=== PATIENT | male | born 1950 | race Caucasian/White ===

== ENCOUNTER → 2023-08-03 | Outpatient (CLI) | payer MEDICARE ==
[2023-08-03 13:47] LABS: INR 1.85 (0.9-1.15); Prothrombin Time 18.7 sec (9.3-11.8)
== END | disposition home or self-care (01) ==
LOC: LAB 12:42
DX: I48.19 Other persistent atrial fibrillation (principal); Z79.01 Long term (current) use of anticoagulants
CPT/HCPCS: 36415; 85610

== ENCOUNTER → 2023-08-21 | Outpatient (CLI) | payer MEDICARE ==
[2023-08-21 10:40] LABS: INR 1.41 (0.9-1.15); Prothrombin Time 14.5 sec (9.3-11.8)
== END | disposition home or self-care (01) ==
LOC: LAB 10:09
DX: I48.19 Other persistent atrial fibrillation (principal); Z79.01 Long term (current) use of anticoagulants
CPT/HCPCS: 36415; 85610

== ENCOUNTER → 2023-10-09 | Outpatient (CLI) | payer MEDICARE ==
[2023-10-09 13:27] LABS: INR 1.8 (0.9-1.15); Prothrombin Time 18.2 sec (9.3-11.8)
== END | disposition home or self-care (01) ==
LOC: LAB 12:52
DX: I48.0 Paroxysmal atrial fibrillation (principal); Z79.01 Long term (current) use of anticoagulants
CPT/HCPCS: 36415; 85610

== ENCOUNTER → 2023-10-22 | Outpatient (CLI) | payer MEDICARE ==
[2023-10-22 11:28] LABS: Basophils # (auto) 0.1 10 ^3/uL (0-0.2); Eosinophils # (auto) 0.2 10 ^3/uL (0-0.8); Lymphocytes # (auto) 2.4 10 ^3/uL (0.4-5.4); Mean Corpuscular Volume 82.5 fL (80.0-100.0); Monocytes # (auto) 0.9 10 ^3/uL (0-1.3); Neutrophils # (auto) 5.1 10 ^3/uL (1.6-8.6)
[2023-10-22 11:30] LABS: Basophils % (auto) 0.7 % (0.0-2.0); Eosinophils % (auto) 1.8 % (0.0-7.0); Hematocrit 34.4 % (41.0-53.0); Lymphocytes % (auto) 28.2 % (10.0-50.0); Mean Corpuscular Hemoglobin 26.5 pg (28.0-32.0); Mean Corpuscular Hgb Conc. 32.1 g/dL (32.0-36.0); Monocytes % (auto) 10.4 % (0.0-12.0); Neutrophils % (auto) 58.9 % (37.0-80.0); Nucleated Red Blood Cells % 0.1 %; Red Blood Cells 4.17 10^6/uL (4.5-5.90); Red Cell Distribution Width 16.7 % (11.8-14.3); White Blood Cell 8.7 10^3/uL (4.4-10.8)
[2023-10-22 11:51] LABS: INR 2.16 (0.9-1.15); Prothrombin Time 21.6 sec (9.3-11.8)
[2023-10-22 11:56] LABS: Alanine Aminotransferase 15 U/L (7-40); Albumin 4.2 g/dL (3.2-4.8); Alkaline Phosphatase 74 U/L (46-116); Anion Gap 5 (5-15); Aspartate Aminotransferase 23 U/L (13-40); BUN/Creatinine Ratio 18.8 (10.0-20.0); Bilirubin, Total 0.2 mg/dL (0.2-1.0); Blood Urea Nitrogen 19 mg/dL (9-23); Calcium 9.2 mg/dL (8.5-10.1); Carbon Dioxide 29 mmol/L (20-30); Chloride 103 mmol/L (98-107); Glucose 115 mg/dL (74-106); Potassium 4.6 mmol/L (3.5-5.1); Sodium 137 mmol/L (136-145); Total Protein 6.4 g/dL (5.7-8.2)
== END | disposition home or self-care (01) ==
LOC: LAB 10:41
DX: E11.42 Type 2 diabetes mellitus with diabetic polyneuropathy (principal); I48.19 Other persistent atrial fibrillation; Z79.01 Long term (current) use of anticoagulants
CPT/HCPCS: 36415; 80053; 85025; 85610; 85730

== ENCOUNTER → 2023-10-30 | Outpatient (CLI) | payer MEDICARE ==
[2023-10-30 11:04] LABS: INR 2.88 (0.9-1.15); Partial Thromboplastin Time 39.6 SEC (24.5-34.5); Prothrombin Time 28.2 sec (9.3-11.8)
[2023-10-30 11:24] LABS: Alanine Aminotransferase 17 U/L (7-40); Albumin 4.2 g/dL (3.2-4.8); Alkaline Phosphatase 79 U/L (46-116); Anion Gap 8 (5-15); Aspartate Aminotransferase 17 U/L (13-40); BUN/Creatinine Ratio 17.7 (10.0-20.0); Blood Urea Nitrogen 17 mg/dL (9-23); Calcium 8.8 mg/dL (8.7-10.4); Carbon Dioxide 24 mmol/L (20-30); Chloride 104 mmol/L (98-107); Glucose 258 mg/dL (74-106); Potassium 4.2 mmol/L (3.5-5.1); Sodium 136 mmol/L (136-145)
[2023-10-30 11:25] LABS: Bilirubin, Total < 0.2 mg/dL (0.2-1.0); Total Protein 6.7 g/dL (5.7-8.2)
== END | disposition home or self-care (01) ==
LOC: LAB 10:28
DX: E11.42 Type 2 diabetes mellitus with diabetic polyneuropathy (principal); I48.19 Other persistent atrial fibrillation; Z79.01 Long term (current) use of anticoagulants
CPT/HCPCS: 36415; 80053; 83036; 85610; 85730

== ENCOUNTER 2024-01-01 15:21 | Inpatient (IN) | payer MEDICARE ==
[~2024-01-01] VITALS: Ht 170.2 cm; Wt 117.7 kg
[2024-01-01 15:42] LABS: Basophils # (auto) 0.1 10 ^3/uL (0-0.2); Basophils % (auto) 0.8 % (0.0-2.0); Eosinophils # (auto) 0.2 10 ^3/uL (0-0.8); Eosinophils % (auto) 2.6 % (0.0-7.0); Hematocrit 34.7 % (41.0-53.0); Hemoglobin 10.4 g/dL (13.5-17.5); Lymphocytes # (auto) 2.1 10 ^3/uL (0.4-5.4); Lymphocytes % (auto) 22.4 % (10.0-50.0); Mean Corpuscular Hemoglobin 22.3 pg (28.0-32.0); Mean Corpuscular Hgb Conc. 29.9 g/dL (32.0-36.0); Mean Corpuscular Volume 74.5 fL (80.0-100.0); Monocytes # (auto) 1.1 10 ^3/uL (0-1.3); Monocytes % (auto) 11.6 % (0.0-12.0); Neutrophils # (auto) 5.8 10 ^3/uL (1.6-8.6); Neutrophils % (auto) 62.6 % (37.0-80.0); Nucleated Red Blood Cells % 0.2 %; Red Blood Cells 4.66 10^6/uL (4.5-5.90); Red Cell Distribution Width 19.8 % (11.8-14.3); White Blood Cell 9.2 10^3/uL (4.4-10.8)
[2024-01-01 15:56] LABS: INR 1.61 (0.9-1.15); Partial Thromboplastin Time 29.5 SEC (24.5-34.5); Prothrombin Time 16.5 sec (9.3-11.8)
[2024-01-01 15:59] LABS: Alanine Aminotransferase 17 U/L (7-40); Albumin 4.2 g/dL (3.2-4.8); Alkaline Phosphatase 94 U/L (46-116); Anion Gap 8 (5-15); Aspartate Aminotransferase 22 U/L (13-40); BUN/Creatinine Ratio 16.3 (10.0-20.0); Blood Urea Nitrogen 16 mg/dL (9-23); Calcium 9.8 mg/dL (8.5-10.1); Carbon Dioxide 27 mmol/L (20-30); Chloride 102 mmol/L (98-107); Glucose 184 mg/dL (74-106); Potassium 4.1 mmol/L (3.5-5.1); Sodium 137 mmol/L (136-145)
[2024-01-01 16:00] VITALS: PULSE 68; RESP 19; O2SAT 95
[2024-01-01 16:00] LABS: Bilirubin, Total 0.3 mg/dL (0.2-1.0); Total Protein 6.4 g/dL (5.7-8.2)
[2024-01-01] MEDS: SODIUM CHLORIDE 0.9% 1,000 ML IV ONE (16:27)
[2024-01-01] MEDS: ASPirin 325 MG TAB PO ONE (18:25)
[2024-01-01] MEDS: ENOXAPARIN SOD 100 MG/1 ML SYRINGE SC ONE (18:25)
[2024-01-01] MEDS ORDERED: HYDR25TA5 PO (18:58)
[2024-01-01] MEDS ORDERED: CYCL-614 PO (18:58)
[2024-01-01] MEDS ORDERED: DILT1TAB2 (18:58)
[2024-01-01] MEDS ORDERED: OXY5T PO (18:58)
[2024-01-01] MEDS ORDERED: TRAM50TA2 PO (18:58)
[2024-01-01] MEDS ORDERED: WARF-115 PO (18:58)
[2024-01-01] MEDS ORDERED: METO1TAB9 PO (18:58)
[2024-01-01] MEDS ORDERED: LISI40TA16 PO (18:58)
[2024-01-01] MEDS ORDERED: METF-372 PO (18:58)
[2024-01-01] MEDS ORDERED: GABA-1250 PO (18:58)
[2024-01-01] MEDS ORDERED: NITROGLYCERIN 0.4 MG SL TAB SL PRN (19:00)
[2024-01-01] MEDS ORDERED: MORPHINE SULFATE INJ 2 MG/ml SYRG IV PRN (19:00)
[2024-01-01 19:13] LABS: Triglycerides 163 mg/dL (< 150)
[2024-01-01 19:14] LABS: LDL Cholesterol 93 mg/dL (< 100)
[2024-01-01 19:15] LABS: Cholesterol 141 mg/dL (< 200); HDL Cholesterol 31 mg/dL (40-59)
[2024-01-01 19:30] VITALS: PULSE 65; RESP 17; O2SAT 96
[2024-01-01] MEDS ORDERED: DEXTROSE (50%) 50ML SYRG IV PRN (19:30)
[2024-01-01] MEDS: SODIUM CHLORIDE 0.9% 1,000 ML IV SCH (21:30)
[2024-01-01] MEDS: MAGNESIUM SULFATE 1GM/100ML 100 ML IV SCH (21:31)
[2024-01-01] MEDS: ACCU-CHEK COMFORT CURVE STRIP VI SCH (21:42)
[2024-01-01] MEDS: CYCLOBENZAPRINE HCL 10 MG TAB PO SCH (21:47)
[2024-01-01] MEDS: GABAPENTIN 300 MG CAP PO SCH (21:47)
[2024-01-01] MEDS: InsuLIN REG 1unit/0.01ml Soln (100units/ml) SC SCH (21:48)
[2024-01-02] VITALS (8 sets, daily range): BP systolic 82–136; BP diastolic 46–74; PULSE 50–82; RESP 17–20; TEMP 97.6–98.2; O2SAT 92–97
[2024-01-02] MEDS: oxyCODONE HCL 5MG TAB PO PRN (00:37)
[2024-01-02] MEDS ORDERED: WARF-66 PO (04:09)
[2024-01-02] MEDS: SODIUM CHLORIDE 0.9% 500 ML IV ONE (04:21)
[2024-01-02 06:37] LABS: Basophils # (auto) 0.1 10 ^3/uL (0-0.2); Eosinophils # (auto) 0.3 10 ^3/uL (0-0.8); Neutrophils # (auto) 4.8 10 ^3/uL (1.6-8.6); Nucleated Red Blood Cells % 0.1 %
[2024-01-02 06:40] LABS: Eosinophils % (auto) 3.1 % (0.0-7.0); Lymphocytes # (auto) 2.2 10 ^3/uL (0.4-5.4); Lymphocytes % (auto) 26.5 % (10.0-50.0); Mean Corpuscular Hemoglobin 22.4 pg (28.0-32.0); Mean Corpuscular Hgb Conc. 29.9 g/dL (32.0-36.0); Mean Corpuscular Volume 74.8 fL (80.0-100.0); Monocytes % (auto) 11.7 % (0.0-12.0); Neutrophils % (auto) 57.7 % (37.0-80.0); Red Blood Cells 4.01 10^6/uL (4.5-5.90); Red Cell Distribution Width 19.3 % (11.8-14.3); White Blood Cell 8.2 10^3/uL (4.4-10.8)
[2024-01-02 07:14] LABS: Alanine Aminotransferase 14 U/L (7-40); Albumin 3.5 g/dL (3.2-4.8); Alkaline Phosphatase 74 U/L (46-116); Anion Gap 4 (5-15); Aspartate Aminotransferase 31 U/L (13-40); BUN/Creatinine Ratio 14.7 (10.0-20.0); Bilirubin, Total 0.2 mg/dL (0.2-1.0); Blood Urea Nitrogen 15 mg/dL (9-23); Calcium 8.8 mg/dL (8.5-10.1); Carbon Dioxide 29 mmol/L (20-30); Chloride 104 mmol/L (98-107); Glucose 125 mg/dL (74-106); Potassium 4.4 mmol/L (3.5-5.1); Sodium 137 mmol/L (136-145); Total Protein 5.6 g/dL (5.7-8.2)
[2024-01-02] MEDS: DOCUSATE SOD 100 MG CAP PO PRN (09:28)
[2024-01-02] MEDS: ENOXAPARIN SOD 40 MG/0.4 ML SYRINGE SC SCH (09:28)
[2024-01-02] MEDS: ASPirin 81 mg TAB PO SCH (10:00)
[2024-01-02 16:06] LABS: INR 2.14 (0.9-1.15); Partial Thromboplastin Time 35.6 SEC (24.5-34.5); Prothrombin Time 21.4 sec (9.3-11.8)
[2024-01-02] MEDS: POLYETHYLENE GLYCOL 17 GM PWDR PO PRN (17:20)
[2024-01-02] MEDS: WARFARIN SODIUM 2.5 MG TAB PO ONE (18:00)
[2024-01-03] VITALS (10 sets, daily range): BP systolic 124–141; BP diastolic 73–95; PULSE 63–93; RESP 18–20; TEMP 97.4–98.2; O2SAT 90–96
[2024-01-03 07:40] LABS: INR 2.2 (0.9-1.15)
[2024-01-03] MEDS: WARFARIN SODIUM 5 MG TAB PO ONE (17:01)
[2024-01-04] VITALS (8 sets, daily range): BP systolic 108–136; BP diastolic 62–73; PULSE 24–96; RESP 17–20; TEMP 97.8–98.7; O2SAT 93–97
[2024-01-04 07:06] LABS: INR 1.91 (0.9-1.15); Prothrombin Time 19.3 sec (9.3-11.8)
[2024-01-04] MEDS ORDERED: WARFARIN SODIUM 5 MG TAB PO ONE (18:00)
[2024-01-05] VITALS (8 sets, daily range): BP systolic 114–136; BP diastolic 58–85; PULSE 76–103; RESP 16–22; TEMP 97.4–98.8; O2SAT 95–99
[2024-01-05 06:27] LABS: INR 1.42 (0.9-1.15); Prothrombin Time 14.7 sec (9.3-11.8)
[2024-01-06] VITALS (8 sets, daily range): BP systolic 103–130; BP diastolic 67–85; PULSE 77–108; RESP 18–20; TEMP 97.8–98.3; O2SAT 90–97
[2024-01-06] MEDS: GABAPENTIN 300 MG CAP PO SCH (05:55)
[2024-01-07] VITALS (48 sets, daily range): BP systolic 53–157; BP diastolic 18–92; PULSE 55–104; RESP 14–24; TEMP 96–98.9; O2SAT 95–100
[2024-01-07] MEDS: PROPOFOL 400 ML IV ONE (07:02)
[2024-01-07] MEDS ORDERED: KETAMINE 50mg/ML 1ml syringe ONE (07:04)
[2024-01-07] MEDS ORDERED: fentaNYL CITRATE 100 MCG/2 ML VL ONE (07:05)
[2024-01-07] MEDS ORDERED: MIDAZOLAM HCL 2MG/2ML 2ml VIAL (1mg/ml) ONE (07:05)
[2024-01-07] MEDS ORDERED: HYDROmorphone HCL 2 MG/ML VL/or syr ONE (07:05)
[2024-01-07] MEDS: levoFLOXacin 750MG 150 ML IV ONE (07:45)
[2024-01-07] MEDS: ceFAZolin 2 GM/D5W50ml 50 ML IV ONE (07:53)
[2024-01-07] MEDS: ONDANSETRON HCL 4 MG/2 ML VIAL IV ONE (11:45)
[2024-01-07] MEDS ORDERED: MIDAZOLAM HCL 2MG/2ML 2ml VIAL (1mg/ml) IV PRN (11:45)
[2024-01-07] MEDS ORDERED: fentaNYL CITRATE 100 MCG/2 ML VL IV PRN (11:45)
[2024-01-07] MEDS ORDERED: HYDROmorphone HCL 2 MG/ML VL/or syr IV PRN (11:45)
[2024-01-07] MEDS: HYDROmorphone HCL 2 MG/ML VL/or syr ONE (11:56)
[2024-01-07] MEDS: MIDAZOLAM DRIP 50 mg/50mL 50 ML IV ONE (11:56)
[2024-01-07] MEDS: MIDAZOLAM DRIP 50 mg/50mL 50 ML IV SCH (11:57)
[2024-01-07] MEDS: ACCU-CHEK COMFORT CURVE STRIP VI ONE (11:58)
[2024-01-07] MEDS: fentaNYL Drip 2500mCg/250mlNS 250 ML IV SCH (12:19)
[2024-01-07 13:12] LABS: Base Excess 3.1 mmol/L (-2.0-2.0)
[2024-01-07] MEDS: NOREPINEPHRINE 8 MG/250ML KIT 250 ML IV SCH (16:10)
[2024-01-07] MEDS: SODIUM CHLORIDE 0.9% 1,000 ML IV ONE (16:10)
[2024-01-07] MEDS: SODIUM CHLORIDE 0.9% 1,000 ML IV SCH (17:41)
[2024-01-07 18:55] LABS: Alanine Aminotransferase 12 U/L (7-40); Albumin 3.6 g/dL (3.2-4.8); Alkaline Phosphatase 79 U/L (46-116); Anion Gap 4 (5-15); Aspartate Aminotransferase 19 U/L (13-40); BUN/Creatinine Ratio 14.8 (10.0-20.0); Blood Urea Nitrogen 12 mg/dL (9-23); Calcium 8.5 mg/dL (8.5-10.1); Carbon Dioxide 28 mmol/L (20-30); Chloride 104 mmol/L (98-107); Glucose 223 mg/dL (74-106); Magnesium 1.7 mg/dL (1.6-2.6); Potassium 5.1 mmol/L (3.5-5.1); Sodium 136 mmol/L (136-145)
[2024-01-07 18:56] LABS: Bilirubin, Total 0.3 mg/dL (0.2-1.0)
[2024-01-07 19:20] LABS: Basophils # (auto) 0 10 ^3/uL (0-0.2); Basophils % (auto) 0.1 % (0.0-2.0); Eosinophils # (auto) 0 10 ^3/uL (0-0.8); Hemoglobin 8.2 g/dL (13.5-17.5); Lymphocytes # (auto) 0.8 10 ^3/uL (0.4-5.4); Monocytes # (auto) 0.2 10 ^3/uL (0-1.3); Monocytes % (auto) 2.5 % (0.0-12.0)
[2024-01-07 19:22] LABS: Hematocrit 27.9 % (41.0-53.0); Lymphocytes % (auto) 8.6 % (10.0-50.0); Mean Corpuscular Hemoglobin 22.4 pg (28.0-32.0); Mean Corpuscular Hgb Conc. 29.4 g/dL (32.0-36.0); Neutrophils # (auto) 7.9 10 ^3/uL (1.6-8.6); Neutrophils % (auto) 88.8 % (37.0-80.0); Red Blood Cells 3.67 10^6/uL (4.5-5.90); Red Cell Distribution Width 19.7 % (11.8-14.3); White Blood Cell 8.9 10^3/uL (4.4-10.8)
[2024-01-08] VITALS (84 sets, daily range): BP systolic 94–164; BP diastolic 38–150; PULSE 54–134; RESP 11–31; TEMP 98.1–98.4; O2SAT 92–100
[2024-01-08 09:15] LABS: Base Excess 2.5 mmol/L (-2.0-2.0)
[2024-01-08] MEDS: SODIUM CHLORIDE 0.9% 1,000 ML IV SCH (09:25)
[2024-01-08] MEDS: PANTOPRAZOLE 40 MG/10 ML VIAL INJ IV SCH (12:09)
[2024-01-08] MEDS ORDERED: MORPHINE SULFATE INJ 2 MG/ml SYRG IV PRN (12:30)
[2024-01-08] MEDS ORDERED: ONDANSETRON HCL 4 MG/2 ML VIAL IV PRN (12:30)
[2024-01-08] MEDS: MORPHINE SULFATE INJ 2 MG/ml SYRG IV PRN (12:48)
[2024-01-09 05:32] VITALS: BP 96/54; PULSE 93; RESP 19; TEMP 98.4; O2SAT 93
[2024-01-09 08:00] VITALS: PULSE 103; PULSE 91; RESP 18; O2SAT 94
[2024-01-09 09:16] VITALS: BP 137/86; PULSE 92; RESP 20; TEMP 98.1; O2SAT 97
[2024-01-09 12:52] VITALS: BP 127/64; PULSE 82; RESP 18; TEMP 97.7; O2SAT 94
[2024-01-09 17:06] VITALS: BP 151/79; PULSE 100; RESP 20; TEMP 98; O2SAT 94
[2024-01-09 20:00] VITALS: PULSE 87; PULSE 88; RESP 18; O2SAT 97
[2024-01-10] MEDS: ACETAMINOPHEN 325 MG TAB PO PRN (04:24)
[2024-01-10 08:00] VITALS: PULSE 104; PULSE 87; RESP 18; O2SAT 97
[2024-01-10 09:00] VITALS: BP 147/77; PULSE 99; RESP 16; TEMP 97.6; O2SAT 93
[2024-01-10 13:00] VITALS: BP 132/74; PULSE 81; RESP 16; TEMP 97.4; O2SAT 98
[2024-01-10 16:17] LABS: INR 1.03 (0.9-1.15); Prothrombin Time 10.9 sec (9.3-11.8)
[2024-01-10 17:00] VITALS: BP 144/80; PULSE 85; RESP 16; TEMP 97.6; O2SAT 95
[2024-01-10 20:00] VITALS: PULSE 108; PULSE 110; RESP 21; O2SAT 94
[2024-01-10] MEDS: HYDROcodone-ACET 7.5/325MG TAB PO ONE (23:37)
[2024-01-11 08:15] VITALS: PULSE 102; PULSE 108; RESP 21; O2SAT 0
[2024-01-11 09:00] VITALS: BP 128/66; PULSE 83; RESP 18; TEMP 98; O2SAT 100
[2024-01-11 10:44] LABS: Basophils # (auto) 0 10 ^3/uL (0-0.2); Eosinophils # (auto) 0.2 10 ^3/uL (0-0.8); Hemoglobin 8.9 g/dL (13.5-17.5); Lymphocytes # (auto) 1.1 10 ^3/uL (0.4-5.4); Mean Corpuscular Volume 75.2 fL (80.0-100.0); Neutrophils # (auto) 5.5 10 ^3/uL (1.6-8.6); Nucleated Red Blood Cells % 0.1 %
[2024-01-11 10:46] LABS: Basophils % (auto) 0.4 % (0.0-2.0); Eosinophils % (auto) 2.8 % (0.0-7.0); Hematocrit 29.7 % (41.0-53.0); Lymphocytes % (auto) 14.4 % (10.0-50.0); Mean Corpuscular Hemoglobin 22.4 pg (28.0-32.0); Mean Corpuscular Hgb Conc. 29.8 g/dL (32.0-36.0); Monocytes # (auto) 0.8 10 ^3/uL (0-1.3); Monocytes % (auto) 10.5 % (0.0-12.0); Neutrophils % (auto) 71.9 % (37.0-80.0); Red Blood Cells 3.95 10^6/uL (4.5-5.90); Red Cell Distribution Width 20.5 % (11.8-14.3); White Blood Cell 7.7 10^3/uL (4.4-10.8)
[2024-01-11] MEDS ORDERED: OXYCODONE W/ ACETAMINOPHEN 5/325MG TABLET PO PRN (11:30)
[2024-01-11] MEDS ORDERED: POLY1POW50 PO (11:39)
[2024-01-11] MEDS ORDERED: CETI10TA2 PO (11:39)
[2024-01-11] MEDS ORDERED: OMEP20TA PO (11:39)
[2024-01-11 13:00] VITALS: BP 145/70; PULSE 85; RESP 17; TEMP 98; O2SAT 100
[2024-01-11] MEDS: HYDROcodone-ACET 7.5/325MG TAB PO PRN (13:48)
[2024-01-11] MEDS: WARFARIN SODIUM 5 MG TAB PO ONE (16:56)
[2024-01-11 17:00] VITALS: BP 123/66; PULSE 74; RESP 17; TEMP 98.1; O2SAT 100
[2024-01-11 20:00] VITALS: PULSE 88; PULSE 89; RESP 16; O2SAT 100
[2024-01-11] MEDS: OXYCODONE W/ ACETAMINOPHEN 5/325MG TABLET PO PRN (20:03)
[2024-01-11 21:00] VITALS: BP 153/72; PULSE 88; RESP 17; TEMP 98.1; O2SAT 100
[2024-01-12 00:15] LABS: COVID19 ANTIGEN SOFIA FIA NEGATIVE (NEGATIVE)
[2024-01-12 01:00] VITALS: BP 123/75; PULSE 77; RESP 17; TEMP 97.4; O2SAT 100
[2024-01-12 04:54] VITALS: BP 130/69; PULSE 75; RESP 14; TEMP 97.5; O2SAT 100
[2024-01-12 08:00] VITALS: PULSE 92; RESP 20; O2SAT 92
[2024-01-12 09:18] VITALS: BP 126/64; PULSE 72; RESP 18; TEMP 99; O2SAT 98
[2024-01-12 10:53] LABS: Basophils # (auto) 0.1 10 ^3/uL (0-0.2); Basophils % (auto) 0.9 % (0.0-2.0); Eosinophils # (auto) 0.3 10 ^3/uL (0-0.8); Lymphocytes # (auto) 1.1 10 ^3/uL (0.4-5.4); Mean Corpuscular Hemoglobin 22.2 pg (28.0-32.0); Monocytes # (auto) 0.7 10 ^3/uL (0-1.3); Red Cell Distribution Width 20.3 % (11.8-14.3)
[2024-01-12 10:56] LABS: Hemoglobin 8.9 g/dL (13.5-17.5); Lymphocytes % (auto) 16.6 % (10.0-50.0); Mean Corpuscular Hgb Conc. 29.6 g/dL (32.0-36.0); Mean Corpuscular Volume 75.2 fL (80.0-100.0); Monocytes % (auto) 9.8 % (0.0-12.0); Neutrophils # (auto) 4.6 10 ^3/uL (1.6-8.6); Neutrophils % (auto) 68.7 % (37.0-80.0); Red Blood Cells 3.99 10^6/uL (4.5-5.90); White Blood Cell 6.7 10^3/uL (4.4-10.8)
[2024-01-12 10:58] LABS: Chloride 102 mmol/L (98-107); Potassium 3.9 mmol/L (3.5-5.1); Sodium 138 mmol/L (136-145)
[2024-01-12 11:00] LABS: Anion Gap 3 (5-15); Carbon Dioxide 33 mmol/L (20-30)
[2024-01-12 11:04] LABS: BUN/Creatinine Ratio 12.9 (10.0-20.0); Blood Urea Nitrogen 8 mg/dL (9-23); Glucose 124 mg/dL (74-106)
[2024-01-12 11:06] LABS: INR 1.01 (0.9-1.15); Prothrombin Time 10.7 sec (9.3-11.8)
[2024-01-12 12:46] VITALS: BP 123/69; PULSE 73; RESP 18; TEMP 98.9; O2SAT 98
[2024-01-12] MEDS: levoFLOXacin 250 MG TAB PO ONE (12:47)
[2024-01-12] MEDS: DexAMETHasone SOD PHOS 10MG/1ML VIAL INJ IV SCH (15:00)
[2024-01-12 17:27] VITALS: BP 129/76; PULSE 79; RESP 18; TEMP 98.1; O2SAT 99
[2024-01-12] MEDS: WARFARIN SODIUM 5 MG TAB PO ONE (17:27)
[2024-01-13] MEDS ORDERED: levoFLOXacin 250 MG TAB PO SCH (10:00)
== END 2024-01-12 19:06 | DRG 471 ==
LOC: ER 15:21 → TELE 18:56 → TELE-EAST 22:10 → ICU WEST 01-07 14:36 → TELE-WESTW 01-08 18:19 → WEST WING 01-12 04:20
PROVIDERS: ADMIT Family Medicine; ATTEND Family Medicine
PROC: 0RB30ZZ Excision of Cervical Vertebral Disc, Open Approach (ICD-10-PCS; 2024-01-07)
PROC: 01N10ZZ Release Cervical Nerve, Open Approach (ICD-10-PCS; 2024-01-07)
PROC: 00NW0ZZ Release Cervical Spinal Cord, Open Approach (ICD-10-PCS; 2024-01-07)
PROC: 4A11X4G Monitoring of Peripheral Nervous Electrical Activity, Intraoperative, External Approach (ICD-10-PCS; 2024-01-07)
PROC: 5A1935Z Respiratory Ventilation, Less than 24 Consecutive Hours (ICD-10-PCS; 2024-01-07)
PROC: 0BH18EZ Insertion of Endotracheal Airway into Trachea, Via Natural or Artificial Opening Endoscopic (ICD-10-PCS; 2024-01-07)
PROC: 0RG20A0 Fusion of 2 or more Cervical Vertebral Joints with Interbody Fusion Device, Anterior Approach, Anterior Column, Open Approach (ICD-10-PCS; principal; 2024-01-07 08:22)
PROC: 0BP1XDZ Removal of Intraluminal Device from Trachea, External Approach (ICD-10-PCS; 2024-01-08)
DX: M48.02 Spinal stenosis, cervical region (principal); J96.01 Acute respiratory failure with hypoxia; R57.1 Hypovolemic shock; I20.0 Unstable angina; M50.01 Cervical disc disorder with myelopathy, high cervical region; E83.42 Hypomagnesemia; M50.11 Cervical disc disorder with radiculopathy, high cervical region; Z20.822 Contact with and (suspected) exposure to COVID-19; I48.91 Unspecified atrial fibrillation; E11.9 Type 2 diabetes mellitus without complications; I10 Essential (primary) hypertension; E66.01 Morbid (severe) obesity due to excess calories; G47.33 Obstructive sleep apnea (adult) (pediatric); G89.4 Chronic pain syndrome; E78.5 Hyperlipidemia, unspecified; J44.9 Chronic obstructive pulmonary disease, unspecified; Z63.4 Disappearance and death of family member; Z98.84 Bariatric surgery status; Z79.01 Long term (current) use of anticoagulants; Z82.49 Family history of ischemic heart disease and other diseases of the circulatory system; Z88.8 Allergy status to other drugs, medicaments and biological substances; Z68.39 Body mass index [BMI] 39.0-39.9, adult
CPT/HCPCS: 36415; 36600; 70490; 71045; 72040; 76000; 80048; 80053; 80061; 82805; 82962; 83605; 83735; 83880; 84443; 84484; 85025; 85379; 85610; 85730; 86850; 86900; 86901; 87070; 87081; 87205; 87426; 92507; 92610; 93005; 93306; 94003; 94640; 96360; 96361; 96372; C9113; G0378; J1815; J2250; J2704

== ENCOUNTER 2025-01-14 23:47 | Inpatient (IN) | payer MEDICARE ==
[~2025-01-14] VITALS: Ht 170.2 cm; Wt 113.0 kg
[~2025-01-14 23:47] MED LIST: CETI10TA2 PO; CYCL-614 PO; DILT1TAB2; GABA-1250 PO; HYDR25TA5 PO; LISI40TA16 PO; METF-372 PO; METO1TAB9 PO; OMEP20TA PO; OXY5T PO; POLY1POW50 PO; TRAM50TA2 PO; WARF-115 PO; WARF-66 PO
[2025-01-15] VITALS (10 sets, daily range): BP systolic 103–117; BP diastolic 47–66; PULSE 63–103; RESP 16–24; TEMP 97.2–98.3; O2SAT 93–98
[2025-01-15] MEDS: DICYCLOMINE HCL (10MG/ML) 2 ML AMPULE IM ONE (00:29)
[2025-01-15] MEDS: ONDANSETRON HCL 4 MG/2 ML VIAL IV ONE (00:29)
[2025-01-15] MEDS: HYDROcodone-ACET 10/325MG TAB PO ONE (00:30)
[2025-01-15] MEDS: SODIUM CHLORIDE 0.9% 1,000 ML IV ONE ×2 (00:34→01:56)
[2025-01-15 00:41] LABS: Basophils # (auto) 0.1 10 ^3/uL (0-0.2)
--- NOTE | 2025-01-15 00:43 | ED.PDOC ---
History of Present Illness HPI Comments 74-year-old male with a history of AFib, anemia, hypertension, ARIANNE, gastric bypass and chronic back pain brought in by EMS from home after a near syncopal episode. Patient states he developed indigestion around 2330 which progressed to severe epigastric pain radiating to the chest, mid and lower abdomen. Patient states the pain is sharp and pressure-like, severe, associated with nausea and constipation, no particular exacerbating or alleviating factors. Patient denies vomiting, shortness a breath, edema, fever or urinary symptoms. Patient's blood pressure was noted to be in the 80s systolic on arrival by EMS. An IV fluid bolus was initiated by EMS. Chief Complaint: General Weakness Time Seen by MD: 23:52 Primary Care Provider: Elva Allergies: Coded Allergies: Statins (Verified Allergy, Severe, 01/01/24) Home Meds Reported Medications Cetirizine Hcl (Kls Aller-Renetta) 10 Mg Tab, 1 TAB PO DAILY, #30 TAB 3 Refills 01/11/24 Omeprazole (Gnp Omeprazole) 20 Mg Tab, 1 TAB PO BID, #90 TAB 1 Refill 01/11/24 Polyethylene Glycol 3350 (Polyethylene Glycol) 17 Gm/Scoop Pow, 17 GM PO DAILY, POW 01/11/24 Warfarin Sodium (Warfarin Sodium) 5 Mg Tab, 15 MG PO MWFSa for 30 Days, MG 01/02/24 Diltiazem Hcl (Cardizem La) 120 Mg Tab, 1 01/01/24 Hctz (Hydrochlorothiazide) 25 Mg Tab, 1 TAB PO DAILY 01/01/24 Lisinopril (Lisinopril) 40 Mg Tab, 1 TAB PO DAILY 01/01/24 Warfarin Sodium (Warfarin Sodium) 10 Mg Tab, 1 TAB PO TUE,BROOKE,SUN 01/01/24 Tramadol Hcl (Tramadol Hcl) 50 Mg Tab, 1 TAB PO BIDPRN PRN 01/01/24 Cyclobenzaprine HCl (Cyclobenzaprine Hydrochlo) 5 Mg Tab, 1 TAB PO BID 01/01/24 Gabapentin (Gabapentin) 300 Mg Cap, 3 CAP PO TID 01/01/24 Metoprolol Succinate (Metoprolol Succinate Er) 100 Mg Tab, 1 TAB PO DAILY 01/01/24 Metformin Hydrochloride (Metformin Hcl) 1,000 Mg Tab, 1 TAB PO BID 01/01/24 Oxycodone Hcl (OXYCODONE HCL) 5 Mg Tb, 1 TAB PO TID PRN 01/01/24 Past Medical History PAST MEDICAL HISTORY: AFIB, HTN Past Medical History (Other): Anemia, sleep apnea Surgical History (Other): Gastric bypass, right knee, cervical and lumbar laminectomies Family History Family History: Reviewed,noncontributory to illness Social History Smoker: Non-Smoker, Unknown Alcohol: Denies ETOH Use, Unknown Drugs: Denies Drug Use Lives In: Home All Other Systems: Reviewed and Negative (Comprehensive systems review obtained and negative except for what is stated in the HPI.) Physical Exam General Appearance: Moderate Distress, Obese HEENT: Other (Pupils and face symmetric. Moist mucous membranes.) Neck: Full Range of Motion, Non-Tender, Normal Inspection, Supple Respiratory: Lungs Clear, No Accessory Muscle Use, No Respiratory Distress, Normal Breath Sounds Cardiovascular: Irregular, No Edema, No JVD Breast Exam: Deferred Gastrointestinal: Diffuse, Soft, Tenderness Genitalia: Deferred Pelvic: Deferred Rectal: Deferred Extremities: Normal inspection, Normal range of motion, Non-tender, No pedal edema Neurologic: Alert (Oriented x4), Normal Affect, Normal Mood, Other (Moves all e xtremities. Light touch sensation grossly intact. No gross focal deficit.) Cerebellar Function: NOT DONE Reflexes: NOT DONE Skin: Dry, Pallor, Warm Lymphatic: NOT DONE Was a procedure done? Was a procedure done?: No EKG EKG : Comments AFib, rate 62, QRS prolonged at 154, normal QTC interval, left axis deviation, old inferior infarct, right bundle-branch block and left anterior fascicular block, nonspecific T change. Differential Dx Considerations may include: Vasovagal reaction, ACS, UT, arrhythmia, CHF, gastritis, gastroenteritis, pancreatitis, bowel obstruction, ischemic bowel, diverticular disease, biliary tract disease, colitis, UTI, anemia, electrolyte imbalance, hypovolemia, orthostasis, renal failure, among others X-Ray, Labs, Meds, VS Vital Signs Date Time Temp Pulse Resp B/P (MAP) Pulse Ox O2 Delivery O2 Flow Rate FiO2 01/15/25 00:17 63 117/47 (70) 01/15/25 00:16 97.2 61 22 102/54 (70) 92 97.2 01/15/25 00:16 64 20 108/60 (76) 92 01/15/25 00:04 98.8 69 22 80/62 (68) 89 98.8 01/14/25 23:49 62 Lab Test 01/15/25 01:28 01/15/25 00:28 Range/Units Troponin I High Sensitivity 4 4 </=54 ng/L White Blood Count 9.7 4.4-10.8 10^3/uL Red Blood Count 4.50 4.5-5.90 10^6/uL Hemoglobin 10.0 L 13.5-17.5 g/dL Hematocrit 33.9 L 41.0-53.0 % Mean Corpuscular Volume 75.4 L 80.0-100.0 fL Mean Corpuscular Hemoglobin 22.3 L 28.0-32.0 pg Mean Corpuscular Hemoglobin Concent 29.6 L 32.0-36.0 g/dL Red Cell Distribution Width 18.0 H 11.8-14.3 % Platelet Count 421 140-450 10^3/uL Mean Platelet Volume 7.0 6.9-10.8 fL Neutrophils (%) (Auto) 69.2 37.0-80.0 % Lymphocytes (%) (Auto) 21.0 10.0-50.0 % Monocytes (%) (Auto) 7.0 0.0-12.0 % Eosinophils (%) (Auto) 1.4 0.0-7.0 % Basophils (%) (Auto) 1.4 0.0-2.0 % Neutrophils # (Auto) 6.7 1.6-8.6 10 ^3/uL Lymphocytes # (Auto) 2.0 0.4-5.4 10 ^3/uL Monocytes # (Auto) 0.7 0-1.3 10 ^3/uL Eosinophils # (Auto) 0.1 0-0.8 10 ^3/uL Basophils # (Auto) 0.1 0-0.2 10 ^3/uL Nucleated Red Blood Cells 0.5 % Sodium Level 138 136-145 mmol/L Potassium Level 4.1 3.5-5.1 mmol/L Chloride Level 103 98-107 mmol/L Carbon Dioxide Level 27 20-31 mmol/L Anion Gap 8 5-15 Blood Urea Nitrogen 18 9-23 mg/dL Creatinine 1.02 0.700-1.30 mg/dL Glomerular Filtration Rate Calc 77 >90 mL/min BUN/Creatinine Ratio 17.6 10.0-20.0 Serum Glucose 210 H 74-106 mg/dL Lactic Acid Level 2.6 *H 0.4-2.0 mmol/L Calcium Level 8.8 8.7-10.4 mg/dL Total Bilirubin < 0.2 L 0.2-1.0 mg/dL Aspartate Amino Transferase (AST) 12 L 13-40 U/L Alanine Aminotransferase (ALT) < 9 7-40 U/L Alkaline Phosphatase 76 46-116 U/L B-Type Natriuretic Peptide 72.67 0-100 pg/mL Total Protein 6.4 5.7-8.2 g/dL Albumin 4.0 3.2-4.8 g/dL Lipase 54 H 12-53 U/L Current Medications Medications (Trade) Dose Ordered Sig/Vincent Route Start Time Stop Time Status Last Admin Sodium Chloride 1,000 ml @ 1,000 mls/hr Q1H ONCE IV 01/15/25 00:15 01/15/25 01:14 DC 01/15/25 00:34 Dicyclomine HCl (Bentyl Injection) 20 mg ONCE ONCE IM 01/15/25 00:15 01/15/25 00:16 DC 01/15/25 00:29 Ondansetron HCl (Zofran) 4 mg ONCE ONCE IV 01/15/25 00:15 01/15/25 00:16 DC 01/15/25 00:29 Acetaminophen/ Hydrocodone Bitart ([place]iberty 10/325MG Tab) 2 tab ONCE ONCE PO 01/15/25 00:15 01/15/25 00:16 DC 01/15/25 00:30 Sodium Chloride 1,000 ml @ 1,000 mls/hr Q1H ONCE IV 01/15/25 01:30 01/15/25 02:29 DC 01/15/25 01:56 Piperacillin Sod/ Tazobactam Sod 100 ml @ 100 mls/hr ONCE ONCE IV 01/15/25 01:30 01/15/25 02:29 DC 01/15/25 01:45 Albuterol (Ventolin Medneb) 5 mg ONCE ONCE NEB 01/15/25 01:30 01/15/25 01:31 DC 01/15/25 01:39 Ipratropium [place] (Atrovent Medneb) 0.5 mg ONCE ONCE NEB 01/15/25 01:30 01/15/25 01:31 DC 01/15/25 01:39 Methylprednisolone Sodium Succinate (Solu Medrol) 125 mg ONCE ONCE IV 01/15/25 01:30 01/15/25 01:31 DC 01/15/25 01:45 PROCEDURE(s): CXRP - CHEST PORTABLE REASON: cp ORDER NUMBER(s): [id number], ACCESSION NUMBER(s): [id number] CHEST RADIOGRAPH Indication: cp Technique: Single frontal view of the chest was obtained Comparison: XY CHEST PORTABLE on DOS: 01/07/24, XY CHEST PORTABLE on DOS: 01/01/24 FINDINGS: Lines and Tubes: None Lungs: Clear Pleura: No effusion. No pneumothorax. Cardiomediastinal contours: Unremarkable Bones: Unremarkable IMPRESSION: Clear lungs. EDURE(s): ABPL - CT AB PEL WO CON-NO ORAL OR IV REASON: abd pain near syncope hypotension ORDER NUMBER(s): [id number], ACCESSION NUMBER(s): [id number] Exam: CT CT AB PEL WO CON-NO ORAL OR IV History: abd pain near syncope hypotension Comparison Study: None Technique: Multidetector spiral CT of the abdomen was performed from lung bases to pubic symphysis. Imaging was performed without IV contrast. Axial, coronal and sagittal multiplanar reformats were obtained from the axial data set by the technologist. Radiation Dose : 1. Abdomen/Pelvis: CTDIvol 25 mGy, DLP 1596 mGy*cm. Findings: Evaluation of solid organs is limited due to lack of intravenous contrast use. Lung Bases: No acute or significant lung base finding. Normal heart size. No pleural or pericardial effusion. Liver: The liver is normal in size. No focal lesions. Gallbladder and Biliary Tree: Gallbladder is surgically absent. Spleen: Unremarkable Pancreas: The pancreas is grossly normal in appearance. Adrenal Glands: Unremarkable Kidneys: Kidneys are grossly normal without calculi or hydronephrosis. Large left renal cystic lesion measuring 10 cm. Bilateral perinephric fat stranding. The large left renal cystic lesion can be further evaluated with ultrasound if clinically indicated. Bladder: Grossly unremarkable for degree of distention. Bowel: Status post gastric bypass with foci of air seen scattered adjacent to the distal stomach. Moderate amount of free air seen along the midline anterior abdomen. Fecal retention throughout the colon. Ascites: Trace perisplenic ascites. Lymphadenopathy: No mesenteric, retroperitoneal or periportal lymphadenopathy. Abdominal Wall and Mesentery: Unremarkable. Vasculature: The visualized abdominal aorta is normal in size and caliber. Evaluation of abdominal and pelvic vessels is limited due to lack of intravenous contrast. Pelvic Organs: Unremarkable Musculoskeletal: No aggressive focal bony lesions, acute fractures or dislocation. IMPRESSION: Status post gastric bypass with foci of free air adjacent to the stomach concerning for perforation at the surgical incision sites from the bypass versus due to ulceration of the stomach. There is moderate amount of free air along the midline anterior abdomen adjacent to the transverse colon. Critical findings Critical Result: Pneumoperitoneum Findings discussed with JOSÉ MIGUEL MENENDEZ at 01/15/2025 01:46 AM, and acknowledged receipt and understanding of the findings. X-Ray, Labs, Meds, VS Comment 74-year-old male with a history of AFib, hypertension, ARIANNE and anemia brought in by EMS complaining of a near syncopal episode, chest and abdominal pain associated with nausea Vitals remarkable for blood pressure 80/62, respiratory rate 22, oxygen saturation 89% on room air Exam remarkable for moderate distress, pallor, irregularly irregular heart rhythm, diffuse abdominal tenderness Rhythm strip independently interpreted by me: AFib, rate sixty-two Chest x-ray negative CT abdomen and pelvis IMPRESSION: Status post gastric bypass with foci of free air adjacent to the stomach concerning for perforation at the surgical incision sites from the bypass versus due to ulceration of the stomach. There is moderate amount of free air along the midline anterior abdomen adjacent to the transverse colon. CBC remarkable for hemoglobin 10, hematocrit 33, CMP remarkable for glucose 210, lipase 54, BNP and 1st troponin negative, UA pending, lactic 2.6 Patient treated with the following in the ED: 3L 0.9 normal saline IV bolus, [place] 10/325 mg 2 tabs p.o., Zofran 4 mg IV, Bentyl 20 mg IM, Zosyn 4.5 g IV, vancomycin 1 g IV On re-evaluation, blood pressure was 102/54 and patient stated pain had improved. Case discussed with Dr. Bird, who requested NG tube and Marquez catheter be inserted and will see the patient. Plan is to admit the patient for IV antibiotics, blood pressure support, respiratory support and surgical evaluation. Time of 1ST Reevaluation: 00:42 Reevaluation 1ST: Improved Patient Education/Counseling: Diagnosis, Treatment, Need For Follow Up Family Education/Counseling: No Family Present Sepsis Sepsis Reasesment Focused Exam Sepsis focused exam: focus exam completed (Blood pressure 117 systolic, capillary refill less than 2 seconds, pain improved, other vitals stable), time: (0155) Departure 1 Departure Time of Disposition: 01:55 Impression: Primary Impression: Near syncope Additional Impressions: Perforated viscus Sepsis Qualified Codes: A41.9 - Sepsis, unspecified organism Disposition: ADMITTED INPATIENT Admit to: [facility] Condition: Guarded Critical Care Note Critical Care Time?: Yes (55 min-critical care time only) Critical care comment: Critical care time including multiple bedside re-evaluations, review of lab and imaging studies, and discussion of the case with the admitting and consulting providers. Patient is high risk for hemodynamic and/or respiratory decom pensation. Stability Stability form required: No Heart Score Heart Score: Heart Score Response (Comments) Value History Moderate Suspicious 1 EKG Repolarization Disturb 1 Age >65 2 Risk Factors >3 or Hx ASHD 2 Troponin Normal limit 0 Total 6 JOSÉ MIGUEL MENENDEZ MD January 15, 2025 00:43
[2025-01-15 01:04] LABS: Alkaline Phosphatase 76 U/L (46-116); Anion Gap 8 (5-15); BUN/Creatinine Ratio 17.6 (10.0-20.0); Blood Urea Nitrogen 18 mg/dL (9-23); Calcium 8.8 mg/dL (8.7-10.4); Carbon Dioxide 27 mmol/L (20-31); Chloride 103 mmol/L (98-107); Potassium 4.1 mmol/L (3.5-5.1); Sodium 138 mmol/L (136-145); Total Protein 6.4 g/dL (5.7-8.2)
[2025-01-15 01:06] LABS: Alanine Aminotransferase < 9 U/L (7-40); Aspartate Aminotransferase 12 U/L (13-40); Bilirubin, Total < 0.2 mg/dL (0.2-1.0); Glucose 210 mg/dL (74-106); Lipase 54 U/L (12-53)
[2025-01-15 01:12] LABS: Neutrophils # (auto) 6.7 10 ^3/uL (1.6-8.6)
[2025-01-15 01:13] LABS: Basophils % (auto) 1.4 % (0.0-2.0); Eosinophils # (auto) 0.1 10 ^3/uL (0-0.8); Eosinophils % (auto) 1.4 % (0.0-7.0); Hematocrit 33.9 % (41.0-53.0); Mean Corpuscular Hemoglobin 22.3 pg (28.0-32.0); Mean Corpuscular Hgb Conc. 29.6 g/dL (32.0-36.0); Mean Corpuscular Volume 75.4 fL (80.0-100.0); Monocytes # (auto) 0.7 10 ^3/uL (0-1.3); Neutrophils % (auto) 69.2 % (37.0-80.0); Nucleated Red Blood Cells % 0.5 %; Platelet Count (auto) 421 10^3/uL (140-450); White Blood Cell 9.7 10^3/uL (4.4-10.8)
[2025-01-15 01:18] LABS: Lactic Acid w/Reflex 2.6 mmol/L (0.4-2.0)
--- NOTE | 2025-01-15 01:19 | DVH ---
CHEST RADIOGRAPH Indication: cp Technique: Single frontal view of the chest was obtained Comparison: XY CHEST PORTABLE on DOS: 01/07/24, XY CHEST PORTABLE on DOS: 01/01/24 FINDINGS: Lines and Tubes: None Lungs: Clear Pleura: No effusion. No pneumothorax. Cardiomediastinal contours: Unremarkable Bones: Unremarkable IMPRESSION: Clear lungs.
[2025-01-15] MEDS: IPRATROPIUM BROM 0.5 MG/2.5ML INH SOL NEB ONE (01:39)
[2025-01-15] MEDS: ALBUTEROL SULF 2.5 MG/0.5ML(0.5%) NEB SOLN NEB ONE (01:39)
[2025-01-15] MEDS ORDERED: DOCUSATE SOD 100 MG CAP PO PRN (01:45)
[2025-01-15] MEDS: methylPREDNISolone SOD SUCC 125 MG/2 ML VL IV ONE (01:45)
[2025-01-15] MEDS ORDERED: NITROGLYCERIN 0.4 MG SL TAB SL PRN (01:45)
[2025-01-15] MEDS ORDERED: DEXTROSE (50%) 50ML SYRG IV PRN (01:45)
[2025-01-15] MEDS ORDERED: hydrALAZINE HCL 20 MG/ML VL IV PRN (01:45)
[2025-01-15] MEDS: PIPERACILLIN-TAZO 4.5GM 100 ML IV ONE (01:45)
--- NOTE | 2025-01-15 01:46 | DVHHP2 ---
History of Present Illness Reason for Visit: Generalized weakness History of Present Illness The patient is a 74-year-old male with past medical history of DM, AFib, hypertension, anemia, and hyperlipidemia who presented to [facility] ED with complaint of near syncopal episode. Patient reports having severe epigastric pain, radiating to the chest, mid, and lower abdomen, sharp in nature, associated shortness of breaths, nausea, getting worse that prompted this visit. Patient was seen and evaluated in the ED, laboratory data shows WBC 9.7, hemoglobin 10.0, hematocrit 33.9, platelets 421, sodium 138, potassium 4.1, BUN 18, creatinine 1.02, glucose 210, BNP 72.67, lipase 54, troponin 4, lactic acid 2.6, blood pressure 80/42 trending up to 117/47, heart rate 63, temperature 97.2 F, O2 saturation 92% on oxygen. Abdomen/pelvis CT revealing status post gastric bypass with 40 of free adjacent to the stomach concerning for perforation at the surgical incision sites from the bypass versus due to ulceration of the stomach; there is moderate amount of free air along the midline anterior abdomen adjacent to the transverse colon; critical findings pneumoperitoneum. Patient was started on on breathing treatment, given IV Solu- Medrol, please see medication orders section in the computer. On my assessment, patient denied chest pain, no headache, no dizziness, currently on oxygen, no diaphoresis, no nausea, no vomiting, no fever, no chills. Patient was admitted for further evaluation and medical management. Past Medical History AFIB, High Lipids, HTN, Anemia, DM Past Surgical History Gastric bypass, Right knee surgery, Cervical and lumbar laminectomies Family History Reviewed, noncontributory to the management of this case. Past Social History The patient lives at home, denies smoking, alcohol or illicit drugs abuse. Review of Systems Constitutional: Yes: Weakness; No: Fever, Chills, Sweats, Malaise, Other Eyes: No: Pain, Vision change, Conjunctivae inflammation, Eyelid inflammation, Other, Redness ENT: No: Ear pain, Ear discharge, Nose pain, Nose discharge, Nose congestion, Mouth pain, Mouth swelling, Throat pain, Throat swelling, Other Respiratory: Shortness of breath, Other (SOB at rest); No: Cough, Dry, SOB with excertion, Wheezing, Hemoptysis, Pleuritic Pain, Sputum, Wheezing Cardiovascular: Other (Near syncopal episode); No: Chest Pain, Palpitations, Orthopnea, Paroxysmal Noc. Dyspnea, Edema, Lt Headedness Gastrointestinal: Nausea; No: Vomiting, Abdominal Pain, Diarrhea, Constipation, Melena, Hematochezia, Other Genitourinary: No Dysuria, No Frequency, No Incontinence, No Hematuria, No Retention, No Other Musculoskeletal: No: other, neck pain, shoulder pain, arm pain, back pain, hand pain, leg pain, foot pain Skin: No: Rash, Lesions, Jaundice, Bruising, Other Neurological: No: Weakness, Numbness, Incoordination, Change in speech, Confusion, Seizures, Other Allergies: Coded Allergies: Statins (Verified Allergy, Severe, 01/01/24) Exam Vital Signs Vital Signs Date Time Temp Pulse Resp B/P (MAP) Pulse Ox O2 Delivery O2 Flow Rate FiO2 01/15/25 01:39 24 98 Nasal Cannula* 5 40 01/15/25 00:17 63 117/47 (70) 01/15/25 00:16 97.2 97.2 General Appearance: Alert, Oriented X3, Cooperative, No acute distress HEENT: Atraumatic, PERRLA, EOMI, Mucous membr. moist/pink Respiratory: Clear to auscultation, Normal air movement Cardiovascular: Regular rate, Normal S1, Normal S2, No murmurs Abdominal: Normal bowel sounds, Soft, No tenderness, No hepatospenomegaly, No masses Extremities: No clubbing, No cyanosis, No edema, Normal pulses, No tenderness/swelling Skin: No rashes, No breakdown, No significant lesion Neuro: Normal speech, Normal tone, Sensation intact, Cranial nerves 3-12 NL, Reflexes 2+, Other (Generalized weakness) Psych/Mental Status: Mental status NL, Mood NL Labs/Xrays Labs Test 01/15/25 01:28 01/15/25 00:28 Range/Units White Blood Count 9.7 4.4-10.8 10^3/uL Red Blood Count 4.50 4.5-5.90 10^6/uL Hemoglobin 10.0 L 13.5-17.5 g/dL Hematocrit 33.9 L 41.0-53.0 % Mean Corpuscular Volume 75.4 L 80.0-100.0 fL Mean Corpuscular Hemoglobin 22.3 L 28.0-32.0 pg Mean Corpuscular Hemoglobin Concent 29.6 L 32.0-36.0 g/dL Red Cell Distribution Width 18.0 H 11.8-14.3 % Platelet Count 421 140-450 10^3/uL Mean Platelet Volume 7.0 6.9-10.8 fL Neutrophils (%) (Auto) 69.2 37.0-80.0 % Lymphocytes (%) (Auto) 21.0 10.0-50.0 % Monocytes (%) (Auto) 7.0 0.0-12.0 % Eosinophils (%) (Auto) 1.4 0.0-7.0 % Basophils (%) (Auto) 1.4 0.0-2.0 % Neutrophils # (Auto) 6.7 1.6-8.6 10 ^3/uL Lymphocytes # (Auto) 2.0 0.4-5.4 10 ^3/uL Monocytes # (Auto) 0.7 0-1.3 10 ^3/uL Eosinophils # (Auto) 0.1 0-0.8 10 ^3/uL Basophils # (Auto) 0.1 0-0.2 10 ^3/uL Nucleated Red Blood Cells 0.5 % Sodium Level 138 136-145 mmol/L Potassium Level 4.1 3.5-5.1 mmol/L Chloride Level 103 98-107 mmol/L Carbon Dioxide Level 27 20-31 mmol/L Anion Gap 8 5-15 Blood Urea Nitrogen 18 9-23 mg/dL Creatinine 1.02 0.700-1.30 mg/dL Glomerular Filtration Rate Calc 77 >90 mL/min BUN/Creatinine Ratio 17.6 10.0-20.0 Serum Glucose 210 H 74-106 mg/dL Lactic Acid Level 2.6 *H 0.4-2.0 mmol/L Calcium Level 8.8 8.7-10.4 mg/dL Total Bilirubin < 0.2 L 0.2-1.0 mg/dL Aspartate Amino Transferase (AST) 12 L 13-40 U/L Alanine Aminotransferase (ALT) < 9 7-40 U/L Alkaline Phosphatase 76 46-116 U/L B-Type Natriuretic Peptide 72.67 0-100 pg/mL Total Protein 6.4 5.7-8.2 g/dL Albumin 4.0 3.2-4.8 g/dL Lipase 54 H 12-53 U/L PATIENT: LYLE LOPES ACCT: [id number] UNIT: [id number] : 1950 LOC: ER ROOM / BED: / AGE / SEX: 74 / M ADM STATUS: REG ER SERVICE 0010 ORDERING PHYSICIAN: JOSÉ MIGUEL MENENDEZ MD PROCEDURE(s): CXRP - CHEST PORTABLE REASON: cp ORDER NUMBER(s): [id number], ACCESSION NUMBER(s): [id number] CHEST RADIOGRAPH Indication: cp Technique: Single frontal view of the chest was obtained Comparison: XY CHEST PORTABLE on DOS: 01/07/24, XY CHEST PORTABLE on DOS: 01/01/24 FINDINGS: Lines and Tubes: None Lungs: Clear Pleura: No effusion. No pneumothorax. Cardiomediastinal contours: Unremarkable Bones: Unremarkable IMPRESSION: Clear lungs. ORDERING PHYSICIAN: JOSÉ MIGUEL MENENDEZ MD PROCEDURE(s): ABPL - CT AB PEL WO CON-NO ORAL OR IV REASON: abd pain near syncope hypotension ORDER NUMBER(s): [id number], ACCESSION NUMBER(s): [id number] Exam: CT CT AB PEL WO CON-NO ORAL OR IV History: abd pain near syncope hypotension Comparison Study: None Technique: Multidetector spiral CT of the abdomen was performed from lung bases to pubic symphysis. Imaging was performed without IV contrast. Axial, coronal and sagittal multiplanar reformats were obtained from the axial data set by the technologist. Radiation Dose: 1. Abdomen/Pelvis: CTDIvol 25 mGy, DLP 1596 mGy*cm. Findings: Evaluation of solid organs is limited due to lack of intravenous contrast use. Lung Bases: No acute or significant lung base finding. Normal heart size. No pleural or pericardial effusion. Liver: The liver is normal in size. No focal lesions. Gallbladder and Biliary Tree: Gallbladder is surgically absent. Spleen: Unremarkable Pancreas: The pancreas is grossly normal in appearance. Adrenal Glands: Unremarkable Kidneys: Kidneys are grossly normal without calculi or hydronephrosis. Large left renal cystic lesion measuring 10 cm. Bilateral perinephric fat stranding. The large left renal cystic lesion can be further evaluated with ultrasound if clinically indicated. Bladder: Grossly unremarkable for degree of distention. Bowel: Status post gastric bypass with foci of air seen scattered adjacent to the distal stomach. Moderate amount of free air seen along the midline anterior abdomen. Fecal retention throughout the colon. Ascites: Trace perisplenic ascites. Lymphadenopathy: No mesenteric, retroperitoneal or periportal lymphadenopathy. Abdominal Wall and Mesentery: Unremarkable. Vasculature: The visualized abdominal aorta is normal in size and caliber. Evaluation of abdominal and pelvic vessels is limited due to lack of intravenous contrast. Pelvic Organs: Unremarkable Musculoskeletal: No aggressive focal bony lesions, acute fractures or dislocation. IMPRESSION: Status post gastric bypass with foci of free air adjacent to the stomach concerning for perforation at the surgical incision sites from the bypass versus due to ulceration of the stomach. There is moderate amount of free air along the midline anterior abdomen adjacent to the transverse colon. Critical findings Critical Result: Pneumoperitoneum Assessment/Plan Assessment/Plan Generalized weakness Near syncope Perforated viscus Sepsis, unspecified organisms Acute respiratory distress Diabetes mellitus with hyperglycemia Plan 1. Admit to telemetry unit 2. Breathing treatment 3. Pain control management 4. IV antibiotic management 5. Management of fluids and electrolytes 6. Consultation for hospitalist 7. Diagnostic test chest x-ray 8. DVT prophylaxis-on Coumadin 9. Repeat labs CBC, CMP in a.m. 10. Home medication reviewed and reconciled 11. Continue with current medical management 12. Treatment plan discussed with patient and RN. Patient verbalized understanding. Plan discussed with: Patient, Other (RN) My Orders Orders - DAMARIS LOGAN DNP Procedure Category Date Status Time Complete Blood Count LAB 01/15/25 Transmitted 04:00 Comprehensive LAB 01/15/25 Transmitted Metabolic Panel 04:00 Warfarin Per Rx PHA 01/15/25 Transmitted Protocol (Coumadin 01:45 Consistent DIET 01/15/25 Transmitted Carb(Ccho)Diabetes Breakfast Albuterol Medneb PHA 01/15/25 Transmitted (Ventolin Medneb) 01:45 Ipratropium Medneb PHA 01/15/25 Transmitted (Atrovent Medneb) 01:45 Hydralazine Injection PHA 01/15/25 Transmitted (Apresoline Inject 01:45 Famotidine Injection PHA 01/15/25 Transmitted (Pepcid Injection) 10:00 Methylprednisolone PHA 01/15/25 Transmitted Sod Succ (Solu Medrol 10:00 Glucose Blood PHA 01/15/25 Transmitted (Accu-Chek Comfort 07:00 Bedtime Insulin Scale PHA 01/15/25 Transmitted 22:00 Moderate Insulin Ss PHA 01/15/25 Transmitted 07:00 Dextrose 50% Syringe PHA 01/15/25 Transmitted 01:45 Admit ADMIT 01/15/25 Transmitted 01:37 Allergies [facility] 01/15/25 Transmitted 01:37 Code Status CODE 01/15/25 Transmitted 01:37 0.9% Ns 1000 Ml PHA 01/15/25 Transmitted 01:45 Oxygen Per Hour RT 01/15/25 Transmitted 01:37 Hydrocodone-Acet PHA 01/15/25 Transmitted 5/325mg Tab ([place] 01:45 Ondansetron Hcl [facility] 01/15/25 Transmitted (Zofran) 01:45 Docusate Sodium [facility] 01/15/25 Transmitted Capsule (Colace 01:45 Fall Risk Precautions [facility] 01/15/[address] 01:37 Complete Blood Count LAB 01/16/25 Verified 04:00 Comprehensive LAB 01/16/25 Verified Metabolic Panel 04:00 Condition: Serious [facility] 01/15/25 Transmitted 01:37 Acetaminophen Tablet [facility] 01/15/25 Transmitted (Tylenol Tablet) 01:45 Maintain Bed Rest [facility] 01/15/25 Transmitted 01:37 Sequential [facility] 01/15/25 Transmitted Compression Device Nitroglycerin [facility] 01/15/25 Transmitted Sublingual (Ntrostat 01:45 Morphine Sulfate PHA 01/15/25 Transmitted Injection 01:45 Stat Ekg For Chest [facility] 01/15/25 Transmitted Pain 01:37 Notify Md Of Changes [facility] 01/15/25 Transmitted From Base 01:37 Oil Pipe Inspector Helper For [facility] 01/15/25 Transmitted 24 Hours 01:37 Emergency Dysrhythmia [facility] 01/15/25 Transmitted Protocol 01:37 Rhythm Strips Once [facility] 01/15/25 Transmitted Every Shift 01:37 Oxygen By Nasal RT 01/15/25 Transmitted Cannula 01:37 Problem List: (1) Generalized weakness (2) Near syncope (3) Perforated viscus (4) Sepsis, unspecified organism (5) Acute respiratory distress (6) Diabetes mellitus with hyperglycemia Date of Service: January 15, 2025 Billing Provider: DAMARIS LOGAN DNP Common Visit Codes: [id number] INP/OBS CARE (HIGH) DAMARIS LOGAN DNP January 15, 2025 01:46
--- NOTE | 2025-01-15 01:49 | DVH ---
Exam: CT CT AB PEL WO CON-NO ORAL OR IV History: abd pain near syncope hypotension Comparison Study: None Technique: Multidetector spiral CT of the abdomen was performed from lung bases to pubic symphysis. I maging was performed without IV contrast. Axial, coronal and sagittal multiplanar reformats were obta ined from the axial data set by the technologist. Radiation Dose : 1. Abdomen/Pelvis: CTDIvol 25 mGy, DLP 1596 mGy*cm. Findings: Evaluation of solid organs is limited due to lack of intravenous contrast use. Lung Bases: No acute or significant lung base finding. Normal heart size. No pleural or pericardial effusion. Liver: The liver is normal in size. No focal lesions. Gallbladder and Biliary Tree: Gallbladder is surgically absent. Spleen: Unremarkable Pancreas: The pancreas is grossly normal in appearance. Adrenal Glands: Unremarkable Kidneys: Kidneys are grossly normal without calculi or hydronephrosis. Large left renal cystic lesion measuring 10 cm. Bilateral perinephric fat stranding. The large left renal cystic lesion can be furt her evaluated with ultrasound if clinically indicated. Bladder: Grossly unremarkable for degree of distention. Bowel: Status post gastric bypass with foci of air seen scattered adjacent to the distal stomach. Mo derate amount of free air seen along the midline anterior abdomen. Fecal retention throughout the col on. Ascites: Trace perisplenic ascites. Lymphadenopathy: No mesenteric, retroperitoneal or periportal lymphadenopathy. Abdominal Wall and Mesentery: Unremarkable. Vasculature: The visualized abdominal aorta is normal in size and caliber. Evaluation of abdominal a nd pelvic vessels is limited due to lack of intravenous contrast. Pelvic Organs: Unremarkable Musculoskeletal: No aggressive focal bony lesions, acute fractures or dislocation. IMPRESSION: Status post gastric bypass with foci of free air adjacent to the stomach concerning for perforation a t the surgical incision sites from the bypass versus due to ulceration of the stomach. There is moder ate amount of free air along the midline anterior abdomen adjacent to the transverse colon. Critical findings Critical Result: Pneumoperitoneum Findings discussed with JOSÉ MIGUEL MENENDEZ at 01/15/2025 01:46 AM, and acknowledged receipt and understanding of the findings.
[2025-01-15 02:01] LABS: Urine Bacteria None Seen /hpf (None Seen)
[2025-01-15 02:27] LABS: Urine Blood Negative /uL (Negative); Urine Clarity Clear (Clear); Urine Color Light-Yellow (Yellow); Urine Protein, UAD Negative (Negative); Urine Specific Gravity 1.018 (1.001-1.035); Urine Squamous Epithelial Cell None Seen /hpf (<5); Urine Urobilinogen Normal (Negative)
[2025-01-15] MEDS: VANCOMYCIN 1GM/200ML PM 200 ML IV ONE (02:54)
[2025-01-15] MEDS: SODIUM CHLORIDE 0.9% 1,000 ML IV SCH ×3 (02:55→15:02)
[2025-01-15] MEDS: HYDROcodone-ACET 5/325MG TAB PO PRN (02:57)
[2025-01-15 03:14] LABS: INR 1.31 (0.9-1.15); Partial Thromboplastin Time 31.9 SEC (24.5-34.5); Prothrombin Time 13.5 sec (9.3-11.8)
--- NOTE | 2025-01-15 03:40 | DVHINCON2 ---
Date of service: January 15, 2025 History of Present Illness 74-year-old male with a history of laparoscopic gastric bypass surgery years ago complaining of severe epigastric abdominal pain radiating to his lower quadrants that began yesterday. Patient also reports nausea but no vomiting. Reports some chills. Past Medical History Morbid obesity. Atrial fibrillation. Hypertension. DM. Past Surgical History Laparoscopic Jd-en-Y gastric bypass surgery. Laparoscopic cholecystectomy. Right knee surgery. Cervical laminectomy. Family History: Hypertension G8 FATHER Family History Noncontributory Social History Quit tobacco 10 years ago. Heavy alcohol use in the past but currently denies any alcohol. Denies any IV drug use. Allergies: Coded Allergies: Statins (Verified Allergy, Severe, 01/01/24) Home Meds Reported Medications Cetirizine Hcl (Kls Aller-Renetta) 10 Mg Tab, 1 TAB PO DAILY, #30 TAB 3 Refills 01/11/24 Omeprazole (Gnp Omeprazole) 20 Mg Tab, 1 TAB PO BID, #90 TAB 1 Refill 01/11/24 Polyethylene Glycol 3350 (Polyethylene Glycol) 17 Gm/Scoop Pow, 17 GM PO DAILY, POW 01/11/24 Warfarin Sodium (Warfarin Sodium) 5 Mg Tab, 15 MG PO MWFSa for 30 Days, MG 01/02/24 Diltiazem Hcl (Cardizem La) 120 Mg Tab, 1 01/01/24 Hctz (Hydrochlorothiazide) 25 Mg Tab, 1 TAB PO DAILY 01/01/24 Lisinopril (Lisinopril) 40 Mg Tab, 1 TAB PO DAILY 01/01/24 Warfarin Sodium (Warfarin Sodium) 10 Mg Tab, 1 TAB PO TUE,BROOKE,Thu01/01/24 Tramadol Hcl (Tramadol Hcl) 50 Mg Tab, 1 TAB PO BIDPRN PRN 01/01/24 Cyclobenzaprine HCl (Cyclobenzaprine Hydrochlo) 5 Mg Tab, 1 TAB PO BID 01/01/24 Gabapentin (Gabapentin) 300 Mg Cap, 3 CAP PO TID 01/01/24 Metoprolol Succinate (Metoprolol Succinate Er) 100 Mg Tab, 1 TAB PO DAILY 01/01/24 Metformin Hydrochloride (Metformin Hcl) 1,000 Mg Tab, 1 TAB PO BID 01/01/24 Oxycodone Hcl (OXYCODONE HCL) 5 Mg Tb, 1 TAB PO TID PRN 01/01/24 Current Medications Current Medications Medications (Trade) Dose Ordered Sig/Vincent Route PRN Reason Start Time Stop Time Status Last Admin Warfarin Sodium (Coumadin Per Rx Protocol) RX PROTOCOL PER PHARMACY PO 01/15/25 01:45 UNV Albuterol (Ventolin Medneb) 2.5 mg Q4HPRN PRN NEB SHORTNESS OF BREATH 01/15/25 01:45 Ipratropium [place] (Atrovent Medneb) 0.5 mg Q4HPRN PRN NEB SHORTNESS OF BREATH 01/15/25 01:45 Hydralazine HCl (Apresoline Injection) 10 mg Q6HP PRN IV SBP>150 01/15/25 01:45 Famotidine (Pepcid Injection) 20 mg Q12HR IV 01/15/25 10:00 Methylprednisolone Sodium Succinate (Solu Medrol) 40 mg BID IV 01/15/25 10:00 Diagnostic Test (Pha) (Accu-Chek Comfort Curve T) 1 strip ACHS 01/15/25 07:00 Insulin Human Regular (InsuLIN R) HS SC 01/15/25 22:00 Insulin Human Regular (InsuLIN R) AC SC 01/15/25 07:00 Dextrose 50 ml UD PRN IV Blood Sugar LESS THAN 60 01/15/25 01:45 Sodium Chloride 1,000 ml @ 60 mls/hr [id number] IV 01/15/25 01:45 01/15/25 03:18 DC 01/15/25 02:55 Acetaminophen/ Hydrocodone Bitart ([place] 5/325MG Tab) 1 tab Q4HP PRN PO MODERATE PAIN (4-6 PAIN SCALE) 01/15/25 01:45 01/15/25 02:57 Ondansetron HCl (Zofran) 4 mg Q4HP PRN IV NAUSEA / VOMITING 01/15/25 01:45 Docusate Sodium (Colace Capsule) 100 mg BIDPRN PRN PO FOR CONSTIPATION 01/15/25 01:45 Acetaminophen (Tylenol Tablet) 650 mg Q6HP PRN PO PAIN SCALE 1-3 OR TEMP>100.4 01/15/25 01:45 Nitroglycerin (Ntrostat Sublingual) 0.4 mg Q5MINP PRN SL FOR CHEST PAIN 01/15/25 01:45 Morphine Sulfate 2 mg Q30M PRN IV FOR CHEST PAIN 01/15/25 01:45 Piperacillin Sod/ Tazobactam Sod 100 ml @ 25 mls/hr Q8HR IV 01/15/25 06:00 Pantoprazole Sodium (Protonix) 40 mg BID IV 01/15/25 10:00 UNV Sodium Chloride 1,000 ml @ 150 mls/hr Q6H40M IV 01/15/25 03:30 01/15/25 03:31 Vital Signs Vital Signs Date Time Temp Pulse Resp B/P (MAP) Pulse Ox O2 Delivery O2 Flow Rate FiO2 01/15/25 03:29 66 16 96 Nasal Cannula* 5 40 01/15/25 03:27 103/43 (63) 01/15/25 01:55 97.2 97.2 Physical Exam GEN: Obese male in no acute distress. Alert. HEENT: Normocephalic atraumatic. Moist mucous membranes. Anicteric sclerae. CV: RRR Respiratory: CTAB ABD: Obese abdomen with diffuse tenderness to palpation with guarding. Nondistended. CT of the abdomen and pelvis: Status post gastric bypass with foci of free air dressing to stomach concerning for perforation. Moderate amount of free air along the midline anterior abdomen adjacent to transverse colon. Labs/Diagnostic Data Labs Test 01/15/25 03:32 01/15/25 02:40 01/15/25 01:59 01/15/25 01:28 Range/Units Lactic Acid Level 2.7 *H 0.4-2.0 mmol/L Urine Color Light-yellow Yellow Urine Clarity Clear Clear Urine pH 6.0 5.0-9.0 Urine Specific [place] 1.018 1.001-1.035 Urine Protein Negative Negative Urine Ketones Negative Negative Urine Blood Negative Negative /uL Urine Nitrite Negative Negative Urine Bilirubin Negative Negative Urine Urobilinogen Normal Negative mg/dL Urine Leukocyte Esterase Negative Negative /uL Urine RBC <1 0 - 3 /hpf Urine Microscopic WBC 0-3 /HPF Urine Squamous Epithelial Cells None seen <5 /hpf Urine Bacteria None seen None Seen /hpf Urine Glucose 4+ H Normal mg/dL Troponin I High Sensitivity 4 </=54 ng/L Test 01/15/25 00:28 Range/Units Eosinophils (%) (Auto) 1.4 0.0-7.0 % Eosinophils # (Auto) 0.1 0-0.8 10 ^3/uL Basophils # (Auto) 0.1 0-0.2 10 ^3/uL Nucleated Red Blood Cells 0.5 % Prothrombin Time 13.5 H 9.3-11.8 sec Prothrombin Time INR 1.31 H 0.9-1.15 Activated Partial Thromboplast Time 31.9 24.5-34.5 SEC B-Type Natriuretic Peptide 72.67 0-100 pg/mL Lipase 54 H 12-53 U/L Assessment 1. Perforated viscus with small to moderate amount of pneumoperitoneum but clinically stable currently. Plan/Recommendation 1. NG tube to low intermittent suction. 2. Fluid resuscitation and broad-spectrum IV antibiotics. 3. We will observe the patient closely with conservative treatment at this time. If his clinical situation worsens, patient will need surgical exploration. Informed consent: The surgery and its risks including but not limited to infection, bleeding requiring possible blood transfusion with the risk of hepatitis or HIV infection, possible perioperative DC or stroke and possible were explained to the patient and his uncle. All questions were answered to the patient's satisfaction. He expressed verbal understanding and agreed to the surgery if necessary. Plan discussed with: Patient JACKLYN OLMEDO MD January 15, 2025 03:40
[2025-01-15 04:00] LABS: Albumin 3.7 g/dL (3.2-4.8); Alkaline Phosphatase 70 U/L (46-116); Anion Gap 12 (5-15); Aspartate Aminotransferase 16 U/L (13-40); BUN/Creatinine Ratio 14.6 (10.0-20.0); Blood Urea Nitrogen 14 mg/dL (9-23); Chloride 107 mmol/L (98-107); Potassium 4.2 mmol/L (3.5-5.1); Sodium 138 mmol/L (136-145); Total Protein 6.2 g/dL (5.7-8.2)
[2025-01-15 04:01] LABS: Alanine Aminotransferase < 9 U/L (7-40); Bilirubin, Total 0.2 mg/dL (0.2-1.0); Calcium 8.5 mg/dL (8.7-10.4); Carbon Dioxide 19 mmol/L (20-31); Glucose 223 mg/dL (74-106)
[2025-01-15] MEDS ORDERED: FLUT1AER3 IN (05:23)
[2025-01-15] MEDS ORDERED: EMPA1TAB PO (05:23)
[2025-01-15] MEDS ORDERED: CHLO12TA PO (05:23)
[2025-01-15] MEDS ORDERED: RIV20T PO (05:23)
[2025-01-15] MEDS: PIPERACILLIN-TAZOB 3.375GM 100 ML IV SCH (06:07)
[2025-01-15] MEDS: ACCU-CHEK COMFORT CURVE STRIP VI SCH (06:14)
[2025-01-15] MEDS: InsuLIN REG 1unit/0.01ml Soln (100units/ml) SC SCH ×2 (06:51→22:00)
[2025-01-15] MEDS: methylPREDNISolone SOD SUCC 40 MG/ML VL IV SCH (09:45)
[2025-01-15] MEDS: PANTOPRAZOLE 40 MG/10 ML VIAL INJ IV SCH (09:45)
[2025-01-15] MEDS: MORPHINE SULFATE INJ 2 MG/ml SYRG IV PRN (09:46)
--- NOTE | 2025-01-15 09:53 | DVH ---
CHEST RADIOGRAPH Indication: ng tube placement Technique: Single frontal view of the chest was obtained COMPARISON: None FINDINGS: The nasogastric tube projects towards the stomach. Low lung volumes. Aortic atherosclerotic disease. The cardiac silhouette is enlarged. The lungs demonstrate bilateral patchy airspace opacities. The pu lmonary vasculature is prominent. Small bilateral pleural effusions. There is no pneumothorax. IMPRESSION: 1. Cardiomegaly with pulmonary vascular congestion and bilateral patchy airspace opacities. 2. Small bilateral pleural effusions
[2025-01-15] MEDS ORDERED: FAMOTIDINE (10MG/ML) 2ML VL IV SCH (10:00)
[2025-01-15 10:09] LABS: Basophils # (auto) 0 10 ^3/uL (0-0.2); Eosinophils # (auto) 0 10 ^3/uL (0-0.8); Hemoglobin 10.7 g/dL (13.5-17.5); Monocytes # (auto) 0.3 10 ^3/uL (0-1.3); Neutrophils # (auto) 6.7 10 ^3/uL (1.6-8.6); White Blood Cell 7.4 10^3/uL (4.4-10.8)
[2025-01-15 10:10] LABS: Lymphocytes # (auto) 0.4 10 ^3/uL (0.4-5.4); Lymphocytes % (auto) 5.3 % (10.0-50.0); Mean Corpuscular Hgb Conc. 28.9 g/dL (32.0-36.0); Mean Corpuscular Volume 76.2 fL (80.0-100.0); Monocytes % (auto) 4.4 % (0.0-12.0); Neutrophils % (auto) 90.3 % (37.0-80.0); Platelet Count (auto) 373 10^3/uL (140-450); Red Blood Cells 4.85 10^6/uL (4.5-5.90); Red Cell Distribution Width 18.2 % (11.8-14.3)
--- NOTE | 2025-01-15 13:51 | DVHPN2 ---
Subjective Update 01/15 Patient continues to have abdominal pain, epigastrium, not passing any bowel movements or gas yet. Diaphoretic code,. Feeling presyncopal. Nausea continues. NG tube inserted today. Suctioned started. Surgery following Reviewed: H&P Changes from previous H/P or p: No Changes General: Per HPI Eyes: No Pain, No Vision change, No Conjunctivae inflammation, No Eyelid inflammation, No Other, No Redness ENT: No Ear pain, No Ear discharge, No Nose pain, No Nose discharge, No Nose congestion, No Mouth pain, No Mouth swelling, No Throat pain, No Throat swelling, No Other Cardiovascular: No Chest Pain, No Palpitations, No Orthopnea, No Paroxysmal Noc. Dyspnea, No Edema, No Lt Headedness; Other (Near syncopal episode) Respiratory: No Cough, No Dry; Shortness of breath; No SOB with excertion, No Wheezing, No Hemoptysis, No Pleuritic Pain, No Sputum; Other (SOB at rest) Gastrointestinal: Nausea; No Vomiting, No Abdominal Pain, No Diarrhea, No Constipation, No Melena, No Hematochezia, No Other Genitourinary: No Dysuria, No Frequency, No Incontinence, No Hematuria, No Retention, No Other Musculoskeletal: No other, No neck pain, No shoulder pain, No arm pain, No back pain, No hand pain, No leg pain, No foot pain Skin: No Rash, No Lesions, No Jaundice, No Bruising, No Other Objective Vitals Vital Signs Date Time Temp Pulse Resp B/P (MAP) Pulse Ox O2 Delivery O2 Flow Rate FiO2 01/15/25 09:46 95 18 108/66 01/15/25 09:00 97.2 98 97.2 01/15/25 07:05 Nasal Cannula 5.0 01/15/25 07:05 40 Intake/Output Intake and Output 01/15/25 07:00 Intake Total 3100 ml Output Total 500 ml Balance 2600 ml Intake Oral 0 ml IV Total 3100 ml Output Urine Total 500 ml Exam GEN: Healthy appearing, well-developed, appears in mild acute discomfort, diaphoresis HEENT: NC/AT; MMM. CV: RRR, no m/r/g. LUNGS: CTAB, no w/r/c. ABD: Tender to palpation generalized throughout abdomen, more localized to epigastrium, high-pitched bowel sounds. NG tube inserted with yellow-green bilious output. EXT: skin Warm, well perfused. no rashes. No clubbing, cyanosis, or edema. NEURO: Ambulating with no limitations. No focal deficits. Medications Current Medications Medications Dose Ordered Sig/Vincent Route Start Time Stop Time Status Last Admin Dose Admin Warfarin Sodium RX PROTOCOL PER PHARMACY PO 01/15/25 01:45 UNV Albuterol 2.5 mg Q4HPRN PRN NEB 01/15/25 01:45 Ipratropium [place] 0.5 mg Q4HPRN PRN NEB 01/15/25 01:45 Hydralazine HCl 10 mg Q6HP PRN IV 01/15/25 01:45 Methylprednisolone Sodium Succinate 40 mg BID IV 01/15/25 10:00 01/15/25 09:45 40 MG Diagnostic Test (Pha) 1 strip ACHS 01/15/25 07:00 01/15/25 11:30 1 STRIP Insulin Human Regular HS SC 01/15/25 22:00 Insulin Human Regular AC SC 01/15/25 07:00 Dextrose 50 ml UD PRN IV 01/15/25 01:45 Acetaminophen/ Hydrocodone Bitart 1 tab Q4HP PRN PO 01/15/25 01:45 Hold 01/15/25 02:57 1 TAB Ondansetron HCl 4 mg Q4HP PRN IV 01/15/25 01:45 Docusate Sodium 100 mg BIDPRN PRN PO 01/15/25 01:45 Acetaminophen 650 mg Q6HP PRN PO 01/15/25 01:45 Nitroglycerin 0.4 mg Q5MINP PRN SL 01/15/25 01:45 Morphine Sulfate 2 mg Q30M PRN IV 01/15/25 01:45 Piperacillin Sod/ Tazobactam Sod 100 ml @ 25 mls/hr Q8HR IV 01/15/25 06:00 01/15/25 06:07 25 MLS/HR Pantoprazole Sodium 40 mg BID IV 01/15/25 10:00 01/15/25 09:45 40 MG Sodium Chloride 1,000 ml @ 150 mls/hr Q6H40M IV 01/15/25 03:30 01/15/25 06:04 150 MLS/HR Morphine Sulfate 2 mg Q4HPRN PRN IV 01/15/25 09:15 5/18/25 09:46 2 MG Morphine Sulfate 4 mg Q4HPRN PRN IV 01/15/25 09:15 Laboratory Results Laboratory Tests 01/15/25 03:32 01/15/25 09:50 Chemistry Test 01/15/25 00:28 01/15/25 03:32 Albumin 4.0 g/dL (3.2-4.8) 3.7 g/dL (3.2-4.8) Calcium Level 8.8 mg/dL (8.7-10.4) 8.5 mg/dL (8.7-10.4) L Total Protein 6.4 g/dL (5.7-8.2) 6.2 g/dL (5.7-8.2) Coagulation Test 01/15/25 00:28 Prothrombin Time 13.5 sec (9.3-11.8) H Prothrombin Time INR 1.31 (0.9-1.15) H Activated Partial Thromboplast Time 31.9 SEC (24.5-34.5) Lipid panel Test 01/15/25 00:28 Lipase 54 U/L (12-53) H Cardiac Markers Test 01/15/25 00:28 B-Type Natriuretic Peptide 72.67 pg/mL (0-100) LFT Test 01/15/25 00:28 01/15/25 03:32 Alanine Aminotransferase (ALT) < 9 U/L (7-40) < 9 U/L (7-40) Alkaline Phosphatase 76 U/L (46-116) 70 U/L (46-116) Aspartate Amino Transferase (AST) 12 U/L (13-40) L 16 U/L (13-40) Total Bilirubin < 0.2 mg/dL (0.2-1.0) L 0.2 mg/dL (0.2-1.0) Urinalysis Test 01/15/25 01:59 Urine Color Light-yellow (Yellow) Urine Clarity Clear (Clear) Urine pH 6.0 (5.0-9.0) Urine Specific Petty 1.018 (1.001-1.035) Urine Protein Negative (Negative) Urine Ketones Negative (Negative) Urine Blood Negative /uL (Negative) Urine Nitrite Negative (Negative) Urine Bilirubin Negative (Negative) Urine Urobilinogen Normal mg/dL (Negative) Urine Leukocyte Esterase Negative /uL (Negative) Urine RBC <1 /hpf (0 - 3) Urine Microscopic WBC /HPF (0-3) Urine Squamous Epithelial Cells None seen /hpf (<5) Urine Bacteria None seen /hpf (None Seen) Urine Glucose 4+ mg/dL (Normal) H Labs and/or images reviewed: Labs reviewed by me, Image(s) reviewed by me Assessment/Plan Assessment/Plan 01/15 patient with history of gastric bypass, presenting with near syncopal episode, severe epigastric pain radiating to chest lower abdomen. Shortness of breath with nausea. CT abdomen showing possible free air around stomach confirmed for perforation and also free air along transverse colon critical finding of pneumoperitoneum. Patient was given breathing treatments and IV Solu-Medrol in the ED. Surgery consulted and doing conservative management and observation. Near syncope likely due to below Acute epigastric abdominal pain, intractable Perforated viscus and pneumoperitoneum, with history of gastric bypass Lactic acidosis, resolved Sepsis due to above Acute respiratory distress Diabetes with hyperglycemia AFib on Coumadin Tachypnea Lipase elevated, mild Antibiotics Zosyn Solu-Medrol for breathing, Solu-Medrol 40 IV b.i.d. Protonix 40 IV b.i.d. IV fluids 100 cc/hour NPO Surgery consult and follow up appreciated Blood cultures pending Sliding scale insulin moderate a.c. HS DVT prophylaxis GI prophylaxis Full code Plan discussed with: Patient Date of Service: January 15, 2025 Billing Provider: POOJA BUSTOS MD Common Visit Codes: [id number] INP/OBS CARE(HIGH) POOJA BUSTOS MD January 15, 2025 13:51
--- NOTE | 2025-01-15 14:43 | DVHPN2 ---
Progress Note - Dictate Date Seen: January 15, 2025 Medical Necessity Reason Pt with a Central, PICC or Fol: No Subjective E: NGT was just placed. c/o abd pain unchanged from yesterday. vital signs Vital Sign Date Time Temp Pulse Resp B/P (MAP) Pulse Ox O2 Delivery O2 Flow Rate FiO2 01/15/25 09:46 95 18 108/66 01/15/25 09:00 97.2 98 97.2 01/15/25 07:05 Nasal Cannula 5.0 01/15/25 07:05 40 Total Intake and Output 01/14/25 01/14/25 01/15/25 15:00 23:00 07:00 Intake Total 3100 ml Output Total 500 ml Balance 2600 ml medications Current Medications Medications Dose Ordered Sig/Vincent Route Start Time Stop Time Status Last Admin Dose Admin Warfarin Sodium RX PROTOCOL PER PHARMACY PO 01/15/25 01:45 UNV Albuterol 2.5 mg Q4HPRN PRN NEB 01/15/25 01:45 Ipratropium [place] 0.5 mg Q4HPRN PRN NEB 01/15/25 01:45 Hydralazine HCl 10 mg Q6HP PRN IV 01/15/25 01:45 Methylprednisolone Sodium Succinate 40 mg BID IV 01/15/25 10:00 01/15/25 09:45 40 MG Diagnostic Test (Pha) 1 strip ACHS 01/15/25 07:00 01/15/25 11:30 1 STRIP Insulin Human Regular HS SC 01/15/25 22:00 Insulin Human Regular AC SC 01/15/25 07:00 Dextrose 50 ml UD PRN IV 01/15/25 01:45 Acetaminophen/ Hydrocodone Bitart 1 tab Q4HP PRN PO 01/15/25 01:45 Hold 01/15/25 02:57 1 TAB Ondansetron HCl 4 mg Q4HP PRN IV 01/15/25 01:45 Docusate Sodium 100 mg BIDPRN PRN PO 01/15/25 01:45 Acetaminophen 650 mg Q6HP PRN PO 01/15/25 01:45 Nitroglycerin 0.4 mg Q5MINP PRN SL 01/15/25 01:45 Morphine Sulfate 2 mg Q30M PRN IV 01/15/25 01:45 Piperacillin Sod/ Tazobactam Sod 100 ml @ 25 mls/hr Q8HR IV 01/15/25 06:00 01/15/25 14:37 25 MLS/HR Pantoprazole Sodium 40 mg BID IV 01/15/25 10:00 01/15/25 09:45 40 MG Morphine Sulfate 2 mg Q4HPRN PRN IV 01/15/25 09:15 01/15/25 09:46 2 MG Morphine Sulfate 4 mg Q4HPRN PRN IV 01/15/25 09:15 Sodium Chloride 1,000 ml @ 100 mls/hr Q10H IV 01/15/25 14:45 UNV objective GEN: NAD ABD: diffuse TTP with guarding. laboratory and microbiology Laboratory Tests 01/15/25 09:50 01/15/25 03:32 Test 01/15/25 03:32 Range/Units Serum Glucose 223 H 74-106 mg/dL Assessment/Plan A: 1. Perforated viscus with small to moderate amount of pneumoperitoneum but clinically stable currently. P: 1. cont conservative tx with NGT decompression and abx. 2. cardiac clearance 3. repeat CT in AM. if it shows worsening pneumoperitoneum, will schedule for ex lap tomorrow. Plan discussed with: Patient JACKLYN OLMEDO MD January 15, 2025 14:43
[2025-01-15] MEDS: ENOXAPARIN SOD 40 MG/0.4 ML SYRINGE SC ONE (17:44)
[2025-01-16] VITALS (11 sets, daily range): BP systolic 115–147; BP diastolic 55–81; PULSE 101–110; RESP 16–19; TEMP 97.4–98.3; O2SAT 92–98
[2025-01-16] MEDS: ONDANSETRON HCL 4 MG/2 ML VIAL IV PRN (02:38)
[2025-01-16] MEDS: MORPHINE SULFATE INJ 2 MG/ml SYRG IV PRN (06:41)
[2025-01-16 07:41] LABS: Basophils # (auto) 0 10 ^3/uL (0-0.2); Basophils % (auto) 0.1 % (0.0-2.0); Eosinophils # (auto) 0 10 ^3/uL (0-0.8); Hematocrit 42.1 % (41.0-53.0); Hemoglobin 11.6 g/dL (13.5-17.5); Lymphocytes # (auto) 0.5 10 ^3/uL (0.4-5.4); Lymphocytes % (auto) 4.9 % (10.0-50.0); Mean Corpuscular Hemoglobin 22.1 pg (28.0-32.0); Mean Corpuscular Hgb Conc. 27.6 g/dL (32.0-36.0); Mean Corpuscular Volume 80.3 fL (80.0-100.0); Monocytes # (auto) 1.1 10 ^3/uL (0-1.3); Neutrophils # (auto) 9.1 10 ^3/uL (1.6-8.6); Nucleated Red Blood Cells % 0.1 %; Platelet Count (auto) 396 10^3/uL (140-450); Red Blood Cells 5.24 10^6/uL (4.5-5.90); Red Cell Distribution Width 18.6 % (11.8-14.3); White Blood Cell 10.7 10^3/uL (4.4-10.8)
--- NOTE | 2025-01-16 09:24 | DVHSR ---
APPROVED REPORT EXAM: Two-dimensional and M-mode echocardiogram with Doppler and color Doppler. Blood Pressure: 103/59 mmHg INDICATION Pre-Op RISK FACTORS Obesity: Height: 5'7", Weight: 263 DIMENSIONS LVDd3.7 (3.8-5.7cm)LA (2D)3.7 (1.9-4.0cm)Aortic Root3.7 (2.0-3.7cm) LVDs2.6 (2.5-4.0cm)LA (MM) (1.9-4.0cm)Aortic Cusp Exc1.3 (1.5-2.0cm) EF (%) 60.0 (55-70%)Rt. Atrium4.3 (1.9-4.0cm)Asc. Aorta cm IVSd1.3 (0.7-1.1cm)RV (D) (1.8-2.4cm) PWd1.3 (0.7-1.1cm) Mitral Valve MitralMitral Stenosis E wave0.98m/sMV Mean GR.mmHg E/A ratio0.02D MVAcm2 Aortic Valve Aortic ValveAortic Stenosis V11.25m/Antolin Mean GR.9mmHg V22.00m/Antolin Peak GR.16mmHg LVOT Diameter2.1 (1.8-2.4cm)Doppler AVA2.16cm2 Pulmonic Valve V21.71m/s Tricuspid Valve TR Velocity3.18m/s [id number] Other Information Technically limited study due to body habitus, patient lying flat. Conclusion lvef 75% mild LVH septal hypertrophy aortic sclerosis , heavy calcium noted RV enlarged, normal function left atrium enlarged mild pulm htn noted
[2025-01-16 09:26] LABS: Alanine Aminotransferase 12 U/L (7-40); Albumin 3.8 g/dL (3.2-4.8); Alkaline Phosphatase 49 U/L (46-116); Anion Gap 10 (5-15); Aspartate Aminotransferase 34 U/L (13-40); BUN/Creatinine Ratio 17.2 (10.0-20.0); Blood Urea Nitrogen 17 mg/dL (9-23); Calcium 9.3 mg/dL (8.7-10.4); Potassium 4.7 mmol/L (3.5-5.1); Sodium 138 mmol/L (136-145); Total Protein 6.4 g/dL (5.7-8.2)
[2025-01-16 09:30] LABS: Bilirubin, Total 0.2 mg/dL (0.2-1.0); Carbon Dioxide 18 mmol/L (20-31); Chloride 110 mmol/L (98-107); Glucose 217 mg/dL (74-106)
--- NOTE | 2025-01-16 10:37 | ECG ---
[facility] Test Date: 2025-01-14 Test Time: 23:49:43 Pat Name: LYLE LOPES Department: ED Room: 0292T B Gender: M [employer] Coordinator: SYDNI : 1950 Requested By: JOSÉ MIGUEL DORAN Order Number: [id number] Reading MD: Slade Augustine Measurements Intervals [place] Rate: 62 P: 0 WI: 0 QRS: -68 QRSD: 154 T: 5 QT: 438 QTc: 445 Interpretive Statements Atrial fibrillation RBBB and LAFB Electronically Signed On 01-23-2025 10:50:45 PDT by Slade Augustine Please click the below link to view image of tracing.
--- NOTE | 2025-01-16 12:11 | DVH ---
CT abdomen and pelvis done without contrast INDICATION: PNEUMOPERITONEUM reassessment Comparison: 01/15/2025 TECHNIQUE: Serial axial images were performed through the abdomen and pelvis and then reformatted in the sagittal and coronal plane. All CT scans at this medical facility are performed using dose modula tion techniques as appropriate to a performed exam including the following: Automated exposure contro l was utilized; adjustment of the MA and/or KvP according to patient size; and use of iterative recon struction technique. FINDINGS: Effusion and consolidation in the left lung base. NG tube is present There is fluid surrounding the spleen The liver is intact. Clips in the gallbladder fossa. 10 cm left renal cyst. No hydronephrosis No masses in the adrenal glands. Pancreas is atrophied No evidence of bowel obstruction. A small amount of free air is present in the non dependent portion of the peritoneal cavity. In the pelvis there is a Marquez catheter in the urinary bladder. There is no free fluid IMPRESSION: 1. Compared to previous exam slight decrease in the amount of free air in the peritoneal cavity. Ther e is no free fluid. 2. There is increasing effusion and consolidation in the left lung base Computed Tomographic Radiation Dosimetry Report: Total CTDI vol = 25.27mGy Total DLP = 1605.12mGy-cm Low dose protocols were performed.
--- NOTE | 2025-01-16 12:29 | DVHPN2 ---
Progress Note - Dictate Date Seen: January 16, 2025 Medical Necessity Reason Pt with a Central, PICC or Fol: No Subjective E: no major events o/n. feels better with slt less pain than yesterday. +BM last night. vital signs Vital Sign Date Time Temp Pulse Resp B/P (MAP) Pulse Ox O2 Delivery O2 Flow Rate FiO2 01/16/25 11:00 106 18 147/80 01/16/25 09:00 98.0 94 98.0 01/16/25 08:00 Nasal Cannula* 5 40 Total Intake and Output 01/15/25 01/15/25 01/16/25 15:00 23:00 07:00 Intake Total 100 ml 100 ml 0 ml Output Total 1500 ml 1300 ml Balance 100 ml -1400 ml -1300 ml medications Current Medications Medications Dose Ordered Sig/Vincent Route Start Time Stop Time Status Last Admin Dose Admin Warfarin Sodium RX PROTOCOL PER PHARMACY PO 01/15/25 01:45 Cancel Albuterol 2.5 mg Q4HPRN PRN NEB 01/15/25 01:45 Ipratropium [place] 0.5 mg Q4HPRN PRN NEB 01/15/25 01:45 Hydralazine HCl 10 mg Q6HP PRN IV 01/15/25 01:45 Methylprednisolone Sodium Succinate 40 mg BID IV 01/15/25 10:00 01/16/25 09:25 40 MG Diagnostic Test (Pha) 1 strip ACHS 01/15/25 07:00 01/16/25 11:00 1 STRIP Insulin Human Regular HS SC 01/15/25 22:00 Insulin Human Regular AC SC 01/15/25 07:00 Dextrose 50 ml UD PRN IV 01/15/25 01:45 Acetaminophen/ Hydrocodone Bitart 1 tab Q4HP PRN PO 01/15/25 01:45 Hold 01/15/25 02:57 1 TAB Ondansetron HCl 4 mg Q4HP PRN IV 01/15/25 01:45 01/16/25 11:07 4 MG Docusate Sodium 100 mg BIDPRN PRN PO 01/15/25 01:45 Acetaminophen 650 mg Q6HP PRN PO 01/15/25 01:45 Nitroglycerin 0.4 mg Q5MINP PRN SL 01/15/25 01:45 Morphine Sulfate 2 mg Q30M PRN IV 01/15/25 01:45 01/16/25 06:41 2 MG Piperacillin Sod/ Tazobactam Sod 100 ml @ 25 mls/hr Q8HR IV 01/15/25 06:00 01/16/25 05:44 25 MLS/HR Pantoprazole Sodium 40 mg BID IV 01/15/25 10:00 01/16/25 09:25 40 MG Morphine Sulfate 2 mg Q4HPRN PRN IV 01/15/25 09:15 01/16/25 11:00 2 MG Morphine Sulfate 4 mg Q4HPRN PRN IV 01/15/25 09:15 Sodium Chloride 1,000 ml @ 100 mls/hr Q10H IV 01/15/25 14:45 01/16/25 09:29 100 MLS/HR objective GEN: NAD ABD: diffuse TTP but slt better. CT ABD/PELVIS: less free air. laboratory and microbiology Laboratory Tests 01/16/25 06:45 Test 01/16/25 06:45 Range/Units Serum Glucose 217 H 74-106 mg/dL Assessment/Plan A: 1. Perforated viscus with small to moderate amount of pneumoperitoneum but clinically improving. P: 1. cont conservative tx with NGT decompression and abx. 2. TPN 3. PT eval Plan discussed with: Patient JACKLYN OLMEDO MD January 16, 2025 12:29
[2025-01-16] MEDS ORDERED: TPN PER PHARMACY 0 ML IV SCH (13:15)
--- NOTE | 2025-01-16 13:50 | DVHPNRES ---
Progress Note Date Seen: January 16, 2025 Resident Creating Document: SID GALLARDO RESIDENT Has the PT tested + for MRSA If YES, has PT been informed?: No Medical Necessity Reason Pt with a Central, PICC or Fol: No Medical Necessity Reason History of Present Illness The patient is a 74-year-old male with past medical history of DM, AFib, hypertension, anemia, and hyperlipidemia who presented to [facility] ED with complaint of near syncopal episode. Patient reports having severe epigastric pain, radiating to the chest, mid, and lower abdomen, sharp in nature, associated shortness of breaths, nausea, getting worse that prompted this visit. Patient was seen and evaluated in the ED, laboratory data shows WBC 9.7, hemoglobin 10.0, hematocrit 33.9, platelets 421, sodium 138, potassium 4.1, BUN 18, creatinine 1.02, glucose 210, BNP 72.67, lipase 54, troponin 4, lactic acid 2.6, blood pressure 80/42 trending up to 117/47, heart rate 63, temperature 97.2 F, O2 saturation 92% on oxygen. Abdomen/pelvis CT revealing status post gastric bypass with 40 of free adjacent to the stomach concerning for perforation at the surgical incision sites from the bypass versus due to ulceration of the stomach; there is moderate amount of free air along the midline anterior abdomen adjacent to the transverse colon; critical findings pneumoperitoneum. Patient was started on on breathing treatment, given IV Solu- Medrol, please see medication orders section in the computer. On my assessment, patient denied chest pain, no headache, no dizziness, currently on oxygen, no diaphoresis, no nausea, no vomiting, no fever, no chills. Patient was admitted for further evaluation and medical management. Past Medical History: AFIB, High Lipids, HTN, Anemia, DM Past Surgical History: Gastric bypass, Right knee surgery, Cervical and lumbar laminectomies Family History: Reviewed, noncontributory to the management of this case. Past Social History:The patient lives at home, denies smoking, alcohol or illicit drugs abuse. 01/16/2025 Patient is seen and examined today. He has NG tube in place draining bile substances from his abdomen. He is currently being managed for pneumoperitoneum. CT abdomen this am showed Compared to previous exam slight decrease in the amount of free air in the peritoneal cavity. There is no free fluid.There is increasing effusion and consolidation in the left lung base. pneumoperitoneum is improving. Surgery is following and recommended conservative management. Patient denied any fever, chills but he is normally on 2L of xygen at home. He has a history of COPD. He actually had a bowel movement this morning. We will continue to monitor patient closely replace electrolytes as needed and continue conservative management as recommended by the surgical team. Subjective Review of Systems Constitutional: Denies fever no chills no feeling of malaise HEENT: Denies headache, ear pain, ear discharges, conjunctivitis, nasal discharge throat pain Cardiovascular: Denies chest pain, palpitation, orthopnea, PND, or pedal edema Respiratory: shortness of breath, cough cough, sputum production, hemoptysis, GI: abdominal pain, No nausea, vomiting, diarrhea, hematemesis, hematochezia, : Denies frequency, urgency, hematuria, Endocrine: Denies unintentional weight gain or weight loss, feeling of hot flashes, Jose: Denies easy bruising, bleeding disorders, epistaxis Musculoskeletal: Denies joint pains, muscle aches Psych: No evidence of depression, aniyah, suicidal ideation Objective vital signs Vital Sign Date Time Temp Pulse Resp B/P (MAP) Pulse Ox O2 Delivery O2 Flow Rate FiO2 01/16/25 13:00 97.4 106 16 146/72 (96) 97 97.4 01/16/25 08:00 Nasal Cannula* 5 40 Total Intake and Output 01/15/25 01/15/25 01/16/25 15:00 23:00 07:00 Intake Total 100 ml 100 ml 0 ml Output Total 1500 ml 1300 ml Balance 100 ml -1400 ml -1300 ml medications Current Medications Medications Dose Ordered Sig/Vincent Route Start Time Stop Time Status Last Admin Dose Admin Warfarin Sodium RX PROTOCOL PER PHARMACY PO 01/15/25 01:45 Cancel Albuterol 2.5 mg Q4HPRN PRN NEB 01/15/25 01:45 Ipratropium [place] 0.5 mg Q4HPRN PRN NEB 01/15/25 01:45 Hydralazine HCl 10 mg Q6HP PRN IV 01/15/25 01:45 Methylprednisolone Sodium Succinate 40 mg BID IV 01/15/25 10:00 01/16/25 09:25 40 MG Diagnostic Test (Pha) 1 strip ACHS 01/15/25 07:00 01/16/25 11:00 1 STRIP Insulin Human Regular HS SC 01/15/25 22:00 Insulin Human Regular AC SC 01/15/25 07:00 Dextrose 50 ml UD PRN IV 01/15/25 01:45 Acetaminophen/ Hydrocodone Bitart 1 tab Q4HP PRN PO 01/15/25 01:45 Hold 01/15/25 02:57 1 TAB Ondansetron HCl 4 mg Q4HP PRN IV 01/15/25 01:45 01/16/25 11:07 4 MG Docusate Sodium 100 mg BIDPRN PRN PO 01/15/25 01:45 Acetaminophen 650 mg Q6HP PRN PO 01/15/25 01:45 Nitroglycerin 0.4 mg Q5MINP PRN SL 01/15/25 01:45 Morphine Sulfate 2 mg Q30M PRN IV 01/15/25 01:45 01/16/25 06:41 2 MG Piperacillin Sod/ Tazobactam Sod 100 ml @ 25 mls/hr Q8HR IV 01/15/25 06:00 01/16/25 05:44 25 MLS/HR Pantoprazole Sodium 40 mg BID IV 01/15/25 10:00 01/16/25 09:25 40 MG Morphine Sulfate 2 mg Q4HPRN PRN IV 01/15/25 09:15 01/16/25 11:00 2 MG Morphine Sulfate 4 mg Q4HPRN PRN IV 01/15/25 09:15 Sodium Chloride 1,000 ml @ 100 mls/hr Q10H IV 01/15/25 14:45 01/16/25 09:29 100 MLS/HR Examination General Appearance: Alert, Oriented X3, Cooperative, mild distresss, distress HEENT: Atraumatic, PERRLA, EOMI, Mucous membrane moist/pink Respiratory: mild rales , Normal air movement Cardiovascular: Regular rate, Normal S1, Normal S2, No murmurs, no chest wall tenderness Abdominal: distention, generalized tenderness, bowel sounds present, no scars noted Extremities: No clubbing, No cyanosis, No edema, Normal pulses, No tenderness/swelling Skin: No rashes, No breakdown, No significant lesion Neuro: in bed. Psych/Mental Status: Mental status NL, Mood NL laboratory and microbiology Laboratory Tests 01/16/25 06:45 Test 01/16/25 06:45 Range/Units Serum Glucose 217 H 74-106 mg/dL Microbiology Date/Time Source Procedure Growth Status 01/15/25 00:28 Blood Blood Culture - Preliminary NO GROWTH AFTER 24 HOURS OF INCUBATION. Resulted Problem List/Assessment/Plan Problem List/Assessment/Plan Assessment and plan Near syncope likely due to below Acute epigastric abdominal pain, intractable Perforated viscus and pneumoperitoneum, with history of gastric bypass, Perforated viscus with small to moderate amount of pneumoperitoneum but clinically improving. Lactic acidosis, resolved Sepsis due to above Acute respiratory distress Diabetes with hyperglycemia AFib on Coumadin Tachypnea Lipase elevated, mild Plan Antibiotics Zosyn Add Azithromycin* Solu-Medrol for breathing, Solu-Medrol 40 IV b.i.d. Protonix 40 IV b.i.d. IV fluids 100 cc/hour NPO Surgery following: conservative management Blood cultures pending Sliding scale insulin moderate a.c. HS DVT prophylaxis GI prophylaxis Full code Care discussed for more than a 18 minute: Full code Case and plan discussed with Dr. Novoa Plan discussed with: Patient My Orders My Orders Orders - SID GALLARDO Procedure Category Date Status Time Ct Ab Pel Wo Con-No CT 01/16/25 Resulted Oral Or Iv 08:25 Date of Service: January 16, 2025 Billing Provider: POOJA BUSTOS MD Common Visit Codes: [id number] INP/OBS CARE(HIGH) SID GALLARDO January 16, 2025 13:50 POOJA BUSTOS MD Jan 30, 2025 09:34
--- NOTE | 2025-01-16 14:52 | DVHINCON2 ---
MYA HELLER [facility] 01/16/25 1452: Date Seen: January 16, 2025 Referring Physician MD Marge Reason for Consultation Cardiac risk stratification History of Present Illness This is a 74-year-old male patient who presents to the emergency room with chief complaint of radiating abdominal pain. On the day of admission, the patient reports having dinner with a friends. He reports that shortly after, he began not feeling very well on decided to take a nap. Upon awakening, he reports severe epigastric pain radiating down his to his genitalia. He also reports feeling as though he was going to "pass out". The patient was brought to the emergency room for further evaluation. Imaging has revealed a pneumoperitoneum. Cardiology has been consulted at this time for cardiac risk stratification. Initial twelve lead electrocardiogram reveals atrial fibrillation with right bundle branch block. Serial troponin levels have been negative. Significant past medical history includes atrial fibrillation (on Xarelto), abdominal aortic aneurysm, hypertension, type 2 diabetes mellitus, and morbid obesity. The patient states that he follows up with [facility] in the outpatient setting. Past Medical History Past medical history reviewed. No other significant than mentioned above. 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 Social History Patient has a 30 pack-year history, quit smoking approximately 15 years ago Denies any illicit drug use Denies any alcohol use Allergies: Coded Allergies: Statins (Verified Allergy, Severe, 01/01/24) Home Meds Reported Medications Rivaroxaban (Xarelto Tablet) 20 Mg Tb, 20 MG PO DAILY, TAB 01/15/25 Lisinopril (Lisinopril) 40 Mg Tab, 40 MG PO DAILY for 30 Days, MG 01/15/25 Chlorpheniramine Maleate (Chlorpheniramine Maleate) 12 Mg Tab, 12 MG PO DAILY PRN for allergy, TAB 01/15/25 Qtbnesztqfg-Vftkyvpqanhu-Wfkux (Trelegy Ellipta 100-62.5-25 Mcg/INH) 1 Aer Aer, 1 AER IN DAILY, AER 01/15/25 Empagliflozin (Jardiance) 10 Mg Tab, 10 MG PO DAILY, TAB 01/15/25 Cetirizine Hcl (Kls Aller-Renetta) 10 Mg Tab, 1 TAB PO DAILY, #30 TAB 3 Refills 01/11/24 Omeprazole (Gnp Omeprazole) 20 Mg Tab, 1 TAB PO BID, #90 TAB 1 Refill 01/11/24 Polyethylene Glycol 3350 (Polyethylene Glycol) 17 Gm/Scoop Pow, 17 GM PO DAILY, POW 01/11/24 Warfarin Sodium (Warfarin Sodium) 5 Mg Tab, 15 MG PO MWFSa for 30 Days, MG 01/02/24 Diltiazem Hcl (Cardizem La) 120 Mg Tab, 1 01/01/24 Hctz (Hydrochlorothiazide) 25 Mg Tab, 12.5 MG PO DAILY 01/01/24 Lisinopril (Lisinopril) 40 Mg Tab, 1 TAB PO DAILY 01/01/24 Warfarin Sodium (Warfarin Sodium) 10 Mg Tab, 1 TAB PO TUE,BROOKE,SUN 01/01/24 Tramadol Hcl (Tramadol Hcl) 50 Mg Tab, 1 TAB PO BIDPRN PRN 01/01/24 Cyclobenzaprine HCl (Cyclobenzaprine Hydrochlo) 5 Mg Tab, 1 TAB PO BID 01/01/24 Gabapentin (Gabapentin) 300 Mg Cap, 3 CAP PO TID 01/01/24 Metoprolol Succinate (Metoprolol Succinate Er) 100 Mg Tab, 50 TAB PO DAILY 01/01/24 Metformin Hydrochloride (Metformin Hcl) 1,000 Mg Tab, 1 TAB PO BID 01/01/24 Oxycodone Hcl (OXYCODONE HCL) 5 Mg Tb, 1 TAB PO TID PRN 01/01/24 Home Meds Home medications reviewed. Current Medications Current Medications Medications (Trade) Dose Ordered Sig/Vincent Route PRN Reason Start Time Stop Time Status Last Admin Insulin Human Regular (InsuLIN R) HS SC 01/15/25 22:00 Sodium Chloride 1,000 ml @ 100 mls/hr Q10H IV 01/15/25 14:45 01/16/25 09:29 Amino Acids 0 ml @ 0 mls/hr PER PHARMACY IV 01/16/25 13:15 Review of Systems Constitutional: No symptom reported Ears, Nose, & Throat: No symptom reported Eyes: No symptom reported Neurological: Near syncopal episode Pulmonary/Respiratory: No symptoms reported Cardiovascular: No symptom reported Gastrointestinal: Abdominal pain Genitourinary: No symptom reported Musculoskeletal: No symptom reported Skin: No symptom reported Psychiatric: No symptom reported Endocrine: No symptom reported Hematologic/Lymphatic: No symptom reported Vital Signs Vital Signs Date Time Temp Pulse Resp B/P (MAP) Pulse Ox O2 Delivery O2 Flow Rate FiO2 01/16/25 13:00 97.4 106 16 146/72 (96) 97 97.4 01/16/25 08:00 Nasal Cannula* 5 40 Physical Exam General Appearance: Cooperative. Morbidly obese Pulmonary/Respiratory: Clear, bilateral breaths sounds. Cardiovascular/Chest: Irregular rate and rhythm. Peripheral Pulses: 2+ Radial (R). 2+ Radial (L). 2+ Pedal (R). 2+ Pedal (L) Abdominal Exam: Large distended abdomen Ankle Exam: Negative ankle edema Lower extremities: Negative lower extremity edema Neuro/Mental Status: A/OX4, coherent. Thoughts/Psych: Normal thought pattern. Appropriate mood and affect. Good judgment and insight. Appearance: No acute distress. Skin Exam: Normal inspection. Pale. Skin warm and dry Labs/Diagnostic Data Labs Test 01/16/25 11:03 01/16/25 06:45 01/15/25 09:50 01/15/25 01:59 Range/Units POC Glucose 189 H 70-106 mg/dl White Blood Count 10.7 # 4.4-10.8 10^3/uL Red Blood Count 5.24 4.5-5.90 10^6/uL Hemoglobin 11.6 L 13.5-17.5 g/dL Hematocrit 42.1 # 41.0-53.0 % Mean Corpuscular Volume 80.3 # 80.0-100.0 fL Mean Corpuscular Hemoglobin 22.1 L 28.0-32.0 pg Mean Corpuscular Hemoglobin Concent 27.6 L 32.0-36.0 g/dL Red Cell Distribution Width 18.6 H 11.8-14.3 % Platelet Count 396 140-450 10^3/uL Mean Platelet Volume 6.8 L 6.9-10.8 fL Neutrophils (%) (Auto) 85.0 H 37.0-80.0 % Lymphocytes (%) (Auto) 4.9 L 10.0-50.0 % Monocytes (%) (Auto) 10.0 0.0-12.0 % Eosinophils (%) (Auto) 0.0 0.0-7.0 % Basophils (%) (Auto) 0.1 0.0-2.0 % Neutrophils # (Auto) 9.1 H 1.6-8.6 10 ^3/uL Lymphocytes # (Auto) 0.5 0.4-5.4 10 ^3/uL Monocytes # (Auto) 1.1 0-1.3 10 ^3/uL Eosinophils # (Auto) 0 0-0.8 10 ^3/uL Basophils # (Auto) 0 0-0.2 10 ^3/uL Nucleated Red Blood Cells 0.1 % Sodium Level 138 136-145 mmol/L Potassium Level 4.7 3.5-5.1 mmol/L Chloride Level 110 H 98-107 mmol/L Carbon Dioxide Level 18 L 20-31 mmol/L Anion Gap 10 5-15 Blood Urea Nitrogen 17 9-23 mg/dL Creatinine 0.99 0.700-1.30 mg/dL Glomerular Filtration Rate Calc 79 >90 mL/min BUN/Creatinine Ratio 17.2 10.0-20.0 Serum Glucose 217 H 74-106 mg/dL Calcium Level 9.3 8.7-10.4 mg/dL Total Bilirubin 0.2 0.2-1.0 mg/dL Aspartate Amino Transferase (AST) 34 13-40 U/L Alanine Aminotransferase (ALT) 12 7-40 U/L Alkaline Phosphatase 49 46-116 U/L Total Protein 6.4 5.7-8.2 g/dL Albumin 3.8 3.2-4.8 g/dL Lactic Acid Level 1.7 0.4-2.0 mmol/L Urine Color Light-yellow Yellow Urine Clarity Clear Clear Urine pH 6.0 5.0-9.0 Urine Specific [place] 1.018 1.001-1.035 Urine Protein Negative Negative Urine Ketones Negative Negative Urine Blood Negative Negative /uL Urine Nitrite Negative Negative Urine Bilirubin Negative Negative Urine Urobilinogen Normal Negative mg/dL Urine Leukocyte Esterase Negative Negative /uL Urine RBC <1 0 - 3 /hpf Urine Microscopic WBC 0-3 /HPF Urine Squamous Epithelial Cells None seen <5 /hpf Urine Bacteria None seen None Seen /hpf Urine Glucose 4+ H Normal mg/dL Test 01/15/25 01:28 01/15/25 00:28 Range/Units Troponin I High Sensitivity 4 </=54 ng/L Prothrombin Time 13.5 H 9.3-11.8 sec Prothrombin Time INR 1.31 H 0.9-1.15 Activated Partial Thromboplast Time 31.9 24.5-34.5 SEC B-Type Natriuretic Peptide 72.67 0-100 pg/mL Lipase 54 H 12-53 U/L Microbiology Date/Time Source Procedure Growth Status 01/15/25 00:28 Blood Blood Culture - Preliminary NO GROWTH AFTER 24 HOURS OF INCUBATION. Resulted Assessment Preprocedural cardiovascular examination Pneumoperitoneum Sepsis Atrial fibrillation (on Xarelto) Hypertension History of abdominal aortic aneurysm Pulmonary hypertension Type 2 diabetes mellitus Morbid obesity Plan/Recommendation We will continue with the following plan/recommendations (Dr. Nava): Patient seen and examined at bedside with . Transthoracic echocardiogram reveals EF 75% with septal hypertrophy and RVSP 48 mmHg. Revised cardiac risk index (Juan criteria): 2 points (10.1%, risk of major cardiac event). Chest x-ray reveals cardiomegaly with pulmonary vascular congestion. Prior to admission, the patient reports a good functional capacity. Per [facility] rdiology standpoint, the patient is at an intermediate to high risk for moderate risk surgery. There is no additional cardiac workup indicated prior to surgery. Consider resuming NOAC therapy postprocedure within 24 hours status post- procedure if low post-procedural bleeding risk. Resume NOAC therapy within 48-72 hours if high post-procedural bleeding risk. Thank you for allowing us to care for this patient. Please call with any questions or concerns. Critical care time spent: 44 minutes This medical document was created using an electronic medical record system with voice recognition software and computerized dictation system. Although this document has been carefully reviewed, there might still be some phonetic and typographical errors. Occasional wrong-word or ``sound-alike substitutions may have occurred due to the inherent limitations of voice recognition software. These areas are purely typographical due to imperfections of the software programs and do not reflect any compromise in the patient's medical care. Please read the chart carefully and recognize, using context, where these substitutions have occurred. Plan discussed with: Patient NYHA Physical activity limitations: NA Date of Service: January 16, 2025 Billing Provider: MYA HELLER Cardiology Common Codes: 97447-PZPBMVP INP/OBS CARE (High) Cardiology Consultation Codes: [id number] CONSULT <45MIN ODALYS NAVA MD 01/17/25 1229: Family History: Hypertension G8 FATHER Allergies: Coded Allergies: Statins (Verified Allergy, Severe, 01/01/24) Home Meds Reported Medications Rivaroxaban (Xarelto Tablet) 20 Mg Tb, 20 MG PO DAILY, TAB 01/15/25 Lisinopril (Lisinopril) 40 Mg Tab, 40 MG PO DAILY for 30 Days, MG 01/15/25 Chlorpheniramine Maleate (Chlorpheniramine Maleate) 12 Mg Tab, 12 MG PO DAILY PRN for allergy, TAB 01/15/25 Baxhrbehdmd-Tbdzikbdhcmd-Unabl (Trelegy Ellipta 100-62.5-25 Mcg/INH) 1 Aer Aer, 1 AER IN DAILY, AER 01/15/25 Empagliflozin (Jardiance) 10 Mg Tab, 10 MG PO DAILY, TAB 01/15/25 Cetirizine Hcl (Kls Aller-Renetta) 10 Mg Tab, 1 TAB PO DAILY, #30 TAB 3 Refills 01/11/24 Omeprazole (Gnp Omeprazole) 20 Mg Tab, 1 TAB PO BID, #90 TAB 1 Refill 01/11/24 Polyethylene Glycol 3350 (Polyethylene Glycol) 17 Gm/Scoop Pow, 17 GM PO DAILY, POW 01/11/24 Warfarin Sodium (Warfarin Sodium) 5 Mg Tab, 15 MG PO MWFSa for 30 Days, MG 01/02/24 Diltiazem Hcl (Cardizem La) 120 Mg Tab, 1 01/01/24 Hctz (Hydrochlorothiazide) 25 Mg Tab, 12.5 MG PO DAILY 01/01/24 Lisinopril (Lisinopril) 40 Mg Tab, 1 TAB PO DAILY 01/01/24 Warfarin Sodium (Warfarin Sodium) 10 Mg Tab, 1 TAB PO TUE,BROOKE,SUN 01/01/24 Tramadol Hcl (Tramadol Hcl) 50 Mg Tab, 1 TAB PO BIDPRN PRN 01/01/24 Cyclobenzaprine HCl (Cyclobenzaprine Hydrochlo) 5 Mg Tab, 1 TAB PO BID 01/01/24 Gabapentin (Gabapentin) 300 Mg Cap, 3 CAP PO TID 01/01/24 Metoprolol Succinate (Metoprolol Succinate Er) 100 Mg Tab, 50 TAB PO DAILY 01/01/24 Metformin Hydrochloride (Metformin Hcl) 1,000 Mg Tab, 1 TAB PO BID 01/01/24 Oxycodone Hcl (OXYCODONE HCL) 5 Mg Tb, 1 TAB PO TID PRN 01/01/24 Plan/Recommendation pt seen with cv team pt may not need surgery no rebound Plan discussed with: Patient MYA HELLER January 16, 2025 14:52 ODALYS NAVA MD January 17, 2025 12:29
[2025-01-16] MEDS: AZITHROMYCIN 500MG/ 250ML 250 ML IV ONE (15:44)
[2025-01-16] MEDS: LIDOCAINE 1% (LOCAL ANESTH.) PF 5ml SDV ID ONE (16:18)
[2025-01-16] MEDS: LACTATED RINGER'S 500 ML IV ONE (18:20)
[2025-01-16] MEDS ORDERED: hydrALAZINE HCL 20 MG/ML VL IV PRN (20:00)
[2025-01-16] MEDS: SODIUM CHLOR 0.9% PF (SALINE LOCK) 10ML VIAL/SYR IV SCH (21:04)
[2025-01-16] MEDS: AMINO ACID INFUSION IN D10W 1,000 ML IV SCH (21:06)
[2025-01-16] MEDS ORDERED: VANCOMYCIN PER PHARMACY 0 MG IV SCH (23:00)
[2025-01-17] VITALS (16 sets, daily range): BP systolic 133–170; BP diastolic 50–93; PULSE 51–106; RESP 17–24; TEMP 96.5–98.4; O2SAT 88–99
[2025-01-17] MEDS: ENOXAPARIN SOD 100 MG/1 ML SYRINGE SC ONE (00:35)
[2025-01-17] MEDS: METOPROLOL TARTRATE 1MG/1ML-5ML VIAL IV ONE ×2 (00:35→05:19)
[2025-01-17] MEDS: VANCOMYCIN 1GM/200ML PM 200 ML IV SCH (00:41)
--- NOTE | 2025-01-17 01:05 | DVH ---
CHEST RADIOGRAPH Indication: NG tube placement Technique: Single frontal view of the chest was obtained COMPARISON: XY CHEST PORTABLE on DOS: 01/15/25 FINDINGS / IMPRESSION: Lines and Tubes: Interval insertion of right-sided PICC with its tip projecting over cavoatrial junct ion. NG tube noted with its tip projecting over the gastric body, similar in appearance compared to the prior chest x-ray from 01/15/25 Lungs: Low lung volumes with crowding of the bronchovascular markings. Bibasilar subsegmental atelect asis greater on the left side. No evidence of pulmonary edema. Cardiomediastinal contours: Unremarkable
[2025-01-17] MEDS: LACTATED RINGER'S 1,000 ML IV SCH (01:30)
[2025-01-17] MEDS: IPRATROPIUM BROM 0.5 MG/2.5ML INH SOL NEB PRN (04:57)
[2025-01-17] MEDS: ALBUTEROL SULF 2.5 MG/0.5ML(0.5%) NEB SOLN NEB PRN (04:57)
[2025-01-17] MEDS: AMIODARONE BOLUS KIT 100 ML IV ONE (05:00)
[2025-01-17] MEDS: AMIODARONE 360mg/200mL PREMIX 200 ML IV ONE (05:02)
[2025-01-17 05:23] LABS: Base Excess -4.1 mmol/L (-2.0-3.0)
--- NOTE | 2025-01-17 07:12 | DVH ---
EXAM: XR Chest, 1 View CLINICAL INDICATION: SOB TECHNIQUE: Frontal view of the chest. COMPARISON: XY CHEST XRAY 1 VIEW on DOS: 01/17/25, XY CHEST PORTABLE on DOS: 01/15/25, XY CHEST EDISON BLE on DOS: 01/15/25, XY CHEST PORTABLE on DOS: 01/07/24, XY CHEST PORTABLE on DOS: 01/01/24 FINDINGS: LUNGS AND PLEURAL SPACES: Mild congestive heart failure. No consolidation. No pneumothorax. HEART: Unremarkable. No cardiomegaly. MEDIASTINUM: Unremarkable. Normal mediastinal contour. BONES/JOINTS: Unremarkable. No acute fracture. TUBES, LINES AND DEVICES: Right peripherally inserted central catheter (PICC) tip in the superior v blanca cava. Enteric tube tip in the stomach. OTHER FINDINGS: . IMPRESSION: Mild congestive heart failure.
[2025-01-17 07:13] LABS: Base Excess -2.1 mmol/L (-2.0-3.0)
[2025-01-17 08:00] LABS: Base Excess -0.7 mmol/L (-2.0-3.0)
[2025-01-17 08:36] LABS: Basophils # (auto) 0 10 ^3/uL (0-0.2); Eosinophils # (auto) 0 10 ^3/uL (0-0.8); Mean Corpuscular Hemoglobin 22.4 pg (28.0-32.0); Monocytes # (auto) 0.9 10 ^3/uL (0-1.3); Neutrophils # (auto) 10.3 10 ^3/uL (1.6-8.6); White Blood Cell 11.7 10^3/uL (4.4-10.8)
[2025-01-17 08:39] LABS: Basophils % (auto) 0.2 % (0.0-2.0); Hemoglobin 9.1 g/dL (13.5-17.5); Lymphocytes # (auto) 0.4 10 ^3/uL (0.4-5.4); Lymphocytes % (auto) 3.6 % (10.0-50.0); Mean Corpuscular Hgb Conc. 30.5 g/dL (32.0-36.0); Mean Corpuscular Volume 73.5 fL (80.0-100.0); Neutrophils % (auto) 88.2 % (37.0-80.0); Nucleated Red Blood Cells % 0.2 %; Platelet Count (auto) 420 10^3/uL (140-450); Red Blood Cells 4.08 10^6/uL (4.5-5.90); Red Cell Distribution Width 17.9 % (11.8-14.3)
[2025-01-17 08:52] LABS: Alanine Aminotransferase 12 U/L (7-40); Alkaline Phosphatase 54 U/L (46-116); Anion Gap 7 (5-15); Aspartate Aminotransferase 15 U/L (13-40); BUN/Creatinine Ratio 29.8 (10.0-20.0); Calcium 9.5 mg/dL (8.7-10.4); Carbon Dioxide 27 mmol/L (20-31); Magnesium 2.5 mg/dL (1.6-2.6); Potassium 4.2 mmol/L (3.5-5.1); Sodium 141 mmol/L (136-145); Total Protein 6.6 g/dL (5.7-8.2)
[2025-01-17 08:53] LABS: Blood Urea Nitrogen 28 mg/dL (9-23); Chloride 107 mmol/L (98-107); Glucose 238 mg/dL (74-106)
[2025-01-17 08:54] LABS: Bilirubin, Total 0.2 mg/dL (0.2-1.0); Phosphorus 2.2 mg/dL (2.4-5.1)
[2025-01-17] MEDS: ENOXAPARIN SOD 100 MG/1 ML SYRINGE SC SCH (09:04)
[2025-01-17] MEDS: AZITHROMYCIN 500MG/ 250ML 250 ML IV SCH (09:57)
[2025-01-17] MEDS: METOPROLOL SUCCINATE XL 50 MG TAB PO SCH (10:00)
--- NOTE | 2025-01-17 10:10 | DVHPN2 ---
Progress Note - Dictate Date Seen: January 17, 2025 Has the PT tested + for MRSA If YES, has PT been informed?: No Medical Necessity Reason Pt with a Central, PICC or Fol: No Subjective E: agitated this AM and was on BIPAP briefly but no back on NC feels better. less pain. vital signs Vital Sign Date Time Temp Pulse Resp B/P (MAP) Pulse Ox O2 Delivery O2 Flow Rate FiO2 01/17/25 09:48 104 24 158/80 01/17/25 07:48 93 Facial BiPAP Mask 30 01/17/25 05:00 96.5 96.5 01/17/25 04:57 8.0 Total Intake and Output 01/16/25 01/16/25 01/17/25 15:00 23:00 07:00 Intake Total 220 ml 650 ml 1286 ml Output Total 150 ml 900 ml 1100 ml Balance 70 ml -250 ml 186 ml medications Current Medications Medications Dose Ordered Sig/Vincent Route Start Time Stop Time Status Last Admin Dose Admin Warfarin Sodium RX PROTOCOL PER PHARMACY PO 01/15/25 01:45 Cancel Albuterol 2.5 mg Q4HPRN PRN NEB 01/15/25 01:45 01/17/25 04:57 2.5 MG Ipratropium [place] 0.5 mg Q4HPRN PRN NEB 01/15/25 01:45 01/17/25 04:57 0.5 MG Methylprednisolone Sodium Succinate 40 mg BID IV 01/15/25 10:00 01/17/25 09:02 40 MG Diagnostic Test (Pha) 1 strip ACHS 01/15/25 07:00 01/17/25 06:09 1 STRIP Insulin Human Regular HS SC 01/15/25 22:00 01/16/25 22:11 3 UNITS Insulin Human Regular AC SC 01/15/25 07:00 01/17/25 06:09 6 UNITS Dextrose 50 ml UD PRN IV 01/15/25 01:45 Acetaminophen/ Hydrocodone Bitart 1 tab Q4HP PRN PO 01/15/25 01:45 Hold 01/15/25 02:57 1 TAB Ondansetron HCl 4 mg Q4HP PRN IV 01/15/25 01:45 01/17/25 09:16 4 MG Docusate Sodium 100 mg BIDPRN PRN PO 01/15/25 01:45 Acetaminophen 650 mg Q6HP PRN PO 01/15/25 01:45 Nitroglycerin 0.4 mg Q5MINP PRN SL 01/15/25 01:45 Morphine Sulfate 2 mg Q30M PRN IV 01/15/25 01:45 01/17/25 01:31 2 MG Piperacillin Sod/ Tazobactam Sod 100 ml @ 25 mls/hr Q8HR IV 01/15/25 06:00 01/17/25 05:58 25 MLS/HR Pantoprazole Sodium 40 mg BID IV 01/15/25 10:00 01/17/25 09:02 40 MG Morphine Sulfate 2 mg Q4HPRN PRN IV 01/15/25 09:15 01/17/25 09:18 2 MG Morphine Sulfate 4 mg Q4HPRN PRN IV 01/15/25 09:15 Amino Acids 0 ml @ 0 mls/hr PER PHARMACY IV 01/16/25 13:15 Azithromycin 250 ml @ 125 mls/hr DAILY IV 01/17/25 10:00 01/17/25 09:57 125 MLS/HR Sodium Chloride 10 ml QSHIFT@10,22 IV 01/16/25 22:00 01/17/25 09:13 10 ML Amino Acids/ Electrolytes/ Dextrose 1,000 ml @ 41 mls/hr DAILY@2200 IV 01/16/25 22:00 01/17/25 21:59 01/16/25 21:06 41 MLS/HR Hydralazine HCl 10 mg Q6HP PRN IV 01/16/25 20:00 Lactated Ringer's 1,000 ml @ 100 mls/hr Q10H IV 01/16/25 20:00 01/17/25 01:30 100 MLS/HR Metoprolol Succinate 50 mg DAILY PO 01/17/25 10:00 Enoxaparin Sodium 120 mg Q12HR SC 01/17/25 10:00 01/17/25 09:04 120 MG Vancomycin HCl 0 ml @ 0 mls/hr UD IV 01/16/25 23:00 UNV Lorazepam 0.5 mg Q6HP PRN IV 01/17/25 07:45 Metoprolol Tartrate 1.25 mg Q6HR IV 01/17/25 09:45 objective GEN: NAD ABD: soft. much less TTP. laboratory and microbiology Laboratory Tests 01/17/25 08:10 Test 01/17/25 08:10 Range/Units Serum Glucose 238 H 74-106 mg/dL Assessment/Plan A: 1. Perforated viscus with small to moderate amount of pneumoperitoneum but clinically improving. P: 1. cont conservative tx with NGT decompression and abx. 2. UGI with gastrografin tomorrow. if no leak, dc ngt and start clear liquid diet tomorrow. Plan discussed with: Patient JACKLYN OLMEDO MD January 17, 2025 10:10
[2025-01-17] MEDS: METOPROLOL TARTRATE 1MG/1ML-5ML VIAL IV SCH (10:16)
[2025-01-17] MEDS: AMIODARONE 360mg/200mL PREMIX 200 ML IV SCH (10:58)
[2025-01-17] MEDS ORDERED: METOPROLOL TARTRATE 1MG/1ML-5ML VIAL IV SCH (12:00)
[2025-01-17] MEDS: FUROSEMIDE 40 MG/4 ML VIAL IV ONE (12:27)
--- NOTE | 2025-01-17 15:27 | DVHPNRES ---
Progress Note Date Seen: January 17, 2025 Resident Creating Document: SID GALLARDO RESIDENT Has the PT tested + for MRSA If YES, has PT been informed?: No Medical Necessity Reason Pt with a Central, PICC or Fol: No Medical Necessity Reason History of Present Illness The patient is a 74-year-old male with past medical history of DM, AFib, hypertension, anemia, and hyperlipidemia who presented to [facility] ED with complaint of near syncopal episode. Patient reports having severe epigastric pain, radiating to the chest, mid, and lower abdomen, sharp in nature, associated shortness of breaths, nausea, getting worse that prompted this visit. Patient was seen and evaluated in the ED, laboratory data shows WBC 9.7, hemoglobin 10.0, hematocrit 33.9, platelets 421, sodium 138, potassium 4.1, BUN 18, creatinine 1.02, glucose 210, BNP 72.67, lipase 54, troponin 4, lactic acid 2.6, blood pressure 80/42 trending up to 117/47, heart rate 63, temperature 97.2 F, O2 saturation 92% on oxygen. Abdomen/pelvis CT revealing status post gastric bypass with 40 of free adjacent to the stomach concerning for perforation at the surgical incision sites from the bypass versus due to ulceration of the stomach; there is moderate amount of free air along the midline anterior abdomen adjacent to the transverse colon; critical findings pneumoperitoneum. Patient was started on on breathing treatment, given IV Solu- Medrol, please see medication orders section in the computer. On my assessment, patient denied chest pain, no headache, no dizziness, currently on oxygen, no diaphoresis, no nausea, no vomiting, no fever, no chills. Patient was admitted for further evaluation and medical management. Past Medical History: AFIB, High Lipids, HTN, Anemia, DM Past Surgical History: Gastric bypass, Right knee surgery, Cervical and lumbar laminectomies Family History: Reviewed, noncontributory to the management of this case. Past Social History:The patient lives at home, denies smoking, alcohol or illicit drugs abuse. 01/16/2025 Patient is seen and examined today. He has NG tube in place draining bile substances from his abdomen. He is currently being managed for pneumoperitoneum. CT abdomen this am showed Compared to previous exam slight decrease in the amount of free air in the peritoneal cavity. There is no free fluid.There is increasing effusion and consolidation in the left lung base. pneumoperitoneum is improving. Surgery is following and recommended conservative management. Patient denied any fever, chills but he is normally on 2L of xygen at home. He has a history of COPD. He actually had a bowel movement this morning. We will continue to monitor patient closely replace electrolytes as needed and continue conservative management as recommended by the surgical team. 01/17 Seen and examined today at the bedside. He was on BiPAP at the time of my visit. Of note patient was restless overnight he was agitated restless pulled out his NG tube that had to be replaced. ABG at the time done showed patient was in respiratory acidosis he was then started on BiPAP and and he was also noted to have a he has already had AFib RVR so patient was started on amiodarone. This morning, patient was started on metoprolol IV. He is doing a lot better right now currently on BiPAP. A repeat ABG showed improved PH. Patient was seen by the surgeon as well. Surgeon recommended continued conservative management. Subjective Review of Systems Constitutional: Distress today. on BIPAP HEENT: nodding to questions Cardiovascular: tachycardia Respiratory:shortness of breath, GI: abdominal pain, NG tube in place : Marquez in place Endocrine: unable to asses Jose:unable assess Musculoskeletal: joint pains, wheelchair bound Psych: unable to assess Objective vital signs Vital Sign Date Time Temp Pulse Resp B/P (MAP) Pulse Ox O2 Delivery O2 Flow Rate FiO2 01/17/25 14:51 102 20 150/84 01/17/25 12:49 98 Facial BiPAP Mask 30 01/17/25 12:36 3 01/17/25 09:00 97.7 97.7 Total Intake and Output 01/16/25 01/16/25 01/17/25 15:00 23:00 07:00 Intake Total 220 ml 650 ml 1286 ml Output Total 150 ml 900 ml 1100 ml Balance 70 ml -250 ml 186 ml medications Current Medications Medications Dose Ordered Sig/Vincent Route Start Time Stop Time Status Last Admin Dose Admin Warfarin Sodium RX PROTOCOL PER PHARMACY PO 01/15/25 01:45 Cancel Albuterol 2.5 mg Q4HPRN PRN NEB 01/15/25 01:45 01/17/25 12:35 2.5 MG Ipratropium [place] 0.5 mg Q4HPRN PRN NEB 01/15/25 01:45 01/17/25 12:35 0.5 MG Methylprednisolone Sodium Succinate 40 mg BID IV 01/15/25 10:00 01/17/25 09:02 40 MG Acetaminophen/ Hydrocodone Bitart 1 tab Q4HP PRN PO 01/15/25 01:45 Hold 01/15/25 02:57 1 TAB Ondansetron HCl 4 mg Q4HP PRN IV 01/15/25 01:45 01/17/25 14:20 4 MG Docusate Sodium 100 mg BIDPRN PRN PO 01/15/25 01:45 Acetaminophen 650 mg Q6HP PRN PO 01/15/25 01:45 Nitroglycerin 0.4 mg Q5MINP PRN SL 01/15/25 01:45 Morphine Sulfate 2 mg Q30M PRN IV 01/15/25 01:45 01/17/25 01:31 2 MG Piperacillin Sod/ Tazobactam Sod 100 ml @ 25 mls/hr Q8HR IV 01/15/25 06:00 01/17/25 14:21 25 MLS/HR Pantoprazole Sodium 40 mg BID IV 01/15/25 10:00 01/17/25 09:02 40 MG Morphine Sulfate 2 mg Q4HPRN PRN IV 01/15/25 09:15 01/17/25 14:21 2 MG Morphine Sulfate 4 mg Q4HPRN PRN IV 01/15/25 09:15 Amino Acids 0 ml @ 0 mls/hr PER PHARMACY IV 01/16/25 13:15 Azithromycin 250 ml @ 125 mls/hr DAILY IV 01/17/25 10:00 01/17/25 09:57 125 MLS/HR Sodium Chloride 10 ml QSHIFT@10,22 IV 01/16/25 22:00 01/17/25 09:13 10 ML Amino Acids/ Electrolytes/ Dextrose 1,000 ml @ 41 mls/hr DAILY@2200 IV 01/16/25 22:00 01/17/25 21:59 01/16/25 21:06 41 MLS/HR Hydralazine HCl 10 mg Q6HP PRN IV 01/16/25 20:00 Metoprolol Succinate 50 mg DAILY PO 01/17/25 10:00 Enoxaparin Sodium 120 mg Q12HR SC 01/17/25 10:00 01/17/25 09:04 120 MG Vancomycin HCl 0 ml @ 0 mls/hr UD IV 01/16/25 23:00 Lorazepam 0.5 mg Q6HP PRN IV 01/17/25 07:45 Metoprolol Tartrate 1.25 mg Q6HR IV 01/17/25 09:45 Hold 01/17/25 10:16 1.25 MG Diagnostic Test (Pha) 1 strip Q6HR 01/17/25 18:00 Insulin Human Regular FOLLOW SLIDING SCALE Q6HR SC 01/17/25 18:00 Dextrose 50 ml UD IV 01/17/25 18:00 Fat Emulsion Intravenous 50 ml/ Potassium Phosphate 40 meq/ Calcium Gluconate 2.3 meq/Magnesium Sulfate 4 meq/ Multivitamins 10 ml/Chromium/ Copper/Manganese/ Zinc 1 ml/Insulin Human Regular 10 units/Amino Acids/ Dextrose/Purified Water 1,076.1371 ml @ 45 mls/hr [id number] IV 01/17/25 22:00 01/18/25 21:59 Vancomycin HCl 300 ml @ 200 mls/hr Q16H IV 01/17/25 18:00 Examination General Appearance: Alert, Oriented X3, Cooperative, Mild respiratory distress HEENT: Atraumatic, PERRLA, EOMI, Mucous membrane moist/pink Respiratory: On BIPAP Cardiovascular: tachycardia Abdominal: distention, tenderness, low bowel sounds present, no scars noted Extremities:no edema Skin: No rashes, No breakdown, No significant lesion Neuro: unable to assess Psych/Mental Status: stable laboratory and microbiology Laboratory Tests 01/17/25 08:10 Test 01/17/25 08:10 Range/Units Serum Glucose 238 H 74-106 mg/dL Microbiology Date/Time Source Procedure Growth Status 01/15/25 00:28 Blood Blood Culture - Preliminary NO GROWTH AFTER 48 HOURS OF INCUBATION. Resulted Problem List/Assessment/Plan Problem List/Assessment/Plan Assessment and plan Near syncope likely due to below Acute epigastric abdominal pain, intractable Perforated viscus and pneumoperitoneum, with history of gastric bypass, Perforated viscus with small to moderate amount of pneumoperitoneum but clinically improving. Lactic acidosis, resolved Sepsis due to above Acute respiratory distress Diabetes with hyperglycemia AFib on Coumadin Tachypnea Lipase elevated, mild Leukocytosis AFib RVR OBESITY GRADE 3, BMI 40.2 Plan Continue Antibiotics Zosyn Continue Azithromycin* Solu-Medrol for breathing, Solu-Medrol 40 IV b.i.d. Protonix 40 IV b.i.d. IV fluids 100 cc/hour D/C NPO Surgery following: conservative management Blood cultures pending Sliding scale insulin moderate a.c. HS DVT prophylaxis GI prophylaxis Full code Care discussed for more than a 18 minute: Full code Case and plan discussed with Dr. Novoa Plan discussed with: Patient My Orders My Orders Orders - SID GALLARDO Procedure Category Date Status Time Electrocardigram EKG 01/16/25 Logged 17:34 Hydralazine Injection PHA 01/16/25 In Process (Apresoline Inject 20:00 Metoprolol Xl PHA 01/17/25 In Process Succinate (Toprol Xl) 10:00 Enoxaparin Sodium PHA 01/17/25 In Process (Lovenox) 10:00 Vancomycin Per PHA 01/16/25 In Process Pharmacy 23:00 Lorazepam 2mg/Ml Inj PHA 01/17/25 In Process (Ativan Inj) 07:45 Communication Order ORDERS 01/17/25 Transmitted 09:26 Metoprolol Inj PHA 01/17/25 In Process (Lopressor) 09:45 Vancomycin 1.5gm/300ml PHA 01/17/25 In Process 18:00 Vancomycin,Trough LAB 01/19/25 Verified 01:00 Vancomycin Per [facility] 01/19/25 In Process Pharmacy Protoc 02:00 Dietary Evaluation Review Comments: 1. Advance TPN to meet at least 75% estimated needs 2. Contineu current POC Expected Outcomes/Goals: To meet >75% estimated needs Fu 2-3 days Date of Service: January 17, 2025 Billing Provider: POOJA BUSTOS MD Common Visit Codes: [id number] INP/OBS CARE(HIGH) SID GALLARDO RESIDENT January 17, 2025 15:27 POOJA BUSTOS MD Jan 30, 2025 09:45
[2025-01-17] MEDS: POTASSIUM PHOSPHATE 22 MEQ in SODIUM CHL 0.9% 100 ML IV ONE (17:24)
[2025-01-17] MEDS: VANCOMYCIN 1.5GM/300ML 300 ML IV SCH (17:56)
[2025-01-17] MEDS ORDERED: DEXTROSE (50%) 50ML SYRG IV SCH (18:00)
[2025-01-17] MEDS: ACCU-CHEK COMFORT CURVE STRIP VI SCH (18:15)
[2025-01-17] MEDS: InsuLIN REG 1unit/0.01ml Soln (100units/ml) SC SCH (18:27)
[2025-01-17] MEDS: TPN PER PHARMACY IV NR (21:51)
[2025-01-18] VITALS (13 sets, daily range): BP systolic 115–156; BP diastolic 57–91; PULSE 100–107; RESP 17–24; TEMP 97.5–98; O2SAT 78–99
[2025-01-18 06:30] LABS: Anion Gap 9 (5-15)
[2025-01-18 06:56] LABS: Bilirubin, Total 0.2 mg/dL (0.2-1.0); Phosphorus 6.6 mg/dL (2.4-5.1)
[2025-01-18 07:04] LABS: Alanine Aminotransferase 11 U/L (7-40); Albumin 3.8 g/dL (3.2-4.8); Alkaline Phosphatase 55 U/L (46-116); Aspartate Aminotransferase 15 U/L (13-40); BUN/Creatinine Ratio 24.6 (10.0-20.0); Calcium 8.8 mg/dL (8.7-10.4); Carbon Dioxide 25 mmol/L (20-31); Chloride 97 mmol/L (98-107); Glucose 932 mg/dL (74-106); Magnesium 2.4 mg/dL (1.6-2.6); Potassium 5.5 mmol/L (3.5-5.1); Sodium 131 mmol/L (136-145); Total Protein 6.4 g/dL (5.7-8.2)
[2025-01-18 07:05] LABS: Blood Urea Nitrogen 29 mg/dL (9-23)
[2025-01-18 07:42] LABS: Triglycerides 293 mg/dL (< 150)
[2025-01-18] MEDS: SODIUM ZIRCONIUM CYCL 10 GM PAK PO ONE (08:00)
[2025-01-18 08:18] LABS: Basophils # (auto) 0 10 ^3/uL (0-0.2); Eosinophils # (auto) 0 10 ^3/uL (0-0.8); Hemoglobin 8.9 g/dL (13.5-17.5); Lymphocytes # (auto) 0.4 10 ^3/uL (0.4-5.4); Monocytes # (auto) 0.6 10 ^3/uL (0-1.3)
[2025-01-18 08:20] LABS: Basophils % (auto) 0.1 % (0.0-2.0); Hematocrit 32.6 % (41.0-53.0); Lymphocytes % (auto) 3.3 % (10.0-50.0); Mean Corpuscular Hemoglobin 22.2 pg (28.0-32.0); Mean Corpuscular Hgb Conc. 27.3 g/dL (32.0-36.0); Mean Corpuscular Volume 81.5 fL (80.0-100.0); Monocytes % (auto) 4.7 % (0.0-12.0); Neutrophils # (auto) 10.9 10 ^3/uL (1.6-8.6); Neutrophils % (auto) 91.9 % (37.0-80.0); Nucleated Red Blood Cells % 0.2 %; Platelet Count (auto) 366 10^3/uL (140-450); Red Blood Cells 3.99 10^6/uL (4.5-5.90); Red Cell Distribution Width 19.2 % (11.8-14.3); White Blood Cell 11.8 10^3/uL (4.4-10.8)
--- NOTE | 2025-01-18 09:52 | DVH ---
XY UGI WITH GASTROGRAFIN, HISTORY: perforated viscus prob PUD COMPARISON: None PROCEDURE: A intake man radiograph was obtained prior to the procedure. Gastrografin administered orally, and radiographs were obtained under intermittent fluoroscopic observation. Total fluoroscopic time w as 0.7 minutes. FINDINGS: The esophagus was normal in caliber with no stricture, filling defect or wall irregularity demonstrat ed. Normal esophageal peristalsis was observed. There was prompt passage of contrast through a normal appearing gastroesophageal junction. The stomac h was contracted. Contrast extravasation is seen. IMPRESSION: Contrast extravasation is probable adjacent to the stomach. Patient sent to CT for further imaging.
--- NOTE | 2025-01-18 10:09 | DVH ---
CT CT AB PEL WITH ORAL CON ONLY INDICATION: S/P UGI, PUD EXAM DATE: 01/18/2025 09:27 AM COMPARISON: CT CT AB PEL WO CON-NO ORAL OR IV on DOS: 01/16/25, CT CT AB PEL WO CON-NO ORAL OR IV on D OS: 01/15/25 RADIATION DOSE: CTDIvol: 26.21 mGy, DLP: 1520.22 mGy*cm PROCEDURE: Helical CT images were obtained of the abdomen and pelvis without IV contrast Sagittal and coronal reconstructions are provided. ORAL CONTRAST: yes ADDITIONAL IMAGES / REFORMATS: None All CT scans at this medical facility are performed using dose modulation techniques as appropriate to a per formed exam including the following: Automated exposure control was utilized; adjustment of the MA an d/or KV according to patient size; and use of iterative reconstruction technique. FINDINGS: LUNG BASE: Bibasilar atelectasis and small left pleural effusion. LIVER: Normal. GALLBLADDER AND BILIARY TREE: Deja clips. No intra- or extrahepatic biliary ductal dilation. PANCREAS: Normal. SPLEEN: Normal. BOWEL: Oral contrast material visualized in the small bowel with extravasation of oral contrast mater ial to the peritoneum near the gastric fundus and contrast pooling adjacent to the spleen. Normal ap pendix. ADRENALS: Normal. KIDNEYS AND URETER: 10.0 cm left kidney cyst. BLADDER: Marquez in bladder. REPRODUCTIVE ORGANS: Normal. LYMPH NODES:No lymphadenopathy. PERITONEUM: No ascites or free air. No other fluid collection. VESSELS: Scattered atherosclerotic calcifications are noted. RETROPERITONEUM: Normal. ABDOMINAL WALL: Normal. BONES: Scattered osseous degenerative changes are noted. IMPRESSION: Oral contrast material visualized in the small bowel with extravasation of oral contrast material to the peritoneum near the gastric fundus and contrast pooling adjacent to the spleen. This can be seen with perforation of the stomach.
--- NOTE | 2025-01-18 11:45 | DVH ---
Exam: US US GUIDED VASCULAR ACCESS Clinical History: PICC LINE INSERTION Comparison: None Findings: Targeted sonographic evaluation of the upper arm vein was obtained utilizing grayscale and color Dopp ler imaging. IMPRESSION: Sonographic assistance for picc placement. Please refer to procedural report for detailed findings.
[2025-01-18] MEDS ORDERED: methylPREDNISolone SOD SUCC 40 MG/ML VL IV SCH (12:00)
[2025-01-18 12:38] LABS: Alanine Aminotransferase 17 U/L (7-40); Albumin 4.2 g/dL (3.2-4.8); Alkaline Phosphatase 56 U/L (46-116); Anion Gap 8 (5-15); Aspartate Aminotransferase 19 U/L (13-40); BUN/Creatinine Ratio 30.4 (10.0-20.0); Bilirubin, Total 0.2 mg/dL (0.2-1.0); Blood Urea Nitrogen 28 mg/dL (9-23); Calcium 9.8 mg/dL (8.7-10.4); Carbon Dioxide 27 mmol/L (20-31); Chloride 106 mmol/L (98-107); Glucose 235 mg/dL (74-106); Potassium 3.7 mmol/L (3.5-5.1); Sodium 141 mmol/L (136-145); Total Protein 6.9 g/dL (5.7-8.2)
[2025-01-18 13:05] LABS: Magnesium 2.1 mg/dL (1.6-2.6)
[2025-01-18 13:07] LABS: Phosphorus 1.6 mg/dL (2.4-5.1)
--- NOTE | 2025-01-18 15:22 | DVHPNRES ---
Progress Note Date Seen: January 18, 2025 Resident Creating Document: SID GALLARDO RESIDENT Has the PT tested + for MRSA If YES, has PT been informed?: No Medical Necessity Reason Pt with a Central, PICC or Fol: No Medical Necessity Reason History of Present Illness The patient is a 74-year-old male with past medical history of DM, AFib, hypertension, anemia, and hyperlipidemia who presented to [facility] ED with complaint of near syncopal episode. Patient reports having severe epigastric pain, radiating to the chest, mid, and lower abdomen, sharp in nature, associated shortness of breaths, nausea, getting worse that prompted this visit. Patient was seen and evaluated in the ED, laboratory data shows WBC 9.7, hemoglobin 10.0, hematocrit 33.9, platelets 421, sodium 138, potassium 4.1, BUN 18, creatinine 1.02, glucose 210, BNP 72.67, lipase 54, troponin 4, lactic acid 2.6, blood pressure 80/42 trending up to 117/47, heart rate 63, temperature 97.2 F, O2 saturation 92% on oxygen. Abdomen/pelvis CT revealing status post gastric bypass with 40 of free adjacent to the stomach concerning for perforation at the surgical incision sites from the bypass versus due to ulceration of the stomach; there is moderate amount of free air along the midline anterior abdomen adjacent to the transverse colon; critical findings pneumoperitoneum. Patient was started on on breathing treatment, given IV Solu- Medrol, please see medication orders section in the computer. On my assessment, patient denied chest pain, no headache, no dizziness, currently on oxygen, no diaphoresis, no nausea, no vomiting, no fever, no chills. Patient was admitted for further evaluation and medical management. Past Medical History: AFIB, High Lipids, HTN, Anemia, DM Past Surgical History: Gastric bypass, Right knee surgery, Cervical and lumbar laminectomies Family History: Reviewed, noncontributory to the management of this case. Past Social History:The patient lives at home, denies smoking, alcohol or illicit drugs abuse. 01/16/2025 Patient is seen and examined today. He has NG tube in place draining bile substances from his abdomen. He is currently being managed for pneumoperitoneum. CT abdomen this am showed Compared to previous exam slight decrease in the amount of free air in the peritoneal cavity. There is no free fluid.There is increasing effusion and consolidation in the left lung base. pneumoperitoneum is improving. Surgery is following and recommended conservative management. Patient denied any fever, chills but he is normally on 2L of xygen at home. He has a history of COPD. He actually had a bowel movement this morning. We will continue to monitor patient closely replace electrolytes as needed and continue conservative management as recommended by the surgical team. 01/17 Seen and examined today at the bedside. He was on BiPAP at the time of my visit. Of note patient was restless overnight he was agitated restless pulled out his NG tube that had to be replaced. ABG at the time done showed patient was in respiratory acidosis he was then started on BiPAP and and he was also noted to have a he has already had AFib RVR so patient was started on amiodarone. This morning, patient was started on metoprolol IV. He is doing a lot better right now currently on BiPAP. A repeat ABG showed improved PH. Patient was seen by the surgeon as well. Surgeon recommended continued conservative management. 01/18 Patient was seen and examined today. He is much better so on the nasal cannula. Patient sent that the abdominal pain is better and had bowel movement twice today. He is on on TPN. GI series today shows Contrast extravasation is probable adjacent to the stomach. Patient sent to CT for further imaging. CT abdomen showed Oral contrast material visualized in the small bowel with extravasation of oral contrast material to the peritoneum near the gastric fundus and contrast pooling adjacent to the spleen. This can be seen with perforation of the stomach. I called surgery and gave him an update regarding the new finding on CT abdomen and Gastrografin and the let us know the plan. Pending the response. Subjective Review of Systems Constitutional: Denies fever no chills no feeling of malaise HEENT: Denies headache, ear pain, ear discharges, conjunctivitis, nasal discharge throat pain Cardiovascular: Denies chest pain, palpitation, orthopnea, PND, or pedal edema Respiratory: shortness of breath on NC; No cough, sputum production, hemoptysis, GI: improving abdominal pain, nausea, vomiting, diarrhea, hematemesis, hematochezia, : Denies frequency, urgency, hematuria, Endocrine: has DM, Feeling of hot flashes, Jose: Denies easy bruising, bleeding disorders, epistaxis Musculoskeletal: Noted Joint pains, muscle aches Psych: No evidence of depression, aniyah, suicidal ideation Objective vital signs Vital Sign Date Time Temp Pulse Resp B/P (MAP) Pulse Ox O2 Delivery O2 Flow Rate FiO2 01/18/25 13:01 97.7 104 19 144/72 (96) 94 97.7 01/18/25 10:12 Room Air* 0 21 Total Intake and Output 01/17/25 01/17/25 01/18/25 15:00 23:00 07:00 Intake Total 316.4 ml 41.6 ml 832.2 ml Output Total 2800 ml 2100 ml Balance 316.4 ml -2758.4 ml -1267.8 ml medications Current Medications Medications Dose Ordered Sig/Vincent Route Start Time Stop Time Status Last Admin Dose Admin Warfarin Sodium RX PROTOCOL PER PHARMACY PO 01/15/25 01:45 Cancel Albuterol 2.5 mg Q4HPRN PRN NEB 01/15/25 01:45 01/18/25 10:12 2.5 MG Ipratropium [place] 0.5 mg Q4HPRN PRN NEB 01/15/25 01:45 01/18/25 10:12 0.5 MG Acetaminophen/ Hydrocodone Bitart 1 tab Q4HP PRN PO 01/15/25 01:45 Hold 01/15/25 02:57 1 TAB Ondansetron HCl 4 mg Q4HP PRN IV 01/15/25 01:45 01/18/25 10:48 4 MG Docusate Sodium 100 mg BIDPRN PRN PO 01/15/25 01:45 Acetaminophen 650 mg Q6HP PRN PO 01/15/25 01:45 Nitroglycerin 0.4 mg Q5MINP PRN SL 01/15/25 01:45 Morphine Sulfate 2 mg Q30M PRN IV 01/15/25 01:45 01/18/25 10:49 2 MG Piperacillin Sod/ Tazobactam Sod 100 ml @ 25 mls/hr Q8HR IV 01/15/25 06:00 01/18/25 04:59 25 MLS/HR Pantoprazole Sodium 40 mg BID IV 01/15/25 10:00 01/18/25 11:20 40 MG Morphine Sulfate 2 mg Q4HPRN PRN IV 01/15/25 09:15 01/18/25 03:30 2 MG Morphine Sulfate 4 mg Q4HPRN PRN IV 01/15/25 09:15 Amino Acids 0 ml @ 0 mls/hr PER PHARMACY IV 01/16/25 13:15 Azithromycin 250 ml @ 125 mls/hr DAILY IV 01/17/25 10:00 01/18/25 10:00 125 MLS/HR Sodium Chloride 10 ml QSHIFT@10,22 IV 01/16/25 22:00 01/17/25 21:23 10 ML Hydralazine HCl 10 mg Q6HP PRN IV 01/16/25 20:00 Metoprolol Succinate 50 mg DAILY PO 01/17/25 10:00 Enoxaparin Sodium 120 mg Q12HR SC 01/17/25 10:00 01/18/25 11:21 100 MG Vancomycin HCl 0 ml @ 0 mls/hr UD IV 01/16/25 23:00 Lorazepam 0.5 mg Q6HP PRN IV 01/17/25 07:45 Metoprolol Tartrate 1.25 mg Q6HR IV 01/17/25 09:45 Hold 01/17/25 10:16 1.25 MG Diagnostic Test (Pha) 1 strip Q6HR 01/17/25 18:00 01/18/25 14:18 1 STRIP Insulin Human Regular FOLLOW SLIDING SCALE Q6HR SC 01/17/25 18:00 01/18/25 14:27 8 UNITS Dextrose 50 ml UD IV 01/17/25 18:00 Fat Emulsion Intravenous 50 ml/ Potassium Phosphate 40 meq/ Calcium Gluconate 2.3 meq/Magnesium Sulfate 4 meq/ Multivitamins 10 ml/Chromium/ Copper/Manganese/ Zinc 1 ml/Insulin Human Regular 10 units/Amino Acids/ Dextrose/Purified Water 1,076.1371 ml @ 45 mls/hr [id number] IV 01/17/25 22:00 01/18/25 21:59 01/17/25 21:51 45 MLS/HR Vancomycin HCl 300 ml @ 200 mls/hr Q16H IV 01/17/25 18:00 01/18/25 11:18 200 MLS/HR Methylprednisolone Sodium Succinate 40 mg DAILY IV 01/19/25 10:00 Fat Emulsion Intravenous 50 ml/ Potassium Phosphate 44 meq/ Magnesium Sulfate 10 meq/ Multivitamins 10 ml/Chromium/ Copper/Manganese/ Zinc 1 ml/Insulin Human Regular 20 units/Amino Acids/ Dextrose 1,073.7 ml @ 45 mls/hr [id number] IV 01/18/25 22:00 01/19/25 21:59 Examination General Appearance: Alert, Oriented X3, Cooperative, No acute distress HEENT: Atraumatic, PERRLA, EOMI, Mucous membrane moist/pink Respiratory: Clear to auscultation, Normal air movement Cardiovascular: Regular rate, Normal S1, Normal S2, No murmurs, no chest wall tenderness Abdominal: Large abdomen distention, Mild tenderness, bowel sounds present, no scars noted Extremities: No clubbing, No cyanosis, No edema, Normal pulses, No tenderness/swelling Skin: No rashes, No breakdown, No significant lesion Neuro: Normal gait, Normal speech, Strength at 5/5 X4 ext, Normal tone, Sensation intact, Cranial nerves 3-12 NL, Reflexes 2+ Psych/Mental Status: Mental status NL, Mood NL laboratory and microbiology Laboratory Tests 01/18/25 12:00 01/18/25 05:10 Test 01/18/25 12:00 Range/Units Serum Glucose 235 #H 74-106 mg/dL Microbiology Date/Time Source Procedure Growth Status 01/15/25 00:28 Blood Blood Culture - Preliminary NO GROWTH AFTER 72 HOURS OF INCUBATION. Resulted Problem List/Assessment/Plan Problem List/Assessment/Plan Assessment and plan Near syncope likely due to below Acute epigastric abdominal pain, intractable Perforated viscus and pneumoperitoneum, with history of gastric bypass, Perforated viscus with small to moderate amount of pneumoperitoneum but clinically improving. Lactic acidosis, resolved Sepsis due to above Acute respiratory distress Diabetes with hyperglycemia AFib on Coumadin Tachypnea Lipase elevated, mild Leukocytosis AFib RVR OBESITY GRADE 3, BMI 40.2 Leukocytosis Hypophosphatemia Plan Continue Antibiotics Zosyn Continue Azithromycin* Solu-Medrol for breathing, Solu-Medrol 40 IV daily Protonix 40 IV b.i.d. IV fluids 100 cc/hour D/C NPO Surgery following: conservative management Blood cultures pending Sliding scale insulin moderate a.c. HS DVT prophylaxis GI prophylaxis Full code LASIX 40 mg once today Repeat BMP for tomorrow BiPAP at night NG tube replaced gently Pending surgical plan Gi series: Contrast extravasation is probable adjacent to the stomach. Patient sent to CT for further imaging. CT abdomen: Oral contrast material visualized in the small bowel with extravasation of oral contrast material to the peritoneum near the gastric fundus and contrast pooling adjacent to the spleen. This can be seen with perforation of the stomach. Care discussed for more than a 18 minute: Full code Case and plan discussed with Dr. Novoa Plan discussed with: Patient My Orders My Orders Orders - SID GALLARDO RESIDENT Procedure Category Date Status Time Vancomycin 1.5gm/300ml PHA 01/17/25 In Process 18:00 Vancomycin,Trough LAB 01/19/25 Verified 01:00 Vancomycin Per [facility] 01/19/25 In Process Pharmacy Protoc 02:00 Methylprednisolone PHA 01/19/25 In Process Sod Succ (Solu Medrol 10:00 Dietary Evaluation Review Comments: 1. Advance TPN to meet at least 75% estimated needs 2. Contineu current POC Expected Outcomes/Goals: To meet >75% estimated needs Fu 2-3 days Date of Service: January 18, 2025 Billing Provider: POOJA BUSTOS MD Common Visit Codes: [id number] INP/OBS CARE(HIGH) SID GALLARDO RESIDENT January 18, 2025 15:22 POOJA BUSTOS MD Jan 30, 2025 09:48
[2025-01-18] MEDS: FUROSEMIDE 40 MG/4 ML VIAL IV ONE (19:06)
[2025-01-18] MEDS: POTASSIUM PHOSPHATE 44 MEQ in D5W 5% 250 ML IV ONE (20:29)
[2025-01-18] MEDS: TPN PER PHARMACY IV NR (22:04)
[2025-01-19] VITALS (13 sets, daily range): BP systolic 103–166; BP diastolic 58–99; PULSE 88–108; RESP 17–22; TEMP 97.5–98.6; O2SAT 93–100
--- NOTE | 2025-01-19 01:46 | DVH ---
EXAM: XY CHEST XRAY 1 VIEW CLINICAL HISTORY: NG tube placement TECHNIQUE: Single AP view of the chest WID: COMPARISON: XY CHEST XRAY 1 VIEW on DOS: 01/17/25 FINDINGS: Lines and tubes: A gastric tube is in place with the tip projecting over the gastric fundus. There is a right PICC with the tip projecting over the low SVC. There are interbody spacers in the lower cerv ical spine. Chest: Mild cardiomegaly. Mild prominence of the central pulmonary vasculature. Small left pleural effusion. No pneumothorax. The osseous structures are grossly intact. There is free air beneath the hemidiaphragms. IMPRESSION: 1. Free air beneath the hemidiaphragms concordant with known pneumoperitoneum. 2. Small left pleural effusion 3. Mild cardiomegaly and mild prominence of the central pulmonary vasculature.
[2025-01-19] MEDS: SODIUM PHOSPHATES 20 MEQ in SODIUM CHL 0.9% 100 ML IV ONE (03:25)
[2025-01-19 06:28] LABS: Alanine Aminotransferase 16 U/L (7-40); Albumin 4.1 g/dL (3.2-4.8); Alkaline Phosphatase 59 U/L (46-116); Anion Gap 9 (5-15); Aspartate Aminotransferase 14 U/L (13-40); BUN/Creatinine Ratio 31.2 (10.0-20.0); Carbon Dioxide 30 mmol/L (20-31); Chloride 103 mmol/L (98-107); Magnesium 2.1 mg/dL (1.6-2.6); Phosphorus 2.8 mg/dL (2.4-5.1); Potassium 3.7 mmol/L (3.5-5.1); Sodium 142 mmol/L (136-145); Total Protein 6.8 g/dL (5.7-8.2)
[2025-01-19 06:34] LABS: Bilirubin, Total 0.2 mg/dL (0.2-1.0); Blood Urea Nitrogen 29 mg/dL (9-23); Glucose 233 mg/dL (74-106)
[2025-01-19 06:47] LABS: Basophils # (auto) 0 10 ^3/uL (0-0.2); Eosinophils # (auto) 0 10 ^3/uL (0-0.8); Hemoglobin 9.9 g/dL (13.5-17.5)
[2025-01-19 06:52] LABS: Basophils % (auto) 0.3 % (0.0-2.0); Lymphocytes # (auto) 0.6 10 ^3/uL (0.4-5.4); Lymphocytes % (auto) 4.5 % (10.0-50.0); Mean Corpuscular Hgb Conc. 30.2 g/dL (32.0-36.0); Mean Corpuscular Volume 72.9 fL (80.0-100.0); Monocytes # (auto) 1.3 10 ^3/uL (0-1.3); Monocytes % (auto) 10.1 % (0.0-12.0); Neutrophils # (auto) 11.1 10 ^3/uL (1.6-8.6); Neutrophils % (auto) 85.1 % (37.0-80.0); Nucleated Red Blood Cells % 0.1 %; Platelet Count (auto) 405 10^3/uL (140-450); Red Blood Cells 4.52 10^6/uL (4.5-5.90); Red Cell Distribution Width 18.3 % (11.8-14.3)
--- NOTE | 2025-01-19 07:57 | ECG ---
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
--- NOTE | 2025-01-19 07:57 | ECG ---
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
--- NOTE | 2025-01-19 07:58 | ECG ---
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
--- NOTE | 2025-01-19 08:15 | DVHPN2 ---
Progress Note Date Seen: January 19, 2025 Has the PT tested + for MRSA If YES, has PT been informed?: No Medical Necessity Reason Pt with a Central, PICC or Fol: No Objective vital signs Vital Sign Date Time Temp Pulse Resp B/P (MAP) Pulse Ox O2 Delivery O2 Flow Rate FiO2 01/19/25 06:30 101 17 123/68 01/19/25 05:00 98.5 96 98.5 01/18/25 22:44 Nasal Cannula* 3 32 Total Intake and Output 01/18/25 01/18/25 01/19/25 15:00 23:00 07:00 Intake Total 600 ml 100 ml 1839.2 ml Output Total 2601 ml 4150 ml Balance 600 ml -2501 ml -2310.8 ml medications Current Medications Medications Dose Ordered Sig/Vincent Route Start Time Stop Time Status Last Admin Dose Admin Warfarin Sodium RX PROTOCOL PER PHARMACY PO 01/15/25 01:45 Cancel Albuterol 2.5 mg Q4HPRN PRN NEB 01/15/25 01:45 01/18/25 10:12 2.5 MG Ipratropium [place] 0.5 mg Q4HPRN PRN NEB 01/15/25 01:45 01/18/25 10:12 0.5 MG Acetaminophen/ Hydrocodone Bitart 1 tab Q4HP PRN PO 01/15/25 01:45 Hold 01/15/25 02:57 1 TAB Ondansetron HCl 4 mg Q4HP PRN IV 01/15/25 01:45 01/19/25 05:50 4 MG Docusate Sodium 100 mg BIDPRN PRN PO 01/15/25 01:45 Acetaminophen 650 mg Q6HP PRN PO 01/15/25 01:45 Nitroglycerin 0.4 mg Q5MINP PRN SL 01/15/25 01:45 Morphine Sulfate 2 mg Q30M PRN IV 01/15/25 01:45 01/18/25 10:49 2 MG Piperacillin Sod/ Tazobactam Sod 100 ml @ 25 mls/hr Q8HR IV 01/15/25 06:00 01/19/25 05:50 25 MLS/HR Pantoprazole Sodium 40 mg BID IV 01/15/25 10:00 01/18/25 21:57 40 MG Morphine Sulfate 2 mg Q4HPRN PRN IV 01/15/25 09:15 01/19/25 05:49 2 MG Morphine Sulfate 4 mg Q4HPRN PRN IV 01/15/25 09:15 Amino Acids 0 ml @ 0 mls/hr PER PHARMACY IV 01/16/25 13:15 Azithromycin 250 ml @ 125 mls/hr DAILY IV 01/17/25 10:00 01/18/25 10:00 125 MLS/HR Sodium Chloride 10 ml QSHIFT@10,22 IV 01/16/25 22:00 01/18/25 21:57 10 ML Hydralazine HCl 10 mg Q6HP PRN IV 01/16/25 20:00 Metoprolol Succinate 50 mg DAILY PO 01/17/25 10:00 Enoxaparin Sodium 120 mg Q12HR SC 01/17/25 10:00 01/18/25 21:57 120 MG Vancomycin HCl 0 ml @ 0 mls/hr UD IV 01/16/25 23:00 Lorazepam 0.5 mg Q6HP PRN IV 01/17/25 07:45 Metoprolol Tartrate 1.25 mg Q6HR IV 01/17/25 09:45 Hold 01/17/25 10:16 1.25 MG Diagnostic Test (Pha) 1 strip Q6HR 01/17/25 18:00 01/19/25 06:03 1 STRIP Insulin Human Regular FOLLOW SLIDING SCALE Q6HR SC 01/17/25 18:00 01/19/25 06:14 8 UNITS Dextrose 50 ml UD IV 01/17/25 18:00 Vancomycin HCl 300 ml @ 200 mls/hr Q16H IV 01/17/25 18:00 01/19/25 03:25 200 MLS/HR Methylprednisolone Sodium Succinate 40 mg DAILY IV 01/19/25 10:00 Fat Emulsion Intravenous 50 ml/ Potassium Phosphate 44 meq/ Magnesium Sulfate 10 meq/ Multivitamins 10 ml/Chromium/ Copper/Manganese/ Zinc 1 ml/Insulin Human Regular 20 units/Amino Acids/ Dextrose 1,073.7 ml @ 45 mls/hr [id number] IV 01/18/25 22:00 01/19/25 21:59 01/18/25 22:04 45 MLS/HR laboratory and microbiology Laboratory Tests 01/19/25 05:41 Test 01/19/25 05:41 Range/Units Serum Glucose 233 H 74-106 mg/dL Problem List/Assessment/Plan Problem List/Assessment/Plan 01/19/25 ASSUMING CARE FROM : PATIENT IS A MORBIDLY OBESE MALE WHO HAD A BARIATRIC OPERATION ( GASTRIC BYPASS?) 10 YEARS AGO WHICH LED TO A 100 LB LOSS. 4 DAYS AGO WAS ADMITTED WITH ABDOMINAL PAIN AND WAS FOUND TO HAVE PNEUMOPERITONEUM, THUS FAR HAS BEEN TREATED CONSERVATIVELY, A GASTROGRAFIN UGI X RAY SHOWS PERSISTENT LEAK FORM UPPER GI TRACT (PROBABLY GASTROENTERIC ANASTOMOSIS. HE REMAINS SYMPTOM FREE (PAIN STOPPED ABOUT 24 HOURS AGO), HE IS AFEBRILE, ABDOMEN IS OBESE, NON DISTENDED, NONTENDER, CONTINUE NON OPERATIVE TREATMENT, WITH NGT TO CONTINUOUS SUCTION, STRICT NPO, IV FLUIDS AND NUTRITION. OBSERVE FOR EVIDENCE OF SEPSIS . REPEAT CHEST/ABDOMEN CT SCAN WITH CONTRAST IN 72 HOURS. . Plan discussed with: Patient Dietary Evaluation Review Comments: 1. Advance TPN to meet at least 75% estimated needs 2. Contineu current POC Expected Outcomes/Goals: To meet >75% estimated needs Fu 2-3 days JACK MAURICE MD January 19, 2025 08:15
[2025-01-19] MEDS: methylPREDNISolone SOD SUCC 40 MG/ML VL IV SCH (09:16)
[2025-01-19] MEDS ORDERED: METOPROLOL TARTRATE 1MG/1ML-5ML VIAL IV PRN (13:00)
--- NOTE | 2025-01-19 13:09 | DVHPN2 ---
Subjective Update 01/19- patient here for bowel perf related to gastric bypass.. Surgery is following Dr. Klein. CXR yesterday 01/18 showing air in the diaphragms. And 01/17 Gastrografin swallow showing extravasation from stomach into peritoneal cavity again consistent with bowel perforation. Surgery plan to continue NG tube with intermittent suction, continue NPO, no pushes of meds fluids into NG tube. We will convert all meds to IV. Continuing IV broad-spectrum antibiotics. And surgery wants to repeat CT abdomen with oral contrast? On Monday 01/22. We will continue TPN until then. Via PICC line. Keep patient on tele with close monitoring. Heart rate goal less than 130 with continuous IV amnio and prn IV metoprolol 2.5 q.6h for heart rate more than 130. On,. Blood pressure control with IV hydralazine 10 q.6h for SBP more than 160. Patient had respiratory failure few days ago which is resolving with Solu-Medrol and Lasix and BiPAP. He now has his home CPAP which he was using it nightly. We will stop Solu-Medrol to encourage healing in gastric mucosa. Continuing Protonix IV b.i.d.. Lasix p.r.n. per MD discretion for shortness of Breath/volume overload. Patient was poor candidate for surgery, multiple critical medical issues, poor prognosis, appreciate surgery following. Reviewed: H&P Changes from previous H/P or p: No Changes General: Per HPI Objective Vitals Vital Signs Date Time Temp Pulse Resp B/P (MAP) Pulse Ox O2 Delivery O2 Flow Rate FiO2 01/19/25 10:26 106 18 159/94 01/19/25 09:08 100 01/19/25 09:02 Nasal Cannula 2.0 01/19/25 09:02 28 01/19/25 08:53 97.5 97.5 Intake/Output Intake and Output 01/19/25 07:00 Intake Total 2539.2 ml Output Total 6751 ml Balance -4211.8 ml Intake Oral 600 ml IV Total 1939.2 ml Output Urine Total 6000 ml Stool Total 1 ml Gastric Drainage Total 750 ml # Bowel Movements 1 Exam GEN: Healthy appearing, well-developed, appears in mild acute discomfort, diaphoresis HEENT: NC/AT; MMM. CV: RRR, no m/r/g. LUNGS: CTAB, no w/r/c. ABD: Tender to palpation generalized throughout abdomen, more localized to epigastrium, high-pitched bowel sounds. NG tube inserted with yellow-green bilious output. EXT: skin Warm, well perfused. no rashes. No clubbing, cyanosis, or edema. NEURO: Ambulating with no limitations. No focal deficits. Medications Current Medications Medications Dose Ordered Sig/Vincent Route Start Time Stop Time Status Last Admin Dose Admin Warfarin Sodium RX PROTOCOL PER PHARMACY PO 01/15/25 01:45 Cancel Albuterol 2.5 mg Q4HPRN PRN NEB 01/15/25 01:45 01/19/25 09:02 2.5 MG Ipratropium Smyer 0.5 mg Q4HPRN PRN NEB 01/15/25 01:45 01/19/25 09:02 0.5 MG Acetaminophen/ Hydrocodone Bitart 1 tab Q4HP PRN PO 01/15/25 01:45 Hold 01/15/25 02:57 1 TAB Ondansetron HCl 4 mg Q4HP PRN IV 01/15/25 01:45 01/19/25 10:23 4 MG Docusate Sodium 100 mg BIDPRN PRN PO 01/15/25 01:45 Acetaminophen 650 mg Q6HP PRN PO 01/15/25 01:45 Nitroglycerin 0.4 mg Q5MINP PRN SL 01/15/25 01:45 Morphine Sulfate 2 mg Q30M PRN IV 01/15/25 01:45 01/19/25 10:26 2 MG Piperacillin Sod/ Tazobactam Sod 100 ml @ 25 mls/hr Q8HR IV 01/15/25 06:00 01/19/25 05:50 25 MLS/HR Pantoprazole Sodium 40 mg BID IV 01/15/25 10:00 01/19/25 09:16 40 MG Morphine Sulfate 2 mg Q4HPRN PRN IV 01/15/25 09:15 01/19/25 05:49 2 MG Morphine Sulfate 4 mg Q4HPRN PRN IV 01/15/25 09:15 Amino Acids 0 ml @ 0 mls/hr PER PHARMACY IV 01/16/25 13:15 Azithromycin 250 ml @ 125 mls/hr DAILY IV 01/17/25 10:00 01/19/25 09:15 125 MLS/HR Sodium Chloride 10 ml QSHIFT@10,22 IV 01/16/25 22:00 01/19/25 09:18 10 ML Hydralazine HCl 10 mg Q6HP PRN IV 01/16/25 20:00 Metoprolol Succinate 50 mg DAILY PO 01/17/25 10:00 Enoxaparin Sodium 120 mg Q12HR SC 01/17/25 10:00 01/19/25 09:17 120 MG Vancomycin HCl 0 ml @ 0 mls/hr UD IV 01/16/25 23:00 Lorazepam 0.5 mg Q6HP PRN IV 01/17/25 07:45 Diagnostic Test (Pha) 1 strip Q6HR 01/17/25 18:00 01/19/25 11:29 1 STRIP Insulin Human Regular FOLLOW SLIDING SCALE Q6HR SC 01/17/25 18:00 01/19/25 11:27 8 UNITS Dextrose 50 ml UD IV 01/17/25 18:00 Vancomycin HCl 300 ml @ 200 mls/hr Q16H IV 01/17/25 18:00 01/19/25 03:25 200 MLS/HR Methylprednisolone Sodium Succinate 40 mg DAILY IV 01/19/25 10:00 01/19/25 09:16 40 MG Fat Emulsion Intravenous 50 ml/ Potassium Phosphate 44 meq/ Magnesium Sulfate 10 meq/ Multivitamins 10 ml/Chromium/ Copper/Manganese/ Zinc 1 ml/Insulin Human Regular 20 units/Amino Acids/ Dextrose 1,073.7 ml @ 45 mls/hr [id number] IV 01/18/25 22:00 01/19/25 21:59 01/18/25 22:04 45 MLS/HR Fat Emulsion Intravenous 50 ml/ Potassium Chloride 10 meq/ Potassium Phosphate 44 meq/ Calcium Gluconate 2.3 meq/Magnesium Sulfate 10 meq/ Multivitamins 10 ml/Chromium/ Copper/Manganese/ Zinc 1 ml/Insulin Human Regular 24 units/Amino Acids/ Dextrose 1,183.6862 ml @ 49 mls/hr [id number] IV 01/19/25 22:00 01/20/25 21:59 Laboratory Results Laboratory Tests 01/19/25 05:41 Chemistry Test 01/19/25 05:41 Albumin 4.1 g/dL (3.2-4.8) Calcium Level 9.0 mg/dL (8.7-10.4) Magnesium Level 2.1 mg/dL (1.6-2.6) Phosphorus Level 2.8 mg/dL (2.4-5.1) Total Protein 6.8 g/dL (5.7-8.2) LFT Test 01/19/25 05:41 Alanine Aminotransferase (ALT) 16 U/L (7-40) Alkaline Phosphatase 59 U/L (46-116) Aspartate Amino Transferase (AST) 14 U/L (13-40) Total Bilirubin 0.2 mg/dL (0.2-1.0) Urinalysis Test 01/15/25 01:59 Urine Color Light-yellow (Yellow) Urine Clarity Clear (Clear) Urine pH 6.0 (5.0-9.0) Urine Specific [place] 1.018 (1.001-1.035) Urine Protein Negative (Negative) Urine Ketones Negative (Negative) Urine Blood Negative /uL (Negative) Urine Nitrite Negative (Negative) Urine Bilirubin Negative (Negative) Urine Urobilinogen Normal mg/dL (Negative) Urine Leukocyte Esterase Negative /uL (Negative) Urine RBC <1 /hpf (0 - 3) Urine Microscopic WBC /HPF (0-3) Urine Squamous Epithelial Cells None seen /hpf (<5) Urine Bacteria None seen /hpf (None Seen) Urine Glucose 4+ mg/dL (Normal) H Microbiology Microbiology Date/Time Source Procedure Growth Status 01/15/25 00:28 Blood Blood Culture - Preliminary NO GROWTH AFTER 72 HOURS OF INCUBATION. Resulted Labs and/or images reviewed: Labs reviewed by me, Image(s) reviewed by me Assessment/Plan Assessment/Plan 01/19- patient here for bowel perf related to gastric bypass.. Surgery is following Dr. Klein. CXR yesterday 01/18 showing air in the diaphragms. And 01/17 Gastrografin swallow showing extravasation from stomach into peritoneal cavity again consistent with bowel perforation. Surgery plan to continue NG tube with intermittent suction, continue NPO, no pushes of meds fluids into NG tube. We will convert all meds to IV. Continuing IV broad-spectrum antibiotics. And surgery wants to repeat CT abdomen with oral contrast? On Monday 01/22. We will continue TPN until then. Via PICC line. Keep patient on tele with close monitoring. Heart rate goal less than 130 with continuous IV amnio and prn IV metoprolol 2.5 q.6h for heart rate more than 130. On,. Blood pressure control with IV hydralazine 10 q.6h for SBP more than 160. Patient had respiratory failure few days ago which is resolving with Solu-Medrol and Lasix and BiPAP. He now has his home CPAP which he was using it nightly. We will stop Solu-Medrol to encourage healing in gastric mucosa. Continuing Protonix IV b.i.d.. Lasix p.r.n. per MD discretion for shortness of Breath/volume overload. Patient was poor candidate for surgery, multiple critical medical issues, poor prognosis, appreciate surgery following. DIAGNOSIS Near syncope likely due to below Acute epigastric abdominal pain, intractable Perforated viscus and pneumoperitoneum, with history of gastric bypass Lactic acidosis, resolved Sepsis due to above Acute respiratory distress Diabetes with hyperglycemia AFib on Coumadin Tachypnea Lipase elevated, mild PLAN Antibiotics vanc/zosyn/azithro TPN via picc line STOP Solu-Medrol for breathing, Solu-Medrol 40 IV b.i.d. Protonix 40 IV b.i.d. STOP IV fluids 100 cc/hour NPO Surgery consult and follow up appreciated Sliding scale insulin moderate a.c. HS DVT prophylaxis GI prophylaxis Full code Plan discussed with: Patient My Orders Orders - POOJA BUSTOS MD Procedure Category Date Status Time Amino Acid PHA 01/18/25 In Process Infusion... W/Fat 22:00 Tpn Per Pharmacy [facility] 01/18/25 In Process 22:00 Amino Acid PHA 01/19/25 In Process Infusion... W/Fat 22:00 Comprehensive LAB 01/20/25 Verified Metabolic Panel 04:00 Magnesium LAB 01/20/25 Verified 04:00 Phosphorus LAB 01/20/25 Verified 04:00 Tpn Per Pharmacy [facility] 01/19/25 In Process 22:00 Metoprolol Inj PHA 01/19/25 Verified (Lopressor) 13:00 Date of Service: January 19, 2025 Billing Provider: POOJA BUSTOS MD Common Visit Codes: [id number] INP/OBS CARE(HIGH) POOJA BUSTOS MD January 19, 2025 13:09
[2025-01-19] MEDS: MORPHINE SULFATE 4 MG/ML SYR/VIAL IV PRN (15:37)
[2025-01-19] MEDS ORDERED: VANCOMYCIN 1.5GM/300ML 300 ML IV SCH (16:00)
[2025-01-19] MEDS: VANCOMYCIN 1.5GM/300ML 300 ML IV SCH (17:46)
[2025-01-19] MEDS: TPN PER PHARMACY IV NR (22:30)
[2025-01-20] VITALS (13 sets, daily range): BP systolic 120–148; BP diastolic 47–91; PULSE 80–111; RESP 16–22; TEMP 97.7–98.7; O2SAT 92–99
[2025-01-20 07:14] LABS: Alanine Aminotransferase 15 U/L (7-40); Albumin 3.8 g/dL (3.2-4.8); Alkaline Phosphatase 70 U/L (46-116); Anion Gap 8 (5-15); BUN/Creatinine Ratio 33.8 (10.0-20.0); Calcium 8.9 mg/dL (8.7-10.4); Carbon Dioxide 30 mmol/L (20-31); Chloride 103 mmol/L (98-107); Magnesium 2.1 mg/dL (1.6-2.6); Phosphorus 2.7 mg/dL (2.4-5.1); Potassium 3.8 mmol/L (3.5-5.1); Sodium 141 mmol/L (136-145); Total Protein 6.3 g/dL (5.7-8.2)
[2025-01-20 07:21] LABS: Aspartate Aminotransferase 13 U/L (13-40); Bilirubin, Total 0.2 mg/dL (0.2-1.0); Blood Urea Nitrogen 23 mg/dL (9-23); Glucose 248 mg/dL (74-106)
[2025-01-20 07:37] LABS: Mean Corpuscular Volume 72.8 fL (80.0-100.0)
[2025-01-20 07:40] LABS: Hematocrit 34.6 % (41.0-53.0); Hemoglobin 10.4 g/dL (13.5-17.5); Mean Corpuscular Hemoglobin 21.8 pg (28.0-32.0); Platelet Count (auto) 450 10^3/uL (140-450); Red Blood Cells 4.75 10^6/uL (4.5-5.90); Red Cell Distribution Width 17.5 % (11.8-14.3); White Blood Cell 16.2 10^3/uL (4.4-10.8)
[2025-01-20 08:15] LABS: Basophils % (manual) 0 (0.0-2.0); Blast Cells 0; Eosinophils % (manual) 0 (0-7); Metamyelocytes % 0; Myelocytes % 0; Promyelocytes % 0; Reactive Lymphocytes 0
--- NOTE | 2025-01-20 10:57 | DVHPN2 ---
Progress Note Date Seen: January 20, 2025 Has the PT tested + for MRSA If YES, has PT been informed?: No Medical Necessity Reason Pt with a Central, PICC or Fol: No Objective vital signs Vital Sign Date Time Temp Pulse Resp B/P (MAP) Pulse Ox O2 Delivery O2 Flow Rate FiO2 01/20/25 10:21 18 18 120/77 01/20/25 09:01 97.9 95 97.9 01/20/25 07:54 Nasal Cannula* 2 28 Total Intake and Output 01/19/25 01/19/25 01/20/25 15:00 23:00 07:00 Intake Total 300 ml 1100 ml 468.6 ml Output Total 1870 ml 1750 ml Balance 300 ml -770 ml -1281.4 ml medications Current Medications Medications Dose Ordered Sig/Vincent Route Start Time Stop Time Status Last Admin Dose Admin Warfarin Sodium RX PROTOCOL PER PHARMACY PO 01/15/25 01:45 Cancel Albuterol 2.5 mg Q4HPRN PRN NEB 01/15/25 01:45 01/20/25 06:08 2.5 MG Ipratropium [place] 0.5 mg Q4HPRN PRN NEB 01/15/25 01:45 01/20/25 06:08 0.5 MG Acetaminophen/ Hydrocodone Bitart 1 tab Q4HP PRN PO 01/15/25 01:45 Hold 01/15/25 02:57 1 TAB Ondansetron HCl 4 mg Q4HP PRN IV 01/15/25 01:45 01/20/25 10:12 4 MG Docusate Sodium 100 mg BIDPRN PRN PO 01/15/25 01:45 Acetaminophen 650 mg Q6HP PRN PO 01/15/25 01:45 Nitroglycerin 0.4 mg Q5MINP PRN SL 01/15/25 01:45 Morphine Sulfate 2 mg Q30M PRN IV 01/15/25 01:45 01/18/25 10:49 2 MG Piperacillin Sod/ Tazobactam Sod 100 ml @ 25 mls/hr Q8HR IV 01/15/25 06:00 01/20/25 05:39 25 MLS/HR Pantoprazole Sodium 40 mg BID IV 01/15/25 10:00 01/20/25 09:24 40 MG Morphine Sulfate 2 mg Q4HPRN PRN IV 01/15/25 09:15 01/19/25 10:00 2 MG Morphine Sulfate 4 mg Q4HPRN PRN IV 01/15/25 09:15 01/20/25 10:21 4 MG Amino Acids 0 ml @ 0 mls/hr PER PHARMACY IV 01/16/25 13:15 Azithromycin 250 ml @ 125 mls/hr DAILY IV 01/17/25 10:00 01/20/25 10:12 125 MLS/HR Sodium Chloride 10 ml QSHIFT@10,22 IV 01/16/25 22:00 01/20/25 09:24 10 ML Hydralazine HCl 10 mg Q6HP PRN IV 01/16/25 20:00 Enoxaparin Sodium 120 mg Q12HR SC 01/17/25 10:00 01/20/25 09:24 120 MG Vancomycin HCl 0 ml @ 0 mls/hr UD IV 01/16/25 23:00 Lorazepam 0.5 mg Q6HP PRN IV 01/17/25 07:45 Diagnostic Test (Pha) 1 strip Q6HR 01/17/25 18:00 01/20/25 05:50 1 STRIP Insulin Human Regular FOLLOW SLIDING SCALE Q6HR SC 01/17/25 18:00 01/20/25 05:50 8 UNITS Dextrose 50 ml UD IV 01/17/25 18:00 Fat Emulsion Intravenous 50 ml/ Potassium Chloride 10 meq/ Potassium Phosphate 44 meq/ Calcium Gluconate 2.3 meq/Magnesium Sulfate 10 meq/ Multivitamins 10 ml/Chromium/ Copper/Manganese/ Zinc 1 ml/Insulin Human Regular 24 units/Amino Acids/ Dextrose 1,183.6862 ml @ 49 mls/hr [id number] IV 01/19/25 22:00 01/20/25 21:59 01/19/25 22:30 49 MLS/HR Metoprolol Tartrate 2.5 mg Q6HPRN PRN IV 01/19/25 13:00 Vancomycin HCl 300 ml @ 200 mls/hr Q14H IV 01/19/25 18:00 01/20/25 09:23 200 MLS/HR laboratory and microbiology Laboratory Tests 01/20/25 06:09 Test 01/20/25 06:09 Range/Units Serum Glucose 248 H 74-106 mg/dL Problem List/Assessment/Plan Problem List/Assessment/Plan 01/19/25 ASSUMING CARE FROM : PATIENT IS A MORBIDLY OBESE MALE WHO HAD A BARIATRIC OPERATION ( GASTRIC BYPASS?) 10 YEARS AGO WHICH LED TO A 100 LB LOSS. 4 DAYS AGO WAS ADMITTED WITH ABDOMINAL PAIN AND WAS FOUND TO HAVE PNEUMOPERITONEUM, THUS FAR HAS BEEN TREATED CONSERVATIVELY, A GASTROGRAFIN UGI X RAY SHOWS PERSISTENT LEAK FORM UPPER GI TRACT (PROBABLY GASTROENTERIC ANASTOMOSIS. HE REMAINS SYMPTOM FREE (PAIN STOPPED ABOUT 24 HOURS AGO), HE IS AFEBRILE, ABDOMEN IS OBESE, NON DISTENDED, NONTENDER, CONTINUE NON OPERATIVE TREATMENT, WITH NGT TO CONTINUOUS SUCTION, STRICT NPO, IV FLUIDS AND NUTRITION. OBSERVE FOR EVIDENCE OF SEPSIS . REPEAT CHEST/ABDOMEN CT SCAN WITH CONTRAST IN 72 HOURS. . 01/20/25 patient had a panic attack abdomen continues to be non tender, and non distended, patient "feels like is going to have a bowel movement" and thionks he is passing flatus. continue as is, Plan discussed with: Patient Dietary Evaluation Review Comments: 1. Advance TPN to meet at least 75% estimated needs 2. Contineu current POC Expected Outcomes/Goals: To meet >75% estimated needs Fu 2-3 days JACK MAURICE MD January 20, 2025 10:57
[2025-01-20 11:50] LABS: Band Neutrophils % (manual) 5; Hypochromia Moderate; Lymphocytes % (manual) 6 (10.0-50.0); Monocytes % (manual) 10 (0-12); Platelet Estimate Adequate
--- NOTE | 2025-01-20 14:25 | DVHPN2 ---
Subjective Update 01/20 01/19- patient here for bowel perf related to gastric bypass.. Surgery is following Dr. Klein. CXR yesterday 01/18 showing air in the diaphragms. And 01/17 Gastrografin swallow showing extravasation from stomach into peritoneal cavity again consistent with bowel perforation. Surgery plan to continue NG tube with intermittent suction, continue NPO, no pushes of meds fluids into NG tube. We will convert all meds to IV. Continuing IV broad-spectrum antibiotics. And surgery wants to repeat CT abdomen with oral contrast? On Monday 01/22. We will continue TPN until then. Via PICC line. Keep patient on tele with close monitoring. Heart rate goal less than 130 with continuous IV amnio and prn IV metoprolol 2.5 q.6h for heart rate more than 130. On,. Blood pressure control with IV hydralazine 10 q.6h for SBP more than 160. Patient had respiratory failure few days ago which is resolving with Solu-Medrol and Lasix and BiPAP. He now has his home CPAP which he was using it nightly. We will stop Solu-Medrol to encourage healing in gastric mucosa. Continuing Protonix IV b.i.d.. Lasix p.r.n. per MD discretion for shortness of Breath/volume overload. Patient was poor candidate for surgery, multiple critical medical issues, poor prognosis, appreciate surgery following. 01/20 patient has epigastrium sounds high-pitched tinkling. But no tender to palpation. Nondistended. Soft. He does not complain of abdominal pain. He does not feel no shortness a breath. Vital signs stable. White count continues to increase. We are holding off steroids. Holding off Lasix. Net I&O is negative for past few days. Continuing TPN via PICC line. Plan for CT abdomen and pelvis with? Oral contrast? Per surgery on Monday 01/22. Patient has remained on tele as last few imaging tests have shown extravasation/perforation. Continue IV antibiotics broad-spectrum. Reviewed: H&P Changes from previous H/P or p: No Changes General: Per HPI Objective Vitals Vital Signs Date Time Temp Pulse Resp B/P (MAP) Pulse Ox O2 Delivery O2 Flow Rate FiO2 01/20/25 13:00 97.7 104 18 127/88 (101) 94 97.7 01/20/25 11:41 Nasal Cannula* 3 32 Intake/Output Intake and Output 01/20/25 07:00 Intake Total 1868.6 ml Output Total 3620 ml Balance -1751.4 ml Intake Oral 1000 ml IV Total 868.6 ml Output Urine Total 3450 ml Gastric Drainage Total 170 ml Exam GEN: Healthy appearing, well-developed, appears in mild acute discomfort, diaphoresis HEENT: NC/AT; MMM. CV: RRR, no m/r/g. LUNGS: CTAB, no w/r/c. ABD: Tender to palpation generalized throughout abdomen, more localized to epigastrium, high-pitched bowel sounds. NG tube inserted with yellow-green bilious output. EXT: skin Warm, well perfused. no rashes. No clubbing, cyanosis, or edema. NEURO: Ambulating with no limitations. No focal deficits. Medications Current Medications Medications Dose Ordered Sig/Vincent Route Start Time Stop Time Status Last Admin Dose Admin Warfarin Sodium RX PROTOCOL PER PHARMACY PO 01/15/25 01:45 Cancel Albuterol 2.5 mg Q4HPRN PRN NEB 01/15/25 01:45 01/20/25 11:40 2.5 MG Ipratropium [place] 0.5 mg Q4HPRN PRN NEB 01/15/25 01:45 01/20/25 11:40 0.5 MG Acetaminophen/ Hydrocodone Bitart 1 tab Q4HP PRN PO 01/15/25 01:45 Hold 01/15/25 02:57 1 TAB Ondansetron HCl 4 mg Q4HP PRN IV 01/15/25 01:45 01/20/25 10:12 4 MG Docusate Sodium 100 mg BIDPRN PRN PO 01/15/25 01:45 Acetaminophen 650 mg Q6HP PRN PO 01/15/25 01:45 Nitroglycerin 0.4 mg Q5MINP PRN SL 01/15/25 01:45 Morphine Sulfate 2 mg Q30M PRN IV 01/15/25 01:45 01/18/25 10:49 2 MG Piperacillin Sod/ Tazobactam Sod 100 ml @ 25 mls/hr Q8HR IV 01/15/25 06:00 01/20/25 05:39 25 MLS/HR Pantoprazole Sodium 40 mg BID IV 01/15/25 10:00 01/20/25 09:24 40 MG Morphine Sulfate 2 mg Q4HPRN PRN IV 01/15/25 09:15 01/19/25 10:00 2 MG Morphine Sulfate 4 mg Q4HPRN PRN IV 01/15/25 09:15 01/20/25 10:21 4 MG Amino Acids 0 ml @ 0 mls/hr PER PHARMACY IV 01/16/25 13:15 Azithromycin 250 ml @ 125 mls/hr DAILY IV 01/17/25 10:00 01/20/25 10:12 125 MLS/HR Sodium Chloride 10 ml QSHIFT@10,22 IV 01/16/25 22:00 01/20/25 09:24 10 ML Hydralazine HCl 10 mg Q6HP PRN IV 01/16/25 20:00 Vancomycin HCl 0 ml @ 0 mls/hr UD IV 01/16/25 23:00 Lorazepam 0.5 mg Q6HP PRN IV 01/17/25 07:45 Diagnostic Test (Pha) 1 strip Q6HR 01/17/25 18:00 01/20/25 12:00 1 STRIP Insulin Human Regular FOLLOW SLIDING SCALE Q6HR SC 01/17/25 18:00 01/20/25 12:46 12 UNITS Dextrose 50 ml UD IV 01/17/25 18:00 Fat Emulsion Intravenous 50 ml/ Potassium Chloride 10 meq/ Potassium Phosphate 44 meq/ Calcium Gluconate 2.3 meq/Magnesium Sulfate 10 meq/ Multivitamins 10 ml/Chromium/ Copper/Manganese/ Zinc 1 ml/Insulin Human Regular 24 units/Amino Acids/ Dextrose 1,183.6862 ml @ 49 mls/hr [id number] IV 01/19/25 22:00 01/20/25 21:59 01/19/25 22:30 49 MLS/HR Metoprolol Tartrate 2.5 mg Q6HPRN PRN IV 01/19/25 13:00 Vancomycin HCl 300 ml @ 200 mls/hr Q14H IV 01/19/25 18:00 01/20/25 09:23 200 MLS/HR Fat Emulsion Intravenous 50 ml/ Potassium Chloride 10 meq/ Potassium Phosphate 50 meq/ Calcium Gluconate 2.3 meq/Magnesium Sulfate 10 meq/ Multivitamins 10 ml/Chromium/ Copper/Manganese/ Zinc 1 ml/Insulin Human Regular 24 units/Amino Acids/ Dextrose 1,285.0498 ml @ 53 mls/hr [id number] IV 01/20/25 22:00 01/21/25 21:59 Enoxaparin Sodium 110 mg Q12HR SC 01/20/25 22:00 Laboratory Results Laboratory Tests 01/20/25 06:09 Chemistry Test 01/20/25 06:09 Albumin 3.8 g/dL (3.2-4.8) Calcium Level 8.9 mg/dL (8.7-10.4) Magnesium Level 2.1 mg/dL (1.6-2.6) Phosphorus Level 2.7 mg/dL (2.4-5.1) Total Protein 6.3 g/dL (5.7-8.2) LFT Test 01/20/25 06:09 Alanine Aminotransferase (ALT) 15 U/L (7-40) Alkaline Phosphatase 70 U/L (46-116) Aspartate Amino Transferase (AST) 13 U/L (13-40) Total Bilirubin 0.2 mg/dL (0.2-1.0) Urinalysis Test 01/15/25 01:59 Urine Color Light-yellow (Yellow) Urine Clarity Clear (Clear) Urine pH 6.0 (5.0-9.0) Urine Specific [place] 1.018 (1.001-1.035) Urine Protein Negative (Negative) Urine Ketones Negative (Negative) Urine Blood Negative /uL (Negative) Urine Nitrite Negative (Negative) Urine Bilirubin Negative (Negative) Urine Urobilinogen Normal mg/dL (Negative) Urine Leukocyte Esterase Negative /uL (Negative) Urine RBC <1 /hpf (0 - 3) Urine Microscopic WBC /HPF (0-3) Urine Squamous Epithelial Cells None seen /hpf (<5) Urine Bacteria None seen /hpf (None Seen) Urine Glucose 4+ mg/dL (Normal) H Microbiology Microbiology Date/Time Source Procedure Growth Status 01/15/25 00:28 Blood Blood Culture - Final NO GROWTH AFTER 5 DAYS OF INCUBATION. Complete Labs and/or images reviewed: Labs reviewed by me, Image(s) reviewed by me Assessment/Plan Assessment/Plan 01/20 patient has epigastrium sounds high-pitched tinkling. But no tender to palpation. Nondistended. Soft. He does not complain of abdominal pain. He does not feel no shortness a breath. Vital signs stable. White count continues to increase. We are holding off steroids. Holding off Lasix. Net I&O is negative for past few days. Continuing TPN via PICC line. Plan for CT abdomen and pelvis with? Oral contrast? Per surgery on Monday 01/22. Patient has remained on tele as last few imaging tests have shown extravasation/perforation. Continue IV antibiotics broad-spectrum. I am concerned about vanc Zosyn combination FX on renal function we will deescalate to doxy/zosyn DIAGNOSIS Near syncope likely due to below Acute epigastric abdominal pain, intractable Perforated viscus and pneumoperitoneum, with history of gastric bypass Lactic acidosis, resolved Sepsis due to above Acute respiratory distress Diabetes with hyperglycemia AFib on Coumadin Tachypnea Lipase elevated, mild PLAN Antibiotics doxycycline/Zosyn (prior vanc/zosyn/azithro) TPN via picc line STOP Solu-Medrol for breathing, Solu-Medrol 40 IV b.i.d. Protonix 40 IV b.i.d. STOP IV fluids 100 cc/hour NPO Surgery consult and follow up appreciated Sliding scale insulin moderate a.c. HS DVT prophylaxis GI prophylaxis Full code Plan discussed with: Patient My Orders Orders - POOJA BUSTOS MD Procedure Category Date Status Time Amino Acid PHA 01/20/25 In Process Infusion... W/Fat 22:00 Comprehensive LAB 01/21/25 Verified Metabolic Panel 04:00 Magnesium LAB 01/21/25 Verified 04:00 Phosphorus LAB 01/21/25 Verified 04:00 Tpn Per Pharmacy [facility] 01/20/25 In Process 22:00 Date of Service: January 20, 2025 Billing Provider: POOJA BUSTOS MD Common Visit Codes: [id number] INP/OBS CARE(HIGH) POOJA BUSTOS MD January 20, 2025 14:25
[2025-01-20] MEDS: DOXYCYCLINE 100MG/100ML 100 ML IV SCH (15:39)
[2025-01-20] MEDS: MORPHINE SULFATE 4 MG/ML SYR/VIAL IV PRN (21:11)
[2025-01-20] MEDS: ENOXAPARIN SOD 120 MG/0.8 ML SYRINGE SC SCH (21:30)
[2025-01-20] MEDS: TPN PER PHARMACY IV NR (21:41)
[2025-01-21] VITALS (9 sets, daily range): BP systolic 116–145; BP diastolic 75–84; PULSE 79–95; RESP 14–19; TEMP 97.5–98.5; O2SAT 92–97
[2025-01-21 08:05] LABS: Basophils # (auto) 0 10 ^3/uL (0-0.2); Eosinophils # (auto) 0.2 10 ^3/uL (0-0.8); Hemoglobin 10.6 g/dL (13.5-17.5); Lymphocytes % (auto) 4.6 % (10.0-50.0); Mean Corpuscular Hemoglobin 21.7 pg (28.0-32.0); Mean Corpuscular Hgb Conc. 29.5 g/dL (32.0-36.0); Red Blood Cells 4.89 10^6/uL (4.5-5.90)
[2025-01-21 08:06] LABS: Basophils % (auto) 0.1 % (0.0-2.0); Eosinophils % (auto) 0.9 % (0.0-7.0); Mean Corpuscular Volume 73.5 fL (80.0-100.0); Monocytes # (auto) 1.5 10 ^3/uL (0-1.3); Monocytes % (auto) 7.4 % (0.0-12.0); Neutrophils # (auto) 18.1 10 ^3/uL (1.6-8.6); Nucleated Red Blood Cells % 0.8 %; Platelet Count (auto) 430 10^3/uL (140-450); Red Cell Distribution Width 17.9 % (11.8-14.3); White Blood Cell 20.8 10^3/uL (4.4-10.8)
[2025-01-21 08:20] LABS: Alanine Aminotransferase 14 U/L (7-40); Albumin 3.5 g/dL (3.2-4.8); Alkaline Phosphatase 79 U/L (46-116); Anion Gap 7 (5-15); BUN/Creatinine Ratio 34.2 (10.0-20.0); Calcium 9.4 mg/dL (8.7-10.4); Carbon Dioxide 30 mmol/L (20-31); Chloride 100 mmol/L (98-107); Phosphorus 3.2 mg/dL (2.4-5.1); Potassium 3.8 mmol/L (3.5-5.1); Sodium 137 mmol/L (136-145); Total Protein 5.8 g/dL (5.7-8.2)
[2025-01-21 08:29] LABS: Aspartate Aminotransferase 11 U/L (13-40); Bilirubin, Total 0.2 mg/dL (0.2-1.0); Blood Urea Nitrogen 27 mg/dL (9-23); Glucose 328 mg/dL (74-106)
--- NOTE | 2025-01-21 11:21 | DVHPN2 ---
Subjective Date Seen: January 21, 2025 Post op day Post op day: 0 Objective Vitals Vital Sign Date Time Temp Pulse Resp B/P (MAP) Pulse Ox O2 Delivery O2 Flow Rate FiO2 01/21/25 09:02 91 18 140/81 01/21/25 08:30 98.2 97 98.2 01/21/25 08:00 Nasal Cannula* 2 28 Total Intake and Output 01/20/25 01/20/25 01/21/25 15:00 23:00 07:00 Intake Total 850 ml 100 ml 200 ml Output Total 950 ml 1025 ml Balance 850 ml -850 ml -825 ml Medications Current Medications Medications Dose Ordered Sig/Vincent Route Start Time Stop Time Status Last Admin Dose Admin Warfarin Sodium RX PROTOCOL PER PHARMACY PO 01/15/25 01:45 Cancel Albuterol 2.5 mg Q4HPRN PRN NEB 01/15/25 01:45 01/20/25 11:40 2.5 MG Ipratropium [place] 0.5 mg Q4HPRN PRN NEB 01/15/25 01:45 01/20/25 11:40 0.5 MG Acetaminophen/ Hydrocodone Bitart 1 tab Q4HP PRN PO 01/15/25 01:45 Hold 01/15/25 02:57 1 TAB Ondansetron HCl 4 mg Q4HP PRN IV 01/15/25 01:45 01/21/25 09:01 4 MG Docusate Sodium 100 mg BIDPRN PRN PO 01/15/25 01:45 Acetaminophen 650 mg Q6HP PRN PO 01/15/25 01:45 Nitroglycerin 0.4 mg Q5MINP PRN SL 01/15/25 01:45 Morphine Sulfate 2 mg Q30M PRN IV 01/15/25 01:45 01/18/25 10:49 2 MG Piperacillin Sod/ Tazobactam Sod 100 ml @ 25 mls/hr Q8HR IV 01/15/25 06:00 01/21/25 05:26 25 MLS/HR Pantoprazole Sodium 40 mg BID IV 01/15/25 10:00 01/21/25 09:01 40 MG Morphine Sulfate 2 mg Q4HPRN PRN IV 01/15/25 09:15 01/19/25 10:00 2 MG Amino Acids 0 ml @ 0 mls/hr PER PHARMACY IV 01/16/25 13:15 Sodium Chloride 10 ml QSHIFT@10,22 IV 01/16/25 22:00 01/20/25 21:29 10 ML Hydralazine HCl 10 mg Q6HP PRN IV 01/16/25 20:00 Lorazepam 0.5 mg Q6HP PRN IV 01/17/25 07:45 Diagnostic Test (Pha) 1 strip Q6HR 01/17/25 18:00 01/21/25 05:46 1 STRIP Insulin Human Regular FOLLOW SLIDING SCALE Q6HR SC 01/17/25 18:00 01/21/25 05:45 12 UNITS Dextrose 50 ml UD IV 01/17/25 18:00 Metoprolol Tartrate 2.5 mg Q6HPRN PRN IV 01/19/25 13:00 Fat Emulsion Intravenous 50 ml/ Potassium Chloride 10 meq/ Potassium Phosphate 50 meq/ Calcium Gluconate 2.3 meq/Magnesium Sulfate 10 meq/ Multivitamins 10 ml/Chromium/ Copper/Manganese/ Zinc 1 ml/Insulin Human Regular 24 units/Amino Acids/ Dextrose 1,285.0498 ml @ 53 mls/hr [id number] IV 01/20/25 22:00 01/21/25 21:59 01/20/25 21:41 53 MLS/HR Enoxaparin Sodium 110 mg Q12HR SC 01/20/25 22:00 01/20/25 21:30 110 MG Doxycycline Hyclate 100 ml @ 50 mls/hr Q12H IV 01/20/25 14:30 01/21/25 02:35 50 MLS/HR Morphine Sulfate 4 mg Q3HPRN PRN IV 01/20/25 18:30 01/21/25 09:02 4 MG Labs and Microbiology Laboratory Tests 01/21/25 07:25 Test 01/21/25 07:25 Range/Units Serum Glucose 328 H 74-106 mg/dL Ass/Plan Labs and/or images reviewed: Labs reviewed by me, Image(s) reviewed by me Problem List 01/19/25 ASSUMING CARE FROM : PATIENT IS A MORBIDLY OBESE MALE WHO HAD A BARIATRIC OPERATION ( GASTRIC BYPASS?) 10 YEARS AGO WHICH LED TO A 100 LB LOSS. 4 DAYS AGO WAS ADMITTED WITH ABDOMINAL PAIN AND WAS FOUND TO HAVE PNEUMOPERITONEUM, THUS FAR HAS BEEN TREATED CONSERVATIVELY, A GASTROGRAFIN UGI X RAY SHOWS PERSISTENT LEAK FORM UPPER GI TRACT (PROBABLY GASTROENTERIC ANASTOMOSIS. HE REMAINS SYMPTOM FREE (PAIN STOPPED ABOUT 24 HOURS AGO), HE IS AFEBRILE, ABDOMEN IS OBESE, NON DISTENDED, NONTENDER, CONTINUE NON OPERATIVE TREATMENT, WITH NGT TO CONTINUOUS SUCTION, STRICT NPO, IV FLUIDS AND NUTRITION. OBSERVE FOR EVIDENCE OF SEPSIS . REPEAT CHEST/ABDOMEN CT SCAN WITH CONTRAST IN 72 HOURS. . 01/20/25 patient had a panic attack abdomen continues to be non tender, and non distended, patient "feels like is going to have a bowel movement" and thionks he is passing flatus. continue as is, Assessment/Plan complaint of SOB abdomen soft, slightly distended, minimally tender elevated WBC,afebrile Plan: NPO Chest Xray care rep consult repeat CT with contrast on Thursday Prognosis: Good Plan discussed with patient, Dr. Paris Visit Coding Surgery Date of Service if different f: January 21, 2025 Billing Provider: JACK PARIS MD Surgery Visit Codes: [id number] INP/OBS CARE(HIGH) YO JAMES CAMP COORDINATOR January 21, 2025 11:21
--- NOTE | 2025-01-21 11:41 | DVH ---
XY CHEST PORTABLE, HISTORY: interval change pneumoperitoneum COMPARISON: XY CHEST XRAY 1 VIEW on DOS: 01/19/25, XY CHEST XRAY 1 VIEW on DOS: 01/17/25, XY CHEST XRAY 1 VIEW on DOS: 01/17/25 XY CHEST XRAY 1 VIEW on DOS: 01/19/25, XY CHEST XRAY 1 VIEW on DOS: 01/17/25, XY CHEST XRAY 1 VIEW on D OS: 01/17/25 TECHNICAL DATA: 1 view of the chest was obtained. FINDINGS: Lines and tubes: There is a right arm PICC line with tip in the right atrium. Cardiomediastinal silhouette: Enlarged. Pulmonary vasculature: normal Lung expansion: normal Lung airspace: normal Lung interstitium: normal Pleura: normal Pneumothorax: no Bones: Unremarkable Other: no IMPRESSION: No acute intrathoracic abnormality. Pneumoperitoneum is seen.
--- NOTE | 2025-01-21 14:21 | DVHPN2 ---
Subjective The patient is seen and examined at bedside. Complain of nausea or vomiting. Complain of pain despite getting morphine 4 mg every 3 hours and also [place] in between. Patient also received Zofran around the clock. Reviewed: Care Plan, H&P, Labs, Medications, Previous Orders, Radiology Changes from previous H/P or p: No Changes General: Per HPI Objective Vitals Vital Signs Date Time Temp Pulse Resp B/P (MAP) Pulse Ox O2 Delivery O2 Flow Rate FiO2 01/21/25 12:22 91 18 140/91 01/21/25 08:30 98.2 97 98.2 01/21/25 08:00 Nasal Cannula* 2 28 Intake/Output Intake and Output 01/21/25 07:00 Intake Total 1150 ml Output Total 1975 ml Balance -825 ml Intake Oral 0 ml IV Total 1150 ml Output Urine Total 1975 ml General Appearance: Alert, Oriented X3, No acute distress HEENT: Atraumatic, PERRLA, EOMI, Mucous membr. moist/pink Neck: Supple Lungs: Clear to auscultation, Normal air movement Cardiovascular: Regular rate, Normal S1, Normal S2, No murmurs, Gallops, Rubs Abdomen: Normal bowel sounds, Soft, No tenderness Neuro: Cranial nerves 3-12 NL Psych/Mental Status: Mental status NL Medications Current Medications Medications Dose Ordered Sig/Vincent Route Start Time Stop Time Status Last Admin Dose Admin Warfarin Sodium RX PROTOCOL PER PHARMACY PO 01/15/25 01:45 Cancel Albuterol 2.5 mg Q4HPRN PRN NEB 01/15/25 01:45 01/20/25 11:40 2.5 MG Ipratropium [place] 0.5 mg Q4HPRN PRN NEB 01/15/25 01:45 01/20/25 11:40 0.5 MG Acetaminophen/ Hydrocodone Bitart 1 tab Q4HP PRN PO 01/15/25 01:45 Hold 01/15/25 02:57 1 TAB Ondansetron HCl 4 mg Q4HP PRN IV 01/15/25 01:45 01/21/25 13:26 4 MG Docusate Sodium 100 mg BIDPRN PRN PO 01/15/25 01:45 Acetaminophen 650 mg Q6HP PRN PO 01/15/25 01:45 Nitroglycerin 0.4 mg Q5MINP PRN SL 01/15/25 01:45 Morphine Sulfate 2 mg Q30M PRN IV 01/15/25 01:45 01/18/25 10:49 2 MG Piperacillin Sod/ Tazobactam Sod 100 ml @ 25 mls/hr Q8HR IV 01/15/25 06:00 01/21/25 05:26 25 MLS/HR Pantoprazole Sodium 40 mg BID IV 01/15/25 10:00 01/21/25 09:01 40 MG Morphine Sulfate 2 mg Q4HPRN PRN IV 01/15/25 09:15 01/19/25 10:00 2 MG Amino Acids 0 ml @ 0 mls/hr PER PHARMACY IV 01/16/25 13:15 Sodium Chloride 10 ml QSHIFT@10,22 IV 01/16/25 22:00 01/21/25 10:00 10 ML Hydralazine HCl 10 mg Q6HP PRN IV 01/16/25 20:00 Lorazepam 0.5 mg Q6HP PRN IV 01/17/25 07:45 Diagnostic Test (Pha) 1 strip Q6HR 01/17/25 18:00 01/21/25 12:19 1 STRIP Insulin Human Regular FOLLOW SLIDING SCALE Q6HR SC 01/17/25 18:00 01/21/25 12:00 12 UNITS Dextrose 50 ml UD IV 01/17/25 18:00 Metoprolol Tartrate 2.5 mg Q6HPRN PRN IV 01/19/25 13:00 Fat Emulsion Intravenous 50 ml/ Potassium Chloride 10 meq/ Potassium Phosphate 50 meq/ Calcium Gluconate 2.3 meq/Magnesium Sulfate 10 meq/ Multivitamins 10 ml/Chromium/ Copper/Manganese/ Zinc 1 ml/Insulin Human Regular 24 units/Amino Acids/ Dextrose 1,285.0498 ml @ 53 mls/hr [id number] IV 01/20/25 22:00 01/21/25 21:59 01/20/25 21:41 53 MLS/HR Enoxaparin Sodium 110 mg Q12HR SC 01/20/25 22:00 01/21/25 10:00 110 MG Doxycycline Hyclate 100 ml @ 50 mls/hr Q12H IV 01/20/25 14:30 01/21/25 02:35 50 MLS/HR Morphine Sulfate 4 mg Q3HPRN PRN IV 01/20/25 18:30 01/21/25 12:22 4 MG Fat Emulsion Intravenous 50 ml/ Sodium Chloride 20 meq/Sodium Phosphate 20 meq/ Potassium Chloride 40 meq/ Magnesium Sulfate 12 meq/ Multivitamins 10 ml/Chromium/ Copper/Manganese/ Zinc 1 ml/Insulin Human Regular 32 units/Amino Acids/ Dextrose 1,394.32 ml @ 58 mls/hr Q24H3M IV 01/21/25 22:00 01/22/25 21:59 Laboratory Results Laboratory Tests 01/21/25 07:25 Chemistry Test 01/21/25 07: Albumin 3.5 g/dL (3.2-4.8) Calcium Level 9.4 mg/dL (8.7-10.4) Magnesium Level 2.0 mg/dL (1.6-2.6) Phosphorus Level 3.2 mg/dL (2.4-5.1) Total Protein 5.8 g/dL (5.7-8.2) LFT Test 01/21/25 07:25 Alanine Aminotransferase (ALT) 14 U/L (7-40) Alkaline Phosphatase 79 U/L (46-116) Aspartate Amino Transferase (AST) 11 U/L (13-40) L Total Bilirubin 0.2 mg/dL (0.2-1.0) Urinalysis Test 01/15/25 01:59 Urine Color Light-yellow (Yellow) Urine Clarity Clear (Clear) Urine pH 6.0 (5.0-9.0) Urine Specific [place] 1.018 (1.001-1.035) Urine Protein Negative (Negative) Urine Ketones Negative (Negative) Urine Blood Negative /uL (Negative) Urine Nitrite Negative (Negative) Urine Bilirubin Negative (Negative) Urine Urobilinogen Normal mg/dL (Negative) Urine Leukocyte Esterase Negative /uL (Negative) Urine RBC <1 /hpf (0 - 3) Urine Microscopic WBC /HPF (0-3) Urine Squamous Epithelial Cells None seen /hpf (<5) Urine Bacteria None seen /hpf (None Seen) Urine Glucose 4+ mg/dL (Normal) H Microbiology Microbiology Date/Time Source Procedure Growth Status 01/15/25 00:28 Blood Blood Culture - Final NO GROWTH AFTER 5 DAYS OF INCUBATION. Complete Labs and/or images reviewed: Labs reviewed by me Assessment/Plan Assessment/Plan Near syncope likely due to below Acute epigastric abdominal pain, intractable Perforated viscus and pneumoperitoneum, with history of gastric bypass Lactic acidosis, resolved Sepsis due to above Acute respiratory distress Diabetes with hyperglycemia AFib on Coumadin Tachypnea Lipase elevated, mild PLAN Continuing Antibiotics doxycycline/Zosyn (prior vanc/zosyn/azithro) Continuing TPN via picc line STOP Solu-Medrol for breathing, Solu-Medrol 40 IV b.i.d. Protonix 40 IV b.i.d. Continuing to keep NPO Surgery consult and follow up appreciated Sliding scale insulin moderate a.c. HS Discussed with RN. The patient is not in severe pain we will not change the pain frequency and increase dose of morphine. We keep the same dose morphine 4 mg IV q.3 hours prn Regarding to his nausea I am going to add Phenergan 25 mg IM every 6 hours in between Zofran to see if this help him with the nausea. This medical document was created using an electronic medical record system with [employer] direct computerized dictation system. Although this document has been carefully reviewed, there may still be some phonetic and typographical errors. These areas are purely typographical due to imperfections of the software programs, and do not reflect any compromise in the patient's medical care. Plan discussed with: Patient Date of Service: January 21, 2025 Billing Provider: LAWANDA SEARS MD Common Visit Codes: [id number] INP/OBS CARE(HIGH) LAWANDA SEARS MD January 21, 2025 14:21
--- NOTE | 2025-01-21 16:24 | DVHINCON2 ---
Date of service: January 20, 2025 Referring Physician Alex Ace NP Reason for Consultation COPD management History of Present Illness History Source: Patient Exam Limitations: No limitations HPI Patient is a 74-year old gentleman with a history of morbid obesity, ARIANNE/COPD on cpap at home, hyperlipidemia and hypertension who presented with abdominal pain and near syncope. Was seen in the emergency room where imaging raised concern for small bowel obstruction. NG tube was placed for decompression and the patient was admitted for further workup. Pulmonology was consulted to assist in COPD management. Home Meds Reported Medications Rivaroxaban (Xarelto Tablet) 20 Mg Tb, 20 MG PO DAILY, TAB 01/15/25 Lisinopril (Lisinopril) 40 Mg Tab, 40 MG PO DAILY for 30 Days, MG 01/15/25 Chlorpheniramine Maleate (Chlorpheniramine Maleate) 12 Mg Tab, 12 MG PO DAILY PRN for allergy, TAB 01/15/25 Mmwiybevsxg-Vueujadpggzp-Zhxrr (Trelegy Ellipta 100-62.5-25 Mcg/INH) 1 Aer Aer, 1 AER IN DAILY, AER 01/15/25 Empagliflozin (Jardiance) 10 Mg Tab, 10 MG PO DAILY, TAB 01/15/25 Cetirizine Hcl (Kls Aller-Renetta) 10 Mg Tab, 1 TAB PO DAILY, #30 TAB 3 Refills 01/11/24 Omeprazole (Gnp Omeprazole) 20 Mg Tab, 1 TAB PO BID, #90 TAB 1 Refill 01/11/24 Polyethylene Glycol 3350 (Polyethylene Glycol) 17 Gm/Scoop Pow, 17 GM PO DAILY, POW 01/11/24 Warfarin Sodium (Warfarin Sodium) 5 Mg Tab, 15 MG PO MWFSa for 30 Days, MG 01/02/24 Diltiazem Hcl (Cardizem La) 120 Mg Tab, 1 01/01/24 Hctz (Hydrochlorothiazide) 25 Mg Tab, 12.5 MG PO DAILY 01/01/24 Lisinopril (Lisinopril) 40 Mg Tab, 1 TAB PO DAILY 01/01/24 Warfarin Sodium (Warfarin Sodium) 10 Mg Tab, 1 TAB PO TUE,BROOKE,SUN 01/01/24 Tramadol Hcl (Tramadol Hcl) 50 Mg Tab, 1 TAB PO BIDPRN PRN 01/01/24 Cyclobenzaprine HCl (Cyclobenzaprine Hydrochlo) 5 Mg Tab, 1 TAB PO BID 01/01/24 Gabapentin (Gabapentin) 300 Mg Cap, 3 CAP PO TID 01/01/24 Metoprolol Succinate (Metoprolol Succinate Er) 100 Mg Tab, 50 TAB PO DAILY 01/01/24 Metformin Hydrochloride (Metformin Hcl) 1,000 Mg Tab, 1 TAB PO BID 01/01/24 Oxycodone Hcl (OXYCODONE HCL) 5 Mg Tb, 1 TAB PO TID PRN 01/01/24 Past Medical History Cardiac: HTN, Hyperlipidemia Pulmonary: COPD Central Nervous System: No pertinent Hx GI: No pertinent Hx Hemotology/Oncology: No pertinent Hx Hepatobiliary: No pertinent Hx Psychiatric: No pertinent Hx Musculoskeletal: No pertinent Hx Rheumotologic: No pertinent Hx Infectious Disease: No peritnent Hx ENT: No pertinent Hx Renal/: No pertinent Hx Endocrine: No pertinent Hx Dermatology: No pertinent Hx Past Surgical History: No pertinent Hx Family History: Hypertension Patient Family History: Hypertension G8 FATHER Smoker: No Hx (Negative) Alocohol: None Drugs: None Lives with: With family Domestic Violence: Neg Review of Systems Constitutional: No symptom reported Ears, Nose, & Throat: No symptom reported Eyes: No symptom reported Pulmonary/Respiratory: No symptom reported Cardiovascular: No symptom reported Gastrointestinal: Abdominal Pain Genitourinary: No symptom reported Musculoskeletal: No symptom reported Skin: No symptom reported Psychiatric: No symptom reported Endocrine: No symptom reported Hemotologic/Lymphatic: No symptom reported H&P Exam Vital Signs Vital Signs Date Time Temp Pulse Resp B/P (MAP) Pulse Ox O2 Delivery O2 Flow Rate FiO2 01/21/25 16:14 94 Nasal Cannula* 2 28 01/21/25 12:30 97.9 87 18 134/81 (98) 97.9 General Appeara: Well developed, Well nourished, Normal Appearance Head Exam: Normal inspection Neck Exam: Normal inspection, Non-tender, Normal alignment Eye Exam: bilateral eye Normal inspection, bilateral eye PERRL, bilateral eye EOMI Ear Exam: bilateral ear Auricle normal, bilateral ear Canal normal, bilateral ear TM normal Nasal Exam: Normal inspection Mouth: Normal Inspection Pulmonary/Respiratory: Decreased breath sounds Cardiovascular/Chest: Normal inspection, Regular rate, Normal Rhythm Peripheral Pulses: 4+ Radial (R), 4+ Radial (L), 4+ Brachial (R), 4+ Brachial (L) Abdominal Exam: Normal bowel sounds Labs/Xrays Labs Test 01/21/25 07:25 01/21/25 05:40 01/20/25 06:09 01/19/25 00:46 Range/Units White Blood Count 20.8 #H 4.4-10.8 10^3/uL Red Blood Count 4.89 4.5-5.90 10^6/uL Hemoglobin 10.6 L 13.5-17.5 g/dL Hematocrit 36.0 L 41.0-53.0 % Mean Corpuscular Volume 73.5 L 80.0-100.0 fL Mean Corpuscular Hemoglobin 21.7 L 28.0-32.0 pg Mean Corpuscular Hemoglobin Concent 29.5 L 32.0-36.0 g/dL Red Cell Distribution Width 17.9 H 11.8-14.3 % Platelet Count 430 140-450 10^3/uL Mean Platelet Volume 7.1 6.9-10.8 fL Neutrophils (%) (Auto) 87.0 H 37.0-80.0 % Lymphocytes (%) (Auto) 4.6 L 10.0-50.0 % Monocytes (%) (Auto) 7.4 0.0-12.0 % Eosinophils (%) (Auto) 0.9 0.0-7.0 % Basophils (%) (Auto) 0.1 0.0-2.0 % Neutrophils # (Auto) 18.1 H 1.6-8.6 10 ^3/uL Lymphocytes # (Auto) 1.0 0.4-5.4 10 ^3/uL Monocytes # (Auto) 1.5 H 0-1.3 10 ^3/uL Eosinophils # (Auto) 0.2 0-0.8 10 ^3/uL Basophils # (Auto) 0 0-0.2 10 ^3/uL Nucleated Red Blood Cells 0.8 % Sodium Level 137 136-145 mmol/L Potassium Level 3.8 3.5-5.1 mmol/L Chloride Level 100 98-107 mmol/L Carbon Dioxide Level 30 20-31 mmol/L Anion Gap 7 5-15 Blood Urea Nitrogen 27 H 9-23 mg/dL Creatinine 0.79 0.700-1.30 mg/dL Glomerular Filtration Rate Calc 93 >90 mL/min BUN/Creatinine Ratio 34.2 H 10.0-20.0 Serum Glucose 328 H 74-106 mg/dL Calcium Level 9.4 8.7-10.4 mg/dL Phosphorus Level 3.2 2.4-5.1 mg/dL Magnesium Level 2.0 1.6-2.6 mg/dL Total Bilirubin 0.2 0.2-1.0 mg/dL Aspartate Amino Transferase (AST) 11 L 13-40 U/L Alanine Aminotransferase (ALT) 14 7-40 U/L Alkaline Phosphatase 79 46-116 U/L Total Protein 5.8 5.7-8.2 g/dL Albumin 3.5 3.2-4.8 g/dL POC Glucose 298 H 70-106 mg/dl Differential Total Cells Counted 100.0 100 Neutrophils % (Manual) 79 37.0-80.0 Band Neutrophils % (Manual) 5 Lymphocytes % (Manual) 6 L 10.0-50.0 Monocytes % (Manual) 10 0-12 Eosinophils % (Manual) 0 0-7 Basophils % (Manual) 0 0.0-2.0 Metamyelocytes % (manual) 0 Myelocytes % (Manual) 0 Promyelocytes % (Manual) 0 Blast Cells % (Manual) 0 Reactive Lymphocytes 0 Platelet Estimate Adequate Hypochromasia (manual) Moderate Microcytosis Moderate Vancomycin Level Trough 13.0 H 5-10 ug/mL Test 01/18/25 12:00 01/17/25 08:10 01/17/25 07:51 01/17/25 06:10 Range/Units Triglycerides Level 206 H < 150 mg/dL Lactic Acid Level 1.1 0.4-2.0 mmol/L Blood Gas Specimen Type Arterial Blood Gas Sample Site Left radial Blood Gas Patient Temperature 37.0 Arterial Blood Date Drawn [id number] Arterial Blood pH 7.360 7.350-7.450 Arterial Blood Partial Pressure CO2 45.1 35.0-48.0 mmHg Arterial Blood Partial Pressure O2 83.7 83.0-108.0 mmHg Arterial Blood HCO3 24.9 21.0-28.0 mmol/L Arterial Blood Oxygen Saturation 94.9 94.0-98.0 % Arterial Blood Base Excess -0.7 -2.0-3.0 mmol/L Arterial Blood Oxyhemoglobin 94.1 94.0-98.0 % Arterial Blood Carboxyhemoglobin 0.3 L 0.5-1.5 % Arterial Blood Methemoglobin 0.5 0.0-1.5 % Agustin Test Yes Blood Gas Total Hemoglobin 10.60 L 13.5-17.5 g/dL Blood Gas Set Respiration Rate 16.0 Blood Gas Modality Mask - bipap FiO2 % 30.0 Blood Gas EPAP 5 Blood Gas IPAP 12 Blood Gas Liter Flow 2.00 Test 01/17/25 05:02 01/16/25 20:45 01/15/25 01:59 01/15/25 01:28 Range/Units Blood Gas Spontaneous Rate 22 Blood Gas Critical Value Read Back Yes Blood Gas Notified Whom Dr. mirian martinez Blood Gas Notified Time [id number] Blood Gas Notified By Anders gutierrez electronic scale tester Hemoglobin A1c 7.2 H <5.7 % A1C Urine Color Light-yellow Yellow Urine Clarity Clear Clear Urine pH 6.0 5.0-9.0 Urine Specific [place] 1.018 1.001-1.035 Urine Protein Negative Negative Urine Ketones Negative Negative Urine Blood Negative Negative /uL Urine Nitrite Negative Negative Urine Bilirubin Negative Negative Urine Urobilinogen Normal Negative mg/dL Urine Leukocyte Esterase Negative Negative /uL Urine RBC <1 0 - 3 /hpf Urine Microscopic WBC 0-3 /HPF Urine Squamous Epithelial Cells None seen <5 /hpf Urine Bacteria None seen None Seen /hpf Urine Glucose 4+ H Normal mg/dL Troponin I High Sensitivity 4 </=54 ng/L Test 01/15/25 00:28 Range/Units Prothrombin Time 13.5 H 9.3-11.8 sec Prothrombin Time INR 1.31 H 0.9-1.15 Activated Partial Thromboplast Time 31.9 24.5-34.5 SEC B-Type Natriuretic Peptide 72.67 0-100 pg/mL Lipase 54 H 12-53 U/L Microbiology Date/Time Source Procedure Growth Status 01/15/25 00:28 Blood Blood Culture - Final NO GROWTH AFTER 5 DAYS OF INCUBATION. Complete Assessment/Plan Plan Impression Acute hypoxemic respiratory failure Morbid obesity COPD- stable SBO Patient seen and examined Events Low oxygen requirements On 2 liters nasal cannula Vital signs stable Labs and imaging reviewed Management Supplemental oxygen Titrate to maintain sats 90% or above Incentive spirometry Antibiotics Bronchodilators Monitor renal function Monitor electrolytes Supplement as needed Pain control Avoid oversedation F/u general surgery DVT prophylaxis Patient is at low to intermediate risk for postoperative pulmonary complications Okay to proceed to surgery if benefits outweigh risks Plan discussed with: Patient MIK COLLAZO MD January 21, 2025 16:24
--- NOTE | 2025-01-21 16:25 | DVHPN2 ---
Progress Note - Dictate Date Seen: January 21, 2025 Medical Necessity Reason Pt with a Central, PICC or Fol: No vital signs Vital Sign Date Time Temp Pulse Resp B/P (MAP) Pulse Ox O2 Delivery O2 Flow Rate FiO2 01/21/25 16:14 94 Nasal Cannula* 2 28 01/21/25 12:30 97.9 87 18 134/81 (98) 97.9 Total Intake and Output 01/20/25 01/20/25 01/21/25 15:00 23:00 07:00 Intake Total 850 ml 100 ml 200 ml Output Total 950 ml 1025 ml Balance 850 ml -850 ml -825 ml medications Current Medications Medications Dose Ordered Sig/Vincent Route Start Time Stop Time Status Last Admin Dose Admin Warfarin Sodium RX PROTOCOL PER PHARMACY PO 01/15/25 01:45 Cancel Albuterol 2.5 mg Q4HPRN PRN NEB 01/15/25 01:45 01/20/25 11:40 2.5 MG Ipratropium Normal 0.5 mg Q4HPRN PRN NEB 01/15/25 01:45 01/20/25 11:40 0.5 MG Acetaminophen/ Hydrocodone Bitart 1 tab Q4HP PRN PO 01/15/25 01:45 Hold 01/15/25 02:57 1 TAB Ondansetron HCl 4 mg Q4HP PRN IV 01/15/25 01:45 01/21/25 13:26 4 MG Docusate Sodium 100 mg BIDPRN PRN PO 01/15/25 01:45 Acetaminophen 650 mg Q6HP PRN PO 01/15/25 01:45 Nitroglycerin 0.4 mg Q5MINP PRN SL 01/15/25 01:45 Morphine Sulfate 2 mg Q30M PRN IV 01/15/25 01:45 01/18/25 10:49 2 MG Piperacillin Sod/ Tazobactam Sod 100 ml @ 25 mls/hr Q8HR IV 01/15/25 06:00 01/21/25 14:00 25 MLS/HR Pantoprazole Sodium 40 mg BID IV 01/15/25 10:00 01/21/25 09:01 40 MG Morphine Sulfate 2 mg Q4HPRN PRN IV 01/15/25 09:15 01/19/25 10:00 2 MG Amino Acids 0 ml @ 0 mls/hr PER PHARMACY IV 01/16/25 13:15 Sodium Chloride 10 ml QSHIFT@10,22 IV 01/16/25 22:00 01/21/25 10:00 10 ML Hydralazine HCl 10 mg Q6HP PRN IV 01/16/25 20:00 Lorazepam 0.5 mg Q6HP PRN IV 01/17/25 07:45 Diagnostic Test (Pha) 1 strip Q6HR 01/17/25 18:00 01/21/25 12:19 1 STRIP Insulin Human Regular FOLLOW SLIDING SCALE Q6HR SC 01/17/25 18:00 01/21/25 12:00 12 UNITS Dextrose 50 ml UD IV 01/17/25 18:00 Metoprolol Tartrate 2.5 mg Q6HPRN PRN IV 01/19/25 13:00 Fat Emulsion Intravenous 50 ml/ Potassium Chloride 10 meq/ Potassium Phosphate 50 meq/ Calcium Gluconate 2.3 meq/Magnesium Sulfate 10 meq/ Multivitamins 10 ml/Chromium/ Copper/Manganese/ Zinc 1 ml/Insulin Human Regular 24 units/Amino Acids/ Dextrose 1,285.0498 ml @ 53 mls/hr [id number] IV 01/20/25 22:00 01/21/25 21:59 01/20/25 21:41 53 MLS/HR Enoxaparin Sodium 110 mg Q12HR SC 01/20/25 22:00 01/21/25 10:00 110 MG Doxycycline Hyclate 100 ml @ 50 mls/hr Q12H IV 01/20/25 14:30 01/21/25 14:30 50 MLS/HR Morphine Sulfate 4 mg Q3HPRN PRN IV 01/20/25 18:30 01/21/25 12:22 4 MG Fat Emulsion Intravenous 50 ml/ Sodium Chloride 20 meq/Sodium Phosphate 20 meq/ Potassium Chloride 40 meq/ Magnesium Sulfate 12 meq/ Multivitamins 10 ml/Chromium/ Copper/Manganese/ Zinc 1 ml/Insulin Human Regular 32 units/Amino Acids/ Dextrose 1,394.32 ml @ 58 mls/hr Q24H3M IV 01/21/25 22:00 01/22/25 21:59 laboratory and microbiology Laboratory Tests 01/21/25 07:25 Test 01/21/25 07:25 Range/Units Serum Glucose 328 H 74-106 mg/dL Assessment/Plan Impression Acute hypoxemic respiratory failure Morbid obesity COPD- stable SBO Patient seen and examined Events Low oxygen requirements On 2 liters nasal cannula No acute events Labs and imaging reviewed Management Supplemental oxygen Titrate to maintain sats 90% or above Incentive spirometry Continue antibiotics F/u cultures Bronchodilators Monitor renal function Monitor electrolytes Supplement as needed Pain control Avoid oversedation F/u general surgery DVT prophylaxis Patient is at low to intermediate risk for postoperative pulmonary complications Okay to proceed to surgery if benefits outweigh risks Dietary Evaluation Review Comments: 1. Advance TPN to meet at least 75% estimated needs 2. Contineu current POC Expected Outcomes/Goals: To meet >75% estimated needs Fu 2-3 days Plan discussed with: Patient MIK COLLAZO MD January 21, 2025 16:25
[2025-01-21] MEDS: TPN PER PHARMACY IV NR (22:26)
[2025-01-22] VITALS (10 sets, daily range): BP systolic 109–149; BP diastolic 58–73; PULSE 68–86; RESP 18–20; TEMP 97.2–98.9; O2SAT 90–98
[2025-01-22] MEDS: LORazepam 2MG/ML-1ML VIAL IV PRN (04:30)
--- NOTE | 2025-01-22 06:43 | DVH ---
INDICATION: Check placement of NG tube TECHNIQUE: Frontal view of the chest. COMPARISON: XY CHEST PORTABLE on DOS: 01/21/25, XY CHEST XRAY 1 VIEW on DOS: 01/19/25, XY CHEST XRAY 1 VIEW on DOS: 01/17/25, XY CHEST XRAY 1 VIEW on DOS: 01/17/25, XY CHEST PORTABLE on DOS: 01/15/25, XY [place] [facility] PORTABLE on DOS: 01/21/25 FINDINGS: Lines and tubes: There is a right arm PICC line with tip in the right atrium. NG tube in stomach. Cardiomediastinal silhouette: Enlarged. Pulmonary vasculature: normal Lung expansion: normal Lung airspace: normal Lung interstitium: normal Pleura : normal Pneumothorax: no Bones: Unremarkable IMPRESSION: Nasogastric tip in Stomach. Otherwise no interval change.
[2025-01-22 08:25] LABS: Alanine Aminotransferase 13 U/L (7-40); Albumin 3.5 g/dL (3.2-4.8); Alkaline Phosphatase 81 U/L (46-116); Anion Gap 7 (5-15); BUN/Creatinine Ratio 31.2 (10.0-20.0); Calcium 9.4 mg/dL (8.7-10.4); Phosphorus 2.9 mg/dL (2.4-5.1); Potassium 3.7 mmol/L (3.5-5.1); Sodium 136 mmol/L (136-145); Total Protein 5.9 g/dL (5.7-8.2)
[2025-01-22 08:26] LABS: Aspartate Aminotransferase 9 U/L (13-40); Blood Urea Nitrogen 24 mg/dL (9-23); Carbon Dioxide 31 mmol/L (20-31); Chloride 98 mmol/L (98-107); Glucose 313 mg/dL (74-106)
[2025-01-22 08:27] LABS: Bilirubin, Total 0.2 mg/dL (0.2-1.0)
[2025-01-22 08:55] LABS: Magnesium 2.1 mg/dL (1.6-2.6)
--- NOTE | 2025-01-22 09:58 | CONS ---
Pharmacy Clinical Information: Patient is on TPN with 32 units regular insulin, plus aggressive sliding scale receiving 12-16 units each time. Recommend adding Lantus to assist with blood sugar control. BLAYNE WANG PHARMACIST January 22, 2025 09:58
--- NOTE | 2025-01-22 10:21 | DVHPN2 ---
Progress Note - Dictate Date Seen: January 22, 2025 Medical Necessity Reason Pt with a Central, PICC or Fol: No vital signs Vital Sign Date Time Temp Pulse Resp B/P (MAP) Pulse Ox O2 Delivery O2 Flow Rate FiO2 01/22/25 09:03 80 19 109/58 01/22/25 08:54 97.2 95 97.2 01/22/25 00:50 2.0 28 01/21/25 20:00 Nasal Cannula* Total Intake and Output 01/21/25 01/21/25 01/22/25 15:00 23:00 07:00 Intake Total 100 ml Output Total 1000 ml 250 ml Balance -1000 ml -150 ml medications Current Medications Medications Dose Ordered Sig/Vincent Route Start Time Stop Time Status Last Admin Dose Admin Warfarin Sodium RX PROTOCOL PER PHARMACY PO 01/15/25 01:45 Cancel Albuterol 2.5 mg Q4HPRN PRN NEB 01/15/25 01:45 01/20/25 11:40 2.5 MG Ipratropium [place] 0.5 mg Q4HPRN PRN NEB 01/15/25 01:45 01/20/25 11:40 0.5 MG Acetaminophen/ Hydrocodone Bitart 1 tab Q4HP PRN PO 01/15/25 01:45 Hold 01/15/25 02:57 1 TAB Ondansetron HCl 4 mg Q4HP PRN IV 01/15/25 01:45 01/22/25 09:03 4 MG Docusate Sodium 100 mg BIDPRN PRN PO 01/15/25 01:45 Acetaminophen 650 mg Q6HP PRN PO 01/15/25 01:45 Nitroglycerin 0.4 mg Q5MINP PRN SL 01/15/25 01:45 Morphine Sulfate 2 mg Q30M PRN IV 01/15/25 01:45 01/21/25 21:41 2 MG Piperacillin Sod/ Tazobactam Sod 100 ml @ 25 mls/hr Q8HR IV 01/15/25 06:00 01/22/25 05:14 25 MLS/HR Pantoprazole Sodium 40 mg BID IV 01/15/25 10:00 01/22/25 10:00 40 MG Morphine Sulfate 2 mg Q4HPRN PRN IV 01/15/25 09:15 01/22/25 09:03 2 MG Amino Acids 0 ml @ 0 mls/hr PER PHARMACY IV 01/16/25 13:15 Sodium Chloride 10 ml QSHIFT@10,22 IV 01/16/25 22:00 01/22/25 10:02 10 ML Hydralazine HCl 10 mg Q6HP PRN IV 01/16/25 20:00 Lorazepam 0.5 mg Q6HP PRN IV 01/17/25 07:45 01/22/25 04:30 0.5 MG Diagnostic Test (Pha) 1 strip Q6HR 01/17/25 18:00 01/22/25 05:53 1 STRIP Insulin Human Regular FOLLOW SLIDING SCALE Q6HR SC 01/17/25 18:00 01/22/25 05:57 16 UNITS Dextrose 50 ml UD IV 01/17/25 18:00 Metoprolol Tartrate 2.5 mg Q6HPRN PRN IV 01/19/25 13:00 Enoxaparin Sodium 110 mg Q12HR SC 01/20/25 22:00 01/22/25 10:01 110 MG Doxycycline Hyclate 100 ml @ 50 mls/hr Q12H IV 01/20/25 14:30 01/22/25 02:03 50 MLS/HR Morphine Sulfate 4 mg Q3HPRN PRN IV 01/20/25 18:30 01/22/25 01:58 4 MG Fat Emulsion Intravenous 50 ml/ Sodium Chloride 20 meq/Sodium Phosphate 20 meq/ Potassium Chloride 40 meq/ Magnesium Sulfate 12 meq/ Multivitamins 10 ml/Chromium/ Copper/Manganese/ Zinc 1 ml/Insulin Human Regular 32 units/Amino Acids/ Dextrose 1,394.32 ml @ 58 mls/hr Q24H3M IV 01/21/25 22:00 01/22/25 21:59 01/21/25 22:26 58 MLS/HR laboratory and microbiology Laboratory Tests 01/22/25 07:12 01/21/25 07:25 Test 01/22/25 07:12 Range/Units Serum Glucose 313 H 74-106 mg/dL Assessment/Plan Impression Acute hypoxemic respiratory failure Morbid obesity COPD- stable SBO Patient seen and examined Events Low oxygen requirements On 2 liters nasal cannula No distress Labs and imaging reviewed Management Supplemental oxygen Titrate to maintain sats 90% or above Incentive spirometry Continue antibiotics F/u cultures Bronchodilators Monitor renal function Monitor electrolytes Supplement as needed Pain control Avoid oversedation F/u general surgery DVT prophylaxis Patient is at low to intermediate risk for postoperative pulmonary complications Okay to proceed to surgery if benefits outweigh risks Dietary Evaluation Review Comments: 1. Advance TPN to meet at least 75% estimated needs 2. Contineu current POC Expected Outcomes/Goals: To meet >75% estimated needs Fu 2-3 days Plan discussed with: Patient MIK COLLAZO MD January 22, 2025 10:21
--- NOTE | 2025-01-22 13:34 | DVHPN2 ---
Subjective The patient is seen and examined at bedside. Complain of nausea or vomiting. Complain of pain despite getting morphine 4 mg every 3 hours and also [place] in between. Patient also received Zofran around the clock. Reviewed: Care Plan, H&P, Labs, Medications, Previous Orders, Radiology Changes from previous H/P or p: No Changes General: Per HPI Objective Vitals Vital Signs Date Time Temp Pulse Resp B/P (MAP) Pulse Ox O2 Delivery O2 Flow Rate FiO2 01/22/25 13:24 97.3 73 19 149/73 (98) 97 97.3 01/22/25 08:15 Nasal Cannula* 2 28 Intake/Output Intake and Output 01/22/25 07:00 Intake Total 100 ml Output Total 1250 ml Balance -1150 ml IV Total 100 ml Output Urine Total 1250 ml # Bowel Movements 1 General Appearance: Alert, Oriented X3, No acute distress HEENT: Atraumatic, PERRLA, EOMI, Mucous membr. moist/pink Neck: Supple Lungs: Clear to auscultation, Normal air movement Cardiovascular: Regular rate, Normal S1, Normal S2, No murmurs, Gallops, Rubs Abdomen: Normal bowel sounds, Soft, No tenderness Neuro: Cranial nerves 3-12 NL Psych/Mental Status: Mental status NL Medications Current Medications Medications Dose Ordered Sig/Vincent Route Start Time Stop Time Status Last Admin Dose Admin Warfarin Sodium RX PROTOCOL PER PHARMACY PO 01/15/25 01:45 Cancel Albuterol 2.5 mg Q4HPRN PRN NEB 01/15/25 01:45 01/20/25 11:40 2.5 MG Ipratropium [place] 0.5 mg Q4HPRN PRN NEB 01/15/25 01:45 01/20/25 11:40 0.5 MG Acetaminophen/ Hydrocodone Bitart 1 tab Q4HP PRN PO 01/15/25 01:45 Hold 01/15/25 02:57 1 TAB Ondansetron HCl 4 mg Q4HP PRN IV 01/15/25 01:45 01/22/25 09:03 4 MG Docusate Sodium 100 mg BIDPRN PRN PO 01/15/25 01:45 Acetaminophen 650 mg Q6HP PRN PO 01/15/25 01:45 Nitroglycerin 0.4 mg Q5MINP PRN SL 01/15/25 01:45 Morphine Sulfate 2 mg Q30M PRN IV 01/15/25 01:45 01/21/25 21:41 2 MG Piperacillin Sod/ Tazobactam Sod 100 ml @ 25 mls/hr Q8HR IV 01/15/25 06:00 01/22/25 05:14 25 MLS/HR Pantoprazole Sodium 40 mg BID IV 01/15/25 10:00 01/22/25 10:00 40 MG Morphine Sulfate 2 mg Q4HPRN PRN IV 01/15/25 09:15 01/22/25 09:03 2 MG Amino Acids 0 ml @ 0 mls/hr PER PHARMACY IV 01/16/25 13:15 Sodium Chloride 10 ml QSHIFT@10,22 IV 01/16/25 22:00 01/22/25 10:02 10 ML Hydralazine HCl 10 mg Q6HP PRN IV 01/16/25 20:00 Lorazepam 0.5 mg Q6HP PRN IV 01/17/25 07:45 01/22/25 04:30 0.5 MG Diagnostic Test (Pha) 1 strip Q6HR 01/17/25 18:00 01/22/25 12:11 1 STRIP Insulin Human Regular FOLLOW SLIDING SCALE Q6HR SC 01/17/25 18:00 01/22/25 12:12 12 UNITS Dextrose 50 ml UD IV 01/17/25 18:00 Metoprolol Tartrate 2.5 mg Q6HPRN PRN IV 01/19/25 13:00 Enoxaparin Sodium 110 mg Q12HR SC 01/20/25 22:00 01/22/25 10:01 110 MG Doxycycline Hyclate 100 ml @ 50 mls/hr Q12H IV 01/20/25 14:30 01/22/25 12:11 50 MLS/HR Morphine Sulfate 4 mg Q3HPRN PRN IV 01/20/25 18:30 01/22/25 01:58 4 MG Fat Emulsion Intravenous 50 ml/ Sodium Chloride 20 meq/Sodium Phosphate 20 meq/ Potassium Chloride 40 meq/ Magnesium Sulfate 12 meq/ Multivitamins 10 ml/Chromium/ Copper/Manganese/ Zinc 1 ml/Insulin Human Regular 32 units/Amino Acids/ Dextrose 1,394.32 ml @ 58 mls/hr Q24H3M IV 01/21/25 22:00 01/22/25 21:59 01/21/25 22:26 58 MLS/HR Fat Emulsion Intravenous 50 ml/ Sodium Chloride 40 meq/Sodium Phosphate 20 meq/ Potassium Chloride 40 meq/ Potassium Phosphate 22 meq/ Magnesium Sulfate 12 meq/ Multivitamins 10 ml/Chromium/ Copper/Manganese/ Zinc 1 ml/Insulin Human Regular 36 units/Amino Acids/ Dextrose 1,404.36 ml @ 58 mls/hr [id number] IV 01/22/25 22:00 01/23/25 21:59 Laboratory Results Laboratory Tests 01/21/25 07:25 01/22/25 07:12 Chemistry Test 01/22/25 07:12 Albumin 3.5 g/dL (3.2-4.8) Calcium Level 9.4 mg/dL (8.7-10.4) Magnesium Level 2.1 mg/dL (1.6-2.6) Phosphorus Level 2.9 mg/dL (2.4-5.1) Total Protein 5.9 g/dL (5.7-8.2) LFT Test 01/22/25 07:12 Alanine Aminotransferase (ALT) 13 U/L (7-40) Alkaline Phosphatase 81 U/L (46-116) Aspartate Amino Transferase (AST) 9 U/L (13-40) L Total Bilirubin 0.2 mg/dL (0.2-1.0) Urinalysis Test 01/15/25 01:59 Urine Color Light-yellow (Yellow) Urine Clarity Clear (Clear) Urine pH 6.0 (5.0-9.0) Urine Specific [place] 1.018 (1.001-1.035) Urine Protein Negative (Negative) Urine Ketones Negative (Negative) Urine Blood Negative /uL (Negative) Urine Nitrite Negative (Negative) Urine Bilirubin Negative (Negative) Urine Urobilinogen Normal mg/dL (Negative) Urine Leukocyte Esterase Negative /uL (Negative) Urine RBC <1 /hpf (0 - 3) Urine Microscopic WBC /HPF (0-3) Urine Squamous Epithelial Cells None seen /hpf (<5) Urine Bacteria None seen /hpf (None Seen) Urine Glucose 4+ mg/dL (Normal) H Microbiology Microbiology Date/Time Source Procedure Growth Status 01/15/25 00:28 Blood Blood Culture - Final NO GROWTH AFTER 5 DAYS OF INCUBATION. Complete Assessment/Plan Assessment/Plan Near syncope likely due to below Acute epigastric abdominal pain, intractable Perforated viscus and pneumoperitoneum, with history of gastric bypass Lactic acidosis, resolved Sepsis due to above Acute respiratory distress Diabetes with hyperglycemia AFib on Coumadin Tachypnea Lipase elevated, mild PLAN Continuing Antibiotics doxycycline/Zosyn (prior vanc/zosyn/azithro) Continuing TPN via picc line STOP Solu-Medrol for breathing, Solu-Medrol 40 IV b.i.d. Protonix 40 IV b.i.d. Continuing to keep NPO Surgery consult and follow up appreciated Sliding scale insulin moderate a.c. HS Discussed with RN. The patient is not in severe pain we will not change the pain frequency and increase dose of morphine. We keep the same dose morphine 4 mg IV q.3 hours prn Regarding to his nausea I am going to add Phenergan 25 mg IM every 6 hours in between Zofran to see if this help him with the nausea. This medical document was created using an electronic medical record system with [employer] direct computerized dictation system. Although this document has been carefully reviewed, there may still be some phonetic and typographical errors. These areas are purely typographical due to imperfections of the software programs, and do not reflect any compromise in the patient's medical care. Plan discussed with: Patient Date of Service: January 22, 2025 Billing Provider: LAWANDA SEARS MD Common Visit Codes: [id number] INP/OBS CARE(HIGH) LAWANDA SEARS MD January 22, 2025 13:34
[2025-01-22] MEDS: TPN PER PHARMACY IV NR (22:25)
[2025-01-23] VITALS (13 sets, daily range): BP systolic 108–178; BP diastolic 59–68; PULSE 71–75; RESP 18–20; TEMP 97.3–98.4; O2SAT 90–98
[2025-01-23 07:03] LABS: Alkaline Phosphatase 73 U/L (46-116); Anion Gap 6 (5-15); BUN/Creatinine Ratio 32.3 (10.0-20.0); Blood Urea Nitrogen 21 mg/dL (9-23); Calcium 8.9 mg/dL (8.7-10.4); Sodium 137 mmol/L (136-145)
[2025-01-23 07:05] LABS: Alanine Aminotransferase < 9 U/L (7-40); Aspartate Aminotransferase 9 U/L (13-40); Bilirubin, Total < 0.2 mg/dL (0.2-1.0); Carbon Dioxide 34 mmol/L (20-31); Chloride 97 mmol/L (98-107); Glucose 296 mg/dL (74-106); Phosphorus 2.3 mg/dL (2.4-5.1); Potassium 3.4 mmol/L (3.5-5.1); Total Protein 5.3 g/dL (5.7-8.2)
--- NOTE | 2025-01-23 14:24 | DVHPN2 ---
Subjective The patient is seen and examined at bedside. No complaint today Reviewed: Care Plan, H&P, Labs, Medications, Previous Orders, Radiology Changes from previous H/P or p: No Changes General: Per HPI Objective Vitals Vital Signs Date Time Temp Pulse Resp B/P (MAP) Pulse Ox O2 Delivery O2 Flow Rate FiO2 01/23/25 13:39 97.4 71 20 131/62 (85) 94 97.4 01/23/25 10:06 Nasal Cannula* 2 28 Intake/Output Intake and Output 01/23/25 07:00 Intake Total 2427.91 ml Output Total 1591 ml Balance 836.91 ml Intake Oral 0 ml IV Total 2427.91 ml Output Urine Total 1590 ml Stool Total 1 ml # Bowel Movements 1 General Appearance: Alert, Oriented X3, No acute distress HEENT: Atraumatic, PERRLA, EOMI, Mucous membr. moist/pink Neck: Supple Lungs: Clear to auscultation, Normal air movement Cardiovascular: Regular rate, Normal S1, Normal S2, No murmurs, Gallops, Rubs Abdomen: Normal bowel sounds, Soft, No tenderness Neuro: Cranial nerves 3-12 NL Psych/Mental Status: Mental status NL Medications Current Medications Medications Dose Ordered Sig/Vincent Route Start Time Stop Time Status Last Admin Dose Admin Warfarin Sodium RX PROTOCOL PER PHARMACY PO 01/15/25 01:45 Cancel Albuterol 2.5 mg Q4HPRN PRN NEB 01/15/25 01:45 01/20/25 11:40 2.5 MG Ipratropium [place] 0.5 mg Q4HPRN PRN NEB 01/15/25 01:45 01/20/25 11:40 0.5 MG Acetaminophen/ Hydrocodone Bitart 1 tab Q4HP PRN PO 01/15/25 01:45 Hold 01/15/25 02:57 1 TAB Ondansetron HCl 4 mg Q4HP PRN IV 01/15/25 01:45 01/23/25 12:29 4 MG Docusate Sodium 100 mg BIDPRN PRN PO 01/15/25 01:45 Acetaminophen 650 mg Q6HP PRN PO 01/15/25 01:45 Nitroglycerin 0.4 mg Q5MINP PRN SL 01/15/25 01:45 Morphine Sulfate 2 mg Q30M PRN IV 01/15/25 01:45 01/21/25 21:41 2 MG Piperacillin Sod/ Tazobactam Sod 100 ml @ 25 mls/hr Q8HR IV 01/15/25 06:00 01/23/25 14:17 25 MLS/HR Pantoprazole Sodium 40 mg BID IV 01/15/25 10:00 01/23/25 09:37 40 MG Morphine Sulfate 2 mg Q4HPRN PRN IV 01/15/25 09:15 01/22/25 09:03 2 MG Amino Acids 0 ml @ 0 mls/hr PER PHARMACY IV 01/16/25 13:15 Sodium Chloride 10 ml QSHIFT@10,22 IV 01/16/25 22:00 01/23/25 09:37 10 ML Hydralazine HCl 10 mg Q6HP PRN IV 01/16/25 20:00 Lorazepam 0.5 mg Q6HP PRN IV 01/17/25 07:45 01/23/25 05:58 0.5 MG Diagnostic Test (Pha) 1 strip Q6HR 01/17/25 18:00 01/23/25 12:10 1 STRIP Insulin Human Regular FOLLOW SLIDING SCALE Q6HR SC 01/17/25 18:00 01/23/25 12:28 12 UNITS Dextrose 50 ml UD IV 01/17/25 18:00 Metoprolol Tartrate 2.5 mg Q6HPRN PRN IV 01/19/25 13:00 Enoxaparin Sodium 110 mg Q12HR SC 01/20/25 22:00 01/23/25 09:37 110 MG Doxycycline Hyclate 100 ml @ 50 mls/hr Q12H IV 01/20/25 14:30 01/23/25 12:10 50 MLS/HR Morphine Sulfate 4 mg Q3HPRN PRN IV 01/20/25 18:30 01/23/25 12:29 4 MG Fat Emulsion Intravenous 50 ml/ Sodium Chloride 40 meq/Sodium Phosphate 20 meq/ Potassium Chloride 40 meq/ Potassium Phosphate 22 meq/ Magnesium Sulfate 12 meq/ Multivitamins 10 ml/Chromium/ Copper/Manganese/ Zinc 1 ml/Insulin Human Regular 36 units/Amino Acids/ Dextrose 1,404.36 ml @ 58 mls/hr [id number] IV 01/22/25 22:00 01/23/25 21:59 01/22/25 22:25 58 MLS/HR Fat Emulsion Intravenous 50 ml/ Sodium Chloride 40 meq/Sodium Phosphate 21 meq/ Potassium Chloride 60 meq/ Potassium Phosphate 21 meq/ Magnesium Sulfate 12 meq/ Multivitamins 10 ml/Chromium/ Copper/Manganese/ Zinc 1 ml/Insulin Human Regular 42 units/Amino Acids/ Dextrose 1,414.4427 ml @ 58 mls/hr [id number] IV 01/23/25 22:00 01/24/25 21:59 Laboratory Results Laboratory Tests 01/21/25 07:25 01/23/25 06:17 Chemistry Test 01/23/25 06:17 Albumin 3.0 g/dL (3.2-4.8) L Calcium Level 8.9 mg/dL (8.7-10.4) Magnesium Level 2.0 mg/dL (1.6-2.6) Phosphorus Level 2.3 mg/dL (2.4-5.1) L Total Protein 5.3 g/dL (5.7-8.2) L LFT Test 01/23/25 06:17 Alanine Aminotransferase (ALT) < 9 U/L (7-40) Alkaline Phosphatase 73 U/L (46-116) Aspartate Amino Transferase (AST) 9 U/L (13-40) L Total Bilirubin < 0.2 mg/dL (0.2-1.0) L Urinalysis Test 01/15/25 01:59 Urine Color Light-yellow (Yellow) Urine Clarity Clear (Clear) Urine pH 6.0 (5.0-9.0) Urine Specific [place] 1.018 (1.001-1.035) Urine Protein Negative (Negative) Urine Ketones Negative (Negative) Urine Blood Negative /uL (Negative) Urine Nitrite Negative (Negative) Urine Bilirubin Negative (Negative) Urine Urobilinogen Normal mg/dL (Negative) Urine Leukocyte Esterase Negative /uL (Negative) Urine RBC <1 /hpf (0 - 3) Urine Microscopic WBC /HPF (0-3) Urine Squamous Epithelial Cells None seen /hpf (<5) Urine Bacteria None seen /hpf (None Seen) Urine Glucose 4+ mg/dL (Normal) H Microbiology Microbiology Date/Time Source Procedure Growth Status 01/15/25 00:28 Blood Blood Culture - Final NO GROWTH AFTER 5 DAYS OF INCUBATION. Complete Labs and/or images reviewed: Labs reviewed by me Assessment/Plan Assessment/Plan Near syncope likely due to below Acute epigastric abdominal pain, intractable Perforated viscus and pneumoperitoneum, with history of gastric bypass Lactic acidosis, resolved Sepsis due to above Acute respiratory distress Diabetes with hyperglycemia AFib on Coumadin Tachypnea Lipase elevated, mild PLAN Continuing Antibiotics doxycycline/Zosyn (prior vanc/zosyn/azithro) Continuing TPN via picc line STOP Solu-Medrol for breathing, Solu-Medrol 40 IV b.i.d. Protonix 40 IV b.i.d. Continuing to keep NPO Surgery consult and follow up appreciated Sliding scale insulin moderate a.c. HS Discussed with RN. The patient is not in severe pain we will not change the pain frequency and increase dose of morphine. We keep the same dose morphine 4 mg IV q.3 hours prn Regarding to his nausea I am going to add Phenergan 25 mg IM every 6 hours in between Zofran to see if this help him with the nausea. This medical document was created using an electronic medical record system with [employer] direct computerized dictation system. Although this document has been carefully reviewed, there may still be some phonetic and typographical errors. These areas are purely typographical due to imperfections of the software programs, and do not reflect any compromise in the patient's medical care. Plan discussed with: Patient Date of Service: January 23, 2025 Billing Provider: LAWANDA SEARS MD Common Visit Codes: [id number] INP/OBS CARE(HIGH) LAWANDA SEARS MD January 23, 2025 14:23
--- NOTE | 2025-01-23 16:30 | DVHPN2 ---
Progress Note - Dictate Date Seen: January 23, 2025 Medical Necessity Reason Pt with a Central, PICC or Fol: No vital signs Vital Sign Date Time Temp Pulse Resp B/P (MAP) Pulse Ox O2 Delivery O2 Flow Rate FiO2 01/23/25 16:17 71 20 131/62 01/23/25 13:39 97.4 94 97.4 01/23/25 10:06 Nasal Cannula* 2 28 Total Intake and Output 01/22/25 01/22/25 01/23/25 15:00 23:00 07:00 Intake Total 1604.36 ml 823.55 ml Output Total 900 ml 691 ml Balance 704.36 ml 132.55 ml medications Current Medications Medications Dose Ordered Sig/Vincent Route Start Time Stop Time Status Last Admin Dose Admin Warfarin Sodium RX PROTOCOL PER PHARMACY PO 01/15/25 01:45 Cancel Albuterol 2.5 mg Q4HPRN PRN NEB 01/15/25 01:45 01/20/25 11:40 2.5 MG Ipratropium [place] 0.5 mg Q4HPRN PRN NEB 01/15/25 01:45 01/20/25 11:40 0.5 MG Acetaminophen/ Hydrocodone Bitart 1 tab Q4HP PRN PO 01/15/25 01:45 Hold 01/15/25 02:57 1 TAB Ondansetron HCl 4 mg Q4HP PRN IV 01/15/25 01:45 01/23/25 12:29 4 MG Docusate Sodium 100 mg BIDPRN PRN PO 01/15/25 01:45 Acetaminophen 650 mg Q6HP PRN PO 01/15/25 01:45 Nitroglycerin 0.4 mg Q5MINP PRN SL 01/15/25 01:45 Morphine Sulfate 2 mg Q30M PRN IV 01/15/25 01:45 01/21/25 21:41 2 MG Piperacillin Sod/ Tazobactam Sod 100 ml @ 25 mls/hr Q8HR IV 01/15/25 06:00 01/23/25 14:17 25 MLS/HR Pantoprazole Sodium 40 mg BID IV 01/15/25 10:00 01/23/25 09:37 40 MG Morphine Sulfate 2 mg Q4HPRN PRN IV 01/15/25 09:15 01/22/25 09:03 2 MG Amino Acids 0 ml @ 0 mls/hr PER PHARMACY IV 01/16/25 13:15 Sodium Chloride 10 ml QSHIFT@10,22 IV 01/16/25 22:00 01/23/25 09:37 10 ML Hydralazine HCl 10 mg Q6HP PRN IV 01/16/25 20:00 Lorazepam 0.5 mg Q6HP PRN IV 01/17/25 07:45 01/23/25 05:58 0.5 MG Diagnostic Test (Pha) 1 strip Q6HR 01/17/25 18:00 01/23/25 12:10 1 STRIP Insulin Human Regular FOLLOW SLIDING SCALE Q6HR SC 01/17/25 18:00 01/23/25 12:28 12 UNITS Dextrose 50 ml UD IV 01/17/25 18:00 Metoprolol Tartrate 2.5 mg Q6HPRN PRN IV 01/19/25 13:00 Enoxaparin Sodium 110 mg Q12HR SC 01/20/25 22:00 01/23/25 09:37 110 MG Doxycycline Hyclate 100 ml @ 50 mls/hr Q12H IV 01/20/25 14:30 01/23/25 12:10 50 MLS/HR Morphine Sulfate 4 mg Q3HPRN PRN IV 01/20/25 18:30 01/23/25 16:17 4 MG Fat Emulsion Intravenous 50 ml/ Sodium Chloride 40 meq/Sodium Phosphate 20 meq/ Potassium Chloride 40 meq/ Potassium Phosphate 22 meq/ Magnesium Sulfate 12 meq/ Multivitamins 10 ml/Chromium/ Copper/Manganese/ Zinc 1 ml/Insulin Human Regular 36 units/Amino Acids/ Dextrose 1,404.36 ml @ 58 mls/hr [id number] IV 01/22/25 22:00 01/23/25 21:59 01/22/25 22:25 58 MLS/HR Fat Emulsion Intravenous 50 ml/ Sodium Chloride 40 meq/Sodium Phosphate 21 meq/ Potassium Chloride 60 meq/ Potassium Phosphate 21 meq/ Magnesium Sulfate 12 meq/ Multivitamins 10 ml/Chromium/ Copper/Manganese/ Zinc 1 ml/Insulin Human Regular 42 units/Amino Acids/ Dextrose 1,414.4427 ml @ 58 mls/hr [id number] IV 01/23/25 22:00 01/24/25 21:59 laboratory and microbiology Laboratory Tests 01/23/25 06:17 5/24/25 07:25 Test 01/23/25 06:17 Range/Units Serum Glucose 296 H 74-106 mg/dL Assessment/Plan Impression Acute hypoxemic respiratory failure Morbid obesity COPD- stable SBO Patient seen and examined Events Low oxygen requirements On 2 liters nasal cannula No acute events Labs and imaging reviewed Management Supplemental oxygen Titrate to maintain sats 90% or above Incentive spirometry Continue antibiotics F/u cultures Bronchodilators Monitor renal function Monitor electrolytes Supplement as needed Pain control Avoid oversedation F/u general surgery DVT prophylaxis Dietary Evaluation Review Comments: 1. Advance TPN to meet at least 75% estimated needs 2. Contineu current POC Expected Outcomes/Goals: To meet >75% estimated needs Fu 2-3 days Plan discussed with: Patient MIK COLLAZO MD January 23, 2025 16:30
--- NOTE | 2025-01-23 17:24 | DVH ---
Exam: CT CT AB PEL WO CON-NO ORAL OR IV History: s/p UGI, PUD Comparison Study: CT CT AB PEL WITH ORAL CON ONLY on DOS: 01/18/25, CT CT AB PEL WO CON-NO ORAL OR IV on DOS: 01/16/25, CT CT AB PEL WO CON-NO ORAL OR IV on DOS: 01/15/25 TECHNIQUE: Multidetector CT of the abdomen was performed from lung bases to pubic symphysis. Imaging was performed without IV contrast. Axial, coronal and sagittal multiplanar reformats were obtained fr om the axial data set by the technologist. Radiation Dose Information: CT Dose: CTDI volume is 26.44 mGy. Dose-length product is 1599.47 mGy*cm FINDINGS: Evaluation of solid organs is limited due to lack of intravenous contrast use. Findings: Lung Bases: No acute or significant lung base finding. Atelectasis seen in the left lung base Normal heart size. There is coronary calcification suggesting coronary artery disease. Moderate left-sided pleural effusion. No pericardial effusion. There is a nasogastric tube with the tip in the stomach. Liver: The liver is normal in size. No focal lesions. Gallbladder and Biliary Tree: Unremarkable Spleen: Self appears to be normal. In the lateral aspect seen there is a fluid collection with air cochran ggestive of an abscess measuring 17.4 x 10.0 cm. Pancreas: The pancreas is grossly normal in appearance. Adrenal Glands: Unremarkable Kidneys: Left kidney in the midpole large exophytic mass with cystic and solid component measuring 7. 5 x 7.8 cm. Bladder: Grossly unremarkable for degree of distention. Bowel: The stomach is grossly normal in appearance. Oral contrast in the small and large bowels. Smal l bowels appear to be mildly dilated suggesting of adynamic ileus.. The appendix is not visualized; however, no secondary findings of acute appendicitis identified. Ascites: Absent Lymphadenopathy: No mesenteric, retroperitoneal or periportal lymphadenopathy. Abdominal Wall and Mesentery: Unremarkable. Vasculature: The visualized abdominal aorta is normal in size and caliber. Diffuse atherosclerotic ch phuong of the abdominal aorta iliac vessels with calcified plaque. Evaluation of abdominal and pelvic v essels is limited due to lack of intravenous contrast. Pelvic Organs: Unremarkable the urinary bladder as a Marquez catheter in place. Musculoskeletal: No aggressive focal bony lesions, acute fractures or dislocation. Multilevel osteoar thritic changes with marginal spurs and disc disease with vacuum phenomena. Most pronounced at L5-S1. Soft tissues: Unremarkable IMPRESSION: 1. Posterior aspect of the spleen there is a fluid collection with air pockets measuring approximatel y 17 x 10 cm. 2. Left kidney has an exophytic renal mass with cystic and solid measuring 7.5 x 7.8 cm 3. Adynamic ileus 4. Moderate left-sided pleural effusion 5. Coronary calcification coronary artery disease Radiation optimization: All CT scans at this facility use at least one of these dose optimization monica hniques: automated exposure control mA and/or kV adjustment per patient size (includes targeted exam s where dose is matched to clinical indication) or iterative reconstruction.
[2025-01-23] MEDS: TPN PER PHARMACY IV NR (22:09)
[2025-01-24] VITALS (10 sets, daily range): BP systolic 121–148; BP diastolic 62–77; PULSE 67–80; RESP 17–19; TEMP 97.3–98.1; O2SAT 90–98
[2025-01-24 07:31] LABS: Alanine Aminotransferase 11 U/L (7-40); Alkaline Phosphatase 81 U/L (46-116); Anion Gap 5 (5-15); Aspartate Aminotransferase 15 U/L (13-40); BUN/Creatinine Ratio 30.8 (10.0-20.0); Blood Urea Nitrogen 20 mg/dL (9-23); Magnesium 2.2 mg/dL (1.6-2.6); Potassium 4.4 mmol/L (3.5-5.1)
[2025-01-24 07:32] LABS: Bilirubin, Total < 0.2 mg/dL (0.2-1.0); Calcium 8.3 mg/dL (8.7-10.4); Carbon Dioxide 33 mmol/L (20-31); Chloride 97 mmol/L (98-107); Phosphorus 3.8 mg/dL (2.4-5.1); Sodium 135 mmol/L (136-145); Total Protein 5.6 g/dL (5.7-8.2)
[2025-01-24 07:35] LABS: Glucose 431 mg/dL (74-106)
[2025-01-24] MEDS: EZ-GAS II GRANULES (RADIOLOGY USE) PO ONE (08:44)
[2025-01-24] MEDS: GASTROGRAFIN 120 ML SOL ONE (08:44)
[2025-01-24 10:42] LABS: Hemoglobin 9.6 g/dL (13.5-17.5)
[2025-01-24 10:47] LABS: Hematocrit 32.6 % (41.0-53.0); Mean Corpuscular Hemoglobin 21.8 pg (28.0-32.0); Mean Corpuscular Hgb Conc. 29.4 g/dL (32.0-36.0); Platelet Count (auto) 437 10^3/uL (140-450); Red Blood Cells 4.41 10^6/uL (4.5-5.90); Red Cell Distribution Width 18.3 % (11.8-14.3); White Blood Cell 21.8 10^3/uL (4.4-10.8)
[2025-01-24 11:04] LABS: Basophils % (manual) 0 (0.0-2.0); Blast Cells 0; Eosinophils % (manual) 0 (0-7); Metamyelocytes % 0; Myelocytes % 0; Promyelocytes % 0; Reactive Lymphocytes 0
[2025-01-24 11:14] LABS: INR 0.97 (0.9-1.15); Partial Thromboplastin Time 26.7 SEC (24.5-34.5); Prothrombin Time 10.3 sec (9.3-11.8)
--- NOTE | 2025-01-24 12:05 | DVHPN2 ---
Subjective The patient is seen and examined at bedside. No complaint today Reviewed: Care Plan, H&P, Labs, Medications, Previous Orders, Radiology Changes from previous H/P or p: No Changes General: Per HPI Objective Vitals Vital Signs Date Time Temp Pulse Resp B/P (MAP) Pulse Ox O2 Delivery O2 Flow Rate FiO2 01/24/25 08:42 98.1 70 19 123/75 (91) 90 98.1 01/24/25 07:22 Nasal Cannula* 2 28 Intake/Output Intake and Output 01/24/25 07:00 Intake Total 555.63 ml Output Total 2200 ml Balance -1644.37 ml Intake Oral 0 ml IV Total 555.63 ml Output Urine Total 2200 ml # Bowel Movements 2 General Appearance: Alert, Oriented X3, No acute distress HEENT: Atraumatic, PERRLA, EOMI, Mucous membr. moist/pink Neck: Supple Lungs: Clear to auscultation, Normal air movement Cardiovascular: Regular rate, Normal S1, Normal S2, No murmurs, Gallops, Rubs Abdomen: Normal bowel sounds, Soft, No tenderness Neuro: Cranial nerves 3-12 NL Psych/Mental Status: Mental status NL Medications Current Medications Medications Dose Ordered Sig/Vincent Route Start Time Stop Time Status Last Admin Dose Admin Warfarin Sodium RX PROTOCOL PER PHARMACY PO 01/15/25 01:45 Cancel Albuterol 2.5 mg Q4HPRN PRN NEB 01/15/25 01:45 01/23/25 21:50 2.5 MG Ipratropium [place] 0.5 mg Q4HPRN PRN NEB 01/15/25 01:45 01/23/25 21:50 0.5 MG Acetaminophen/ Hydrocodone Bitart 1 tab Q4HP PRN PO 01/15/25 01:45 Hold 01/15/25 02:57 1 TAB Ondansetron HCl 4 mg Q4HP PRN IV 01/15/25 01:45 01/24/25 09:49 4 MG Docusate Sodium 100 mg BIDPRN PRN PO 01/15/25 01:45 Acetaminophen 650 mg Q6HP PRN PO 01/15/25 01:45 Nitroglycerin 0.4 mg Q5MINP PRN SL 01/15/25 01:45 Piperacillin Sod/ Tazobactam Sod 100 ml @ 25 mls/hr Q8HR IV 01/15/25 06:00 01/24/25 05:02 25 MLS/HR Pantoprazole Sodium 40 mg BID IV 01/15/25 10:00 01/24/25 09:43 40 MG Morphine Sulfate 2 mg Q4HPRN PRN IV 01/15/25 09:15 01/24/25 08:07 2 MG Amino Acids 0 ml @ 0 mls/hr PER PHARMACY IV 01/16/25 13:15 Sodium Chloride 10 ml QSHIFT@10,22 IV 01/16/25 22:00 01/24/25 09:43 10 ML Hydralazine HCl 10 mg Q6HP PRN IV 01/16/25 20:00 Lorazepam 0.5 mg Q6HP PRN IV 01/17/25 07:45 01/23/25 05:58 0.5 MG Diagnostic Test (Pha) 1 strip Q6HR 01/17/25 18:00 01/24/25 05:10 1 STRIP Insulin Human Regular FOLLOW SLIDING SCALE Q6HR SC 01/17/25 18:00 01/24/25 05:17 12 UNITS Dextrose 50 ml UD IV 01/17/25 18:00 Metoprolol Tartrate 2.5 mg Q6HPRN PRN IV 01/19/25 13:00 Enoxaparin Sodium 110 mg Q12HR SC 01/20/25 22:00 01/23/25 21:36 110 MG Doxycycline Hyclate 100 ml @ 50 mls/hr Q12H IV 01/20/25 14:30 01/24/25 02:37 50 MLS/HR Morphine Sulfate 4 mg Q3HPRN PRN IV 01/20/25 18:30 01/24/25 05:03 4 MG Fat Emulsion Intravenous 50 ml/ Sodium Chloride 40 meq/Sodium Phosphate 21 meq/ Potassium Chloride 60 meq/ Potassium Phosphate 21 meq/ Magnesium Sulfate 12 meq/ Multivitamins 10 ml/Chromium/ Copper/Manganese/ Zinc 1 ml/Insulin Human Regular 42 units/Amino Acids/ Dextrose 1,414.4427 ml @ 58 mls/hr [id number] IV 01/23/25 22:00 01/24/25 21:59 01/23/25 22:09 58 MLS/HR Fat Emulsion Intravenous 100 ml/Sodium Chloride 60 meq/ Sodium Phosphate 10 meq/Potassium Chloride 20 meq/ Magnesium Sulfate 12 meq/ Multivitamins 10 ml/Chromium/ Copper/Manganese/ Zinc 1 ml/Insulin Human Regular 45 units/Amino Acids/ Dextrose 1,441.95 ml @ 60 mls/hr Q24H2M IV 01/24/25 22:00 01/25/25 21:59 Laboratory Results Laboratory Tests 01/24/25 06:45 01/24/25 09:50 Chemistry Test 01/24/25 06:45 Albumin 3.0 g/dL (3.2-4.8) L Calcium Level 8.3 mg/dL (8.7-10.4) L Magnesium Level 2.2 mg/dL (1.6-2.6) Phosphorus Level 3.8 mg/dL (2.4-5.1) Total Protein 5.6 g/dL (5.7-8.2) L Coagulation Test 01/24/25 09:50 Prothrombin Time 10.3 sec (9.3-11.8) Prothrombin Time INR 0.97 (0.9-1.15) Activated Partial Thromboplast Time 26.7 SEC (24.5-34.5) LFT Test 01/24/25 06:45 Alanine Aminotransferase (ALT) 11 U/L (7-40) Alkaline Phosphatase 81 U/L (46-116) Aspartate Amino Transferase (AST) 15 U/L (13-40) Total Bilirubin < 0.2 mg/dL (0.2-1.0) L Urinalysis Test 01/15/25 01:59 Urine Color Light-yellow (Yellow) Urine Clarity Clear (Clear) Urine pH 6.0 (5.0-9.0) Urine Specific [place] 1.018 (1.001-1.035) Urine Protein Negative (Negative) Urine Ketones Negative (Negative) Urine Blood Negative /uL (Negative) Urine Nitrite Negative (Negative) Urine Bilirubin Negative (Negative) Urine Urobilinogen Normal mg/dL (Negative) Urine Leukocyte Esterase Negative /uL (Negative) Urine RBC <1 /hpf (0 - 3) Urine Microscopic WBC /HPF (0-3) Urine Squamous Epithelial Cells None seen /hpf (<5) Urine Bacteria None seen /hpf (None Seen) Urine Glucose 4+ mg/dL (Normal) H Microbiology Microbiology Date/Time Source Procedure Growth Status 01/15/25 00:28 Blood Blood Culture - Final NO GROWTH AFTER 5 DAYS OF INCUBATION. Complete Labs and/or images reviewed: Labs reviewed by me Assessment/Plan Assessment/Plan Near syncope likely due to below Acute epigastric abdominal pain, intractable Perforated viscus and pneumoperitoneum, with history of gastric bypass Lactic acidosis, resolved Sepsis due to above Acute respiratory distress Diabetes with hyperglycemia AFib on Coumadin Tachypnea Lipase elevated, mild PLAN Continuing Antibiotics doxycycline/Zosyn (prior vanc/zosyn/azithro) Continuing TPN via picc line STOP Solu-Medrol for breathing, Solu-Medrol 40 IV b.i.d. Protonix 40 IV b.i.d. Continuing to keep NPO Surgery consult and follow up appreciated Sliding scale insulin moderate a.c. HS Discussed with RN. The patient is not in severe pain we will not change the pain frequency and increase dose of morphine. We keep the same dose morphine 4 mg IV q.3 hours prn Regarding to his nausea I am going to add Phenergan 25 mg IM every 6 hours in between Zofran to see if this help him with the nausea. This medical document was created using an electronic medical record system with [employer] direct computerized dictation system. Although this document has been carefully reviewed, there may still be some phonetic and typographical errors. These areas are purely typographical due to imperfections of the software programs, and do not reflect any compromise in the patient's medical care. Plan discussed with: Patient Date of Service: January 24, 2025 Billing Provider: LAWANDA SEARS MD Common Visit Codes: [id number] INP/OBS CARE(HIGH) LAWANDA SEARS MD January 24, 2025 12:05
[2025-01-24 12:24] LABS: Band Neutrophils % (manual) 5; Hypochromia Moderate; Lymphocytes % (manual) 4 (10.0-50.0); Monocytes % (manual) 7 (0-12); Platelet Estimate Adequate
--- NOTE | 2025-01-24 20:15 | DVHPN2 ---
Progress Note - Dictate Date Seen: January 24, 2025 Medical Necessity Reason Pt with a Central, PICC or Fol: No vital signs Vital Sign Date Time Temp Pulse Resp B/P (MAP) Pulse Ox O2 Delivery O2 Flow Rate FiO2 01/24/25 18:29 93 Nasal Cannula* 2 28 01/24/25 17:00 97.3 70 17 148/77 (100) 97.3 Total Intake and Output 01/23/25 01/23/25 01/24/25 15:00 23:00 07:00 Intake Total 255.63 ml 100 ml 200 ml Output Total 1200 ml 1000 ml Balance 255.63 ml -1100 ml -800 ml medications Current Medications Medications Dose Ordered Sig/Vincent Route Start Time Stop Time Status Last Admin Dose Admin Warfarin Sodium RX PROTOCOL PER PHARMACY PO 01/15/25 01:45 Cancel Albuterol 2.5 mg Q4HPRN PRN NEB 01/15/25 01:45 01/23/25 21:50 2.5 MG Ipratropium [place] 0.5 mg Q4HPRN PRN NEB 01/15/25 01:45 01/23/25 21:50 0.5 MG Acetaminophen/ Hydrocodone Bitart 1 tab Q4HP PRN PO 01/15/25 01:45 Hold 01/15/25 02:57 1 TAB Ondansetron HCl 4 mg Q4HP PRN IV 01/15/25 01:45 01/24/25 16:13 4 MG Docusate Sodium 100 mg BIDPRN PRN PO 01/15/25 01:45 Acetaminophen 650 mg Q6HP PRN PO 01/15/25 01:45 Nitroglycerin 0.4 mg Q5MINP PRN SL 01/15/25 01:45 Piperacillin Sod/ Tazobactam Sod 100 ml @ 25 mls/hr Q8HR IV 01/15/25 06:00 01/24/25 12:54 25 MLS/HR Pantoprazole Sodium 40 mg BID IV 01/15/25 10:00 01/24/25 09:43 40 MG Amino Acids 0 ml @ 0 mls/hr PER PHARMACY IV 01/16/25 13:15 Sodium Chloride 10 ml QSHIFT@10,22 IV 01/16/25 22:00 01/24/25 09:43 10 ML Hydralazine HCl 10 mg Q6HP PRN IV 01/16/25 20:00 Lorazepam 0.5 mg Q6HP PRN IV 01/17/25 07:45 01/23/25 05:58 0.5 MG Diagnostic Test (Pha) 1 strip Q6HR 01/17/25 18:00 01/24/25 18:00 1 STRIP Insulin Human Regular FOLLOW SLIDING SCALE Q6HR SC 01/17/25 18:00 01/24/25 17:39 12 UNITS Dextrose 50 ml UD IV 01/17/25 18:00 Metoprolol Tartrate 2.5 mg Q6HPRN PRN IV 01/19/25 13:00 Enoxaparin Sodium 110 mg Q12HR SC 01/20/25 22:00 01/23/25 21:36 110 MG Doxycycline Hyclate 100 ml @ 50 mls/hr Q12H IV 01/20/25 14:30 01/24/25 16:13 50 MLS/HR Morphine Sulfate 4 mg Q3HPRN PRN IV 01/20/25 18:30 01/24/25 16:13 4 MG Fat Emulsion Intravenous 50 ml/ Sodium Chloride 40 meq/Sodium Phosphate 21 meq/ Potassium Chloride 60 meq/ Potassium Phosphate 21 meq/ Magnesium Sulfate 12 meq/ Multivitamins 10 ml/Chromium/ Copper/Manganese/ Zinc 1 ml/Insulin Human Regular 42 units/Amino Acids/ Dextrose 1,414.4427 ml @ 58 mls/hr [id number] IV 01/23/25 22:00 01/24/25 21:59 01/23/25 22:09 58 MLS/HR Fat Emulsion Intravenous 100 ml/Sodium Chloride 60 meq/ Sodium Phosphate 10 meq/Potassium Chloride 20 meq/ Magnesium Sulfate 12 meq/ Multivitamins 10 ml/Chromium/ Copper/Manganese/ Zinc 1 ml/Insulin Human Regular 45 units/Amino Acids/ Dextrose 1,441.95 ml @ 60 mls/hr Q24H2M IV 01/24/25 22:00 01/25/25 21:59 laboratory and microbiology Laboratory Tests 01/24/25 09:50 01/24/25 06:45 Test 01/24/25 06:45 Range/Units Serum Glucose 431 #*H 74-106 mg/dL Assessment/Plan Impression Acute hypoxemic respiratory failure Morbid obesity COPD- stable SBO Patient seen and examined Events Low oxygen requirements On 2 liters nasal cannula No distress Labs and imaging reviewed Management Supplemental oxygen Titrate to maintain sats 90% or above Incentive spirometry Continue antibiotics F/u cultures Bronchodilators Monitor renal function Monitor electrolytes Supplement as needed Pain control Avoid oversedation F/u general surgery DVT prophylaxis Dietary Evaluation Review Comments: 1. Advance TPN to meet at least 75% estimated needs 2. Contineu current POC Expected Outcomes/Goals: To meet >75% estimated needs Fu 2-3 days Plan discussed with: Patient MIK COLLAZO MD January 24, 2025 20:15
[2025-01-24] MEDS: TPN PER PHARMACY IV NR (22:05)
[2025-01-25] VITALS (10 sets, daily range): BP systolic 113–140; BP diastolic 35–72; PULSE 65–72; RESP 17–18; TEMP 97.5–98.5; O2SAT 90–98
--- NOTE | 2025-01-25 04:15 | DVH ---
Examination: RUDVT CLINICAL INDICATION: RT ARM SWELLING COMPARISON: None. TECHNIQUE: Using real-time ultrasonic imaging and color Doppler the deep venous system of the right upper extremity was studied from the neck to the hand. FINDINGS: Partial thrombus is seen in the right brachial vein along the PICC line. Normal augmentation, compression and blood flow characteristics were observed in the right internal j ugular, subclavian, axillary, basilic, cephalic, radial and ulnar veins. No evidence of deep venous thrombosis could be seen. Diffuse subcutaneous edema in the forearm. IMPRESSION: Partial thrombus is seen in the right brachial vein along the PICC line. Left jugular, subclavian, axillary basilic, cephalic, radial and ulnar veins are patent with normal compressibility and waveform. Electronically Signed 01/25/2025 04:14 Stephanie Jon
[2025-01-25] MEDS: MIDAZOLAM HCL 2MG/2ML 2ml VIAL (1mg/ml) IV ONE (07:45)
[2025-01-25] MEDS: fentaNYL CITRATE 100 MCG/2 ML VL IV ONE (07:45)
[2025-01-25] MEDS: LIDOCAINE 2%HCL (LOCAL ANESTH.) INJ 10ml MDV ONE (08:13)
--- NOTE | 2025-01-25 10:18 | DVH ---
CT ABDOMEN WITHOUT CONTRAST, HISTORY: SPLENIC ABSCESS DRAINAGE COMPARISON: None PROCEDURE: Informed consent was obtained. The patient was placed supine on the CT scanner. IV sedatio n was administered. The fluid collection was localized under CT scan and the overlying skin prepped w ith chlorhexidine which was allowed to dry and draped in the usual sterile fashion and infiltrated wi th Xylocaine. Time out was performed. With US/CT guidance, a 19-gauge centesis needle catheter was ad vanced via trans-peritoneal approach into the fluid collection. Following aspiration of a small amoun t of fluid, a 0.035 wire was advanced into the fluid collection. Placement was confirmed with CT scan . After serial dilatation, a 8 [place] multipurpose pigtail drain was placed into the collection. Appr oximately 230 cc of purulent fluid was aspirated, with specimen sent for appropriate laboratory/cytol ogy/laboratory and cytology evaluation. The drain was sutured at the skin surface and connected to cochran ction drainage. No immediate complication was noted. Post procedure CT imaging through the drain site was obtained. DLP = 2228 mGy-cm. SEDATION: Dr. Jeanna Hein was personally responsible for the administration of moderate sedation during the procedure performed, including the use of an independent trained observer who had no other duties during the procedure. The drugs utilized were IV fentanyl and versed (see nursing log for details). The total time of supervision by the attending physician was approximately 45 minutes. FINDINGS: Limited CT scan of through the abdomen demonstrates a medium sized fluid collection in the perisplenic space. Collection appears complex. Post procedure scan shows pigtail drain within the col lection , which is decreased in size. No immediate complication was identified. IMPRESSION: US/CT guided placement of 8 sinhal[place] pigtail drain into a perisplenic abscess with 230 mL purulent flui d aspirated. PLAN: Routine tube care.
--- NOTE | 2025-01-25 11:33 | DVHPN2 ---
Subjective The patient is seen and examined at bedside. No complaint today Reviewed: Care Plan, H&P, Labs, Medications, Previous Orders, Radiology Changes from previous H/P or p: No Changes General: Per HPI Objective Vitals Vital Signs Date Time Temp Pulse Resp B/P (MAP) Pulse Ox O2 Delivery O2 Flow Rate FiO2 01/25/25 10:04 68 18 121/57 01/25/25 09:00 97.8 90 97.8 01/25/25 06:40 Nasal Cannula* 3 32 Intake/Output Intake and Output 01/25/25 07:00 Intake Total 550 ml Output Total 1400 ml Balance -850 ml Intake Oral 450 ml IV Total 100 ml Output Urine Total 1300 ml Gastric Drainage Total 100 ml # Bowel Movements 2 General Appearance: Alert, Oriented X3, No acute distress HEENT: Atraumatic, PERRLA, EOMI, Mucous membr. moist/pink Neck: Supple Lungs: Clear to auscultation, Normal air movement Cardiovascular: Regular rate, Normal S1, Normal S2, No murmurs, Gallops, Rubs Abdomen: Normal bowel sounds, Soft, No tenderness Neuro: Cranial nerves 3-12 NL Psych/Mental Status: Mental status NL Medications Current Medications Medications Dose Ordered Sig/Vincent Route Start Time Stop Time Status Last Admin Dose Admin Warfarin Sodium RX PROTOCOL PER PHARMACY PO 01/15/25 01:45 Cancel Albuterol 2.5 mg Q4HPRN PRN NEB 01/15/25 01:45 01/25/25 06:40 2.5 MG Ipratropium [place] 0.5 mg Q4HPRN PRN NEB 01/15/25 01:45 01/23/25 21:50 0.5 MG Acetaminophen/ Hydrocodone Bitart 1 tab Q4HP PRN PO 01/15/25 01:45 Hold 01/15/25 02:57 1 TAB Ondansetron HCl 4 mg Q4HP PRN IV 01/15/25 01:45 01/25/25 10:03 4 MG Docusate Sodium 100 mg BIDPRN PRN PO 01/15/25 01:45 Acetaminophen 650 mg Q6HP PRN PO 01/15/25 01:45 Nitroglycerin 0.4 mg Q5MINP PRN SL 01/15/25 01:45 Piperacillin Sod/ Tazobactam Sod 100 ml @ 25 mls/hr Q8HR IV 01/15/25 06:00 01/25/25 05:39 25 MLS/HR Pantoprazole Sodium 40 mg BID IV 01/15/25 10:00 01/25/25 10:03 40 MG Amino Acids 0 ml @ 0 mls/hr PER PHARMACY IV 01/16/25 13:15 Sodium Chloride 10 ml QSHIFT@10,22 IV 01/16/25 22:00 01/24/25 22:09 10 ML Hydralazine HCl 10 mg Q6HP PRN IV 01/16/25 20:00 Lorazepam 0.5 mg Q6HP PRN IV 01/17/25 07:45 01/23/25 05:58 0.5 MG Diagnostic Test (Pha) 1 strip Q6HR 01/17/25 18:00 01/25/25 05:39 1 STRIP Insulin Human Regular FOLLOW SLIDING SCALE Q6HR SC 01/17/25 18:00 01/25/25 05:40 8 UNITS Dextrose 50 ml UD IV 01/17/25 18:00 Metoprolol Tartrate 2.5 mg Q6HPRN PRN IV 01/19/25 13:00 Enoxaparin Sodium 110 mg Q12HR SC 01/20/25 22:00 01/23/25 21:36 110 MG Doxycycline Hyclate 100 ml @ 50 mls/hr Q12H IV 01/20/25 14:30 01/25/25 02:44 50 MLS/HR Morphine Sulfate 4 mg Q3HPRN PRN IV 01/20/25 18:30 01/25/25 10:04 4 MG Fat Emulsion Intravenous 100 ml/Sodium Chloride 60 meq/ Sodium Phosphate 10 meq/Potassium Chloride 20 meq/ Magnesium Sulfate 12 meq/ Multivitamins 10 ml/Chromium/ Copper/Manganese/ Zinc 1 ml/Insulin Human Regular 45 units/Amino Acids/ Dextrose 1,441.95 ml @ 60 mls/hr Q24H2M IV 01/24/25 22:00 01/25/25 21:59 01/24/25 22:05 60 MLS/HR Laboratory Results Laboratory Tests 01/24/25 06:45 01/24/25 09:50 Urinalysis Test 01/15/25 01:59 Urine Color Light-yellow (Yellow) Urine Clarity Clear (Clear) Urine pH 6.0 (5.0-9.0) Urine Specific [place] 1.018 (1.001-1.035) Urine Protein Negative (Negative) Urine Ketones Negative (Negative) Urine Blood Negative /uL (Negative) Urine Nitrite Negative (Negative) Urine Bilirubin Negative (Negative) Urine Urobilinogen Normal mg/dL (Negative) Urine Leukocyte Esterase Negative /uL (Negative) Urine RBC <1 /hpf (0 - 3) Urine Microscopic WBC /HPF (0-3) Urine Squamous Epithelial Cells None seen /hpf (<5) Urine Bacteria None seen /hpf (None Seen) Urine Glucose 4+ mg/dL (Normal) H Microbiology Microbiology Date/Time Source Procedure Growth Status 01/15/25 00:28 Blood Blood Culture - Final NO GROWTH AFTER 5 DAYS OF INCUBATION. Complete Labs and/or images reviewed: Labs reviewed by me Assessment/Plan Assessment/Plan Near syncope likely due to below Acute epigastric abdominal pain, intractable Perforated viscus and pneumoperitoneum, with history of gastric bypass Lactic acidosis, resolved Sepsis due to above Acute respiratory distress Diabetes with hyperglycemia AFib on Coumadin Tachypnea Lipase elevated, mild PLAN Continuing Antibiotics doxycycline/Zosyn (prior vanc/zosyn/azithro) Continuing TPN via picc line STOP Solu-Medrol for breathing, Solu-Medrol 40 IV b.i.d. Protonix 40 IV b.i.d. Continuing to keep NPO Surgery consult and follow up appreciated Sliding scale insulin moderate a.c. HS Discussed with RN. The patient is not in severe pain we will not change the pain frequency and increase dose of morphine. We keep the same dose morphine 4 mg IV q.3 hours prn sp surgery. Will hold lovenox for tonight This medical document was created using an electronic medical record system with [employer] system. Although this document has been carefully reviewed, there may still be some phonetic and typographical errors. These areas are purely typographical due to imperfections of the software programs, and do not reflect any compromise in the patient's medical care. Regarding to his nausea I am going to add Phenergan 25 mg IM every 6 hours in between Zofran to see if this help him with the nausea. This medical document was created using an electronic medical record system with [employer] system. Although this document has been carefully reviewed, there may still be some phonetic and typographical errors. These areas are purely typographical due to imperfections of the software programs, and do not reflect any compromise in the patient's medical care. Plan discussed with: Patient My Orders Orders - LAWANDA SEARS MD Procedure Category Date Status Time Ct Guidance For CT 01/25/25 Resulted Needle Placeme Abdomen Without CT 01/25/25 Resulted Contrast 08:12 Us Guidance For US 01/25/25 Resulted Needle Placeme 08:29 Date of Service: January 25, 2025 Billing Provider: LAWANDA SEARS MD Common Visit Codes: [id number] INP/OBS CARE(HIGH) LAWANDA SEARS MD January 25, 2025 11:33
[2025-01-25 12:17] LABS: Alanine Aminotransferase 13 U/L (7-40); Alkaline Phosphatase 79 U/L (46-116); Anion Gap 3 (5-15); Aspartate Aminotransferase 14 U/L (13-40); BUN/Creatinine Ratio 30.4 (10.0-20.0); Blood Urea Nitrogen 21 mg/dL (9-23); Chloride 100 mmol/L (98-107); GFR African American 144 mL/min; GFR Non-African American 119 mL/min; Magnesium 1.9 mg/dL (1.6-2.6); Potassium 3.8 mmol/L (3.5-5.1); Sodium 138 mmol/L (136-145); Triglycerides 87 mg/dL (< 150)
[2025-01-25 12:18] LABS: Albumin 2.9 g/dL (3.2-4.8); Bilirubin, Total < 0.2 mg/dL (0.2-1.0); Calcium 8.6 mg/dL (8.7-10.4); Carbon Dioxide 35 mmol/L (20-31); Glucose 257 mg/dL (74-106); Phosphorus 2.4 mg/dL (2.4-5.1); Total Protein 5.5 g/dL (5.7-8.2)
[2025-01-25] MEDS: DOXYCYCLINE 100MG/100ML 100 ML IV SCH (12:49)
--- NOTE | 2025-01-25 14:26 | DVHPN2 ---
Progress Note Date Seen: January 25, 2025 Medical Necessity Reason Pt with a Central, PICC or Fol: No Objective vital signs Vital Sign Date Time Temp Pulse Resp B/P (MAP) Pulse Ox O2 Delivery O2 Flow Rate FiO2 01/25/25 14:13 66 18 126/66 01/25/25 12:53 97.7 95 97.7 01/25/25 06:40 Nasal Cannula* 3 32 Total Intake and Output 01/24/25 01/24/25 01/25/25 15:00 23:00 07:00 Intake Total 450 ml 100 ml Output Total 800 ml 600 ml Balance -350 ml -500 ml medications Current Medications Medications Dose Ordered Sig/Vincent Route Start Time Stop Time Status Last Admin Dose Admin Warfarin Sodium RX PROTOCOL PER PHARMACY PO 01/15/25 01:45 Cancel Albuterol 2.5 mg Q4HPRN PRN NEB 01/15/25 01:45 01/25/25 06:40 2.5 MG Ipratropium [place] 0.5 mg Q4HPRN PRN NEB 01/15/25 01:45 01/23/25 21:50 0.5 MG Acetaminophen/ Hydrocodone Bitart 1 tab Q4HP PRN PO 01/15/25 01:45 Hold 01/15/25 02:57 1 TAB Ondansetron HCl 4 mg Q4HP PRN IV 01/15/25 01:45 01/25/25 14:09 4 MG Docusate Sodium 100 mg BIDPRN PRN PO 01/15/25 01:45 Acetaminophen 650 mg Q6HP PRN PO 01/15/25 01:45 Nitroglycerin 0.4 mg Q5MINP PRN SL 01/15/25 01:45 Pantoprazole Sodium 40 mg BID IV 01/15/25 10:00 01/25/25 10:03 40 MG Amino Acids 0 ml @ 0 mls/hr PER PHARMACY IV 01/16/25 13:15 Sodium Chloride 10 ml QSHIFT@10,22 IV 01/16/25 22:00 01/25/25 11:33 10 ML Hydralazine HCl 10 mg Q6HP PRN IV 01/16/25 20:00 Lorazepam 0.5 mg Q6HP PRN IV 01/17/25 07:45 01/23/25 05:58 0.5 MG Diagnostic Test (Pha) 1 strip Q6HR 01/17/25 18:00 01/25/25 12:49 1 STRIP Insulin Human Regular FOLLOW SLIDING SCALE Q6HR SC 01/17/25 18:00 01/25/25 13:29 8 UNITS Dextrose 50 ml UD IV 01/17/25 18:00 Metoprolol Tartrate 2.5 mg Q6HPRN PRN IV 01/19/25 13:00 Enoxaparin Sodium 110 mg Q12HR SC 01/20/25 22:00 01/23/25 21:36 110 MG Morphine Sulfate 4 mg Q3HPRN PRN IV 01/20/25 18:30 01/25/25 14:13 4 MG Fat Emulsion Intravenous 100 ml/Sodium Chloride 60 meq/ Sodium Phosphate 10 meq/Potassium Chloride 20 meq/ Magnesium Sulfate 12 meq/ Multivitamins 10 ml/Chromium/ Copper/Manganese/ Zinc 1 ml/Insulin Human Regular 45 units/Amino Acids/ Dextrose 1,441.95 ml @ 60 mls/hr Q24H2M IV 01/24/25 22:00 01/25/25 21:59 01/24/25 22:05 60 MLS/HR Doxycycline Hyclate 100 ml @ 50 mls/hr Q12H IV 01/25/25 13:00 01/25/25 12:49 50 MLS/HR Piperacillin Sod/ Tazobactam Sod 100 ml @ 25 mls/hr Q8H IV 01/25/25 15:00 Fat Emulsion Intravenous 100 ml/Sodium Chloride 50 meq/ Sodium Phosphate 10 meq/Potassium Chloride 20 meq/ Potassium Phosphate 22 meq/ Magnesium Sulfate 16 meq/ Multivitamins 10 ml/Chromium/ Copper/Manganese/ Zinc 1 ml/Insulin Human Regular 47 units/Amino Acids/ Dextrose 1,495.47 ml @ 62 mls/hr Q24H8M IV 01/25/25 22:00 01/26/25 21:59 laboratory and microbiology Laboratory Tests 01/25/25 11:40 01/24/25 09:50 Test 01/25/25 11:40 Range/Units Serum Glucose 257 #H 74-106 mg/dL Problem List/Assessment/Plan Problem List/Assessment/Plan 01/19/25 ASSUMING CARE FROM : PATIENT IS A MORBIDLY OBESE MALE WHO HAD A BARIATRIC OPERATION ( GASTRIC BYPASS?) 10 YEARS AGO WHICH LED TO A 100 LB LOSS. 4 DAYS AGO WAS ADMITTED WITH ABDOMINAL PAIN AND WAS FOUND TO HAVE PNEUMOPERITONEUM, THUS FAR HAS BEEN TREATED CONSERVATIVELY, A GASTROGRAFIN UGI X RAY SHOWS PERSISTENT LEAK FORM UPPER GI TRACT (PROBABLY GASTROENTERIC ANASTOMOSIS. HE REMAINS SYMPTOM FREE (PAIN STOPPED ABOUT 24 HOURS AGO), HE IS AFEBRILE, ABDOMEN IS OBESE, NON DISTENDED, NONTENDER, CONTINUE NON OPERATIVE TREATMENT, WITH NGT TO CONTINUOUS SUCTION, STRICT NPO, IV FLUIDS AND NUTRITION. OBSERVE FOR EVIDENCE OF SEPSIS . REPEAT CHEST/ABDOMEN CT SCAN WITH CONTRAST IN 72 HOURS. . 01/20/25 patient had a panic attack abdomen continues to be non tender, and non distended, patient "feels like is going to have a bowel movement" and thionks he is passing flatus. continue as is, 01/25/25 patient had 230 cc of pus drained by IR yesterday, feels better, abdomen is soft and nontender, patient having BM's. will wait another 48 hours and repeat Gastrografin UGI to see if leak sealed. Plan discussed with: Patient, Other Dietary Evaluation Review Comments: 1. Advance TPN to meet at least 75% estimated needs 2. Contineu current POC Expected Outcomes/Goals: To meet >75% estimated needs Fu 2-3 days JACK MAURICE MD January 25, 2025 14:26
[2025-01-25] MEDS: POTASSIUM PHOSPHATE 22 MEQ in SODIUM CHL 0.9% 100 ML IV ONE (14:30)
[2025-01-25] MEDS: PIPERACILLIN-TAZOB 3.375GM 100 ML IV SCH (16:47)
--- NOTE | 2025-01-25 18:13 | DVHPN2 ---
Progress Note - Dictate Date Seen: January 25, 2025 Medical Necessity Reason Pt with a Central, PICC or Fol: No vital signs Vital Sign Date Time Temp Pulse Resp B/P (MAP) Pulse Ox O2 Delivery O2 Flow Rate FiO2 01/25/25 17:55 98.4 67 18 121/52 (75) 96 98.4 01/25/25 07:30 Nasal Cannula* 3 32 Total Intake and Output 01/24/25 01/24/25 01/25/25 15:00 23:00 07:00 Intake Total 450 ml 100 ml Output Total 800 ml 600 ml Balance -350 ml -500 ml medications Current Medications Medications Dose Ordered Sig/Vincent Route Start Time Stop Time Status Last Admin Dose Admin Warfarin Sodium RX PROTOCOL PER PHARMACY PO 01/15/25 01:45 Cancel Albuterol 2.5 mg Q4HPRN PRN NEB 01/15/25 01:45 01/25/25 06:40 2.5 MG Ipratropium [place] 0.5 mg Q4HPRN PRN NEB 01/15/25 01:45 01/23/25 21:50 0.5 MG Acetaminophen/ Hydrocodone Bitart 1 tab Q4HP PRN PO 01/15/25 01:45 Hold 01/15/25 02:57 1 TAB Ondansetron HCl 4 mg Q4HP PRN IV 01/15/25 01:45 01/25/25 14:09 4 MG Docusate Sodium 100 mg BIDPRN PRN PO 01/15/25 01:45 Acetaminophen 650 mg Q6HP PRN PO 01/15/25 01:45 Nitroglycerin 0.4 mg Q5MINP PRN SL 01/15/25 01:45 Pantoprazole Sodium 40 mg BID IV 01/15/25 10:00 01/25/25 10:03 40 MG Amino Acids 0 ml @ 0 mls/hr PER PHARMACY IV 01/16/25 13:15 Sodium Chloride 10 ml QSHIFT@10,22 IV 01/16/25 22:00 01/25/25 11:33 10 ML Hydralazine HCl 10 mg Q6HP PRN IV 01/16/25 20:00 Lorazepam 0.5 mg Q6HP PRN IV 01/17/25 07:45 01/23/25 05:58 0.5 MG Diagnostic Test (Pha) 1 strip Q6HR 01/17/25 18:00 01/25/25 18:04 1 STRIP Insulin Human Regular FOLLOW SLIDING SCALE Q6HR SC 01/17/25 18:00 01/25/25 18:11 12 UNITS Dextrose 50 ml UD IV 01/17/25 18:00 Metoprolol Tartrate 2.5 mg Q6HPRN PRN IV 01/19/25 13:00 Enoxaparin Sodium 110 mg Q12HR SC 01/20/25 22:00 01/23/25 21:36 110 MG Morphine Sulfate 4 mg Q3HPRN PRN IV 01/20/25 18:30 01/25/25 14:13 4 MG Fat Emulsion Intravenous 100 ml/Sodium Chloride 60 meq/ Sodium Phosphate 10 meq/Potassium Chloride 20 meq/ Magnesium Sulfate 12 meq/ Multivitamins 10 ml/Chromium/ Copper/Manganese/ Zinc 1 ml/Insulin Human Regular 45 units/Amino Acids/ Dextrose 1,441.95 ml @ 60 mls/hr Q24H2M IV 01/24/25 22:00 01/25/25 21:59 01/24/25 22:05 60 MLS/HR Doxycycline Hyclate 100 ml @ 50 mls/hr Q12H IV 01/25/25 13:00 01/25/25 12:49 50 MLS/HR Piperacillin Sod/ Tazobactam Sod 100 ml @ 25 mls/hr Q8H IV 01/25/25 15:00 01/25/25 16:47 25 MLS/HR Fat Emulsion Intravenous 100 ml/Sodium Chloride 50 meq/ Sodium Phosphate 10 meq/Potassium Chloride 20 meq/ Potassium Phosphate 22 meq/ Magnesium Sulfate 16 meq/ Multivitamins 10 ml/Chromium/ Copper/Manganese/ Zinc 1 ml/Insulin Human Regular 47 units/Amino Acids/ Dextrose 1,495.47 ml @ 62 mls/hr Q24H8M IV 01/25/25 22:00 01/26/25 21:59 laboratory and microbiology Laboratory Tests 01/25/25 11:40 01/24/25 09:50 Test 01/25/25 11:40 Range/Units Serum Glucose 257 #H 74-106 mg/dL Assessment/Plan Impression Acute hypoxemic respiratory failure Morbid obesity COPD- stable SBO Patient seen and examined Events Low oxygen requirements On 2 liters nasal cannula NG tube in place S/p intraabdominal abscess drainage with Dr. [place] Remains NPO post op Labs and imaging reviewed Management Supplemental oxygen Titrate to maintain sats 90% or above Incentive spirometry Continue antibiotics F/u cultures Bronchodilators Monitor renal function Monitor electrolytes Supplement as needed Pain control Avoid oversedation F/u general surgery DVT prophylaxis Dietary Evaluation Review Comments: 1. Advance TPN to meet at least 75% estimated needs 2. Contineu current POC Expected Outcomes/Goals: To meet >75% estimated needs Fu 2-3 days Plan discussed with: Patient MIK COLLAZO MD January 25, 2025 18:13
[2025-01-25] MEDS: TPN PER PHARMACY IV NR (21:43)
[2025-01-26] VITALS (15 sets, daily range): BP systolic 111–129; BP diastolic 45–61; PULSE 62–77; RESP 17–22; TEMP 97.5–98.4; O2SAT 92–99
[2025-01-26 08:01] LABS: Alanine Aminotransferase 13 U/L (7-40); Alkaline Phosphatase 79 U/L (46-116); Anion Gap 5 (5-15); BUN/Creatinine Ratio 27.9 (10.0-20.0); Blood Urea Nitrogen 19 mg/dL (9-23); Calcium 8.8 mg/dL (8.7-10.4); Chloride 100 mmol/L (98-107); Magnesium 2.1 mg/dL (1.6-2.6); Phosphorus 2.4 mg/dL (2.4-5.1); Sodium 138 mmol/L (136-145); Total Protein 5.7 g/dL (5.7-8.2)
[2025-01-26 08:03] LABS: Albumin 2.9 g/dL (3.2-4.8); Aspartate Aminotransferase 11 U/L (13-40); Bilirubin, Total < 0.2 mg/dL (0.2-1.0); Carbon Dioxide 33 mmol/L (20-31); Glucose 271 mg/dL (74-106); Potassium 3.1 mmol/L (3.5-5.1)
--- NOTE | 2025-01-26 10:56 | DVHPN2 ---
Progress Note Date Seen: January 26, 2025 Medical Necessity Reason Pt with a Central, PICC or Fol: No Objective vital signs Vital Sign Date Time Temp Pulse Resp B/P (MAP) Pulse Ox O2 Delivery O2 Flow Rate FiO2 01/26/25 09:48 72 18 117/46 01/26/25 09:30 97.9 92 97.9 01/26/25 08:30 Nasal Cannula* 4 36 Total Intake and Output 01/25/25 01/25/25 01/26/25 15:00 23:00 07:00 Intake Total 200 ml 200 ml Output Total 450 ml 550 ml Balance -250 ml -350 ml medications Current Medications Medications Dose Ordered Sig/Vincent Route Start Time Stop Time Status Last Admin Dose Admin Warfarin Sodium RX PROTOCOL PER PHARMACY PO 01/15/25 01:45 Cancel Albuterol 2.5 mg Q4HPRN PRN NEB 01/15/25 01:45 01/26/25 04:26 2.5 MG Ipratropium [place] 0.5 mg Q4HPRN PRN NEB 01/15/25 01:45 01/23/25 21:50 0.5 MG Acetaminophen/ Hydrocodone Bitart 1 tab Q4HP PRN PO 01/15/25 01:45 Hold 01/15/25 02:57 1 TAB Ondansetron HCl 4 mg Q4HP PRN IV 01/15/25 01:45 01/26/25 09:46 4 MG Docusate Sodium 100 mg BIDPRN PRN PO 01/15/25 01:45 Acetaminophen 650 mg Q6HP PRN PO 01/15/25 01:45 Nitroglycerin 0.4 mg Q5MINP PRN SL 01/15/25 01:45 Pantoprazole Sodium 40 mg BID IV 01/15/25 10:00 01/26/25 09:44 40 MG Amino Acids 0 ml @ 0 mls/hr PER PHARMACY IV 01/16/25 13:15 Sodium Chloride 10 ml QSHIFT@10,22 IV 01/16/25 22:00 01/26/25 09:45 10 ML Hydralazine HCl 10 mg Q6HP PRN IV 01/16/25 20:00 Lorazepam 0.5 mg Q6HP PRN IV 01/17/25 07:45 01/23/25 05:58 0.5 MG Diagnostic Test (Pha) 1 strip Q6HR 01/17/25 18:00 01/26/25 05:45 1 STRIP Insulin Human Regular FOLLOW SLIDING SCALE Q6HR SC 01/17/25 18:00 01/26/25 05:47 12 UNITS Dextrose 50 ml UD IV 01/17/25 18:00 Metoprolol Tartrate 2.5 mg Q6HPRN PRN IV 01/19/25 13:00 Enoxaparin Sodium 110 mg Q12HR SC 01/20/25 22:00 01/26/25 09:45 110 MG Morphine Sulfate 4 mg Q3HPRN PRN IV 01/20/25 18:30 01/26/25 09:48 4 MG Doxycycline Hyclate 100 ml @ 50 mls/hr Q12H IV 01/25/25 13:00 01/26/25 02:10 50 MLS/HR Piperacillin Sod/ Tazobactam Sod 100 ml @ 25 mls/hr Q8H IV 01/25/25 15:00 01/26/25 06:37 25 MLS/HR Fat Emulsion Intravenous 100 ml/Sodium Chloride 50 meq/ Sodium Phosphate 10 meq/Potassium Chloride 20 meq/ Potassium Phosphate 22 meq/ Magnesium Sulfate 16 meq/ Multivitamins 10 ml/Chromium/ Copper/Manganese/ Zinc 1 ml/Insulin Human Regular 47 units/Amino Acids/ Dextrose 1,495.47 ml @ 62 mls/hr Q24H8M IV 01/25/25 22:00 01/26/25 21:59 01/25/25 21:43 62 MLS/HR laboratory and microbiology Laboratory Tests 01/26/25 06:51 01/24/25 09:50 Test 01/26/25 06:51 Range/Units Serum Glucose 271 H 74-106 mg/dL Problem List/Assessment/Plan Problem List/Assessment/Plan 01/19/25 ASSUMING CARE FROM : PATIENT IS A MORBIDLY OBESE MALE WHO HAD A BARIATRIC OPERATION ( GASTRIC BYPASS?) 10 YEARS AGO WHICH LED TO A 100 LB LOSS. 4 DAYS AGO WAS ADMITTED WITH ABDOMINAL PAIN AND WAS FOUND TO HAVE PNEUMOPERITONEUM, THUS FAR HAS BEEN TREATED CONSERVATIVELY, A GASTROGRAFIN UGI X RAY SHOWS PERSISTENT LEAK FORM UPPER GI TRACT (PROBABLY GASTROENTERIC ANASTOMOSIS. HE REMAINS SYMPTOM FREE (PAIN STOPPED ABOUT 24 HOURS AGO), HE IS AFEBRILE, ABDOMEN IS OBESE, NON DISTENDED, NONTENDER, CONTINUE NON OPERATIVE TREATMENT, WITH NGT TO CONTINUOUS SUCTION, STRICT NPO, IV FLUIDS AND NUTRITION. OBSERVE FOR EVIDENCE OF SEPSIS . REPEAT CHEST/ABDOMEN CT SCAN WITH CONTRAST IN 72 HOURS. . 01/20/25 patient had a panic attack abdomen continues to be non tender, and non distended, patient "feels like is going to have a bowel movement" and thionks he is passing flatus. continue as is, 01/25/25 patient had 230 cc of pus drained by IR yesterday, feels better, abdomen is soft and nontender, patient having BM's. will wait another 48 hours and repeat Gastrografin UGI to see if leak sealed. 01/26/25 FEELS BETTER BUT HAS NOT BEEN AMBULATING. ABDOMEN NON TENDER. Plan discussed with: Patient Dietary Evaluation Review Comments: 1. Advance TPN to meet at least 75% estimated needs 2. Contineu current POC Expected Outcomes/Goals: To meet >75% estimated needs Fu 2-3 days JACK MAURICE MD January 26, 2025 10:56
--- NOTE | 2025-01-26 12:11 | DVHPN2 ---
Subjective The patient is seen and examined at bedside. No complaint today Reviewed: Care Plan, H&P, Labs, Medications, Previous Orders, Radiology Changes from previous H/P or p: No Changes General: Per HPI Objective Vitals Vital Signs Date Time Temp Pulse Resp B/P (MAP) Pulse Ox O2 Delivery O2 Flow Rate FiO2 01/26/25 11:27 73 19 99 01/26/25 11:21 Nasal Cannula 4.0 01/26/25 11:21 36 01/26/25 09:48 117/46 01/26/25 09:30 97.9 97.9 Intake/Output Intake and Output 01/26/25 07:00 Intake Total 400 ml Output Total 1000 ml Balance -600 ml Intake Oral 0 ml IV Total 400 ml Output Urine Total 1000 ml # Bowel Movements 2 General Appearance: Alert, Oriented X3, No acute distress HEENT: Atraumatic, PERRLA, EOMI, Mucous membr. moist/pink Neck: Supple Lungs: Clear to auscultation, Normal air movement Cardiovascular: Regular rate, Normal S1, Normal S2, No murmurs, Gallops, Rubs Abdomen: Normal bowel sounds, Soft, No tenderness Neuro: Cranial nerves 3-12 NL Psych/Mental Status: Mental status NL Medications Current Medications Medications Dose Ordered Sig/Vincent Route Start Time Stop Time Status Last Admin Dose Admin Warfarin Sodium RX PROTOCOL PER PHARMACY PO 01/15/25 01:45 Cancel Albuterol 2.5 mg Q4HPRN PRN NEB 01/15/25 01:45 01/26/25 11:21 2.5 MG Ipratropium [place] 0.5 mg Q4HPRN PRN NEB 01/15/25 01:45 01/26/25 11:20 0.5 MG Acetaminophen/ Hydrocodone Bitart 1 tab Q4HP PRN PO 01/15/25 01:45 Hold 01/15/25 02:57 1 TAB Ondansetron HCl 4 mg Q4HP PRN IV 01/15/25 01:45 01/26/25 09:46 4 MG Docusate Sodium 100 mg BIDPRN PRN PO 01/15/25 01:45 Acetaminophen 650 mg Q6HP PRN PO 01/15/25 01:45 Nitroglycerin 0.4 mg Q5MINP PRN SL 01/15/25 01:45 Pantoprazole Sodium 40 mg BID IV 01/15/25 10:00 01/26/25 09:44 40 MG Amino Acids 0 ml @ 0 mls/hr PER PHARMACY IV 01/16/25 13:15 Sodium Chloride 10 ml QSHIFT@10,22 IV 01/16/25 22:00 01/26/25 09:45 10 ML Hydralazine HCl 10 mg Q6HP PRN IV 01/16/25 20:00 Lorazepam 0.5 mg Q6HP PRN IV 01/17/25 07:45 01/23/25 05:58 0.5 MG Diagnostic Test (Pha) 1 strip Q6HR 01/17/25 18:00 01/26/25 05:45 1 STRIP Insulin Human Regular FOLLOW SLIDING SCALE Q6HR SC 01/17/25 18:00 01/26/25 05:47 12 UNITS Dextrose 50 ml UD IV 01/17/25 18:00 Metoprolol Tartrate 2.5 mg Q6HPRN PRN IV 01/19/25 13:00 Enoxaparin Sodium 110 mg Q12HR SC 01/20/25 22:00 01/26/25 09:45 110 MG Morphine Sulfate 4 mg Q3HPRN PRN IV 01/20/25 18:30 01/26/25 09:48 4 MG Doxycycline Hyclate 100 ml @ 50 mls/hr Q12H IV 01/25/25 13:00 01/26/25 02:10 50 MLS/HR Piperacillin Sod/ Tazobactam Sod 100 ml @ 25 mls/hr Q8H IV 01/25/25 15:00 01/26/25 06:37 25 MLS/HR Fat Emulsion Intravenous 100 ml/Sodium Chloride 50 meq/ Sodium Phosphate 10 meq/Potassium Chloride 20 meq/ Potassium Phosphate 22 meq/ Magnesium Sulfate 16 meq/ Multivitamins 10 ml/Chromium/ Copper/Manganese/ Zinc 1 ml/Insulin Human Regular 47 units/Amino Acids/ Dextrose 1,495.47 ml @ 62 mls/hr Q24H8M IV 01/25/25 22:00 01/26/25 21:59 01/25/25 21:43 62 MLS/HR Fat Emulsion Intravenous 100 ml/Sodium Chloride 50 meq/ Sodium Phosphate 10 meq/Potassium Chloride 20 meq/ Potassium Phosphate 33 meq/ Magnesium Sulfate 18 meq/ Multivitamins 10 ml/Chromium/ Copper/Manganese/ Zinc 1 ml/Insulin Human Regular 47 units/Amino Acids/ Dextrose 1,448.47 ml @ 60 mls/hr Q24H9M IV 01/26/25 22:00 01/27/25 21:59 Laboratory Results Laboratory Tests 01/24/25 09:50 01/26/25 06:51 Chemistry Test 01/26/25 06:51 Albumin 2.9 g/dL (3.2-4.8) L Calcium Level 8.8 mg/dL (8.7-10.4) Magnesium Level 2.1 mg/dL (1.6-2.6) Phosphorus Level 2.4 mg/dL (2.4-5.1) Total Protein 5.7 g/dL (5.7-8.2) LFT Test 01/26/25 06:51 Alanine Aminotransferase (ALT) 13 U/L (7-40) Alkaline Phosphatase 79 U/L (46-116) Aspartate Amino Transferase (AST) 11 U/L (13-40) L Total Bilirubin < 0.2 mg/dL (0.2-1.0) L Urinalysis Test 01/15/25 01:59 Urine Color Light-yellow (Yellow) Urine Clarity Clear (Clear) Urine pH 6.0 (5.0-9.0) Urine Specific [place] 1.018 (1.001-1.035) Urine Protein Negative (Negative) Urine Ketones Negative (Negative) Urine Blood Negative /uL (Negative) Urine Nitrite Negative (Negative) Urine Bilirubin Negative (Negative) Urine Urobilinogen Normal mg/dL (Negative) Urine Leukocyte Esterase Negative /uL (Negative) Urine RBC <1 /hpf (0 - 3) Urine Microscopic WBC /HPF (0-3) Urine Squamous Epithelial Cells None seen /hpf (<5) Urine Bacteria None seen /hpf (None Seen) Urine Glucose 4+ mg/dL (Normal) H Microbiology Microbiology Date/Time Source Procedure Growth Status 01/25/25 09:35 Aspirate Gram Stain Pending Resulted 01/25/25 09:35 Aspirate Body Fluid Culture - Preliminary Resulted 01/15/25 00:28 Blood Blood Culture - Final NO GROWTH AFTER 5 DAYS OF INCUBATION. Complete Labs and/or images reviewed: Labs reviewed by me Assessment/Plan Assessment/Plan Near syncope likely due to below Acute epigastric abdominal pain, intractable Perforated viscus and pneumoperitoneum, with history of gastric bypass Lactic acidosis, resolved Sepsis due to above Acute respiratory distress Diabetes with hyperglycemia AFib on Coumadin Tachypnea Lipase elevated, mild PLAN Continuing Antibiotics doxycycline/Zosyn (prior vanc/zosyn/azithro) Continuing TPN via picc line STOP Solu-Medrol for breathing, Solu-Medrol 40 IV b.i.d. Protonix 40 IV b.i.d. Continuing to keep NPO Surgery consult and follow up appreciated Sliding scale insulin moderate a.c. HS Discussed with RN. The patient is not in severe pain we will not change the pain frequency and increase dose of morphine. We keep the same dose morphine 4 mg IV q.3 hours prn Per surgeon, will have Gastrografin next couple days. Continue TPN DW patient in length regarding to plan of care. This medical document was created using an electronic medical record system with [employer] dictation system. Although this document has been carefully reviewed, there may still be some phonetic and typographical errors. These areas are purely typographical due to imperfections of the software programs, and do not reflect any compromise in the patient's medical care. Regarding to his nausea I am going to add Phenergan 25 mg IM every 6 hours in between Zofran to see if this help him with the nausea. This medical document was created using an electronic medical record system with [employer] dictation system. Although this document has been carefully reviewed, there may still be some phonetic and typographical errors. These areas are purely typographical due to imperfections of the software programs, and do not reflect any compromise in the patient's medical care. Plan discussed with: Patient, Son Date of Service: January 26, 2025 Billing Provider: LAWANDA SEARS MD Common Visit Codes: [id number] INP/OBS CARE(HIGH) LAWANDA SEARS MD January 26, 2025 12:11
--- NOTE | 2025-01-26 12:48 | DVHPN2 ---
Progress Note - Dictate Date Seen: January 26, 2025 Medical Necessity Reason Pt with a Central, PICC or Fol: No vital signs Vital Sign Date Time Temp Pulse Resp B/P (MAP) Pulse Ox O2 Delivery O2 Flow Rate FiO2 01/26/25 11:27 73 19 99 01/26/25 11:21 Nasal Cannula 4.0 01/26/25 11:21 36 01/26/25 10:18 112/53 01/26/25 09:30 97.9 97.9 Total Intake and Output 01/25/25 01/25/25 01/26/25 15:00 23:00 07:00 Intake Total 200 ml 200 ml Output Total 450 ml 550 ml Balance -250 ml -350 ml medications Current Medications Medications Dose Ordered Sig/Vincent Route Start Time Stop Time Status Last Admin Dose Admin Warfarin Sodium RX PROTOCOL PER PHARMACY PO 01/15/25 01:45 Cancel Albuterol 2.5 mg Q4HPRN PRN NEB 01/15/25 01:45 01/26/25 11:21 2.5 MG Ipratropium [place] 0.5 mg Q4HPRN PRN NEB 01/15/25 01:45 01/26/25 11:20 0.5 MG Acetaminophen/ Hydrocodone Bitart 1 tab Q4HP PRN PO 01/15/25 01:45 Hold 01/15/25 02:57 1 TAB Ondansetron HCl 4 mg Q4HP PRN IV 01/15/25 01:45 01/26/25 09:46 4 MG Docusate Sodium 100 mg BIDPRN PRN PO 01/15/25 01:45 Acetaminophen 650 mg Q6HP PRN PO 01/15/25 01:45 Nitroglycerin 0.4 mg Q5MINP PRN SL 01/15/25 01:45 Pantoprazole Sodium 40 mg BID IV 01/15/25 10:00 01/26/25 09:44 40 MG Amino Acids 0 ml @ 0 mls/hr PER PHARMACY IV 01/16/25 13:15 Sodium Chloride 10 ml QSHIFT@10,22 IV 01/16/25 22:00 01/26/25 09:45 10 ML Hydralazine HCl 10 mg Q6HP PRN IV 01/16/25 20:00 Lorazepam 0.5 mg Q6HP PRN IV 01/17/25 07:45 01/23/25 05:58 0.5 MG Diagnostic Test (Pha) 1 strip Q6HR 01/17/25 18:00 01/26/25 12:00 1 STRIP Insulin Human Regular FOLLOW SLIDING SCALE Q6HR SC 01/17/25 18:00 01/26/25 12:00 8 UNITS Dextrose 50 ml UD IV 01/17/25 18:00 Metoprolol Tartrate 2.5 mg Q6HPRN PRN IV 01/19/25 13:00 Enoxaparin Sodium 110 mg Q12HR SC 01/20/25 22:00 01/26/25 09:45 110 MG Morphine Sulfate 4 mg Q3HPRN PRN IV 01/20/25 18:30 01/26/25 09:48 4 MG Doxycycline Hyclate 100 ml @ 50 mls/hr Q12H IV 01/25/25 13:00 01/26/25 02:10 50 MLS/HR Piperacillin Sod/ Tazobactam Sod 100 ml @ 25 mls/hr Q8H IV 01/25/25 15:00 01/26/25 06:37 25 MLS/HR Fat Emulsion Intravenous 100 ml/Sodium Chloride 50 meq/ Sodium Phosphate 10 meq/Potassium Chloride 20 meq/ Potassium Phosphate 22 meq/ Magnesium Sulfate 16 meq/ Multivitamins 10 ml/Chromium/ Copper/Manganese/ Zinc 1 ml/Insulin Human Regular 47 units/Amino Acids/ Dextrose 1,495.47 ml @ 62 mls/hr Q24H8M IV 01/25/25 22:00 01/26/25 21:59 01/25/25 21:43 62 MLS/HR Fat Emulsion Intravenous 100 ml/Sodium Chloride 50 meq/ Sodium Phosphate 10 meq/Potassium Chloride 20 meq/ Potassium Phosphate 33 meq/ Magnesium Sulfate 18 meq/ Multivitamins 10 ml/Chromium/ Copper/Manganese/ Zinc 1 ml/Insulin Human Regular 47 units/Amino Acids/ Dextrose 1,448.47 ml @ 60 mls/hr Q24H9M IV 01/26/25 22:00 01/27/25 21:59 laboratory and microbiology Laboratory Tests 01/26/25 06:51 01/24/25 09:50 Test 01/26/25 06:51 Range/Units Serum Glucose 271 H 74-106 mg/dL Assessment/Plan Impression Acute hypoxemic respiratory failure Morbid obesity COPD- stable SBO Patient seen and examined Events Low oxygen requirements On 2 liters nasal cannula NG tube in place S/p intraabdominal abscess drainage with Dr. [place] Remains NPO post op Labs and imaging reviewed Management Supplemental oxygen Titrate to maintain sats 90% or above Incentive spirometry Continue antibiotics F/u cultures Bronchodilators Monitor renal function Monitor electrolytes Supplement as needed Pain control Avoid oversedation F/u general surgery DVT prophylaxis Dietary Evaluation Review Comments: 1. Advance TPN to meet at least 75% estimated needs 2. Contineu current POC Expected Outcomes/Goals: To meet >75% estimated needs Fu 2-3 days Plan discussed with: Other (rn) MIK COLLAZO MD January 26, 2025 12:48
--- NOTE | 2025-01-26 16:11 | MEDREC ---
[facility] Intervention Section I [facility] Intervention: Review courses of therapy (Patient was recent discharged within 30 days at [facility]. Patient WBC remained elevated while being on Zosyn (01/15- current) + Doxycycline (01/20-current). The preliminary Body Fluid Culture showed YEAST. Please consider adding an antifungal if clinically appropriate) JOHN CHU January 26, 2025 16:11
[2025-01-26] MEDS ORDERED: POTASSIUM CHL 20MEQ/100ML 100 ML IV SCH (17:30)
[2025-01-26] MEDS: POTASSIUM PHOSPHATE 22 MEQ in SODIUM CHL 0.9% 100 ML IV ONE (19:45)
[2025-01-26] MEDS ORDERED: POTASSIUM PHOSPHATE 22 MEQ in SODIUM CHL 0.9% 100 ML IV ONE (21:30)
[2025-01-26] MEDS: POTASSIUM CHL 20MEQ/100ML 100 ML IV ONE (21:43)
[2025-01-26] MEDS: TPN PER PHARMACY IV NR (22:00)
[2025-01-27] VITALS (15 sets, daily range): BP systolic 101–119; BP diastolic 40–70; PULSE 59–67; RESP 17–20; TEMP 97.2–97.9; O2SAT 95–100
[2025-01-27 11:05] LABS: Alanine Aminotransferase 16 U/L (7-40); Alkaline Phosphatase 70 U/L (46-116); Anion Gap 1 (5-15); Aspartate Aminotransferase 14 U/L (13-40); Blood Urea Nitrogen 20 mg/dL (9-23); Chloride 101 mmol/L (98-107); Magnesium 2.2 mg/dL (1.6-2.6); Sodium 136 mmol/L (136-145); Total Protein 5.9 g/dL (5.7-8.2)
[2025-01-27 11:06] LABS: Albumin 2.9 g/dL (3.2-4.8); Calcium 8.7 mg/dL (8.7-10.4); Carbon Dioxide 34 mmol/L (20-31); Glucose 235 mg/dL (74-106); Phosphorus 3.5 mg/dL (2.4-5.1); Potassium 3.5 mmol/L (3.5-5.1)
[2025-01-27 11:07] LABS: Bilirubin, Total < 0.2 mg/dL (0.2-1.0)
--- NOTE | 2025-01-27 12:13 | DVHPN2 ---
Subjective The patient is seen and examined at bedside. No complaint today Reviewed: Care Plan, H&P, Labs, Medications, Previous Orders, Radiology Changes from previous H/P or p: No Changes General: Per HPI Objective Vitals Vital Signs Date Time Temp Pulse Resp B/P (MAP) Pulse Ox O2 Delivery O2 Flow Rate FiO2 01/27/25 09:30 97.2 61 18 110/56 (74) 97 97.2 01/27/25 08:00 Nasal Cannula* 4 36 Intake/Output Intake and Output 01/27/25 07:00 Intake Total 300 ml Output Total 2250 ml Balance -1950 ml Intake Oral 0 ml IV Total 300 ml Output Urine Total 1550 ml Gastric Drainage Total 700 ml # Bowel Movements 2 General Appearance: Alert, Oriented X3, No acute distress HEENT: Atraumatic, PERRLA, EOMI, Mucous membr. moist/pink Neck: Supple Lungs: Clear to auscultation, Normal air movement Cardiovascular: Regular rate, Normal S1, Normal S2, No murmurs, Gallops, Rubs Abdomen: Normal bowel sounds, Soft, No tenderness Neuro: Cranial nerves 3-12 NL Psych/Mental Status: Mental status NL Medications Current Medications Medications Dose Ordered Sig/Vincent Route Start Time Stop Time Status Last Admin Dose Admin Warfarin Sodium RX PROTOCOL PER PHARMACY PO 01/15/25 01:45 Cancel Albuterol 2.5 mg Q4HPRN PRN NEB 01/15/25 01:45 01/27/25 02:55 2.5 MG Ipratropium [place] 0.5 mg Q4HPRN PRN NEB 01/15/25 01:45 01/27/25 02:55 0.5 MG Acetaminophen/ Hydrocodone Bitart 1 tab Q4HP PRN PO 01/15/25 01:45 Hold 01/15/25 02:57 1 TAB Ondansetron HCl 4 mg Q4HP PRN IV 01/15/25 01:45 01/27/25 09:51 4 MG Docusate Sodium 100 mg BIDPRN PRN PO 01/15/25 01:45 Acetaminophen 650 mg Q6HP PRN PO 01/15/25 01:45 Nitroglycerin 0.4 mg Q5MINP PRN SL 01/15/25 01:45 Pantoprazole Sodium 40 mg BID IV 01/15/25 10:00 01/27/25 09:50 40 MG Amino Acids 0 ml @ 0 mls/hr PER PHARMACY IV 01/16/25 13:15 Sodium Chloride 10 ml QSHIFT@10,22 IV 01/16/25 22:00 01/27/25 10:00 10 ML Hydralazine HCl 10 mg Q6HP PRN IV 01/16/25 20:00 Lorazepam 0.5 mg Q6HP PRN IV 01/17/25 07:45 01/23/25 05:58 0.5 MG Diagnostic Test (Pha) 1 strip Q6HR 01/17/25 18:00 01/27/25 11:52 1 STRIP Insulin Human Regular FOLLOW SLIDING SCALE Q6HR SC 01/17/25 18:00 01/27/25 05:39 8 UNITS Dextrose 50 ml UD IV 01/17/25 18:00 Metoprolol Tartrate 2.5 mg Q6HPRN PRN IV 01/19/25 13:00 Enoxaparin Sodium 110 mg Q12HR SC 01/20/25 22:00 01/27/25 09:51 110 MG Morphine Sulfate 4 mg Q3HPRN PRN IV 01/20/25 18:30 01/27/25 08:00 4 MG Doxycycline Hyclate 100 ml @ 50 mls/hr Q12H IV 01/25/25 13:00 01/27/25 01:12 50 MLS/HR Piperacillin Sod/ Tazobactam Sod 100 ml @ 25 mls/hr Q8H IV 01/25/25 15:00 01/27/25 09:52 25 MLS/HR Fat Emulsion Intravenous 100 ml/Sodium Chloride 50 meq/ Sodium Phosphate 10 meq/Potassium Chloride 20 meq/ Potassium Phosphate 33 meq/ Magnesium Sulfate 18 meq/ Multivitamins 10 ml/Chromium/ Copper/Manganese/ Zinc 1 ml/Insulin Human Regular 47 units/Amino Acids/ Dextrose 1,448.47 ml @ 60 mls/hr Q24H9M IV 01/26/25 22:00 01/27/25 21:59 01/26/25 22:00 60 MLS/HR Potassium Chloride 100 ml @ 50 mls/hr Q2H IV 01/26/25 17:30 01/26/25 21:29 UNV Laboratory Results Laboratory Tests 01/24/25 09:50 01/27/25 10:30 Chemistry Test 01/27/25 10:30 Albumin 2.9 g/dL (3.2-4.8) L Calcium Level 8.7 mg/dL (8.7-10.4) Magnesium Level 2.2 mg/dL (1.6-2.6) Phosphorus Level 3.5 mg/dL (2.4-5.1) Total Protein 5.9 g/dL (5.7-8.2) LFT Test 01/27/25 10:30 Alanine Aminotransferase (ALT) 16 U/L (7-40) Alkaline Phosphatase 70 U/L (46-116) Aspartate Amino Transferase (AST) 14 U/L (13-40) Total Bilirubin < 0.2 mg/dL (0.2-1.0) L Urinalysis Test 01/15/25 01:59 Urine Color Light-yellow (Yellow) Urine Clarity Clear (Clear) Urine pH 6.0 (5.0-9.0) Urine Specific [place] 1.018 (1.001-1.035) Urine Protein Negative (Negative) Urine Ketones Negative (Negative) Urine Blood Negative /uL (Negative) Urine Nitrite Negative (Negative) Urine Bilirubin Negative (Negative) Urine Urobilinogen Normal mg/dL (Negative) Urine Leukocyte Esterase Negative /uL (Negative) Urine RBC <1 /hpf (0 - 3) Urine Microscopic WBC /HPF (0-3) Urine Squamous Epithelial Cells None seen /hpf (<5) Urine Bacteria None seen /hpf (None Seen) Urine Glucose 4+ mg/dL (Normal) H Microbiology Microbiology Date/Time Source Procedure Growth Status 01/25/25 09:35 Aspirate Gram Stain - Final Resulted 01/25/25 09:35 Aspirate Body Fluid Culture - Preliminary Resulted 01/15/25 00:28 Blood Blood Culture - Final NO GROWTH AFTER 5 DAYS OF INCUBATION. Complete Assessment/Plan Assessment/Plan Near syncope likely due to below Acute epigastric abdominal pain, intractable Perforated viscus and pneumoperitoneum, with history of gastric bypass Lactic acidosis, resolved Sepsis due to above Acute respiratory distress Diabetes with hyperglycemia AFib on Coumadin Tachypnea Lipase elevated, mild PLAN Continuing Antibiotics doxycycline/Zosyn (prior vanc/zosyn/azithro) Continuing TPN via picc line STOP Solu-Medrol for breathing, Solu-Medrol 40 IV b.i.d. Protonix 40 IV b.i.d. Continuing to keep NPO Surgery consult and follow up appreciated Sliding scale insulin moderate a.c. HS Discussed with RN. The patient is not in severe pain we will not change the pain frequency and increase dose of morphine. We keep the same dose morphine 4 mg IV q.3 hours prn Per surgeon, will have Gastrografin next couple days. Continue TPN DW patient in length regarding to plan of care. This medical document was created using an electronic medical record system with [employer] dictation system. Although this document has been carefully reviewed, there may still be some phonetic and typographical errors. These areas are purely typographical due to imperfections of the software programs, and do not reflect any compromise in the patient's medical care. Regarding to his nausea I am going to add Phenergan 25 mg IM every 6 hours in between Zofran to see if this help him with the nausea. This medical document was created using an electronic medical record system with [employer] dictation system. Although this document has been carefully reviewed, there may still be some phonetic and typographical errors. These areas are purely typographical due to imperfections of the software programs, and do not reflect any compromise in the patient's medical care. Plan discussed with: Patient, Son Date of Service: January 27, 2025 Billing Provider: LAWANDA SEARS MD Common Visit Codes: [id number] INP/OBS CARE(HIGH) LAWANDA SEARS MD January 27, 2025 12:13
--- NOTE | 2025-01-27 12:45 | DVHPN2 ---
Progress Note - Dictate Date Seen: January 27, 2025 Medical Necessity Reason Pt with a Central, PICC or Fol: No Subjective E: no major events o/n. no complaints. vital signs Vital Sign Date Time Temp Pulse Resp B/P (MAP) Pulse Ox O2 Delivery O2 Flow Rate FiO2 01/27/25 12:31 63 16 114/44 01/27/25 09:30 97.2 97 97.2 01/27/25 08:00 Nasal Cannula* 4 36 Total Intake and Output 01/26/25 01/26/25 01/27/25 15:00 23:00 07:00 Intake Total 100 ml 200 ml Output Total 1600 ml 650 ml Balance -1500 ml -450 ml medications Current Medications Medications Dose Ordered Sig/Vincent Route Start Time Stop Time Status Last Admin Dose Admin Warfarin Sodium RX PROTOCOL PER PHARMACY PO 01/15/25 01:45 Cancel Albuterol 2.5 mg Q4HPRN PRN NEB 01/15/25 01:45 01/27/25 02:55 2.5 MG Ipratropium [place] 0.5 mg Q4HPRN PRN NEB 01/15/25 01:45 01/27/25 02:55 0.5 MG Acetaminophen/ Hydrocodone Bitart 1 tab Q4HP PRN PO 01/15/25 01:45 Hold 01/15/25 02:57 1 TAB Ondansetron HCl 4 mg Q4HP PRN IV 01/15/25 01:45 01/27/25 09:51 4 MG Docusate Sodium 100 mg BIDPRN PRN PO 01/15/25 01:45 Acetaminophen 650 mg Q6HP PRN PO 01/15/25 01:45 Nitroglycerin 0.4 mg Q5MINP PRN SL 01/15/25 01:45 Pantoprazole Sodium 40 mg BID IV 01/15/25 10:00 01/27/25 09:50 40 MG Amino Acids 0 ml @ 0 mls/hr PER PHARMACY IV 01/16/25 13:15 Sodium Chloride 10 ml QSHIFT@10,22 IV 01/16/25 22:00 01/27/25 10:00 10 ML Hydralazine HCl 10 mg Q6HP PRN IV 01/16/25 20:00 Lorazepam 0.5 mg Q6HP PRN IV 01/17/25 07:45 01/23/25 05:58 0.5 MG Diagnostic Test (Pha) 1 strip Q6HR 01/17/25 18:00 01/27/25 11:52 1 STRIP Insulin Human Regular FOLLOW SLIDING SCALE Q6HR SC 01/17/25 18:00 01/27/25 12:17 8 UNITS Dextrose 50 ml UD IV 01/17/25 18:00 Metoprolol Tartrate 2.5 mg Q6HPRN PRN IV 01/19/25 13:00 Enoxaparin Sodium 110 mg Q12HR SC 01/20/25 22:00 01/27/25 09:51 110 MG Doxycycline Hyclate 100 ml @ 50 mls/hr Q12H IV 01/25/25 13:00 01/27/25 12:36 50 MLS/HR Piperacillin Sod/ Tazobactam Sod 100 ml @ 25 mls/hr Q8H IV 01/25/25 15:00 01/27/25 09:52 25 MLS/HR Fat Emulsion Intravenous 100 ml/Sodium Chloride 50 meq/ Sodium Phosphate 10 meq/Potassium Chloride 20 meq/ Potassium Phosphate 33 meq/ Magnesium Sulfate 18 meq/ Multivitamins 10 ml/Chromium/ Copper/Manganese/ Zinc 1 ml/Insulin Human Regular 47 units/Amino Acids/ Dextrose 1,448.47 ml @ 60 mls/hr Q24H9M IV 01/26/25 22:00 01/27/25 21:59 01/26/25 22:00 60 MLS/HR Potassium Chloride 100 ml @ 50 mls/hr Q2H IV 01/26/25 17:30 01/26/25 21:29 UNV Fat Emulsion Intravenous 125 ml/Sodium Chloride 60 meq/ Sodium Phosphate 10 meq/Potassium Chloride 30 meq/ Magnesium Sulfate 14 meq/ Multivitamins 10 ml/Chromium/ Copper/Manganese/ Zinc 1 ml/Insulin Human Regular 47 units/Amino Acids/ Dextrose 1,472.47 ml @ 61 mls/hr Q24H9M IV 01/27/25 22:00 01/28/25 21:59 Morphine Sulfate 3 mg Q4HPRN PRN IV 01/27/25 16:30 UNV objective GEN: NAD ABD: soft. NT. laboratory and microbiology Laboratory Tests 01/27/25 10:30 01/24/25 09:50 Test 01/27/25 10:30 Range/Units Serum Glucose 235 H 74-106 mg/dL Assessment/Plan A: 1. Perforated viscus with small to moderate amount of pneumoperitoneum but clinically improving. 2. LUQ abscess s/p percutaneous drainage. P: 1. cont curr tx 2. repeat imaging study this weekend for leak. if no leak, dc ngt and start clear liquid diet 3. wean off pain meds. Dietary Evaluation Review Comments: 1. Advance TPN to meet at least 75% estimated needs 2. Contineu current POC Expected Outcomes/Goals: To meet >75% estimated needs Fu 2-3 days Plan discussed with: Patient JACKLYN OLMEDO MD January 27, 2025 12:45
[2025-01-27] MEDS: AMIODARONE 360mg/200mL PREMIX 200 ML IV SCH (14:20)
--- NOTE | 2025-01-27 15:17 | DVHPN2 ---
Progress Note - Dictate Date Seen: January 27, 2025 Medical Necessity Reason Pt with a Central, PICC or Fol: No vital signs Vital Sign Date Time Temp Pulse Resp B/P (MAP) Pulse Ox O2 Delivery O2 Flow Rate FiO2 01/27/25 13:22 62 18 100 01/27/25 13:00 97.3 107/51 (69) 97.3 01/27/25 08:00 Nasal Cannula* 4 36 Total Intake and Output 01/26/25 01/26/25 01/27/25 13:00 21:00 05:00 Intake Total 0 ml 300 ml Output Total 900 ml 1350 ml Balance -900 ml -1050 ml medications Current Medications Medications Dose Ordered Sig/Vincent Route Start Time Stop Time Status Last Admin Dose Admin Warfarin Sodium RX PROTOCOL PER PHARMACY PO 01/15/25 01:45 Cancel Albuterol 2.5 mg Q4HPRN PRN NEB 01/15/25 01:45 01/27/25 13:18 2.5 MG Ipratropium [place] 0.5 mg Q4HPRN PRN NEB 01/15/25 01:45 01/27/25 13:18 0.5 MG Acetaminophen/ Hydrocodone Bitart 1 tab Q4HP PRN PO 01/15/25 01:45 Hold 01/15/25 02:57 1 TAB Ondansetron HCl 4 mg Q4HP PRN IV 01/15/25 01:45 01/27/25 09:51 4 MG Docusate Sodium 100 mg BIDPRN PRN PO 01/15/25 01:45 Acetaminophen 650 mg Q6HP PRN PO 01/15/25 01:45 Nitroglycerin 0.4 mg Q5MINP PRN SL 01/15/25 01:45 Pantoprazole Sodium 40 mg BID IV 01/15/25 10:00 01/27/25 09:50 40 MG Amino Acids 0 ml @ 0 mls/hr PER PHARMACY IV 01/16/25 13:15 Sodium Chloride 10 ml QSHIFT@10,22 IV 01/16/25 22:00 01/27/25 10:00 10 ML Hydralazine HCl 10 mg Q6HP PRN IV 01/16/25 20:00 Lorazepam 0.5 mg Q6HP PRN IV 01/17/25 07:45 01/23/25 05:58 0.5 MG Diagnostic Test (Pha) 1 strip Q6HR 01/17/25 18:00 01/27/25 11:52 1 STRIP Insulin Human Regular FOLLOW SLIDING SCALE Q6HR SC 01/17/25 18:00 01/27/25 12:17 8 UNITS Dextrose 50 ml UD IV 01/17/25 18:00 Metoprolol Tartrate 2.5 mg Q6HPRN PRN IV 01/19/25 13:00 Enoxaparin Sodium 110 mg Q12HR SC 01/20/25 22:00 01/27/25 09:51 110 MG Doxycycline Hyclate 100 ml @ 50 mls/hr Q12H IV 01/25/25 13:00 01/27/25 12:36 50 MLS/HR Piperacillin Sod/ Tazobactam Sod 100 ml @ 25 mls/hr Q8H IV 01/25/25 15:00 01/27/25 09:52 25 MLS/HR Fat Emulsion Intravenous 100 ml/Sodium Chloride 50 meq/ Sodium Phosphate 10 meq/Potassium Chloride 20 meq/ Potassium Phosphate 33 meq/ Magnesium Sulfate 18 meq/ Multivitamins 10 ml/Chromium/ Copper/Manganese/ Zinc 1 ml/Insulin Human Regular 47 units/Amino Acids/ Dextrose 1,448.47 ml @ 60 mls/hr Q24H9M IV 01/26/25 22:00 01/27/25 21:59 01/26/25 22:00 60 MLS/HR Potassium Chloride 100 ml @ 50 mls/hr Q2H IV 01/26/25 17:30 01/26/25 21:29 UNV Fat Emulsion Intravenous 125 ml/Sodium Chloride 60 meq/ Sodium Phosphate 10 meq/Potassium Chloride 30 meq/ Magnesium Sulfate 14 meq/ Multivitamins 10 ml/Chromium/ Copper/Manganese/ Zinc 1 ml/Insulin Human Regular 47 units/Amino Acids/ Dextrose 1,472.47 ml @ 61 mls/hr Q24H9M IV 01/27/25 22:00 01/28/25 21:59 Morphine Sulfate 3 mg Q4HPRN PRN IV 01/27/25 16:30 laboratory and microbiology Laboratory Tests 01/27/25 10:30 01/24/25 09:50 Test 01/27/25 10:30 Range/Units Serum Glucose 235 H 74-106 mg/dL Assessment/Plan Impression Acute hypoxemic respiratory failure Morbid obesity COPD- stable SBO Patient seen and examined Events Low oxygen requirements On 2 liters nasal cannula No acute events S/p intraabdominal abscess drainage with Dr. [place] Remains NPO post op Labs and imaging reviewed Management Supplemental oxygen Titrate to maintain sats 90% or above Incentive spirometry Continue antibiotics F/u cultures Bronchodilators Monitor renal function Monitor electrolytes Supplement as needed Pain control Avoid oversedation F/u general surgery DVT prophylaxis Dietary Evaluation Review Comments: 1. Advance TPN to meet at least 75% estimated needs 2. Contineu current POC Expected Outcomes/Goals: To meet >75% estimated needs Fu 2-3 days Plan discussed with: Patient MIK COLLAZO MD January 27, 2025 15:17
[2025-01-27] MEDS: MORPHINE SULFATE 4 MG/ML SYR/VIAL IV PRN (17:51)
[2025-01-27] MEDS: TPN PER PHARMACY IV NR (22:08)
[2025-01-28] VITALS (15 sets, daily range): BP systolic 97–129; BP diastolic 42–52; PULSE 61–74; RESP 18–20; TEMP 97.6–98.2; O2SAT 93–100
[2025-01-28 07:01] LABS: Alanine Aminotransferase 20 U/L (7-40); Alkaline Phosphatase 79 U/L (46-116); Anion Gap 4 (5-15); Blood Urea Nitrogen 18 mg/dL (9-23); Chloride 100 mmol/L (98-107); Magnesium 2.3 mg/dL (1.6-2.6); Sodium 138 mmol/L (136-145)
[2025-01-28 07:02] LABS: Aspartate Aminotransferase 19 U/L (13-40)
[2025-01-28 07:03] LABS: Phosphorus 2.4 mg/dL (2.4-5.1)
[2025-01-28 07:04] LABS: Albumin 2.9 g/dL (3.2-4.8); Bilirubin, Total < 0.2 mg/dL (0.2-1.0); Calcium 8.7 mg/dL (8.7-10.4); Carbon Dioxide 34 mmol/L (20-31); Glucose 225 mg/dL (74-106); Potassium 3.3 mmol/L (3.5-5.1)
[2025-01-28] MEDS: POTASSIUM CHL 20MEQ/100ML 100 ML IV ONE (10:46)
--- NOTE | 2025-01-28 11:01 | DVHPN2 ---
Progress Note - Dictate Date Seen: January 28, 2025 Medical Necessity Reason Pt with a Central, PICC or Fol: No vital signs Vital Sign Date Time Temp Pulse Resp B/P (MAP) Pulse Ox O2 Delivery O2 Flow Rate FiO2 01/28/25 08:58 67 20 113/49 01/28/25 08:33 98.2 96 98.2 01/28/25 07:41 Nasal Cannula* 4 36 Total Intake and Output 01/27/25 01/27/25 01/28/25 14:59 22:59 06:59 Intake Total 100 ml 200 ml 200 ml Output Total 1100 ml 750 ml Balance 100 ml -900 ml -550 ml medications Current Medications Medications Dose Ordered Sig/Vincent Route Start Time Stop Time Status Last Admin Dose Admin Warfarin Sodium RX PROTOCOL PER PHARMACY PO 01/15/25 01:45 Cancel Albuterol 2.5 mg Q4HPRN PRN NEB 01/15/25 01:45 01/27/25 21:35 2.5 MG Ipratropium [place] 0.5 mg Q4HPRN PRN NEB 01/15/25 01:45 01/27/25 21:35 0.5 MG Acetaminophen/ Hydrocodone Bitart 1 tab Q4HP PRN PO 01/15/25 01:45 Hold 01/15/25 02:57 1 TAB Ondansetron HCl 4 mg Q4HP PRN IV 01/15/25 01:45 01/28/25 08:57 4 MG Docusate Sodium 100 mg BIDPRN PRN PO 01/15/25 01:45 Acetaminophen 650 mg Q6HP PRN PO 01/15/25 01:45 Nitroglycerin 0.4 mg Q5MINP PRN SL 01/15/25 01:45 Pantoprazole Sodium 40 mg BID IV 01/15/25 10:00 01/28/25 09:45 40 MG Amino Acids 0 ml @ 0 mls/hr PER PHARMACY IV 01/16/25 13:15 Sodium Chloride 10 ml QSHIFT@10,22 IV 01/16/25 22:00 01/28/25 10:10 10 ML Hydralazine HCl 10 mg Q6HP PRN IV 01/16/25 20:00 Lorazepam 0.5 mg Q6HP PRN IV 01/17/25 07:45 01/23/25 05:58 0.5 MG Diagnostic Test (Pha) 1 strip Q6HR 01/17/25 18:00 01/28/25 06:00 1 STRIP Insulin Human Regular FOLLOW SLIDING SCALE Q6HR SC 01/17/25 18:00 01/28/25 06:41 8 UNITS Dextrose 50 ml UD IV 01/17/25 18:00 Metoprolol Tartrate 2.5 mg Q6HPRN PRN IV 01/19/25 13:00 Enoxaparin Sodium 110 mg Q12HR SC 01/20/25 22:00 01/28/25 09:46 110 MG Doxycycline Hyclate 100 ml @ 50 mls/hr Q12H IV 01/25/25 13:00 01/28/25 02:28 50 MLS/HR Piperacillin Sod/ Tazobactam Sod 100 ml @ 25 mls/hr Q8H IV 01/25/25 15:00 01/28/25 06:32 25 MLS/HR Potassium Chloride 100 ml @ 50 mls/hr Q2H IV 01/26/25 17:30 01/26/25 21:29 UNV Fat Emulsion Intravenous 125 ml/Sodium Chloride 60 meq/ Sodium Phosphate 10 meq/Potassium Chloride 30 meq/ Magnesium Sulfate 14 meq/ Multivitamins 10 ml/Chromium/ Copper/Manganese/ Zinc 1 ml/Insulin Human Regular 47 units/Amino Acids/ Dextrose 1,472.47 ml @ 61 mls/hr Q24H9M IV 01/27/25 22:00 01/28/25 21:59 01/27/25 22:08 61 MLS/HR Morphine Sulfate 3 mg Q4HPRN PRN IV 01/27/25 16:30 01/28/25 08:58 3 MG Fat Emulsion Intravenous 150 ml/Sodium Chloride 60 meq/ Sodium Phosphate 20 meq/Potassium Chloride 20 meq/ Potassium Phosphate 22 meq/ Magnesium Sulfate 8 meq/ Multivitamins 10 ml/Chromium/ Copper/Manganese/ Zinc 1 ml/Insulin Human Regular 50 units/Amino Acids/ Dextrose 1,498.5 ml @ 62 mls/hr [id number] IV 01/28/25 22:00 01/29/25 21:59 laboratory and microbiology Laboratory Tests 01/28/25 04:57 01/24/25 09:50 Test 01/28/25 04:57 Range/Units Serum Glucose 225 H 74-106 mg/dL Assessment/Plan Impression Acute hypoxemic respiratory failure Morbid obesity COPD- stable SBO Patient seen and examined Events Low oxygen requirements On 2 liters nasal cannula No acute events S/p intraabdominal abscess drainage with Dr. [place] Remains NPO post op Labs and imaging reviewed Management Supplemental oxygen Titrate to maintain sats 90% or above Incentive spirometry Continue antibiotics F/u cultures Bronchodilators Monitor renal function Monitor electrolytes Supplement as needed Pain control Avoid oversedation F/u general surgery DVT prophylaxis Dietary Evaluation Review Comments: 1. Advance TPN to meet at least 75% estimated needs 2. Contineu current POC Expected Outcomes/Goals: To meet >75% estimated needs Fu 2-3 days Plan discussed with: Patient MIK COLLAZO MD January 28, 2025 11:01
--- NOTE | 2025-01-28 11:21 | DVHPN2 ---
Progress Note - Dictate Date Seen: January 28, 2025 Medical Necessity Reason Pt with a Central, PICC or Fol: No Subjective E: no major events o/n. no complaints. vital signs Vital Sign Date Time Temp Pulse Resp B/P (MAP) Pulse Ox O2 Delivery O2 Flow Rate FiO2 01/28/25 08:58 67 20 113/49 01/28/25 08:33 98.2 96 98.2 01/28/25 07:41 Nasal Cannula* 4 36 Total Intake and Output 01/27/25 01/27/25 01/28/25 15:00 23:00 07:00 Intake Total 100 ml 200 ml 200 ml Output Total 1100 ml 750 ml Balance 100 ml -900 ml -550 ml medications Current Medications Medications Dose Ordered Sig/Vincent Route Start Time Stop Time Status Last Admin Dose Admin Warfarin Sodium RX PROTOCOL PER PHARMACY PO 01/15/25 01:45 Cancel Albuterol 2.5 mg Q4HPRN PRN NEB 01/15/25 01:45 01/27/25 21:35 2.5 MG Ipratropium [place] 0.5 mg Q4HPRN PRN NEB 01/15/25 01:45 01/27/25 21:35 0.5 MG Acetaminophen/ Hydrocodone Bitart 1 tab Q4HP PRN PO 01/15/25 01:45 Hold 01/15/25 02:57 1 TAB Ondansetron HCl 4 mg Q4HP PRN IV 01/15/25 01:45 01/28/25 08:57 4 MG Docusate Sodium 100 mg BIDPRN PRN PO 01/15/25 01:45 Acetaminophen 650 mg Q6HP PRN PO 01/15/25 01:45 Nitroglycerin 0.4 mg Q5MINP PRN SL 01/15/25 01:45 Pantoprazole Sodium 40 mg BID IV 01/15/25 10:00 01/28/25 09:45 40 MG Amino Acids 0 ml @ 0 mls/hr PER PHARMACY IV 01/16/25 13:15 Sodium Chloride 10 ml QSHIFT@10,22 IV 01/16/25 22:00 01/28/25 10:10 10 ML Hydralazine HCl 10 mg Q6HP PRN IV 01/16/25 20:00 Lorazepam 0.5 mg Q6HP PRN IV 01/17/25 07:45 01/23/25 05:58 0.5 MG Diagnostic Test (Pha) 1 strip Q6HR 01/17/25 18:00 01/28/25 06:00 1 STRIP Insulin Human Regular FOLLOW SLIDING SCALE Q6HR SC 01/17/25 18:00 01/28/25 06:41 8 UNITS Dextrose 50 ml UD IV 01/17/25 18:00 Metoprolol Tartrate 2.5 mg Q6HPRN PRN IV 01/19/25 13:00 Enoxaparin Sodium 110 mg Q12HR SC 01/20/25 22:00 01/28/25 09:46 110 MG Doxycycline Hyclate 100 ml @ 50 mls/hr Q12H IV 01/25/25 13:00 01/28/25 02:28 50 MLS/HR Piperacillin Sod/ Tazobactam Sod 100 ml @ 25 mls/hr Q8H IV 01/25/25 15:00 01/28/25 06:32 25 MLS/HR Potassium Chloride 100 ml @ 50 mls/hr Q2H IV 01/26/25 17:30 01/26/25 21:29 UNV Fat Emulsion Intravenous 125 ml/Sodium Chloride 60 meq/ Sodium Phosphate 10 meq/Potassium Chloride 30 meq/ Magnesium Sulfate 14 meq/ Multivitamins 10 ml/Chromium/ Copper/Manganese/ Zinc 1 ml/Insulin Human Regular 47 units/Amino Acids/ Dextrose 1,472.47 ml @ 61 mls/hr Q24H9M IV 01/27/25 22:00 01/28/25 21:59 01/27/25 22:08 61 MLS/HR Morphine Sulfate 3 mg Q4HPRN PRN IV 01/27/25 16:30 01/28/25 08:58 3 MG Fat Emulsion Intravenous 150 ml/Sodium Chloride 60 meq/ Sodium Phosphate 20 meq/Potassium Chloride 20 meq/ Potassium Phosphate 22 meq/ Magnesium Sulfate 8 meq/ Multivitamins 10 ml/Chromium/ Copper/Manganese/ Zinc 1 ml/Insulin Human Regular 50 units/Amino Acids/ Dextrose 1,498.5 ml @ 62 mls/hr [id number] IV 01/28/25 22:00 01/29/25 21:59 objective GEN: NAD ABD: soft. NT. laboratory and microbiology Laboratory Tests 01/28/25 04:57 01/24/25 09:50 Test 01/28/25 04:57 Range/Units Serum Glucose 225 H 74-106 mg/dL Assessment/Plan A: 1. Perforated viscus with small to moderate amount of pneumoperitoneum but clinically improving. 2. LUQ abscess s/p percutaneous drainage. P: 1. cont curr tx 2. repeat imaging study this weekend for leak. if no leak, dc ngt and start clear liquid diet 3. wean off pain meds. Dietary Evaluation Review Comments: 1. Advance TPN to meet at least 75% estimated needs 2. Contineu current POC Expected Outcomes/Goals: To meet >75% estimated needs Fu 2-3 days Plan discussed with: Patient JACKLYN OLMEDO MD January 28, 2025 11:21
[2025-01-28 12:36] LABS: Basophils # (auto) 0 10 ^3/uL (0-0.2); Basophils % (auto) 0.2 % (0.0-2.0); Eosinophils # (auto) 0.2 10 ^3/uL (0-0.8)
--- NOTE | 2025-01-28 12:36 | DVHPN2 ---
Reviewed: Care Plan, H&P, Labs, Medications, Previous Orders, Radiology Changes from previous H/P or p: No Changes General: Per HPI Objective Vitals Vital Signs Date Time Temp Pulse Resp B/P (MAP) Pulse Ox O2 Delivery O2 Flow Rate FiO2 01/28/25 11:51 63 18 98 01/28/25 11:44 Nasal Cannula* 4 36 01/28/25 08:58 113/49 01/28/25 08:33 98.2 98.2 Intake/Output Intake and Output 01/28/25 07:00 Intake Total 500 ml Output Total 1850 ml Balance -1350 ml Intake Oral 0 ml IV Total 500 ml Output Urine Total 1450 ml Gastric Drainage Total 400 ml # Bowel Movements 2 General Appearance: Alert, Oriented X3, No acute distress HEENT: Atraumatic, PERRLA, EOMI, Mucous membr. moist/pink Neck: Supple Lungs: Clear to auscultation, Normal air movement Cardiovascular: Regular rate, Normal S1, Normal S2, No murmurs, Gallops, Rubs Abdomen: Normal bowel sounds, Soft, No tenderness Neuro: Cranial nerves 3-12 NL Psych/Mental Status: Mental status NL Medications Current Medications Medications Dose Ordered Sig/Vincent Route Start Time Stop Time Status Last Admin Dose Admin Warfarin Sodium RX PROTOCOL PER PHARMACY PO 01/15/25 01:45 Cancel Albuterol 2.5 mg Q4HPRN PRN NEB 01/15/25 01:45 01/28/25 11:44 2.5 MG Ipratropium [place] 0.5 mg Q4HPRN PRN NEB 01/15/25 01:45 01/28/25 11:44 0.5 MG Acetaminophen/ Hydrocodone Bitart 1 tab Q4HP PRN PO 01/15/25 01:45 Hold 01/15/25 02:57 1 TAB Ondansetron HCl 4 mg Q4HP PRN IV 01/15/25 01:45 01/28/25 08:57 4 MG Docusate Sodium 100 mg BIDPRN PRN PO 01/15/25 01:45 Acetaminophen 650 mg Q6HP PRN PO 01/15/25 01:45 Nitroglycerin 0.4 mg Q5MINP PRN SL 01/15/25 01:45 Pantoprazole Sodium 40 mg BID IV 01/15/25 10:00 01/28/25 09:45 40 MG Amino Acids 0 ml @ 0 mls/hr PER PHARMACY IV 01/16/25 13:15 Sodium Chloride 10 ml QSHIFT@10,22 IV 01/16/25 22:00 01/28/25 10:10 10 ML Hydralazine HCl 10 mg Q6HP PRN IV 01/16/25 20:00 Lorazepam 0.5 mg Q6HP PRN IV 01/17/25 07:45 01/23/25 05:58 0.5 MG Diagnostic Test (Pha) 1 strip Q6HR 01/17/25 18:00 01/28/25 11:41 1 STRIP Insulin Human Regular FOLLOW SLIDING SCALE Q6HR SC 01/17/25 18:00 01/28/25 11:38 2 UNITS Dextrose 50 ml UD IV 01/17/25 18:00 Metoprolol Tartrate 2.5 mg Q6HPRN PRN IV 01/19/25 13:00 Enoxaparin Sodium 110 mg Q12HR SC 01/20/25 22:00 01/28/25 09:46 110 MG Doxycycline Hyclate 100 ml @ 50 mls/hr Q12H IV 01/25/25 13:00 01/28/25 02:28 50 MLS/HR Piperacillin Sod/ Tazobactam Sod 100 ml @ 25 mls/hr Q8H IV 01/25/25 15:00 01/28/25 06:32 25 MLS/HR Potassium Chloride 100 ml @ 50 mls/hr Q2H IV 01/26/25 17:30 01/26/25 21:29 UNV Fat Emulsion Intravenous 125 ml/Sodium Chloride 60 meq/ Sodium Phosphate 10 meq/Potassium Chloride 30 meq/ Magnesium Sulfate 14 meq/ Multivitamins 10 ml/Chromium/ Copper/Manganese/ Zinc 1 ml/Insulin Human Regular 47 units/Amino Acids/ Dextrose 1,472.47 ml @ 61 mls/hr Q24H9M IV 01/27/25 22:00 01/28/25 21:59 01/27/25 22:08 61 MLS/HR Morphine Sulfate 3 mg Q4HPRN PRN IV 01/27/25 16:30 01/28/25 08:58 3 MG Fat Emulsion Intravenous 150 ml/Sodium Chloride 60 meq/ Sodium Phosphate 20 meq/Potassium Chloride 20 meq/ Potassium Phosphate 22 meq/ Magnesium Sulfate 8 meq/ Multivitamins 10 ml/Chromium/ Copper/Manganese/ Zinc 1 ml/Insulin Human Regular 50 units/Amino Acids/ Dextrose 1,498.5 ml @ 62 mls/hr [id number] IV 01/28/25 22:00 01/29/25 21:59 Laboratory Results Laboratory Tests 01/24/25 09:50 01/28/25 04:57 Chemistry Test 01/28/25 04:57 Albumin 2.9 g/dL (3.2-4.8) L Calcium Level 8.7 mg/dL (8.7-10.4) Magnesium Level 2.3 mg/dL (1.6-2.6) Phosphorus Level 2.4 mg/dL (2.4-5.1) Total Protein 6.0 g/dL (5.7-8.2) LFT Test 01/28/25 04:57 Alanine Aminotransferase (ALT) 20 U/L (7-40) Alkaline Phosphatase 79 U/L (46-116) Aspartate Amino Transferase (AST) 19 U/L (13-40) Total Bilirubin < 0.2 mg/dL (0.2-1.0) L Urinalysis Test 01/15/25 01:59 Urine Color Light-yellow (Yellow) Urine Clarity Clear (Clear) Urine pH 6.0 (5.0-9.0) Urine Specific [place] 1.018 (1.001-1.035) Urine Protein Negative (Negative) Urine Ketones Negative (Negative) Urine Blood Negative /uL (Negative) Urine Nitrite Negative (Negative) Urine Bilirubin Negative (Negative) Urine Urobilinogen Normal mg/dL (Negative) Urine Leukocyte Esterase Negative /uL (Negative) Urine RBC <1 /hpf (0 - 3) Urine Microscopic WBC /HPF (0-3) Urine Squamous Epithelial Cells None seen /hpf (<5) Urine Bacteria None seen /hpf (None Seen) Urine Glucose 4+ mg/dL (Normal) H Microbiology Microbiology Date/Time Source Procedure Growth Status 01/25/25 09:35 Aspirate Gram Stain - Final Resulted 01/25/25 09:35 Body Fluid Culture - Preliminary Escherichia coli Resulted 01/15/25 00:28 Blood Blood Culture - Final NO GROWTH AFTER 5 DAYS OF INCUBATION. Complete Labs and/or images reviewed: Labs reviewed by me, Image(s) reviewed by me Assessment/Plan Assessment/Plan Near syncope likely due to below Acute epigastric abdominal pain, intractable, continue Zosyn and doxycycline Perforated viscus and pneumoperitoneum, with history of gastric bypass, conservative management consult by Dr. Bird appreciated Left upper quadrant abscess status post drainage Lactic acidosis, resolved Sepsis due to above Acute respiratory distress Diabetes with hyperglycemia AFib on Coumadin Tachypnea Lipase elevated, mild Nutrition TPN Time Spent 70 minutes Patient is full code Advanced care planning time 20 minutes Plan discussed with: Patient Date of Service: January 28, 2025 Billing Provider: PROMISE CASTANO MD Common Visit Codes: [id number] CARE 30-74 MIN PROMISE CASTANO MD January 28, 2025 12:36
[2025-01-28 12:38] LABS: Eosinophils % (auto) 1.5 % (0.0-7.0); Hematocrit 29.5 % (41.0-53.0); Hemoglobin 8.9 g/dL (13.5-17.5); Lymphocytes # (auto) 0.8 10 ^3/uL (0.4-5.4); Lymphocytes % (auto) 7.7 % (10.0-50.0); Mean Corpuscular Hemoglobin 22.4 pg (28.0-32.0); Mean Corpuscular Hgb Conc. 30.3 g/dL (32.0-36.0); Mean Corpuscular Volume 74.1 fL (80.0-100.0); Monocytes # (auto) 1.5 10 ^3/uL (0-1.3); Monocytes % (auto) 13.8 % (0.0-12.0); Neutrophils # (auto) 8.3 10 ^3/uL (1.6-8.6); Neutrophils % (auto) 76.8 % (37.0-80.0); Nucleated Red Blood Cells % 0.4 %; Platelet Count (auto) 487 10^3/uL (140-450); Red Blood Cells 3.97 10^6/uL (4.5-5.90); Red Cell Distribution Width 18.9 % (11.8-14.3); White Blood Cell 10.9 10^3/uL (4.4-10.8)
[2025-01-28] MEDS: POTASSIUM PHOSPHATE 22 MEQ in SODIUM CHL 0.9% 100 ML IV ONE ×2 (12:42→12:46)
[2025-01-28] MEDS: TPN PER PHARMACY IV NR (21:55)
[2025-01-29] VITALS (15 sets, daily range): BP systolic 111–150; BP diastolic 50–95; PULSE 57–86; RESP 17–22; TEMP 97.3–98.5; O2SAT 91–100
[2025-01-29 07:21] LABS: Basophils # (auto) 0 10 ^3/uL (0-0.2); Mean Corpuscular Hgb Conc. 30.2 g/dL (32.0-36.0); Monocytes # (auto) 1.1 10 ^3/uL (0-1.3); Nucleated Red Blood Cells % 0.2 %
[2025-01-29 07:23] LABS: Basophils % (auto) 0.5 % (0.0-2.0); Eosinophils # (auto) 0.2 10 ^3/uL (0-0.8); Eosinophils % (auto) 1.9 % (0.0-7.0); Hemoglobin 8.1 g/dL (13.5-17.5); Lymphocytes # (auto) 0.8 10 ^3/uL (0.4-5.4); Lymphocytes % (auto) 9.1 % (10.0-50.0); Mean Corpuscular Hemoglobin 22.4 pg (28.0-32.0); Monocytes % (auto) 13.4 % (0.0-12.0); Neutrophils # (auto) 6.2 10 ^3/uL (1.6-8.6); Neutrophils % (auto) 75.1 % (37.0-80.0); Platelet Count (auto) 483 10^3/uL (140-450); Red Blood Cells 3.64 10^6/uL (4.5-5.90); Red Cell Distribution Width 18.3 % (11.8-14.3); White Blood Cell 8.3 10^3/uL (4.4-10.8)
[2025-01-29 07:34] LABS: Alanine Aminotransferase 18 U/L (7-40); Alkaline Phosphatase 70 U/L (46-116); Anion Gap 2 (5-15); Aspartate Aminotransferase 14 U/L (13-40); BUN/Creatinine Ratio 27.9 (10.0-20.0); Blood Urea Nitrogen 19 mg/dL (9-23); Calcium 8.7 mg/dL (8.7-10.4); Chloride 100 mmol/L (98-107); Magnesium 2.2 mg/dL (1.6-2.6); Phosphorus 2.6 mg/dL (2.4-5.1); Sodium 138 mmol/L (136-145); Triglycerides 81 mg/dL (< 150)
[2025-01-29 07:39] LABS: Albumin 2.9 g/dL (3.2-4.8); Bilirubin, Total < 0.2 mg/dL (0.2-1.0); Carbon Dioxide 36 mmol/L (20-31); Glucose 209 mg/dL (74-106); Potassium 3.2 mmol/L (3.5-5.1)
--- NOTE | 2025-01-29 11:22 | DVHPN2 ---
Reviewed: Care Plan, H&P, Labs, Medications, Previous Orders, Radiology Changes from previous H/P or p: No Changes General: Per HPI Objective Vitals Vital Signs Date Time Temp Pulse Resp B/P (MAP) Pulse Ox O2 Delivery O2 Flow Rate FiO2 01/29/25 08:35 98.5 62 20 116/57 (76) 95 98.5 01/29/25 08:04 Nasal Cannula* 4 36 Intake/Output Intake and Output 01/29/25 07:00 Intake Total 500 ml Output Total 1725 ml Balance -1225 ml Intake Oral 0 ml IV Total 500 ml Output Urine Total 1675 ml Gastric Drainage Total 50 ml General Appearance: Alert, Oriented X3, No acute distress HEENT: Atraumatic, PERRLA, EOMI, Mucous membr. moist/pink Neck: Supple Lungs: Clear to auscultation, Normal air movement Cardiovascular: Regular rate, Normal S1, Normal S2, No murmurs, Gallops, Rubs Abdomen: Normal bowel sounds, Soft, No tenderness Neuro: Cranial nerves 3-12 NL Psych/Mental Status: Mental status NL Medications Current Medications Medications Dose Ordered Sig/Vincent Route Start Time Stop Time Status Last Admin Dose Admin Warfarin Sodium RX PROTOCOL PER PHARMACY PO 01/15/25 01:45 Cancel Albuterol 2.5 mg Q4HPRN PRN NEB 01/15/25 01:45 01/28/25 20:01 2.5 MG Ipratropium [place] 0.5 mg Q4HPRN PRN NEB 01/15/25 01:45 01/28/25 20:01 0.5 MG Acetaminophen/ Hydrocodone Bitart 1 tab Q4HP PRN PO 01/15/25 01:45 Hold 01/15/25 02:57 1 TAB Ondansetron HCl 4 mg Q4HP PRN IV 01/15/25 01:45 01/29/25 09:39 4 MG Docusate Sodium 100 mg BIDPRN PRN PO 01/15/25 01:45 Acetaminophen 650 mg Q6HP PRN PO 01/15/25 01:45 Nitroglycerin 0.4 mg Q5MINP PRN SL 01/15/25 01:45 Pantoprazole Sodium 40 mg BID IV 01/15/25 10:00 01/29/25 08:37 40 MG Amino Acids 0 ml @ 0 mls/hr PER PHARMACY IV 01/16/25 13:15 Sodium Chloride 10 ml QSHIFT@10,22 IV 01/16/25 22:00 01/29/25 08:38 10 ML Hydralazine HCl 10 mg Q6HP PRN IV 01/16/25 20:00 Lorazepam 0.5 mg Q6HP PRN IV 01/17/25 07:45 01/23/25 05:58 0.5 MG Diagnostic Test (Pha) 1 strip Q6HR 01/17/25 18:00 01/29/25 05:14 1 STRIP Insulin Human Regular FOLLOW SLIDING SCALE Q6HR SC 01/17/25 18:00 01/29/25 05:25 8 UNITS Dextrose 50 ml UD IV 01/17/25 18:00 Metoprolol Tartrate 2.5 mg Q6HPRN PRN IV 01/19/25 13:00 Enoxaparin Sodium 110 mg Q12HR SC 01/20/25 22:00 01/29/25 08:38 110 MG Doxycycline Hyclate 100 ml @ 50 mls/hr Q12H IV 01/25/25 13:00 01/29/25 01:53 50 MLS/HR Piperacillin Sod/ Tazobactam Sod 100 ml @ 25 mls/hr Q8H IV 01/25/25 15:00 01/29/25 05:14 25 MLS/HR Potassium Chloride 100 ml @ 50 mls/hr Q2H IV 01/26/25 17:30 01/26/25 21:29 UNV Morphine Sulfate 3 mg Q4HPRN PRN IV 01/27/25 16:30 01/29/25 07:40 3 MG Fat Emulsion Intravenous 150 ml/Sodium Chloride 60 meq/ Sodium Phosphate 20 meq/Potassium Chloride 20 meq/ Potassium Phosphate 22 meq/ Magnesium Sulfate 8 meq/ Multivitamins 10 ml/Chromium/ Copper/Manganese/ Zinc 1 ml/Insulin Human Regular 50 units/Amino Acids/ Dextrose 1,498.5 ml @ 62 mls/hr [id number] IV 01/28/25 22:00 01/29/25 21:59 01/28/25 21:55 62 MLS/HR Laboratory Results Laboratory Tests 01/29/25 06:57 Chemistry Test 01/29/25 06:57 Albumin 2.9 g/dL (3.2-4.8) L Calcium Level 8.7 mg/dL (8.7-10.4) Magnesium Level 2.2 mg/dL (1.6-2.6) Phosphorus Level 2.6 mg/dL (2.4-5.1) Total Protein 6.0 g/dL (5.7-8.2) Lipid panel Test 01/29/25 06:57 Triglycerides Level 81 mg/dL (< 150) LFT Test 01/29/25 06:57 Alanine Aminotransferase (ALT) 18 U/L (7-40) Alkaline Phosphatase 70 U/L (46-116) Aspartate Amino Transferase (AST) 14 U/L (13-40) Total Bilirubin < 0.2 mg/dL (0.2-1.0) L Urinalysis Test 01/15/25 01:59 Urine Color Light-yellow (Yellow) Urine Clarity Clear (Clear) Urine pH 6.0 (5.0-9.0) Urine Specific [place] [address] 1.018 (1.001-1.035) Urine Protein Negative (Negative) Urine Ketones Negative (Negative) Urine Blood Negative /uL (Negative) Urine Nitrite Negative (Negative) Urine Bilirubin Negative (Negative) Urine Urobilinogen Normal mg/dL (Negative) Urine Leukocyte Esterase Negative /uL (Negative) Urine RBC <1 /hpf (0 - 3) Urine Microscopic WBC /HPF (0-3) Urine Squamous Epithelial Cells None seen /hpf (<5) Urine Bacteria None seen /hpf (None Seen) Urine Glucose 4+ mg/dL (Normal) H Microbiology Microbiology Date/Time Source Procedure Growth Status 01/25/25 09:35 Aspirate Gram Stain - Final Resulted 01/25/25 09:35 Body Fluid Culture - Preliminary Escherichia coli Resulted 01/15/25 00:28 Blood Blood Culture - Final NO GROWTH AFTER 5 DAYS OF INCUBATION. Complete Labs and/or images reviewed: Labs reviewed by me, Image(s) reviewed by me Assessment/Plan Assessment/Plan Near syncope likely due to below Acute epigastric abdominal pain, intractable, continue Zosyn and doxycycline Perforated viscus and pneumoperitoneum, with history of gastric bypass, conservative management consult by Dr. Bird appreciated Left upper quadrant abscess status post drainage Lactic acidosis, resolved Sepsis due to above Acute respiratory distress Diabetes with hyperglycemia AFib on Coumadin Tachypnea Lipase elevated, mild Nutrition TPN Time Spent 65 minutes Patient is full code Plan discussed with: Patient My Orders Orders - PROMISE CASTANO MD Procedure Category Date Status Time Complete Blood Count LAB 01/30/25 Verified 05:00 Complete Blood Count LAB 01/31/25 Verified 05:00 Complete Blood Count LAB 02/01/25 Verified 05:00 Complete Blood Count LAB 02/02/25 Verified 05:00 Complete Blood Count LAB 02/03/25 Verified 05:00 Basic Metabolic Panel LAB 01/30/25 Verified 05:00 Basic Metabolic Panel LAB 01/31/25 Verified 05:00 Basic Metabolic Panel LAB 02/01/25 Verified 05:00 Basic Metabolic Panel LAB 02/02/25 Verified 05:00 Basic Metabolic Panel LAB 02/03/25 Verified 05:00 Date of Service: Jan 29, 2025 Billing Provider: PROMISE CASTANO MD Common Visit Codes: [id number] INP/OBS CARE(HIGH) PROMISE CASTANO MD Jan 29, 2025 11:21
[2025-01-29] MEDS: POTASSIUM CHL 20MEQ/100ML 100 ML IV ONE (14:10)
--- NOTE | 2025-01-29 14:46 | DVHPN2 ---
Progress Note - Dictate Date Seen: Jan 29, 2025 Medical Necessity Reason Pt with a Central, PICC or Fol: No vital signs Vital Sign Date Time Temp Pulse Resp B/P (MAP) Pulse Ox O2 Delivery O2 Flow Rate FiO2 01/29/25 13:01 64 20 111/50 01/29/25 12:58 97.3 91 97.3 01/29/25 11:39 Nasal Cannula* 6 44 Total Intake and Output 01/28/25 01/28/25 01/29/25 15:00 23:00 07:00 Intake Total 400 ml 100 ml 0 ml Output Total 950 ml 775 ml Balance 400 ml -850 ml -775 ml medications Current Medications Medications Dose Ordered Sig/Vincent Route Start Time Stop Time Status Last Admin Dose Admin Warfarin Sodium RX PROTOCOL PER PHARMACY PO 01/15/25 01:45 Cancel Albuterol 2.5 mg Q4HPRN PRN NEB 01/15/25 01:45 01/29/25 11:39 2.5 MG Ipratropium [place] 0.5 mg Q4HPRN PRN NEB 01/15/25 01:45 01/29/25 11:39 0.5 MG Acetaminophen/ Hydrocodone Bitart 1 tab Q4HP PRN PO 01/15/25 01:45 Hold 01/15/25 02:57 1 TAB Ondansetron HCl 4 mg Q4HP PRN IV 01/15/25 01:45 01/29/25 14:10 4 MG Docusate Sodium 100 mg BIDPRN PRN PO 01/15/25 01:45 Acetaminophen 650 mg Q6HP PRN PO 01/15/25 01:45 Nitroglycerin 0.4 mg Q5MINP PRN SL 01/15/25 01:45 Pantoprazole Sodium 40 mg BID IV 01/15/25 10:00 01/29/25 08:37 40 MG Amino Acids 0 ml @ 0 mls/hr PER PHARMACY IV 01/16/25 13:15 Sodium Chloride 10 ml QSHIFT@10,22 IV 01/16/25 22:00 01/29/25 08:38 10 ML Hydralazine HCl 10 mg Q6HP PRN IV 01/16/25 20:00 Lorazepam 0.5 mg Q6HP PRN IV 01/17/25 07:45 01/23/25 05:58 0.5 MG Diagnostic Test (Pha) 1 strip Q6HR 01/17/25 18:00 01/29/25 11:46 1 STRIP Insulin Human Regular FOLLOW SLIDING SCALE Q6HR SC 01/17/25 18:00 01/29/25 11:49 4 UNITS Dextrose 50 ml UD IV 01/17/25 18:00 Metoprolol Tartrate 2.5 mg Q6HPRN PRN IV 01/19/25 13:00 Enoxaparin Sodium 110 mg Q12HR SC 01/20/25 22:00 01/29/25 08:38 110 MG Doxycycline Hyclate 100 ml @ 50 mls/hr Q12H IV 01/25/25 13:00 01/29/25 12:37 50 MLS/HR Piperacillin Sod/ Tazobactam Sod 100 ml @ 25 mls/hr Q8H IV 01/25/25 15:00 01/29/25 05:14 25 MLS/HR Potassium Chloride 100 ml @ 50 mls/hr Q2H IV 01/26/25 17:30 01/26/25 21:29 UNV Morphine Sulfate 3 mg Q4HPRN PRN IV 01/27/25 16:30 01/29/25 12:31 3 MG Fat Emulsion Intravenous 150 ml/Sodium Chloride 60 meq/ Sodium Phosphate 20 meq/Potassium Chloride 20 meq/ Potassium Phosphate 22 meq/ Magnesium Sulfate 8 meq/ Multivitamins 10 ml/Chromium/ Copper/Manganese/ Zinc 1 ml/Insulin Human Regular 50 units/Amino Acids/ Dextrose 1,498.5 ml @ 62 mls/hr [id number] IV 01/28/25 22:00 01/29/25 21:59 01/28/25 21:55 62 MLS/HR Fat Emulsion Intravenous 200 ml/Sodium Chloride 60 meq/ Sodium Phosphate 20 meq/Potassium Chloride 20 meq/ Potassium Phosphate 33 meq/ Magnesium Sulfate 8 meq/ Multivitamins 10 ml/Chromium/ Copper/Manganese/ Zinc 1 ml/Insulin Human Regular 50 units/Amino Acids/ Dextrose 1,551 ml @ 65 mls/hr [id number] IV 01/29/25 22:00 01/30/25 21:59 laboratory and microbiology Laboratory Tests 01/29/25 06:57 Test 01/29/25 06:57 Range/Units Serum Glucose 209 H 74-106 mg/dL Assessment/Plan Impression Acute hypoxemic respiratory failure Morbid obesity COPD- stable SBO Patient seen and examined Events Low oxygen requirements On 2 liters nasal cannula No acute events S/p intraabdominal abscess drainage with Dr. [place] Remains NPO post op Labs and imaging reviewed Management Supplemental oxygen Titrate to maintain sats 90% or above Incentive spirometry Continue antibiotics F/u cultures Bronchodilators Monitor renal function Monitor electrolytes Supplement as needed Pain control Avoid oversedation F/u general surgery DVT prophylaxis Dietary Evaluation Review Comments: 1. Advance TPN to meet at least 75% estimated needs 2. Contineu current POC Expected Outcomes/Goals: To meet >75% estimated needs Fu 2-3 days Plan discussed with: Other (rn) MIK COLLAZO MD Jan 29, 2025 14:46
--- NOTE | 2025-01-29 14:54 | DVHPN2 ---
Progress Note - Dictate Date Seen: Jan 29, 2025 Medical Necessity Reason Pt with a Central, PICC or Fol: No Subjective E: no major events o/n. no complaints. vital signs Vital Sign Date Time Temp Pulse Resp B/P (MAP) Pulse Ox O2 Delivery O2 Flow Rate FiO2 01/29/25 13:01 64 20 111/50 01/29/25 12:58 97.3 91 97.3 01/29/25 11:39 Nasal Cannula* 6 44 Total Intake and Output 01/28/25 01/28/25 01/29/25 15:00 23:00 07:00 Intake Total 400 ml 100 ml 0 ml Output Total 950 ml 775 ml Balance 400 ml -850 ml -775 ml medications Current Medications Medications Dose Ordered Sig/Vincent Route Start Time Stop Time Status Last Admin Dose Admin Warfarin Sodium RX PROTOCOL PER PHARMACY PO 01/15/25 01:45 Cancel Albuterol 2.5 mg Q4HPRN PRN NEB 01/15/25 01:45 01/29/25 11:39 2.5 MG Ipratropium [place] 0.5 mg Q4HPRN PRN NEB 01/15/25 01:45 01/29/25 11:39 0.5 MG Acetaminophen/ Hydrocodone Bitart 1 tab Q4HP PRN PO 01/15/25 01:45 Hold 01/15/25 02:57 1 TAB Ondansetron HCl 4 mg Q4HP PRN IV 01/15/25 01:45 01/29/25 14:10 4 MG Docusate Sodium 100 mg BIDPRN PRN PO 01/15/25 01:45 Acetaminophen 650 mg Q6HP PRN PO 01/15/25 01:45 Nitroglycerin 0.4 mg Q5MINP PRN SL 01/15/25 01:45 Pantoprazole Sodium 40 mg BID IV 01/15/25 10:00 01/29/25 08:37 40 MG Amino Acids 0 ml @ 0 mls/hr PER PHARMACY IV 01/16/25 13:15 Sodium Chloride 10 ml QSHIFT@10,22 IV 01/16/25 22:00 01/29/25 08:38 10 ML Hydralazine HCl 10 mg Q6HP PRN IV 01/16/25 20:00 Lorazepam 0.5 mg Q6HP PRN IV 01/17/25 07:45 01/23/25 05:58 0.5 MG Diagnostic Test (Pha) 1 strip Q6HR 01/17/25 18:00 01/29/25 11:46 1 STRIP Insulin Human Regular FOLLOW SLIDING SCALE Q6HR SC 01/17/25 18:00 01/29/25 11:49 4 UNITS Dextrose 50 ml UD IV 01/17/25 18:00 Metoprolol Tartrate 2.5 mg Q6HPRN PRN IV 01/19/25 13:00 Enoxaparin Sodium 110 mg Q12HR SC 01/20/25 22:00 01/29/25 08:38 110 MG Doxycycline Hyclate 100 ml @ 50 mls/hr Q12H IV 01/25/25 13:00 01/29/25 12:37 50 MLS/HR Piperacillin Sod/ Tazobactam Sod 100 ml @ 25 mls/hr Q8H IV 01/25/25 15:00 01/29/25 05:14 25 MLS/HR Potassium Chloride 100 ml @ 50 mls/hr Q2H IV 01/26/25 17:30 01/26/25 21:29 UNV Morphine Sulfate 3 mg Q4HPRN PRN IV 01/27/25 16:30 01/29/25 12:31 3 MG Fat Emulsion Intravenous 150 ml/Sodium Chloride 60 meq/ Sodium Phosphate 20 meq/Potassium Chloride 20 meq/ Potassium Phosphate 22 meq/ Magnesium Sulfate 8 meq/ Multivitamins 10 ml/Chromium/ Copper/Manganese/ Zinc 1 ml/Insulin Human Regular 50 units/Amino Acids/ Dextrose 1,498.5 ml @ 62 mls/hr [id number] IV 01/28/25 22:00 01/29/25 21:59 01/28/25 21:55 62 MLS/HR Fat Emulsion Intravenous 200 ml/Sodium Chloride 60 meq/ Sodium Phosphate 20 meq/Potassium Chloride 20 meq/ Potassium Phosphate 33 meq/ Magnesium Sulfate 8 meq/ Multivitamins 10 ml/Chromium/ Copper/Manganese/ Zinc 1 ml/Insulin Human Regular 50 units/Amino Acids/ Dextrose 1,551 ml @ 65 mls/hr [id number] IV 01/29/25 22:00 01/30/25 21:59 objective GEN: NAD ABD: soft. NT. laboratory and microbiology Laboratory Tests 01/29/25 06:57 Test 01/29/25 06:57 Range/Units Serum Glucose 209 H 74-106 mg/dL Assessment/Plan A: 1. Perforated viscus with small to moderate amount of pneumoperitoneum but clinically improving. 2. LUQ abscess s/p percutaneous drainage. P: 1. unable to do SBFT today d/t no radiologist being present inhouse. scheduled for tomorrow. if no leak, dc ngt and start clear liquid diet. Dietary Evaluation Review Comments: 1. Advance TPN to meet at least 75% estimated needs 2. Contineu current POC Expected Outcomes/Goals: To meet >75% estimated needs Fu 2-3 days Plan discussed with: Patient JACKLYN OLMEDO MD Jan 29, 2025 14:53
[2025-01-29] MEDS: POTASSIUM PHOSPHATE 22 MEQ in SODIUM CHL 0.9% 100 ML IV ONE (17:46)
[2025-01-30] VITALS (12 sets, daily range): BP systolic 108–139; BP diastolic 55–68; PULSE 60–80; RESP 18–20; TEMP 96.9–98; O2SAT 86–100
[2025-01-30 05:02] LABS: Chloride 98 mmol/L (98-107); Sodium 136 mmol/L (136-145)
[2025-01-30 05:03] LABS: Anion Gap 3 (5-15)
[2025-01-30 05:08] LABS: BUN/Creatinine Ratio 26.2 (10.0-20.0); Blood Urea Nitrogen 16 mg/dL (9-23)
[2025-01-30 05:12] LABS: Calcium 8.1 mg/dL (8.7-10.4); Carbon Dioxide 35 mmol/L (20-31); Glucose 216 mg/dL (74-106); Potassium 3.2 mmol/L (3.5-5.1)
[2025-01-30 06:23] LABS: Hemoglobin 8.6 g/dL (13.5-17.5); Lymphocytes # (auto) 0.8 10 ^3/uL (0.4-5.4)
[2025-01-30 06:26] LABS: Basophils # (auto) 0 10 ^3/uL (0-0.2); Basophils % (auto) 0.6 % (0.0-2.0); Eosinophils # (auto) 0.2 10 ^3/uL (0-0.8); Eosinophils % (auto) 1.9 % (0.0-7.0); Hematocrit 28.7 % (41.0-53.0); Lymphocytes % (auto) 9.2 % (10.0-50.0); Mean Corpuscular Hemoglobin 21.9 pg (28.0-32.0); Monocytes # (auto) 1.1 10 ^3/uL (0-1.3); Monocytes % (auto) 12.3 % (0.0-12.0); Neutrophils # (auto) 6.8 10 ^3/uL (1.6-8.6); Nucleated Red Blood Cells % 0.2 %; Platelet Count (auto) 535 10^3/uL (140-450); Red Blood Cells 3.93 10^6/uL (4.5-5.90); Red Cell Distribution Width 18.3 % (11.8-14.3); White Blood Cell 8.9 10^3/uL (4.4-10.8)
--- NOTE | 2025-01-30 09:19 | DVHPN2 ---
Progress Note - Dictate Date Seen: Jan 30, 2025 Medical Necessity Reason Pt with a Central, PICC or Fol: No Subjective E: no major events o/n. no complaints. vital signs Vital Sign Date Time Temp Pulse Resp B/P (MAP) Pulse Ox O2 Delivery O2 Flow Rate FiO2 01/30/25 08:34 98.0 65 20 129/60 (83) 90 98.0 01/30/25 08:00 Nasal Cannula* 4 36 Total Intake and Output 01/29/25 01/29/25 01/30/25 15:00 23:00 07:00 Intake Total 200 ml 100 ml 500 ml Output Total 1100 ml Balance 200 ml -1000 ml 500 ml medications Current Medications Medications Dose Ordered Sig/Vincent Route Start Time Stop Time Status Last Admin Dose Admin Warfarin Sodium RX PROTOCOL PER PHARMACY PO 01/15/25 01:45 Cancel Albuterol 2.5 mg Q4HPRN PRN NEB 01/15/25 01:45 01/29/25 23:28 2.5 MG Ipratropium [place] 0.5 mg Q4HPRN PRN NEB 01/15/25 01:45 01/29/25 23:28 0.5 MG Acetaminophen/ Hydrocodone Bitart 1 tab Q4HP PRN PO 01/15/25 01:45 Hold 01/15/25 02:57 1 TAB Ondansetron HCl 4 mg Q4HP PRN IV 01/15/25 01:45 01/30/25 06:19 4 MG Docusate Sodium 100 mg BIDPRN PRN PO 01/15/25 01:45 Acetaminophen 650 mg Q6HP PRN PO 01/15/25 01:45 Nitroglycerin 0.4 mg Q5MINP PRN SL 01/15/25 01:45 Pantoprazole Sodium 40 mg BID IV 01/15/25 10:00 01/29/25 20:44 40 MG Amino Acids 0 ml @ 0 mls/hr PER PHARMACY IV 01/16/25 13:15 Sodium Chloride 10 ml QSHIFT@10,22 IV 01/16/25 22:00 01/29/25 20:44 10 ML Hydralazine HCl 10 mg Q6HP PRN IV 01/16/25 20:00 Lorazepam 0.5 mg Q6HP PRN IV 01/17/25 07:45 01/23/25 05:58 0.5 MG Diagnostic Test (Pha) 1 strip Q6HR 01/17/25 18:00 01/30/25 06:08 1 STRIP Insulin Human Regular FOLLOW SLIDING SCALE Q6HR SC 01/17/25 18:00 01/30/25 06:26 8 UNITS Dextrose 50 ml UD IV 01/17/25 18:00 Metoprolol Tartrate 2.5 mg Q6HPRN PRN IV 01/19/25 13:00 Enoxaparin Sodium 110 mg Q12HR SC 01/20/25 22:00 01/29/25 20:44 110 MG Doxycycline Hyclate 100 ml @ 50 mls/hr Q12H IV 01/25/25 13:00 01/30/25 00:26 50 MLS/HR Piperacillin Sod/ Tazobactam Sod 100 ml @ 25 mls/hr Q8H IV 01/25/25 15:00 01/30/25 06:08 25 MLS/HR Potassium Chloride 100 ml @ 50 mls/hr Q2H IV 01/26/25 17:30 01/26/25 21:29 UNV Morphine Sulfate 3 mg Q4HPRN PRN IV 01/27/25 16:30 01/30/25 06:20 3 MG Fat Emulsion Intravenous 200 ml/Sodium Chloride 60 meq/ Sodium Phosphate 20 meq/Potassium Chloride 20 meq/ Potassium Phosphate 33 meq/ Magnesium Sulfate 8 meq/ Multivitamins 10 ml/Chromium/ Copper/Manganese/ Zinc 1 ml/Insulin Human Regular 50 units/Amino Acids/ Dextrose 1,551 ml @ 65 mls/hr [id number] IV 01/29/25 22:00 01/30/25 21:59 01/29/25 20:56 65 MLS/HR objective GEN: NAD ABD: soft. NT. laboratory and microbiology Laboratory Tests 01/30/25 05:55 01/30/25 04:34 Test 01/30/25 04:34 Range/Units Serum Glucose 216 H 74-106 mg/dL Assessment/Plan A: 1. Perforated viscus with small to moderate amount of pneumoperitoneum but clinically stable 2. LUQ abscess s/p percutaneous drainage. P: 1. UGI with gastrografin today. if no leak, dc ngt and start clear liquid diet. Dietary Evaluation Review Comments: 1. Advance TPN to meet at least 75% estimated needs 2. Contineu current POC Expected Outcomes/Goals: To meet >75% estimated needs Fu 2-3 days Plan discussed with: Patient JACKLYN OLMEDO MD Jan 30, 2025 09:19
[2025-01-30 11:44] LABS: Magnesium 2.1 mg/dL (1.6-2.6)
[2025-01-30 11:45] LABS: Phosphorus 2.8 mg/dL (2.4-5.1)
--- NOTE | 2025-01-30 12:20 | DVHPN2 ---
Reviewed: Care Plan, H&P, Labs, Medications, Previous Orders, Radiology Changes from previous H/P or p: No Changes General: Per HPI Objective Vitals Vital Signs Date Time Temp Pulse Resp B/P (MAP) Pulse Ox O2 Delivery O2 Flow Rate FiO2 01/30/25 10:48 65 18 122/59 01/30/25 08:34 98.0 90 98.0 01/30/25 08:00 Nasal Cannula* 4 36 Intake/Output Intake and Output 01/30/25 07:00 Intake Total 800 ml Output Total 1100 ml Balance -300 ml Intake Oral 500 ml IV Total 300 ml Output Urine Total 1100 ml General Appearance: Alert, Oriented X3, No acute distress HEENT: Atraumatic, PERRLA, EOMI, Mucous membr. moist/pink Neck: Supple Lungs: Clear to auscultation, Normal air movement Cardiovascular: Regular rate, Normal S1, Normal S2, No murmurs, Gallops, Rubs Abdomen: Normal bowel sounds, Soft, No tenderness Neuro: Cranial nerves 3-12 NL Psych/Mental Status: Mental status NL Medications Current Medications Medications Dose Ordered Sig/Vincent Route Start Time Stop Time Status Last Admin Dose Admin Warfarin Sodium RX PROTOCOL PER PHARMACY PO 01/15/25 01:45 Cancel Albuterol 2.5 mg Q4HPRN PRN NEB 01/15/25 01:45 01/29/25 23:28 2.5 MG Ipratropium [place] 0.5 mg Q4HPRN PRN NEB 01/15/25 01:45 01/29/25 23:28 0.5 MG Acetaminophen/ Hydrocodone Bitart 1 tab Q4HP PRN PO 01/15/25 01:45 Hold 01/15/25 02:57 1 TAB Ondansetron HCl 4 mg Q4HP PRN IV 01/15/25 01:45 01/30/25 10:47 4 MG Docusate Sodium 100 mg BIDPRN PRN PO 01/15/25 01:45 Acetaminophen 650 mg Q6HP PRN PO 01/15/25 01:45 Nitroglycerin 0.4 mg Q5MINP PRN SL 01/15/25 01:45 Pantoprazole Sodium 40 mg BID IV 01/15/25 10:00 01/30/25 09:23 40 MG Amino Acids 0 ml @ 0 mls/hr PER PHARMACY IV 01/16/25 13:15 Sodium Chloride 10 ml QSHIFT@10,22 IV 01/16/25 22:00 01/30/25 09:23 10 ML Hydralazine HCl 10 mg Q6HP PRN IV 01/16/25 20:00 Lorazepam 0.5 mg Q6HP PRN IV 01/17/25 07:45 01/23/25 05:58 0.5 MG Diagnostic Test (Pha) 1 strip Q6HR 01/17/25 18:00 01/30/25 11:58 1 STRIP Insulin Human Regular FOLLOW SLIDING SCALE Q6HR SC 01/17/25 18:00 01/30/25 12:02 8 UNITS Dextrose 50 ml UD IV 01/17/25 18:00 Metoprolol Tartrate 2.5 mg Q6HPRN PRN IV 01/19/25 13:00 Enoxaparin Sodium 110 mg Q12HR SC 01/20/25 22:00 01/30/25 09:24 110 MG Doxycycline Hyclate 100 ml @ 50 mls/hr Q12H IV 01/25/25 13:00 01/30/25 11:58 50 MLS/HR Piperacillin Sod/ Tazobactam Sod 100 ml @ 25 mls/hr Q8H IV 01/25/25 15:00 01/30/25 06:08 25 MLS/HR Potassium Chloride 100 ml @ 50 mls/hr Q2H IV 01/26/25 17:30 01/26/25 21:29 UNV Morphine Sulfate 3 mg Q4HPRN PRN IV 01/27/25 16:30 01/30/25 10:48 3 MG Fat Emulsion Intravenous 200 ml/Sodium Chloride 60 meq/ Sodium Phosphate 20 meq/Potassium Chloride 20 meq/ Potassium Phosphate 33 meq/ Magnesium Sulfate 8 meq/ Multivitamins 10 ml/Chromium/ Copper/Manganese/ Zinc 1 ml/Insulin Human Regular 50 units/Amino Acids/ Dextrose 1,551 ml @ 65 mls/hr [id number] IV 01/29/25 22:00 01/30/25 21:59 01/29/25 20:56 65 MLS/HR Potassium Chloride 100 ml @ 50 mls/hr Q2H IV 01/30/25 12:00 01/30/25 15:59 Fat Emulsion Intravenous 200 ml/Sodium Chloride 80 meq/ Sodium Phosphate 20 meq/Potassium Chloride 60 meq/ Potassium Phosphate 22 meq/ Calcium Gluconate 2.3 meq/Magnesium Sulfate 10 meq/ Multivitamins 10 ml/Chromium/ Copper/Manganese/ Zinc 1 ml/Insulin Human Regular 50 units/Amino Acids/ Dextrose 1,528.9462 ml @ 64 mls/hr [id number] IV 01/30/25 22:00 01/31/25 21:59 Laboratory Results Laboratory Tests 01/30/25 04:34 01/30/25 05:55 Chemistry Test 01/30/25 04:34 Albumin 3.0 g/dL (3.2-4.8) L Calcium Level 8.1 mg/dL (8.7-10.4) L Magnesium Level 2.1 mg/dL (1.6-2.6) Phosphorus Level 2.8 mg/dL (2.4-5.1) Urinalysis Test 01/15/25 01:59 Urine Color Light-yellow (Yellow) Urine Clarity Clear (Clear) Urine pH 6.0 (5.0-9.0) Urine Specific [place] 1.018 (1.001-1.035) Urine Protein Negative (Negative) Urine Ketones Negative (Negative) Urine Blood Negative /uL (Negative) Urine Nitrite Negative (Negative) Urine Bilirubin Negative (Negative) Urine Urobilinogen Normal mg/dL (Negative) Urine Leukocyte Esterase Negative /uL (Negative) Urine RBC <1 /hpf (0 - 3) Urine Microscopic WBC /HPF (0-3) Urine Squamous Epithelial Cells None seen /hpf (<5) Urine Bacteria None seen /hpf (None Seen) Urine Glucose 4+ mg/dL (Normal) H Microbiology Microbiology Date/Time Source Procedure Growth Status 01/25/25 09:35 Aspirate Gram Stain - Final Complete 01/25/25 09:35 Body Fluid Culture - Final Escherichia coli Presumptive Zenaida albicans Complete 01/15/25 00:28 Blood Blood Culture - Final NO GROWTH AFTER 5 DAYS OF INCUBATION. Complete Labs and/or images reviewed: Labs reviewed by me, Image(s) reviewed by me Assessment/Plan Assessment/Plan Near syncope likely due to below Acute epigastric abdominal pain, intractable, continue Zosyn and doxycycline Perforated viscus and pneumoperitoneum, with history of gastric bypass, conservative management consult by Dr. Bird appreciated Left upper quadrant abscess status post drainage Lactic acidosis, resolved Sepsis due to above Acute respiratory distress Diabetes with hyperglycemia AFib on Coumadin Tachypnea Lipase elevated, mild Acute Hypokalemia: Replace potassium Nutrition TPN Time Spent 55 minutes Patient is full code Plan discussed with: Patient Date of Service: Jan 30, 2025 Billing Provider: PROMISE CASTANO MD Common Visit Codes: [id number] INP/OBS CARE(HIGH) PROMISE CASTANO MD Jan 30, 2025 12:20
--- NOTE | 2025-01-30 12:26 | DVHPN2 ---
Progress Note Date Seen: Jan 30, 2025 Medical Necessity Reason Pt with a Central, PICC or Fol: No Objective vital signs Vital Sign Date Time Temp Pulse Resp B/P (MAP) Pulse Ox O2 Delivery O2 Flow Rate FiO2 01/30/25 10:48 65 18 122/59 01/30/25 08:34 98.0 90 98.0 01/30/25 08:00 Nasal Cannula* 4 36 Total Intake and Output 01/29/25 01/29/25 01/30/25 15:00 23:00 07:00 Intake Total 200 ml 100 ml 500 ml Output Total 1100 ml Balance 200 ml -1000 ml 500 ml medications Current Medications Medications Dose Ordered Sig/Vincent Route Start Time Stop Time Status Last Admin Dose Admin Warfarin Sodium RX PROTOCOL PER PHARMACY PO 01/15/25 01:45 Cancel Albuterol 2.5 mg Q4HPRN PRN NEB 01/15/25 01:45 01/29/25 23:28 2.5 MG Ipratropium [place] 0.5 mg Q4HPRN PRN NEB 01/15/25 01:45 01/29/25 23:28 0.5 MG Acetaminophen/ Hydrocodone Bitart 1 tab Q4HP PRN PO 01/15/25 01:45 Hold 01/15/25 02:57 1 TAB Ondansetron HCl 4 mg Q4HP PRN IV 01/15/25 01:45 01/30/25 10:47 4 MG Docusate Sodium 100 mg BIDPRN PRN PO 01/15/25 01:45 Acetaminophen 650 mg Q6HP PRN PO 01/15/25 01:45 Nitroglycerin 0.4 mg Q5MINP PRN SL 01/15/25 01:45 Pantoprazole Sodium 40 mg BID IV 01/15/25 10:00 01/30/25 09:23 40 MG Amino Acids 0 ml @ 0 mls/hr PER PHARMACY IV 01/16/25 13:15 Sodium Chloride 10 ml QSHIFT@10,22 IV 01/16/25 22:00 01/30/25 09:23 10 ML Hydralazine HCl 10 mg Q6HP PRN IV 01/16/25 20:00 Lorazepam 0.5 mg Q6HP PRN IV 01/17/25 07:45 01/23/25 05:58 0.5 MG Diagnostic Test (Pha) 1 strip Q6HR 01/17/25 18:00 01/30/25 11:58 1 STRIP Insulin Human Regular FOLLOW SLIDING SCALE Q6HR SC 01/17/25 18:00 01/30/25 12:02 8 UNITS Dextrose 50 ml UD IV 01/17/25 18:00 Metoprolol Tartrate 2.5 mg Q6HPRN PRN IV 01/19/25 13:00 Enoxaparin Sodium 110 mg Q12HR SC 01/20/25 22:00 01/30/25 09:24 110 MG Doxycycline Hyclate 100 ml @ 50 mls/hr Q12H IV 01/25/25 13:00 01/30/25 11:58 50 MLS/HR Piperacillin Sod/ Tazobactam Sod 100 ml @ 25 mls/hr Q8H IV 01/25/25 15:00 01/30/25 06:08 25 MLS/HR Potassium Chloride 100 ml @ 50 mls/hr Q2H IV 01/26/25 17:30 01/26/25 21:29 UNV Morphine Sulfate 3 mg Q4HPRN PRN IV 01/27/25 16:30 01/30/25 10:48 3 MG Fat Emulsion Intravenous 200 ml/Sodium Chloride 60 meq/ Sodium Phosphate 20 meq/Potassium Chloride 20 meq/ Potassium Phosphate 33 meq/ Magnesium Sulfate 8 meq/ Multivitamins 10 ml/Chromium/ Copper/Manganese/ Zinc 1 ml/Insulin Human Regular 50 units/Amino Acids/ Dextrose 1,551 ml @ 65 mls/hr [id number] IV 01/29/25 22:00 01/30/25 21:59 01/29/25 20:56 65 MLS/HR Potassium Chloride 100 ml @ 50 mls/hr Q2H IV 01/30/25 12:00 01/30/25 15:59 Fat Emulsion Intravenous 200 ml/Sodium Chloride 80 meq/ Sodium Phosphate 20 meq/Potassium Chloride 60 meq/ Potassium Phosphate 22 meq/ Calcium Gluconate 2.3 meq/Magnesium Sulfate 10 meq/ Multivitamins 10 ml/Chromium/ Copper/Manganese/ Zinc 1 ml/Insulin Human Regular 50 units/Amino Acids/ Dextrose 1,528.9462 ml @ 64 mls/hr [id number] IV 01/30/25 22:00 01/31/25 21:59 laboratory and microbiology Laboratory Tests 01/30/25 05:55 6/2/25 04:34 Test 01/30/25 04:34 Range/Units Serum Glucose 216 H 74-106 mg/dL Problem List/Assessment/Plan Problem List/Assessment/Plan 01/19/25 ASSUMING CARE FROM : PATIENT IS A MORBIDLY OBESE MALE WHO HAD A BARIATRIC OPERATION ( GASTRIC BYPASS?) 10 YEARS AGO WHICH LED TO A 100 LB LOSS. 4 DAYS AGO WAS ADMITTED WITH ABDOMINAL PAIN AND WAS FOUND TO HAVE PNEUMOPERITONEUM, THUS FAR HAS BEEN TREATED CONSERVATIVELY, A GASTROGRAFIN UGI X RAY SHOWS PERSISTENT LEAK FORM UPPER GI TRACT (PROBABLY GASTROENTERIC ANASTOMOSIS. HE REMAINS SYMPTOM FREE (PAIN STOPPED ABOUT 24 HOURS AGO), HE IS AFEBRILE, ABDOMEN IS OBESE, NON DISTENDED, NONTENDER, CONTINUE NON OPERATIVE TREATMENT, WITH NGT TO CONTINUOUS SUCTION, STRICT NPO, IV FLUIDS AND NUTRITION. OBSERVE FOR EVIDENCE OF SEPSIS . REPEAT CHEST/ABDOMEN CT SCAN WITH CONTRAST IN 72 HOURS. . 01/20/25 patient had a panic attack abdomen continues to be non tender, and non distended, patient "feels like is going to have a bowel movement" and thionks he is passing flatus. continue as is, 01/25/25 patient had 230 cc of pus drained by IR yesterday, feels better, abdomen is soft and nontender, patient having BM's. will wait another 48 hours and repeat Gastrografin UGI to see if leak sealed. 01/26/25 FEELS BETTER BUT HAS NOT BEEN AMBULATING. ABDOMEN NON TENDER. 01/30/25 clinically unchanged, awaiting UGI xray Plan discussed with: Patient Dietary Evaluation Review Comments: 1. Advance TPN to meet at least 75% estimated needs 2. Contineu current POC Expected Outcomes/Goals: To meet >75% estimated needs Fu 2-3 days JACK MAURICE MD Jan 30, 2025 12:26
[2025-01-30] MEDS: POTASSIUM CHL 20MEQ/100ML 100 ML IV SCH (14:00)
[2025-01-30] MEDS: TPN PER PHARMACY IV NR (22:25)
[2025-01-31] VITALS (13 sets, daily range): BP systolic 124–140; BP diastolic 53–73; PULSE 54–80; RESP 18–20; TEMP 96.7–97.9; O2SAT 63–100
[2025-01-31 06:27] LABS: Alanine Aminotransferase 15 U/L (7-40); Alkaline Phosphatase 70 U/L (46-116); Anion Gap 6 (5-15); Aspartate Aminotransferase 16 U/L (13-40); BUN/Creatinine Ratio 23.1 (10.0-20.0); Blood Urea Nitrogen 15 mg/dL (9-23); Magnesium 2.2 mg/dL (1.6-2.6); Phosphorus 2.6 mg/dL (2.4-5.1); Potassium 3.5 mmol/L (3.5-5.1); Sodium 137 mmol/L (136-145); Total Protein 6.4 g/dL (5.7-8.2)
[2025-01-31 06:28] LABS: Eosinophils # (auto) 0.2 10 ^3/uL (0-0.8); Hematocrit 29.2 % (41.0-53.0); Hemoglobin 8.7 g/dL (13.5-17.5); Lymphocytes # (auto) 0.8 10 ^3/uL (0.4-5.4); Lymphocytes % (auto) 10.1 % (10.0-50.0); Mean Corpuscular Hemoglobin 21.9 pg (28.0-32.0); Mean Corpuscular Hgb Conc. 29.9 g/dL (32.0-36.0); Monocytes # (auto) 0.8 10 ^3/uL (0-1.3); Red Cell Distribution Width 18.4 % (11.8-14.3); White Blood Cell 8.1 10^3/uL (4.4-10.8)
[2025-01-31 06:34] LABS: Basophils # (auto) 0.1 10 ^3/uL (0-0.2); Basophils % (auto) 0.8 % (0.0-2.0); Bilirubin, Total < 0.2 mg/dL (0.2-1.0); Calcium 8.6 mg/dL (8.7-10.4); Carbon Dioxide 33 mmol/L (20-31); Chloride 98 mmol/L (98-107); Eosinophils % (auto) 1.9 % (0.0-7.0); Glucose 194 mg/dL (74-106); Mean Corpuscular Volume 73.4 fL (80.0-100.0); Monocytes % (auto) 9.4 % (0.0-12.0); Neutrophils # (auto) 6.3 10 ^3/uL (1.6-8.6); Neutrophils % (auto) 77.8 % (37.0-80.0); Nucleated Red Blood Cells % 0.4 %; Platelet Count (auto) 487 10^3/uL (140-450); Red Blood Cells 3.98 10^6/uL (4.5-5.90)
--- NOTE | 2025-01-31 09:53 | DVHPN2 ---
Progress Note Date Seen: Jan 31, 2025 Medical Necessity Reason Pt with a Central, PICC or Fol: No Objective vital signs Vital Sign Date Time Temp Pulse Resp B/P (MAP) Pulse Ox O2 Delivery O2 Flow Rate FiO2 01/31/25 09:38 61 16 118/54 01/31/25 09:00 97.0 97 97.0 01/31/25 00:20 3.0 32 01/30/25 22:12 Nasal Cannula* Total Intake and Output 01/30/25 01/30/25 01/31/25 15:00 23:00 07:00 Intake Total 200 ml 100 ml 700 ml Output Total 900 ml 1200 ml Balance 200 ml -800 ml -500 ml medications Current Medications Medications Dose Ordered Sig/Vincent Route Start Time Stop Time Status Last Admin Dose Admin Warfarin Sodium RX PROTOCOL PER PHARMACY PO 01/15/25 01:45 Cancel Albuterol 2.5 mg Q4HPRN PRN NEB 01/15/25 01:45 01/30/25 22:12 2.5 MG Ipratropium [place] 0.5 mg Q4HPRN PRN NEB 01/15/25 01:45 01/30/25 22:12 0.5 MG Acetaminophen/ Hydrocodone Bitart 1 tab Q4HP PRN PO 01/15/25 01:45 Hold 01/15/25 02:57 1 TAB Ondansetron HCl 4 mg Q4HP PRN IV 01/15/25 01:45 01/31/25 09:37 4 MG Docusate Sodium 100 mg BIDPRN PRN PO 01/15/25 01:45 Acetaminophen 650 mg Q6HP PRN PO 01/15/25 01:45 Nitroglycerin 0.4 mg Q5MINP PRN SL 01/15/25 01:45 Pantoprazole Sodium 40 mg BID IV 01/15/25 10:00 01/31/25 09:37 40 MG Amino Acids 0 ml @ 0 mls/hr PER PHARMACY IV 01/16/25 13:15 Sodium Chloride 10 ml QSHIFT@10,22 IV 01/16/25 22:00 01/31/25 09:37 10 ML Hydralazine HCl 10 mg Q6HP PRN IV 01/16/25 20:00 Lorazepam 0.5 mg Q6HP PRN IV 01/17/25 07:45 01/23/25 05:58 0.5 MG Diagnostic Test (Pha) 1 strip Q6HR 01/17/25 18:00 01/31/25 05:34 1 STRIP Insulin Human Regular FOLLOW SLIDING SCALE Q6HR SC 01/17/25 18:00 01/31/25 05:37 4 UNITS Dextrose 50 ml UD IV 01/17/25 18:00 Metoprolol Tartrate 2.5 mg Q6HPRN PRN IV 01/19/25 13:00 Enoxaparin Sodium 110 mg Q12HR SC 01/20/25 22:00 01/31/25 09:38 110 MG Doxycycline Hyclate 100 ml @ 50 mls/hr Q12H IV 01/25/25 13:00 01/31/25 02:25 50 MLS/HR Piperacillin Sod/ Tazobactam Sod 100 ml @ 25 mls/hr Q8H IV 01/25/25 15:00 01/31/25 06:38 25 MLS/HR Potassium Chloride 100 ml @ 50 mls/hr Q2H IV 01/26/25 17:30 01/26/25 21:29 UNV Morphine Sulfate 3 mg Q4HPRN PRN IV 01/27/25 16:30 01/31/25 09:38 3 MG Fat Emulsion Intravenous 200 ml/Sodium Chloride 80 meq/ Sodium Phosphate 20 meq/Potassium Chloride 60 meq/ Potassium Phosphate 22 meq/ Calcium Gluconate 2.3 meq/Magnesium Sulfate 10 meq/ Multivitamins 10 ml/Chromium/ Copper/Manganese/ Zinc 1 ml/Insulin Human Regular 50 units/Amino Acids/ Dextrose 1,528.9462 ml @ 64 mls/hr [id number] IV 01/30/25 22:00 01/31/25 21:59 01/30/25 22:25 64 MLS/HR laboratory and microbiology Laboratory Tests 01/31/25 05:23 Test 01/31/25 05:23 Range/Units Serum Glucose 194 H 74-106 mg/dL Problem List/Assessment/Plan Problem List/Assessment/Plan 01/19/25 ASSUMING CARE FROM : PATIENT IS A MORBIDLY OBESE MALE WHO HAD A BARIATRIC OPERATION ( GASTRIC BYPASS?) 10 YEARS AGO WHICH LED TO A 100 LB LOSS. 4 DAYS AGO WAS ADMITTED WITH ABDOMINAL PAIN AND WAS FOUND TO HAVE PNEUMOPERITONEUM, THUS FAR HAS BEEN TREATED CONSERVATIVELY, A GASTROGRAFIN UGI X RAY SHOWS PERSISTENT LEAK FORM UPPER GI TRACT (PROBABLY GASTROENTERIC ANASTOMOSIS. HE REMAINS SYMPTOM FREE (PAIN STOPPED ABOUT 24 HOURS AGO), HE IS AFEBRILE, ABDOMEN IS OBESE, NON DISTENDED, NONTENDER, CONTINUE NON OPERATIVE TREATMENT, WITH NGT TO CONTINUOUS SUCTION, STRICT NPO, IV FLUIDS AND NUTRITION. OBSERVE FOR EVIDENCE OF SEPSIS . REPEAT CHEST/ABDOMEN CT SCAN WITH CONTRAST IN 72 HOURS. . 01/20/25 patient had a panic attack abdomen continues to be non tender, and non distended, patient "feels like is going to have a bowel movement" and thionks he is passing flatus. continue as is, 01/25/25 patient had 230 cc of pus drained by IR yesterday, feels better, abdomen is soft and nontender, patient having BM's. will wait another 48 hours and repeat Gastrografin UGI to see if leak sealed. 01/26/25 FEELS BETTER BUT HAS NOT BEEN AMBULATING. ABDOMEN NON TENDER. 01/30/25 clinically unchanged, awaiting UGI xray 01/31/25 somehow ugi x ray has been rescheduled twice, patient is understandably frustrated, abdomen is non tender, drainage non purulent, will wait for result, have ordered UGI with gastrografin to be done STAT today Plan discussed with: Patient, Other Dietary Evaluation Review Comments: 1. Advance TPN to meet at least 75% estimated needs 2. Contineu current POC Expected Outcomes/Goals: To meet >75% estimated needs Fu 2-3 days JACK MAURICE MD Jan 31, 2025 09:53
[2025-01-31] MEDS: GASTROGRAFIN 120 ML SOL ONE (09:56)
--- NOTE | 2025-01-31 12:02 | DVHPN2 ---
Reviewed: Care Plan, H&P, Labs, Medications, Previous Orders, Radiology Changes from previous H/P or p: No Changes General: Per HPI Objective Vitals Vital Signs Date Time Temp Pulse Resp B/P (MAP) Pulse Ox O2 Delivery O2 Flow Rate FiO2 01/31/25 10:08 68 18 128/56 01/31/25 09:00 97.0 97 97.0 01/31/25 06:13 Nasal Cannula* 3 32 Intake/Output Intake and Output 01/31/25 07:00 Intake Total 1000 ml Output Total 2100 ml Balance -1100 ml Intake Oral 300 ml IV Total 700 ml Output Urine Total 2100 ml # Bowel Movements 1 General Appearance: Alert, Oriented X3, No acute distress HEENT: Atraumatic, PERRLA, EOMI, Mucous membr. moist/pink Neck: Supple Lungs: Clear to auscultation, Normal air movement Cardiovascular: Regular rate, Normal S1, Normal S2, No murmurs, Gallops, Rubs Abdomen: Normal bowel sounds, Soft, No tenderness Neuro: Cranial nerves 3-12 NL Psych/Mental Status: Mental status NL Medications Current Medications Medications Dose Ordered Sig/Vincent Route Start Time Stop Time Status Last Admin Dose Admin Warfarin Sodium RX PROTOCOL PER PHARMACY PO 01/15/25 01:45 Cancel Albuterol 2.5 mg Q4HPRN PRN NEB 01/15/25 01:45 01/30/25 22:12 2.5 MG Ipratropium [place] 0.5 mg Q4HPRN PRN NEB 01/15/25 01:45 01/30/25 22:12 0.5 MG Acetaminophen/ Hydrocodone Bitart 1 tab Q4HP PRN PO 01/15/25 01:45 Hold 01/15/25 02:57 1 TAB Ondansetron HCl 4 mg Q4HP PRN IV 01/15/25 01:45 01/31/25 09:37 4 MG Docusate Sodium 100 mg BIDPRN PRN PO 01/15/25 01:45 Acetaminophen 650 mg Q6HP PRN PO 01/15/25 01:45 Nitroglycerin 0.4 mg Q5MINP PRN SL 01/15/25 01:45 Pantoprazole Sodium 40 mg BID IV 01/15/25 10:00 01/31/25 09:37 40 MG Amino Acids 0 ml @ 0 mls/hr PER PHARMACY IV 01/16/25 13:15 Sodium Chloride 10 ml QSHIFT@10,22 IV 01/16/25 22:00 01/31/25 09:37 10 ML Hydralazine HCl 10 mg Q6HP PRN IV 01/16/25 20:00 Lorazepam 0.5 mg Q6HP PRN IV 01/17/25 07:45 01/23/25 05:58 0.5 MG Diagnostic Test (Pha) 1 strip Q6HR 01/17/25 18:00 01/31/25 05:34 1 STRIP Insulin Human Regular FOLLOW SLIDING SCALE Q6HR SC 01/17/25 18:00 01/31/25 05:37 4 UNITS Dextrose 50 ml UD IV 01/17/25 18:00 Metoprolol Tartrate 2.5 mg Q6HPRN PRN IV 01/19/25 13:00 Enoxaparin Sodium 110 mg Q12HR SC 01/20/25 22:00 01/31/25 09:38 110 MG Doxycycline Hyclate 100 ml @ 50 mls/hr Q12H IV 01/25/25 13:00 01/31/25 02:25 50 MLS/HR Piperacillin Sod/ Tazobactam Sod 100 ml @ 25 mls/hr Q8H IV 01/25/25 15:00 01/31/25 06:38 25 MLS/HR Potassium Chloride 100 ml @ 50 mls/hr Q2H IV 01/26/25 17:30 01/26/25 21:29 UNV Morphine Sulfate 3 mg Q4HPRN PRN IV 01/27/25 16:30 01/31/25 09:38 3 MG Fat Emulsion Intravenous 200 ml/Sodium Chloride 80 meq/ Sodium Phosphate 20 meq/Potassium Chloride 60 meq/ Potassium Phosphate 22 meq/ Calcium Gluconate 2.3 meq/Magnesium Sulfate 10 meq/ Multivitamins 10 ml/Chromium/ Copper/Manganese/ Zinc 1 ml/Insulin Human Regular 50 units/Amino Acids/ Dextrose 1,528.9462 ml @ 64 mls/hr [id number] IV 01/30/25 22:00 01/31/25 21:59 01/30/25 22:25 64 MLS/HR Fat Emulsion Intravenous 200 ml/Sodium Chloride 90 meq/ Sodium Phosphate 20 meq/Potassium Chloride 70 meq/ Potassium Phosphate 33 meq/ Magnesium Sulfate 10 meq/ Multivitamins 10 ml/Chromium/ Copper/Manganese/ Zinc 1 ml/Insulin Human Regular 47 units/Amino Acids/ Dextrose 1,533.97 ml @ 63 mls/hr [id number] IV 01/31/25 22:00 02/01/25 21:59 Laboratory Results Laboratory Tests 01/31/25 05:23 Chemistry Test 01/31/25 05:23 Albumin 3.0 g/dL (3.2-4.8) L Calcium Level 8.6 mg/dL (8.7-10.4) L Magnesium Level 2.2 mg/dL (1.6-2.6) Phosphorus Level 2.6 mg/dL (2.4-5.1) Total Protein 6.4 g/dL (5.7-8.2) LFT Test 01/31/25 05:23 Alanine Aminotransferase (ALT) 15 U/L (7-40) Alkaline Phosphatase 70 U/L (46-116) Aspartate Amino Transferase (AST) 16 U/L (13-40) Total Bilirubin < 0.2 mg/dL (0.2-1.0) L Urinalysis Test 01/15/25 01:59 Urine Color Light-yellow (Yellow) Urine Clarity Clear (Clear) Urine pH 6.0 (5.0-9.0) Urine Specific [place] 1.018 (1.001-1.035) Urine Protein Negative (Negative) Urine Ketones Negative (Negative) Urine Blood Negative /uL (Negative) Urine Nitrite Negative (Negative) Urine Bilirubin Negative (Negative) Urine Urobilinogen Normal mg/dL (Negative) Urine Leukocyte Esterase Negative /uL (Negative) Urine RBC <1 /hpf (0 - 3) Urine Microscopic WBC /HPF (0-3) Urine Squamous Epithelial Cells None seen /hpf (<5) Urine Bacteria None seen /hpf (None Seen) Urine Glucose 4+ mg/dL (Normal) H Microbiology Microbiology Date/Time Source Procedure Growth Status 01/25/25 09:35 Aspirate Gram Stain - Final Complete 01/25/25 09:35 Body Fluid Culture - Final Escherichia coli Presumptive Zenaida albicans Complete 01/15/25 00:28 Blood Blood Culture - Final NO GROWTH AFTER 5 DAYS OF INCUBATION. Complete Labs and/or images reviewed: Labs reviewed by me, Image(s) reviewed by me Assessment/Plan Assessment/Plan Near syncope Intractable abdominal pain, continue Zosyn and doxycycline Perforated viscus and pneumoperitoneum, with history of gastric bypass, conservative management consult by Dr. Bird appreciated Left upper quadrant abscess status post drainage Lactic acidosis, resolved Sepsis due to above Acute respiratory distress Diabetes with hyperglycemia AFib on Coumadin Tachypnea Lipase elevated, mild Acute Hypokalemia: Replace potassium Nutrition TPN Time Spent 55 minutes Patient is full code Upper GI series pending Plan discussed with: Patient Date of Service: Jan 31, 2025 Billing Provider: PROMISE CASTANO MD Common Visit Codes: [id number] INP/OBS CARE(HIGH) PROMSIE CASTANO MD Jan 31, 2025 12:02
--- NOTE | 2025-01-31 12:13 | DVH ---
CLINICAL HISTORY: f/o leak gastroenterostomy COMPARISON: XY UGI WITH GASTROGRAFIN on DOS: 01/18/25 Technique: Enteric contrast was injected and multiple radiographic images obtained. PROCEDURE/FINDINGS: There is opacification of stomach and small bowel. IMPRESSION: Opacification of stomach and small bowel without findings of enteric contrast extravasation to sugges t the presence of leak.
[2025-01-31] MEDS: FLUCONAZOLE 200MG/100ML 100 ML IV SCH (13:00)
--- NOTE | 2025-01-31 14:00 | DVHPN2 ---
Progress Note Date Seen: Jan 31, 2025 Medical Necessity Reason Pt with a Central, PICC or Fol: No Objective vital signs Vital Sign Date Time Temp Pulse Resp B/P (MAP) Pulse Ox O2 Delivery O2 Flow Rate FiO2 01/31/25 12:56 97.6 68 19 128/56 (80) 97 97.6 01/31/25 06:13 Nasal Cannula* 3 32 Total Intake and Output 01/30/25 01/30/25 01/31/25 15:00 23:00 07:00 Intake Total 200 ml 100 ml 700 ml Output Total 900 ml 1200 ml Balance 200 ml -800 ml -500 ml medications Current Medications Medications Dose Ordered Sig/Vincent Route Start Time Stop Time Status Last Admin Dose Admin Warfarin Sodium RX PROTOCOL PER PHARMACY PO 01/15/25 01:45 Cancel Albuterol 2.5 mg Q4HPRN PRN NEB 01/15/25 01:45 01/30/25 22:12 2.5 MG Ipratropium [place] 0.5 mg Q4HPRN PRN NEB 01/15/25 01:45 01/30/25 22:12 0.5 MG Acetaminophen/ Hydrocodone Bitart 1 tab Q4HP PRN PO 01/15/25 01:45 Hold 01/15/25 02:57 1 TAB Ondansetron HCl 4 mg Q4HP PRN IV 01/15/25 01:45 01/31/25 09:37 4 MG Docusate Sodium 100 mg BIDPRN PRN PO 01/15/25 01:45 Acetaminophen 650 mg Q6HP PRN PO 01/15/25 01:45 Nitroglycerin 0.4 mg Q5MINP PRN SL 01/15/25 01:45 Pantoprazole Sodium 40 mg BID IV 01/15/25 10:00 01/31/25 09:37 40 MG Amino Acids 0 ml @ 0 mls/hr PER PHARMACY IV 01/16/25 13:15 Sodium Chloride 10 ml QSHIFT@10,22 IV 01/16/25 22:00 01/31/25 09:37 10 ML Hydralazine HCl 10 mg Q6HP PRN IV 01/16/25 20:00 Lorazepam 0.5 mg Q6HP PRN IV 01/17/25 07:45 01/23/25 05:58 0.5 MG Diagnostic Test (Pha) 1 strip Q6HR 01/17/25 18:00 01/31/25 12:00 1 STRIP Insulin Human Regular FOLLOW SLIDING SCALE Q6HR SC 01/17/25 18:00 01/31/25 12:00 8 UNITS Dextrose 50 ml UD IV 01/17/25 18:00 Metoprolol Tartrate 2.5 mg Q6HPRN PRN IV 01/19/25 13:00 Enoxaparin Sodium 110 mg Q12HR SC 01/20/25 22:00 01/31/25 09:38 110 MG Doxycycline Hyclate 100 ml @ 50 mls/hr Q12H IV 01/25/25 13:00 01/31/25 02:25 50 MLS/HR Piperacillin Sod/ Tazobactam Sod 100 ml @ 25 mls/hr Q8H IV 01/25/25 15:00 01/31/25 06:38 25 MLS/HR Potassium Chloride 100 ml @ 50 mls/hr Q2H IV 01/26/25 17:30 01/26/25 21:29 UNV Morphine Sulfate 3 mg Q4HPRN PRN IV 01/27/25 16:30 01/31/25 09:38 3 MG Fat Emulsion Intravenous 200 ml/Sodium Chloride 80 meq/ Sodium Phosphate 20 meq/Potassium Chloride 60 meq/ Potassium Phosphate 22 meq/ Calcium Gluconate 2.3 meq/Magnesium Sulfate 10 meq/ Multivitamins 10 ml/Chromium/ Copper/Manganese/ Zinc 1 ml/Insulin Human Regular 50 units/Amino Acids/ Dextrose 1,528.9462 ml @ 64 mls/hr [id number] IV 01/30/25 22:00 01/31/25 21:59 01/30/25 22:25 64 MLS/HR Fat Emulsion Intravenous 200 ml/Sodium Chloride 90 meq/ Sodium Phosphate 20 meq/Potassium Chloride 70 meq/ Potassium Phosphate 33 meq/ Magnesium Sulfate 10 meq/ Multivitamins 10 ml/Chromium/ Copper/Manganese/ Zinc 1 ml/Insulin Human Regular 47 units/Amino Acids/ Dextrose 1,533.97 ml @ 63 mls/hr [id number] IV 01/31/25 22:00 02/01/25 21:59 Fluconazole 100 ml @ 100 mls/hr Q1HR IV 01/31/25 13:00 01/31/25 14:59 UNV Fluconazole 100 ml @ 100 mls/hr 10,11 IV 02/01/25 10:00 UNV laboratory and microbiology Laboratory Tests 01/31/25 05:23 Test 01/31/25 05:23 Range/Units Serum Glucose 194 H 74-106 mg/dL Problem List/Assessment/Plan Problem List/Assessment/Plan 01/19/25 ASSUMING CARE FROM : PATIENT IS A MORBIDLY OBESE MALE WHO HAD A BARIATRIC OPERATION ( GASTRIC BYPASS?) 10 YEARS AGO WHICH LED TO A 100 LB LOSS. 4 DAYS AGO WAS ADMITTED WITH ABDOMINAL PAIN AND WAS FOUND TO HAVE PNEUMOPERITONEUM, THUS FAR HAS BEEN TREATED CONSERVATIVELY, A GASTROGRAFIN UGI X RAY SHOWS PERSISTENT LEAK FORM UPPER GI TRACT (PROBABLY GASTROENTERIC ANASTOMOSIS. HE REMAINS SYMPTOM FREE (PAIN STOPPED ABOUT 24 HOURS AGO), HE IS AFEBRILE, ABDOMEN IS OBESE, NON DISTENDED, NONTENDER, CONTINUE NON OPERATIVE TREATMENT, WITH NGT TO CONTINUOUS SUCTION, STRICT NPO, IV FLUIDS AND NUTRITION. OBSERVE FOR EVIDENCE OF SEPSIS . REPEAT CHEST/ABDOMEN CT SCAN WITH CONTRAST IN 72 HOURS. . 01/20/25 patient had a panic attack abdomen continues to be non tender, and non distended, patient "feels like is going to have a bowel movement" and thionks he is passing flatus. continue as is, 01/25/25 patient had 230 cc of pus drained by IR yesterday, feels better, abdomen is soft and nontender, patient having BM's. will wait another 48 hours and repeat Gastrografin UGI to see if leak sealed. 01/26/25 FEELS BETTER BUT HAS NOT BEEN AMBULATING. ABDOMEN NON TENDER. 01/30/25 clinically unchanged, awaiting UGI xray 01/31/25 somehow ugi x ray has been rescheduled twice, patient is understandably frustrated, abdomen is non tender, drainage non purulent, will wait for result, have ordered UGI with gastrografin to be done STAT today 01/31/25 PM :UGI shows no evidence of extravasation, will DC NGT and allow po clear liquids Plan discussed with: Patient Dietary Evaluation Review Comments: 1. Advance TPN to meet at least 75% estimated needs 2. Contineu current POC Expected Outcomes/Goals: To meet >75% estimated needs Fu 2-3 days JACK MAURICE MD Jan 31, 2025 14:00
[2025-01-31] MEDS: TPN PER PHARMACY IV NR (22:30)
[2025-02-01] VITALS (14 sets, daily range): BP systolic 110–154; BP diastolic 55–66; PULSE 57–68; RESP 17–22; TEMP 97.4–98; O2SAT 94–100
[2025-02-01 06:41] LABS: Alanine Aminotransferase 17 U/L (7-40); Alkaline Phosphatase 64 U/L (46-116); Anion Gap 6 (5-15); BUN/Creatinine Ratio 29.5 (10.0-20.0); Blood Urea Nitrogen 18 mg/dL (9-23); Sodium 138 mmol/L (136-145); Total Protein 6.5 g/dL (5.7-8.2)
[2025-02-01 06:42] LABS: Aspartate Aminotransferase 14 U/L (13-40)
[2025-02-01 06:43] LABS: Albumin 3.1 g/dL (3.2-4.8); Bilirubin, Total < 0.2 mg/dL (0.2-1.0); Calcium 8.5 mg/dL (8.7-10.4); Carbon Dioxide 35 mmol/L (20-31); Chloride 97 mmol/L (98-107); Glucose 240 mg/dL (74-106); Potassium 3.5 mmol/L (3.5-5.1)
[2025-02-01 07:09] LABS: Basophils # (auto) 0.1 10 ^3/uL (0-0.2); Basophils % (auto) 0.9 % (0.0-2.0); Eosinophils # (auto) 0.2 10 ^3/uL (0-0.8); Eosinophils % (auto) 2.4 % (0.0-7.0); Hematocrit 28.6 % (41.0-53.0); Hemoglobin 8.6 g/dL (13.5-17.5); Lymphocytes # (auto) 0.8 10 ^3/uL (0.4-5.4); Lymphocytes % (auto) 9.5 % (10.0-50.0); Mean Corpuscular Hemoglobin 21.8 pg (28.0-32.0); Mean Corpuscular Volume 72.7 fL (80.0-100.0); Monocytes # (auto) 0.8 10 ^3/uL (0-1.3); Monocytes % (auto) 9.4 % (0.0-12.0); Neutrophils # (auto) 6.2 10 ^3/uL (1.6-8.6); Neutrophils % (auto) 77.8 % (37.0-80.0); Nucleated Red Blood Cells % 0.2 %; Platelet Count (auto) 417 10^3/uL (140-450); Red Blood Cells 3.94 10^6/uL (4.5-5.90); Red Cell Distribution Width 18.2 % (11.8-14.3)
[2025-02-01] MEDS: FLUCONAZOLE 200MG/100ML 100 ML IV SCH (10:37)
--- NOTE | 2025-02-01 11:20 | DVHPN2 ---
Reviewed: Care Plan, H&P, Labs, Medications, Previous Orders, Radiology Changes from previous H/P or p: No Changes General: Per HPI Objective Vitals Vital Signs Date Time Temp Pulse Resp B/P (MAP) Pulse Ox O2 Delivery O2 Flow Rate FiO2 02/01/25 09:51 57 19 136/55 02/01/25 09:00 98.0 95 98.0 01/31/25 20:59 Nasal Cannula* 4 36 Intake/Output Intake and Output 02/01/25 07:00 Intake Total 800 ml Output Total 2075 ml Balance -1275 ml Intake Oral 300 ml IV Total 500 ml Output Urine Total 2075 ml # Bowel Movements 3 General Appearance: Alert, Oriented X3, No acute distress HEENT: Atraumatic, PERRLA, EOMI, Mucous membr. moist/pink Neck: Supple Lungs: Clear to auscultation, Normal air movement Cardiovascular: Regular rate, Normal S1, Normal S2, No murmurs, Gallops, Rubs Abdomen: Normal bowel sounds, Soft, No tenderness Neuro: Cranial nerves 3-12 NL Psych/Mental Status: Mental status NL Medications Current Medications Medications Dose Ordered Sig/Vincent Route Start Time Stop Time Status Last Admin Dose Admin Warfarin Sodium RX PROTOCOL PER PHARMACY PO 01/15/25 01:45 Cancel Albuterol 2.5 mg Q4HPRN PRN NEB 01/15/25 01:45 01/31/25 20:59 2.5 MG Ipratropium [place] 0.5 mg Q4HPRN PRN NEB 01/15/25 01:45 01/30/25 22:12 0.5 MG Acetaminophen/ Hydrocodone Bitart 1 tab Q4HP PRN PO 01/15/25 01:45 Hold 01/15/25 02:57 1 TAB Ondansetron HCl 4 mg Q4HP PRN IV 01/15/25 01:45 02/01/25 09:49 4 MG Docusate Sodium 100 mg BIDPRN PRN PO 01/15/25 01:45 Acetaminophen 650 mg Q6HP PRN PO 01/15/25 01:45 Nitroglycerin 0.4 mg Q5MINP PRN SL 01/15/25 01:45 Pantoprazole Sodium 40 mg BID IV 01/15/25 10:00 02/01/25 09:48 40 MG Amino Acids 0 ml @ 0 mls/hr PER PHARMACY IV 01/16/25 13:15 Sodium Chloride 10 ml QSHIFT@10,22 IV 01/16/25 22:00 02/01/25 10:03 10 ML Hydralazine HCl 10 mg Q6HP PRN IV 01/16/25 20:00 Lorazepam 0.5 mg Q6HP PRN IV 01/17/25 07:45 01/23/25 05:58 0.5 MG Diagnostic Test (Pha) 1 strip Q6HR 01/17/25 18:00 02/01/25 05:36 1 STRIP Insulin Human Regular FOLLOW SLIDING SCALE Q6HR SC 01/17/25 18:00 02/01/25 05:36 8 UNITS Dextrose 50 ml UD IV 01/17/25 18:00 Metoprolol Tartrate 2.5 mg Q6HPRN PRN IV 01/19/25 13:00 Doxycycline Hyclate 100 ml @ 50 mls/hr Q12H IV 01/25/25 13:00 02/01/25 00:48 50 MLS/HR Piperacillin Sod/ Tazobactam Sod 100 ml @ 25 mls/hr Q8H IV 01/25/25 15:00 02/01/25 06:32 25 MLS/HR Potassium Chloride 100 ml @ 50 mls/hr Q2H IV 01/26/25 17:30 01/26/25 21:29 UNV Morphine Sulfate 3 mg Q4HPRN PRN IV 01/27/25 16:30 02/01/25 09:51 3 MG Fat Emulsion Intravenous 200 ml/Sodium Chloride 90 meq/ Sodium Phosphate 20 meq/Potassium Chloride 70 meq/ Potassium Phosphate 33 meq/ Magnesium Sulfate 10 meq/ Multivitamins 10 ml/Chromium/ Copper/Manganese/ Zinc 1 ml/Insulin Human Regular 47 units/Amino Acids/ Dextrose 1,533.97 ml @ 63 mls/hr [id number] IV 01/31/25 22:00 02/01/25 21:59 01/31/25 22:30 63 MLS/HR Fluconazole 100 ml @ 100 mls/hr 10,11 IV 02/01/25 10:00 02/01/25 10:37 100 MLS/HR Fat Emulsion Intravenous 200 ml/Sodium Chloride 60 meq/ Sodium Phosphate 45 meq/Potassium Chloride 100 meq/ Magnesium Sulfate 14 meq/ Multivitamins 10 ml/Chromium/ Copper/Manganese/ Zinc 1 ml/Insulin Human Regular 47 units/Amino Acids/ Dextrose 1,491.22 ml @ 62 mls/hr Q24H4M IV 02/01/25 22:00 02/02/25 21:59 Laboratory Results Laboratory Tests 02/01/25 05:50 Chemistry Test 02/01/25 05:50 Albumin 3.1 g/dL (3.2-4.8) L Calcium Level 8.5 mg/dL (8.7-10.4) L Magnesium Level 2.0 mg/dL (1.6-2.6) Phosphorus Level 3.0 mg/dL (2.4-5.1) Total Protein 6.5 g/dL (5.7-8.2) LFT Test 02/01/25 05:50 Alanine Aminotransferase (ALT) 17 U/L (7-40) Alkaline Phosphatase 64 U/L (46-116) Aspartate Amino Transferase (AST) 14 U/L (13-40) Total Bilirubin < 0.2 mg/dL (0.2-1.0) L Urinalysis Test 01/15/25 01:59 Urine Color Light-yellow (Yellow) Urine Clarity Clear (Clear) Urine pH 6.0 (5.0-9.0) Urine Specific [place] 1.018 (1.001-1.035) Urine Protein Negative (Negative) Urine Ketones Negative (Negative) Urine Blood Negative /uL (Negative) Urine Nitrite Negative (Negative) Urine Bilirubin Negative (Negative) Urine Urobilinogen Normal mg/dL (Negative) Urine Leukocyte Esterase Negative /uL (Negative) Urine RBC <1 /hpf (0 - 3) Urine Microscopic WBC /HPF (0-3) Urine Squamous Epithelial Cells None seen /hpf (<5) Urine Bacteria None seen /hpf (None Seen) Urine Glucose 4+ mg/dL (Normal) H Microbiology Microbiology Date/Time Source Procedure Growth Status 01/25/25 09:35 Aspirate Gram Stain - Final Complete 01/25/25 09:35 Body Fluid Culture - Final Escherichia coli Presumptive Zenaida albicans Complete 01/15/25 00:28 Blood Blood Culture - Final NO GROWTH AFTER 5 DAYS OF INCUBATION. Complete Assessment/Plan Assessment/Plan Near syncope Intractable abdominal pain, continue Zosyn and doxycycline Perforated viscus and pneumoperitoneum, with history of gastric bypass, conservative management consult by Dr. Bird appreciated Left upper quadrant abscess status post drainage Lactic acidosis, resolved Sepsis due to above Acute respiratory distress Diabetes with hyperglycemia AFib on Coumadin Tachypnea Lipase elevated, mild Acute Hypokalemia: Replace potassium Nutrition TPN Time Spent 55 minutes Patient is full code NG tube removed Physical therapy ordered Plan discussed with: Patient My Orders Orders - PROMISE CASTANO MD Procedure Category Date Status Time Fluconazole PHA 02/01/25 In Process 200mg/100ml (Diflucan 10:00 Date of Service: Feb 01, 2025 Billing Provider: PROMISE CASTANO MD Common Visit Codes: [id number] INP/OBS CARE(HIGH) PROMISE CASTANO MD Feb 01, 2025 11:20
[2025-02-01] MEDS: POTASSIUM EFFERVESENT TAB 25 MEQ PO ONE (14:25)
--- NOTE | 2025-02-01 16:44 | DVH ---
CHEST RADIOGRAPH Indication: s.o.b. Technique: Single frontal view of the chest was obtained COMPARISON: None FINDINGS: Right PICC line tip projects over the SVC. The cardiac silhouette is enlarged. The lungs demonstrate bilateral patchy airspace opacities. The pu lmonary vasculature is prominent. Moderate left and small right pleural effusions. There is no pneumo thorax. IMPRESSION: 1. As above
[2025-02-01] MEDS: TPN PER PHARMACY IV NR (21:28)
[2025-02-02] VITALS (13 sets, daily range): BP systolic 125–156; BP diastolic 42–74; PULSE 54–74; RESP 16–23; TEMP 97.7–98.1; O2SAT 95–99
[2025-02-02 06:07] LABS: Potassium 4.5 mmol/L (3.5-5.1)
[2025-02-02 06:14] LABS: BUN/Creatinine Ratio 33.3 (10.0-20.0); Magnesium 1.9 mg/dL (1.6-2.6)
[2025-02-02 06:16] LABS: Phosphorus 2.8 mg/dL (2.4-5.1)
[2025-02-02 06:18] LABS: Albumin 2.8 g/dL (3.2-4.8)
[2025-02-02 06:36] LABS: Basophils # (auto) 0.1 10 ^3/uL (0-0.2); Basophils % (auto) 0.7 % (0.0-2.0); Eosinophils # (auto) 0.2 10 ^3/uL (0-0.8); Eosinophils % (auto) 2.2 % (0.0-7.0); Lymphocytes % (auto) 10.9 % (10.0-50.0); Mean Corpuscular Hemoglobin 21.9 pg (28.0-32.0); Mean Corpuscular Hgb Conc. 29.8 g/dL (32.0-36.0); Mean Corpuscular Volume 73.5 fL (80.0-100.0); Monocytes # (auto) 0.8 10 ^3/uL (0-1.3); Monocytes % (auto) 8.7 % (0.0-12.0); Neutrophils # (auto) 6.8 10 ^3/uL (1.6-8.6); Neutrophils % (auto) 77.5 % (37.0-80.0); Nucleated Red Blood Cells % 0.2 %; Platelet Count (auto) 425 10^3/uL (140-450); Red Blood Cells 3.67 10^6/uL (4.5-5.90); Red Cell Distribution Width 18.6 % (11.8-14.3); White Blood Cell 8.8 10^3/uL (4.4-10.8)
[2025-02-02 07:13] LABS: Hypochromia Moderate
[2025-02-02 07:14] LABS: Platelet Estimate Adequate
--- NOTE | 2025-02-02 11:05 | DVHPN2 ---
Reviewed: Care Plan, H&P, Labs, Medications, Previous Orders, Radiology Changes from previous H/P or p: No Changes General: Per HPI Objective Vitals Vital Signs Date Time Temp Pulse Resp B/P (MAP) Pulse Ox O2 Delivery O2 Flow Rate FiO2 02/02/25 09:56 62 18 137/61 02/02/25 09:13 98.0 98 98.0 02/02/25 08:07 Nasal Cannula* 4 36 Intake/Output Intake and Output 02/02/25 07:00 Intake Total 1560 ml Output Total 1975 ml Balance -415 ml Intake Oral 860 ml IV Total 700 ml Output Urine Total 1975 ml # Bowel Movements 1 General Appearance: Alert, Oriented X3, No acute distress HEENT: Atraumatic, PERRLA, EOMI, Mucous membr. moist/pink Neck: Supple Lungs: Clear to auscultation, Normal air movement Cardiovascular: Regular rate, Normal S1, Normal S2, No murmurs, Gallops, Rubs Abdomen: Normal bowel sounds, Soft, No tenderness Neuro: Cranial nerves 3-12 NL Psych/Mental Status: Mental status NL Medications Current Medications Medications Dose Ordered Sig/Vincent Route Start Time Stop Time Status Last Admin Dose Admin Warfarin Sodium RX PROTOCOL PER PHARMACY PO 01/15/25 01:45 Cancel Albuterol 2.5 mg Q4HPRN PRN NEB 01/15/25 01:45 02/01/25 23:14 2.5 MG Ipratropium [place] 0.5 mg Q4HPRN PRN NEB 01/15/25 01:45 02/01/25 22:20 0.5 MG Acetaminophen/ Hydrocodone Bitart 1 tab Q4HP PRN PO 01/15/25 01:45 Hold 01/15/25 02:57 1 TAB Ondansetron HCl 4 mg Q4HP PRN IV 01/15/25 01:45 02/02/25 09:54 4 MG Docusate Sodium 100 mg BIDPRN PRN PO 01/15/25 01:45 Acetaminophen 650 mg Q6HP PRN PO 01/15/25 01:45 Nitroglycerin 0.4 mg Q5MINP PRN SL 01/15/25 01:45 Pantoprazole Sodium 40 mg BID IV 01/15/25 10:00 02/02/25 09:54 40 MG Amino Acids 0 ml @ 0 mls/hr PER PHARMACY IV 01/16/25 13:15 Sodium Chloride 10 ml QSHIFT@10,22 IV 01/16/25 22:00 02/01/25 21:28 10 ML Hydralazine HCl 10 mg Q6HP PRN IV 01/16/25 20:00 Lorazepam 0.5 mg Q6HP PRN IV 01/17/25 07:45 01/23/25 05:58 0.5 MG Diagnostic Test (Pha) 1 strip Q6HR 01/17/25 18:00 02/02/25 06:09 1 STRIP Insulin Human Regular FOLLOW SLIDING SCALE Q6HR SC 01/17/25 18:00 02/02/25 06:10 4 UNITS Dextrose 50 ml UD IV 01/17/25 18:00 Metoprolol Tartrate 2.5 mg Q6HPRN PRN IV 01/19/25 13:00 Doxycycline Hyclate 100 ml @ 50 mls/hr Q12H IV 01/25/25 13:00 02/02/25 05:16 50 MLS/HR Piperacillin Sod/ Tazobactam Sod 100 ml @ 25 mls/hr Q8H IV 01/25/25 15:00 02/02/25 09:19 25 MLS/HR Potassium Chloride 100 ml @ 50 mls/hr Q2H IV 01/26/25 17:30 01/26/25 21:29 UNV Morphine Sulfate 3 mg Q4HPRN PRN IV 01/27/25 16:30 02/02/25 09:56 3 MG Fluconazole 100 ml @ 100 mls/hr 10,11 IV 02/01/25 10:00 02/02/25 09:53 100 MLS/HR Fat Emulsion Intravenous 200 ml/Sodium Chloride 60 meq/ Sodium Phosphate 45 meq/Potassium Chloride 100 meq/ Magnesium Sulfate 14 meq/ Multivitamins 10 ml/Chromium/ Copper/Manganese/ Zinc 1 ml/Insulin Human Regular 47 units/Amino Acids/ Dextrose 1,491.22 ml @ 62 mls/hr Q24H4M IV 02/01/25 22:00 02/02/25 21:59 02/01/25 21:28 62 MLS/HR Laboratory Results Laboratory Tests 02/02/25 05:07 Chemistry Test 02/02/25 05:07 Albumin 2.8 g/dL (3.2-4.8) L Calcium Level 8.0 mg/dL (8.7-10.4) L Magnesium Level 1.9 mg/dL (1.6-2.6) Phosphorus Level 2.8 mg/dL (2.4-5.1) Urinalysis Test 01/15/25 01:59 Urine Color Light-yellow (Yellow) Urine Clarity Clear (Clear) Urine pH 6.0 (5.0-9.0) Urine Specific [place] 1.018 (1.001-1.035) Urine Protein Negative (Negative) Urine Ketones Negative (Negative) Urine Blood Negative /uL (Negative) Urine Nitrite Negative (Negative) Urine Bilirubin Negative (Negative) Urine Urobilinogen Normal mg/dL (Negative) Urine Leukocyte Esterase Negative /uL (Negative) Urine RBC <1 /hpf (0 - 3) Urine Microscopic WBC /HPF (0-3) Urine Squamous Epithelial Cells None seen /hpf (<5) Urine Bacteria None seen /hpf (None Seen) Urine Glucose 4+ mg/dL (Normal) H Microbiology Microbiology Date/Time Source Procedure Growth Status 01/25/25 09:35 Aspirate Gram Stain - Final Complete 01/25/25 09:35 Body Fluid Culture - Final Escherichia coli Presumptive Zenaida albicans Complete 01/15/25 00:28 Blood Blood Culture - Final NO GROWTH AFTER 5 DAYS OF INCUBATION. Complete Labs and/or images reviewed: Labs reviewed by me, Image(s) reviewed by me Assessment/Plan Assessment/Plan Near syncope Intractable abdominal pain, continue Zosyn and doxycycline Perforated viscus and pneumoperitoneum, with history of gastric bypass, conservative management consult by Dr. Bird appreciated Left upper quadrant abscess status post drainage Lactic acidosis, resolved Zenaida in the abdominal abscess aspirate: Continue fluconazole Sepsis due to above Acute respiratory distress Diabetes with hyperglycemia AFib on Coumadin Tachypnea Lipase elevated, mild Acute Hypokalemia: Replace potassium Nutrition TPN Time Spent 55 minutes Patient is full code NG tube removed Physical therapy ordered Plan discussed with: Patient Date of Service: Feb 02, 2025 Billing Provider: PROMISE CASTANO MD Common Visit Codes: [id number] CARE 30-74 MIN PROMISE CASTANO MD Feb 02, 2025 11:05
--- NOTE | 2025-02-02 17:00 | DVHPN2 ---
Progress Note Date Seen: Feb 02, 2025 Medical Necessity Reason Pt with a Central, PICC or Fol: No Objective vital signs Vital Sign Date Time Temp Pulse Resp B/P (MAP) Pulse Ox O2 Delivery O2 Flow Rate FiO2 02/02/25 15:17 97.8 60 22 125/47 (73) 97 97.8 02/02/25 08:07 Nasal Cannula* 4 36 Total Intake and Output 02/01/25 02/01/25 02/02/25 15:00 23:00 07:00 Intake Total 300 ml 600 ml 660 ml Output Total 1000 ml 975 ml Balance 300 ml -400 ml -315 ml medications Current Medications Medications Dose Ordered Sig/Vincent Route Start Time Stop Time Status Last Admin Dose Admin Warfarin Sodium RX PROTOCOL PER PHARMACY PO 01/15/25 01:45 Cancel Albuterol 2.5 mg Q4HPRN PRN NEB 01/15/25 01:45 02/01/25 23:14 2.5 MG Ipratropium [place] 0.5 mg Q4HPRN PRN NEB 01/15/25 01:45 02/01/25 22:20 0.5 MG Acetaminophen/ Hydrocodone Bitart 1 tab Q4HP PRN PO 01/15/25 01:45 Hold 01/15/25 02:57 1 TAB Ondansetron HCl 4 mg Q4HP PRN IV 01/15/25 01:45 02/02/25 13:54 4 MG Docusate Sodium 100 mg BIDPRN PRN PO 01/15/25 01:45 Acetaminophen 650 mg Q6HP PRN PO 01/15/25 01:45 Nitroglycerin 0.4 mg Q5MINP PRN SL 01/15/25 01:45 Pantoprazole Sodium 40 mg BID IV 01/15/25 10:00 02/02/25 09:54 40 MG Amino Acids 0 ml @ 0 mls/hr PER PHARMACY IV 01/16/25 13:15 Sodium Chloride 10 ml QSHIFT@,22 IV 01/16/25 22:00 02/02/25 10:00 10 ML Hydralazine HCl 10 mg Q6HP PRN IV 01/16/25 20:00 Lorazepam 0.5 mg Q6HP PRN IV 01/17/25 07:45 01/23/25 05:58 0.5 MG Diagnostic Test (Pha) 1 strip Q6HR 01/17/25 18:00 02/02/25 12:00 1 STRIP Insulin Human Regular FOLLOW SLIDING SCALE Q6HR SC 01/17/25 18:00 02/02/25 12:27 4 UNITS Dextrose 50 ml UD IV 01/17/25 18:00 Metoprolol Tartrate 2.5 mg Q6HPRN PRN IV 01/19/25 13:00 Doxycycline Hyclate 100 ml @ 50 mls/hr Q12H IV 01/25/25 13:00 02/02/25 13:55 50 MLS/HR Piperacillin Sod/ Tazobactam Sod 100 ml @ 25 mls/hr Q8H IV 01/25/25 15:00 02/02/25 09:19 25 MLS/HR Potassium Chloride 100 ml @ 50 mls/hr Q2H IV 01/26/25 17:30 01/26/25 21:29 UNV Morphine Sulfate 3 mg Q4HPRN PRN IV 01/27/25 16:30 02/02/25 13:54 3 MG Fluconazole 100 ml @ 100 mls/hr 10,11 IV 02/01/25 10:00 02/02/25 11:00 100 MLS/HR Fat Emulsion Intravenous 200 ml/Sodium Chloride 60 meq/ Sodium Phosphate 45 meq/Potassium Chloride 100 meq/ Magnesium Sulfate 14 meq/ Multivitamins 10 ml/Chromium/ Copper/Manganese/ Zinc 1 ml/Insulin Human Regular 47 units/Amino Acids/ Dextrose 1,491.22 ml @ 62 mls/hr Q24H4M IV 02/01/25 22:00 02/02/25 21:59 02/01/25 21:28 62 MLS/HR Fat Emulsion Intravenous 200 ml/Sodium Chloride 50 meq/ Sodium Phosphate 50 meq/Calcium Gluconate 4.65 meq/Magnesium Sulfate 16 meq/ Multivitamins 10 ml/Chromium/ Copper/Manganese/ Zinc 1 ml/Insulin Human Regular 47 units/Amino Acids/ Dextrose 1,450.47 ml @ 60 mls/hr [id number] IV 02/02/25 22:00 02/03/25 21:59 laboratory and microbiology Laboratory Tests 02/02/25 05:07 Test 02/02/25 05:07 Range/Units Serum Glucose 171 H 74-106 mg/dL Problem List/Assessment/Plan Problem List/Assessment/Plan 01/19/25 ASSUMING CARE FROM : PATIENT IS A MORBIDLY OBESE MALE WHO HAD A BARIATRIC OPERATION ( GASTRIC BYPASS?) 10 YEARS AGO WHICH LED TO A 100 LB LOSS. 4 DAYS AGO WAS ADMITTED WITH ABDOMINAL PAIN AND WAS FOUND TO HAVE PNEUMOPERITONEUM, THUS FAR HAS BEEN TREATED CONSERVATIVELY, A GASTROGRAFIN UGI X RAY SHOWS PERSISTENT LEAK FORM UPPER GI TRACT (PROBABLY GASTROENTERIC ANASTOMOSIS. HE REMAINS SYMPTOM FREE (PAIN STOPPED ABOUT 24 HOURS AGO), HE IS AFEBRILE, ABDOMEN IS OBESE, NON DISTENDED, NONTENDER, CONTINUE NON OPERATIVE TREATMENT, WITH NGT TO CONTINUOUS SUCTION, STRICT NPO, IV FLUIDS AND NUTRITION. OBSERVE FOR EVIDENCE OF SEPSIS . REPEAT CHEST/ABDOMEN CT SCAN WITH CONTRAST IN 72 HOURS. . 01/20/25 patient had a panic attack abdomen continues to be non tender, and non distended, patient "feels like is going to have a bowel movement" and thionks he is passing flatus. continue as is, 01/25/25 patient had 230 cc of pus drained by IR yesterday, feels better, abdomen is soft and nontender, patient having BM's. will wait another 48 hours and repeat Gastrografin UGI to see if leak sealed. 01/26/25 FEELS BETTER BUT HAS NOT BEEN AMBULATING. ABDOMEN NON TENDER. 01/30/25 clinically unchanged, awaiting UGI xray 01/31/25 somehow ugi x ray has been rescheduled twice, patient is understandably frustrated, abdomen is non tender, drainage non purulent, will wait for result, have ordered UGI with gastrografin to be done STAT today 01/31/25 PM :UGI shows no evidence of extravasation, will DC NGT and allow po clear liquids 02/02/25,IMPROVING, NO PROBLEMS SWALLOWING, ABDOMEN NONTENDER. i WILL SIGN OFF, PLEASE RECALL IF NEEDED Plan discussed with: Patient Dietary Evaluation Review Comments: 1. Advance TPN to meet at least 75% estimated needs 2. Contineu current POC Expected Outcomes/Goals: To meet >75% estimated needs Fu 2-3 days JACK MAURICE MD Feb 02, 2025 17:00
[2025-02-02] MEDS: TPN PER PHARMACY IV NR (21:46)
[2025-02-03] VITALS (21 sets, daily range): BP systolic 116–151; BP diastolic 62–73; PULSE 55–76; RESP 17–20; TEMP 96.4–98.2; O2SAT 94–100
[2025-02-03] MEDS: ALBUTEROL SULF 2.5 MG/0.5ML(0.5%) NEB SOLN NEB SCH (05:02)
[2025-02-03] MEDS: IPRATROPIUM BROM 0.5 MG/2.5ML INH SOL NEB SCH (05:02)
[2025-02-03 06:55] LABS: Basophils # (auto) 0 10 ^3/uL (0-0.2); Basophils % (auto) 0.6 % (0.0-2.0); Eosinophils # (auto) 0.2 10 ^3/uL (0-0.8); Eosinophils % (auto) 2.3 % (0.0-7.0); Hematocrit 25.7 % (41.0-53.0); Hemoglobin 7.7 g/dL (13.5-17.5); Lymphocytes # (auto) 0.7 10 ^3/uL (0.4-5.4); Lymphocytes % (auto) 9.7 % (10.0-50.0); Mean Corpuscular Hgb Conc. 29.9 g/dL (32.0-36.0); Mean Corpuscular Volume 73.4 fL (80.0-100.0); Monocytes # (auto) 0.7 10 ^3/uL (0-1.3); Monocytes % (auto) 9.5 % (0.0-12.0); Neutrophils # (auto) 5.9 10 ^3/uL (1.6-8.6); Neutrophils % (auto) 77.9 % (37.0-80.0); Nucleated Red Blood Cells % 0.2 %; Platelet Count (auto) 443 10^3/uL (140-450); Red Blood Cells 3.49 10^6/uL (4.5-5.90); Red Cell Distribution Width 18.5 % (11.8-14.3); White Blood Cell 7.5 10^3/uL (4.4-10.8)
[2025-02-03 07:15] LABS: Alanine Aminotransferase 16 U/L (7-40); Alkaline Phosphatase 65 U/L (46-116); Blood Urea Nitrogen 17 mg/dL (9-23); Calcium 9.2 mg/dL (8.7-10.4); Chloride 98 mmol/L (98-107); Phosphorus 3.1 mg/dL (2.4-5.1); Potassium 4.4 mmol/L (3.5-5.1); Sodium 140 mmol/L (136-145); Total Protein 6.4 g/dL (5.7-8.2)
[2025-02-03 07:23] LABS: Anion Gap 1.99999 (5-15); Aspartate Aminotransferase 13 U/L (13-40); Bilirubin, Total < 0.2 mg/dL (0.2-1.0); Glucose 173 mg/dL (74-106)
[2025-02-03 07:28] LABS: Carbon Dioxide > 40 mmol/L (20-31)
--- NOTE | 2025-02-03 12:10 | DVHPN2 ---
Reviewed: Care Plan, H&P, Labs, Medications, Previous Orders, Radiology Changes from previous H/P or p: No Changes General: Per HPI Objective Vitals Vital Signs Date Time Temp Pulse Resp B/P (MAP) Pulse Ox O2 Delivery O2 Flow Rate FiO2 02/03/25 10:07 58 20 99 02/03/25 09:00 98.0 124/73 (90) 98.0 02/03/25 08:06 Nasal Cannula* 4 36 Intake/Output Intake and Output 02/03/25 07:00 Intake Total 949.92 ml Output Total 1900 ml Balance -950.08 ml Intake Oral 250 ml IV Total 699.92 ml Output Urine Total 1900 ml General Appearance: Alert, Oriented X3, No acute distress HEENT: Atraumatic, PERRLA, EOMI, Mucous membr. moist/pink Neck: Supple Lungs: Clear to auscultation, Normal air movement Cardiovascular: Regular rate, Normal S1, Normal S2, No murmurs, Gallops, Rubs Abdomen: Normal bowel sounds, Soft, No tenderness Neuro: Cranial nerves 3-12 NL Psych/Mental Status: Mental status NL Medications Current Medications Medications Dose Ordered Sig/Vincent Route Start Time Stop Time Status Last Admin Dose Admin Warfarin Sodium RX PROTOCOL PER PHARMACY PO 01/15/25 01:45 Cancel Acetaminophen/ Hydrocodone Bitart 1 tab Q4HP PRN PO 01/15/25 01:45 Hold 01/15/25 02:57 1 TAB Ondansetron HCl 4 mg Q4HP PRN IV 01/15/25 01:45 02/03/25 07:53 4 MG Docusate Sodium 100 mg BIDPRN PRN PO 01/15/25 01:45 Acetaminophen 650 mg Q6HP PRN PO 01/15/25 01:45 Nitroglycerin 0.4 mg Q5MINP PRN SL 01/15/25 01:45 Pantoprazole Sodium 40 mg BID IV 01/15/25 10:00 02/03/25 09:56 40 MG Amino Acids 0 ml @ 0 mls/hr PER PHARMACY IV 01/16/25 13:15 Sodium Chloride 10 ml QSHIFT@10,22 IV 01/16/25 22:00 02/02/25 21:59 10 ML Hydralazine HCl 10 mg Q6HP PRN IV 01/16/25 20:00 Lorazepam 0.5 mg Q6HP PRN IV 01/17/25 07:45 01/23/25 05:58 0.5 MG Diagnostic Test (Pha) 1 strip Q6HR 01/17/25 18:00 02/03/25 05:43 1 STRIP Insulin Human Regular FOLLOW SLIDING SCALE Q6HR SC 01/17/25 18:00 02/03/25 05:57 4 UNITS Dextrose 50 ml UD IV 01/17/25 18:00 Metoprolol Tartrate 2.5 mg Q6HPRN PRN IV 01/19/25 13:00 Doxycycline Hyclate 100 ml @ 50 mls/hr Q12H IV 01/25/25 13:00 02/03/25 00:09 50 MLS/HR Piperacillin Sod/ Tazobactam Sod 100 ml @ 25 mls/hr Q8H IV 01/25/25 15:00 02/03/25 05:43 25 MLS/HR Potassium Chloride 100 ml @ 50 mls/hr Q2H IV 01/26/25 17:30 01/26/25 21:29 UNV Morphine Sulfate 3 mg Q4HPRN PRN IV 01/27/25 16:30 02/03/25 07:54 3 MG Fluconazole 100 ml @ 100 mls/hr 10,11 IV 02/01/25 10:00 02/03/25 09:56 100 MLS/HR Fat Emulsion Intravenous 200 ml/Sodium Chloride 50 meq/ Sodium Phosphate 50 meq/Calcium Gluconate 4.65 meq/Magnesium Sulfate 16 meq/ Multivitamins 10 ml/Chromium/ Copper/Manganese/ Zinc 1 ml/Insulin Human Regular 47 units/Amino Acids/ Dextrose 1,450.47 ml @ 60 mls/hr [id number] IV 02/02/25 22:00 02/03/25 21:59 02/02/25 21:46 60 MLS/HR Albuterol 2.5 mg Q4HR NEB 02/03/25 06:00 02/03/25 10:06 2.5 MG Ipratropium [place] 0.5 mg Q4HR NEB 02/03/25 06:00 02/03/25 10:06 0.5 MG Fat Emulsion Intravenous 200 ml/Sodium Chloride 60 meq/ Sodium Phosphate 20 meq/Magnesium Sulfate 14 meq/ Chromium/Copper/ Manganese/Zinc 1 ml/Insulin Human Regular 47 units/ Multivitamins 10 ml/Amino Acids/ Dextrose 1,434.97 ml @ 59 mls/hr [id number] IV 02/03/25 22:00 02/04/25 21:59 Laboratory Results Laboratory Tests 02/03/25 06:00 Chemistry Test 02/03/25 06:00 Albumin 3.0 g/dL (3.2-4.8) L Calcium Level 9.2 mg/dL (8.7-10.4) Magnesium Level 2.0 mg/dL (1.6-2.6) Phosphorus Level 3.1 mg/dL (2.4-5.1) Total Protein 6.4 g/dL (5.7-8.2) LFT Test 02/03/25 06:00 Alanine Aminotransferase (ALT) 16 U/L (7-40) Alkaline Phosphatase 65 U/L (46-116) Aspartate Amino Transferase (AST) 13 U/L (13-40) Total Bilirubin < 0.2 mg/dL (0.2-1.0) L Urinalysis Test 01/15/25 01:59 Urine Color Light-yellow (Yellow) Urine Clarity Clear (Clear) Urine pH 6.0 (5.0-9.0) Urine Specific [place] 1.018 (1.001-1.035) Urine Protein Negative (Negative) Urine Ketones Negative (Negative) Urine Blood Negative /uL (Negative) Urine Nitrite Negative (Negative) Urine Bilirubin Negative (Negative) Urine Urobilinogen Normal mg/dL (Negative) Urine Leukocyte Esterase Negative /uL (Negative) Urine RBC <1 /hpf (0 - 3) Urine Microscopic WBC /HPF (0-3) Urine Squamous Epithelial Cells None seen /hpf (<5) Urine Bacteria None seen /hpf (None Seen) Urine Glucose 4+ mg/dL (Normal) H Microbiology Microbiology Date/Time Source Procedure Growth Status 01/25/25 09:35 Aspirate Gram Stain - Final Complete 01/25/25 09:35 Body Fluid Culture - Final Escherichia coli Presumptive Zenaida albicans Complete 01/15/25 00:28 Blood Blood Culture - Final NO GROWTH AFTER 5 DAYS OF INCUBATION. Complete Labs and/or images reviewed: Labs reviewed by me, Image(s) reviewed by me Assessment/Plan Assessment/Plan Near syncope Intractable abdominal pain, continue Zosyn and doxycycline Perforated viscus and pneumoperitoneum, with history of gastric bypass, conservative management consult by Dr. Bird appreciated Left upper quadrant abscess status post drainage Lactic acidosis, resolved Zenaida in the abdominal abscess aspirate: Continue fluconazole Sepsis due to above Acute respiratory distress Diabetes with hyperglycemia AFib on Coumadin Tachypnea Lipase elevated, mild Acute Hypokalemia: Replace potassium Nutrition TPN Time Spent 55 minutes Patient is full code NG tube removed Patient on soft diet Physical therapy ordered Plan discussed with: Patient My Orders Orders - PROMISE CASTANO MD Procedure Category Date Status Time Pt Request For Service PT 02/03/25 Verified 12:07 Date of Service: Feb 03, 2025 Billing Provider: PROMISE CASTANO MD Common Visit Codes: [id number] INP/OBS CARE(HIGH) PROMISE CASTANO MD Feb 03, 2025 12:10
[2025-02-03] MEDS: TPN PER PHARMACY IV NR (22:07)
[2025-02-04] VITALS (19 sets, daily range): BP systolic 136–186; BP diastolic 48–79; PULSE 58–77; RESP 18–22; TEMP 96.6–97.6; O2SAT 90–100
[2025-02-04 08:43] LABS: Alanine Aminotransferase 15 U/L (7-40); Albumin 3.1 g/dL (3.2-4.8); Alkaline Phosphatase 66 U/L (46-116); Anion Gap 4 (5-15); Aspartate Aminotransferase 15 U/L (13-40); Blood Urea Nitrogen 13 mg/dL (9-23); Calcium 8.9 mg/dL (8.7-10.4); Carbon Dioxide 38 mmol/L (20-31); Chloride 96 mmol/L (98-107); Glucose 141 mg/dL (74-106); Magnesium 2.1 mg/dL (1.6-2.6); Potassium 3.8 mmol/L (3.5-5.1); Sodium 138 mmol/L (136-145); Total Protein 6.7 g/dL (5.7-8.2)
[2025-02-04 08:44] LABS: Bilirubin, Total 0.2 mg/dL (0.2-1.0); Phosphorus 2.7 mg/dL (2.4-5.1)
[2025-02-04] MEDS ORDERED: IPRATROPIUM BROM 0.5 MG/2.5ML INH SOL NEB PRN (12:00)
[2025-02-04] MEDS ORDERED: ALBUTEROL SULF 2.5 MG/0.5ML(0.5%) NEB SOLN NEB PRN (12:00)
[2025-02-04] MEDS: MEGESTROL ACETATE 20 MG TAB PO SCH (14:00)
[2025-02-04 20:54] LABS: Basophils # (auto) 0 10 ^3/uL (0-0.2); Lymphocytes # (auto) 0.6 10 ^3/uL (0.4-5.4); Mean Corpuscular Hemoglobin 22.5 pg (28.0-32.0); Monocytes # (auto) 0.5 10 ^3/uL (0-1.3); Red Cell Distribution Width 18.9 % (11.8-14.3)
[2025-02-04 20:55] LABS: Basophils % (auto) 0.6 % (0.0-2.0); Eosinophils # (auto) 0.2 10 ^3/uL (0-0.8); Eosinophils % (auto) 2.8 % (0.0-7.0); Hematocrit 30.6 % (41.0-53.0); Hemoglobin 9.3 g/dL (13.5-17.5); Lymphocytes % (auto) 7.6 % (10.0-50.0); Mean Corpuscular Hgb Conc. 30.3 g/dL (32.0-36.0); Mean Corpuscular Volume 74.1 fL (80.0-100.0); Monocytes % (auto) 6.3 % (0.0-12.0); Neutrophils % (auto) 82.7 % (37.0-80.0); Nucleated Red Blood Cells % 0.4 %; Platelet Count (auto) 418 10^3/uL (140-450); Red Blood Cells 4.13 10^6/uL (4.5-5.90); White Blood Cell 8.4 10^3/uL (4.4-10.8)
[2025-02-04] MEDS: TPN PER PHARMACY IV NR (22:19)
[2025-02-05] VITALS (23 sets, daily range): BP systolic 126–156; BP diastolic 51–74; PULSE 57–83; RESP 16–20; TEMP 97.1–98.5; O2SAT 90–100
[2025-02-05] MEDS: FUROSEMIDE 40 MG/4 ML VIAL IV ONE (00:58)
[2025-02-05 05:36] LABS: Alanine Aminotransferase 15 U/L (7-40); Alkaline Phosphatase 71 U/L (46-116); BUN/Creatinine Ratio 29.5 (10.0-20.0); Blood Urea Nitrogen 18 mg/dL (9-23); Calcium 9.1 mg/dL (8.7-10.4); Magnesium 1.8 mg/dL (1.6-2.6); Potassium 3.8 mmol/L (3.5-5.1); Sodium 140 mmol/L (136-145); Total Protein 6.6 g/dL (5.7-8.2); Triglycerides 92 mg/dL (< 150)
[2025-02-05 05:42] LABS: Albumin 3.1 g/dL (3.2-4.8); Anion Gap 6.99999 (5-15); Aspartate Aminotransferase 12 U/L (13-40); Bilirubin, Total 0.2 mg/dL (0.2-1.0); Chloride 93 mmol/L (98-107); Glucose 165 mg/dL (74-106)
[2025-02-05 05:44] LABS: Carbon Dioxide > 40 mmol/L (20-31)
--- NOTE | 2025-02-05 11:46 | DVHPN2 ---
Reviewed: Care Plan, H&P, Labs, Medications, Previous Orders, Radiology Changes from previous H/P or p: No Changes General: Per HPI Objective Vitals Vital Signs Date Time Temp Pulse Resp B/P (MAP) Pulse Ox O2 Delivery O2 Flow Rate FiO2 02/05/25 09:29 67 16 96 02/05/25 09:21 118/78 02/05/25 09:03 97.2 97.2 02/05/25 08:00 Nasal Cannula* 4 36 Intake/Output Intake and Output 02/05/25 07:00 Intake Total 2684.26 ml Output Total 4200 ml Balance -1515.74 ml Intake Oral 1474 ml IV Total 1210.26 ml Output Urine Total 4200 ml # Bowel Movements 1 General Appearance: Alert, Oriented X3, No acute distress HEENT: Atraumatic, PERRLA, EOMI, Mucous membr. moist/pink Neck: Supple Lungs: Clear to auscultation, Normal air movement Cardiovascular: Regular rate, Normal S1, Normal S2, No murmurs, Gallops, Rubs Abdomen: Normal bowel sounds, Soft, No tenderness Neuro: Cranial nerves 3-12 NL Psych/Mental Status: Mental status NL Medications Current Medications Medications Dose Ordered Sig/Vincent Route Start Time Stop Time Status Last Admin Dose Admin Warfarin Sodium RX PROTOCOL PER PHARMACY PO 01/15/25 01:45 Cancel Acetaminophen/ Hydrocodone Bitart 1 tab Q4HP PRN PO 01/15/25 01:45 Hold 01/15/25 02:57 1 TAB Ondansetron HCl 4 mg Q4HP PRN IV 01/15/25 01:45 02/05/25 09:21 4 MG Docusate Sodium 100 mg BIDPRN PRN PO 01/15/25 01:45 Acetaminophen 650 mg Q6HP PRN PO 01/15/25 01:45 Nitroglycerin 0.4 mg Q5MINP PRN SL 01/15/25 01:45 Pantoprazole Sodium 40 mg BID IV 01/15/25 10:00 02/05/25 09:20 40 MG Amino Acids 0 ml @ 0 mls/hr PER PHARMACY IV 01/16/25 13:15 Sodium Chloride 10 ml QSHIFT@10,22 IV 01/16/25 22:00 02/05/25 09:21 10 ML Hydralazine HCl 10 mg Q6HP PRN IV 01/16/25 20:00 Lorazepam 0.5 mg Q6HP PRN IV 01/17/25 07:45 02/04/25 22:23 0.5 MG Diagnostic Test (Pha) 1 strip Q6HR 01/17/25 18:00 02/05/25 06:14 1 STRIP Insulin Human Regular FOLLOW SLIDING SCALE Q6HR SC 01/17/25 18:00 02/05/25 06:14 4 UNITS Dextrose 50 ml UD IV 01/17/25 18:00 Metoprolol Tartrate 2.5 mg Q6HPRN PRN IV 01/19/25 13:00 Doxycycline Hyclate 100 ml @ 50 mls/hr Q12H IV 01/25/25 13:00 02/05/25 02:17 50 MLS/HR Piperacillin Sod/ Tazobactam Sod 100 ml @ 25 mls/hr Q8H IV 01/25/25 15:00 02/05/25 06:13 25 MLS/HR Potassium Chloride 100 ml @ 50 mls/hr Q2H IV 01/26/25 17:30 01/26/25 21:29 UNV Morphine Sulfate 3 mg Q4HPRN PRN IV 01/27/25 16:30 02/05/25 09:21 3 MG Fluconazole 100 ml @ 100 mls/hr 10,11 IV 02/01/25 10:00 02/05/25 09:20 100 MLS/HR Albuterol 2.5 mg Q4HR NEB 02/03/25 06:00 02/05/25 09:24 2.5 MG Ipratropium [place] 0.5 mg Q4HR NEB 02/03/25 06:00 02/05/25 09:24 0.5 MG Fat Emulsion Intravenous 200 ml/Sodium Chloride 80 meq/ Sodium Phosphate 20 meq/Potassium Chloride 40 meq/ Potassium Phosphate 22 meq/ Magnesium Sulfate 12 meq/ Multivitamins 10 ml/Chromium/ Copper/Manganese/ Zinc 1 ml/Insulin Human Regular 47 units/Amino Acids/ Dextrose 1,464.47 ml @ 61 mls/hr Q24H1M IV 02/04/25 22:00 02/05/25 21:59 02/04/25 22:19 61 MLS/HR Megestrol Acetate 20 mg TID PO 02/04/25 14:00 Hold 02/04/25 14:00 20 MG Albuterol 2.5 mg Q2HPRN PRN NEB 02/04/25 12:00 Ipratropium [place] 0.5 mg Q2HPRN PRN NEB 02/04/25 12:00 Fat Emulsion Intravenous 200 ml/Sodium Chloride 80 meq/ Sodium Phosphate 20 meq/Potassium Chloride 60 meq/ Magnesium Sulfate 16 meq/ Multivitamins 10 ml/Chromium/ Copper/Manganese/ Zinc 1 ml/Insulin Human Regular 49 units/Amino Acids/ Dextrose 1,620.49 ml @ 67 mls/hr [id number] IV 02/05/25 22:00 02/06/25 21:59 Laboratory Results Laboratory Tests 02/04/25 08:10 02/05/25 04:40 Chemistry Test 02/05/25 04:40 Albumin 3.1 g/dL (3.2-4.8) L Calcium Level 9.1 mg/dL (8.7-10.4) Magnesium Level 1.8 mg/dL (1.6-2.6) Phosphorus Level 3.0 mg/dL (2.4-5.1) Total Protein 6.6 g/dL (5.7-8.2) Lipid panel Test 02/05/25 04:40 Triglycerides Level 92 mg/dL (< 150) LFT Test 02/05/25 04:40 Alanine Aminotransferase (ALT) 15 U/L (7-40) Alkaline Phosphatase 71 U/L (46-116) Aspartate Amino Transferase (AST) 12 U/L (13-40) L Total Bilirubin 0.2 mg/dL (0.2-1.0) Urinalysis Test 01/15/25 01:59 Urine Color Light-yellow (Yellow) Urine Clarity Clear (Clear) Urine pH 6.0 (5.0-9.0) Urine Specific [place] 1.018 (1.001-1.035) Urine Protein Negative (Negative) Urine Ketones Negative (Negative) Urine Blood Negative /uL (Negative) Urine Nitrite Negative (Negative) Urine Bilirubin Negative (Negative) Urine Urobilinogen Normal mg/dL (Negative) Urine Leukocyte Esterase Negative /uL (Negative) Urine RBC <1 /hpf (0 - 3) Urine Microscopic WBC /HPF (0-3) Urine Squamous Epithelial Cells None seen /hpf (<5) Urine Bacteria None seen /hpf (None Seen) Urine Glucose 4+ mg/dL (Normal) H Microbiology Microbiology Date/Time Source Procedure Growth Status 01/25/25 09:35 Aspirate Gram Stain - Final Complete 01/25/25 09:35 Body Fluid Culture - Final Escherichia coli Presumptive Zenaida albicans Complete 01/15/25 00:28 Blood Blood Culture - Final NO GROWTH AFTER 5 DAYS OF INCUBATION. Complete Labs and/or images reviewed: Labs reviewed by me, Image(s) reviewed by me Assessment/Plan Assessment/Plan Acute hypoxic respiratory failure: Oxygen by nasal cannula, chest x-ray, consult for Dr. Morrissey Intractable abdominal pain, continue Zosyn and doxycycline Perforated viscus and pneumoperitoneum, with history of gastric bypass, conservative management consult by Dr. Bird appreciated Left upper quadrant abscess status post drainage Lactic acidosis, resolved Zenaida in the abdominal abscess aspirate: Continue fluconazole Sepsis due to above Acute respiratory distress Diabetes with hyperglycemia AFib on Coumadin Tachypnea Acute hypokalemia: Replace potassium Lipase elevated, mild Nutrition TPN Time Spent 55 minutes Patient is full code NG tube removed Patient on soft diet Physical therapy ordered Plan discussed with: Patient My Orders Orders - PROMISE CASTANO MD Procedure Category Date Status Time Megestrol Tablet PHA 02/04/25 In Process (Megace Tablet) 14:00 Albuterol Medneb PHA 02/04/25 In Process (Ventolin Medneb) 12:00 Ipratropium Medneb PHA 02/04/25 In Process (Atrovent Medneb) 12:00 Date of Service: Feb 05, 2025 Billing Provider: PROMISE CASTANO MD Common Visit Codes: [id number] CARE 30-74 MIN PROMISE CASTANO MD Feb 05, 2025 11:46
[2025-02-05] MEDS: MEGESTROL ACET 400MG/10ML ORAL SUSP PO SCH (12:00)
[2025-02-05] MEDS ORDERED: IPRATROPIUM BROM 0.5 MG/2.5ML INH SOL NEB SCH (14:00)
--- NOTE | 2025-02-05 14:19 | DVH ---
US CHEST ULTRASOUND, HISTORY: eval if pleural effusion b/l COMPARISON(S): None TECHNICAL DATA: Transverse and longitudinal images are obtained of the chest. FINDING: IMPRESSION(S): Trace bilateral pleural effusion.
--- NOTE | 2025-02-05 16:21 | DVH ---
EXAM: XY CHEST XRAY 1 VIEW TECHNIQUE: Single frontal chest radiograph CLINICAL HISTORY: Shortness of breath COMPARISON: XY CHEST PORTABLE on DOS: 02/01/25, XY CHEST PORTABLE on DOS: 01/22/25, XY CHEST PORTABLE on DOS: 01/21/25 Findings/Impression: Frontal chest radiograph demonstrates no acute osseous or superficial soft tissue abnormalities. Right upper extremity PICC terminates in the superior cavoatrial junction. The trachea is midline. Cardiomegaly with pulmonary edema, worse from prior. Small left pleural effusion and/or atelectasis. A superimposed infectious process is not excluded. No pneumothorax.
--- NOTE | 2025-02-05 17:07 | DVHPN2 ---
Consult Progress Note Subjective Other Systems: The patient is in normal sinus rhythm with first-degree AV block on cardiac monitor technician Objective vital signs Vital Sign Date Time Temp Pulse Resp B/P (MAP) Pulse Ox O2 Delivery O2 Flow Rate FiO2 02/05/25 16:38 97.3 74 19 128/56 (80) 94 97.3 02/05/25 08:00 Nasal Cannula* 4 36 Total Intake and Output 02/04/25 02/04/25 02/05/25 15:00 23:00 07:00 Intake Total 620 ml 698.30 ml 1365.96 ml Output Total 900 ml 3300 ml Balance 620 ml -201.70 ml -1934.04 ml medications Current Medications Medications Dose Ordered Sig/Vincent Route Start Time Stop Time Status Last Admin Dose Admin Warfarin Sodium RX PROTOCOL PER PHARMACY PO 01/15/25 01:45 Cancel Acetaminophen/ Hydrocodone Bitart 1 tab Q4HP PRN PO 01/15/25 01:45 Hold 02/05/25 13:54 1 TAB Ondansetron HCl 4 mg Q4HP PRN IV 01/15/25 01:45 02/05/25 09:21 4 MG Docusate Sodium 100 mg BIDPRN PRN PO 01/15/25 01:45 Acetaminophen 650 mg Q6HP PRN PO 01/15/25 01:45 Nitroglycerin 0.4 mg Q5MINP PRN SL 01/15/25 01:45 Pantoprazole Sodium 40 mg BID IV 01/15/25 10:00 02/05/25 09:20 40 MG Amino Acids 0 ml @ 0 mls/hr PER PHARMACY IV 01/16/25 13:15 Sodium Chloride 10 ml QSHIFT@10,22 IV 01/16/25 22:00 02/05/25 09:21 10 ML Hydralazine HCl 10 mg Q6HP PRN IV 01/16/25 20:00 Lorazepam 0.5 mg Q6HP PRN IV 01/17/25 07:45 02/05/25 15:38 0.5 MG Diagnostic Test (Pha) 1 strip Q6HR 01/17/25 18:00 02/05/25 12:16 1 STRIP Insulin Human Regular FOLLOW SLIDING SCALE Q6HR SC 01/17/25 18:00 02/05/25 12:20 4 UNITS Dextrose 50 ml UD IV 01/17/25 18:00 Metoprolol Tartrate 2.5 mg Q6HPRN PRN IV 01/19/25 13:00 Piperacillin Sod/ Tazobactam Sod 100 ml @ 25 mls/hr Q8H IV 01/25/25 15:00 02/05/25 15:21 25 MLS/HR Potassium Chloride 100 ml @ 50 mls/hr Q2H IV 01/26/25 17:30 01/26/25 21:29 UNV Fluconazole 100 ml @ 100 mls/hr 10,11 IV 02/01/25 10:00 02/05/25 11:00 100 MLS/HR Albuterol 2.5 mg Q4HR NEB 02/03/25 06:00 02/05/25 14:06 2.5 MG Ipratropium [place] 0.5 mg Q4HR NEB 02/03/25 06:00 02/05/25 14:06 0.5 MG Fat Emulsion Intravenous 200 ml/Sodium Chloride 80 meq/ Sodium Phosphate 20 meq/Potassium Chloride 40 meq/ Potassium Phosphate 22 meq/ Magnesium Sulfate 12 meq/ Multivitamins 10 ml/Chromium/ Copper/Manganese/ Zinc 1 ml/Insulin Human Regular 47 units/Amino Acids/ Dextrose 1,464.47 ml @ 61 mls/hr Q24H1M IV 02/04/25 22:00 02/05/25 21:59 02/04/25 22:19 61 MLS/HR Albuterol 2.5 mg Q2HPRN PRN NEB 02/04/25 12:00 Ipratropium [place] 0.5 mg Q2HPRN PRN NEB 02/04/25 12:00 Fat Emulsion Intravenous 200 ml/Sodium Chloride 80 meq/ Sodium Phosphate 20 meq/Potassium Chloride 60 meq/ Magnesium Sulfate 16 meq/ Multivitamins 10 ml/Chromium/ Copper/Manganese/ Zinc 1 ml/Insulin Human Regular 49 units/Amino Acids/ Dextrose 1,620.49 ml @ 67 mls/hr [id number] IV 02/05/25 22:00 02/06/25 21:59 Acetaminophen/ Hydrocodone Bitart 1 tab Q4HPRN PRN PO 02/05/25 11:45 Ipratropium [place] 0.5 mg Q4HR NEB 02/05/25 14:00 Megestrol Acetate 400 mg DAILY PO 02/05/25 12:00 02/05/25 12:00 400 MG Enoxaparin Sodium 65 mg Q12HR SC 02/05/25 22:00 Examination: GENERAL:Abnormal (Generalized weakness), LUNGS:Abnormal (Diminished throughout), CVS:Normal, NEURO:Normal laboratory and microbiology Laboratory Tests 02/05/25 04:40 02/04/25 08:10 Test 02/05/25 04:40 Range/Units Serum Glucose 165 H 74-106 mg/dL Problem List/Assessment/Plan Problem List/Assessment/Plan Acute decompensated HFpEF, NYHA class III Paroxysmal Atrial fibrillation, Stage 3a (on Xarelto) Hypertension Pneumoperitoneum Sepsis History of abdominal aortic aneurysm Pulmonary hypertension Type 2 diabetes mellitus Morbid obesity Plan/Recommendation We will continue with the following plan/recommendations (Dr. Arechiga): Patient seen and examined at bedside with . This patient was previously seen by the cardiology team for preprocedural cardiovascular examination. At this time, cardiology has been reconsulted on this patient to evaluate for CHF given patient is having shortness of breath. Transthoracic echocardiogram reveals EF 75% with septal hypertrophy and RVSP 48 mmHg. [place] heart failure diagnostic criteria: Positive. Initiate guideline directed medical therapy for CHF as tolerated. Strict intake and output, daily weights, maintain fluid restriction. Diuresis as tolerated. Continue with diuretics as tolerated. [id number] VASc score: 5 points. Therapeutic Lovenox while inpatient, transition back to NOAC (Xarelto) prior to discharge. Metoprolol for rate control as needed. Elevated D-dimer, consider CTA to rule out pulmonary embolism. Thank you for allowing us to care for this patient. Please call with any questions or concerns. This medical document was created using an electronic medical record system with voice recognition software and computerized dictation system. Although this document has been carefully reviewed, there might still be some phonetic and typographical errors. Occasional wrong-word or ``sound-alike substitutions may have occurred due to the inherent limitations of voice recognition software. These areas are purely typographical due to imperfections of the software programs and do not reflect any compromise in the patient's medical care. Please read the chart carefully and recognize, using context, where these substitutions have occurred. Plan discussed with: Patient Dietary Evaluation Review Comments: 1. Advance TPN to meet at least 75% estimated needs 2. Contineu current POC Expected Outcomes/Goals: To meet >75% estimated needs Fu 2-3 days Date of Service: Feb 05, 2025 Billing Provider: MYA HELLER Common Visit Codes: [id number] INP/OBS CARE(HIGH) MYA HELLER Feb 05, 2025 17:07
[2025-02-05] MEDS: FUROSEMIDE 20 MG/2 ML VIAL IV SCH (18:15)
[2025-02-05] MEDS: HYDROcodone-ACET 5/325MG TAB PO PRN (20:16)
--- NOTE | 2025-02-05 20:21 | DVH ---
BILATERAL LOWER EXTREMITY VENOUS DOPPLER ULTRASOUND CLINICAL HISTORY: elevated D-dimer TECHNIQUE: Grayscale ultrasound with compression, color Doppler flow imaging with pulsed duplex sonog teresa of the bilateral lower extremity deep venous system from the common femoral veins through the p opliteal veins is performed. COMPARISON: None FINDINGS: Right common femoral vein: Negative. Right greater saphenous vein: Negative. Right deep femoral vein: Negative. Right femoral vein: Negative. Right popliteal vein: Negative. Left common femoral vein: Negative. Left greater saphenous vein: Negative. Left deep femoral vein: Negative. Left femoral vein: Negative. Left popliteal vein: Negative. Other: Visualized bilateral popliteal trifurcation and posterior tibial veins demonstrate color flow. IMPRESSION: No sonographic evidence of deep venous thrombosis in either lower extremity at this time.
--- NOTE | 2025-02-05 20:27 | DVHINCON2 ---
Date of service: Feb 05, 2025 Referring Physician Basil Long MD [facility] Reason for Consultation Acute hypoxic/chronic hypercarbic respiratory failure, pulmonary edema, and pl eural effusion History of Present Illness A 74-year-old man with past medical history that includes atrial fibrillation (on Xarelto), abdominal aortic aneurysm, hypertension, DM type 2, and morbid obesity who presented to ED on 01/15/25 with chief complaint of abdominal pain and near syncopal episode. Patient reported severe epigastric pain radiating to the chest, mid and lower abdomen, sharp in nature, with associated shortness of breath and nausea, getting worse that prompted this visit. Patient was seen and evaluated in the ED. Initial labs showed WBC 9.7, hemoglobin 10.0, hematocrit 33.9, platelets 421. Sodium was 138, potassium 4.1, BUN 18, creatinine 1.02, glucose 210, BNP 72.67, lipase 54, troponin 4, and lactic acid 2.6. Vitals: Blood pressure 80/42 trending up to 117/47, heart rate 63, temperature 97.2 F, O2 saturation 92% on oxygen. Abdomen/pelvis CT revealed findings of pneumoperitoneum. Patient was admitted for further care. Pulmonary consultation is requested for evaluation and management of acute hypoxic/chronic hypercarbic respiratory failure, pulmonary edema, and pleural effusion. Review of Systems: 14-point review of systems negative unless otherwise noted above. Past Medical History: Atrial fibrillation (on Xarelto), abdominal aortic aneurysm, hypertension, hyperlipidemia, type 2 diabetes mellitus, anemia, and morbid obesity. 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 Medications: Reviewed. Allergies: No known drug allergies. Family History: Positive for hypertension. No family history of premature CAD. No family history of lung disorders. Social History: Former smoker. Pt with 30 pack-year history, quit smoking approximately 15 years ago Denies any alcohol use Denies any illicit drug use Family History: Hypertension G8 FATHER Allergies: Coded Allergies: Statins (Verified Allergy, Severe, 01/01/24) Home Meds Reported Medications Rivaroxaban (Xarelto Tablet) 20 Mg Tb, 20 MG PO DAILY, TAB 01/15/25 Lisinopril (Lisinopril) 40 Mg Tab, 40 MG PO DAILY for 30 Days, MG 01/15/25 Chlorpheniramine Maleate (Chlorpheniramine Maleate) 12 Mg Tab, 12 MG PO DAILY PRN for allergy, TAB 01/15/25 Bdrybmxwiys-Pcroghihkeal-Nxtiu (Trelegy Ellipta 100-62.5-25 Mcg/INH) 1 Aer Aer, 1 AER IN DAILY, AER 01/15/25 Empagliflozin (Jardiance) 10 Mg Tab, 10 MG PO DAILY, TAB 01/15/25 Cetirizine Hcl (Kls Aller-Renetta) 10 Mg Tab, 1 TAB PO DAILY, #30 TAB 3 Refills 01/11/24 Omeprazole (Gnp Omeprazole) 20 Mg Tab, 1 TAB PO BID, #90 TAB 1 Refill 01/11/24 Polyethylene Glycol 3350 (Polyethylene Glycol) 17 Gm/Scoop Pow, 17 GM PO DAILY, POW 01/11/24 Warfarin Sodium (Warfarin Sodium) 5 Mg Tab, 15 MG PO MWFSa for 30 Days, MG 01/02/24 Diltiazem Hcl (Cardizem La) 120 Mg Tab, 1 01/01/24 Hctz (Hydrochlorothiazide) 25 Mg Tab, 12.5 MG PO DAILY 01/01/24 Lisinopril (Lisinopril) 40 Mg Tab, 1 TAB PO DAILY 01/01/24 Warfarin Sodium (Warfarin Sodium) 10 Mg Tab, 1 TAB PO TUE,BROOKE,SUN 01/01/24 Tramadol Hcl (Tramadol Hcl) 50 Mg Tab, 1 TAB PO BIDPRN PRN 01/01/24 Cyclobenzaprine HCl (Cyclobenzaprine Hydrochlo) 5 Mg Tab, 1 TAB PO BID 01/01/24 Gabapentin (Gabapentin) 300 Mg Cap, 3 CAP PO TID 01/01/24 Metoprolol Succinate (Metoprolol Succinate Er) 100 Mg Tab, 50 TAB PO DAILY 01/01/24 Metformin Hydrochloride (Metformin Hcl) 1,000 Mg Tab, 1 TAB PO BID 01/01/24 Oxycodone Hcl (OXYCODONE HCL) 5 Mg Tb, 1 TAB PO TID PRN 01/01/24 Current Medications Current Medications Medications (Trade) Dose Ordered Sig/Vincent Route PRN Reason Start Time Stop Time Status Last Admin Fat Emulsion Intravenous 200 ml/Sodium Chloride 80 meq/ Sodium Phosphate 20 meq/Potassium Chloride 40 meq/ Potassium Phosphate 22 meq/ Magnesium Sulfate 12 meq/ Multivitamins 10 ml/Chromium/ Copper/Manganese/ Zinc 1 ml/Insulin Human Regular 47 units/Amino Acids/ Dextrose 1,464.47 ml @ 61 mls/hr Q24H1M IV 02/04/25 22:00 02/05/25 21:59 02/04/25 22:19 Fat Emulsion Intravenous 200 ml/Sodium Chloride 80 meq/ Sodium Phosphate 20 meq/Potassium Chloride 60 meq/ Magnesium Sulfate 16 meq/ Multivitamins 10 ml/Chromium/ Copper/Manganese/ Zinc 1 ml/Insulin Human Regular 49 units/Amino Acids/ Dextrose 1,620.49 ml @ 67 mls/hr [id number] IV 02/05/25 22:00 02/06/25 21:59 Acetaminophen/ Hydrocodone Bitart ([place] 5/325MG Tab) 1 tab Q4HPRN PRN PO SEVERE PAIN (7-10 PAIN SCALE) 02/05/25 11:45 02/05/25 20:16 Ipratropium [place] (Atrovent Medneb) 0.5 mg Q4HR NEB 02/05/25 14:00 Megestrol Acetate (Megace Oral Suspension) 400 mg DAILY PO 02/05/25 12:00 02/05/25 12:00 Enoxaparin Sodium (Lovenox) 65 mg Q12HR SC 02/05/25 22:00 Furosemide (Lasix Injection) 20 mg BIDD IV 02/05/25 18:00 02/05/25 18:15 Empaglifozin (Jardiance) 10 mg DAILY PO 02/06/25 10:00 Vital Signs Vital Signs Date Time Temp Pulse Resp B/P (MAP) Pulse Ox O2 Delivery O2 Flow Rate FiO2 02/05/25 19:48 18 Nasal Cannula* 4 36 02/05/25 19:07 78 100 02/05/25 18:15 128/65 02/05/25 16:38 97.3 97.3 Physical Exam Gen.: Patient lying in bed in no apparent distress. On supplemental oxygen. Head: Normocephalic, atraumatic. Eyes: EOMI/PERRLA. Ears: Normal hearing. Normal anatomy. Neck/trachea: Trachea midline, supple. Nose: Normal external anatomy. Mouth: Moist mucous membranes. Chest: Decreased air entry bilaterally. No wheezing or rhonchi. Cardiovascular: Positive S1, positive S2. Regular rate and rhythm. Abdomen: Positive bowel sounds in all 4 quadrants. Soft, non-tender, non- distended. : Deferred. Rectal: Deferred. Skin: Warm, dry. Intact. Extremities: 2+ radial pulses bilaterally. No lower extremity edema. Neuro: Awake, alert, oriented x3. No gross motor or sensory deficits. Cranial nerves II through XII intact. Gait not assessed. Labs/Diagnostic Data Labs Test 02/05/25 13:22 02/05/25 12:18 02/05/25 04:40 02/04/25 08:10 Range/Units D-Dimer, Quantitative 3.52 H 0.0-0.49 mg/L FEU POC Glucose 191 H 70-106 mg/dl Sodium Level 140 136-145 mmol/L Potassium Level 3.8 3.5-5.1 mmol/L Chloride Level 93 L 98-107 mmol/L Carbon Dioxide Level > 40 *H 20-31 mmol/L Anion Gap 6.52700 5-15 Blood Urea Nitrogen 18 9-23 mg/dL Creatinine 0.61 L 0.700-1.30 mg/dL Glomerular Filtration Rate Calc 100 >90 mL/min BUN/Creatinine Ratio 29.5 H 10.0-20.0 Serum Glucose 165 H 74-106 mg/dL Calcium Level 9.1 8.7-10.4 mg/dL Phosphorus Level 3.0 2.4-5.1 mg/dL Magnesium Level 1.8 1.6-2.6 mg/dL Total Bilirubin 0.2 0.2-1.0 mg/dL Aspartate Amino Transferase (AST) 12 L 13-40 U/L Alanine Aminotransferase (ALT) 15 7-40 U/L Alkaline Phosphatase 71 46-116 U/L Total Protein 6.6 5.7-8.2 g/dL Albumin 3.1 L 3.2-4.8 g/dL Triglycerides Level 92 < 150 mg/dL White Blood Count 8.4 4.4-10.8 10^3/uL Red Blood Count 4.13 L 4.5-5.90 10^6/uL Hemoglobin 9.3 #L 13.5-17.5 g/dL Hematocrit 30.6 #L 41.0-53.0 % Mean Corpuscular Volume 74.1 L 80.0-100.0 fL Mean Corpuscular Hemoglobin 22.5 L 28.0-32.0 pg Mean Corpuscular Hemoglobin Concent 30.3 L 32.0-36.0 g/dL Red Cell Distribution Width 18.9 H 11.8-14.3 % Platelet Count 418 140-450 10^3/uL Mean Platelet Volume 7.0 6.9-10.8 fL Neutrophils (%) (Auto) 82.7 H 37.0-80.0 % Lymphocytes (%) (Auto) 7.6 L 10.0-50.0 % Monocytes (%) (Auto) 6.3 0.0-12.0 % Eosinophils (%) (Auto) 2.8 0.0-7.0 % Basophils (%) (Auto) 0.6 0.0-2.0 % Neutrophils # (Auto) 7.0 1.6-8.6 10 ^3/uL Lymphocytes # (Auto) 0.6 0.4-5.4 10 ^3/uL Monocytes # (Auto) 0.5 0-1.3 10 ^3/uL Eosinophils # (Auto) 0.2 0-0.8 10 ^3/uL Basophils # (Auto) 0 0-0.2 10 ^3/uL Nucleated Red Blood Cells 0.4 % Test 02/03/25 12:29 02/02/25 05:07 01/25/25 09:35 01/24/25 09:50 Range/Units Blood Gas Specimen Type Arterial Blood Gas Sample Site Right radial Blood Gas Patient Temperature 37.0 Arterial Blood Date Drawn [id number] Arterial Blood pH 7.342 L 7.350-7.450 Arterial Blood Partial Pressure CO2 64.2 *H 35.0-48.0 mmHg Arterial Blood Partial Pressure O2 < 36.5 *L 83.0-108.0 mmHg Arterial Blood HCO3 34.0 H 21.0-28.0 mmol/L Arterial Blood Oxygen Saturation 64.6 *L 94.0-98.0 % Arterial Blood Base Excess 7.0 H -2.0-3.0 mmol/L Arterial Blood Oxyhemoglobin 63.8 L 94.0-98.0 % Arterial Blood Carboxyhemoglobin 1.1 0.5-1.5 % Arterial Blood Methemoglobin 0.2 0.0-1.5 % Agustin Test Yes Blood Gas Total Hemoglobin 8.80 L 13.5-17.5 g/dL Blood Gas Modality Room air FiO2 % 21.0 Blood Gas Critical Value Read Back Yes Blood Gas Notified Whom H cordelia francis Blood Gas Notified Time [id number] Blood Gas Notified By Payroll And Benefits Coordinator galen gomez Platelet Estimate Adequate Hypochromasia (manual) Moderate Microcytosis Moderate Estimated GFR () 191 mL/min Estimated GFR (Non- 158 mL/min Body Fluid Glucose . mg/dL Body Fluid Creatinine . mg/dL Differential Total Cells Counted 100.0 100 Neutrophils % (Manual) 84 H 37.0-80.0 Band Neutrophils % (Manual) 5 Lymphocytes % (Manual) 4 L 10.0-50.0 Monocytes % (Manual) 7 0-12 Eosinophils % (Manual) 0 0-7 Basophils % (Manual) 0 0.0-2.0 Metamyelocytes % (manual) 0 Myelocytes % (Manual) 0 Promyelocytes % (Manual) 0 Blast Cells % (Manual) 0 Reactive Lymphocytes 0 Prothrombin Time 10.3 9.3-11.8 sec Prothrombin Time INR 0.97 0.9-1.15 Activated Partial Thromboplast Time 26.7 24.5-34.5 SEC Test 01/19/25 00:46 01/17/25 08:10 01/17/25 07:51 01/17/25 06:10 Range/Units Vancomycin Level Trough 13.0 H 5-10 ug/mL Lactic Acid Level 1.1 0.4-2.0 mmol/L Blood Gas Set Respiration Rate 16.0 Blood Gas EPAP 5 Blood Gas IPAP 12 Blood Gas Liter Flow 2.00 Test 01/17/25 05:02 01/16/25 20:45 01/15/25 01:59 01/15/25 01:28 Range/Units Blood Gas Spontaneous Rate 22 Hemoglobin A1c 7.2 H <5.7 % A1C Urine Color Light-yellow Yellow Urine Clarity Clear Clear Urine pH 6.0 5.0-9.0 Urine Specific [place] 1.018 1.001-1.035 Urine Protein Negative Negative Urine Ketones Negative Negative Urine Blood Negative Negative /uL Urine Nitrite Negative Negative Urine Bilirubin Negative Negative Urine Urobilinogen Normal Negative mg/dL Urine Leukocyte Esterase Negative Negative /uL Urine RBC <1 0 - 3 /hpf Urine Microscopic WBC 0-3 /HPF Urine Squamous Epithelial Cells None seen <5 /hpf Urine Bacteria None seen None Seen /hpf Urine Glucose 4+ H Normal mg/dL Troponin I High Sensitivity 4 </=54 ng/L Test 01/15/25 00:28 Range/Units B-Type Natriuretic Peptide 72.67 0-100 pg/mL Lipase 54 H 12-53 U/L Microbiology Date/Time Source Procedure Growth Status 01/25/25 09:35 Aspirate Gram Stain - Final Complete 01/25/25 09:35 Body Fluid Culture - Final Escherichia coli Presumptive Zenaida albicans Complete 01/15/25 00:28 Blood Blood Culture - Final NO GROWTH AFTER 5 DAYS OF INCUBATION. Complete Assessment Impression: Acute hypoxic respiratory failure Chronic hypercarbic respiratory failure Dependence on supplemental oxygen Pulmonary edema Pleural effusion Atelectasis Morbid obesity, BMI 43.3 Obstructive sleep apnea Plan: Supplemental oxygen 2 LPM NC Titrate to keep O2 sats between 88-94%. Taper O2 as tolerated. ABG reviewed, compensated. CXR reviewed, notable for bilateral opacities, pulmonary edema, moderate left pleural effusion and small right pleural effusion. Obtain limited chest ultrasound to evaluate if pleural effusions amenable for thoracentesis Continue bronchodilators. Continue antibiotics/antifungals Incentive spirometry Monitor hemoglobin Protonix BID Lasix IVP given x1. Monitor renal function. Monitor electrolytes. Supplement as necessary. Monitor ins and outs. TPN for nutritional support Diet and lifestyle modifications for weight reduction Morbid obesity - complicates all care DVT prophylaxis. Prognosis: Poor given patient's multiple co-morbidities. Rest of plan per hospitalist and other consultants. Thank you Dr. Long, for allowing me to participate in this patient's care. Further recommendations will depend on the patient's clinical course. Please do not hesitate to contact me if you have any questions or concerns. This medical document was created using an electronic medical record system with [employer] dictation system. Although these documentations are being carefully reviewed, there may still be some phonetic and typographical changes. The errors are purely typographical, due to imperfection on the software program, and do not reflect any compromise in the patient's medical care. Plan discussed with: Patient, Other (NEERU Russ/Dr. Long) ANDRAE MEYER MD Feb 05, 2025 20:27
[2025-02-05] MEDS: ENOXAPARIN SOD 80 MG/0.8ML SYRINGE SC SCH (21:13)
[2025-02-05] MEDS: TPN PER PHARMACY IV NR (21:21)
--- NOTE | 2025-02-05 23:16 | DVHPN2 ---
Consult Progress Note Subjective Other Systems: Patient was seen and evaluated in follow up. 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 Patient recieving TPN at 67 ml/hr. D-DIMER 3.52, CO2 > 40. Chest US shows trace bilateral pleural effusion. Telemetry reviewed. Objective vital signs Vital Sign Date Time Temp Pulse Resp B/P (MAP) Pulse Ox O2 Delivery O2 Flow Rate FiO2 02/05/25 16:38 97.3 74 19 128/56 (80) 94 97.3 02/05/25 08:00 Nasal Cannula* 4 36 Total Intake and Output 02/04/25 02/04/25 02/05/25 15:00 23:00 07:00 Intake Total 620 ml 698.30 ml 1365.96 ml Output Total 900 ml 3300 ml Balance 620 ml -201.70 ml -1934.04 ml medications Current Medications Medications Dose Ordered Sig/Vincent Route Start Time Stop Time Status Last Admin Dose Admin Warfarin Sodium RX PROTOCOL PER PHARMACY PO 01/15/25 01:45 Cancel Acetaminophen/ Hydrocodone Bitart 1 tab Q4HP PRN PO 01/15/25 01:45 Hold 02/05/25 13:54 1 TAB Ondansetron HCl 4 mg Q4HP PRN IV 01/15/25 01:45 02/05/25 09:21 4 MG Docusate Sodium 100 mg BIDPRN PRN PO 01/15/25 01:45 Acetaminophen 650 mg Q6HP PRN PO 01/15/25 01:45 Nitroglycerin 0.4 mg Q5MINP PRN SL 01/15/25 01:45 Pantoprazole Sodium 40 mg BID IV 01/15/25 10:00 02/05/25 09:20 40 MG Amino Acids 0 ml @ 0 mls/hr PER PHARMACY IV 01/16/25 13:15 Sodium Chloride 10 ml QSHIFT@10,22 IV 01/16/25 22:00 02/05/25 09:21 10 ML Hydralazine HCl 10 mg Q6HP PRN IV 01/16/25 20:00 Lorazepam 0.5 mg Q6HP PRN IV 01/17/25 07:45 02/05/25 15:38 0.5 MG Diagnostic Test (Pha) 1 strip Q6HR 01/17/25 18:00 02/05/25 12:16 1 STRIP Insulin Human Regular FOLLOW SLIDING SCALE Q6HR SC 01/17/25 18:00 02/05/25 12:20 4 UNITS Dextrose 50 ml UD IV 01/17/25 18:00 Metoprolol Tartrate 2.5 mg Q6HPRN PRN IV 01/19/25 13:00 Piperacillin Sod/ Tazobactam Sod 100 ml @ 25 mls/hr Q8H IV 01/25/25 15:00 02/05/25 15:21 25 MLS/HR Potassium Chloride 100 ml @ 50 mls/hr Q2H IV 01/26/25 17:30 01/26/25 21:29 UNV Fluconazole 100 ml @ 100 mls/hr 10,11 IV 02/01/25 10:00 02/05/25 11:00 100 MLS/HR Albuterol 2.5 mg Q4HR NEB 02/03/25 06:00 02/05/25 14:06 2.5 MG Ipratropium [place] 0.5 mg Q4HR NEB 02/03/25 06:00 02/05/25 14:06 0.5 MG Fat Emulsion Intravenous 200 ml/Sodium Chloride 80 meq/ Sodium Phosphate 20 meq/Potassium Chloride 40 meq/ Potassium Phosphate 22 meq/ Magnesium Sulfate 12 meq/ Multivitamins 10 ml/Chromium/ Copper/Manganese/ Zinc 1 ml/Insulin Human Regular 47 units/Amino Acids/ Dextrose 1,464.47 ml @ 61 mls/hr Q24H1M IV 02/04/25 22:00 02/05/25 21:59 02/04/25 22:19 61 MLS/HR Albuterol 2.5 mg Q2HPRN PRN NEB 02/04/25 12:00 Ipratropium [place] 0.5 mg Q2HPRN PRN NEB 02/04/25 12:00 Fat Emulsion Intravenous 200 ml/Sodium Chloride 80 meq/ Sodium Phosphate 20 meq/Potassium Chloride 60 meq/ Magnesium Sulfate 16 meq/ Multivitamins 10 ml/Chromium/ Copper/Manganese/ Zinc 1 ml/Insulin Human Regular 49 units/Amino Acids/ Dextrose 1,620.49 ml @ 67 mls/hr [id number] IV 02/05/25 22:00 02/06/25 21:59 Acetaminophen/ Hydrocodone Bitart 1 tab Q4HPRN PRN PO 02/05/25 11:45 Ipratropium [place] 0.5 mg Q4HR NEB 02/05/25 14:00 Megestrol Acetate 400 mg DAILY PO 02/05/25 12:00 02/05/25 12:00 400 MG Enoxaparin Sodium 65 mg Q12HR SC 02/05/25 22:00 Furosemide 20 mg BIDD IV 02/05/25 18:00 Empaglifozin 10 mg DAILY PO 02/06/25 10:00 UNV Examination: GENERAL:Abnormal, HEENT:Normal, LUNGS:Abnormal (Diminished throughout), CVS:Normal, ABDOMEN:Normal, NEURO:Normal laboratory and microbiology Laboratory Tests 02/05/25 04:40 02/04/25 08:10 Test 02/05/25 04:40 Range/Units Serum Glucose 165 H 74-106 mg/dL Problem List/Assessment/Plan Problem List/Assessment/Plan Problem List/Assessment/Plan Acute decompensated HFpEF, NYHA class III. Paroxysmal Atrial fibrillation, Stage 3a (on Xarelto). Hypertension. Pneumoperitoneum. Sepsis. History of abdominal aortic aneurysm. Pulmonary hypertension. Type 2 diabetes mellitus. Morbid obesity. Plan/Recommendation Patient has been seen by Oriana De Los Santos NP on my behalf, her and I discussed the plan with the patient. This patient was previously seen by the cardiology team for preprocedural cardiovascular examination. At this time, cardiology has been reconsulted on this patient to evaluate for CHF given patient is having shortness of breath. Transthoracic echocardiogram reveals EF 75% with septal hypertrophy and RVSP 48 mmHg. [place] heart failure diagnostic criteria: Positive. Initiate guideline directed medical therapy for CHF as tolerated. Strict intake and output, daily weights, maintain fluid restriction. Diuresis as tolerated. Continue with diuretics as tolerated. [id number] VASc score: 5 points. Therapeutic Lovenox while inpatient, transition back to NOAC (Xarelto) prior to discharge. Metoprolol for rate control as needed. Elevated D-dimer, consider CTA to rule out pulmonary embolism. Additional plan as per the hospital course. Plan discussed with: Patient Dietary Evaluation Review Comments: 1. Advance TPN to meet at least 75% estimated needs 2. Contineu current POC Expected Outcomes/Goals: To meet >75% estimated needs Fu 2-3 days Date of Service: Feb 05, 2025 Billing Provider: KRISTIN JOSEPH MD Cardiology Common Codes: [id number] INP/OBS CARE (High) KRISTIN JOSEPH MD Feb 05, 2025 17:12
[2025-02-06] VITALS (21 sets, daily range): BP systolic 109–146; BP diastolic 48–80; PULSE 61–88; RESP 16–22; TEMP 97.6–98.1; O2SAT 90–100
[2025-02-06 08:13] LABS: Alanine Aminotransferase 14 U/L (7-40); Alkaline Phosphatase 66 U/L (46-116); Aspartate Aminotransferase 13 U/L (13-40); BUN/Creatinine Ratio 31.1 (10.0-20.0); Blood Urea Nitrogen 19 mg/dL (9-23); Calcium 9.3 mg/dL (8.7-10.4); Potassium 3.8 mmol/L (3.5-5.1); Sodium 138 mmol/L (136-145); Total Protein 6.7 g/dL (5.7-8.2)
[2025-02-06 08:14] LABS: Phosphorus 2.8 mg/dL (2.4-5.1)
[2025-02-06 08:16] LABS: Albumin 3.1 g/dL (3.2-4.8); Anion Gap 7.99999 (5-15); Bilirubin, Total < 0.2 mg/dL (0.2-1.0); Chloride 90 mmol/L (98-107); Glucose 175 mg/dL (74-106)
[2025-02-06 08:21] LABS: Carbon Dioxide > 40 mmol/L (20-31)
--- NOTE | 2025-02-06 09:32 | ECG ---
[facility] Test Date: 2025-02-05 Test Time: 13:39:12 Pat Name: LYLE LOPES Department: Room: 0276T A Gender: M [employer]: NEERU : 1950 Requested By: SID GALLARDO Order Number: [id number] Reading MD: Slade Augustine Measurements Intervals [place] Rate: 70 P: 75 MO: 275 QRS: -67 QRSD: 158 T: 28 QT: 459 QTc: 496 Interpretive Statements Sinus rhythm Prolonged MO interval RBBB and LAFB Baseline wander in lead(s) II,III,aVF Electronically Signed On 02-08-2025 20:18:36 PDT by Slade Augustine Please click the below link to view image of tracing.
[2025-02-06] MEDS: EMPAGLIFLOZIN 10 MG TAB PO SCH (09:33)
--- NOTE | 2025-02-06 12:00 | DVHPN2 ---
Reviewed: Care Plan, H&P, Labs, Medications, Previous Orders, Radiology Changes from previous H/P or p: No Changes General: Per HPI Objective Vitals Vital Signs Date Time Temp Pulse Resp B/P (MAP) Pulse Ox O2 Delivery O2 Flow Rate FiO2 02/06/25 10:44 88 20 100 02/06/25 09:15 97.7 141/59 (86) 97.7 02/06/25 08:11 Nasal Cannula* 4 36 Intake/Output Intake and Output 02/06/25 07:00 Intake Total 3000 ml Output Total 2950 ml Balance 50 ml Intake Oral 2400 ml IV Total 600 ml Output Urine Total 2950 ml General Appearance: Alert, Oriented X3, No acute distress HEENT: Atraumatic, PERRLA, EOMI, Mucous membr. moist/pink Neck: Supple Lungs: Clear to auscultation, Normal air movement Cardiovascular: Regular rate, Normal S1, Normal S2, No murmurs, Gallops, Rubs Abdomen: Normal bowel sounds, Soft, No tenderness Neuro: Cranial nerves 3-12 NL Psych/Mental Status: Mental status NL Medications Current Medications Medications Dose Ordered Sig/Vincent Route Start Time Stop Time Status Last Admin Dose Admin Warfarin Sodium RX PROTOCOL PER PHARMACY PO 01/15/25 01:45 Cancel Acetaminophen/ Hydrocodone Bitart 1 tab Q4HP PRN PO 01/15/25 01:45 Hold 02/05/25 13:54 1 TAB Ondansetron HCl 4 mg Q4HP PRN IV 01/15/25 01:45 02/06/25 09:32 4 MG Docusate Sodium 100 mg BIDPRN PRN PO 01/15/25 01:45 Acetaminophen 650 mg Q6HP PRN PO 01/15/25 01:45 Nitroglycerin 0.4 mg Q5MINP PRN SL 01/15/25 01:45 Pantoprazole Sodium 40 mg BID IV 01/15/25 10:00 02/06/25 09:32 40 MG Amino Acids 0 ml @ 0 mls/hr PER PHARMACY IV 01/16/25 13:15 Sodium Chloride 10 ml QSHIFT@10,22 IV 01/16/25 22:00 02/06/25 10:00 10 ML Hydralazine HCl 10 mg Q6HP PRN IV 01/16/25 20:00 Lorazepam 0.5 mg Q6HP PRN IV 01/17/25 07:45 02/06/25 11:27 0.5 MG Diagnostic Test (Pha) 1 strip Q6HR 01/17/25 18:00 02/06/25 11:27 1 STRIP Insulin Human Regular FOLLOW SLIDING SCALE Q6HR SC 01/17/25 18:00 02/06/25 11:31 8 UNITS Dextrose 50 ml UD IV 01/17/25 18:00 Metoprolol Tartrate 2.5 mg Q6HPRN PRN IV 01/19/25 13:00 Potassium Chloride 100 ml @ 50 mls/hr Q2H IV 01/26/25 17:30 01/26/25 21:29 UNV Fluconazole 100 ml @ 100 mls/hr 10,11 IV 02/01/25 10:00 02/06/25 11:26 100 MLS/HR Albuterol 2.5 mg Q4HR NEB 02/03/25 06:00 02/06/25 10:34 2.5 MG Ipratropium [place] 0.5 mg Q4HR NEB 02/03/25 06:00 02/06/25 10:34 0.5 MG Albuterol 2.5 mg Q2HPRN PRN NEB 02/04/25 12:00 Ipratropium [place] 0.5 mg Q2HPRN PRN NEB 02/04/25 12:00 Fat Emulsion Intravenous 200 ml/Sodium Chloride 80 meq/ Sodium Phosphate 20 meq/Potassium Chloride 60 meq/ Magnesium Sulfate 16 meq/ Multivitamins 10 ml/Chromium/ Copper/Manganese/ Zinc 1 ml/Insulin Human Regular 49 units/Amino Acids/ Dextrose 1,620.49 ml @ 67 mls/hr [id number] IV 02/05/25 22:00 02/06/25 21:59 02/05/25 21:21 67 MLS/HR Acetaminophen/ Hydrocodone Bitart 1 tab Q4HPRN PRN PO 02/05/25 11:45 02/06/25 09:33 1 TAB Ipratropium [place] 0.5 mg Q4HR NEB 02/05/25 14:00 Megestrol Acetate 400 mg DAILY PO 02/05/25 12:00 02/06/25 09:33 400 MG Enoxaparin Sodium 65 mg Q12HR SC 02/05/25 22:00 02/06/25 09:33 65 MG Furosemide 20 mg BIDD IV 02/05/25 18:00 02/06/25 05:53 20 MG Empaglifozin 10 mg DAILY PO 02/06/25 10:00 02/06/25 09:33 10 MG Fat Emulsion Intravenous 200 ml/Sodium Chloride 80 meq/ Sodium Phosphate 40 meq/Potassium Chloride 80 meq/ Magnesium Sulfate 14 meq/ Multivitamins 10 ml/Chromium/ Copper/Manganese/ Zinc 1 ml/Insulin Human Regular 47 units/Amino Acids/ Dextrose 1,584.97 ml @ 66 mls/hr Q24H1M IV 02/06/25 22:00 02/07/25 21:59 Laboratory Results Laboratory Tests 02/04/25 08:10 02/06/25 07:09 Chemistry Test 02/06/25 07:09 Albumin 3.1 g/dL (3.2-4.8) L Calcium Level 9.3 mg/dL (8.7-10.4) Magnesium Level 2.0 mg/dL (1.6-2.6) Phosphorus Level 2.8 mg/dL (2.4-5.1) Total Protein 6.7 g/dL (5.7-8.2) Coagulation Test 02/05/25 13:22 D-Dimer, Quantitative 3.52 mg/L FEU (0.0-0.49) H LFT Test 02/06/25 07:09 Alanine Aminotransferase (ALT) 14 U/L (7-40) Alkaline Phosphatase 66 U/L (46-116) Aspartate Amino Transferase (AST) 13 U/L (13-40) Total Bilirubin < 0.2 mg/dL (0.2-1.0) L Urinalysis Test 01/15/25 01:59 Urine Color Light-yellow (Yellow) Urine Clarity Clear (Clear) Urine pH 6.0 (5.0-9.0) Urine Specific [place] 1.018 (1.001-1.035) Urine Protein Negative (Negative) Urine Ketones Negative (Negative) Urine Blood Negative /uL (Negative) Urine Nitrite Negative (Negative) Urine Bilirubin Negative (Negative) Urine Urobilinogen Normal mg/dL (Negative) Urine Leukocyte Esterase Negative /uL (Negative) Urine RBC <1 /hpf (0 - 3) Urine Microscopic WBC /HPF (0-3) Urine Squamous Epithelial Cells None seen /hpf (<5) Urine Bacteria None seen /hpf (None Seen) Urine Glucose 4+ mg/dL (Normal) H Microbiology Microbiology Date/Time Source Procedure Growth Status 01/25/25 09:35 Aspirate Gram Stain - Final Complete 01/25/25 09:35 Body Fluid Culture - Final Escherichia coli Presumptive Zenaida albicans Complete 01/15/25 00:28 Blood Blood Culture - Final NO GROWTH AFTER 5 DAYS OF INCUBATION. Complete Assessment/Plan Assessment/Plan Acute hypoxic respiratory failure: Oxygen by nasal cannula, chest x-ray, consult for Dr. Morrissey Intractable abdominal pain, continue Zosyn and doxycycline Perforated viscus and pneumoperitoneum, with history of gastric bypass, conservative management consult by Dr. Bird appreciated Left upper quadrant abscess status post drainage Lactic acidosis, resolved Zenaida in the abdominal abscess aspirate: Continue fluconazole Sepsis due to above Acute respiratory distress Diabetes with hyperglycemia AFib on Coumadin Tachypnea Acute hypokalemia: Replace potassium Lipase elevated, mild Nutrition TPN Time Spent 55 minutes Patient is full code NG tube removed Patient on soft diet Physical therapy ordered Plan discussed with: Patient My Orders Orders - PROMISE CASTANO MD Procedure Category Date Status Time Megestrol Oral PHA 02/05/25 In Process Suspension (Megace 12:00 C-Diff: Collect Next BRINA 02/05/25 In Process Specimen 22:02 Date of Service: Feb 06, 2025 Billing Provider: PROMISE CASTANO MD Common Visit Codes: [id number] INP/OBS CARE(HIGH) PROMISE CASTANO MD Feb 06, 2025 12:00
[2025-02-06] MEDS: TPN PER PHARMACY IV NR (21:51)
--- NOTE | 2025-02-06 21:52 | DVHPN2 ---
Progress Note - Dictate Date Seen: Feb 06, 2025 Medical Necessity Reason Pt with a Central, PICC or Fol: No Subjective [facility] [place] Patient seen and examined at bedside. Remains on supplemental oxygen Overnight events reviewed. vital signs Vital Sign Date Time Temp Pulse Resp B/P (MAP) Pulse Ox O2 Delivery O2 Flow Rate FiO2 02/06/25 19:02 75 20 100 02/06/25 18:56 Nasal Cannula* 4 36 02/06/25 17:00 146/80 02/06/25 16:37 97.7 97.7 Total Intake and Output 02/05/25 02/05/25 02/06/25 15:00 23:00 07:00 Intake Total 300 ml 1500 ml 1200 ml Output Total 650 ml 2300 ml Balance 300 ml 850 ml -1100 ml medications Current Medications Medications Dose Ordered Sig/Vincent Route Start Time Stop Time Status Last Admin Dose Admin Warfarin Sodium RX PROTOCOL PER PHARMACY PO 01/15/25 01:45 Cancel Acetaminophen/ Hydrocodone Bitart 1 tab Q4HP PRN PO 01/15/25 01:45 Hold 02/05/25 13:54 1 TAB Ondansetron HCl 4 mg Q4HP PRN IV 01/15/25 01:45 02/06/25 18:24 4 MG Docusate Sodium 100 mg BIDPRN PRN PO 01/15/25 01:45 Acetaminophen 650 mg Q6HP PRN PO 01/15/25 01:45 Nitroglycerin 0.4 mg Q5MINP PRN SL 01/15/25 01:45 Pantoprazole Sodium 40 mg BID IV 01/15/25 10:00 02/06/25 09:32 40 MG Amino Acids 0 ml @ 0 mls/hr PER PHARMACY IV 01/16/25 13:15 Sodium Chloride 10 ml QSHIFT@10,22 IV 01/16/25 22:00 02/06/25 10:00 10 ML Hydralazine HCl 10 mg Q6HP PRN IV 01/16/25 20:00 Lorazepam 0.5 mg Q6HP PRN IV 01/17/25 07:45 02/06/25 17:32 0.5 MG Diagnostic Test (Pha) 1 strip Q6HR 01/17/25 18:00 02/06/25 17:02 1 STRIP Insulin Human Regular FOLLOW SLIDING SCALE Q6HR SC 01/17/25 18:00 02/06/25 17:02 4 UNITS Dextrose 50 ml UD IV 01/17/25 18:00 Metoprolol Tartrate 2.5 mg Q6HPRN PRN IV 01/19/25 13:00 Potassium Chloride 100 ml @ 50 mls/hr Q2H IV 01/26/25 17:30 01/26/25 21:29 UNV Fluconazole 100 ml @ 100 mls/hr 10,11 IV 02/01/25 10:00 02/06/25 11:26 100 MLS/HR Albuterol 2.5 mg Q4HR NEB 02/03/25 06:00 02/06/25 18:56 2.5 MG Ipratropium [place] 0.5 mg Q4HR NEB 02/03/25 06:00 02/06/25 18:56 0.5 MG Albuterol 2.5 mg Q2HPRN PRN NEB 02/04/25 12:00 Ipratropium [place] 0.5 mg Q2HPRN PRN NEB 02/04/25 12:00 Fat Emulsion Intravenous 200 ml/Sodium Chloride 80 meq/ Sodium Phosphate 20 meq/Potassium Chloride 60 meq/ Magnesium Sulfate 16 meq/ Multivitamins 10 ml/Chromium/ Copper/Manganese/ Zinc 1 ml/Insulin Human Regular 49 units/Amino Acids/ Dextrose 1,620.49 ml @ 67 mls/hr [id number] IV 02/05/25 22:00 02/06/25 21:59 02/05/25 21:21 67 MLS/HR Acetaminophen/ Hydrocodone Bitart 1 tab Q4HPRN PRN PO 02/05/25 11:45 02/06/25 18:25 1 TAB Ipratropium [place] 0.5 mg Q4HR NEB 02/05/25 14:00 Cancel Megestrol Acetate 400 mg DAILY PO 02/05/25 12:00 02/06/25 09:33 400 MG Enoxaparin Sodium 65 mg Q12HR SC 02/05/25 22:00 02/06/25 09:33 65 MG Furosemide 20 mg BIDD IV 02/05/25 18:00 02/06/25 17:00 20 MG Empaglifozin 10 mg DAILY PO 02/06/25 10:00 02/06/25 09:33 10 MG Fat Emulsion Intravenous 200 ml/Sodium Chloride 80 meq/ Sodium Phosphate 40 meq/Potassium Chloride 80 meq/ Magnesium Sulfate 14 meq/ Multivitamins 10 ml/Chromium/ Copper/Manganese/ Zinc 1 ml/Insulin Human Regular 47 units/Amino Acids/ Dextrose 1,584.97 ml @ 66 mls/hr Q24H1M IV 02/06/25 22:00 02/07/25 21:59 objective Gen.: Patient lying in bed in no apparent distress. On supplemental oxygen. Head: Normocephalic, atraumatic. Eyes: EOMI/PERRLA. Ears: Normal hearing. Normal anatomy. Neck/trachea: Trachea midline, supple. Nose: Normal external anatomy. Mouth: Moist mucous membranes. Chest: Decreased air entry bilaterally. No wheezing or rhonchi. Cardiovascular: Positive S1, positive S2. Regular rate and rhythm. Abdomen: Positive bowel sounds in all 4 quadrants. Soft, non-tender, non- distended. : Deferred. Rectal: Deferred. Skin: Warm, dry. Intact. Extremities: 2+ radial pulses bilaterally. No lower extremity edema. Neuro: Awake, alert, oriented x3. No gross motor or sensory deficits. Cranial nerves II through XII intact. Gait not assessed. laboratory and microbiology Laboratory Tests 02/06/25 07:09 02/04/25 08:10 Test 02/06/25 07:09 Range/Units Serum Glucose 175 H 74-106 mg/dL Assessment/Plan Impression: Acute hypoxic respiratory failure Chronic hypercarbic respiratory failure Dependence on supplemental oxygen Pulmonary edema Pleural effusion Atelectasis Morbid obesity, BMI 43.3 Obstructive sleep apnea Events: Remains on supplemental oxygen, 4 LPM NC Taper O2 as tolerated CXR on 02/05 revealed bilateral opacities, pulmonary edema, moderate left pleural effusion and small right pleural effusion. Chest ultrasound demonstrated trace bilateral pleural effusions not amenable for thoracentesis. Continue bronchodilators Continue antibiotics/antifungal On Amiodarone drip Diurese with Lasix BID Monitor renal function. Monitor electrolytes. Supplement as necessary. Monitor ins and outs. TPN for nutritional support Therapeutic Lovenox Labs and imaging reviewed. Rest of plan as noted below. Plan: Supplemental oxygen Titrate to keep O2 sats between 88-94%. Continue bronchodilators. Continue antibiotics/antifungals Incentive spirometry Monitor hemoglobin Protonix BID Monitor renal function. Monitor electrolytes. Supplement as necessary. Monitor ins and outs. TPN for nutritional support Diet and lifestyle modifications for weight reduction Morbid obesity - complicates all care DVT prophylaxis. Prognosis: Guarded given patient's multiple co-morbidities. Rest of plan per hospitalist and other consultants. Thank you Dr. Long, for allowing me to participate in this patient's care. Further recommendations will depend on the patient's clinical course. Please do not hesitate to contact me if you have any questions or concerns. This medical document was created using an electronic medical record system with [employer] dictation system. Although these documentations are being carefully reviewed, there may still be some phonetic and typographical changes. The errors are purely typographical, due to imperfection on the software program, and do not reflect any compromise in the patient's medical care. Dietary Evaluation Review Comments: 1. Advance TPN to meet at least 75% estimated needs 2. Contineu current POC Expected Outcomes/Goals: To meet >75% estimated needs Fu 2-3 days Plan discussed with: Patient, Other (NEERU Lobo) ANDRAE MEYER MD Feb 06, 2025 21:52
[2025-02-07] VITALS (20 sets, daily range): BP systolic 127–150; BP diastolic 57–90; PULSE 62–95; RESP 16–20; TEMP 97.5–98.3; O2SAT 90–100
[2025-02-07 09:53] LABS: Alanine Aminotransferase 14 U/L (7-40); Alkaline Phosphatase 67 U/L (46-116); Aspartate Aminotransferase 14 U/L (13-40); BUN/Creatinine Ratio 33.3 (10.0-20.0); Blood Urea Nitrogen 21 mg/dL (9-23); Calcium 9.2 mg/dL (8.7-10.4); Magnesium 2.1 mg/dL (1.6-2.6); Sodium 138 mmol/L (136-145); Total Protein 6.8 g/dL (5.7-8.2)
[2025-02-07 09:54] LABS: Phosphorus 3.9 mg/dL (2.4-5.1)
[2025-02-07 10:11] LABS: Chloride 90 mmol/L (98-107)
[2025-02-07 10:12] LABS: Albumin 3.2 g/dL (3.2-4.8); Anion Gap 7.99999 (5-15); Bilirubin, Total < 0.2 mg/dL (0.2-1.0); Carbon Dioxide > 40 mmol/L (20-31); Glucose 174 mg/dL (74-106)
--- NOTE | 2025-02-07 10:32 | DVHPN2 ---
Reviewed: Care Plan, H&P, Labs, Medications, Previous Orders, Radiology Changes from previous H/P or p: No Changes General: Per HPI Objective Vitals Vital Signs Date Time Temp Pulse Resp B/P (MAP) Pulse Ox O2 Delivery O2 Flow Rate FiO2 02/07/25 10:20 79 18 92 02/07/25 09:30 97.6 149/66 (93) 97.6 02/07/25 07:37 Nasal Cannula* 4 36 Intake/Output Intake and Output 02/07/25 07:00 Intake Total 2630 ml Output Total 7960 ml Balance -5330 ml Intake Oral 2030 ml IV Total 600 ml Output Urine Total 7960 ml # Bowel Movements 1 General Appearance: Alert, Oriented X3, No acute distress HEENT: Atraumatic, PERRLA, EOMI, Mucous membr. moist/pink Neck: Supple Lungs: Clear to auscultation, Normal air movement Cardiovascular: Regular rate, Normal S1, Normal S2, No murmurs, Gallops, Rubs Abdomen: Normal bowel sounds, Soft, No tenderness Neuro: Cranial nerves 3-12 NL Psych/Mental Status: Mental status NL Medications Current Medications Medications Dose Ordered Sig/Vincent Route Start Time Stop Time Status Last Admin Dose Admin Warfarin Sodium RX PROTOCOL PER PHARMACY PO 01/15/25 01:45 Cancel Acetaminophen/ Hydrocodone Bitart 1 tab Q4HP PRN PO 01/15/25 01:45 Hold 02/05/25 13:54 1 TAB Ondansetron HCl 4 mg Q4HP PRN IV 01/15/25 01:45 02/07/25 06:37 4 MG Docusate Sodium 100 mg BIDPRN PRN PO 01/15/25 01:45 Acetaminophen 650 mg Q6HP PRN PO 01/15/25 01:45 Nitroglycerin 0.4 mg Q5MINP PRN SL 01/15/25 01:45 Pantoprazole Sodium 40 mg BID IV 01/15/25 10:00 02/07/25 09:04 40 MG Amino Acids 0 ml @ 0 mls/hr PER PHARMACY IV 01/16/25 13:15 Sodium Chloride 10 ml QSHIFT@10,22 IV 01/16/25 22:00 02/07/25 09:05 10 ML Hydralazine HCl 10 mg Q6HP PRN IV 01/16/25 20:00 Lorazepam 0.5 mg Q6HP PRN IV 01/17/25 07:45 02/07/25 04:41 0.5 MG Diagnostic Test (Pha) 1 strip Q6HR 01/17/25 18:00 02/07/25 05:57 1 STRIP Insulin Human Regular FOLLOW SLIDING SCALE Q6HR SC 01/17/25 18:00 02/07/25 06:47 2 UNITS Dextrose 50 ml UD IV 01/17/25 18:00 Metoprolol Tartrate 2.5 mg Q6HPRN PRN IV 01/19/25 13:00 Potassium Chloride 100 ml @ 50 mls/hr Q2H IV 01/26/25 17:30 01/26/25 21:29 UNV Fluconazole 100 ml @ 100 mls/hr 10,11 IV 02/01/25 10:00 02/07/25 09:04 100 MLS/HR Albuterol 2.5 mg Q4HR NEB 02/03/25 06:00 02/07/25 10:19 2.5 MG Ipratropium [place] 0.5 mg Q4HR NEB 02/03/25 06:00 02/07/25 10:19 0.5 MG Albuterol 2.5 mg Q2HPRN PRN NEB 02/04/25 12:00 Ipratropium [place] 0.5 mg Q2HPRN PRN NEB 02/04/25 12:00 Acetaminophen/ Hydrocodone Bitart 1 tab Q4HPRN PRN PO 02/05/25 11:45 02/07/25 06:37 1 TAB Ipratropium [place] 0.5 mg Q4HR NEB 02/05/25 14:00 Cancel Megestrol Acetate 400 mg DAILY PO 02/05/25 12:00 02/07/25 09:04 400 MG Enoxaparin Sodium 65 mg Q12HR SC 02/05/25 22:00 02/07/25 09:04 65 MG Furosemide 20 mg BIDD IV 02/05/25 18:00 02/07/25 05:57 20 MG Empaglifozin 10 mg DAILY PO 02/06/25 10:00 02/07/25 09:05 10 MG Fat Emulsion Intravenous 200 ml/Sodium Chloride 80 meq/ Sodium Phosphate 40 meq/Potassium Chloride 80 meq/ Magnesium Sulfate 14 meq/ Multivitamins 10 ml/Chromium/ Copper/Manganese/ Zinc 1 ml/Insulin Human Regular 47 units/Amino Acids/ Dextrose 1,584.97 ml @ 66 mls/hr Q24H1M IV 02/06/25 22:00 02/07/25 21:59 02/06/25 21:51 66 MLS/HR Laboratory Results Laboratory Tests 02/04/25 08:10 02/07/25 09:05 Chemistry Test 02/07/25 09:05 Albumin 3.2 g/dL (3.2-4.8) Calcium Level 9.2 mg/dL (8.7-10.4) Magnesium Level 2.1 mg/dL (1.6-2.6) Phosphorus Level 3.9 mg/dL (2.4-5.1) Total Protein 6.8 g/dL (5.7-8.2) LFT Test 02/07/25 09:05 Alanine Aminotransferase (ALT) 14 U/L (7-40) Alkaline Phosphatase 67 U/L (46-116) Aspartate Amino Transferase (AST) 14 U/L (13-40) Total Bilirubin < 0.2 mg/dL (0.2-1.0) L Urinalysis Test 01/15/25 01:59 Urine Color Light-yellow (Yellow) Urine Clarity Clear (Clear) Urine pH 6.0 (5.0-9.0) Urine Specific [place] 1.018 (1.001-1.035) Urine Protein Negative (Negative) Urine Ketones Negative (Negative) Urine Blood Negative /uL (Negative) Urine Nitrite Negative (Negative) Urine Bilirubin Negative (Negative) Urine Urobilinogen Normal mg/dL (Negative) Urine Leukocyte Esterase Negative /uL (Negative) Urine RBC <1 /hpf (0 - 3) Urine Microscopic WBC /HPF (0-3) Urine Squamous Epithelial Cells None seen /hpf (<5) Urine Bacteria None seen /hpf (None Seen) Urine Glucose 4+ mg/dL (Normal) H Microbiology Microbiology Date/Time Source Procedure Growth Status 01/25/25 09:35 Aspirate Gram Stain - Final Complete 01/25/25 09:35 Body Fluid Culture - Final Escherichia coli Presumptive Zenaida albicans Complete 01/15/25 00:28 Blood Blood Culture - Final NO GROWTH AFTER 5 DAYS OF INCUBATION. Complete Labs and/or images reviewed: Labs reviewed by me, Image(s) reviewed by me Assessment/Plan Assessment/Plan Acute hypoxic respiratory failure: Oxygen by nasal cannula, chest x-ray, consult for Chronic hypercarbic respiratory failure Dependence on home oxygen Intractable abdominal pain, continue Zosyn and doxycycline Perforated viscus and pneumoperitoneum, with history of gastric bypass, conservative management consult by Dr. Bird appreciated Left upper quadrant abscess status post drainage Lactic acidosis, resolved Zenaida in the abdominal abscess aspirate: Continue fluconazole Sepsis due to above Acute respiratory distress Diabetes with hyperglycemia AFib on Coumadin Morbid obesity Obstructive sleep apnea: CPAP Acute hypokalemia: Replace potassium Lipase elevated, mild Nutrition TPN Plan discussed with: Patient My Orders Orders - PROMISE CASTANO MD Procedure Category Date Status Time Pt Request For Service PT 02/06/25 Logged 12:01 Date of Service: Feb 07, 2025 Billing Provider: PROMISE CASATNO MD Common Visit Codes: [id number] INP/OBS CARE(HIGH) PROMISE CASTANO MD Feb 07, 2025 10:32
--- NOTE | 2025-02-07 14:46 | DVHPN2 ---
Progress Note - Dictate Date Seen: Feb 07, 2025 Medical Necessity Reason Pt with a Central, PICC or Fol: No vital signs Vital Sign Date Time Temp Pulse Resp B/P (MAP) Pulse Ox O2 Delivery O2 Flow Rate FiO2 02/07/25 14:12 68 18 94 02/07/25 09:30 97.6 149/66 (93) 97.6 02/07/25 07:37 Nasal Cannula* 4 36 Total Intake and Output 02/06/25 02/06/25 02/07/25 15:00 23:00 07:00 Intake Total 100 ml 1710 ml 820 ml Output Total 4410 ml 3550 ml Balance 100 ml -2700 ml -2730 ml medications Current Medications Medications Dose Ordered Sig/Vincent Route Start Time Stop Time Status Last Admin Dose Admin Warfarin Sodium RX PROTOCOL PER PHARMACY PO 01/15/25 01:45 Cancel Acetaminophen/ Hydrocodone Bitart 1 tab Q4HP PRN PO 01/15/25 01:45 Hold 02/05/25 13:54 1 TAB Ondansetron HCl 4 mg Q4HP PRN IV 01/15/25 01:45 02/07/25 10:45 4 MG Docusate Sodium 100 mg BIDPRN PRN PO 01/15/25 01:45 Acetaminophen 650 mg Q6HP PRN PO 01/15/25 01:45 Nitroglycerin 0.4 mg Q5MINP PRN SL 01/15/25 01:45 Pantoprazole Sodium 40 mg BID IV 01/15/25 10:00 02/07/25 09:04 40 MG Amino Acids 0 ml @ 0 mls/hr PER PHARMACY IV 01/16/25 13:15 Sodium Chloride 10 ml QSHIFT@10,22 IV 01/16/25 22:00 02/07/25 09:05 10 ML Hydralazine HCl 10 mg Q6HP PRN IV 01/16/25 20:00 Lorazepam 0.5 mg Q6HP PRN IV 01/17/25 07:45 02/07/25 13:52 0.5 MG Diagnostic Test (Pha) 1 strip Q6HR 01/17/25 18:00 02/07/25 11:35 1 STRIP Insulin Human Regular FOLLOW SLIDING SCALE Q6HR SC 01/17/25 18:00 02/07/25 11:36 2 UNITS Dextrose 50 ml UD IV 01/17/25 18:00 Metoprolol Tartrate 2.5 mg Q6HPRN PRN IV 01/19/25 13:00 Potassium Chloride 100 ml @ 50 mls/hr Q2H IV 01/26/25 17:30 01/26/25 21:29 UNV Fluconazole 100 ml @ 100 mls/hr 10,11 IV 02/01/25 10:00 02/07/25 10:45 100 MLS/HR Albuterol 2.5 mg Q4HR NEB 02/03/25 06:00 02/07/25 14:12 2.5 MG Ipratropium [place] 0.5 mg Q4HR NEB 02/03/25 06:00 02/07/25 14:11 0.5 MG Albuterol 2.5 mg Q2HPRN PRN NEB 02/04/25 12:00 Ipratropium [place] 0.5 mg Q2HPRN PRN NEB 02/04/25 12:00 Acetaminophen/ Hydrocodone Bitart 1 tab Q4HPRN PRN PO 02/05/25 11:45 02/07/25 10:45 1 TAB Ipratropium [place] 0.5 mg Q4HR NEB 02/05/25 14:00 Cancel Megestrol Acetate 400 mg DAILY PO 02/05/25 12:00 02/07/25 09:04 400 MG Enoxaparin Sodium 65 mg Q12HR SC 02/05/25 22:00 02/07/25 09:04 65 MG Furosemide 20 mg BIDD IV 02/05/25 18:00 02/07/25 05:57 20 MG Empaglifozin 10 mg DAILY PO 02/06/25 10:00 02/07/25 09:05 10 MG Fat Emulsion Intravenous 200 ml/Sodium Chloride 80 meq/ Sodium Phosphate 40 meq/Potassium Chloride 80 meq/ Magnesium Sulfate 14 meq/ Multivitamins 10 ml/Chromium/ Copper/Manganese/ Zinc 1 ml/Insulin Human Regular 47 units/Amino Acids/ Dextrose 1,584.97 ml @ 66 mls/hr Q24H1M IV 02/06/25 22:00 02/07/25 21:59 02/06/25 21:51 66 MLS/HR Fat Emulsion Intravenous 200 ml/Sodium Chloride 120 meq/ Potassium Chloride 80 meq/ Magnesium Sulfate 14 meq/ Multivitamins 10 ml/Chromium/ Copper/Manganese/ Zinc 1 ml/Insulin Human Regular 47 units/Amino Acids/ Dextrose 1,584.97 ml @ 65 mls/hr [id number] IV 02/07/25 22:00 02/08/25 21:59 laboratory and microbiology Laboratory Tests 02/07/25 09:05 02/04/25 08:10 Test 02/07/25 09:05 Range/Units Serum Glucose 174 H 74-106 mg/dL Assessment/Plan Impression Acute hypoxemic respiratory failure Morbid obesity COPD- stable Pneumonia SBO Patient seen and examined Events Low oxygen requirements On 4 liters nasal cannula No distress Labs and imaging reviewed Chest x-ray shows trace pleural effusions Not amenable to thoracentesis Management Supplemental oxygen Titrate to maintain sats 90% or above Incentive spirometry Continue antibiotics F/u cultures Bronchodilators Monitor renal function Monitor electrolytes Supplement as needed Pain control Avoid oversedation F/u general surgery DVT prophylaxis Dietary Evaluation Review Comments: 1. Advance TPN to meet at least 75% estimated needs 2. [place]ine[place] current POC Expected Outcomes/Goals: To meet >75% estimated needs Fu 2-3 days Plan discussed with: Patient MIK COLLAZO MD Feb 07, 2025 14:46
--- NOTE | 2025-02-07 22:16 | DVHPN2 ---
Progress Note - Dictate Date Seen: Feb 06, 2025 Medical Necessity Reason Pt with a Central, PICC or Fol: No Subjective Patient was seen and evaluated in follow up. Patient is on 4 LPM NC. Transthoracic echocardiogram reveals EF 75% with septal hypertrophy and RVSP 48 mmHg. CL 90, CO2 >40, T bili <0.2. Telemetry reviewed. vital signs Vital Sign Date Time Temp Pulse Resp B/P (MAP) Pulse Ox O2 Delivery O2 Flow Rate FiO2 02/07/25 21:26 69 18 100 02/07/25 21:20 Nasal Cannula* 4 36 02/07/25 17:17 127/57 02/07/25 17:15 98.0 98.0 Total Intake and Output 02/06/25 02/06/25 02/07/25 15:00 23:00 07:00 Intake Total 100 ml 1710 ml 820 ml Output Total 4410 ml 3550 ml Balance 100 ml -2700 ml -2730 ml medications Current Medications Medications Dose Ordered Sig/Vincent Route Start Time Stop Time Status Last Admin Dose Admin Warfarin Sodium RX PROTOCOL PER PHARMACY PO 01/15/25 01:45 Cancel Acetaminophen/ Hydrocodone Bitart 1 tab Q4HP PRN PO 01/15/25 01:45 Hold 02/05/25 13:54 1 TAB Ondansetron HCl 4 mg Q4HP PRN IV 01/15/25 01:45 02/07/25 17:17 4 MG Docusate Sodium 100 mg BIDPRN PRN PO 01/15/25 01:45 Acetaminophen 650 mg Q6HP PRN PO 01/15/25 01:45 Nitroglycerin 0.4 mg Q5MINP PRN SL 01/15/25 01:45 Pantoprazole Sodium 40 mg BID IV 01/15/25 10:00 02/07/25 09:04 40 MG Amino Acids 0 ml @ 0 mls/hr PER PHARMACY IV 01/16/25 13:15 Sodium Chloride 10 ml QSHIFT@ IV 01/16/25 22:00 02/07/25 09:05 10 ML Hydralazine HCl 10 mg Q6HP PRN IV 01/16/25 20:00 Lorazepam 0.5 mg Q6HP PRN IV 01/17/25 07:45 02/07/25 20:25 0.5 MG Diagnostic Test (Pha) 1 strip Q6HR 01/17/25 18:00 02/07/25 17:23 1 STRIP Insulin Human Regular FOLLOW SLIDING SCALE Q6HR SC 01/17/25 18:00 02/07/25 17:24 4 UNITS Dextrose 50 ml UD IV 01/17/25 18:00 Metoprolol Tartrate 2.5 mg Q6HPRN PRN IV 01/19/25 13:00 Potassium Chloride 100 ml @ 50 mls/hr Q2H IV 01/26/25 17:30 01/26/25 21:29 UNV Fluconazole 100 ml @ 100 mls/hr 10,11 IV 02/01/25 10:00 02/07/25 10:45 100 MLS/HR Albuterol 2.5 mg Q4HR NEB 02/03/25 06:00 02/07/25 21:19 2.5 MG Ipratropium [place] 0.5 mg Q4HR NEB 02/03/25 06:00 02/07/25 21:20 0.5 MG Albuterol 2.5 mg Q2HPRN PRN NEB 02/04/25 12:00 Ipratropium [place] 0.5 mg Q2HPRN PRN NEB 02/04/25 12:00 Acetaminophen/ Hydrocodone Bitart 1 tab Q4HPRN PRN PO 02/05/25 11:45 02/07/25 17:18 1 TAB Ipratropium [place] 0.5 mg Q4HR NEB 02/05/25 14:00 Cancel Megestrol Acetate 400 mg DAILY PO 02/05/25 12:00 02/07/25 09:04 400 MG Enoxaparin Sodium 65 mg Q12HR SC 02/05/25 22:00 02/07/25 09:04 65 MG Furosemide 20 mg BIDD IV 02/05/25 18:00 02/07/25 17:17 20 MG Empaglifozin 10 mg DAILY PO 02/06/25 10:00 02/07/25 09:05 10 MG Fat Emulsion Intravenous 200 ml/Sodium Chloride 120 meq/ Potassium Chloride 80 meq/ Magnesium Sulfate 14 meq/ Multivitamins 10 ml/Chromium/ Copper/Manganese/ Zinc 1 ml/Insulin Human Regular 47 units/Amino Acids/ Dextrose 1,584.97 ml @ 65 mls/hr [id number] IV 02/07/25 22:00 02/08/25 21:59 objective GENERAL: Alert and oriented x 3. No acute distress. EYES: PERRL, EOMI. Anicteric. HENT: Moist mucous membranes. LUNGS: Diminished breath sounds. CARDIOVASCULAR: Regular rate and rhythm. ABDOMEN: Soft, non-tender and non-distended. EXTREMITIES: No edema. NEUROLOGIC: No focal neurological deficits. SKIN: Warm, dry. laboratory and microbiology Laboratory Tests 02/07/25 09:05 02/04/25 08:10 Test 02/07/25 09:05 Range/Units Serum Glucose 174 H 74-106 mg/dL Problem List Acute decompensated HFpEF, NYHA class III. Paroxysmal Atrial fibrillation, Stage 3a (on Xarelto). Hypertension. Pneumoperitoneum. Sepsis. History of abdominal aortic aneurysm. Pulmonary hypertension. Type 2 diabetes mellitus. Morbid obesity. Assessment/Plan Continued all current supportive medical care. [place] for pain management. DVT and GI prophylactics. Diuretics with Lasix. IV Hydralazine for SBP >170. Metoprolol. Nitro SL. Additional plan as per the hospital course. Dietary Evaluation Review Comments: 1. Advance TPN to meet at least 75% estimated needs 2. Contineu current POC Expected Outcomes/Goals: To meet >75% estimated needs Fu 2-3 days Plan discussed with: Patient KRISTIN JOSEPH MD Feb 07, 2025 22:16
--- NOTE | 2025-02-07 22:17 | DVHPN2 ---
Progress Note - Dictate Date Seen: Feb 07, 2025 Medical Necessity Reason Pt with a Central, PICC or Fol: No Subjective Patient was seen and evaluated in follow up. Patient is on 4 LPM NC. Patient is complaining of SOB. CO2 >40. Patient receiving TPN for nutritional support. Telemetry reviewed. vital signs Vital Sign Date Time Temp Pulse Resp B/P (MAP) Pulse Ox O2 Delivery O2 Flow Rate FiO2 02/07/25 21:26 69 18 100 02/07/25 21:20 Nasal Cannula* 4 36 02/07/25 17:17 127/57 02/07/25 17:15 98.0 98.0 Total Intake and Output 02/06/25 02/06/25 02/07/25 15:00 23:00 07:00 Intake Total 100 ml 1710 ml 820 ml Output Total 4410 ml 3550 ml Balance 100 ml -2700 ml -2730 ml medications Current Medications Medications Dose Ordered Sig/Vincent Route Start Time Stop Time Status Last Admin Dose Admin Warfarin Sodium RX PROTOCOL PER PHARMACY PO 01/15/25 01:45 Cancel Acetaminophen/ Hydrocodone Bitart 1 tab Q4HP PRN PO 01/15/25 01:45 Hold 02/05/25 13:54 1 TAB Ondansetron HCl 4 mg Q4HP PRN IV 01/15/25 01:45 02/07/25 17:17 4 MG Docusate Sodium 100 mg BIDPRN PRN PO 01/15/25 01:45 Acetaminophen 650 mg Q6HP PRN PO 01/15/25 01:45 Nitroglycerin 0.4 mg Q5MINP PRN SL 01/15/25 01:45 Pantoprazole Sodium 40 mg BID IV 01/15/25 10:00 02/07/25 09:04 40 MG Amino Acids 0 ml @ 0 mls/hr PER PHARMACY IV 01/16/25 13:15 Sodium Chloride 10 ml QSHIFT@ IV 01/16/25 22:00 02/07/25 09:05 10 ML Hydralazine HCl 10 mg Q6HP PRN IV 01/16/25 20:00 Lorazepam 0.5 mg Q6HP PRN IV 01/17/25 07:45 02/07/25 20:25 0.5 MG Diagnostic Test (Pha) 1 strip Q6HR 01/17/25 18:00 02/07/25 17:23 1 STRIP Insulin Human Regular FOLLOW SLIDING SCALE Q6HR SC 01/17/25 18:00 02/07/25 17:24 4 UNITS Dextrose 50 ml UD IV 01/17/25 18:00 Metoprolol Tartrate 2.5 mg Q6HPRN PRN IV 01/19/25 13:00 Potassium Chloride 100 ml @ 50 mls/hr Q2H IV 01/26/25 17:30 01/26/25 21:29 UNV Fluconazole 100 ml @ 100 mls/hr 10,11 IV 02/01/25 10:00 02/07/25 10:45 100 MLS/HR Albuterol 2.5 mg Q4HR NEB 02/03/25 06:00 02/07/25 21:19 2.5 MG Ipratropium [place] 0.5 mg Q4HR NEB 02/03/25 06:00 02/07/25 21:20 0.5 MG Albuterol 2.5 mg Q2HPRN PRN NEB 02/04/25 12:00 Ipratropium [place] 0.5 mg Q2HPRN PRN NEB 02/04/25 12:00 Acetaminophen/ Hydrocodone Bitart 1 tab Q4HPRN PRN PO 02/05/25 11:45 02/07/25 17:18 1 TAB Ipratropium [place] 0.5 mg Q4HR NEB 02/05/25 14:00 Cancel Megestrol Acetate 400 mg DAILY PO 02/05/25 12:00 02/07/25 09:04 400 MG Enoxaparin Sodium 65 mg Q12HR SC 02/05/25 22:00 02/07/25 09:04 65 MG Furosemide 20 mg BIDD IV 02/05/25 18:00 02/07/25 17:17 20 MG Empaglifozin 10 mg DAILY PO 02/06/25 10:00 02/07/25 09:05 10 MG Fat Emulsion Intravenous 200 ml/Sodium Chloride 120 meq/ Potassium Chloride 80 meq/ Magnesium Sulfate 14 meq/ Multivitamins 10 ml/Chromium/ Copper/Manganese/ Zinc 1 ml/Insulin Human Regular 47 units/Amino Acids/ Dextrose 1,584.97 ml @ 65 mls/hr [id number] IV 02/07/25 22:00 02/08/25 21:59 objective GENERAL: Alert and oriented x 3. No acute distress. EYES: PERRL, EOMI. Anicteric. HENT: Moist mucous membranes. LUNGS: Diminished breath sounds. CARDIOVASCULAR: Regular rate and rhythm. ABDOMEN: Soft, non-tender and non-distended. EXTREMITIES: No edema. NEUROLOGIC: No focal neurological deficits. SKIN: Warm, dry. laboratory and microbiology Laboratory Tests 02/07/25 09:05 02/04/25 08:10 Test 02/07/25 09:05 Range/Units Serum Glucose 174 H 74-106 mg/dL Problem List Acute decompensated HFpEF, NYHA class III. Paroxysmal Atrial fibrillation, Stage 3a (on Xarelto). Hypertension. Pneumoperitoneum. Sepsis. History of abdominal aortic aneurysm. Pulmonary hypertension. Type 2 diabetes mellitus. Morbid obesity. Assessment/Plan Continued all current supportive medical care. [place] for pain management. DVT and GI prophylactics. Diuretics with Lasix. IV Hydralazine for SBP >170. Metoprolol. Nitro SL. Additional plan as per the hospital course. Dietary Evaluation Review Comments: 1. Advance TPN to meet at least 75% estimated needs 2. Contineu current POC Expected Outcomes/Goals: To meet >75% estimated needs Fu 2-3 days Plan discussed with: Patient KRISTIN JOSEPH MD Feb 07, 2025 22:17
[2025-02-07] MEDS: TPN PER PHARMACY IV NR (22:23)
[2025-02-08] VITALS (19 sets, daily range): BP systolic 113–123; BP diastolic 45–61; PULSE 61–76; RESP 16–20; TEMP 97.8–98.5; O2SAT 88–99
[2025-02-08 06:34] LABS: Alanine Aminotransferase 17 U/L (7-40); Albumin 3.3 g/dL (3.2-4.8); Alkaline Phosphatase 70 U/L (46-116); Anion Gap 3.99999 (5-15); Aspartate Aminotransferase 18 U/L (13-40); BUN/Creatinine Ratio 26.2 (10.0-20.0); Blood Urea Nitrogen 17 mg/dL (9-23); Calcium 9.4 mg/dL (8.7-10.4); Chloride 92 mmol/L (98-107); Glucose 133 mg/dL (74-106); Magnesium 2.1 mg/dL (1.6-2.6); Potassium 4.4 mmol/L (3.5-5.1); Sodium 136 mmol/L (136-145)
[2025-02-08 06:35] LABS: Carbon Dioxide > 40 mmol/L (20-31); Phosphorus 3.3 mg/dL (2.4-5.1)
[2025-02-08 06:36] LABS: Bilirubin, Total < 0.2 mg/dL (0.2-1.0)
--- NOTE | 2025-02-08 10:38 | DVHPN2 ---
Reviewed: Care Plan, H&P, Labs, Medications, Previous Orders, Radiology Changes from previous H/P or p: No Changes General: Per HPI Objective Vitals Vital Signs Date Time Temp Pulse Resp B/P (MAP) Pulse Ox O2 Delivery O2 Flow Rate FiO2 02/08/25 08:48 98.0 66 18 123/56 (78) 97 98.0 02/08/25 08:00 Nasal Cannula* 4 36 Intake/Output Intake and Output 02/08/25 07:00 Intake Total 1740 ml Output Total 6140 ml Balance -4400 ml Intake Oral 1500 ml IV Total 240 ml Output Urine Total 6100 ml Drainage Total 40 ml # Bowel Movements 1 General Appearance: Alert, Oriented X3, No acute distress HEENT: Atraumatic, PERRLA, EOMI, Mucous membr. moist/pink Neck: Supple Lungs: Clear to auscultation, Normal air movement Cardiovascular: Regular rate, Normal S1, Normal S2, No murmurs, Gallops, Rubs Abdomen: Normal bowel sounds, Soft, No tenderness Neuro: Cranial nerves 3-12 NL Psych/Mental Status: Mental status NL Medications Current Medications Medications Dose Ordered Sig/Vincent Route Start Time Stop Time Status Last Admin Dose Admin Warfarin Sodium RX PROTOCOL PER PHARMACY PO 01/15/25 01:45 Cancel Acetaminophen/ Hydrocodone Bitart 1 tab Q4HP PRN PO 01/15/25 01:45 Hold 02/05/25 13:54 1 TAB Ondansetron HCl 4 mg Q4HP PRN IV 01/15/25 01:45 02/08/25 09:03 4 MG Docusate Sodium 100 mg BIDPRN PRN PO 01/15/25 01:45 Acetaminophen 650 mg Q6HP PRN PO 01/15/25 01:45 Nitroglycerin 0.4 mg Q5MINP PRN SL 01/15/25 01:45 Pantoprazole Sodium 40 mg BID IV 01/15/25 10:00 02/08/25 09:02 40 MG Amino Acids 0 ml @ 0 mls/hr PER PHARMACY IV 01/16/25 13:15 Sodium Chloride 10 ml QSHIFT@10,22 IV 01/16/25 22:00 02/08/25 09:03 10 ML Hydralazine HCl 10 mg Q6HP PRN IV 01/16/25 20:00 Lorazepam 0.5 mg Q6HP PRN IV 01/17/25 07:45 02/08/25 06:05 0.5 MG Diagnostic Test (Pha) 1 strip Q6HR 01/17/25 18:00 02/08/25 05:52 1 STRIP Insulin Human Regular FOLLOW SLIDING SCALE Q6HR SC 01/17/25 18:00 02/08/25 05:53 2 UNITS Dextrose 50 ml UD IV 01/17/25 18:00 Metoprolol Tartrate 2.5 mg Q6HPRN PRN IV 01/19/25 13:00 Potassium Chloride 100 ml @ 50 mls/hr Q2H IV 01/26/25 17:30 01/26/25 21:29 UNV Fluconazole 100 ml @ 100 mls/hr IV 02/01/25 10:00 02/08/25 09:03 100 MLS/HR Albuterol 2.5 mg Q4HR NEB 02/03/25 06:00 02/08/25 07:07 2.5 MG Ipratropium [place] 0.5 mg Q4HR NEB 02/03/25 06:00 02/08/25 07:07 0.5 MG Albuterol 2.5 mg Q2HPRN PRN NEB 02/04/25 12:00 Ipratropium [place] 0.5 mg Q2HPRN PRN NEB 02/04/25 12:00 Acetaminophen/ Hydrocodone Bitart 1 tab Q4HPRN PRN PO 02/05/25 11:45 02/08/25 09:03 1 TAB Ipratropium [place] 0.5 mg Q4HR NEB 02/05/25 14:00 Cancel Megestrol Acetate 400 mg DAILY PO 02/05/25 12:00 02/08/25 09:03 400 MG Enoxaparin Sodium 65 mg Q12HR SC 02/05/25 22:00 02/08/25 09:04 65 MG Furosemide 20 mg BIDD IV 02/05/25 18:00 02/08/25 05:52 20 MG Empaglifozin 10 mg DAILY PO 02/06/25 10:00 02/08/25 09:03 10 MG Fat Emulsion Intravenous 200 ml/Sodium Chloride 120 meq/ Potassium Chloride 80 meq/ Magnesium Sulfate 14 meq/ Multivitamins 10 ml/Chromium/ Copper/Manganese/ Zinc 1 ml/Insulin Human Regular 47 units/Amino Acids/ Dextrose 1,584.97 ml @ 65 mls/hr [id number] IV 02/07/25 22:00 02/08/25 21:59 02/07/25 22:23 65 MLS/HR Laboratory Results Laboratory Tests 02/04/25 08:10 02/08/25 05:17 Chemistry Test 02/08/25 05:17 Albumin 3.3 g/dL (3.2-4.8) Calcium Level 9.4 mg/dL (8.7-10.4) Magnesium Level 2.1 mg/dL (1.6-2.6) Phosphorus Level 3.3 mg/dL (2.4-5.1) Total Protein 7.0 g/dL (5.7-8.2) LFT Test 02/08/25 05:17 Alanine Aminotransferase (ALT) 17 U/L (7-40) Alkaline Phosphatase 70 U/L (46-116) Aspartate Amino Transferase (AST) 18 U/L (13-40) Total Bilirubin < 0.2 mg/dL (0.2-1.0) L Urinalysis Test 01/15/25 01:59 Urine Color Light-yellow (Yellow) Urine Clarity Clear (Clear) Urine pH 6.0 (5.0-9.0) Urine Specific [place] 1.018 (1.001-1.035) Urine Protein Negative (Negative) Urine Ketones Negative (Negative) Urine Blood Negative /uL (Negative) Urine Nitrite Negative (Negative) Urine Bilirubin Negative (Negative) Urine Urobilinogen Normal mg/dL (Negative) Urine Leukocyte Esterase Negative /uL (Negative) Urine RBC <1 /hpf (0 - 3) Urine Microscopic WBC /HPF (0-3) Urine Squamous Epithelial Cells None seen /hpf (<5) Urine Bacteria None seen /hpf (None Seen) Urine Glucose 4+ mg/dL (Normal) H Microbiology Microbiology Date/Time Source Procedure Growth Status 01/25/25 09:35 Aspirate Gram Stain - Final Complete 01/25/25 09:35 Body Fluid Culture - Final Escherichia coli Presumptive Zena[place] albicans Complete 01/15/25 00:28 Blood Blood Culture - Final NO GROWTH AFTER 5 DAYS OF INCUBATION. Complete Labs and/or images reviewed: Labs reviewed by me, Image(s) reviewed by me Assessment/Plan Assessment/Plan Acute hypoxic respiratory failure: Oxygen by nasal cannula, chest x-ray, consult for Chronic hypercarbic respiratory failure Dependence on home oxygen Intractable abdominal pain, continue Zosyn and doxycycline Perforated viscus and pneumoperitoneum, with history of gastric bypass, conservative management consult by Dr. Bird appreciated Left upper quadrant abscess status post drainage Lactic acidosis, resolved [place] in the abdominal abscess aspirate: Continue fluconazole Sepsis due to above Acute respiratory distress Diabetes with hyperglycemia AFib on Coumadin Morbid obesity Obstructive sleep apnea: CPAP Acute hypokalemia: Replace potassium Lipase elevated, mild Nutrition TPN Plan discussed with: Patient My Orders Orders - PROMISE CASTANO MD Procedure Category Date Status Time Regular Diet DIET 02/07/25 Transmitted Lunch Date of Service: Feb 08, 2025 Billing Provider: PROMISE CASTANO MD Common Visit Codes: 44475-[id number] CARE 30-74 MIN PROMISE CASTANO MD Feb 08, 2025 10:38
[2025-02-08] MEDS: HYDROcodone-ACET 10/325MG TAB PO PRN (12:12)
--- NOTE | 2025-02-08 14:55 | DVHPN2 ---
Progress Note - Dictate Date Seen: Feb 08, 2025 Medical Necessity Reason Pt with a Central, PICC or Fol: No Subjective Patient was seen and evaluated in follow up. Patient is on 4 LPM NC. Patient remains short of breath. CO2 >40. Patient receiving TPN at 53 ml/hr for nutritional support. Telemetry reviewed. vital signs Vital Sign Date Time Temp Pulse Resp B/P (MAP) Pulse Ox O2 Delivery O2 Flow Rate FiO2 02/08/25 10:43 69 16 99 02/08/25 08:48 98.0 123/56 (78) 98.0 02/08/25 08:00 Nasal Cannula* 4 36 Total Intake and Output 02/07/25 02/07/25 02/08/25 15:00 23:00 07:00 Intake Total 200 ml 840 ml 700 ml Output Total 40 ml 2500 ml 3600 ml Balance 160 ml -1660 ml -2900 ml medications Current Medications Medications Dose Ordered Sig/Vincent Route Start Time Stop Time Status Last Admin Dose Admin Warfarin Sodium RX PROTOCOL PER PHARMACY PO 01/15/25 01:45 Cancel Ondansetron HCl 4 mg Q4HP PRN IV 01/15/25 01:45 02/08/25 09:03 4 MG Docusate Sodium 100 mg BIDPRN PRN PO 01/15/25 01:45 Acetaminophen 650 mg Q6HP PRN PO 01/15/25 01:45 Nitroglycerin 0.4 mg Q5MINP PRN SL 01/15/25 01:45 Pantoprazole Sodium 40 mg BID IV 01/15/25 10:00 02/08/25 09:02 40 MG Amino Acids 0 ml @ 0 mls/hr PER PHARMACY IV 01/16/25 13:15 Sodium Chloride 10 ml QSHIFT@10,22 IV 01/16/25 22:00 02/08/25 09:03 10 ML Hydralazine HCl 10 mg Q6HP PRN IV 01/16/25 20:00 Lorazepam 0.5 mg Q6HP PRN IV 01/17/25 07:45 02/08/25 12:14 0.5 MG Diagnostic Test (Pha) 1 strip Q6HR 01/17/25 18:00 02/08/25 12:14 1 STRIP Insulin Human Regular FOLLOW SLIDING SCALE Q6HR SC 01/17/25 18:00 02/08/25 12:19 4 UNITS Dextrose 50 ml UD IV 01/17/25 18:00 Metoprolol Tartrate 2.5 mg Q6HPRN PRN IV 01/19/25 13:00 Potassium Chloride 100 ml @ 50 mls/hr Q2H IV 01/26/25 17:30 01/26/25 21:29 UNV Fluconazole 100 ml @ 100 mls/hr 10,11 IV 02/01/25 10:00 02/08/25 12:14 100 MLS/HR Albuterol 2.5 mg Q4HR NEB 02/03/25 06:00 02/08/25 10:33 2.5 MG Ipratropium [place] 0.5 mg Q4HR NEB 02/03/25 06:00 02/08/25 10:33 0.5 MG Albuterol 2.5 mg Q2HPRN PRN NEB 02/04/25 12:00 Ipratropium [place] 0.5 mg Q2HPRN PRN NEB 02/04/25 12:00 Ipratropium [place] 0.5 mg Q4HR NEB 02/05/25 14:00 Cancel Megestrol Acetate 400 mg DAILY PO 02/05/25 12:00 02/08/25 09:03 400 MG Enoxaparin Sodium 65 mg Q12HR SC 02/05/25 22:00 02/08/25 09:04 65 MG Furosemide 20 mg BIDD IV 02/05/25 18:00 02/08/25 05:52 20 MG Empaglifozin 10 mg DAILY PO 02/06/25 10:00 02/08/25 09:03 10 MG Fat Emulsion Intravenous 200 ml/Sodium Chloride 120 meq/ Potassium Chloride 80 meq/ Magnesium Sulfate 14 meq/ Multivitamins 10 ml/Chromium/ Copper/Manganese/ Zinc 1 ml/Insulin Human Regular 47 units/Amino Acids/ Dextrose 1,584.97 ml @ 65 mls/hr [id number] IV 02/07/25 22:00 02/08/25 21:59 02/07/25 22:23 65 MLS/HR Acetaminophen/ Hydrocodone Bitart 1 tab Q4HP PRN PO 02/08/25 11:00 02/08/25 12:12 1 TAB Fat Emulsion Intravenous 100 ml/Sodium Chloride 120 meq/ Sodium Phosphate 20 meq/Potassium Chloride 40 meq/ Magnesium Sulfate 12 meq/ Multivitamins 10 ml/Chromium/ Copper/Manganese/ Zinc 1 ml/Insulin Human Regular 30 units/Amino Acids/ Dextrose 1,269.3 ml @ 53 mls/hr [id number] IV 02/08/25 22:00 02/09/25 21:59 objective GENERAL: Alert and oriented x 3. No acute distress. EYES: PERRL, EOMI. Anicteric. HENT: Moist mucous membranes. LUNGS: Diminished breath sounds. CARDIOVASCULAR: Regular rate and rhythm. ABDOMEN: Soft, non-tender and non-distended. EXTREMITIES: No edema. NEUROLOGIC: No focal neurological deficits. SKIN: Warm, dry. laboratory and microbiology Laboratory Tests 02/08/25 05:17 02/04/25 08:10 Test 02/08/25 05:17 Range/Units Serum Glucose 133 H 74-106 mg/dL Problem List Acute decompensated HFpEF, NYHA class III. Paroxysmal Atrial fibrillation, Stage 3a (on Xarelto). Hypertension. Pneumoperitoneum. Sepsis. History of abdominal aortic aneurysm. Pulmonary hypertension. Type 2 diabetes mellitus. Morbid obesity. Assessment/Plan Continued all current supportive medical care. [place] for pain management. DVT and GI prophylactics. Diuretics with Lasix. IV Hydralazine for SBP >170. Metoprolol. Nitro SL. Additional plan as per the hospital course. Dietary Evaluation Review Comments: 1. Advance TPN to meet at least 75% estimated needs 2. [place] current POC Expected Outcomes/Goals: To meet >75% estimated needs Fu 2-3 days Plan discussed with: Patient KRISTIN JOSEPH MD Feb 08, 2025 13:37
--- NOTE | 2025-02-08 16:45 | DVHPN2 ---
Progress Note Date Seen: Feb 08, 2025 Resident Creating Document: ARLEN RECIO RESIDENT Medical Necessity Reason Pt with a Central, PICC or Fol: No Subjective Review of Systems Patient is 74 years old male with past medical history of hypertension, diabetes mellitus, hyperlipidemia, atrial fibrillation, anemia presents to the ED with a complaint of near-syncope. Patient also had epigastric pain radiating to the chest and lower abdominal region. Pain was associated with the shortness of breaths and nausea which was getting worse and prompted the ER visit. CT scan of the abdomen and pelvis revealed- Status post gastric bypass with foci of free air adjacent to the stomach concerning for perforation at the surgical incision sites from the bypass versus due to ulceration of the stomach. There is moderate amount of free air along the midline anterior abdomen adjacent to the transverse colon. Critical Result: Pneumoperitoneum Patient was seen today for clinical evaluation. Labs with chart reviewed. Patient reports feeling better today. No acute distress noted. Patient was treated conservatively for pneumoperitoneum. On 01/25/2025-US/CT guided placement of 8 [place] pigtail drain into a perisplenic abscess with 230 mL purulent fluid aspirated. Objective vital signs Vital Sign Date Time Temp Pulse Resp B/P (MAP) Pulse Ox O2 Delivery O2 Flow Rate FiO2 02/08/25 14:10 76 16 99 02/08/25 13:00 98.4 113/46 (68) 98.4 02/08/25 08:00 Nasal Cannula* 4 36 Total Intake and Output 02/07/25 02/07/25 02/08/25 14:59 22:59 06:59 Intake Total 200 ml 840 ml 700 ml Output Total 40 ml 2500 ml 3600 ml Balance 160 ml -1660 ml -2900 ml medications Current Medications Medications Dose Ordered Sig/Vincent Route Start Time Stop Time Status Last Admin Dose Admin Warfarin Sodium RX PROTOCOL PER PHARMACY PO 01/15/25 01:45 Cancel Ondansetron HCl 4 mg Q4HP PRN IV 01/15/25 01:45 02/08/25 09:03 4 MG Docusate Sodium 100 mg BIDPRN PRN PO 01/15/25 01:45 Acetaminophen 650 mg Q6HP PRN PO 01/15/25 01:45 Nitroglycerin 0.4 mg Q5MINP PRN SL 01/15/25 01:45 Pantoprazole Sodium 40 mg BID IV 01/15/25 10:00 02/08/25 09:02 40 MG Amino Acids 0 ml @ 0 mls/hr PER PHARMACY IV 01/16/25 13:15 Sodium Chloride 10 ml QSHIFT@10,22 IV 01/16/25 22:00 02/08/25 09:03 10 ML Hydralazine HCl 10 mg Q6HP PRN IV 01/16/25 20:00 Lorazepam 0.5 mg Q6HP PRN IV 01/17/25 07:45 02/08/25 12:14 0.5 MG Diagnostic Test (Pha) 1 strip Q6HR 01/17/25 18:00 02/08/25 12:14 1 STRIP Insulin Human Regular FOLLOW SLIDING SCALE Q6HR SC 01/17/25 18:00 02/08/25 12:19 4 UNITS Dextrose 50 ml UD IV 01/17/25 18:00 Metoprolol Tartrate 2.5 mg Q6HPRN PRN IV 01/19/25 13:00 Potassium Chloride 100 ml @ 50 mls/hr Q2H IV 01/26/25 17:30 01/26/25 21:29 UNV Fluconazole 100 ml @ 100 mls/hr 10,11 IV 02/01/25 10:00 02/08/25 12:14 100 MLS/HR Albuterol 2.5 mg Q4HR NEB 02/03/25 06:00 02/08/25 14:00 2.5 MG Ipratropium [place] 0.5 mg Q4HR NEB 02/03/25 06:00 02/08/25 14:00 0.5 MG Albuterol 2.5 mg Q2HPRN PRN NEB 02/04/25 12:00 Ipratropium [place] 0.5 mg Q2HPRN PRN NEB 02/04/25 12:00 Ipratropium [place] 0.5 mg Q4HR NEB 02/05/25 14:00 Cancel Megestrol Acetate 400 mg DAILY PO 02/05/25 12:00 02/08/25 09:03 400 MG Enoxaparin Sodium 65 mg Q12HR SC 02/05/25 22:00 02/08/25 09:04 65 MG Furosemide 20 mg BIDD IV 02/05/25 18:00 02/08/25 05:52 20 MG Empaglifozin 10 mg DAILY PO 02/06/25 10:00 02/08/25 09:03 10 MG Fat Emulsion Intravenous 200 ml/Sodium Chloride 120 meq/ Potassium Chloride 80 meq/ Magnesium Sulfate 14 meq/ Multivitamins 10 ml/Chromium/ Copper/Manganese/ Zinc 1 ml/Insulin Human Regular 47 units/Amino Acids/ Dextrose 1,584.97 ml @ 65 mls/hr [id number] IV 02/07/25 22:00 02/08/25 21:59 02/07/25 22:23 65 MLS/HR Acetaminophen/ Hydrocodone Bitart 1 tab Q4HP PRN PO 02/08/25 11:00 02/08/25 12:12 1 TAB Fat Emulsion Intravenous 100 ml/Sodium Chloride 120 meq/ Sodium Phosphate 20 meq/Potassium Chloride 40 meq/ Magnesium Sulfate 12 meq/ Multivitamins 10 ml/Chromium/ Copper/Manganese/ Zinc 1 ml/Insulin Human Regular 30 units/Amino Acids/ Dextrose 1,269.3 ml @ 53 mls/hr [id number] IV 02/08/25 22:00 02/09/25 21:59 laboratory and microbiology Laboratory Tests 02/08/25 05:17 02/04/25 08:10 Test 02/08/25 05:17 Range/Units Serum Glucose 133 H 74-106 mg/dL Microbiology Date/Time Source Procedure Growth Status 01/25/25 09:35 Aspirate Gram Stain - Final Complete 01/25/25 09:35 Body Fluid Culture - Final Escherichia coli Presumptive Zenaida albicans Complete 01/15/25 00:28 Blood Blood Culture - Final NO GROWTH AFTER 5 DAYS OF INCUBATION. Complete Problem List/Assessment/Plan Problem List/Assessment/Plan Assessment/Plan Impression Acute hypoxemic respiratory failure likely due to pneumonia COPD- stable Sepsis likely due to pneumonia Pneumonia Gram-positive versus Gram negative Perforated viscus and pneumoperitoneum, with history of gastric bypass, conservative management by surgical team Left upper quadrant abscess status post drainage Lactic acidosis, resolved Morbid obesity Patient seen and examined Events Low oxygen requirements On 4 liters nasal cannula No distress Labs and imaging reviewed Chest x-ray shows trace pleural effusions Not amenable to thoracentesis Management Supplemental oxygen Titrate to maintain sats 90% or above Incentive spirometry Continue antibiotics F/u cultures Bronchodilators Monitor renal function Monitor electrolytes Supplement as needed Pain control Avoid oversedation F/u general surgery DVT prophylaxis Plan discussed with Dr. Malagon , nursing staff, Total time spent on patient evaluation, chart review, assessment and plan, discussion discussion >35 minutes Plan discussed with: Patient, Other (RN) Dietary Evaluation Review Comments: 1. Advance TPN to meet at least 75% estimated needs 2. Contineu current POC Expected Outcomes/Goals: To meet >75% estimated needs Fu 2-3 days Date of Service: Feb 08, 2025 Billing Provider: MIK COLLAZO MD Common Visit Codes: NOT BILLABLE ARLEN RECIO RESIDENT Feb 08, 2025 16:44 IMK COLLAZO MD Feb 21, 2025 13:39
[2025-02-08] MEDS: TPN PER PHARMACY IV NR (21:39)
[2025-02-09] VITALS (19 sets, daily range): BP systolic 120–130; BP diastolic 52–66; PULSE 59–84; RESP 16–22; TEMP 97.6–98.5; O2SAT 90–100
[2025-02-09 11:07] LABS: Potassium 4.5 mmol/L (3.5-5.1)
[2025-02-09 11:08] LABS: Calcium 8.8 mg/dL (8.7-10.4)
[2025-02-09 11:13] LABS: BUN/Creatinine Ratio 32.8 (10.0-20.0)
[2025-02-09 11:14] LABS: Albumin 3.4 g/dL (3.2-4.8); Magnesium 2.2 mg/dL (1.6-2.6)
[2025-02-09 11:15] LABS: Phosphorus 3.8 mg/dL (2.4-5.1)
--- NOTE | 2025-02-09 11:40 | DVHPN2 ---
Reviewed: Care Plan, H&P, Labs, Medications, Previous Orders, Radiology Changes from previous H/P or p: No Changes General: Per HPI Objective Vitals Vital Signs Date Time Temp Pulse Resp B/P (MAP) Pulse Ox O2 Delivery O2 Flow Rate FiO2 02/09/25 09:44 62 16 100 02/09/25 09:37 Nasal Cannula 4.0 02/09/25 09:37 36 02/09/25 09:00 98.1 130/61 (84) 98.1 Intake/Output Intake and Output 02/09/25 07:00 Intake Total 1060 ml Output Total 6600 ml Balance -5540 ml Intake Oral 600 ml IV Total 460 ml Output Urine Total 6600 ml General Appearance: Alert, Oriented X3, No acute distress HEENT: Atraumatic, PERRLA, EOMI, Mucous membr. moist/pink Neck: Supple Lungs: Clear to auscultation, Normal air movement Cardiovascular: Regular rate, Normal S1, Normal S2, No murmurs, Gallops, Rubs Abdomen: Normal bowel sounds, Soft, No tenderness Neuro: Cranial nerves 3-12 NL Psych/Mental Status: Mental status NL Medications Current Medications Medications Dose Ordered Sig/Vincent Route Start Time Stop Time Status Last Admin Dose Admin Warfarin Sodium RX PROTOCOL PER PHARMACY PO 01/15/25 01:45 Cancel Ondansetron HCl 4 mg Q4HP PRN IV 01/15/25 01:45 02/09/25 09:12 4 MG Docusate Sodium 100 mg BIDPRN PRN PO 01/15/25 01:45 Acetaminophen 650 mg Q6HP PRN PO 01/15/25 01:45 Nitroglycerin 0.4 mg Q5MINP PRN SL 01/15/25 01:45 Pantoprazole Sodium 40 mg BID IV 01/15/25 10:00 02/09/25 09:13 40 MG Amino Acids 0 ml @ 0 mls/hr PER PHARMACY IV 01/16/25 13:15 Sodium Chloride 10 ml QSHIFT@10,22 IV 01/16/25 22:00 02/09/25 09:13 10 ML Hydralazine HCl 10 mg Q6HP PRN IV 01/16/25 20:00 Lorazepam 0.5 mg Q6HP PRN IV 01/17/25 07:45 02/08/25 20:28 0.5 MG Diagnostic Test (Pha) 1 strip Q6HR 01/17/25 18:00 02/09/25 05:40 1 STRIP Insulin Human Regular FOLLOW SLIDING SCALE Q6HR SC 01/17/25 18:00 02/09/25 05:40 4 UNITS Dextrose 50 ml UD IV 01/17/25 18:00 Metoprolol Tartrate 2.5 mg Q6HPRN PRN IV 01/19/25 13:00 Potassium Chloride 100 ml @ 50 mls/hr Q2H IV 01/26/25 17:30 01/26/25 21:29 UNV Fluconazole 100 ml @ 100 mls/hr 10,11 IV 02/01/25 10:00 02/09/25 09:13 100 MLS/HR Albuterol 2.5 mg Q4HR NEB 02/03/25 06:00 02/09/25 09:37 2.5 MG Ipratropium [place] 0.5 mg Q4HR NEB 02/03/25 06:00 02/09/25 09:37 0.5 MG Albuterol 2.5 mg Q2HPRN PRN NEB 02/04/25 12:00 Ipratropium [place] 0.5 mg Q2HPRN PRN NEB 02/04/25 12:00 Ipratropium [place] 0.5 mg Q4HR NEB 02/05/25 14:00 Cancel Megestrol Acetate 400 mg DAILY PO 02/05/25 12:00 02/09/25 09:12 400 MG Enoxaparin Sodium 65 mg Q12HR SC 02/05/25 22:00 02/09/25 09:13 65 MG Furosemide 20 mg BIDD IV 02/05/25 18:00 02/09/25 05:41 20 MG Empaglifozin 10 mg DAILY PO 02/06/25 10:00 02/09/25 09:11 10 MG Acetaminophen/ Hydrocodone Bitart 1 tab Q4HP PRN PO 02/08/25 11:00 02/09/25 09:12 1 TAB Fat Emulsion Intravenous 100 ml/Sodium Chloride 120 meq/ Sodium Phosphate 20 meq/Potassium Chloride 40 meq/ Magnesium Sulfate 12 meq/ Multivitamins 10 ml/Chromium/ Copper/Manganese/ Zinc 1 ml/Insulin Human Regular 30 units/Amino Acids/ Dextrose 1,269.3 ml @ 53 mls/hr [id number] IV 02/08/25 22:00 02/09/25 21:59 02/09/25 01:50 53 MLS/HR Laboratory Results Laboratory Tests 02/04/25 08:10 02/09/25 08:18 Chemistry Test 02/09/25 08:18 Albumin 3.4 g/dL (3.2-4.8) Calcium Level 8.8 mg/dL (8.7-10.4) Magnesium Level 2.2 mg/dL (1.6-2.6) Phosphorus Level 3.8 mg/dL (2.4-5.1) Urinalysis Test 01/15/25 01:59 Urine Color Light-yellow (Yellow) Urine Clarity Clear (Clear) Urine pH 6.0 (5.0-9.0) Urine Specific [place] 1.018 (1.001-1.035) Urine Protein Negative (Negative) Urine Ketones Negative (Negative) Urine Blood Negative /uL (Negative) Urine Nitrite Negative (Negative) Urine Bilirubin Negative (Negative) Urine Urobilinogen Normal mg/dL (Negative) Urine Leukocyte Esterase Negative /uL (Negative) Urine RBC <1 /hpf (0 - 3) Urine Microscopic WBC /HPF (0-3) Urine Squamous Epithelial Cells None seen /hpf (<5) Urine Bacteria None seen /hpf (None Seen) Urine Glucose 4+ mg/dL (Normal) H Microbiology Microbiology Date/Time Source Procedure Growth Status 01/25/25 09:35 Aspirate Gram Stain - Final Complete 01/25/25 09:35 Body Fluid Culture - Final Escherichia coli Presumptive Zenaida albicans Complete 01/15/25 00:28 Blood Blood Culture - Final NO GROWTH AFTER 5 DAYS OF INCUBATION. Complete Labs and/or images reviewed: Labs reviewed by me, Image(s) reviewed by me Assessment/Plan Assessment/Plan Acute hypoxic respiratory failure: Oxygen by nasal cannula, chest x-ray, consult for Chronic hypercarbic respiratory failure Dependence on home oxygen Intractable abdominal pain, continue Zosyn and doxycycline Perforated viscus and pneumoperitoneum, with history of gastric bypass, conservative management consult by Dr. Bird appreciated Left upper quadrant abscess status post drainage Lactic acidosis, resolved Zenaida in the abdominal abscess aspirate: Continue fluconazole Sepsis due to above Acute respiratory distress Diabetes with hyperglycemia AFib on Coumadin Morbid obesity Obstructive sleep apnea: CPAP Acute hypokalemia: Replace potassium Lipase elevated, mild Nutrition TPN Continue current management Plan discussed with: Patient My Orders Orders - PROMISE CASTANO MD Procedure Category Date Status Time Mrsa Screen OSCAR 02/09/25 Uncollected 07:01 Date of Service: Feb 09, 2025 Billing Provider: PROMISE CASTANO MD Common Visit Codes: [id number] INP/OBS CARE(HIGH) PROMISE CASTANO MD Feb 09, 2025 11:40
--- NOTE | 2025-02-09 17:29 | DVHPN2 ---
Progress Note Date Seen: Feb 09, 2025 Resident Creating Document: ARLEN RECIO RESIDENT Medical Necessity Reason Pt with a Central, PICC or Fol: No Subjective Review of Systems Patient is 74 years old male with past medical history of hypertension, diabetes mellitus, hyperlipidemia, atrial fibrillation, anemia presents to the ED with a complaint of near-syncope. Patient also had epigastric pain radiating to the chest and lower abdominal region. Pain was associated with the shortness of breaths and nausea which was getting worse and prompted the ER visit. CT scan of the abdomen and pelvis revealed- Status post gastric bypass with foci of free air adjacent to the stomach concerning for perforation at the surgical incision sites from the bypass versus due to ulceration of the stomach. There is moderate amount of free air along the midline anterior abdomen adjacent to the transverse colon. Critical Result: Pneumoperitoneum Patient was seen today for clinical evaluation. Lab and chart reviewed. Patient on [place] O2 4 L/min. Denied any respiratory distress. Reports feeling much better today. As per patient he uses BiPAP at home and also at home oxygen. Objective vital signs Vital Sign Date Time Temp Pulse Resp B/P (MAP) Pulse Ox O2 Delivery O2 Flow Rate FiO2 02/09/25 17:11 121/52 02/09/25 14:34 63 18 99 02/09/25 14:27 Nasal Cannula 4.0 02/09/25 14:27 36 02/09/25 13:00 97.8 97.8 Total Intake and Output 02/08/25 02/08/25 02/09/25 15:00 23:00 07:00 Intake Total 400 ml 60 ml 600 ml Output Total 3800 ml 2800 ml Balance 400 ml -3740 ml -2200 ml medications Current Medications Medications Dose Ordered Sig/Vincent Route Start Time Stop Time Status Last Admin Dose Admin Warfarin Sodium RX PROTOCOL PER PHARMACY PO 01/15/25 01:45 Cancel Ondansetron HCl 4 mg Q4HP PRN IV 01/15/25 01:45 02/09/25 13:40 4 MG Docusate Sodium 100 mg BIDPRN PRN PO 01/15/25 01:45 Acetaminophen 650 mg Q6HP PRN PO 01/15/25 01:45 Nitroglycerin 0.4 mg Q5MINP PRN SL 01/15/25 01:45 Pantoprazole Sodium 40 mg BID IV 01/15/25 10:00 02/09/25 09:13 40 MG Amino Acids 0 ml @ 0 mls/hr PER PHARMACY IV 01/16/25 13:15 Sodium Chloride 10 ml QSHIFT@10,22 IV 01/16/25 22:00 02/09/25 09:13 10 ML Hydralazine HCl 10 mg Q6HP PRN IV 01/16/25 20:00 Lorazepam 0.5 mg Q6HP PRN IV 01/17/25 07:45 02/08/25 20:28 0.5 MG Diagnostic Test (Pha) 1 strip Q6HR 01/17/25 18:00 02/09/25 05:40 1 STRIP Insulin Human Regular FOLLOW SLIDING SCALE Q6HR SC 01/17/25 18:00 02/09/25 11:52 2 UNITS Dextrose 50 ml UD IV 01/17/25 18:00 Metoprolol Tartrate 2.5 mg Q6HPRN PRN IV 01/19/25 13:00 Potassium Chloride 100 ml @ 50 mls/hr Q2H IV 01/26/25 17:30 01/26/25 21:29 UNV Fluconazole 100 ml @ 100 mls/hr 10,11 IV 02/01/25 10:00 02/09/25 09:13 100 MLS/HR Albuterol 2.5 mg Q4HR NEB 02/03/25 06:00 02/09/25 14:27 2.5 MG Ipratropium [place] 0.5 mg Q4HR NEB 02/03/25 06:00 02/09/25 14:27 0.5 MG Albuterol 2.5 mg Q2HPRN PRN NEB 02/04/25 12:00 Ipratropium [place] 0.5 mg Q2HPRN PRN NEB 02/04/25 12:00 Ipratropium [place] 0.5 mg Q4HR NEB 02/05/25 14:00 Cancel Megestrol Acetate 400 mg DAILY PO 02/05/25 12:00 02/09/25 09:12 400 MG Enoxaparin Sodium 65 mg Q12HR SC 02/05/25 22:00 02/09/25 09:13 65 MG Furosemide 20 mg BIDD IV 02/05/25 18:00 02/09/25 17:11 20 MG Empaglifozin 10 mg DAILY PO 02/06/25 10:00 02/09/25 09:11 10 MG Acetaminophen/ Hydrocodone Bitart 1 tab Q4HP PRN PO 02/08/25 11:00 02/09/25 13:45 1 TAB Fat Emulsion Intravenous 100 ml/Sodium Chloride 120 meq/ Sodium Phosphate 20 meq/Potassium Chloride 40 meq/ Magnesium Sulfate 12 meq/ Multivitamins 10 ml/Chromium/ Copper/Manganese/ Zinc 1 ml/Insulin Human Regular 30 units/Amino Acids/ Dextrose 1,269.3 ml @ 53 mls/hr [id number] IV 02/08/25 22:00 02/09/25 21:59 02/09/25 01:50 53 MLS/HR Fat Emulsion Intravenous 100 ml/Sodium Chloride 140 meq/ Sodium Phosphate 10 meq/Potassium Chloride 20 meq/ Magnesium Sulfate 12 meq/ Multivitamins 10 ml/Chromium/ Copper/Manganese/ Zinc 1 ml/Insulin Human Regular 20 units/Amino Acids/ Dextrose 1,111.7 ml @ 46 mls/hr [id number] IV 02/09/25 22:00 02/10/25 21:59 Amiodarone HCl 200 mg Q12HR PO 02/09/25 22:00 laboratory and microbiology Laboratory Tests 02/09/25 08:18 02/04/25 08:10 Test 02/09/25 08:18 Range/Units Serum Glucose 172 H 74-106 mg/dL Microbiology Date/Time Source Procedure Growth Status 01/25/25 09:35 Aspirate Gram Stain - Final Complete 01/25/25 09:35 Body Fluid Culture - Final Escherichia coli Presumptive Zenaida albicans Complete 01/15/25 00:28 Blood Blood Culture - Final NO GROWTH AFTER 5 DAYS OF INCUBATION. Complete Problem List/Assessment/Plan Problem List/Assessment/Plan Assessment/Plan Impression Acute hypoxemic respiratory failure likely due to pneumonia COPD- stable Sepsis likely due to pneumonia Pneumonia Gram-positive versus Gram negative Perforated viscus and pneumoperitoneum, with history of gastric bypass, conservative management by surgical team Left upper quadrant abscess status post drainage Lactic acidosis, resolved Morbid obesity Patient seen and examined Events patient Reports feeling better today On 4 liters nasal cannula No distress Labs and imaging reviewed Management Supplemental oxygen Titrate to maintain sats 90% or above Incentive spirometry Continue antibiotics F/u cultures Bronchodilators Monitor renal function Monitor electrolytes Supplement as needed Pain control F/u general surgery DVT prophylaxis Plan discussed with Dr. Malagon , nursing staff, Total time spent on patient evaluation, chart review, assessment and plan, discussion discussion >35 minutes Plan discussed with: Patient, Other (RN) Dietary Evaluation Review Comments: 1. Advance TPN to meet at least 75% estimated needs 2. Contineu current POC Expected Outcomes/Goals: To meet >75% estimated needs Fu 2-3 days Date of Service: Feb 09, 2025 Billing Provider: MIK COLLAZO MD Common Visit Codes: NOT BILLABLE ARLEN RECIO RESIDENT Feb 09, 2025 17:29 MIK COLLAZO MD Feb 11, 2025 14:45
[2025-02-09] MEDS: AMIODARONE HCL 200 MG TAB PO SCH (21:51)
[2025-02-09] MEDS: TPN PER PHARMACY IV NR (22:15)
--- NOTE | 2025-02-09 23:45 | DVHPN2 ---
Progress Note - Dictate Date Seen: Feb 09, 2025 Medical Necessity Reason Pt with a Central, PICC or Fol: No Subjective Patient was seen and evaluated in follow up. PPatietn is on 4 LPM NC. Patient reports SOB is slowly improving. Patient is noncompliant with fluid restrictions. Also refusing to be turned. Telemetry reviewed. vital signs Vital Sign Date Time Temp Pulse Resp B/P (MAP) Pulse Ox O2 Delivery O2 Flow Rate FiO2 02/09/25 09:44 62 16 100 02/09/25 09:37 Nasal Cannula 4.0 02/09/25 09:37 36 02/09/25 09:00 98.1 130/61 (84) 98.1 Total Intake and Output 02/08/25 02/08/25 02/09/25 15:00 23:00 07:00 Intake Total 400 ml 60 ml 600 ml Output Total 3800 ml 2800 ml Balance 400 ml -3740 ml -2200 ml medications Current Medications Medications Dose Ordered Sig/Vincent Route Start Time Stop Time Status Last Admin Dose Admin Warfarin Sodium RX PROTOCOL PER PHARMACY PO 01/15/25 01:45 Cancel Ondansetron HCl 4 mg Q4HP PRN IV 01/15/25 01:45 02/09/25 09:12 4 MG Docusate Sodium 100 mg BIDPRN PRN PO 01/15/25 01:45 Acetaminophen 650 mg Q6HP PRN PO 01/15/25 01:45 Nitroglycerin 0.4 mg Q5MINP PRN SL 01/15/25 01:45 Pantoprazole Sodium 40 mg BID IV 01/15/25 10:00 02/09/25 09:13 40 MG Amino Acids 0 ml @ 0 mls/hr PER PHARMACY IV 01/16/25 13:15 Sodium Chloride 10 ml QSHIFT@10,22 IV 01/16/25 22:00 02/09/25 09:13 10 ML Hydralazine HCl 10 mg Q6HP PRN IV 01/16/25 20:00 Lorazepam 0.5 mg Q6HP PRN IV 01/17/25 07:45 02/08/25 20:28 0.5 MG Diagnostic Test (Pha) 1 strip Q6HR 01/17/25 18:00 02/09/25 05:40 1 STRIP Insulin Human Regular FOLLOW SLIDING SCALE Q6HR SC 01/17/25 18:00 02/09/25 05:40 4 UNITS Dextrose 50 ml UD IV 01/17/25 18:00 Metoprolol Tartrate 2.5 mg Q6HPRN PRN IV 01/19/25 13:00 Potassium Chloride 100 ml @ 50 mls/hr Q2H IV 01/26/25 17:30 01/26/25 21:29 UNV Fluconazole 100 ml @ 100 mls/hr 10,11 IV 02/01/25 10:00 02/09/25 09:13 100 MLS/HR Albuterol 2.5 mg Q4HR NEB 02/03/25 06:00 02/09/25 09:37 2.5 MG Ipratropium [place] 0.5 mg Q4HR NEB 02/03/25 06:00 02/09/25 09:37 0.5 MG Albuterol 2.5 mg Q2HPRN PRN NEB 02/04/25 12:00 Ipratropium [place] 0.5 mg Q2HPRN PRN NEB 02/04/25 12:00 Ipratropium [place] 0.5 mg Q4HR [facility] 02/05/25 14:00 Cancel Megestrol Acetate 400 mg DAILY PO 02/05/25 12:00 02/09/25 09:12 400 MG Enoxaparin Sodium 65 mg Q12HR SC 02/05/25 22:00 02/09/25 09:13 65 MG Furosemide 20 mg BIDD IV 02/05/25 18:00 02/09/25 05:41 20 MG Empaglifozin 10 mg DAILY PO 02/06/25 10:00 02/09/25 09:11 10 MG Acetaminophen/ Hydrocodone Bitart 1 tab Q4HP PRN PO 02/08/25 11:00 02/09/25 09:12 1 TAB Fat Emulsion Intravenous 100 ml/Sodium Chloride 120 meq/ Sodium Phosphate 20 meq/Potassium Chloride 40 meq/ Magnesium Sulfate 12 meq/ Multivitamins 10 ml/Chromium/ Copper/Manganese/ Zinc 1 ml/Insulin Human Regular 30 units/Amino Acids/ Dextrose 1,269.3 ml @ 53 mls/hr [id number] IV 02/08/25 22:00 02/09/25 21:59 02/09/25 01:50 53 MLS/HR objective GENERAL: Alert and oriented x 3. No acute distress. EYES: PERRL, EOMI. Anicteric. HENT: Moist mucous membranes. LUNGS: Diminished breath sounds. CARDIOVASCULAR: Regular rate and rhythm. ABDOMEN: Soft, non-tender and non-distended. EXTREMITIES: No edema. NEUROLOGIC: No focal neurological deficits. SKIN: Warm, dry. laboratory and microbiology Laboratory Tests 02/09/25 08:18 02/04/25 08:10 Test 02/09/25 08:18 Range/Units Serum Glucose 172 H 74-106 mg/dL Problem List Acute decompensated HFpEF, NYHA class III. Paroxysmal Atrial fibrillation, Stage 3a (on Xarelto). Hypertension. Pneumoperitoneum. Sepsis. History of abdominal aortic aneurysm. Pulmonary hypertension. Type 2 diabetes mellitus. Morbid obesity. Assessment/Plan Continued all current supportive medical care. [place] for pain management. DVT and GI prophylactics. Diuretics with Lasix. IV Hydralazine for SBP >170. Metoprolol. Nitro SL. Additional plan as per the hospital course. Dietary Evaluation Review Comments: 1. Advance TPN to meet at least 75% estimated needs 2. Contineu current POC Expected Outcomes/Goals: To meet >75% estimated needs Fu 2-3 days Plan discussed with: Patient KRISTIN JOSEPH MD Feb 09, 2025 11:38
[2025-02-10] VITALS (20 sets, daily range): BP systolic 94–124; BP diastolic 36–56; PULSE 67–78; RESP 16–19; TEMP 97.4–98.1; O2SAT 88–100
[2025-02-10] MEDS: ACETAMINOPHEN 325 MG TAB PO PRN (01:41)
--- NOTE | 2025-02-10 10:26 | DVHPN2 ---
Progress Note Date Seen: Feb 10, 2025 Resident Creating Document: ARLEN RECIO RESIDENT Medical Necessity Reason Pt with a Central, PICC or Fol: No Subjective Review of Systems Patient is 74 years old male with past medical history of hypertension, diabetes mellitus, hyperlipidemia, atrial fibrillation, anemia presents to the ED with a complaint of near-syncope. Patient also had epigastric pain radiating to the chest and lower abdominal region. Pain was associated with the shortness of breaths and nausea which was getting worse and prompted the ER visit. CT scan of the abdomen and pelvis revealed- Status post gastric bypass with foci of free air adjacent to the stomach concerning for perforation at the surgical incision sites from the bypass versus due to ulceration of the stomach. There is moderate amount of free air along the midline anterior abdomen adjacent to the transverse colon. Critical Result: Pneumoperitoneum Patient was seen today for clinical evaluation. Lab and chart reviewed. Patient on [place] O2 4 L/min. Denied any respiratory distress. Objective vital signs Vital Sign Date Time Temp Pulse Resp B/P (MAP) Pulse Ox O2 Delivery O2 Flow Rate FiO2 02/10/25 09:14 98.0 71 16 112/50 (70) 93 98.0 02/10/25 06:07 Nasal Cannula 4.0 02/10/25 06:07 36 Total Intake and Output 02/09/25 02/09/25 02/10/25 15:00 23:00 07:00 Intake Total 200 ml 1373.62 ml 450 ml Output Total 1650 ml 2600 ml Balance 200 ml -276.38 ml -2150 ml medications Current Medications Medications Dose Ordered Sig/Vincent Route Start Time Stop Time Status Last Admin Dose Admin Warfarin Sodium RX PROTOCOL PER PHARMACY PO 01/15/25 01:45 Cancel Ondansetron HCl 4 mg Q4HP PRN IV 01/15/25 01:45 02/10/25 09:13 4 MG Docusate Sodium 100 mg BIDPRN PRN PO 01/15/25 01:45 Acetaminophen 650 mg Q6HP PRN PO 01/15/25 01:45 02/10/25 01:41 650 MG Nitroglycerin 0.4 mg Q5MINP PRN SL 01/15/25 01:45 Pantoprazole Sodium 40 mg BID IV 01/15/25 10:00 02/09/25 22:15 40 MG Amino Acids 0 ml @ 0 mls/hr PER PHARMACY IV 01/16/25 13:15 Sodium Chloride 10 ml QSHIFT@10,22 IV 01/16/25 22:00 02/10/25 09:15 10 ML Hydralazine HCl 10 mg Q6HP PRN IV 01/16/25 20:00 Lorazepam 0.5 mg Q6HP PRN IV 01/17/25 07:45 02/10/25 04:16 0.5 MG Diagnostic Test (Pha) 1 strip Q6HR 01/17/25 18:00 02/10/25 06:15 1 STRIP Insulin Human Regular FOLLOW SLIDING SCALE Q6HR SC 01/17/25 18:00 02/10/25 06:14 4 UNITS Dextrose 50 ml UD IV 01/17/25 18:00 Metoprolol Tartrate 2.5 mg Q6HPRN PRN IV 01/19/25 13:00 Potassium Chloride 100 ml @ 50 mls/hr Q2H IV 01/26/25 17:30 01/26/25 21:29 UNV Fluconazole 100 ml @ 100 mls/hr 10,11 IV 02/01/25 10:00 02/10/25 09:14 100 MLS/HR Albuterol 2.5 mg Q4HR NEB 02/03/25 06:00 02/10/25 06:07 2.5 MG Ipratropium [place] 0.5 mg Q4HR NEB 02/03/25 06:00 02/10/25 06:07 0.5 MG Albuterol 2.5 mg Q2HPRN PRN NEB 02/04/25 12:00 Ipratropium [place] 0.5 mg Q2HPRN PRN NEB 02/04/25 12:00 Ipratropium [place] 0.5 mg Q4HR NEB 02/05/25 14:00 Cancel Megestrol Acetate 400 mg DAILY PO 02/05/25 12:00 02/10/25 09:14 400 MG Enoxaparin Sodium 65 mg Q12HR SC 02/05/25 22:00 02/09/25 22:16 65 MG Furosemide 20 mg BIDD IV 02/05/25 18:00 02/10/25 06:22 20 MG Empaglifozin 10 mg DAILY PO 02/06/25 10:00 02/10/25 09:13 10 MG Acetaminophen/ Hydrocodone Bitart 1 tab Q4HP PRN PO 02/08/25 11:00 02/10/25 09:12 1 TAB Fat Emulsion Intravenous 100 ml/Sodium Chloride 140 meq/ Sodium Phosphate 10 meq/Potassium Chloride 20 meq/ Magnesium Sulfate 12 meq/ Multivitamins 10 ml/Chromium/ Copper/Manganese/ Zinc 1 ml/Insulin Human Regular 20 units/Amino Acids/ Dextrose 1,111.7 ml @ 46 mls/hr [id number] IV 02/09/25 22:00 02/10/25 21:59 02/09/25 22:15 46 MLS/HR Amiodarone HCl 200 mg Q12HR PO 02/09/25 22:00 02/09/25 22:15 200 MG laboratory and microbiology Test 02/10/25 09:57 Range/Units Serum Glucose Pending Microbiology Date/Time Source Procedure Growth Status 01/25/25 09:35 Aspirate Gram Stain - Final Complete 01/25/25 09:35 Body Fluid Culture - Final Escherichia coli Presumptive Zenaida albicans Complete 01/15/25 00:28 Blood Blood Culture - Final NO GROWTH AFTER 5 DAYS OF INCUBATION. Complete Problem List/Assessment/Plan Problem List/Assessment/Plan Assessment/Plan Impression Acute hypoxemic respiratory failure likely due to pneumonia/HFpEF COPD- stable Sepsis likely due to pneumonia Pneumonia Gram-positive versus Gram negative Perforated viscus and pneumoperitoneum, with history of gastric bypass, conservative management by surgical team Left upper quadrant abscess, status post drainage Lactic acidosis, resolved Morbid obesity Patient seen and examined Events On [place] O2 4 L per minute No distress Labs and imaging reviewed Patient is seen by Cardiology Management Supplemental oxygen Titrate to maintain sats 90% or above Incentive spirometry Continue antibiotics F/u cultures Bronchodilators Monitor renal function Monitor electrolytes Supplement as needed Pain control F/u general surgery DVT prophylaxis Plan discussed with Dr. Malagon , nursing staff, Total time spent on patient evaluation, chart review, assessment and plan, discussion discussion >35 minutes Plan discussed with: Patient, Other (RN) Dietary Evaluation Review Comments: 1. Advance TPN to meet at least 75% estimated needs 2. Contineu current POC Expected Outcomes/Goals: To meet >75% estimated needs Fu 2-3 days Date of Service: Feb 10, 2025 Billing Provider: MIK COLLAZO MD Common Visit Codes: NOT BILLABLE ARLEN RECIO RESIDENT Feb 10, 2025 10:25 MIK COLLAZO MD Feb 11, 2025 14:47
[2025-02-10 10:41] LABS: Basophils # (auto) 0.1 10 ^3/uL (0-0.2); Eosinophils # (auto) 0.4 10 ^3/uL (0-0.8); Lymphocytes # (auto) 0.9 10 ^3/uL (0.4-5.4); Monocytes # (auto) 0.8 10 ^3/uL (0-1.3); Nucleated Red Blood Cells % 0.3 %
[2025-02-10 10:43] LABS: Basophils % (auto) 0.8 % (0.0-2.0); Eosinophils % (auto) 6.2 % (0.0-7.0); Hemoglobin 8.7 g/dL (13.5-17.5); Lymphocytes % (auto) 14.3 % (10.0-50.0); Mean Corpuscular Hemoglobin 22.4 pg (28.0-32.0); Mean Corpuscular Hgb Conc. 30.1 g/dL (32.0-36.0); Mean Corpuscular Volume 74.6 fL (80.0-100.0); Monocytes % (auto) 12.4 % (0.0-12.0); Neutrophils # (auto) 4.2 10 ^3/uL (1.6-8.6); Neutrophils % (auto) 66.3 % (37.0-80.0); Platelet Count (auto) 328 10^3/uL (140-450); Red Blood Cells 3.88 10^6/uL (4.5-5.90); White Blood Cell 6.3 10^3/uL (4.4-10.8)
[2025-02-10 10:59] LABS: Alanine Aminotransferase 34 U/L (7-40); Albumin 3.6 g/dL (3.2-4.8); Alkaline Phosphatase 67 U/L (46-116); Anion Gap 5 (5-15); Aspartate Aminotransferase 29 U/L (<34); Blood Urea Nitrogen 19 mg/dL (9-23); Calcium 9.8 mg/dL (8.7-10.4); Magnesium 2.2 mg/dL (1.6-2.6); Potassium 4.2 mmol/L (3.5-5.1); Sodium 137 mmol/L (136-145); Total Protein 7.5 g/dL (5.7-8.2)
[2025-02-10 11:00] LABS: Phosphorus 3.6 mg/dL (2.4-5.1)
[2025-02-10 11:02] LABS: Bilirubin, Total < 0.2 mg/dL (0.2-1.0); Carbon Dioxide 39 mmol/L (20-31); Chloride 93 mmol/L (98-107); Glucose 152 mg/dL (74-106)
--- NOTE | 2025-02-10 11:15 | DVHPN2 ---
Reviewed: Care Plan, H&P, Labs, Medications, Previous Orders, Radiology Changes from previous H/P or p: No Changes General: Per HPI Objective Vitals Vital Signs Date Time Temp Pulse Resp B/P (MAP) Pulse Ox O2 Delivery O2 Flow Rate FiO2 02/10/25 11:01 70 18 93 02/10/25 10:55 Nasal Cannula* 4 36 02/10/25 09:14 98.0 112/50 (70) 98.0 Intake/Output Intake and Output 02/10/25 07:00 Intake Total 2023.62 ml Output Total 4250 ml Balance -2226.38 ml Intake Oral 1230 ml IV Total 793.62 ml Output Urine Total 4250 ml # Voids 1 General Appearance: Alert, Oriented X3, No acute distress HEENT: Atraumatic, PERRLA, EOMI, Mucous membr. moist/pink Neck: Supple Lungs: Clear to auscultation, Normal air movement Cardiovascular: Regular rate, Normal S1, Normal S2, No murmurs, Gallops, Rubs Abdomen: Normal bowel sounds, Soft, No tenderness Neuro: Cranial nerves 3-12 NL Psych/Mental Status: Mental status NL Medications Current Medications Medications Dose Ordered Sig/Vincent Route Start Time Stop Time Status Last Admin Dose Admin Warfarin Sodium RX PROTOCOL PER PHARMACY PO 01/15/25 01:45 Cancel Ondansetron HCl 4 mg Q4HP PRN IV 01/15/25 01:45 02/10/25 09:13 4 MG Docusate Sodium 100 mg BIDPRN PRN PO 01/15/25 01:45 Acetaminophen 650 mg Q6HP PRN PO 01/15/25 01:45 02/10/25 01:41 650 MG Nitroglycerin 0.4 mg Q5MINP PRN SL 01/15/25 01:45 Pantoprazole Sodium 40 mg BID IV 01/15/25 10:00 02/09/25 22:15 40 MG Amino Acids 0 ml @ 0 mls/hr PER PHARMACY IV 01/16/25 13:15 Sodium Chloride 10 ml QSHIFT@10,22 IV 01/16/25 22:00 02/10/25 09:15 10 ML Hydralazine HCl 10 mg Q6HP PRN IV 01/16/25 20:00 Lorazepam 0.5 mg Q6HP PRN IV 01/17/25 07:45 02/10/25 04:16 0.5 MG Diagnostic Test (Pha) 1 strip Q6HR 01/17/25 18:00 02/10/25 06:15 1 STRIP Insulin Human Regular FOLLOW SLIDING SCALE Q6HR SC 01/17/25 18:00 02/10/25 06:14 4 UNITS Dextrose 50 ml UD IV 01/17/25 18:00 Metoprolol Tartrate 2.5 mg Q6HPRN PRN IV 01/19/25 13:00 Potassium Chloride 100 ml @ 50 mls/hr Q2H IV 01/26/25 17:30 01/26/25 21:29 UNV Fluconazole 100 ml @ 100 mls/hr 10,11 IV 02/01/25 10:00 02/10/25 09:14 100 MLS/HR Albuterol 2.5 mg Q4HR NEB 02/03/25 06:00 02/10/25 10:50 2.5 MG Ipratropium [place] 0.5 mg Q4HR NEB 02/03/25 06:00 02/10/25 10:50 0.5 MG Albuterol 2.5 mg Q2HPRN PRN NEB 02/04/25 12:00 Ipratropium [place] 0.5 mg Q2HPRN PRN NEB 02/04/25 12:00 Ipratropium [place] 0.5 mg Q4HR NEB 02/05/25 14:00 Cancel Megestrol Acetate 400 mg DAILY PO 02/05/25 12:00 02/10/25 09:14 400 MG Enoxaparin Sodium 65 mg Q12HR SC 02/05/25 22:00 02/09/25 22:16 65 MG Furosemide 20 mg BIDD IV 02/05/25 18:00 02/10/25 06:22 20 MG Empaglifozin 10 mg DAILY PO 02/06/25 10:00 02/10/25 09:13 10 MG Acetaminophen/ Hydrocodone Bitart 1 tab Q4HP PRN PO 02/08/25 11:00 02/10/25 09:12 1 TAB Fat Emulsion Intravenous 100 ml/Sodium Chloride 140 meq/ Sodium Phosphate 10 meq/Potassium Chloride 20 meq/ Magnesium Sulfate 12 meq/ Multivitamins 10 ml/Chromium/ Copper/Manganese/ Zinc 1 ml/Insulin Human Regular 20 units/Amino Acids/ Dextrose 1,111.7 ml @ 46 mls/hr [id number] IV 02/09/25 22:00 02/10/25 21:59 02/09/25 22:15 46 MLS/HR Amiodarone HCl 200 mg Q12HR PO 02/09/25 22:00 02/09/25 22:15 200 MG Laboratory Results Laboratory Tests 02/10/25 09:57 Chemistry Test 02/10/25 09:57 Albumin 3.6 g/dL (3.2-4.8) Calcium Level 9.8 mg/dL (8.7-10.4) Magnesium Level 2.2 mg/dL (1.6-2.6) Phosphorus Level 3.6 mg/dL (2.4-5.1) Total Protein 7.5 g/dL (5.7-8.2) LFT Test 02/10/25 09:57 Alanine Aminotransferase (ALT) 34 U/L (7-40) Alkaline Phosphatase 67 U/L (46-116) Aspartate Amino Transferase (AST) 29 U/L (<34) Total Bilirubin < 0.2 mg/dL (0.2-1.0) L Urinalysis Test 01/15/25 01:59 Urine Color Light-yellow (Yellow) Urine Clarity Clear (Clear) Urine pH 6.0 (5.0-9.0) Urine Specific [place] 1.018 (1.001-1.035) Urine Protein Negative (Negative) Urine Ketones Negative (Negative) Urine Blood Negative /uL (Negative) Urine Nitrite Negative (Negative) Urine Bilirubin Negative (Negative) Urine Urobilinogen Normal mg/dL (Negative) Urine Leukocyte Esterase Negative /uL (Negative) Urine RBC <1 /hpf (0 - 3) Urine Microscopic WBC /HPF (0-3) Urine Squamous Epithelial Cells None seen /hpf (<5) Urine Bacteria None seen /hpf (None Seen) Urine Glucose 4+ mg/dL (Normal) H Microbiology Microbiology Date/Time Source Procedure Growth Status 01/25/25 09:35 Aspirate Gram Stain - Final Complete 01/25/25 09:35 Body Fluid Culture - Final Escherichia coli Presumptive Zenaida albicans Complete 01/15/25 00:28 Blood Blood Culture - Final NO GROWTH AFTER 5 DAYS OF INCUBATION. Complete Labs and/or images reviewed: Labs reviewed by me, Image(s) reviewed by me Assessment/Plan Assessment/Plan Acute hypoxic respiratory failure: Oxygen by nasal cannula, chest x-ray, consult for Chronic hypercarbic respiratory failure Dependence on home oxygen Intractable abdominal pain, treated with the Zosyn and doxycycline Perforated viscus and pneumoperitoneum, with history of gastric bypass, conservative management consult by Dr. Bird appreciated Left upper quadrant abscess status post drainage Lactic acidosis, resolved Zenaida in the abdominal abscess aspirate: Fluconazole converted to p.o. Sepsis due to above Acute respiratory distress Diabetes with hyperglycemia AFib on Coumadin Morbid obesity Obstructive sleep apnea: CPAP Acute hypokalemia: Replace potassium Lipase elevated, mild Nutrition TPN discontinued, patient is tolerating regular diet Continue current management Plan discussed with: Patient My Orders Orders - PROMISE CASTANO MD Procedure Category Date Status Time Fluconazole Tablet PHA 02/11/25 Verified (Diflucan Tablet) 10:00 Date of Service: Feb 10, 2025 Billing Provider: PROMISE CASTANO MD Common Visit Codes: [id number] INP/OBS CARE(HIGH) PROMISE CASTANO MD Feb 10, 2025 11:15
--- NOTE | 2025-02-10 13:25 | DVHPN2 ---
Progress Note - Dictate Date Seen: Feb 10, 2025 Medical Necessity Reason Pt with a Central, PICC or Fol: No Subjective Patient was seen and evaluated in follow up. Patient's pigtail drain is draining 150 ml brown purulent drainage. Patient's SOB is gradually improving, he is on 4 LPM NC. HGB 8.7, HCT 29, CL 93, CO2 39. Telemetry reviewed. vital signs Vital Sign Date Time Temp Pulse Resp B/P (MAP) Pulse Ox O2 Delivery O2 Flow Rate FiO2 02/10/25 11:01 70 18 93 02/10/25 10:55 Nasal Cannula* 4 36 02/10/25 09:14 98.0 112/50 (70) 98.0 Total Intake and Output 02/09/25 02/09/25 02/10/25 14:59 22:59 06:59 Intake Total 200 ml 1373.62 ml 450 ml Output Total 1650 ml 2600 ml Balance 200 ml -276.38 ml -2150 ml medications Current Medications Medications Dose Ordered Sig/Vincent Route Start Time Stop Time Status Last Admin Dose Admin Warfarin Sodium RX PROTOCOL PER PHARMACY PO 01/15/25 01:45 Cancel Ondansetron HCl 4 mg Q4HP PRN IV 01/15/25 01:45 02/10/25 09:13 4 MG Docusate Sodium 100 mg BIDPRN PRN PO 01/15/25 01:45 Acetaminophen 650 mg Q6HP PRN PO 01/15/25 01:45 02/10/25 01:41 650 MG Nitroglycerin 0.4 mg Q5MINP PRN SL 01/15/25 01:45 Pantoprazole Sodium 40 mg BID IV 01/15/25 10:00 02/09/25 22:15 40 MG Amino Acids 0 ml @ 0 mls/hr PER PHARMACY IV 01/16/25 13:15 02/10/25 21:59 Sodium Chloride 10 ml QSHIFT@10,22 IV 01/16/25 22:00 02/10/25 09:15 10 ML Hydralazine HCl 10 mg Q6HP PRN IV 01/16/25 20:00 Lorazepam 0.5 mg Q6HP PRN IV 01/17/25 07:45 02/10/25 04:16 0.5 MG Diagnostic Test (Pha) 1 strip Q6HR 01/17/25 18:00 02/10/25 06:15 1 STRIP Insulin Human Regular FOLLOW SLIDING SCALE Q6HR SC 01/17/25 18:00 02/10/25 06:14 4 UNITS Dextrose 50 ml UD IV 01/17/25 18:00 Metoprolol Tartrate 2.5 mg Q6HPRN PRN IV 01/19/25 13:00 Potassium Chloride 100 ml @ 50 mls/hr Q2H IV 01/26/25 17:30 01/26/25 21:29 UNV Albuterol 2.5 mg Q4HR NEB 02/03/25 06:00 02/10/25 10:50 2.5 MG Ipratropium [place] 0.5 mg Q4HR NEB 02/03/25 06:00 02/10/25 10:50 0.5 MG Albuterol 2.5 mg Q2HPRN PRN NEB 02/04/25 12:00 Ipratropium [place] 0.5 mg Q2HPRN PRN NEB 02/04/25 12:00 Ipratropium [place] 0.5 mg Q4HR NEB 02/05/25 14:00 Cancel Megestrol Acetate 400 mg DAILY PO 02/05/25 12:00 02/10/25 09:14 400 MG Enoxaparin Sodium 65 mg Q12HR SC 02/05/25 22:00 02/09/25 22:16 65 MG Furosemide 20 mg BIDD IV 02/05/25 18:00 02/10/25 06:22 20 MG Empaglifozin 10 mg DAILY PO 02/06/25 10:00 02/10/25 09:13 10 MG Acetaminophen/ Hydrocodone Bitart 1 tab Q4HP PRN PO 02/08/25 11:00 02/10/25 09:12 1 TAB Fat Emulsion Intravenous 100 ml/Sodium Chloride 140 meq/ Sodium Phosphate 10 meq/Potassium Chloride 20 meq/ Magnesium Sulfate 12 meq/ Multivitamins 10 ml/Chromium/ Copper/Manganese/ Zinc 1 ml/Insulin Human Regular 20 units/Amino Acids/ Dextrose 1,111.7 ml @ 46 mls/hr [id number] IV 02/09/25 22:00 02/10/25 21:59 02/09/25 22:15 46 MLS/HR Amiodarone HCl 200 mg Q12HR PO 02/09/25 22:00 02/09/25 22:15 200 MG Fluconazole 400 mg DAILY PO 02/11/25 10:00 objective GENERAL: Alert and oriented x 3. No acute distress. EYES: PERRL, EOMI. Anicteric. HENT: Moist mucous membranes. LUNGS: Diminished breath sounds. CARDIOVASCULAR: Regular rate and rhythm. ABDOMEN: Soft, non-tender and non-distended. EXTREMITIES: No edema. NEUROLOGIC: No focal neurological deficits. SKIN: Warm, dry. laboratory and microbiology Laboratory Tests 02/10/25 09:57 Test 02/10/25 09:57 Range/Units Serum Glucose 152 H 74-106 mg/dL Problem List Acute decompensated HFpEF, NYHA class III. Paroxysmal Atrial fibrillation, Stage 3a (on Xarelto). Hypertension. Pneumoperitoneum. Sepsis. History of abdominal aortic aneurysm. Pulmonary hypertension. Type 2 diabetes mellitus. Morbid obesity. Assessment/Plan Continued all current supportive medical care. [place] for pain management. DVT and GI prophylactics. Diuretics with Lasix. IV Hydralazine for SBP >170. Metoprolol. Nitro SL. Additional plan as per the hospital course. Dietary Evaluation Review Comments: 1. Advance TPN to meet at least 75% estimated needs 2. Contineu current POC Expected Outcomes/Goals: To meet >75% estimated needs Fu 2-3 days Plan discussed with: Patient KRISTIN JOSEPH MD Feb 10, 2025 12:21
[2025-02-11] VITALS (20 sets, daily range): BP systolic 104–142; BP diastolic 55–69; PULSE 69–95; RESP 14–20; TEMP 97.4–98; O2SAT 90–100
[2025-02-11] MEDS: FLUCONAZOLE 100 MG TAB PO SCH (09:19)
--- NOTE | 2025-02-11 11:17 | DVHPN2 ---
Reviewed: Care Plan, H&P, Labs, Medications, Previous Orders, Radiology Changes from previous H/P or p: No Changes General: Per HPI Objective Vitals Vital Signs Date Time Temp Pulse Resp B/P (MAP) Pulse Ox O2 Delivery O2 Flow Rate FiO2 02/11/25 10:20 74 18 96 02/11/25 10:12 Nasal Cannula* 3 32 02/11/25 08:38 97.8 116/55 (75) 97.8 Intake/Output Intake and Output 02/11/25 07:00 Intake Total 1400 ml Output Total 5000 ml Balance -3600 ml Intake Oral 1400 ml Output Urine Total 4750 ml Other 250 ml # Voids 1 # Bowel Movements 1 General Appearance: Alert, Oriented X3, No acute distress HEENT: Atraumatic, PERRLA, EOMI, Mucous membr. moist/pink Neck: Supple Lungs: Clear to auscultation, Normal air movement Cardiovascular: Regular rate, Normal S1, Normal S2, No murmurs, Gallops, Rubs Abdomen: Normal bowel sounds, Soft, No tenderness Neuro: Cranial nerves 3-12 NL Psych/Mental Status: Mental status NL Medications Current Medications Medications Dose Ordered Sig/Vincent Route Start Time Stop Time Status Last Admin Dose Admin Warfarin Sodium RX PROTOCOL PER PHARMACY PO 01/15/25 01:45 Cancel Ondansetron HCl 4 mg Q4HP PRN IV 01/15/25 01:45 02/11/25 06:46 4 MG Docusate Sodium 100 mg BIDPRN PRN PO 01/15/25 01:45 Acetaminophen 650 mg Q6HP PRN PO 01/15/25 01:45 02/10/25 01:41 650 MG Nitroglycerin 0.4 mg Q5MINP PRN SL 01/15/25 01:45 Pantoprazole Sodium 40 mg BID IV 01/15/25 10:00 02/11/25 09:16 40 MG Sodium Chloride 10 ml QSHIFT@10,22 IV 01/16/25 22:00 02/11/25 09:21 10 ML Hydralazine HCl 10 mg Q6HP PRN IV 01/16/25 20:00 Lorazepam 0.5 mg Q6HP PRN IV 01/17/25 07:45 02/11/25 04:13 0.5 MG Diagnostic Test (Pha) 1 strip Q6HR 01/17/25 18:00 02/11/25 05:04 1 STRIP Insulin Human Regular FOLLOW SLIDING SCALE Q6HR SC 01/17/25 18:00 02/11/25 05:05 4 UNITS Dextrose 50 ml UD IV 01/17/25 18:00 Metoprolol Tartrate 2.5 mg Q6HPRN PRN IV 01/19/25 13:00 Potassium Chloride 100 ml @ 50 mls/hr Q2H IV 01/26/25 17:30 01/26/25 21:29 UNV Albuterol 2.5 mg Q4HR NEB 02/03/25 06:00 02/11/25 10:09 2.5 MG Ipratropium [place] 0.5 mg Q4HR NEB 02/03/25 06:00 02/11/25 10:09 0.5 MG Albuterol 2.5 mg Q2HPRN PRN NEB 02/04/25 12:00 Ipratropium [place] 0.5 mg Q2HPRN PRN NEB 02/04/25 12:00 Ipratropium [place] 0.5 mg Q4HR NEB 02/05/25 14:00 Cancel Megestrol Acetate 400 mg DAILY PO 02/05/25 12:00 02/11/25 09:18 400 MG Enoxaparin Sodium 65 mg Q12HR SC 02/05/25 22:00 02/11/25 09:20 65 MG Furosemide 20 mg BIDD IV 02/05/25 18:00 02/11/25 05:15 20 MG Empaglifozin 10 mg DAILY PO 02/06/25 10:00 02/11/25 09:19 10 MG Acetaminophen/ Hydrocodone Bitart 1 tab Q4HP PRN PO 02/08/25 11:00 02/11/25 06:46 1 TAB Amiodarone HCl 200 mg Q12HR PO 02/09/25 22:00 02/11/25 09:19 200 MG Fluconazole 400 mg DAILY PO 02/11/25 10:00 02/11/25 09:19 400 MG Laboratory Results Laboratory Tests 02/10/25 09:57 Urinalysis Test 01/15/25 01:59 Urine Color Light-yellow (Yellow) Urine Clarity Clear (Clear) Urine pH 6.0 (5.0-9.0) Urine Specific [place] 1.018 (1.001-1.035) Urine Protein Negative (Negative) Urine Ketones Negative (Negative) Urine Blood Negative /uL (Negative) Urine Nitrite Negative (Negative) Urine Bilirubin Negative (Negative) Urine Urobilinogen Normal mg/dL (Negative) Urine Leukocyte Esterase Negative /uL (Negative) Urine RBC <1 /hpf (0 - 3) Urine Microscopic WBC /HPF (0-3) Urine Squamous Epithelial Cells None seen /hpf (<5) Urine Bacteria None seen /hpf (None Seen) Urine Glucose 4+ mg/dL (Normal) H Microbiology Microbiology Date/Time Source Procedure Growth Status 02/09/25 11:50 Nose MRSA Screen - Final Complete 01/25/25 09:35 Aspirate Gram Stain - Final Complete 01/25/25 09:35 Body Fluid Culture - Final Escherichia coli Presumptive Zenaida albicans Complete 01/15/25 00:28 Blood Blood Culture - Final NO GROWTH AFTER 5 DAYS OF INCUBATION. Complete Labs and/or images reviewed: Labs reviewed by me, Image(s) reviewed by me Assessment/Plan Assessment/Plan Acute hypoxic respiratory failure: Oxygen by nasal cannula, chest x-ray, consult for Chronic hypercarbic respiratory failure Dependence on home oxygen Intractable abdominal pain, treated with the Zosyn and doxycycline Perforated viscus and pneumoperitoneum, with history of gastric bypass, conservative management consult by Dr. Bird appreciated Left upper quadrant abscess status post drainage Lactic acidosis, resolved Zenaida in the abdominal abscess aspirate: Fluconazole converted to p.o. Sepsis due to above Acute respiratory distress Diabetes with hyperglycemia AFib on Coumadin Morbid obesity Obstructive sleep apnea: CPAP Acute hypokalemia: Replace potassium Lipase elevated, mild TPN Discontinued Plan discussed with: Patient My Orders Orders - PROMISE CASTANO MD Procedure Category Date Status Time * Wound Consult CONS 02/10/25 Transmitted Date of Service: Feb 11, 2025 Billing Provider: PROMISE CASTANO MD Common Visit Codes: [id number] INP/OBS CARE(HIGH) PROMISE CASTANO MD Feb 11, 2025 11:17
--- NOTE | 2025-02-11 13:48 | DVHPN2 ---
Progress Note - Dictate Date Seen: Feb 11, 2025 Medical Necessity Reason Pt with a Central, PICC or Fol: No vital signs Vital Sign Date Time Temp Pulse Resp B/P (MAP) Pulse Ox O2 Delivery O2 Flow Rate FiO2 02/11/25 13:44 76 20 94 02/11/25 12:32 97.8 142/68 (92) 97.8 02/11/25 10:12 Nasal Cannula* 3 32 Total Intake and Output 02/10/25 02/10/25 02/11/25 15:00 23:00 07:00 Intake Total 200 ml 1200 ml Output Total 2050 ml 500 ml 2450 ml Balance -2050 ml -300 ml -1250 ml medications Current Medications Medications Dose Ordered Sig/Vincent Route Start Time Stop Time Status Last Admin Dose Admin Warfarin Sodium RX PROTOCOL PER PHARMACY PO 01/15/25 01:45 Cancel Ondansetron HCl 4 mg Q4HP PRN IV 01/15/25 01:45 02/11/25 11:21 4 MG Docusate Sodium 100 mg BIDPRN PRN PO 01/15/25 01:45 Acetaminophen 650 mg Q6HP PRN PO 01/15/25 01:45 02/10/25 01:41 650 MG Nitroglycerin 0.4 mg Q5MINP PRN SL 01/15/25 01:45 Pantoprazole Sodium 40 mg BID IV 01/15/25 10:00 02/11/25 09:16 40 MG Sodium Chloride 10 ml QSHIFT@10,22 IV 01/16/25 22:00 02/11/25 09:21 10 ML Hydralazine HCl 10 mg Q6HP PRN IV 01/16/25 20:00 Lorazepam 0.5 mg Q6HP PRN IV 01/17/25 07:45 02/11/25 04:13 0.5 MG Diagnostic Test (Pha) 1 strip Q6HR 01/17/25 18:00 02/11/25 12:05 1 STRIP Insulin Human Regular FOLLOW SLIDING SCALE Q6HR SC 01/17/25 18:00 02/11/25 12:09 2 UNITS Dextrose 50 ml UD IV 01/17/25 18:00 Metoprolol Tartrate 2.5 mg Q6HPRN PRN IV 01/19/25 13:00 Potassium Chloride 100 ml @ 50 mls/hr Q2H IV 01/26/25 17:30 01/26/25 21:29 UNV Albuterol 2.5 mg Q4HR NEB 02/03/25 06:00 02/11/25 13:44 2.5 MG Ipratropium [place] 0.5 mg Q4HR NEB 02/03/25 06:00 02/11/25 13:44 0.5 MG Albuterol 2.5 mg Q2HPRN PRN NEB 02/04/25 12:00 Ipratropium [place] 0.5 mg Q2HPRN PRN NEB 02/04/25 12:00 Ipratropium [place] 0.5 mg Q4HR NEB 02/05/25 14:00 Cancel Megestrol Acetate 400 mg DAILY PO 02/05/25 12:00 02/11/25 09:18 400 MG Enoxaparin Sodium 65 mg Q12HR SC 02/05/25 22:00 02/11/25 09:20 65 MG Furosemide 20 mg BIDD IV 02/05/25 18:00 02/11/25 05:15 20 MG Empaglifozin 10 mg DAILY PO 02/06/25 10:00 02/11/25 09:19 10 MG Acetaminophen/ Hydrocodone Bitart 1 tab Q4HP PRN PO 02/08/25 11:00 02/11/25 11:22 1 TAB Amiodarone HCl 200 mg Q12HR PO 02/09/25 22:00 02/11/25 09:19 200 MG Fluconazole 400 mg DAILY PO 02/11/25 10:00 02/11/25 09:19 400 MG laboratory and microbiology Laboratory Tests 02/10/25 09:57 Test 02/10/25 09:57 Range/Units Serum Glucose 152 H 74-106 mg/dL Assessment/Plan Impression Acute hypoxemic respiratory failure Morbid obesity COPD- stable Pneumonia SBO Patient seen and examined Events Low oxygen requirements On 3 liters nasal cannula No acute events Labs and imaging reviewed Management Supplemental oxygen Titrate to maintain sats 90% or above Incentive spirometry Continue antibiotics F/u cultures Bronchodilators Monitor renal function Monitor electrolytes Supplement as needed Pain control Avoid oversedation F/u general surgery DVT prophylaxis Dietary Evaluation Review Comments: 1. Advance TPN to meet at least 75% estimated needs 2. Contineu current POC Expected Outcomes/Goals: To meet >75% estimated needs Fu 2-3 days Plan discussed with: Patient IMK COLLAZO MD Feb 11, 2025 13:48
--- NOTE | 2025-02-11 18:39 | DVHPN2 ---
Progress Note - Dictate Date Seen: Feb 11, 2025 Medical Necessity Reason Pt with a Central, PICC or Fol: No Subjective Patient was seen and evaluated in follow up. No overnight events. Patient is on 3 LPM NC. BS in the 160's. Telemetry reviewed. vital signs Vital Sign Date Time Temp Pulse Resp B/P (MAP) Pulse Ox O2 Delivery O2 Flow Rate FiO2 02/11/25 10:20 74 18 96 02/11/25 10:12 Nasal Cannula* 3 32 02/11/25 08:38 97.8 116/55 (75) 97.8 Total Intake and Output 02/10/25 02/10/25 02/11/25 15:00 23:00 07:00 Intake Total 200 ml 1200 ml Output Total 2050 ml 500 ml 2450 ml Balance -2050 ml -300 ml -1250 ml medications Current Medications Medications Dose Ordered Sig/Vincent Route Start Time Stop Time Status Last Admin Dose Admin Warfarin Sodium RX PROTOCOL PER PHARMACY PO 01/15/25 01:45 Cancel Ondansetron HCl 4 mg Q4HP PRN IV 01/15/25 01:45 02/11/25 11:21 4 MG Docusate Sodium 100 mg BIDPRN PRN PO 01/15/25 01:45 Acetaminophen 650 mg Q6HP PRN PO 01/15/25 01:45 02/10/25 01:41 650 MG Nitroglycerin 0.4 mg Q5MINP PRN SL 01/15/25 01:45 Pantoprazole Sodium 40 mg BID IV 01/15/25 10:00 02/11/25 09:16 40 MG Sodium Chloride 10 ml QSHIFT@10,22 IV 01/16/25 22:00 02/11/25 09:21 10 ML Hydralazine HCl 10 mg Q6HP PRN IV 01/16/25 20:00 Lorazepam 0.5 mg Q6HP PRN IV 01/17/25 07:45 02/11/25 04:13 0.5 MG Diagnostic Test (Pha) 1 strip Q6HR 01/17/25 18:00 02/11/25 05:04 1 STRIP Insulin Human Regular FOLLOW SLIDING SCALE Q6HR SC 01/17/25 18:00 02/11/25 05:05 4 UNITS Dextrose 50 ml UD IV 01/17/25 18:00 Metoprolol Tartrate 2.5 mg Q6HPRN PRN IV 01/19/25 13:00 Potassium Chloride 100 ml @ 50 mls/hr Q2H IV 01/26/25 17:30 01/26/25 21:29 UNV Albuterol 2.5 mg Q4HR NEB 02/03/25 06:00 02/11/25 10:09 2.5 MG Ipratropium [place] 0.5 mg Q4HR NEB 02/03/25 06:00 02/11/25 10:09 0.5 MG Albuterol 2.5 mg Q2HPRN PRN NEB 02/04/25 12:00 Ipratropium [place] 0.5 mg Q2HPRN PRN NEB 02/04/25 12:00 Ipratropium [place] 0.5 mg Q4HR NEB 02/05/25 14:00 Cancel Megestrol Acetate 400 mg DAILY PO 02/05/25 12:00 02/11/25 09:18 400 MG Enoxaparin Sodium 65 mg Q12HR SC 02/05/25 22:00 02/11/25 09:20 65 MG Furosemide 20 mg BIDD IV 02/05/25 18:00 02/11/25 05:15 20 MG Empaglifozin 10 mg DAILY PO 02/06/25 10:00 02/11/25 09:19 10 MG Acetaminophen/ Hydrocodone Bitart 1 tab Q4HP PRN PO 02/08/25 11:00 02/11/25 11:22 1 TAB Amiodarone HCl 200 mg Q12HR PO 02/09/25 22:00 02/11/25 09:19 200 MG Fluconazole 400 mg DAILY PO 02/11/25 10:00 02/11/25 09:19 400 MG objective GENERAL: Alert and oriented x 3. No acute distress. EYES: PERRL, EOMI. Anicteric. HENT: Moist mucous membranes. LUNGS: Diminished breath sounds. CARDIOVASCULAR: Regular rate and rhythm. ABDOMEN: Soft, non-tender and non-distended. EXTREMITIES: No edema. NEUROLOGIC: No focal neurological deficits. SKIN: Warm, dry. laboratory and microbiology Laboratory Tests 02/10/25 09:57 Test 02/10/25 09:57 Range/Units Serum Glucose 152 H 74-106 mg/dL Problem List Acute decompensated HFpEF, NYHA class III. Paroxysmal Atrial fibrillation, Stage 3a (on Xarelto). Hypertension. Pneumoperitoneum. Sepsis. History of abdominal aortic aneurysm. Pulmonary hypertension. Type 2 diabetes mellitus. Morbid obesity. Assessment/Plan Continued all current supportive medical care. [place] for pain management. DVT and GI prophylactics. Diuretics with Lasix. IV Hydralazine for SBP >170. Metoprolol. Nitro SL. Additional plan as per the hospital course. Dietary Evaluation Review Comments: 1. Advance TPN to meet at least 75% estimated needs 2. Contineu current POC Expected Outcomes/Goals: To meet >75% estimated needs Fu 2-3 days Plan discussed with: Patient KRISTIN JOSEPH MD Feb 11, 2025 11:30
[2025-02-12] VITALS (23 sets, daily range): BP systolic 124–144; BP diastolic 63–78; PULSE 67–91; RESP 16–19; TEMP 97.7–98.7; O2SAT 90–100
--- NOTE | 2025-02-12 10:53 | DVHPN2 ---
Reviewed: Care Plan, H&P, Labs, Medications, Previous Orders, Radiology Changes from previous H/P or p: No Changes General: Per HPI Objective Vitals Vital Signs Date Time Temp Pulse Resp B/P (MAP) Pulse Ox O2 Delivery O2 Flow Rate FiO2 02/12/25 10:30 94 Nasal Cannula* 4 36 02/12/25 10:30 82 16 02/12/25 08:51 97.7 129/75 (93) 97.7 Intake/Output Intake and Output 02/12/25 07:00 Intake Total 820 ml Output Total 4390 ml Balance -3570 ml Intake Oral 820 ml Output Urine Total 4200 ml Drainage Total 190 ml # Bowel Movements 2 General Appearance: Alert, Oriented X3, No acute distress HEENT: Atraumatic, PERRLA, EOMI, Mucous membr. moist/pink Neck: Supple Lungs: Clear to auscultation, Normal air movement Cardiovascular: Regular rate, Normal S1, Normal S2, No murmurs, Gallops, Rubs Abdomen: Normal bowel sounds, Soft, No tenderness Neuro: Cranial nerves 3-12 NL Psych/Mental Status: Mental status NL Medications Current Medications Medications Dose Ordered Sig/Vincent Route Start Time Stop Time Status Last Admin Dose Admin Warfarin Sodium RX PROTOCOL PER PHARMACY PO 01/15/25 01:45 Cancel Ondansetron HCl 4 mg Q4HP PRN IV 01/15/25 01:45 02/12/25 05:08 4 MG Docusate Sodium 100 mg BIDPRN PRN PO 01/15/25 01:45 Acetaminophen 650 mg Q6HP PRN PO 01/15/25 01:45 02/10/25 01:41 650 MG Nitroglycerin 0.4 mg Q5MINP PRN SL 01/15/25 01:45 Pantoprazole Sodium 40 mg BID IV 01/15/25 10:00 02/12/25 09:19 40 MG Sodium Chloride 10 ml QSHIFT@10,22 IV 01/16/25 22:00 02/11/25 23:05 10 ML Hydralazine HCl 10 mg Q6HP PRN IV 01/16/25 20:00 Lorazepam 0.5 mg Q6HP PRN IV 01/17/25 07:45 02/12/25 03:15 0.5 MG Diagnostic Test (Pha) 1 strip Q6HR 01/17/25 18:00 02/12/25 06:00 1 STRIP Insulin Human Regular FOLLOW SLIDING SCALE Q6HR SC 01/17/25 18:00 02/12/25 00:24 2 UNITS Dextrose 50 ml UD IV 01/17/25 18:00 Metoprolol Tartrate 2.5 mg Q6HPRN PRN IV 01/19/25 13:00 Potassium Chloride 100 ml @ 50 mls/hr Q2H IV 01/26/25 17:30 01/26/25 21:29 UNV Albuterol 2.5 mg Q4HR NEB 02/03/25 06:00 02/12/25 10:30 2.5 MG Ipratropium [place] 0.5 mg Q4HR NEB 02/03/25 06:00 02/12/25 10:30 0.5 MG Albuterol 2.5 mg Q2HPRN PRN NEB 02/04/25 12:00 Ipratropium [place] 0.5 mg Q2HPRN PRN NEB 02/04/25 12:00 Ipratropium [place] 0.5 mg Q4HR NEB 02/05/25 14:00 Cancel Megestrol Acetate 400 mg DAILY PO 02/05/25 12:00 02/12/25 09:21 400 MG Enoxaparin Sodium 65 mg Q12HR SC 02/05/25 22:00 02/12/25 09:20 65 MG Furosemide 20 mg BIDD IV 02/05/25 18:00 02/12/25 05:54 20 MG Empaglifozin 10 mg DAILY PO 02/06/25 10:00 02/12/25 09:21 10 MG Acetaminophen/ Hydrocodone Bitart 1 tab Q4HP PRN PO 02/08/25 11:00 02/12/25 05:08 1 TAB Amiodarone HCl 200 mg Q12HR PO 02/09/25 22:00 02/12/25 09:20 200 MG Fluconazole 400 mg DAILY PO 02/11/25 10:00 02/12/25 09:20 400 MG Laboratory Results Laboratory Tests 02/10/25 09:57 Urinalysis Test 01/15/25 01:59 Urine Color Light-yellow (Yellow) Urine Clarity Clear (Clear) Urine pH 6.0 (5.0-9.0) Urine Specific [place] 1.018 (1.001-1.035) Urine Protein Negative (Negative) Urine Ketones Negative (Negative) Urine Blood Negative /uL (Negative) Urine Nitrite Negative (Negative) Urine Bilirubin Negative (Negative) Urine Urobilinogen Normal mg/dL (Negative) Urine Leukocyte Esterase Negative /uL (Negative) Urine RBC <1 /hpf (0 - 3) Urine Microscopic WBC /HPF (0-3) Urine Squamous Epithelial Cells None seen /hpf (<5) Urine Bacteria None seen /hpf (None Seen) Urine Glucose 4+ mg/dL (Normal) H Microbiology Microbiology Date/Time Source Procedure Growth Status 02/09/25 11:50 Nose MRSA Screen - Final Complete 01/25/25 09:35 Aspirate Gram Stain - Final Complete 01/25/25 09:35 Body Fluid Culture - Final Escherichia coli Presumptive Zenaida albicans Complete 01/15/25 00:28 Blood Blood Culture - Final NO GROWTH AFTER 5 DAYS OF INCUBATION. Complete Labs and/or images reviewed: Labs reviewed by me, Image(s) reviewed by me Assessment/Plan Assessment/Plan Acute hypoxic respiratory failure: Oxygen by nasal cannula, chest x-ray, consult for Chronic hypercarbic respiratory failure Dependence on home oxygen Intractable abdominal pain resolved Perforated viscus and pneumoperitoneum, with history of gastric bypass, conservative management consult by Dr. Bird appreciated Left upper quadrant abscess status post drainage discontinued antibiotics Lactic acidosis, resolved Zenaida in the abdominal abscess aspirate: Fluconazole converted to p.o. Sepsis due to above Acute respiratory distress Diabetes with hyperglycemia AFib on Coumadin Morbid obesity Obstructive sleep apnea: CPAP Acute hypokalemia: Replace potassium Lipase elevated, mild Nutrition: Glucerna Plan discussed with: Patient My Orders Orders - PROMISE CASTANO MD Procedure Category Date Status Time Cleanse Wound With BRINA 02/11/25 In Process Mild Soap A 10:38 Date of Service: Feb 12, 2025 Billing Provider: PROMISE CASTANO MD Common Visit Codes: [id number] INP/OBS CARE(HIGH) PROMISE CASTANO MD Feb 12, 2025 10:53
[2025-02-12] MEDS: Glucerna Carbsteady SHAKE Stawberry 8oz PO SCH (13:16)
--- NOTE | 2025-02-12 16:51 | DVHPN2 ---
Progress Note - Dictate Date Seen: Feb 12, 2025 Medical Necessity Reason Pt with a Central, PICC or Fol: No vital signs Vital Sign Date Time Temp Pulse Resp B/P (MAP) Pulse Ox O2 Delivery O2 Flow Rate FiO2 02/12/25 14:47 80 16 95 02/12/25 14:39 Nasal Cannula* 4 36 02/12/25 13:05 144/78 02/12/25 12:47 98.1 98.1 Total Intake and Output 02/11/25 02/11/25 02/12/25 15:00 23:00 07:00 Intake Total 720 ml 100 ml Output Total 2200 ml 2190 ml Balance -1480 ml -2090 ml medications Current Medications Medications Dose Ordered Sig/Vincent Route Start Time Stop Time Status Last Admin Dose Admin Warfarin Sodium RX PROTOCOL PER PHARMACY PO 01/15/25 01:45 Cancel Ondansetron HCl 4 mg Q4HP PRN IV 01/15/25 01:45 02/12/25 16:08 4 MG Docusate Sodium 100 mg BIDPRN PRN PO 01/15/25 01:45 Acetaminophen 650 mg Q6HP PRN PO 01/15/25 01:45 02/10/25 01:41 650 MG Nitroglycerin 0.4 mg Q5MINP PRN SL 01/15/25 01:45 Pantoprazole Sodium 40 mg BID IV 01/15/25 10:00 02/12/25 09:19 40 MG Sodium Chloride 10 ml QSHIFT@10,22 IV 01/16/25 22:00 02/12/25 11:34 10 ML Hydralazine HCl 10 mg Q6HP PRN IV 01/16/25 20:00 Lorazepam 0.5 mg Q6HP PRN IV 01/17/25 07:45 02/12/25 14:31 0.5 MG Diagnostic Test (Pha) 1 strip Q6HR 01/17/25 18:00 02/12/25 11:54 1 STRIP Insulin Human Regular FOLLOW SLIDING SCALE Q6HR SC 01/17/25 18:00 02/12/25 11:53 2 UNITS Dextrose 50 ml UD IV 01/17/25 18:00 Metoprolol Tartrate 2.5 mg Q6HPRN PRN IV 01/19/25 13:00 Potassium Chloride 100 ml @ 50 mls/hr Q2H IV 01/26/25 17:30 01/26/25 21:29 UNV Albuterol 2.5 mg Q4HR NEB 02/03/25 06:00 02/12/25 14:39 2.5 MG Ipratropium [place] 0.5 mg Q4HR NEB 02/03/25 06:00 02/12/25 14:39 0.5 MG Albuterol 2.5 mg Q2HPRN PRN NEB 02/04/25 12:00 Ipratropium [place] 0.5 mg Q2HPRN PRN NEB 02/04/25 12:00 Ipratropium [place] 0.5 mg Q4HR NEB 02/05/25 14:00 Cancel Megestrol Acetate 400 mg DAILY PO 02/05/25 12:00 02/12/25 09:21 400 MG Enoxaparin Sodium 65 mg Q12HR SC 02/05/25 22:00 02/12/25 09:20 65 MG Furosemide 20 mg BIDD IV 02/05/25 18:00 02/12/25 05:54 20 MG Empaglifozin 10 mg DAILY PO 02/06/25 10:00 02/12/25 09:21 10 MG Acetaminophen/ Hydrocodone Bitart 1 tab Q4HP PRN PO 02/08/25 11:00 02/12/25 16:07 1 TAB Amiodarone HCl 200 mg Q12HR PO 02/09/25 22:00 02/12/25 09:20 200 MG Fluconazole 400 mg DAILY PO 02/11/25 10:00 02/12/25 09:20 400 MG Enteral Nutritional Formula 240 ml TIDWM PO 02/12/25 12:00 02/12/25 13:16 240 ML laboratory and microbiology Laboratory Tests 02/10/25 09:57 Test 02/10/25 09:57 Range/Units Serum Glucose 152 H 74-106 mg/dL Assessment/Plan Impression Acute hypoxemic respiratory failure Morbid obesity COPD- stable Pneumonia SBO Patient seen and examined Events Low oxygen requirements On 3 liters nasal cannula No distress Labs and imaging reviewed Management Supplemental oxygen Titrate to maintain sats 90% or above Incentive spirometry Prn bipap to use during sleep Continue antibiotics F/u cultures Bronchodilators Monitor renal function Monitor electrolytes Supplement as needed Pain control Avoid oversedation F/u general surgery DVT prophylaxis Dietary Evaluation Review Comments: 1. Advance TPN to meet at least 75% estimated needs 2. Contineu current POC Expected Outcomes/Goals: To meet >75% estimated needs Fu 2-3 days Plan discussed with: Patient MIK COLLAZO MD Feb 12, 2025 16:51
--- NOTE | 2025-02-12 17:33 | DVHPN2 ---
Progress Note - Dictate Date Seen: Feb 12, 2025 Medical Necessity Reason Pt with a Central, PICC or Fol: No Subjective Patient was seen and evaluated in follow up. Patient complains of generalized body aches. BS in the 150's. CT abd/pel is pending. Telemetry reviewed. vital signs Vital Sign Date Time Temp Pulse Resp B/P (MAP) Pulse Ox O2 Delivery O2 Flow Rate FiO2 02/12/25 12:47 98.1 88 16 144/78 (100) 98 98.1 02/12/25 10:30 Nasal Cannula* 4 36 Total Intake and Output 02/11/25 02/11/25 02/12/25 15:00 23:00 07:00 Intake Total 720 ml 100 ml Output Total 2200 ml 2190 ml Balance -1480 ml -2090 ml medications Current Medications Medications Dose Ordered Sig/Vincent Route Start Time Stop Time Status Last Admin Dose Admin Warfarin Sodium RX PROTOCOL PER PHARMACY PO 01/15/25 01:45 Cancel Ondansetron HCl 4 mg Q4HP PRN IV 01/15/25 01:45 02/12/25 12:01 4 MG Docusate Sodium 100 mg BIDPRN PRN PO 01/15/25 01:45 Acetaminophen 650 mg Q6HP PRN PO 01/15/25 01:45 02/10/25 01:41 650 MG Nitroglycerin 0.4 mg Q5MINP PRN SL 01/15/25 01:45 Pantoprazole Sodium 40 mg BID IV 01/15/25 10:00 02/12/25 09:19 40 MG Sodium Chloride 10 ml QSHIFT@10,22 IV 01/16/25 22:00 02/12/25 11:34 10 ML Hydralazine HCl 10 mg Q6HP PRN IV 01/16/25 20:00 Lorazepam 0.5 mg Q6HP PRN IV 01/17/25 07:45 02/12/25 03:15 0.5 MG Diagnostic Test (Pha) 1 strip Q6HR 01/17/25 18:00 02/12/25 11:54 1 STRIP Insulin Human Regular FOLLOW SLIDING SCALE Q6HR SC 01/17/25 18:00 02/12/25 11:53 2 UNITS Dextrose 50 ml UD IV 01/17/25 18:00 Metoprolol Tartrate 2.5 mg Q6HPRN PRN IV 01/19/25 13:00 Potassium Chloride 100 ml @ 50 mls/hr Q2H IV 01/26/25 17:30 01/26/25 21:29 UNV Albuterol 2.5 mg Q4HR NEB 02/03/25 06:00 02/12/25 10:30 2.5 MG Ipratropium [place] 0.5 mg Q4HR NEB 02/03/25 06:00 02/12/25 10:30 0.5 MG Albuterol 2.5 mg Q2HPRN PRN NEB 02/04/25 12:00 Ipratropium [place] 0.5 mg Q2HPRN PRN NEB 02/04/25 12:00 Ipratropium [place] 0.5 mg Q4HR NEB 02/05/25 14:00 Cancel Megestrol Acetate 400 mg DAILY PO 02/05/25 12:00 02/12/25 09:21 400 MG Enoxaparin Sodium 65 mg Q12HR SC 02/05/25 22:00 02/12/25 09:20 65 MG Furosemide 20 mg BIDD IV 02/05/25 18:00 02/12/25 05:54 20 MG Empaglifozin 10 mg DAILY PO 02/06/25 10:00 02/12/25 09:21 10 MG Acetaminophen/ Hydrocodone Bitart 1 tab Q4HP PRN PO 02/08/25 11:00 02/12/25 12:00 1 TAB Amiodarone HCl 200 mg Q12HR PO 02/09/25 22:00 02/12/25 09:20 200 MG Fluconazole 400 mg DAILY PO 02/11/25 10:00 02/12/25 09:20 400 MG Enteral Nutritional Formula 240 ml TIDWM PO 02/12/25 12:00 02/12/25 13:16 240 ML objective GENERAL: Alert and oriented x 3. No acute distress. EYES: PERRL, EOMI. Anicteric. HENT: Moist mucous membranes. LUNGS: Diminished breath sounds. CARDIOVASCULAR: Regular rate and rhythm. ABDOMEN: Soft, non-tender and non-distended. EXTREMITIES: No edema. NEUROLOGIC: No focal neurological deficits. SKIN: Warm, dry. laboratory and microbiology Laboratory Tests 02/10/25 09:57 Test 02/10/25 09:57 Range/Units Serum Glucose 152 H 74-106 mg/dL Problem List Acute decompensated HFpEF, NYHA class III. Paroxysmal Atrial fibrillation, Stage 3a (on Xarelto). Hypertension. Pneumoperitoneum. Sepsis. History of abdominal aortic aneurysm. Pulmonary hypertension. Type 2 diabetes mellitus. Morbid obesity. Assessment/Plan Continued all current supportive medical care. [place] for pain management. DVT and GI prophylactics. Diuretics with Lasix. IV Hydralazine for SBP >170. Metoprolol. Nitro SL. Additional plan as per the hospital course. Dietary Evaluation Review Comments: 1. Advance TPN to meet at least 75% estimated needs 2. Contineu current POC Expected Outcomes/Goals: To meet >75% estimated needs Fu 2-3 days Plan discussed with: Patient KRISTIN JOSEPH MD Feb 12, 2025 13:49
[2025-02-13] VITALS (18 sets, daily range): BP systolic 106–146; BP diastolic 60–74; PULSE 69–88; RESP 15–22; TEMP 97.2–98.8; O2SAT 93–100
--- NOTE | 2025-02-13 12:14 | DVHPN2 ---
Reviewed: Care Plan, H&P, Labs, Medications, Previous Orders, Radiology Changes from previous H/P or p: No Changes General: Per HPI Objective Vitals Vital Signs Date Time Temp Pulse Resp B/P (MAP) Pulse Ox O2 Delivery O2 Flow Rate FiO2 02/13/25 08:30 98.5 79 20 106/64 (78) 93 98.5 02/13/25 08:00 Nasal Cannula* 4 36 Intake/Output Intake and Output 02/13/25 07:00 Intake Total 2260 ml Output Total 4010 ml Balance -1750 ml Intake Oral 2260 ml Output Urine Total 4000 ml Drainage Total 10 ml # Bowel Movements 4 General Appearance: Alert, Oriented X3, No acute distress HEENT: Atraumatic, PERRLA, EOMI, Mucous membr. moist/pink Neck: Supple Lungs: Clear to auscultation, Normal air movement Cardiovascular: Regular rate, Normal S1, Normal S2, No murmurs, Gallops, Rubs Abdomen: Normal bowel sounds, Soft, No tenderness Neuro: Cranial nerves 3-12 NL Psych/Mental Status: Mental status NL Medications Current Medications Medications Dose Ordered Sig/Vincent Route Start Time Stop Time Status Last Admin Dose Admin Warfarin Sodium RX PROTOCOL PER PHARMACY PO 01/15/25 01:45 Cancel Ondansetron HCl 4 mg Q4HP PRN IV 01/15/25 01:45 02/13/25 10:29 4 MG Docusate Sodium 100 mg BIDPRN PRN PO 01/15/25 01:45 Acetaminophen 650 mg Q6HP PRN PO 01/15/25 01:45 02/10/25 01:41 650 MG Nitroglycerin 0.4 mg Q5MINP PRN SL 01/15/25 01:45 Pantoprazole Sodium 40 mg BID IV 01/15/25 10:00 02/13/25 09:31 40 MG Sodium Chloride 10 ml QSHIFT@10,22 IV 01/16/25 22:00 02/12/25 22:36 10 ML Hydralazine HCl 10 mg Q6HP PRN IV 01/16/25 20:00 Lorazepam 0.5 mg Q6HP PRN IV 01/17/25 07:45 02/13/25 02:41 0.5 MG Diagnostic Test (Pha) 1 strip Q6HR 01/17/25 18:00 02/13/25 06:17 1 STRIP Insulin Human Regular FOLLOW SLIDING SCALE Q6HR SC 01/17/25 18:00 02/13/25 11:10 2 UNITS Dextrose 50 ml UD IV 01/17/25 18:00 Metoprolol Tartrate 2.5 mg Q6HPRN PRN IV 01/19/25 13:00 Potassium Chloride 100 ml @ 50 mls/hr Q2H IV 01/26/25 17:30 01/26/25 21:29 UNV Albuterol 2.5 mg Q4HR NEB 02/03/25 06:00 02/13/25 06:29 2.5 MG Ipratropium [place] 0.5 mg Q4HR NEB 02/03/25 06:00 02/13/25 06:29 0.5 MG Albuterol 2.5 mg Q2HPRN PRN NEB 02/04/25 12:00 Ipratropium [place] 0.5 mg Q2HPRN PRN NEB 02/04/25 12:00 Ipratropium [place] 0.5 mg Q4HR NEB 02/05/25 14:00 Cancel Megestrol Acetate 400 mg DAILY PO 02/05/25 12:00 02/13/25 09:31 400 MG Enoxaparin Sodium 65 mg Q12HR SC 02/05/25 22:00 02/13/25 09:33 65 MG Furosemide 20 mg BIDD IV 02/05/25 18:00 02/13/25 05:35 20 MG Empaglifozin 10 mg DAILY PO 02/06/25 10:00 02/13/25 09:34 10 MG Acetaminophen/ Hydrocodone Bitart 1 tab Q4HP PRN PO 02/08/25 11:00 02/13/25 10:38 1 TAB Amiodarone HCl 200 mg Q12HR PO 02/09/25 22:00 02/13/25 09:34 200 MG Fluconazole 400 mg DAILY PO 02/11/25 10:00 02/13/25 09:31 400 MG Enteral Nutritional Formula 240 ml TIDWM PO 02/12/25 12:00 02/12/25 18:00 240 ML Laboratory Results Laboratory Tests 02/10/25 09:57 Urinalysis Test 01/15/25 01:59 Urine Color Light-yellow (Yellow) Urine Clarity Clear (Clear) Urine pH 6.0 (5.0-9.0) Urine Specific [place] 1.018 (1.001-1.035) Urine Protein Negative (Negative) Urine Ketones Negative (Negative) Urine Blood Negative /uL (Negative) Urine Nitrite Negative (Negative) Urine Bilirubin Negative (Negative) Urine Urobilinogen Normal mg/dL (Negative) Urine Leukocyte Esterase Negative /uL (Negative) Urine RBC <1 /hpf (0 - 3) Urine Microscopic WBC /HPF (0-3) Urine Squamous Epithelial Cells None seen /hpf (<5) Urine Bacteria None seen /hpf (None Seen) Urine Glucose 4+ mg/dL (Normal) H Microbiology Microbiology Date/Time Source Procedure Growth Status 02/09/25 11:50 Nose MRSA Screen - Final Complete 01/25/25 09:35 Aspirate Gram Stain - Final Complete 01/25/25 09:35 Body Fluid Culture - Final Escherichia coli Presumptive Zenaida albicans Complete 01/15/25 00:28 Blood Blood Culture - Final NO GROWTH AFTER 5 DAYS OF INCUBATION. Complete Assessment/Plan Assessment/Plan Acute hypoxic respiratory failure: Oxygen by nasal cannula, chest x-ray, consult for Chronic hypercarbic respiratory failure Dependence on home oxygen Intractable abdominal pain resolved Perforated viscus and pneumoperitoneum, with history of gastric bypass, conservative management consult by Dr. Bird appreciated Left upper quadrant abscess status post drainage discontinued antibiotics Lactic acidosis, resolved Zenaida in the abdominal abscess aspirate: Fluconazole converted to p.o. Sepsis due to above Acute respiratory distress Diabetes with hyperglycemia AFib on Coumadin Morbid obesity Obstructive sleep apnea: CPAP Acute hypokalemia: Replace potassium Lipase elevated, mild Nutrition: Glucerna Continue Physical therapy Plan discussed with: Patient Date of Service: Feb 13, 2025 Billing Provider: PROMISE CASTANO MD Common Visit Codes: [id number] CARE 30-74 MIN PROMISE CASTANO MD Feb 13, 2025 12:14
--- NOTE | 2025-02-13 12:25 | DVH ---
Indication: f/u perisplenic abscess Technique: CT axial images of the abdomen and pelvis are obtained without contrast. Coronal and sagit leidy reformats were obtained. Radiation Dose Information: CTDI volume is 25.48 mGy. Dose-length product is 1528.77 mGy*cm Comparison: 01/18/2025, 01/16/2025, FINDINGS: There is limited interpretation of the abdomen and pelvis without administration of intravenous contr ast. Lung bases demonstrate small left, tiny right pleural effusions. Bibasilar atelectasis. Left lower l obe consolidation. Adrenal glands unremarkable. Perisplenic/subcapsular collection extending to the subdiaphragmatic reg ion measuring 13.2 x 1.4 cm previously 16.7 x 3.6 cm on 01/16/2025. There is a pigtail catheter that is withdrawn into the left lateral abdominal soft tissues. Pancreas unremarkable in shape. Liver unremarkable in shape. Cholecystectomy. Kidneys demonstrate no hydronephrosis / nephrolithiasis. Bilateral renal cysts measuring up to 9.4 c m in the left kidney. Postsurgical changes stomach/gastric bypass. Moderate distention of the gastric remnant. Small-bowel loops are normal in caliber. Moderate to large volume stool within the colon. Abdominal aortic atherosclerotic disease. Bladder decompressed by Mar[place] catheter. Presacral edema. Soft tissue edema /anasarca. Sclerotic changes of the bilateral femoral heads. Moderate to advanced thoracolumbar degenerative dis c disease and facet hypertrophic changes. IMPRESSION: Splenic/ perisplenic collection extending into the subdiaphragmatic space measuring 13.2 x 1.4 cm, pr eviously 16.7 x 3.6 cm. Pigtail catheter was withdrawn into the left abdominal soft tissues and no lo nger plate positioned within this collection. Small left and tiny right pleural effusions. Left lower lobe airspace consolidation. Soft tissue edema / anasarca. Gastrojejunostomy. Moderate distention of the gastric remnant. Moderate to large volume stool in the colon. 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 Other findings as described.
[2025-02-13] MEDS: IPRATROPIUM BROM 0.5 MG/2.5ML INH SOL ONE ×2 (13:57→18:07)
[2025-02-13] MEDS: ALBUTEROL SULF 2.5 MG/0.5ML(0.5%) NEB SOLN ONE ×2 (13:57→18:07)
--- NOTE | 2025-02-13 16:27 | DVHPN2 ---
Progress Note - Dictate Date Seen: Feb 13, 2025 Medical Necessity Reason Pt with a Central, PICC or Fol: No Subjective E: no major events o/n. no complaints. vital signs Vital Sign Date Time Temp Pulse Resp B/P (MAP) Pulse Ox O2 Delivery O2 Flow Rate FiO2 02/13/25 14:10 77 16 98 02/13/25 14:02 Nasal Cannula* 4 36 02/13/25 12:18 97.2 122/68 (86) 97.2 Total Intake and Output 02/12/25 02/12/25 02/13/25 15:00 23:00 07:00 Intake Total 1360 ml 900 ml Output Total 2800 ml 1210 ml Balance -1440 ml -310 ml medications Current Medications Medications Dose Ordered Sig/Vincent Route Start Time Stop Time Status Last Admin Dose Admin Warfarin Sodium RX PROTOCOL PER PHARMACY PO 01/15/25 01:45 Cancel Ondansetron HCl 4 mg Q4HP PRN IV 01/15/25 01:45 02/13/25 10:29 4 MG Docusate Sodium 100 mg BIDPRN PRN PO 01/15/25 01:45 Acetaminophen 650 mg Q6HP PRN PO 01/15/25 01:45 02/10/25 01:41 650 MG Nitroglycerin 0.4 mg Q5MINP PRN SL 01/15/25 01:45 Pantoprazole Sodium 40 mg BID IV 01/15/25 10:00 02/13/25 09:31 40 MG Sodium Chloride 10 ml QSHIFT@10,22 IV 01/16/25 22:00 02/12/25 22:36 10 ML Hydralazine HCl 10 mg Q6HP PRN IV 01/16/25 20:00 Lorazepam 0.5 mg Q6HP PRN IV 01/17/25 07:45 02/13/25 13:12 0.5 MG Diagnostic Test (Pha) 1 strip Q6HR 01/17/25 18:00 02/13/25 06:17 1 STRIP Insulin Human Regular FOLLOW SLIDING SCALE Q6HR SC 01/17/25 18:00 02/13/25 11:10 2 UNITS Dextrose 50 ml UD IV 01/17/25 18:00 Metoprolol Tartrate 2.5 mg Q6HPRN PRN IV 01/19/25 13:00 Potassium Chloride 100 ml @ 50 mls/hr Q2H IV 01/26/25 17:30 01/26/25 21:29 UNV Albuterol 2.5 mg Q4HR NEB 02/03/25 06:00 02/13/25 14:02 2.5 MG Ipratropium [place] 0.5 mg Q4HR NEB 02/03/25 06:00 02/13/25 14:02 0.5 MG Albuterol 2.5 mg Q2HPRN PRN NEB 02/04/25 12:00 Ipratropium [place] 0.5 mg Q2HPRN PRN NEB 02/04/25 12:00 Ipratropium [place] 0.5 mg Q4HR NEB 02/05/25 14:00 Cancel Megestrol Acetate 400 mg DAILY PO 02/05/25 12:00 02/13/25 09:31 400 MG Enoxaparin Sodium 65 mg Q12HR SC 02/05/25 22:00 02/13/25 09:33 65 MG Furosemide 20 mg BIDD IV 02/05/25 18:00 02/13/25 05:35 20 MG Empaglifozin 10 mg DAILY PO 02/06/25 10:00 02/13/25 09:34 10 MG Acetaminophen/ Hydrocodone Bitart 1 tab Q4HP PRN PO 02/08/25 11:00 02/13/25 10:38 1 TAB Amiodarone HCl 200 mg Q12HR PO 02/09/25 22:00 02/13/25 09:34 200 MG Fluconazole 400 mg DAILY PO 02/11/25 10:00 02/13/25 09:31 400 MG Enteral Nutritional Formula 240 ml TIDWM PO 02/12/25 12:00 02/12/25 18:00 240 ML objective GEN: NAD ABD: soft. NT. CT: dislodged LUQ pigtail catheter. smaller fluid collection laboratory and microbiology Laboratory Tests 02/10/25 09:57 Test 02/10/25 09:57 Range/Units Serum Glucose 152 H 74-106 mg/dL Assessment/Plan A: 1. Perforated viscus sealed with conservative tx 2. LUQ abscess s/p percutaneous drainage but drain disloged. P: 1. removed drain 2. if he develops WBC again, consider IR drainage again. Dietary Evaluation Review Comments: 1. Advance TPN to meet at least 75% estimated needs 2. Contineu current POC Expected Outcomes/Goals: To meet >75% estimated needs Fu 2-3 days Plan discussed with: Patient JACKLYN OLMEDO MD Feb 13, 2025 16:27
--- NOTE | 2025-02-13 18:43 | DVHPN2 ---
Progress Note - Dictate Date Seen: Feb 13, 2025 Medical Necessity Reason Pt with a Central, PICC or Fol: No vital signs Vital Sign Date Time Temp Pulse Resp B/P (MAP) Pulse Ox O2 Delivery O2 Flow Rate FiO2 02/13/25 18:40 86 22 100 02/13/25 18:31 Nasal Cannula* 4 36 02/13/25 17:50 129/66 02/13/25 17:16 97.7 97.7 Total Intake and Output 02/12/25 02/12/25 02/13/25 14:59 22:59 06:59 Intake Total 1360 ml 900 ml Output Total 2800 ml 1210 ml Balance -1440 ml -310 ml medications Current Medications Medications Dose Ordered Sig/Vincent Route Start Time Stop Time Status Last Admin Dose Admin Warfarin Sodium RX PROTOCOL PER PHARMACY PO 01/15/25 01:45 Cancel Ondansetron HCl 4 mg Q4HP PRN IV 01/15/25 01:45 02/13/25 10:29 4 MG Docusate Sodium 100 mg BIDPRN PRN PO 01/15/25 01:45 Acetaminophen 650 mg Q6HP PRN PO 01/15/25 01:45 02/10/25 01:41 650 MG Nitroglycerin 0.4 mg Q5MINP PRN SL 01/15/25 01:45 Pantoprazole Sodium 40 mg BID IV 01/15/25 10:00 02/13/25 09:31 40 MG Sodium Chloride 10 ml QSHIFT@10,22 IV 01/16/25 22:00 02/12/25 22:36 10 ML Hydralazine HCl 10 mg Q6HP PRN IV 01/16/25 20:00 Lorazepam 0.5 mg Q6HP PRN IV 01/17/25 07:45 02/13/25 13:12 0.5 MG Diagnostic Test (Pha) 1 strip Q6HR 01/17/25 18:00 02/13/25 06:17 1 STRIP Insulin Human Regular FOLLOW SLIDING SCALE Q6HR SC 01/17/25 18:00 02/13/25 17:52 2 UNITS Dextrose 50 ml UD IV 01/17/25 18:00 Metoprolol Tartrate 2.5 mg Q6HPRN PRN IV 01/19/25 13:00 Potassium Chloride 100 ml @ 50 mls/hr Q2H IV 01/26/25 17:30 01/26/25 21:29 UNV Albuterol 2.5 mg Q4HR NEB 02/03/25 06:00 02/13/25 18:35 2.5 MG Ipratropium [place] 0.5 mg Q4HR NEB 02/03/25 06:00 02/13/25 18:35 0.5 MG Albuterol 2.5 mg Q2HPRN PRN NEB 02/04/25 12:00 Ipratropium [place] 0.5 mg Q2HPRN PRN NEB 02/04/25 12:00 Ipratropium [place] 0.5 mg Q4HR NEB 02/05/25 14:00 Cancel Megestrol Acetate 400 mg DAILY PO 02/05/25 12:00 02/13/25 09:31 400 MG Enoxaparin Sodium 65 mg Q12HR SC 02/05/25 22:00 02/13/25 09:33 65 MG Furosemide 20 mg BIDD IV 02/05/25 18:00 02/13/25 17:50 20 MG Empaglifozin 10 mg DAILY PO 02/06/25 10:00 02/13/25 09:34 10 MG Acetaminophen/ Hydrocodone Bitart 1 tab Q4HP PRN PO 02/08/25 11:00 02/13/25 10:38 1 TAB Amiodarone HCl 200 mg Q12HR PO 02/09/25 22:00 02/13/25 09:34 200 MG Fluconazole 400 mg DAILY PO 02/11/25 10:00 02/13/25 09:31 400 MG Enteral Nutritional Formula 240 ml TIDWM PO 02/12/25 12:00 02/12/25 18:00 240 ML laboratory and microbiology Laboratory Tests 02/10/25 09:57 Test 02/10/25 09:57 Range/Units Serum Glucose 152 H 74-106 mg/dL Assessment/Plan Impression Acute hypoxemic respiratory failure Morbid obesity COPD- stable Pneumonia SBO Patient seen and examined Events Low oxygen requirements On 3 liters nasal cannula No acute events Labs and imaging reviewed Management Supplemental oxygen Titrate to maintain sats 90% or above Incentive spirometry Prn bipap to use during sleep Continue antibiotics F/u cultures Bronchodilators Monitor renal function Monitor electrolytes Supplement as needed Pain control Avoid oversedation F/u general surgery Awaiting placement DVT prophylaxis Dietary Evaluation Review Comments: 1. Advance TPN to meet at least 75% estimated needs 2. Contineu current POC Expected Outcomes/Goals: To meet >75% estimated needs Fu 2-3 days Plan discussed with: Patient MIK COLLAZO MD Feb 13, 2025 18:43
--- NOTE | 2025-02-13 23:22 | DVHPN2 ---
Progress Note - Dictate Date Seen: Feb 13, 2025 Medical Necessity Reason Pt with a Central, PICC or Fol: No Subjective Patient was seen and evaluated in follow up. No overnight events. Patient is on 4 LPM NC. BS in the 150s. CT abd/pel shows splenic/ perisplenic collection extending into the subdiaphragmatic space measuring 13.2 x 1.4 cm, previously 16.7 x 3.6 cm. Pigtail catheter was withdrawn into the left abdominal soft tissues and no longer plate positioned within this collection. Small left and tiny right pleural effusions. Left lower lobe airspace consolidation. Soft tissue edema / anasarca. Gastrojejunostomy. Moderate distention of the gastric remnant. Moderate to large volume stool in the colon. 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 Telemetry reviewed. vital signs Vital Sign Date Time Temp Pulse Resp B/P (MAP) Pulse Ox O2 Delivery O2 Flow Rate FiO2 02/13/25 23:06 82 18 100 02/13/25 23:00 Nasal Cannula* 4 36 02/13/25 17:50 129/66 02/13/25 17:16 97.7 97.7 Total Intake and Output 02/12/25 02/12/25 02/13/25 15:00 23:00 07:00 Intake Total 1360 ml 900 ml Output Total 2800 ml 1210 ml Balance -1440 ml -310 ml medications Current Medications Medications Dose Ordered Sig/Vincent Route Start Time Stop Time Status Last Admin Dose Admin Warfarin Sodium RX PROTOCOL PER PHARMACY PO 01/15/25 01:45 Cancel Ondansetron HCl 4 mg Q4HP PRN IV 01/15/25 01:45 02/13/25 20:52 4 MG Docusate Sodium 100 mg BIDPRN PRN PO 01/15/25 01:45 Acetaminophen 650 mg Q6HP PRN PO 01/15/25 01:45 02/10/25 01:41 650 MG Nitroglycerin 0.4 mg Q5MINP PRN SL 01/15/25 01:45 Pantoprazole Sodium 40 mg BID IV 01/15/25 10:00 02/13/25 22:16 40 MG Sodium Chloride 10 ml QSHIFT@10,22 IV 01/16/25 22:00 02/13/25 22:16 10 ML Hydralazine HCl 10 mg Q6HP PRN IV 01/16/25 20:00 Lorazepam 0.5 mg Q6HP PRN IV 01/17/25 07:45 02/13/25 22:15 0.5 MG Diagnostic Test (Pha) 1 strip Q6HR 01/17/25 18:00 02/13/25 06:17 1 STRIP Insulin Human Regular FOLLOW SLIDING SCALE Q6HR SC 01/17/25 18:00 02/13/25 17:52 2 UNITS Dextrose 50 ml UD IV 01/17/25 18:00 Metoprolol Tartrate 2.5 mg Q6HPRN PRN IV 01/19/25 13:00 Potassium Chloride 100 ml @ 50 mls/hr Q2H IV 01/26/25 17:30 01/26/25 21:29 UNV Albuterol 2.5 mg Q4HR NEB 02/03/25 06:00 02/13/25 23:02 2.5 MG Ipratropium [place] 0.5 mg Q4HR NEB 02/03/25 06:00 02/13/25 23:03 0.5 MG Albuterol 2.5 mg Q2HPRN PRN NEB 02/04/25 12:00 Ipratropium [place] 0.5 mg Q2HPRN PRN NEB 02/04/25 12:00 Ipratropium [place] 0.5 mg Q4HR NEB 02/05/25 14:00 Cancel Megestrol Acetate 400 mg DAILY PO 02/05/25 12:00 02/13/25 09:31 400 MG Enoxaparin Sodium 65 mg Q12HR SC 02/05/25 22:00 02/13/25 22:15 65 MG Furosemide 20 mg BIDD IV 02/05/25 18:00 02/13/25 17:50 20 MG Empaglifozin 10 mg DAILY PO 02/06/25 10:00 02/13/25 09:34 10 MG Acetaminophen/ Hydrocodone Bitart 1 tab Q4HP PRN PO 02/08/25 11:00 02/13/25 20:51 1 TAB Amiodarone HCl 200 mg Q12HR PO 02/09/25 22:00 02/13/25 22:16 200 MG Fluconazole 400 mg DAILY PO 02/11/25 10:00 02/13/25 09:31 400 MG Enteral Nutritional Formula 240 ml TIDWM PO 02/12/25 12:00 02/12/25 18:00 240 ML objective GENERAL: Alert and oriented x 3. No acute distress. EYES: PERRL, EOMI. Anicteric. HENT: Moist mucous membranes. LUNGS: Diminished breath sounds. CARDIOVASCULAR: Regular rate and rhythm. ABDOMEN: Soft, non-tender and non-distended. EXTREMITIES: No edema. NEUROLOGIC: No focal neurological deficits. SKIN: Warm, dry. laboratory and microbiology Laboratory Tests 02/10/25 09:57 Test 02/10/25 09:57 Range/Units Serum Glucose 152 H 74-106 mg/dL Problem List Acute decompensated HFpEF, NYHA class III. Paroxysmal Atrial fibrillation, Stage 3a (on Xarelto). Hypertension. Pneumoperitoneum. Sepsis. History of abdominal aortic aneurysm. Pulmonary hypertension. Type 2 diabetes mellitus. Morbid obesity. Assessment/Plan Continued all current supportive medical care. [place] for pain management. DVT and GI prophylactics. Diuretics with Lasix. IV Hydralazine for SBP >170. Metoprolol. Nitro SL. Additional plan as per the hospital course. Dietary Evaluation Review Comments: 1. Advance TPN to meet at least 75% estimated needs 2. Contineu current POC Expected Outcomes/Goals: To meet >75% estimated needs Fu 2-3 days Plan discussed with: Patient KRISTIN JOSEPH MD Feb 13, 2025 23:22
[2025-02-14] VITALS (20 sets, daily range): BP systolic 108–132; BP diastolic 52–83; PULSE 67–85; RESP 17–21; TEMP 96.7–99; O2SAT 90–100
[2025-02-14 06:23] LABS: Eosinophils # (auto) 0.3 10 ^3/uL (0-0.8); Platelet Count (auto) 318 10^3/uL (140-450)
[2025-02-14 06:25] LABS: Basophils # (auto) 0.1 10 ^3/uL (0-0.2); Basophils % (auto) 0.7 % (0.0-2.0); Eosinophils % (auto) 3.4 % (0.0-7.0); Hematocrit 26.7 % (41.0-53.0); Hemoglobin 8.1 g/dL (13.5-17.5); Lymphocytes % (auto) 12.8 % (10.0-50.0); Mean Corpuscular Hemoglobin 22.5 pg (28.0-32.0); Mean Corpuscular Hgb Conc. 30.4 g/dL (32.0-36.0); Neutrophils # (auto) 5.1 10 ^3/uL (1.6-8.6); Neutrophils % (auto) 69.1 % (37.0-80.0); Nucleated Red Blood Cells % 0.2 %; Red Blood Cells 3.61 10^6/uL (4.5-5.90); Red Cell Distribution Width 20.4 % (11.8-14.3); White Blood Cell 7.5 10^3/uL (4.4-10.8)
[2025-02-14 06:36] LABS: Alanine Aminotransferase 19 U/L (7-40); Alkaline Phosphatase 72 U/L (46-116); Anion Gap 5 (5-15); BUN/Creatinine Ratio 18.9 (10.0-20.0); Blood Urea Nitrogen 14 mg/dL (9-23); Calcium 8.8 mg/dL (8.7-10.4); Potassium 3.8 mmol/L (3.5-5.1); Sodium 138 mmol/L (136-145); Total Protein 7.1 g/dL (5.7-8.2)
[2025-02-14 06:37] LABS: Albumin 3.5 g/dL (3.2-4.8); Aspartate Aminotransferase 15 U/L (<34)
[2025-02-14 06:38] LABS: Bilirubin, Total < 0.2 mg/dL (0.2-1.0); Carbon Dioxide 38 mmol/L (20-31); Chloride 95 mmol/L (98-107); Glucose 119 mg/dL (74-106)
--- NOTE | 2025-02-14 10:19 | DVHPN2 ---
Reviewed: Care Plan, H&P, Labs, Medications, Previous Orders, Radiology General: Per HPI Objective Vitals Vital Signs Date Time Temp Pulse Resp B/P (MAP) Pulse Ox O2 Delivery O2 Flow Rate FiO2 02/14/25 09:53 82 18 100 02/14/25 09:46 Nasal Cannula 4.0 02/14/25 09:46 36 02/14/25 08:14 98.1 109/55 (73) 98.1 Intake/Output Intake and Output 02/14/25 07:00 Intake Total 1180 ml Output Total 3275 ml Balance -2095 ml Intake Oral 1180 ml Output Urine Total 3275 ml # Bowel Movements 2 General Appearance: Alert, Oriented X3, No acute distress HEENT: Atraumatic, PERRLA, EOMI, Mucous membr. moist/pink Neck: Supple Lungs: Clear to auscultation, Normal air movement Cardiovascular: Regular rate, Normal S1, Normal S2, No murmurs, Gallops, Rubs Abdomen: Normal bowel sounds, Soft, No tenderness Neuro: Cranial nerves 3-12 NL Psych/Mental Status: Mental status NL Medications Current Medications Medications Dose Ordered Sig/Vincent Route Start Time Stop Time Status Last Admin Dose Admin Warfarin Sodium RX PROTOCOL PER PHARMACY PO 01/15/25 01:45 Cancel Pantoprazole Sodium 40 mg BID IV 01/15/25 10:00 02/14/25 08:33 40 MG Sodium Chloride 10 ml QSHIFT@10,22 IV 01/16/25 22:00 02/14/25 08:33 10 ML Hydralazine HCl 10 mg Q6HP PRN IV 01/16/25 20:00 Lorazepam 0.5 mg Q6HP PRN IV 01/17/25 07:45 02/14/25 05:50 0.5 MG Diagnostic Test (Pha) 1 strip Q6HR 01/17/25 18:00 02/14/25 05:24 1 STRIP Insulin Human Regular FOLLOW SLIDING SCALE Q6HR SC 01/17/25 18:00 02/14/25 00:01 2 UNITS Dextrose 50 ml UD IV 01/17/25 18:00 Metoprolol Tartrate 2.5 mg Q6HPRN PRN IV 01/19/25 13:00 Potassium Chloride 100 ml @ 50 mls/hr Q2H IV 01/26/25 17:30 01/26/25 21:29 UNV Albuterol 2.5 mg Q4HR NEB 02/03/25 06:00 02/14/25 09:46 2.5 MG Ipratropium [place] 0.5 mg Q4HR NEB 02/03/25 06:00 02/14/25 09:46 0.5 MG Albuterol 2.5 mg Q2HPRN PRN NEB 02/04/25 12:00 Ipratropium [place] 0.5 mg Q2HPRN PRN NEB 02/04/25 12:00 Ipratropium [place] 0.5 mg Q4HR NEB 02/05/25 14:00 Cancel Megestrol Acetate 400 mg DAILY PO 02/05/25 12:00 02/14/25 08:34 400 MG Enoxaparin Sodium 65 mg Q12HR SC 02/05/25 22:00 02/14/25 08:34 65 MG Furosemide 20 mg BIDD IV 02/05/25 18:00 02/14/25 05:24 20 MG Empaglifozin 10 mg DAILY PO 02/06/25 10:00 02/14/25 08:35 10 MG Acetaminophen/ Hydrocodone Bitart 1 tab Q4HP PRN PO 02/08/25 11:00 02/14/25 09:39 1 TAB Amiodarone HCl 200 mg Q12HR PO 02/09/25 22:00 02/14/25 08:34 200 MG Fluconazole 400 mg DAILY PO 02/11/25 10:00 02/14/25 08:34 400 MG Enteral Nutritional Formula 240 ml TIDWM PO 02/12/25 12:00 02/14/25 08:00 240 ML Laboratory Results Laboratory Tests 02/14/25 05:40 Chemistry Test 02/14/25 05:40 Albumin 3.5 g/dL (3.2-4.8) Calcium Level 8.8 mg/dL (8.7-10.4) Total Protein 7.1 g/dL (5.7-8.2) LFT Test 02/14/25 05:40 Alanine Aminotransferase (ALT) 19 U/L (7-40) Alkaline Phosphatase 72 U/L (46-116) Aspartate Amino Transferase (AST) 15 U/L (<34) Total Bilirubin < 0.2 mg/dL (0.2-1.0) L Urinalysis Test 01/15/25 01:59 Urine Color Light-yellow (Yellow) Urine Clarity Clear (Clear) Urine pH 6.0 (5.0-9.0) Urine Specific [place] 1.018 (1.001-1.035) Urine Protein Negative (Negative) Urine Ketones Negative (Negative) Urine Blood Negative /uL (Negative) Urine Nitrite Negative (Negative) Urine Bilirubin Negative (Negative) Urine Urobilinogen Normal mg/dL (Negative) Urine Leukocyte Esterase Negative /uL (Negative) Urine RBC <1 /hpf (0 - 3) Urine Microscopic WBC /HPF (0-3) Urine Squamous Epithelial Cells None seen /hpf (<5) Urine Bacteria None seen /hpf (None Seen) Urine Glucose 4+ mg/dL (Normal) H Microbiology Microbiology Date/Time Source Procedure Growth Status 02/09/25 11:50 Nose MRSA Screen - Final Complete 01/25/25 09:35 Aspirate Gram Stain - Final Complete 01/25/25 09:35 Body Fluid Culture - Final Escherichia coli Presumptive Zenaida albicans Complete 01/15/25 00:28 Blood Blood Culture - Final NO GROWTH AFTER 5 DAYS OF INCUBATION. Complete Labs and/or images reviewed: Labs reviewed by me, Image(s) reviewed by me Assessment/Plan Assessment/Plan Acute hypoxic respiratory failure: Oxygen by nasal cannula, chest x-ray, consult for Chronic hypercarbic respiratory failure Dependence on home oxygen Intractable abdominal pain resolved Perforated viscus and pneumoperitoneum, with history of gastric bypass, conservative management consult by Dr. Bird appreciated Left upper quadrant abscess status post drainage discontinued antibiotics Lactic acidosis, resolved Zenaida in the abdominal abscess aspirate: Fluconazole converted to p.o. Sepsis due to above Acute respiratory distress Diabetes with hyperglycemia AFib on Coumadin Morbid obesity Obstructive sleep apnea: CPAP Acute hypokalemia: Replace potassium Lipase elevated, mild Nutrition: Glucerna Continue Physical therapy Plan discussed with: Patient My Orders Orders - PROMISE CASTANO MD Procedure Category Date Status Time Consistent DIET 02/13/25 Transmitted Carb(Ccho)Diabetes Lunch PROMISE CASTANO MD Feb 14, 2025 10:19
--- NOTE | 2025-02-14 14:07 | DVHPN2 ---
Progress Note - Dictate Date Seen: Feb 14, 2025 Medical Necessity Reason Pt with a Central, PICC or Fol: No vital signs Vital Sign Date Time Temp Pulse Resp B/P (MAP) Pulse Ox O2 Delivery O2 Flow Rate FiO2 02/14/25 13:15 84 21 100 02/14/25 13:07 Nasal Cannula 4.0 02/14/25 13:07 36 02/14/25 12:25 96.7 132/70 (90) 96.7 Total Intake and Output 02/13/25 02/13/25 02/14/25 15:00 23:00 07:00 Intake Total 700 ml 480 ml Output Total 1300 ml 1975 ml Balance -600 ml -1495 ml medications Current Medications Medications Dose Ordered Sig/Vincent Route Start Time Stop Time Status Last Admin Dose Admin Warfarin Sodium RX PROTOCOL PER PHARMACY PO 01/15/25 01:45 Cancel Sodium Chloride 10 ml QSHIFT@10,22 IV 01/16/25 22:00 02/14/25 08:33 10 ML Hydralazine HCl 10 mg Q6HP PRN IV 01/16/25 20:00 Lorazepam 0.5 mg Q6HP PRN IV 01/17/25 07:45 02/14/25 05:50 0.5 MG Diagnostic Test (Pha) 1 strip Q6HR 01/17/25 18:00 02/14/25 11:51 1 STRIP Insulin Human Regular FOLLOW SLIDING SCALE Q6HR SC 01/17/25 18:00 02/14/25 00:01 2 UNITS Dextrose 50 ml UD IV 01/17/25 18:00 Metoprolol Tartrate 2.5 mg Q6HPRN PRN IV 01/19/25 13:00 Potassium Chloride 100 ml @ 50 mls/hr Q2H IV 01/26/25 17:30 01/26/25 21:29 UNV Albuterol 2.5 mg Q4HR NEB 02/03/25 06:00 02/14/25 13:07 2.5 MG Ipratropium [place] 0.5 mg Q4HR NEB 02/03/25 06:00 02/14/25 13:07 0.5 MG Albuterol 2.5 mg Q2HPRN PRN NEB 02/04/25 12:00 Ipratropium [place] 0.5 mg Q2HPRN PRN NEB 02/04/25 12:00 Ipratropium [place] 0.5 mg Q4HR NEB 02/05/25 14:00 Cancel Megestrol Acetate 400 mg DAILY PO 02/05/25 12:00 02/14/25 08:34 400 MG Enoxaparin Sodium 65 mg Q12HR SC 02/05/25 22:00 02/14/25 08:34 65 MG Furosemide 20 mg BIDD IV 02/05/25 18:00 02/14/25 05:24 20 MG Empaglifozin 10 mg DAILY PO 02/06/25 10:00 02/14/25 08:35 10 MG Acetaminophen/ Hydrocodone Bitart 1 tab Q4HP PRN PO 02/08/25 11:00 02/14/25 09:39 1 TAB Amiodarone HCl 200 mg Q12HR PO 02/09/25 22:00 02/14/25 08:34 200 MG Fluconazole 400 mg DAILY PO 02/11/25 10:00 02/14/25 08:34 400 MG Enteral Nutritional Formula 240 ml TIDWM PO 02/12/25 12:00 02/14/25 11:35 240 ML laboratory and microbiology Laboratory Tests 02/14/25 05:40 Test 02/14/25 05:40 Range/Units Serum Glucose 119 H 74-106 mg/dL Assessment/Plan Impression Acute hypoxemic respiratory failure Morbid obesity COPD- stable Pneumonia SBO Patient seen and examined Events Low oxygen requirements On 3 liters nasal cannula No distress Labs and imaging reviewed Management Supplemental oxygen Titrate to maintain sats 90% or above Incentive spirometry Prn bipap to use during sleep Continue antibiotics F/u cultures Bronchodilators Monitor renal function Monitor electrolytes Supplement as needed Pain control Avoid oversedation F/u general surgery Awaiting placement DVT prophylaxis Dietary Evaluation Review Comments: 1. Advance TPN to meet at least 75% estimated needs 2. Contineu current POC Expected Outcomes/Goals: To meet >75% estimated needs Fu 2-3 days Plan discussed with: Patient MIK COLLAZO MD Feb 14, 2025 14:07
[2025-02-14] MEDS: ONDANSETRON HCL 4 MG/2 ML VIAL IV PRN (23:01)
--- NOTE | 2025-02-14 23:57 | DVHPN2 ---
Progress Note - Dictate Date Seen: Feb 14, 2025 Medical Necessity Reason Pt with a Central, PICC or Fol: No Subjective Patient was seen and evaluated in follow up. Patient is complaining of SOB. He is on 3 LPM NC. Patient is receiving PRN med neb treatments. HGB 8.1, HCT 26.7, CO2 38. Telemetry reviewed. vital signs Vital Sign Date Time Temp Pulse Resp B/P (MAP) Pulse Ox O2 Delivery O2 Flow Rate FiO2 02/14/25 22:22 70 18 99 02/14/25 21:10 99.0 127/83 (98) 99.0 02/14/25 19:34 Nasal Cannula* 4 36 Total Intake and Output 02/13/25 02/13/25 02/14/25 15:00 23:00 07:00 Intake Total 700 ml 480 ml Output Total 1300 ml 1975 ml Balance -600 ml -1495 ml medications Current Medications Medications Dose Ordered Sig/Vincent Route Start Time Stop Time Status Last Admin Dose Admin Warfarin Sodium RX PROTOCOL PER PHARMACY PO 01/15/25 01:45 Cancel Sodium Chloride 10 ml QSHIFT@10,22 IV 01/16/25 22:00 02/14/25 21:08 10 ML Hydralazine HCl 10 mg Q6HP PRN IV 01/16/25 20:00 Lorazepam 0.5 mg Q6HP PRN IV 01/17/25 07:45 02/14/25 05:50 0.5 MG Diagnostic Test (Pha) 1 strip Q6HR 01/17/25 18:00 02/14/25 22:54 1 STRIP Insulin Human Regular FOLLOW SLIDING SCALE Q6HR SC 01/17/25 18:00 02/14/25 00:01 2 UNITS Dextrose 50 ml UD IV 01/17/25 18:00 Metoprolol Tartrate 2.5 mg Q6HPRN PRN IV 01/19/25 13:00 Potassium Chloride 100 ml @ 50 mls/hr Q2H IV 01/26/25 17:30 01/26/25 21:29 UNV Albuterol 2.5 mg Q4HR NEB 02/03/25 06:00 02/14/25 22:12 2.5 MG Ipratropium [place] 0.5 mg Q4HR NEB 02/03/25 06:00 02/14/25 22:12 0.5 MG Albuterol 2.5 mg Q2HPRN PRN NEB 02/04/25 12:00 Ipratropium [place] 0.5 mg Q2HPRN PRN NEB 02/04/25 12:00 Ipratropium [place] 0.5 mg Q4HR NEB 02/05/25 14:00 Cancel Megestrol Acetate 400 mg DAILY PO 02/05/25 12:00 02/14/25 08:34 400 MG Enoxaparin Sodium 65 mg Q12HR SC 02/05/25 22:00 02/14/25 21:08 65 MG Furosemide 20 mg BIDD IV 02/05/25 18:00 02/14/25 16:45 20 MG Empaglifozin 10 mg DAILY PO 02/06/25 10:00 02/14/25 08:35 10 MG Acetaminophen/ Hydrocodone Bitart 1 tab Q4HP PRN PO 02/08/25 11:00 02/14/25 21:43 1 TAB Amiodarone HCl 200 mg Q12HR PO 02/09/25 22:00 02/14/25 21:08 200 MG Fluconazole 400 mg DAILY PO 02/11/25 10:00 02/14/25 08:34 400 MG Enteral Nutritional Formula 240 ml TIDWM PO 02/12/25 12:00 02/14/25 18:22 240 ML Ondansetron HCl 4 mg Q4HPRN PRN IV 02/14/25 22:45 02/14/25 23:01 4 MG objective GENERAL: Alert and oriented x 3. No acute distress. EYES: PERRL, EOMI. Anicteric. HENT: Moist mucous membranes. LUNGS: Diminished breath sounds. CARDIOVASCULAR: Regular rate and rhythm. ABDOMEN: Soft, non-tender and non-distended. EXTREMITIES: No edema. NEUROLOGIC: No focal neurological deficits. SKIN: Warm, dry. laboratory and microbiology Laboratory Tests 02/14/25 05:40 Test 02/14/25 05:40 Range/Units Serum Glucose 119 H 74-106 mg/dL Problem List Acute decompensated HFpEF, NYHA class III. Paroxysmal Atrial fibrillation, Stage 3a (on Xarelto). Hypertension. Pneumoperitoneum. Sepsis. History of abdominal aortic aneurysm. Pulmonary hypertension. Type 2 diabetes mellitus. Morbid obesity. Assessment/Plan Continued all current supportive medical care. [place] for pain management. DVT and GI prophylactics. Diuretics with Lasix. IV Hydralazine for SBP >170. Metoprolol. Nitro SL. Additional plan as per the hospital course. Dietary Evaluation Review Comments: 1. Advance TPN to meet at least 75% estimated needs 2. Contineu current POC Expected Outcomes/Goals: To meet >75% estimated needs Fu 2-3 days Plan discussed with: Patient KRISTIN JOSEPH MD Feb 14, 2025 23:57
[2025-02-15] VITALS (22 sets, daily range): BP systolic 104–143; BP diastolic 66–77; PULSE 70–89; RESP 16–20; TEMP 96.9–98.9; O2SAT 90–100
--- NOTE | 2025-02-15 11:01 | DVHPN2 ---
Reviewed: Care Plan, H&P, Labs, Medications, Previous Orders, Radiology Changes from previous H/P or p: No Changes General: Per HPI Objective Vitals Vital Signs Date Time Temp Pulse Resp B/P (MAP) Pulse Ox O2 Delivery O2 Flow Rate FiO2 02/15/25 10:01 77 18 100 02/15/25 09:53 Nasal Cannula 4.0 02/15/25 09:53 36 02/15/25 08:41 98.0 116/67 (83) 98.0 Intake/Output Intake and Output 02/15/25 07:00 Intake Total 2850 ml Output Total 3300 ml Balance -450 ml Intake Oral 2850 ml Output Urine Total 3300 ml # Bowel Movements 2 General Appearance: Alert, Oriented X3, No acute distress HEENT: Atraumatic, PERRLA, EOMI, Mucous membr. moist/pink Neck: Supple Lungs: Clear to auscultation, Normal air movement Cardiovascular: Regular rate, Normal S1, Normal S2, No murmurs, Gallops, Rubs Abdomen: Normal bowel sounds, Soft, No tenderness Neuro: Cranial nerves 3-12 NL Psych/Mental Status: Mental status NL Medications Current Medications Medications Dose Ordered Sig/Vincent Route Start Time Stop Time Status Last Admin Dose Admin Warfarin Sodium RX PROTOCOL PER PHARMACY PO 01/15/25 01:45 Cancel Sodium Chloride 10 ml QSHIFT@10,22 IV 01/16/25 22:00 02/14/25 21:08 10 ML Hydralazine HCl 10 mg Q6HP PRN IV 01/16/25 20:00 Lorazepam 0.5 mg Q6HP PRN IV 01/17/25 07:45 02/15/25 09:35 0.5 MG Diagnostic Test (Pha) 1 strip Q6HR 01/17/25 18:00 02/15/25 05:05 1 STRIP Insulin Human Regular FOLLOW SLIDING SCALE Q6HR SC 01/17/25 18:00 02/14/25 00:01 2 UNITS Dextrose 50 ml UD IV 01/17/25 18:00 Metoprolol Tartrate 2.5 mg Q6HPRN PRN IV 01/19/25 13:00 Potassium Chloride 100 ml @ 50 mls/hr Q2H IV 01/26/25 17:30 01/26/25 21:29 UNV Albuterol 2.5 mg Q4HR NEB 02/03/25 06:00 02/15/25 09:53 2.5 MG Ipratropium [place] 0.5 mg Q4HR NEB 02/03/25 06:00 02/15/25 09:53 0.5 MG Albuterol 2.5 mg Q2HPRN PRN NEB 02/04/25 12:00 Ipratropium [place] 0.5 mg Q2HPRN PRN NEB 02/04/25 12:00 Ipratropium [place] 0.5 mg Q4HR NEB 02/05/25 14:00 Cancel Megestrol [place]et[place] 400 mg DAILY PO 02/05/25 12:00 02/15/25 08:19 400 MG Enoxaparin Sodium 65 mg Q12HR SC 02/05/25 22:00 02/15/25 08:20 65 MG Furosemide 20 mg BIDD IV 02/05/25 18:00 02/15/25 05:04 20 MG Empaglifozin 10 mg DAILY PO 02/06/25 10:00 02/15/25 08:19 10 MG Acetaminophen/ Hydrocodone Bitart 1 tab Q4HP PRN PO 02/08/25 11:00 02/15/25 09:35 1 TAB Amiodarone HCl 200 mg Q12HR PO 02/09/25 22:00 02/15/25 08:19 200 MG Fluconazole 400 mg DAILY PO 02/11/25 10:00 02/15/25 08:18 400 MG Enteral Nutritional Formula 240 ml TIDWM PO 02/12/25 12:00 02/15/25 08:20 240 ML Ondansetron HCl 4 mg Q4HPRN PRN IV 02/14/25 22:45 02/15/25 08:19 4 MG Laboratory Results Laboratory Tests 02/14/25 05:40 Urinalysis Test 01/15/25 01:59 Urine Color Light-yellow (Yellow) Urine Clarity Clear (Clear) Urine pH 6.0 (5.0-9.0) Urine Specific [place] 1.018 (1.001-1.035) Urine Protein Negative (Negative) Urine Ketones Negative (Negative) Urine Blood Negative /uL (Negative) Urine Nitrite Negative (Negative) Urine Bilirubin Negative (Negative) Urine Urobilinogen Normal mg/dL (Negative) Urine Leukocyte Esterase Negative /uL (Negative) Urine RBC <1 /hpf (0 - 3) Urine Microscopic WBC /HPF (0-3) Urine Squamous Epithelial Cells None seen /hpf (<5) Urine Bacteria None seen /hpf (None Seen) Urine Glucose 4+ mg/dL (Normal) H Microbiology Microbiology Date/Time Source Procedure Growth Status 02/09/25 11:50 Nose MRSA Screen - Final Complete 01/25/25 09:35 Aspirate Gram Stain - Final Complete 01/25/25 09:35 Body Fluid Culture - Final Escherichia coli Presumptive Zenaida albicans Complete 01/15/25 00:28 Blood Blood Culture - Final NO GROWTH AFTER 5 DAYS OF INCUBATION. Complete Labs and/or images reviewed: Labs reviewed by me, Image(s) reviewed by me Assessment/Plan Assessment/Plan Acute hypoxic respiratory failure: Oxygen by nasal cannula, chest x-ray, consult for Chronic hypercarbic respiratory failure Dependence on home oxygen Intractable abdominal pain resolved Perforated viscus and pneumoperitoneum, with history of gastric bypass, conservative management consult by Dr. Bird appreciated Left upper quadrant abscess status post drainage discontinued antibiotics Lactic acidosis, resolved Zenaida in the abdominal abscess aspirate: Fluconazole converted to p.o. Sepsis due to above Acute respiratory distress Diabetes with hyperglycemia AFib on Coumadin Morbid obesity Obstructive sleep apnea: CPAP Acute hypokalemia: Replace potassium Lipase elevated, mild Nutrition: Glucerna Continue Physical therapy Plan discussed with: Patient Date of Service: Feb 15, 2025 Billing Provider: PROMISE CASTANO MD Common Visit Codes: [id number] INP/OBS CARE(HIGH) PROMISE CASTANO MD Feb 15, 2025 11:01
--- NOTE | 2025-02-15 17:37 | DVHPN2 ---
Progress Note - Dictate Date Seen: Feb 15, 2025 Medical Necessity Reason Pt with a Central, PICC or Fol: No Subjective Patient was seen and evaluated in follow up. Patient is complaining of worsening SOB, patient's O2 was increased to 4 LPM NC. Patient will continue receiving PRN med neb treatments. BS in the 120's. Telemetry reviewed. vital signs Vital Sign Date Time Temp Pulse Resp B/P (MAP) Pulse Ox O2 Delivery O2 Flow Rate FiO2 02/15/25 14:03 70 18 99 02/15/25 13:55 Nasal Cannula* 4 36 02/15/25 12:43 98.4 104/66 (79) 98.4 Total Intake and Output 02/14/25 02/14/25 02/15/25 15:00 23:00 07:00 Intake Total 480 ml 1520 ml 850 ml Output Total 1800 ml 1500 ml Balance 480 ml -280 ml -650 ml medications Current Medications Medications Dose Ordered Sig/Vincent Route Start Time Stop Time Status Last Admin Dose Admin Warfarin Sodium RX PROTOCOL PER PHARMACY PO 01/15/25 01:45 Cancel Sodium Chloride 10 ml QSHIFT@10,22 IV 01/16/25 22:00 02/15/25 11:40 10 ML Hydralazine HCl 10 mg Q6HP PRN IV 01/16/25 20:00 Lorazepam 0.5 mg Q6HP PRN IV 01/17/25 07:45 02/15/25 09:35 0.5 MG Diagnostic Test (Pha) 1 strip Q6HR 01/17/25 18:00 02/15/25 11:41 1 STRIP Insulin Human Regular FOLLOW SLIDING SCALE Q6HR SC 01/17/25 18:00 02/15/25 11:41 2 UNITS Dextrose 50 ml UD IV 01/17/25 18:00 Metoprolol Tartrate 2.5 mg Q6HPRN PRN IV 01/19/25 13:00 Potassium Chloride 100 ml @ 50 mls/hr Q2H IV 01/26/25 17:30 01/26/25 21:29 UNV Albuterol 2.5 mg Q4HR NEB 02/03/25 06:00 02/15/25 13:55 2.5 MG Ipratropium [place] 0.5 mg Q4HR NEB 02/03/25 06:00 02/15/25 13:55 0.5 MG Albuterol 2.5 mg Q2HPRN PRN NEB 02/04/25 12:00 Ipratropium [place] 0.5 mg Q2HPRN PRN NEB 02/04/25 12:00 Ipratropium [place] 0.5 mg Q4HR NEB 02/05/25 14:00 Cancel Megestrol Acetate 400 mg DAILY PO 02/05/25 12:00 02/15/25 08:19 400 MG Enoxaparin Sodium 65 mg Q12HR SC 02/05/25 22:00 02/15/25 08:20 65 MG Furosemide 20 mg BIDD IV 02/05/25 18:00 02/15/25 05:04 20 MG Empaglifozin 10 mg DAILY PO 02/06/25 10:00 02/15/25 08:19 10 MG Acetaminophen/ Hydrocodone Bitart 1 tab Q4HP PRN PO 02/08/25 11:00 02/15/25 15:13 1 TAB Amiodarone HCl 200 mg Q12HR PO 02/09/25 22:00 02/15/25 08:19 200 MG Fluconazole 400 mg DAILY PO 02/11/25 10:00 02/15/25 08:18 400 MG Enteral Nutritional Formula 240 ml TIDWM PO 02/12/25 12:00 02/15/25 15:13 240 ML Ondansetron HCl 4 mg Q4HPRN PRN IV 02/14/25 22:45 02/15/25 15:31 4 MG objective GENERAL: Alert and oriented x 3. No acute distress. EYES: PERRL, EOMI. Anicteric. HENT: Moist mucous membranes. LUNGS: Diminished breath sounds. CARDIOVASCULAR: Regular rate and rhythm. ABDOMEN: Soft, non-tender and non-distended. EXTREMITIES: No edema. NEUROLOGIC: No focal neurological deficits. SKIN: Warm, dry. laboratory and microbiology Laboratory Tests 02/14/25 05:40 Test 02/14/25 05:40 Range/Units Serum Glucose 119 H 74-106 mg/dL Problem List Acute decompensated HFpEF, NYHA class III. Paroxysmal Atrial fibrillation, Stage 3a (on Xarelto). Hypertension. Pneumoperitoneum. Sepsis. History of abdominal aortic aneurysm. Pulmonary hypertension. Type 2 diabetes mellitus. Morbid obesity. Assessment/Plan Continued all current supportive medical care. [place] for pain management. DVT and GI prophylactics. Diuretics with Lasix. IV Hydralazine for SBP >170. Metoprolol. Nitro SL. Additional plan as per the hospital course. Dietary Evaluation Review Comments: 1. Advance TPN to meet at least 75% estimated needs 2. [place]ine[place] current POC Expected Outcomes/Goals: To meet >75% estimated needs Fu 2-3 days Plan discussed with: Patient KRISTIN JOSEPH MD Feb 15, 2025 15:50
--- NOTE | 2025-02-15 18:07 | DVHPN2 ---
Progress Note - Dictate Date Seen: Feb 15, 2025 Medical Necessity Reason Pt with a Central, PICC or Fol: No vital signs Vital Sign Date Time Temp Pulse Resp B/P (MAP) Pulse Ox O2 Delivery O2 Flow Rate FiO2 02/15/25 17:45 137/73 02/15/25 16:34 97.8 76 16 96 97.8 02/15/25 13:55 Nasal Cannula* 4 36 Total Intake and Output 02/14/25 02/14/25 02/15/25 15:00 23:00 07:00 Intake Total 480 ml 1520 ml 850 ml Output Total 1800 ml 1500 ml Balance 480 ml -280 ml -650 ml medications Current Medications Medications Dose Ordered Sig/Vincent Route Start Time Stop Time Status Last Admin Dose Admin Warfarin Sodium RX PROTOCOL PER PHARMACY PO 01/15/25 01:45 Cancel Sodium Chloride 10 ml QSHIFT@10,22 IV 01/16/25 22:00 02/15/25 11:40 10 ML Hydralazine HCl 10 mg Q6HP PRN IV 01/16/25 20:00 Lorazepam 0.5 mg Q6HP PRN IV 01/17/25 07:45 02/15/25 16:55 0.5 MG Diagnostic Test (Pha) 1 strip Q6HR 01/17/25 18:00 02/15/25 11:41 1 STRIP Insulin Human Regular FOLLOW SLIDING SCALE Q6HR SC 01/17/25 18:00 02/15/25 11:41 2 UNITS Dextrose 50 ml UD IV 01/17/25 18:00 Metoprolol Tartrate 2.5 mg Q6HPRN PRN IV 01/19/25 13:00 Potassium Chloride 100 ml @ 50 mls/hr Q2H IV 01/26/25 17:30 01/26/25 21:29 UNV Albuterol 2.5 mg Q4HR NEB 02/03/25 06:00 02/15/25 13:55 2.5 MG Ipratropium [place] 0.5 mg Q4HR NEB 02/03/25 06:00 02/15/25 13:55 0.5 MG Albuterol 2.5 mg Q2HPRN PRN NEB 02/04/25 12:00 Ipratropium [place] 0.5 mg Q2HPRN PRN NEB 02/04/25 12:00 Ipratropium [place] 0.5 mg Q4HR NEB 02/05/25 14:00 Cancel Megestrol Acetate 400 mg DAILY PO 02/05/25 12:00 02/15/25 08:19 400 MG Enoxaparin Sodium 65 mg Q12HR SC 02/05/25 22:00 02/15/25 08:20 65 MG Furosemide 20 mg BIDD IV 02/05/25 18:00 02/15/25 17:45 20 MG Empaglifozin 10 mg DAILY PO 02/06/25 10:00 02/15/25 08:19 10 MG Acetaminophen/ Hydrocodone Bitart 1 tab Q4HP PRN PO 02/08/25 11:00 02/15/25 15:13 1 TAB Amiodarone HCl 200 mg Q12HR PO 02/09/25 22:00 02/15/25 08:19 200 MG Fluconazole 400 mg DAILY PO 02/11/25 10:00 02/15/25 08:18 400 MG Enteral Nutritional Formula 240 ml TIDWM PO 02/12/25 12:00 02/15/25 15:13 240 ML Ondansetron HCl 4 mg Q4HPRN PRN IV 02/14/25 22:45 02/15/25 15:31 4 MG laboratory and microbiology Laboratory Tests 02/14/25 05:40 Test 02/14/25 05:40 Range/Units Serum Glucose 119 H 74-106 mg/dL Assessment/Plan Impression Acute hypoxemic respiratory failure Morbid obesity COPD- stable Pneumonia SBO Patient seen and examined Events Low oxygen requirements On 3 liters nasal cannula No distress Labs and imaging reviewed Management Supplemental oxygen Titrate to maintain sats 90% or above Incentive spirometry Prn bipap to use during sleep Continue antibiotics F/u cultures Bronchodilators Monitor renal function Monitor electrolytes Supplement as needed Pain control Avoid oversedation F/u general surgery Awaiting placement DVT prophylaxis Dietary Evaluation Review Comments: 1. Advance TPN to meet at least 75% estimated needs 2. Contineu current POC Expected Outcomes/Goals: To meet >75% estimated needs Fu 2-3 days Plan discussed with: Patient MIK COLLAZO MD Feb 15, 2025 18:07
[2025-02-16] VITALS (16 sets, daily range): BP systolic 126–150; BP diastolic 62–73; PULSE 72–95; RESP 16–96; TEMP 96.3–98.2; O2SAT 93–99
--- NOTE | 2025-02-16 10:36 | DVHPN2 ---
Reviewed: Care Plan, H&P, Labs, Medications, Previous Orders, Radiology Changes from previous H/P or p: No Changes General: Per HPI Objective Vitals Vital Signs Date Time Temp Pulse Resp B/P (MAP) Pulse Ox O2 Delivery O2 Flow Rate FiO2 02/16/25 10:34 74 17 98 02/16/25 10:28 Nasal Cannula 4.0 02/16/25 10:28 36 02/16/25 08:44 98.1 126/62 (83) 98.1 Intake/Output Intake and Output 02/16/25 07:00 Intake Total 2500 ml Output Total 3400 ml Balance -900 ml Intake Oral 2500 ml Output Urine Total 3400 ml # Bowel Movements 3 General Appearance: Alert, Oriented X3, No acute distress HEENT: Atraumatic, PERRLA, EOMI, Mucous membr. moist/pink Neck: Supple Lungs: Clear to auscultation, Normal air movement Cardiovascular: Regular rate, Normal S1, Normal S2, No murmurs, Gallops, Rubs Abdomen: Normal bowel sounds, Soft, No tenderness Neuro: Cranial nerves 3-12 NL Psych/Mental Status: Mental status NL Medications Current Medications Medications Dose Ordered Sig/Vincent Route Start Time Stop Time Status Last Admin Dose Admin Warfarin Sodium RX PROTOCOL PER PHARMACY PO 01/15/25 01:45 Cancel Lorazepam 0.5 mg Q6HP PRN IV 01/17/25 07:45 02/16/25 05:18 0.5 MG Diagnostic Test (Pha) 1 strip Q6HR 01/17/25 18:00 02/16/25 05:27 1 STRIP Insulin Human Regular FOLLOW SLIDING SCALE Q6HR SC 01/17/25 18:00 02/15/25 11:41 2 UNITS Dextrose 50 ml UD IV 01/17/25 18:00 Metoprolol Tartrate 2.5 mg Q6HPRN PRN IV 01/19/25 13:00 Potassium Chloride 100 ml @ 50 mls/hr Q2H IV 01/26/25 17:30 01/26/25 21:29 UNV Albuterol 2.5 mg Q4HR NEB 02/03/25 06:00 02/16/25 10:28 2.5 MG Ipratropium [place] 0.5 mg Q4HR NEB 02/03/25 06:00 02/16/25 10:28 0.5 MG Albuterol 2.5 mg Q2HPRN PRN NEB 02/04/25 12:00 Ipratropium [place] 0.5 mg Q2HPRN PRN NEB 02/04/25 12:00 Ipratropium [place] 0.5 mg Q4HR NEB 02/05/25 14:00 Cancel Megestrol Acetate 400 mg DAILY PO 02/05/25 12:00 02/16/25 09:29 400 MG Enoxaparin Sodium 65 mg Q12HR SC 02/05/25 22:00 02/16/25 09:29 65 MG Furosemide 20 mg BIDD IV 02/05/25 18:00 02/16/25 05:27 20 MG Empaglifozin 10 mg DAILY PO 02/06/25 10:00 02/16/25 09:30 10 MG Acetaminophen/ Hydrocodone Bitart 1 tab Q4HP PRN PO 02/08/25 11:00 02/16/25 07:30 1 TAB Amiodarone HCl 200 mg Q12HR PO 02/09/25 22:00 02/16/25 09:30 200 MG Fluconazole 400 mg DAILY PO 02/11/25 10:00 02/16/25 09:30 400 MG Enteral Nutritional Formula 240 ml TIDWM PO 02/12/25 12:00 02/16/25 08:00 240 ML Ondansetron HCl 4 mg Q4HPRN PRN IV 02/14/25 22:45 02/16/25 06:56 4 MG Laboratory Results Laboratory Tests 02/14/25 05:40 Urinalysis Test 01/15/25 01:59 Urine Color Light-yellow (Yellow) Urine Clarity Clear (Clear) Urine pH 6.0 (5.0-9.0) Urine Specific [place] 1.018 (1.001-1.035) Urine Protein Negative (Negative) Urine Ketones Negative (Negative) Urine Blood Negative /uL (Negative) Urine Nitrite Negative (Negative) Urine Bilirubin Negative (Negative) Urine Urobilinogen Normal mg/dL (Negative) Urine Leukocyte Esterase Negative /uL (Negative) Urine RBC <1 /hpf (0 - 3) Urine Microscopic WBC /HPF (0-3) Urine Squamous Epithelial Cells None seen /hpf (<5) Urine Bacteria None seen /hpf (None Seen) Urine Glucose 4+ mg/dL (Normal) H Microbiology Microbiology Date/Time Source Procedure Growth Status 02/09/25 11:50 Nose MRSA Screen - Final Complete 01/25/25 09:35 Aspirate Gram Stain - Final Complete 01/25/25 09:35 Body Fluid Culture - Final Escherichia coli Presumptive Zenaida albicans Complete 01/15/25 00:28 Blood Blood Culture - Final NO GROWTH AFTER 5 DAYS OF INCUBATION. Complete Assessment/Plan Assessment/Plan Acute hypoxic respiratory failure: Oxygen by nasal cannula, chest x-ray, consult for Chronic hypercarbic respiratory failure Dependence on home oxygen Intractable abdominal pain resolved Perforated viscus and pneumoperitoneum, with history of gastric bypass, conservative management consult by Dr. Bird appreciated Left upper quadrant abscess status post drainage discontinued antibiotics Lactic acidosis, resolved Zenaida in the abdominal abscess aspirate: Fluconazole converted to p.o. Sepsis due to above Acute respiratory distress Diabetes with hyperglycemia AFib on Coumadin Morbid obesity Obstructive sleep apnea: CPAP Acute hypokalemia: Replace potassium Lipase elevated, mild Nutrition: Glucerna Continue Physical therapy Plan discussed with: Patient Date of Service: Feb 16, 2025 Billing Provider: PROMISE CASTANO MD Common Visit Codes: [id number] INP/OBS CARE(HIGH) PROMISE CASTANO MD Feb 16, 2025 10:36
--- NOTE | 2025-02-16 14:30 | DVHPN2 ---
Progress Note - Dictate Date Seen: Feb 16, 2025 Medical Necessity Reason Pt with a Central, PICC or Fol: No vital signs Vital Sign Date Time Temp Pulse Resp B/P (MAP) Pulse Ox O2 Delivery O2 Flow Rate FiO2 02/16/25 13:20 84 19 94 02/16/25 13:20 Nasal Cannula 4.0 02/16/25 13:20 36 02/16/25 12:35 96.3 127/64 (85) 96.3 Total Intake and Output 02/15/25 02/15/25 02/16/25 15:00 23:00 07:00 Intake Total 1600 ml 900 ml Output Total 2000 ml 1400 ml Balance -400 ml -500 ml medications Current Medications Medications Dose Ordered Sig/Vincent Route Start Time Stop Time Status Last Admin Dose Admin Warfarin Sodium RX PROTOCOL PER PHARMACY PO 01/15/25 01:45 Cancel Lorazepam 0.5 mg Q6HP PRN IV 01/17/25 07:45 02/16/25 11:42 0.5 MG Diagnostic Test (Pha) 1 strip Q6HR 01/17/25 18:00 02/16/25 11:47 1 STRIP Insulin Human Regular FOLLOW SLIDING SCALE Q6HR SC 01/17/25 18:00 02/15/25 11:41 2 UNITS Dextrose 50 ml UD IV 01/17/25 18:00 Metoprolol Tartrate 2.5 mg Q6HPRN PRN IV 01/19/25 13:00 Potassium Chloride 100 ml @ 50 mls/hr Q2H IV 01/26/25 17:30 01/26/25 21:29 UNV Albuterol 2.5 mg Q4HR NEB 02/03/25 06:00 02/16/25 13:20 2.5 MG Ipratropium [place] 0.5 mg Q4HR NEB 02/03/25 06:00 02/16/25 13:20 0.5 MG Albuterol 2.5 mg Q2HPRN PRN NEB 02/04/25 12:00 Ipratropium [place] 0.5 mg Q2HPRN PRN NEB 02/04/25 12:00 Ipratropium [place] 0.5 mg Q4HR NEB 02/05/25 14:00 Cancel Megestrol Acetate 400 mg DAILY PO 02/05/25 12:00 02/16/25 09:29 400 MG Enoxaparin Sodium 65 mg Q12HR SC 02/05/25 22:00 02/16/25 09:29 65 MG Furosemide 20 mg BIDD IV 02/05/25 18:00 02/16/25 05:27 20 MG Empaglifozin 10 mg DAILY PO 02/06/25 10:00 02/16/25 09:30 10 MG Acetaminophen/ Hydrocodone Bitart 1 tab Q4HP PRN PO 02/08/25 11:00 02/16/25 11:42 1 TAB Amiodarone HCl 200 mg Q12HR PO 02/09/25 22:00 02/16/25 09:30 200 MG Fluconazole 400 mg DAILY PO 02/11/25 10:00 02/16/25 09:30 400 MG Enteral Nutritional Formula 240 ml TIDWM PO 02/12/25 12:00 02/16/25 11:47 240 ML Ondansetron HCl 4 mg Q4HPRN PRN IV 02/14/25 22:45 02/16/25 11:42 4 MG laboratory and microbiology Laboratory Tests 02/14/25 05:40 Test 02/14/25 05:40 Range/Units Serum Glucose 119 H 74-106 mg/dL Assessment/Plan Impression Acute hypoxemic respiratory failure Morbid obesity COPD- stable Pneumonia SBO Patient seen and examined Events Low oxygen requirements On 3 liters nasal cannula No acute events Labs and imaging reviewed Management Supplemental oxygen Titrate to maintain sats 90% or above Incentive spirometry Prn bipap to use during sleep Continue antibiotics F/u cultures Bronchodilators Monitor renal function Monitor electrolytes Supplement as needed Pain control Avoid oversedation F/u general surgery Awaiting placement DVT prophylaxis Dietary Evaluation Review Comments: 1. Advance TPN to meet at least 75% estimated needs 2. [place] current POC Expected Outcomes/Goals: To meet >75% estimated needs Fu 2-3 days Plan discussed with: Patient MIK COLLAZO MD Feb 16, 2025 14:30
--- NOTE | 2025-02-16 23:04 | DVHPN2 ---
Progress Note - Dictate Date Seen: Feb 16, 2025 Medical Necessity Reason Pt with a Central, PICC or Fol: No Subjective Patient was seen and evaluated in follow up. Patient is on 4 LPM NC. Patient denies any pain or discomfort. BS in the 120s. Telemetry reviewed. vital signs Vital Sign Date Time Temp Pulse Resp B/P (MAP) Pulse Ox O2 Delivery O2 Flow Rate FiO2 02/16/25 13:20 84 19 94 02/16/25 13:20 Nasal Cannula 4.0 02/16/25 13:20 36 02/16/25 12:35 96.3 127/64 (85) 96.3 Total Intake and Output 02/15/25 02/15/25 02/16/25 15:00 23:00 07:00 Intake Total 1600 ml 900 ml Output Total 2000 ml 1400 ml Balance -400 ml -500 ml medications Current Medications Medications Dose Ordered Sig/Vincent Route Start Time Stop Time Status Last Admin Dose Admin Warfarin Sodium RX PROTOCOL PER PHARMACY PO 01/15/25 01:45 Cancel Lorazepam 0.5 mg Q6HP PRN IV 01/17/25 07:45 02/16/25 11:42 0.5 MG Diagnostic Test (Pha) 1 strip Q6HR 01/17/25 18:00 02/16/25 11:47 1 STRIP Insulin Human Regular FOLLOW SLIDING SCALE Q6HR SC 01/17/25 18:00 02/15/25 11:41 2 UNITS Dextrose 50 ml UD IV 01/17/25 18:00 Metoprolol Tartrate 2.5 mg Q6HPRN PRN IV 01/19/25 13:00 Potassium Chloride 100 ml @ 50 mls/hr Q2H IV 01/26/25 17:30 01/26/25 21:29 UNV Albuterol 2.5 mg Q4HR NEB 02/03/25 06:00 02/16/25 13:20 2.5 MG Ipratropium [place] 0.5 mg Q4HR NEB 02/03/25 06:00 02/16/25 13:20 0.5 MG Albuterol 2.5 mg Q2HPRN PRN NEB 02/04/25 12:00 Ipratropium [place] 0.5 mg Q2HPRN PRN NEB 02/04/25 12:00 Ipratropium [place] 0.5 mg Q4HR NEB 02/05/25 14:00 Cancel Megestrol Acetate 400 mg DAILY PO 02/05/25 12:00 02/16/25 09:29 400 MG Enoxaparin Sodium 65 mg Q12HR SC 02/05/25 22:00 02/16/25 09:29 65 MG Furosemide 20 mg BIDD IV 02/05/25 18:00 02/16/25 05:27 20 MG Empaglifozin 10 mg DAILY PO 02/06/25 10:00 02/16/25 09:30 10 MG Acetaminophen/ Hydrocodone Bitart 1 tab Q4HP PRN PO 02/08/25 11:00 02/16/25 11:42 1 TAB Amiodarone HCl 200 mg Q12HR PO 02/09/25 22:00 02/16/25 09:30 200 MG Fluconazole 400 mg DAILY PO 02/11/25 10:00 02/16/25 09:30 400 MG Enteral Nutritional Formula 240 ml TIDWM PO 02/12/25 12:00 02/16/25 11:47 240 ML Ondansetron HCl 4 mg Q4HPRN PRN IV 02/14/25 22:45 02/16/25 11:42 4 MG objective GENERAL: Alert and oriented x 3. No acute distress. EYES: PERRL, EOMI. Anicteric. HENT: Moist mucous membranes. LUNGS: Diminished breath sounds. CARDIOVASCULAR: Regular rate and rhythm. ABDOMEN: Soft, non-tender and non-distended. EXTREMITIES: No edema. NEUROLOGIC: No focal neurological deficits. SKIN: Warm, dry. laboratory and microbiology Laboratory Tests 02/14/25 05:40 Test 02/14/25 05:40 Range/Units Serum Glucose 119 H 74-106 mg/dL Problem List Acute decompensated HFpEF, NYHA class III. Paroxysmal Atrial fibrillation, Stage 3a (on Xarelto). Hypertension. Pneumoperitoneum. Sepsis. History of abdominal aortic aneurysm. Pulmonary hypertension. Type 2 diabetes mellitus. Morbid obesity. Assessment/Plan Continued all current supportive medical care. [place] for pain management. Amiodarone. DVT and GI prophylactics. Diuretics with Lasix. Metoprolol. Additional plan as per the hospital course. Dietary Evaluation Review Comments: 1. Advance TPN to meet at least 75% estimated needs 2. Contineu current POC Expected Outcomes/Goals: To meet >75% estimated needs Fu 2-3 days Plan discussed with: Patient KRISTIN JOSEPH MD Feb 16, 2025 14:29
[2025-02-17] VITALS (18 sets, daily range): BP systolic 121–143; BP diastolic 70–81; PULSE 65–89; RESP 16–22; TEMP 97.6–98; O2SAT 93–100
[2025-02-17] MEDS: IPRATROPIUM BROM 0.5 MG/2.5ML INH SOL ONE (06:55)
[2025-02-17] MEDS: ALBUTEROL SULF 2.5 MG/0.5ML(0.5%) NEB SOLN ONE (06:55)
[2025-02-17 08:50] LABS: Basophils # (auto) 0.1 10 ^3/uL (0-0.2); Eosinophils # (auto) 0.3 10 ^3/uL (0-0.8); Hematocrit 29.3 % (41.0-53.0); Lymphocytes # (auto) 1.3 10 ^3/uL (0.4-5.4); Mean Corpuscular Hemoglobin 22.5 pg (28.0-32.0)
[2025-02-17 08:53] LABS: Eosinophils % (auto) 2.8 % (0.0-7.0); Hemoglobin 9.1 g/dL (13.5-17.5); Mean Corpuscular Hgb Conc. 30.9 g/dL (32.0-36.0); Mean Corpuscular Volume 72.9 fL (80.0-100.0); Monocytes % (auto) 10.9 % (0.0-12.0); Neutrophils # (auto) 6.8 10 ^3/uL (1.6-8.6); Neutrophils % (auto) 71.3 % (37.0-80.0); Nucleated Red Blood Cells % 0.3 %; Platelet Count (auto) 475 10^3/uL (140-450); Red Blood Cells 4.02 10^6/uL (4.5-5.90); Red Cell Distribution Width 20.3 % (11.8-14.3); White Blood Cell 9.6 10^3/uL (4.4-10.8)
[2025-02-17 09:06] LABS: Alanine Aminotransferase 17 U/L (7-40); Albumin 3.5 g/dL (3.2-4.8); Alkaline Phosphatase 71 U/L (46-116); Anion Gap 8 (5-15); Aspartate Aminotransferase 16 U/L (<34); BUN/Creatinine Ratio 19.5 (10.0-20.0); Blood Urea Nitrogen 15 mg/dL (9-23); Calcium 9.3 mg/dL (8.7-10.4); Sodium 139 mmol/L (136-145); Total Protein 7.3 g/dL (5.7-8.2)
[2025-02-17 09:17] LABS: Bilirubin, Total < 0.2 mg/dL (0.2-1.0); Carbon Dioxide 34 mmol/L (20-31); Chloride 97 mmol/L (98-107); Glucose 161 mg/dL (74-106); Potassium 3.3 mmol/L (3.5-5.1)
--- NOTE | 2025-02-17 09:40 | DVHPN2 ---
Reviewed: Care Plan, H&P, Labs, Medications, Previous Orders, Radiology Changes from previous H/P or p: No Changes General: Per HPI Objective Vitals Vital Signs Date Time Temp Pulse Resp B/P (MAP) Pulse Ox O2 Delivery O2 Flow Rate FiO2 02/17/25 08:00 86 96 Nasal Cannula* 4 36 02/17/25 07:03 20 02/17/25 05:29 143/73 02/17/25 05:00 98.0 98.0 Intake/Output Intake and Output 02/17/25 07:00 Intake Total 2237 ml Output Total 3025 ml Balance -788 ml Intake Oral 2237 ml Output Urine Total 3025 ml # Bowel Movements 4 General Appearance: Alert, Oriented X3, No acute distress HEENT: Atraumatic, PERRLA, EOMI, Mucous membr. moist/pink Neck: Supple Lungs: Clear to auscultation, Normal air movement Cardiovascular: Regular rate, Normal S1, Normal S2, No murmurs, Gallops, Rubs Abdomen: Normal bowel sounds, Soft, No tenderness Neuro: Cranial nerves 3-12 NL Psych/Mental Status: Mental status NL Medications Current Medications Medications Dose Ordered Sig/Vincent Route Start Time Stop Time Status Last Admin Dose Admin Warfarin Sodium RX PROTOCOL PER PHARMACY PO 01/15/25 01:45 Cancel Lorazepam 0.5 mg Q6HP PRN IV 01/17/25 07:45 02/17/25 06:48 0.5 MG Metoprolol Tartrate 2.5 mg Q6HPRN PRN IV 01/19/25 13:00 Potassium Chloride 100 ml @ 50 mls/hr Q2H IV 01/26/25 17:30 01/26/25 21:29 UNV Albuterol 2.5 mg Q4HR NEB 02/03/25 06:00 02/17/25 06:55 2.5 MG Ipratropium [place] 0.5 mg Q4HR NEB 02/03/25 06:00 02/17/25 06:55 0.5 MG Albuterol 2.5 mg Q2HPRN PRN NEB 02/04/25 12:00 Ipratropium [place] 0.5 mg Q2HPRN PRN NEB 02/04/25 12:00 Ipratropium [place] 0.5 mg Q4HR NEB 02/05/25 14:00 Cancel Megestrol Acetate 400 mg DAILY PO 02/05/25 12:00 02/16/25 09:29 400 MG Furosemide 20 mg BIDD IV 02/05/25 18:00 02/17/25 05:29 20 MG Empaglifozin 10 mg DAILY PO 02/06/25 10:00 02/16/25 09:30 10 MG Acetaminophen/ Hydrocodone Bitart 1 tab Q4HP PRN PO 02/08/25 11:00 02/17/25 08:41 1 TAB Amiodarone HCl 200 mg Q12HR PO 02/09/25 22:00 02/16/25 21:31 200 MG Fluconazole 400 mg DAILY PO 02/11/25 10:00 02/16/25 09:30 400 MG Enteral Nutritional Formula 240 ml TIDWM PO 02/12/25 12:00 02/17/25 08:33 240 ML Ondansetron HCl 4 mg Q4HPRN PRN IV 02/14/25 22:45 02/17/25 08:41 4 MG Laboratory Results Laboratory Tests 02/17/25 08:28 Chemistry Test 02/17/25 08:28 Albumin 3.5 g/dL (3.2-4.8) Calcium Level 9.3 mg/dL (8.7-10.4) Total Protein 7.3 g/dL (5.7-8.2) LFT Test 02/17/25 08:28 Alanine Aminotransferase (ALT) 17 U/L (7-40) Alkaline Phosphatase 71 U/L (46-116) Aspartate Amino Transferase (AST) 16 U/L (<34) Total Bilirubin < 0.2 mg/dL (0.2-1.0) L Urinalysis Test 01/15/25 01:59 Urine Color Light-yellow (Yellow) Urine Clarity Clear (Clear) Urine pH 6.0 (5.0-9.0) Urine Specific [place] 1.018 (1.001-1.035) Urine Protein Negative (Negative) Urine Ketones Negative (Negative) Urine Blood Negative /uL (Negative) Urine Nitrite Negative (Negative) Urine Bilirubin Negative (Negative) Urine Urobilinogen Normal mg/dL (Negative) Urine Leukocyte Esterase Negative /uL (Negative) Urine RBC <1 /hpf (0 - 3) Urine Microscopic WBC /HPF (0-3) Urine Squamous Epithelial Cells None seen /hpf (<5) Urine Bacteria None seen /hpf (None Seen) Urine Glucose 4+ mg/dL (Normal) H Microbiology Microbiology Date/Time Source Procedure Growth Status 02/09/25 11:50 Nose MRSA Screen - Final Complete 01/25/25 09:35 Aspirate Gram Stain - Final Complete 01/25/25 09:35 Body Fluid Culture - Final Escherichia coli Presumptive Zenaida albicans Complete 01/15/25 00:28 Blood Blood Culture - Final NO GROWTH AFTER 5 DAYS OF INCUBATION. Complete Labs and/or images reviewed: Labs reviewed by me, Image(s) reviewed by me Assessment/Plan Assessment/Plan Acute hypoxic respiratory failure: Oxygen by nasal cannula, chest x-ray, consult for Chronic hypercarbic respiratory failure Dependence on home oxygen Intractable abdominal pain resolved Perforated viscus and pneumoperitoneum, with history of gastric bypass, conservative management consult by Dr. Bird appreciated Left upper quadrant abscess status post drainage discontinued antibiotics Lactic acidosis, resolved Zenaida in the abdominal abscess aspirate: Fluconazole converted to p.o. Sepsis due to above Acute respiratory distress Diabetes with hyperglycemia AFib on Coumadin Morbid obesity Obstructive sleep apnea: CPAP Acute hypokalemia: Replace potassium Lipase elevated, mild Nutrition: Glucerna Continue Physical therapy Plan discussed with: Patient Date of Service: Feb 17, 2025 Billing Provider: PROMISE CASTANO MD Common Visit Codes: [id number] CARE 30-74 MIN PROMISE CASTANO MD Feb 17, 2025 09:40
[2025-02-17] MEDS: POTASSIUM CHL 20 Meq TABLET PO ONE (10:31)
--- NOTE | 2025-02-17 14:27 | DVHPN2 ---
Progress Note - Dictate Date Seen: Feb 17, 2025 Medical Necessity Reason Pt with a Central, PICC or Fol: No Subjective Patient was seen and evaluated in follow up. Patient is stable on 4 LPM NC. HGB 9.1, HCT 29.3, K 3.3, CL 97, CO2 34. Telemetry reviewed. vital signs Vital Sign Date Time Temp Pulse Resp B/P (MAP) Pulse Ox O2 Delivery O2 Flow Rate FiO2 02/17/25 09:54 86 20 95 02/17/25 09:41 Nasal Cannula* 4 36 02/17/25 09:00 98.0 140/80 (100) 98.0 Total Intake and Output 02/16/25 02/16/25 02/17/25 15:00 23:00 07:00 Intake Total 1437 ml 800 ml Output Total 2225 ml 800 ml Balance -788 ml 0 ml medications Current Medications Medications Dose Ordered Sig/Vincent Route Start Time Stop Time Status Last Admin Dose Admin Warfarin Sodium RX PROTOCOL PER PHARMACY PO 01/15/25 01:45 Cancel Lorazepam 0.5 mg Q6HP PRN IV 01/17/25 07:45 02/17/25 06:48 0.5 MG Metoprolol Tartrate 2.5 mg Q6HPRN PRN IV 01/19/25 13:00 Potassium Chloride 100 ml @ 50 mls/hr Q2H IV 01/26/25 17:30 01/26/25 21:29 UNV Albuterol 2.5 mg Q4HR NEB 02/03/25 06:00 02/17/25 09:41 2.5 MG Ipratropium [place] 0.5 mg Q4HR NEB 02/03/25 06:00 02/17/25 09:41 0.5 MG Albuterol 2.5 mg Q2HPRN PRN NEB 02/04/25 12:00 Ipratropium [place] 0.5 mg Q2HPRN PRN NEB 02/04/25 12:00 Ipratropium [place] 0.5 mg Q4HR NEB 02/05/25 14:00 Cancel Megestrol Acetate 400 mg DAILY PO 02/05/25 12:00 02/17/25 10:31 400 MG Furosemide 20 mg BIDD IV 02/05/25 18:00 02/17/25 05:29 20 MG Empaglifozin 10 mg DAILY PO 02/06/25 10:00 02/17/25 10:31 10 MG Acetaminophen/ Hydrocodone Bitart 1 tab Q4HP PRN PO 02/08/25 11:00 02/17/25 12:55 1 TAB Amiodarone HCl 200 mg Q12HR PO 02/09/25 22:00 02/17/25 10:31 200 MG Fluconazole 400 mg DAILY PO 02/11/25 10:00 02/17/25 10:30 400 MG Enteral Nutritional Formula 240 ml TIDWM PO 02/12/25 12:00 02/17/25 12:10 240 ML Ondansetron HCl 4 mg Q4HPRN PRN IV 02/14/25 22:45 02/17/25 12:54 4 MG Potassium Chloride 40 meq DAILY PO 02/17/25 18:00 objective GENERAL: Alert and oriented x 3. No acute distress. EYES: PERRL, EOMI. Anicteric. HENT: Moist mucous membranes. LUNGS: Diminished breath sounds. CARDIOVASCULAR: Regular rate and rhythm. ABDOMEN: Soft, non-tender and non-distended. EXTREMITIES: No edema. NEUROLOGIC: No focal neurological deficits. SKIN: Warm, dry. laboratory and microbiology Laboratory Tests 02/17/25 08:28 Test 02/17/25 08:28 Range/Units Serum Glucose 161 H 74-106 mg/dL Problem List Acute decompensated HFpEF, NYHA class III. Paroxysmal Atrial fibrillation, Stage 3a (on Xarelto). Hypertension. Pneumoperitoneum. Sepsis. History of abdominal aortic aneurysm. Pulmonary hypertension. Type 2 diabetes mellitus. Morbid obesity. Assessment/Plan Continued all current supportive medical care. [place] for pain management. Amiodarone. DVT and GI prophylactics. Diuretics with Lasix. Metoprolol. Additional plan as per the hospital course. Dietary Evaluation Review Comments: 1. Advance TPN to meet at least 75% estimated needs 2. Contineu current POC Expected Outcomes/Goals: To meet >75% estimated needs Fu 2-3 days Plan discussed with: Patient KRISTIN JOSEPH MD Feb 17, 2025 13:12
--- NOTE | 2025-02-17 16:39 | DVHPN2 ---
Progress Note - Dictate Date Seen: Feb 17, 2025 Medical Necessity Reason Pt with a Central, PICC or Fol: No vital signs Vital Sign Date Time Temp Pulse Resp B/P (MAP) Pulse Ox O2 Delivery O2 Flow Rate FiO2 02/17/25 13:48 79 20 94 02/17/25 13:43 Nasal Cannula 4.0 02/17/25 13:43 36 02/17/25 13:00 97.6 121/79 (93) 97.6 Total Intake and Output 02/16/25 02/16/25 02/17/25 15:00 23:00 07:00 Intake Total 1437 ml 800 ml Output Total 2225 ml 800 ml Balance -788 ml 0 ml medications Current Medications Medications Dose Ordered Sig/Vincent Route Start Time Stop Time Status Last Admin Dose Admin Warfarin Sodium RX PROTOCOL PER PHARMACY PO 01/15/25 01:45 Cancel Lorazepam 0.5 mg Q6HP PRN IV 01/17/25 07:45 02/17/25 15:03 0.5 MG Metoprolol Tartrate 2.5 mg Q6HPRN PRN IV 01/19/25 13:00 Potassium Chloride 100 ml @ 50 mls/hr Q2H IV 01/26/25 17:30 01/26/25 21:29 UNV Albuterol 2.5 mg Q4HR NEB 02/03/25 06:00 02/17/25 13:43 2.5 MG Ipratropium [place] 0.5 mg Q4HR NEB 02/03/25 06:00 02/17/25 13:43 0.5 MG Albuterol 2.5 mg Q2HPRN PRN NEB 02/04/25 12:00 Ipratropium [place] 0.5 mg Q2HPRN PRN NEB 02/04/25 12:00 Ipratropium [place] 0.5 mg Q4HR NEB 02/05/25 14:00 Cancel Megestrol Acetate 400 mg DAILY PO 02/05/25 12:00 02/17/25 10:31 400 MG Furosemide 20 mg BIDD IV 02/05/25 18:00 02/17/25 05:29 20 MG Empaglifozin 10 mg DAILY PO 02/06/25 10:00 02/17/25 10:31 10 MG Amiodarone HCl 200 mg Q12HR PO 02/09/25 22:00 02/17/25 10:31 200 MG Fluconazole 400 mg DAILY PO 02/11/25 10:00 02/17/25 10:30 400 MG Enteral Nutritional Formula 240 ml TIDWM PO 02/12/25 12:00 02/17/25 12:10 240 ML Ondansetron HCl 4 mg Q4HPRN PRN IV 02/14/25 22:45 02/17/25 12:54 4 MG Potassium Chloride 40 meq DAILY PO 02/17/25 18:00 Acetaminophen/ Hydrocodone Bitart 1 tab Q4HP PRN PO 02/17/25 14:30 laboratory and microbiology Laboratory Tests 02/17/25 08:28 Test 02/17/25 08:28 Range/Units Serum Glucose 161 H 74-106 mg/dL Assessment/Plan Impression Acute hypoxemic respiratory failure Morbid obesity COPD- stable Pneumonia SBO Patient seen and examined Events Low oxygen requirements On 3 liters nasal cannula No acute events Labs and imaging reviewed Management Supplemental oxygen Titrate to maintain sats 90% or above Incentive spirometry Prn bipap to use during sleep Continue antibiotics F/u cultures Bronchodilators Monitor renal function Monitor electrolytes Supplement as needed Pain control Avoid oversedation F/u general surgery Awaiting placement DVT prophylaxis Dietary Evaluation Review Comments: 1. Advance TPN to meet at least 75% estimated needs 2. Contineu current POC Expected Outcomes/Goals: To meet >75% estimated needs Fu 2-3 days Plan discussed with: Patient MIK COLLAZO MD Feb 17, 2025 16:39
[2025-02-17] MEDS: POTASSIUM CHL 20 Meq TABLET PO SCH (16:58)
[2025-02-17] MEDS: HYDROcodone-ACET 10/325MG TAB PO PRN (19:46)
[2025-02-18] VITALS (21 sets, daily range): BP systolic 119–153; BP diastolic 72–84; PULSE 74–97; RESP 16–22; TEMP 98–98.4; O2SAT 93–100
--- NOTE | 2025-02-18 10:55 | DVHPN2 ---
Reviewed: Care Plan, H&P, Labs, Medications, Previous Orders, Radiology Changes from previous H/P or p: No Changes General: Per HPI Objective Vitals Vital Signs Date Time Temp Pulse Resp B/P (MAP) Pulse Ox O2 Delivery O2 Flow Rate FiO2 02/18/25 09:56 90 16 98 02/18/25 09:50 Nasal Cannula* 4 36 02/18/25 09:00 98.1 119/74 (89) 98.1 Intake/Output Intake and Output 02/18/25 07:00 Intake Total 600 ml Output Total 1750 ml Balance -1150 ml Intake Oral 600 ml Output Urine Total 1750 ml General Appearance: Alert, Oriented X3, No acute distress HEENT: Atraumatic, PERRLA, EOMI, Mucous membr. moist/pink Neck: Supple Lungs: Clear to auscultation, Normal air movement Cardiovascular: Regular rate, Normal S1, Normal S2, No murmurs, Gallops, Rubs Abdomen: Normal bowel sounds, Soft, No tenderness Neuro: Cranial nerves 3-12 NL Psych/Mental Status: Mental status NL Medications Current Medications Medications Dose Ordered Sig/Vincent Route Start Time Stop Time Status Last Admin Dose Admin Warfarin Sodium RX PROTOCOL PER PHARMACY PO 01/15/25 01:45 Cancel Lorazepam 0.5 mg Q6HP PRN IV 01/17/25 07:45 02/18/25 05:31 0.5 MG Metoprolol Tartrate 2.5 mg Q6HPRN PRN IV 01/19/25 13:00 Potassium Chloride 100 ml @ 50 mls/hr Q2H IV 01/26/25 17:30 01/26/25 21:29 UNV Albuterol 2.5 mg Q4HR NEB 02/03/25 06:00 02/18/25 09:50 2.5 MG Ipratropium [place] 0.5 mg Q4HR NEB 02/03/25 06:00 02/18/25 09:50 0.5 MG Albuterol 2.5 mg Q2HPRN PRN NEB 02/04/25 12:00 Ipratropium [place] 0.5 mg Q2HPRN PRN NEB 02/04/25 12:00 Ipratropium [place] 0.5 mg Q4HR NEB 02/05/25 14:00 Cancel Megestrol Acetate 400 mg DAILY PO 02/05/25 12:00 02/17/25 10:31 400 MG Furosemide 20 mg BIDD IV 02/05/25 18:00 02/18/25 05:05 20 MG Empaglifozin 10 mg DAILY PO 02/06/25 10:00 02/17/25 10:31 10 MG Amiodarone HCl 200 mg Q12HR PO 02/09/25 22:00 02/17/25 21:39 200 MG Fluconazole 400 mg DAILY PO 02/11/25 10:00 02/17/25 10:30 400 MG Enteral Nutritional Formula 240 ml TIDWM PO 02/12/25 12:00 02/18/25 07:45 240 ML Ondansetron HCl 4 mg Q4HPRN PRN IV 02/14/25 22:45 02/18/25 07:44 4 MG Potassium Chloride 40 meq DAILY PO 02/17/25 18:00 Acetaminophen/ Hydrocodone Bitart 1 tab Q4HP PRN PO 02/17/25 14:30 02/18/25 07:45 1 TAB Laboratory Results Laboratory Tests 02/17/25 08:28 Urinalysis Test 01/15/25 01:59 Urine Color Light-yellow (Yellow) Urine Clarity Clear (Clear) Urine pH 6.0 (5.0-9.0) Urine Specific [place] 1.018 (1.001-1.035) Urine Protein Negative (Negative) Urine Ketones Negative (Negative) Urine Blood Negative /uL (Negative) Urine Nitrite Negative (Negative) Urine Bilirubin Negative (Negative) Urine Urobilinogen Normal mg/dL (Negative) Urine Leukocyte Esterase Negative /uL (Negative) Urine RBC <1 /hpf (0 - 3) Urine Microscopic WBC /HPF (0-3) Urine Squamous Epithelial Cells None seen /hpf (<5) Urine Bacteria None seen /hpf (None Seen) Urine Glucose 4+ mg/dL (Normal) H Microbiology Microbiology Date/Time Source Procedure Growth Status 02/09/25 11:50 Nose MRSA Screen - Final Complete 01/25/25 09:35 Aspirate Gram Stain - Final Complete 01/25/25 09:35 Body Fluid Culture - Final Escherichia coli Presumptive Zenaida albicans Complete 01/15/25 00:28 Blood Blood Culture - Final NO GROWTH AFTER 5 DAYS OF INCUBATION. Complete Labs and/or images reviewed: Labs reviewed by me, Image(s) reviewed by me Assessment/Plan Assessment/Plan Acute hypoxic respiratory failure: Oxygen by nasal cannula, chest x-ray, consult for Chronic hypercarbic respiratory failure Dependence on home oxygen Intractable abdominal pain resolved Perforated viscus and pneumoperitoneum, with history of gastric bypass, conservative management consult by Dr. Bird appreciated Left upper quadrant abscess status post drainage discontinued antibiotics Lactic acidosis, resolved Zenaida in the abdominal abscess aspirate: Fluconazole converted to p.o. Sepsis due to above Acute respiratory distress Diabetes with hyperglycemia AFib on Coumadin Morbid obesity Obstructive sleep apnea: CPAP Acute hypokalemia: Replace potassium Lipase elevated, mild Nutrition: Glucerna Continue Physical therapy Plan discussed with: Patient My Orders Orders - PROMISE CASTANO MD Procedure Category Date Status Time Hydrocodone-Acet PHA 02/17/25 In Process 10/325mg Tab ([place] 14:30 Comprehensive LAB 02/18/25 Logged Metabolic Panel 07:21 Date of Service: Feb 18, 2025 Billing Provider: PROMISE CASTANO MD Common Visit Codes: [id number] CARE 30-74 MIN PROMISE CASTANO MD Feb 18, 2025 10:55
--- NOTE | 2025-02-18 14:16 | DVHPN2 ---
Progress Note - Dictate Date Seen: Feb 18, 2025 Medical Necessity Reason Pt with a Central, PICC or Fol: No vital signs Vital Sign Date Time Temp Pulse Resp B/P (MAP) Pulse Ox O2 Delivery O2 Flow Rate FiO2 02/18/25 14:07 79 16 98 02/18/25 14:01 Nasal Cannula 4.0 02/18/25 14:01 36 02/18/25 09:00 98.1 119/74 (89) 98.1 Total Intake and Output 02/17/25 02/17/25 02/18/25 14:59 22:59 06:59 Intake Total 600 ml Output Total 1350 ml 400 ml Balance -1350 ml 200 ml medications Current Medications Medications Dose Ordered Sig/Vincent Route Start Time Stop Time Status Last Admin Dose Admin Warfarin Sodium RX PROTOCOL PER PHARMACY PO 01/15/25 01:45 Cancel Lorazepam 0.5 mg Q6HP PRN IV 01/17/25 07:45 02/18/25 14:01 0.5 MG Metoprolol Tartrate 2.5 mg Q6HPRN PRN IV 01/19/25 13:00 Potassium Chloride 100 ml @ 50 mls/hr Q2H IV 01/26/25 17:30 01/26/25 21:29 UNV Albuterol 2.5 mg Q4HR NEB 02/03/25 06:00 02/18/25 14:01 2.5 MG Ipratropium [place] 0.5 mg Q4HR NEB 02/03/25 06:00 02/18/25 14:01 0.5 MG Albuterol 2.5 mg Q2HPRN PRN NEB 02/04/25 12:00 Ipratropium [place] 0.5 mg Q2HPRN PRN NEB 02/04/25 12:00 Ipratropium [place] 0.5 mg Q4HR NEB 02/05/25 14:00 Cancel Megestrol Acetate 400 mg DAILY PO 02/05/25 12:00 02/18/25 10:59 400 MG Furosemide 20 mg BIDD IV 02/05/25 18:00 02/18/25 05:05 20 MG Empaglifozin 10 mg DAILY PO 02/06/25 10:00 02/18/25 10:59 10 MG Amiodarone HCl 200 mg Q12HR PO 02/09/25 22:00 02/18/25 10:59 200 MG Fluconazole 400 mg DAILY PO 02/11/25 10:00 02/18/25 10:59 400 MG Enteral Nutritional Formula 240 ml TIDWM PO 02/12/25 12:00 02/18/25 12:14 240 ML Ondansetron HCl 4 mg Q4HPRN PRN IV 02/14/25 22:45 02/18/25 12:14 4 MG Potassium Chloride 40 meq DAILY PO 02/17/25 18:00 Acetaminophen/ Hydrocodone Bitart 1 tab Q4HP PRN PO 02/17/25 14:30 02/18/25 12:14 1 TAB laboratory and microbiology Laboratory Tests 02/17/25 08:28 Test 02/17/25 08:28 Range/Units Serum Glucose 161 H 74-106 mg/dL Assessment/Plan Impression Acute hypoxemic respiratory failure Morbid obesity COPD- stable Pneumonia SBO Patient seen and examined Events Low oxygen requirements On 3 liters nasal cannula No distress Labs and imaging reviewed Management Supplemental oxygen Titrate to maintain sats 90% or above Incentive spirometry Prn bipap to use during sleep Continue antibiotics F/u cultures Bronchodilators Monitor renal function Monitor electrolytes Supplement as needed Pain control Avoid oversedation F/u general surgery Awaiting placement DVT prophylaxis Dietary Evaluation Review Comments: 1. Advance TPN to meet at least 75% estimated needs 2. Contineu current POC Expected Outcomes/Goals: To meet >75% estimated needs Fu 2-3 days Plan discussed with: Patient MIK COLLAZO MD Feb 18, 2025 14:16
[2025-02-18 14:58] LABS: Alanine Aminotransferase 22 U/L (7-40); Albumin 3.6 g/dL (3.2-4.8); Alkaline Phosphatase 76 U/L (46-116); Anion Gap 8 (5-15); Aspartate Aminotransferase 17 U/L (<34); BUN/Creatinine Ratio 22.5 (10.0-20.0); Blood Urea Nitrogen 18 mg/dL (9-23); Calcium 9.5 mg/dL (8.7-10.4); Potassium 3.9 mmol/L (3.5-5.1); Sodium 138 mmol/L (136-145); Total Protein 7.5 g/dL (5.7-8.2)
[2025-02-18 14:59] LABS: Bilirubin, Total < 0.2 mg/dL (0.2-1.0); Carbon Dioxide 33 mmol/L (20-31); Chloride 97 mmol/L (98-107); Glucose 152 mg/dL (74-106)
--- NOTE | 2025-02-18 23:34 | DVHPN2 ---
Progress Note - Dictate Date Seen: Feb 18, 2025 Medical Necessity Reason Pt with a Central, PICC or Fol: No Subjective Patient was seen and evaluated in follow up. No overnight events. Patient complains of generalized pain. Patient remains on 4 LPM NC. CL 97, CO2 33. Telemetry reviewed. vital signs Vital Sign Date Time Temp Pulse Resp B/P (MAP) Pulse Ox O2 Delivery O2 Flow Rate FiO2 02/18/25 14:07 79 16 98 02/18/25 14:01 Nasal Cannula 4.0 02/18/25 14:01 36 02/18/25 13:00 98.0 133/75 (94) 98.0 Total Intake and Output 02/17/25 02/17/25 02/18/25 15:00 23:00 07:00 Intake Total 600 ml Output Total 1350 ml 400 ml Balance -1350 ml 200 ml medications Current Medications Medications Dose Ordered Sig/Vincent Route Start Time Stop Time Status Last Admin Dose Admin Warfarin Sodium RX PROTOCOL PER PHARMACY PO 01/15/25 01:45 Cancel Lorazepam 0.5 mg Q6HP PRN IV 01/17/25 07:45 02/18/25 14:01 0.5 MG Metoprolol Tartrate 2.5 mg Q6HPRN PRN IV 01/19/25 13:00 Potassium Chloride 100 ml @ 50 mls/hr Q2H IV 01/26/25 17:30 01/26/25 21:29 UNV Albuterol 2.5 mg Q4HR NEB 02/03/25 06:00 02/18/25 14:01 2.5 MG Ipratropium [place] 0.5 mg Q4HR NEB 02/03/25 06:00 02/18/25 14:01 0.5 MG Albuterol 2.5 mg Q2HPRN PRN NEB 02/04/25 12:00 Ipratropium [place] 0.5 mg Q2HPRN PRN NEB 02/04/25 12:00 Ipratropium [place] 0.5 mg Q4HR NEB 02/05/25 14:00 Cancel Megestrol Acetate 400 mg DAILY PO 02/05/25 12:00 02/18/25 10:59 400 MG Furosemide 20 mg BIDD IV 02/05/25 18:00 02/18/25 05:05 20 MG Empaglifozin 10 mg DAILY PO 02/06/25 10:00 02/18/25 10:59 10 MG Amiodarone HCl 200 mg Q12HR PO 02/09/25 22:00 02/18/25 10:59 200 MG Fluconazole 400 mg DAILY PO 02/11/25 10:00 02/18/25 10:59 400 MG Enteral Nutritional Formula 240 ml TIDWM PO 02/12/25 12:00 02/18/25 12:14 240 ML Ondansetron HCl 4 mg Q4HPRN PRN IV 02/14/25 22:45 02/18/25 12:14 4 MG Potassium Chloride 40 meq DAILY PO 02/17/25 18:00 Acetaminophen/ Hydrocodone Bitart 1 tab Q4HP PRN PO 02/17/25 14:30 02/18/25 12:14 1 TAB objective GENERAL: Alert and oriented x 3. No acute distress. EYES: PERRL, EOMI. Anicteric. HENT: Moist mucous membranes. LUNGS: Diminished breath sounds. CARDIOVASCULAR: Regular rate and rhythm. ABDOMEN: Soft, non-tender and non-distended. EXTREMITIES: No edema. NEUROLOGIC: No focal neurological deficits. SKIN: Warm, dry. laboratory and microbiology Laboratory Tests 02/18/25 14:29 02/17/25 08:28 Test 02/18/25 14:29 Range/Units Serum Glucose 152 H 74-106 mg/dL Problem List Acute decompensated HFpEF, NYHA class III. Paroxysmal Atrial fibrillation, Stage 3a (on Xarelto). Hypertension. Pneumoperitoneum. Sepsis. History of abdominal aortic aneurysm. Pulmonary hypertension. Type 2 diabetes mellitus. Morbid obesity. Assessment/Plan Continued all current supportive medical care. [place] for pain management. Amiodarone. DVT and GI prophylactics. Diuretics with Lasix. Metoprolol. Additional plan as per the hospital course. Dietary Evaluation Review Comments: 1. Advance TPN to meet at least 75% estimated needs 2. Contineu current POC Expected Outcomes/Goals: To meet >75% estimated needs Fu 2-3 days Plan discussed with: Patient KRISTIN JOSEPH MD Feb 18, 2025 15:36
[2025-02-19] VITALS (21 sets, daily range): BP systolic 110–154; BP diastolic 60–82; PULSE 65–90; RESP 16–20; TEMP 97.5–98.4; O2SAT 18–100
--- NOTE | 2025-02-19 11:26 | DVHPN2 ---
Reviewed: Care Plan, H&P, Labs, Medications, Previous Orders, Radiology Changes from previous H/P or p: No Changes General: Per HPI Objective Vitals Vital Signs Date Time Temp Pulse Resp B/P (MAP) Pulse Ox O2 Delivery O2 Flow Rate FiO2 02/19/25 11:17 86 18 02/19/25 11:14 94 02/19/25 09:00 98.0 154/81 (105) 98.0 02/19/25 08:00 Nasal Cannula* 4 36 Intake/Output Intake and Output 02/19/25 07:00 Intake Total 2060 ml Output Total 3100 ml Balance -1040 ml Intake Oral 2060 ml Output Urine Total 3100 ml # Bowel Movements 2 General Appearance: Alert, Oriented X3, No acute distress HEENT: Atraumatic, PERRLA, EOMI, Mucous membr. moist/pink Neck: Supple Lungs: Clear to auscultation, Normal air movement Cardiovascular: Regular rate, Normal S1, Normal S2, No murmurs, Gallops, Rubs Abdomen: Normal bowel sounds, Soft, No tenderness Neuro: Cranial nerves 3-12 NL Psych/Mental Status: Mental status NL Medications Current Medications Medications Dose Ordered Sig/Vincent Route Start Time Stop Time Status Last Admin Dose Admin Warfarin Sodium RX PROTOCOL PER PHARMACY PO 01/15/25 01:45 Cancel Lorazepam 0.5 mg Q6HP PRN IV 01/17/25 07:45 02/19/25 08:45 0.5 MG Potassium Chloride 100 ml @ 50 mls/hr Q2H IV 01/26/25 17:30 01/26/25 21:29 UNV Albuterol 2.5 mg Q4HR NEB 02/03/25 06:00 02/19/25 11:13 2.5 MG Ipratropium [place] 0.5 mg Q4HR NEB 02/03/25 06:00 02/19/25 11:13 0.5 MG Albuterol 2.5 mg Q2HPRN PRN NEB 02/04/25 12:00 Ipratropium [place] 0.5 mg Q2HPRN PRN NEB 02/04/25 12:00 Ipratropium [place] 0.5 mg Q4HR NEB 02/05/25 14:00 Cancel Megestrol Acetate 400 mg DAILY PO 02/05/25 12:00 02/19/25 08:43 400 MG Furosemide 20 mg BIDD IV 02/05/25 18:00 02/19/25 05:46 20 MG Empaglifozin 10 mg DAILY PO 02/06/25 10:00 02/19/25 08:40 10 MG Amiodarone HCl 200 mg Q12HR PO 02/09/25 22:00 02/19/25 08:40 200 MG Fluconazole 400 mg DAILY PO 02/11/25 10:00 02/19/25 08:42 400 MG Enteral Nutritional Formula 240 ml TIDWM PO 02/12/25 12:00 02/19/25 08:00 240 ML Ondansetron HCl 4 mg Q4HPRN PRN IV 02/14/25 22:45 02/19/25 09:17 4 MG Potassium Chloride 40 meq DAILY PO 02/17/25 18:00 Acetaminophen/ Hydrocodone Bitart 1 tab Q4HP PRN PO 02/17/25 14:30 02/19/25 09:20 1 TAB Laboratory Results Laboratory Tests 02/17/25 08:28 02/18/25 14:29 Chemistry Test 02/18/25 14:29 Albumin 3.6 g/dL (3.2-4.8) Calcium Level 9.5 mg/dL (8.7-10.4) Total Protein 7.5 g/dL (5.7-8.2) LFT Test 02/18/25 14:29 Alanine Aminotransferase (ALT) 22 U/L (7-40) Alkaline Phosphatase 76 U/L (46-116) Aspartate Amino Transferase (AST) 17 U/L (<34) Total Bilirubin < 0.2 mg/dL (0.2-1.0) L Urinalysis Test 01/15/25 01:59 Urine Color Light-yellow (Yellow) Urine Clarity Clear (Clear) Urine pH 6.0 (5.0-9.0) Urine Specific [place] 1.018 (1.001-1.035) Urine Protein Negative (Negative) Urine Ketones Negative (Negative) Urine Blood Negative /uL (Negative) Urine Nitrite Negative (Negative) Urine Bilirubin Negative (Negative) Urine Urobilinogen Normal mg/dL (Negative) Urine Leukocyte Esterase Negative /uL (Negative) Urine RBC <1 /hpf (0 - 3) Urine Microscopic WBC /HPF (0-3) Urine Squamous Epithelial Cells None seen /hpf (<5) Urine Bacteria None seen /hpf (None Seen) Urine Glucose 4+ mg/dL (Normal) H Microbiology Microbiology Date/Time Source Procedure Growth Status 02/09/25 11:50 Nose MRSA Screen - Final Complete 01/25/25 09:35 Aspirate Gram Stain - Final Complete 01/25/25 09:35 Body Fluid Culture - Final Escherichia coli Presumptive Zenaida albicans Complete 01/15/25 00:28 Blood Blood Culture - Final NO GROWTH AFTER 5 DAYS OF INCUBATION. Complete Labs and/or images reviewed: Labs reviewed by me, Image(s) reviewed by me Assessment/Plan Assessment/Plan Acute hypoxic respiratory failure: Oxygen by nasal cannula, chest x-ray, consult for Chronic hypercarbic respiratory failure Dependence on home oxygen Intractable abdominal pain resolved Perforated viscus and pneumoperitoneum, with history of gastric bypass, conservative management consult by Dr. Bird appreciated Left upper quadrant abscess status post drainage discontinued antibiotics Lactic acidosis, resolved Zenaida in the abdominal abscess aspirate: Fluconazole converted to p.o. Sepsis due to above Acute respiratory distress Diabetes with hyperglycemia AFib on Coumadin Morbid obesity Obstructive sleep apnea: CPAP Acute hypokalemia: Replace potassium Lipase elevated, mild Nutrition: Glucerna Continue Physical therapy Plan discussed with: Patient My Orders Orders - PROMISE CASTANO MD Procedure Category Date Status Time Communication Order ORDERS 02/18/25 Transmitted 17:00 Date of Service: Feb 19, 2025 Billing Provider: PROMISE CASTANO MD Common Visit Codes: [id number] INP/OBS CARE(HIGH) PROMISE CASTANO MD Feb 19, 2025 11:26
[2025-02-19] MEDS: ALPRAZolam 0.5 MG TAB PO SCH (13:29)
--- NOTE | 2025-02-19 16:26 | DVHPN2 ---
Progress Note - Dictate Date Seen: Feb 19, 2025 Medical Necessity Reason Pt with a Central, PICC or Fol: No vital signs Vital Sign Date Time Temp Pulse Resp B/P (MAP) Pulse Ox O2 Delivery O2 Flow Rate FiO2 02/19/25 15:00 78 18 99 02/19/25 13:00 97.5 132/80 (97) 97.5 02/19/25 08:00 Nasal Cannula* 4 36 Total Intake and Output 02/18/25 02/18/25 02/19/25 15:00 23:00 07:00 Intake Total 1260 ml 800 ml Output Total 1900 ml 1200 ml Balance -640 ml -400 ml medications Current Medications Medications Dose Ordered Sig/Vincent Route Start Time Stop Time Status Last Admin Dose Admin Warfarin Sodium RX PROTOCOL PER PHARMACY PO 01/15/25 01:45 Cancel Potassium Chloride 100 ml @ 50 mls/hr Q2H IV 01/26/25 17:30 01/26/25 21:29 UNV Albuterol 2.5 mg Q4HR NEB 02/03/25 06:00 02/19/25 14:54 2.5 MG Ipratropium [place] 0.5 mg Q4HR NEB 02/03/25 06:00 02/19/25 14:54 0.5 MG Albuterol 2.5 mg Q2HPRN PRN NEB 02/04/25 12:00 Ipratropium [place] 0.5 mg Q2HPRN PRN NEB 02/04/25 12:00 Ipratropium [place] 0.5 mg Q4HR NEB 02/05/25 14:00 Cancel Megestrol Acetate 400 mg DAILY PO 02/05/25 12:00 02/19/25 08:43 400 MG Furosemide 20 mg BIDD IV 02/05/25 18:00 02/19/25 05:46 20 MG Empaglifozin 10 mg DAILY PO 02/06/25 10:00 02/19/25 08:40 10 MG Amiodarone HCl 200 mg Q12HR PO 02/09/25 22:00 02/19/25 08:40 200 MG Fluconazole 400 mg DAILY PO 02/11/25 10:00 02/19/25 08:42 400 MG Enteral Nutritional Formula 240 ml TIDWM PO 02/12/25 12:00 02/19/25 12:00 240 ML Ondansetron HCl 4 mg Q4HPRN PRN IV 02/14/25 22:45 02/19/25 13:23 4 MG Potassium Chloride 40 meq DAILY PO 02/17/25 18:00 Acetaminophen/ Hydrocodone Bitart 1 tab Q4HP PRN PO 02/17/25 14:30 02/19/25 13:24 1 TAB Alprazolam 1 mg TID PO 02/19/25 14:00 02/19/25 13:29 1 MG laboratory and microbiology Laboratory Tests 02/18/25 14:29 02/17/25 08:28 Test 02/18/25 14:29 Range/Units Serum Glucose 152 H 74-106 mg/dL Assessment/Plan Impression Acute hypoxemic respiratory failure Morbid obesity COPD- stable Pneumonia SBO Patient seen and examined Events Low oxygen requirements On 3 liters nasal cannula No acute events Labs and imaging reviewed Management Supplemental oxygen Titrate to maintain sats 90% or above Incentive spirometry Prn bipap to use during sleep Continue antibiotics F/u cultures Bronchodilators Monitor renal function Monitor electrolytes Supplement as needed Pain control Avoid oversedation F/u general surgery Awaiting placement DVT prophylaxis Dietary Evaluation Review Comments: 1. Advance TPN to meet at least 75% estimated needs 2. Contineu current POC Expected Outcomes/Goals: To meet >75% estimated needs Fu 2-3 days Plan discussed with: Patient MIK COLLAZO MD Feb 19, 2025 16:26
--- NOTE | 2025-02-19 23:46 | DVHPN2 ---
Progress Note - Dictate Date Seen: Feb 19, 2025 Medical Necessity Reason Pt with a Central, PICC or Fol: No Subjective Patient was seen and evaluated in follow up. Patient on 4 LPM NC. Patient complains of generalized pain. Telemetry reviewed. vital signs Vital Sign Date Time Temp Pulse Resp B/P (MAP) Pulse Ox O2 Delivery O2 Flow Rate FiO2 02/19/25 13:00 97.5 77 18 132/80 (97) 96 97.5 02/19/25 08:00 Nasal Cannula* 4 36 Total Intake and Output 02/18/25 02/18/25 02/19/25 14:59 22:59 06:59 Intake Total 1260 ml 800 ml Output Total 1900 ml 1200 ml Balance -640 ml -400 ml medications Current Medications Medications Dose Ordered Sig/Vincent Route Start Time Stop Time Status Last Admin Dose Admin Warfarin Sodium RX PROTOCOL PER PHARMACY PO 01/15/25 01:45 Cancel Potassium Chloride 100 ml @ 50 mls/hr Q2H IV 01/26/25 17:30 01/26/25 21:29 UNV Albuterol 2.5 mg Q4HR NEB 02/03/25 06:00 02/19/25 14:54 2.5 MG Ipratropium [place] 0.5 mg Q4HR NEB 02/03/25 06:00 02/19/25 14:54 0.5 MG Albuterol 2.5 mg Q2HPRN PRN NEB 02/04/25 12:00 Ipratropium [place] 0.5 mg Q2HPRN PRN NEB 02/04/25 12:00 Ipratropium [place] 0.5 mg Q4HR NEB 02/05/25 14:00 Cancel Megestrol Acetate 400 mg DAILY PO 02/05/25 12:00 02/19/25 08:43 400 MG Furosemide 20 mg BIDD IV 02/05/25 18:00 02/19/25 05:46 20 MG Empaglifozin 10 mg DAILY PO 02/06/25 10:00 02/19/25 08:40 10 MG Amiodarone HCl 200 mg Q12HR PO 02/09/25 22:00 02/19/25 08:40 200 MG Fluconazole 400 mg DAILY PO 02/11/25 10:00 02/19/25 08:42 400 MG Enteral Nutritional Formula 240 ml TIDWM PO 02/12/25 12:00 02/19/25 12:00 240 ML Ondansetron HCl 4 mg Q4HPRN PRN IV 02/14/25 22:45 02/19/25 13:23 4 MG Potassium Chloride 40 meq DAILY PO 02/17/25 18:00 Acetaminophen/ Hydrocodone [place] 1 tab Q4HP PRN PO 02/17/25 14:30 02/19/25 13:24 1 TAB Alprazolam 1 mg TID PO 02/19/25 14:00 02/19/25 13:29 1 MG objective GENERAL: Alert and oriented x 3. No acute distress. EYES: PERRL, EOMI. Anicteric. HENT: Moist mucous membranes. LUNGS: Diminished breath sounds. CARDIOVASCULAR: Regular rate and rhythm. ABDOMEN: Soft, non-tender and non-distended. EXTREMITIES: No edema. NEUROLOGIC: No focal neurological deficits. SKIN: Warm, dry. laboratory and microbiology Laboratory Tests 02/18/25 14:29 02/17/25 08:28 Test 02/18/25 14:29 Range/Units Serum Glucose 152 H 74-106 mg/dL Problem List Acute decompensated HFpEF, NYHA class III. Paroxysmal Atrial fibrillation, Stage 3a (on Xarelto). Hypertension. Pneumoperitoneum. Sepsis. History of abdominal aortic aneurysm. Pulmonary hypertension. Type 2 diabetes mellitus. Morbid obesity. Assessment/Plan Continued all current supportive medical care. [place] for pain management. Amiodarone. Diuretics with Lasix. Metoprolol. Additional plan as per the hospital course. Dietary Evaluation Review Comments: 1. Advance TPN to meet at least 75% estimated needs 2. Contineu current POC Expected Outcomes/Goals: To meet >75% estimated needs Fu 2-3 days Plan discussed with: Patient KRISTIN JOSEPH MD Feb 19, 2025 14:57
[2025-02-20] VITALS (20 sets, daily range): BP systolic 108–131; BP diastolic 61–74; PULSE 65–83; RESP 14–20; TEMP 97.4–98.6; O2SAT 93–100
--- NOTE | 2025-02-20 13:26 | DVHPN2 ---
Reviewed: Care Plan, H&P, Labs, Medications, Previous Orders, Radiology Changes from previous H/P or p: No Changes General: Per HPI Objective Vitals Vital Signs Date Time Temp Pulse Resp B/P (MAP) Pulse Ox O2 Delivery O2 Flow Rate FiO2 02/20/25 10:10 70 16 100 02/20/25 09:00 97.8 115/65 (82) 97.8 02/20/25 08:10 Nasal Cannula* 4 36 Intake/Output Intake and Output 02/20/25 07:00 Intake Total 1210 ml Output Total 2350 ml Balance -1140 ml Intake Oral 1210 ml Output Urine Total 2350 ml # Bowel Movements 3 General Appearance: Alert, Oriented X3, No acute distress HEENT: Atraumatic, PERRLA, EOMI, Mucous membr. moist/pink Neck: Supple Lungs: Clear to auscultation, Normal air movement Cardiovascular: Regular rate, Normal S1, Normal S2, No murmurs, Gallops, Rubs Abdomen: Normal bowel sounds, Soft, No tenderness Neuro: Cranial nerves 3-12 NL Psych/Mental Status: Mental status NL Medications Current Medications Medications Dose Ordered Sig/Vincent Route Start Time Stop Time Status Last Admin Dose Admin Warfarin Sodium RX PROTOCOL PER PHARMACY PO 01/15/25 01:45 Cancel Potassium Chloride 100 ml @ 50 mls/hr Q2H IV 01/26/25 17:30 01/26/25 21:29 UNV Albuterol 2.5 mg Q4HR NEB 02/03/25 06:00 02/20/25 10:02 2.5 MG Ipratropium [place] 0.5 mg Q4HR NEB 02/03/25 06:00 02/20/25 10:02 0.5 MG Albuterol 2.5 mg Q2HPRN PRN NEB 02/04/25 12:00 Ipratropium [place] 0.5 mg Q2HPRN PRN NEB 02/04/25 12:00 Ipratropium [place] 0.5 mg Q4HR NEB 02/05/25 14:00 Cancel Megestrol Acetate 400 mg DAILY PO 02/05/25 12:00 02/20/25 08:32 400 MG Furosemide 20 mg BIDD IV 02/05/25 18:00 02/20/25 06:36 20 MG Empaglifozin 10 mg DAILY PO 02/06/25 10:00 02/20/25 08:41 10 MG Amiodarone HCl 200 mg Q12HR PO 02/09/25 22:00 02/20/25 08:42 200 MG Fluconazole 400 mg DAILY PO 02/11/25 10:00 02/20/25 08:40 400 MG Enteral Nutritional Formula 240 ml TIDWM PO 02/12/25 12:00 02/20/25 11:01 240 ML Ondansetron HCl 4 mg Q4HPRN PRN IV 02/14/25 22:45 02/20/25 08:33 4 MG Potassium Chloride 40 meq DAILY PO 02/17/25 18:00 02/20/25 08:38 40 MEQ Acetaminophen/ Hydrocodone [place] 1 tab Q4HP PRN PO 02/17/25 14:30 02/20/25 08:43 1 TAB Alprazolam 1 mg TID PO 02/19/25 14:00 02/20/25 06:35 1 MG Laboratory Results Laboratory Tests 02/17/25 08:28 02/18/25 14:29 Urinalysis Test 01/15/25 01:59 Urine Color Light-yellow (Yellow) Urine Clarity Clear (Clear) Urine pH 6.0 (5.0-9.0) Urine Specific [place] 1.018 (1.001-1.035) Urine Protein Negative (Negative) Urine Ketones Negative (Negative) Urine Blood Negative /uL (Negative) Urine Nitrite Negative (Negative) Urine Bilirubin Negative (Negative) Urine Urobilinogen Normal mg/dL (Negative) Urine Leukocyte Esterase Negative /uL (Negative) Urine RBC <1 /hpf (0 - 3) Urine Microscopic WBC /HPF (0-3) Urine Squamous Epithelial Cells None seen /hpf (<5) Urine Bacteria None seen /hpf (None Seen) Urine Glucose 4+ mg/dL (Normal) H Microbiology Microbiology Date/Time Source Procedure Growth Status 02/09/25 11:50 Nose MRSA Screen - Final Complete 01/25/25 09:35 Aspirate Gram Stain - Final Complete 01/25/25 09:35 Body Fluid Culture - Final Escherichia coli Presumptive Zenaida albicans Complete 01/15/25 00:28 Blood Blood Culture - Final NO GROWTH AFTER 5 DAYS OF INCUBATION. Complete Labs and/or images reviewed: Labs reviewed by me, Image(s) reviewed by me Assessment/Plan Assessment/Plan Acute hypoxic respiratory failure: Oxygen by nasal cannula, chest x-ray, consult for Chronic hypercarbic respiratory failure Dependence on home oxygen Intractable abdominal pain resolved Perforated viscus and pneumoperitoneum, with history of gastric bypass, conservative management consult by Dr. Bird appreciated Left upper quadrant abscess status post drainage discontinued antibiotics Lactic acidosis, resolved Zeanida in the abdominal abscess aspirate: Fluconazole converted to p.o. Sepsis due to above Acute respiratory distress Diabetes with hyperglycemia AFib on Coumadin Morbid obesity Obstructive sleep apnea: CPAP Acute hypokalemia: Replace potassium Lipase elevated, mild Nutrition: Glucerna Continue Physical therapy Continue current management Plan discussed with: Patient Date of Service: Feb 20, 2025 Billing Provider: PROMISE CASTANO MD Common Visit Codes: [id number] INP/OBS CARE(HIGH) PROMISE CASTANO MD Feb 20, 2025 13:26
--- NOTE | 2025-02-20 18:59 | DVHPN2 ---
Progress Note - Dictate Date Seen: Feb 20, 2025 Medical Necessity Reason Pt with a Central, PICC or Fol: No vital signs Vital Sign Date Time Temp Pulse Resp B/P (MAP) Pulse Ox O2 Delivery O2 Flow Rate FiO2 02/20/25 17:55 133/78 02/20/25 17:00 98.3 68 19 99 98.3 02/20/25 08:10 Nasal Cannula* 4 36 Total Intake and Output 02/19/25 02/19/25 02/20/25 15:00 23:00 07:00 Intake Total 860 ml 350 ml Output Total 1150 ml 1200 ml Balance -290 ml -850 ml medications Current Medications Medications Dose Ordered Sig/Vincent Route Start Time Stop Time Status Last Admin Dose Admin Warfarin Sodium RX PROTOCOL PER PHARMACY PO 01/15/25 01:45 Cancel Potassium Chloride 100 ml @ 50 mls/hr Q2H IV 01/26/25 17:30 01/26/25 21:29 UNV Albuterol 2.5 mg Q4HR NEB 02/03/25 06:00 02/20/25 18:51 2.5 MG Ipratropium [place] 0.5 mg Q4HR NEB 02/03/25 06:00 02/20/25 18:51 0.5 MG Albuterol 2.5 mg Q2HPRN PRN NEB 02/04/25 12:00 Ipratropium [place] 0.5 mg Q2HPRN PRN NEB 02/04/25 12:00 Ipratropium [place] 0.5 mg Q4HR NEB 02/05/25 14:00 Cancel Megestrol Acetate 400 mg DAILY PO 02/05/25 12:00 02/20/25 08:32 400 MG Furosemide 20 mg BIDD IV 02/05/25 18:00 02/20/25 17:55 20 MG Empaglifozin 10 mg DAILY PO 02/06/25 10:00 02/20/25 08:41 10 MG Amiodarone HCl 200 mg Q12HR PO 02/09/25 22:00 02/20/25 08:42 200 MG Fluconazole 400 mg DAILY PO 02/11/25 10:00 02/20/25 08:40 400 MG Enteral Nutritional Formula 240 ml TIDWM PO 02/12/25 12:00 02/20/25 18:10 240 ML Ondansetron HCl 4 mg Q4HPRN PRN IV 02/14/25 22:45 02/20/25 18:11 4 MG Potassium Chloride 40 meq DAILY PO 02/17/25 18:00 02/20/25 08:38 40 MEQ Acetaminophen/ Hydrocodone [place] 1 tab Q4HP PRN PO 02/17/25 14:30 02/20/25 18:13 1 TAB Alprazolam 1 mg TID PO 02/19/25 14:00 02/20/25 14:09 1 MG laboratory and microbiology Laboratory Tests 02/18/25 14:29 02/17/25 08:28 Test 02/18/25 14:29 Range/Units Serum Glucose 152 H 74-106 mg/dL Assessment/Plan Impression Acute hypoxemic respiratory failure Morbid obesity COPD- stable Pneumonia SBO Patient seen and examined Events Low oxygen requirements On 3 liters nasal cannula No distress Labs and imaging reviewed Management Supplemental oxygen Titrate to maintain sats 90% or above Incentive spirometry Prn bipap to use during sleep Continue antibiotics F/u cultures Bronchodilators Monitor renal function Monitor electrolytes Supplement as needed Pain control Avoid oversedation F/u general surgery Awaiting placement DVT prophylaxis Dietary Evaluation Review Comments: 1. Advance TPN to meet at least 75% estimated needs 2. Contineu current POC Expected Outcomes/Goals: To meet >75% estimated needs Fu 2-3 days Plan discussed with: Patient MIK COLLAZO MD Feb 20, 2025 18:59
--- NOTE | 2025-02-20 21:20 | DVHPN2 ---
Progress Note - Dictate Date Seen: Feb 20, 2025 Medical Necessity Reason Pt with a Central, PICC or Fol: No Subjective Patient was seen and evaluated in follow up. Patient resting in bed. Patient remains on 4 LPM NC. Patient is receiving PRN nebulized breathing treatments. Telemetry reviewed. vital signs Vital Sign Date Time Temp Pulse Resp B/P (MAP) Pulse Ox O2 Delivery O2 Flow Rate FiO2 02/20/25 20:00 94 Nasal Cannula* 4 36 02/20/25 18:15 65 18 02/20/25 17:55 133/78 02/20/25 17:00 98.3 98.3 Total Intake and Output 02/19/25 02/19/25 02/20/25 14:59 22:59 06:59 Intake Total 860 ml 350 ml Output Total 1150 ml 1200 ml Balance -290 ml -850 ml medications Current Medications Medications Dose Ordered Sig/Vincent Route Start Time Stop Time Status Last Admin Dose Admin Warfarin Sodium RX PROTOCOL PER PHARMACY PO 01/15/25 01:45 Cancel Potassium Chloride 100 ml @ 50 mls/hr Q2H IV 01/26/25 17:30 01/26/25 21:29 UNV Albuterol 2.5 mg Q4HR NEB 02/03/25 06:00 02/20/25 18:51 2.5 MG Ipratropium [place] 0.5 mg Q4HR NEB 02/03/25 06:00 02/20/25 18:51 0.5 MG Albuterol 2.5 mg Q2HPRN PRN NEB 02/04/25 12:00 Ipratropium [place] 0.5 mg Q2HPRN PRN NEB 02/04/25 12:00 Ipratropium [place] 0.5 mg Q4HR NEB 02/05/25 14:00 Cancel Megestrol Acetate 400 mg DAILY PO 02/05/25 12:00 02/20/25 08:32 400 MG Furosemide 20 mg BIDD IV 02/05/25 18:00 02/20/25 17:55 20 MG Empaglifozin 10 mg DAILY PO 02/06/25 10:00 02/20/25 08:41 10 MG Amiodarone HCl 200 mg Q12HR PO 02/09/25 22:00 02/20/25 08:42 200 MG Fluconazole 400 mg DAILY PO 02/11/25 10:00 02/20/25 08:40 400 MG Enteral Nutritional Formula 240 ml TIDWM PO 02/12/25 12:00 02/20/25 18:10 240 ML Ondansetron HCl 4 mg Q4HPRN PRN IV 02/14/25 22:45 02/20/25 18:11 4 MG Potassium Chloride 40 meq DAILY PO 02/17/25 18:00 02/20/25 08:38 40 MEQ Acetaminophen/ Hydrocodone [place] 1 tab Q4HP PRN PO 02/17/25 14:30 02/20/25 18:13 1 TAB Alprazolam 1 mg TID PO 02/19/25 14:00 02/20/25 14:09 1 MG objective GENERAL: Alert and oriented x 3. No acute distress. EYES: PERRL, EOMI. Anicteric. HENT: Moist mucous membranes. LUNGS: Diminished breath sounds. CARDIOVASCULAR: Regular rate and rhythm. ABDOMEN: Soft, non-tender and non-distended. EXTREMITIES: No edema. NEUROLOGIC: No focal neurological deficits. SKIN: Warm, dry. laboratory and microbiology Laboratory Tests 02/18/25 14:29 02/17/25 08:28 Test 02/18/25 14:29 Range/Units Serum Glucose 152 H 74-106 mg/dL Problem List Acute decompensated HFpEF, NYHA class III. Paroxysmal Atrial fibrillation, Stage 3a (on Xarelto). Hypertension. Pneumoperitoneum. Sepsis. History of abdominal aortic aneurysm. Pulmonary hypertension. Type 2 diabetes mellitus. Morbid obesity. Assessment/Plan Continued all current supportive medical care. [place] for pain management. Amiodarone. Diuretics with Lasix. Metoprolol. Additional plan as per the hospital course. Dietary Evaluation Review Comments: 1. Advance TPN to meet at least 75% estimated needs 2. Contineu current POC Expected Outcomes/Goals: To meet >75% estimated needs Fu 2-3 days Plan discussed with: Patient KRISTIN JOSEPH MD Feb 20, 2025 21:20
[2025-02-21] VITALS (16 sets, daily range): BP systolic 111–133; BP diastolic 43–76; PULSE 65–82; RESP 16–20; TEMP 97.7–98.4; O2SAT 95–99
--- NOTE | 2025-02-21 11:47 | DVHDS2 ---
Discharge Summary Date of Admission January 15, 2025 at 01:37 Date of Discharge: Feb 21, 2025 Admitting Diagnosis Abdominal pain Wounds: None Labs/Diagnostic Data: Laboratory Results Test 02/18/25 14:29 02/17/25 08:28 02/16/25 17:13 02/10/25 09:57 Sodium Level 138 mmol/L (136-145) Potassium Level 3.9 mmol/L (3.5-5.1) Chloride Level 97 mmol/L (98-107) Carbon Dioxide Level 33 mmol/L (20-31) Anion Gap 8 (5-15) Blood Urea Nitrogen 18 mg/dL (9-23) Creatinine 0.80 mg/dL (0.700-1.30) Glomerular Filtration Rate Calc 92 mL/min (>90) BUN/Creatinine Ratio 22.5 (10.0-20.0) Serum Glucose 152 mg/dL (74-106) Calcium Level 9.5 mg/dL (8.7-10.4) Total Bilirubin < 0.2 mg/dL (0.2-1.0) Aspartate Amino Transferase (AST) 17 U/L (<34) Alanine Aminotransferase (ALT) 22 U/L (7-40) Alkaline Phosphatase 76 U/L (46-116) Total Protein 7.5 g/dL (5.7-8.2) Albumin 3.6 g/dL (3.2-4.8) White Blood Count 9.6 10^3/uL (4.4-10.8) Red Blood Count 4.02 10^6/uL (4.5-5.90) Hemoglobin 9.1 g/dL (13.5-17.5) Hematocrit 29.3 % (41.0-53.0) Mean Corpuscular Volume 72.9 fL (80.0-100.0) Mean Corpuscular Hemoglobin 22.5 pg (28.0-32.0) Mean Corpuscular Hemoglobin Concent 30.9 g/dL (32.0-36.0) Red Cell Distribution Width 20.3 % (11.8-14.3) Platelet Count 475 10^3/uL (140-450) Mean Platelet Volume 6.9 fL (6.9-10.8) Neutrophils (%) (Auto) 71.3 % (37.0-80.0) Lymphocytes (%) (Auto) 14.0 % (10.0-50.0) Monocytes (%) (Auto) 10.9 % (0.0-12.0) Eosinophils (%) (Auto) 2.8 % (0.0-7.0) Basophils (%) (Auto) 1.0 % (0.0-2.0) Neutrophils # (Auto) 6.8 10 ^3/uL (1.6-8.6) Lymphocytes # (Auto) 1.3 10 ^3/uL (0.4-5.4) Monocytes # (Auto) 1.0 10 ^3/uL (0-1.3) Eosinophils # (Auto) 0.3 10 ^3/uL (0-0.8) Basophils # (Auto) 0.1 10 ^3/uL (0-0.2) Nucleated Red Blood Cells 0.3 % POC Glucose 123 mg/dl (70-106) Phosphorus Level 3.6 mg/dL (2.4-5.1) Magnesium Level 2.2 mg/dL (1.6-2.6) Test 02/09/25 08:18 02/05/25 13:22 02/05/25 04:40 02/03/25 12:29 Estimated GFR () 157 mL/min Estimated GFR (Non- 130 mL/min D-Dimer, Quantitative 3.52 mg/L FEU (0.0-0.49) Triglycerides Level 92 mg/dL (< 150) Blood Gas Specimen Type Arterial Blood Gas Sample Site Right radial Blood Gas Patient Temperature 37.0 Arterial Blood Date Drawn [id number] Arterial Blood pH 7.342 (7.350-7.450) Arterial Blood Partial Pressure CO2 64.2 mmHg (35.0-48.0) Arterial Blood Partial Pressure O2 < 36.5 mmHg (83.0-108.0) Arterial Blood HCO3 34.0 mmol/L (21.0-28.0) Arterial Blood Oxygen Saturation 64.6 % (94.0-98.0) Arterial Blood Base Excess 7.0 mmol/L (-2.0-3.0) Arterial Blood Oxyhemoglobin 63.8 % (94.0-98.0) Arterial Blood Carboxyhemoglobin 1.1 % (0.5-1.5) Arterial Blood Methemoglobin 0.2 % (0.0-1.5) Agustin Test Yes Blood Gas Total Hemoglobin 8.80 g/dL (13.5-17.5) Blood Gas Modality Room air FiO2 % 21.0 Blood Gas Critical Value Read Back Yes Blood Gas Notified Whom H cordelia francis Blood Gas Notified Time [id number] Blood Gas Notified By Tax Attorney t patricia Test 02/02/25 05:07 01/25/25 09:35 01/24/25 09:50 01/19/25 00:46 Platelet Estimate Adequate Hypochromasia (manual) Moderate Microcytosis Moderate Body Fluid Glucose mg/dL (.) Body Fluid Creatinine mg/dL (.) Differential Total Cells Counted 100.0 (100) Neutrophils % (Manual) 84 (37.0-80.0) Band Neutrophils % (Manual) 5 Lymphocytes % (Manual) 4 (10.0-50.0) Monocytes % (Manual) 7 (0-12) Eosinophils % (Manual) 0 (0-7) Basophils % (Manual) 0 (0.0-2.0) Metamyelocytes % (manual) 0 Myelocytes % (Manual) 0 Promyelocytes % (Manual) 0 Blast Cells % (Manual) 0 Reactive Lymphocytes 0 Prothrombin Time 10.3 sec (9.3-11.8) Prothrombin Time INR 0.97 (0.9-1.15) Activated Partial Thromboplast Time 26.7 SEC (24.5-34.5) Vancomycin Level Trough 13.0 ug/mL (5-10) Test 01/17/25 08:10 01/17/25 07:51 01/17/25 06:10 01/17/25 05:02 Lactic Acid Level 1.1 mmol/L (0.4-2.0) Blood Gas Set Respiration Rate 16.0 Blood Gas EPAP 5 Blood Gas IPAP 12 Blood Gas Liter Flow 2.00 Blood Gas Spontaneous Rate 22 Test 01/16/25 20:45 01/15/25 01:59 01/15/25 01:28 01/15/25 00:28 Hemoglobin A1c 7.2 % A1C (<5.7) Urine Color Light-yellow (Yellow) Urine Clarity Clear (Clear) Urine pH 6.0 (5.0-9.0) Urine Specific [place] 1.018 (1.001-1.035) Urine Protein Negative (Negative) Urine Ketones Negative (Negative) Urine Blood Negative /uL (Negative) Urine Nitrite Negative (Negative) Urine Bilirubin Negative (Negative) Urine Urobilinogen Normal mg/dL (Negative) Urine Leukocyte Esterase Negative /uL (Negative) Urine RBC <1 /hpf (0 - 3) Urine Microscopic WBC /HPF (0-3) Urine Squamous Epithelial Cells None seen /hpf (<5) Urine Bacteria None seen /hpf (None Seen) Urine Glucose 4+ mg/dL (Normal) Troponin I High Sensitivity 4 ng/L (</=54) B-Type Natriuretic Peptide 72.67 pg/mL (0-100) Lipase 54 U/L (12-53) Other Laboratory Tests 02/18/25 14:29 02/17/25 08:28 Brief Hx & Hospital Course: 84-year-old male grossly obese history of diabetes AFib on Coumadin obstructive sleep apnea COPD home oxygen use history of gastric bypass came in for acute abdominal pain found to have perforated viscus. Radiologist to drain the fluid from the intra-abdominal abscess. Patient was placed on broad-spectrum antibiotics. Seen by surgeon Dr. Bird. Patient had acute hypoxic respiratory failure seen by pulmonology Dr. Bynum which has significantly improved. Patient had Zenaida in the abdominal aspirate started on Diflucan IV converted to p.o.. At the time of discharge patient is afebrile stable vital signs Physical therapy ordered. The [facility] patient has had a long and protracted course in the hospital for about 37 days General condition satisfactory but poor at the time of discharge Consults/Reason for consult Radiology Cardiology Pulmonology Operations or Procedures CT abdomen pelvis without contrast Drainage of the intra-abdominal abscess Condition at Discharge: Fair Final Diagnosis/Problems List Acute hypoxic respiratory failure: Oxygen by nasal cannula, chest x-ray, consult for Chronic hypercarbic respiratory failure Dependence on home oxygen Intractable abdominal pain resolved Perforated viscus and pneumoperitoneum, with history of gastric bypass, conservative management consult by Dr. Bird appreciated Left upper quadrant abscess status post drainage, discontinued antibiotics Lactic acidosis, resolved Zenaida in the abdominal abscess aspirate: Fluconazole converted to p.o. Sepsis due to above Acute respiratory distress Diabetes with hyperglycemia AFib on Coumadin Morbid obesity Obstructive sleep apnea: CPAP Moderate malnutrition Gross obesity Discharge Disposition: Half-Way Facility Discharge Instruct/Medications Diet: Cardiac 2g Na,low cholest Activity: Light activity Follow Up/Referral: Follow up with the [facility] Medications: see list 39 (Time taken for discharge summary 39 minutes) Discharge Statement: "Patient was advised to return to the ER or call 911 if any headaches, dizziness, shortness of breath, chest pain, abdominal pain, bleeding, fevers, or worsening of medical condition. Patient was counseled about treatment plan, medications, possible side effects, patientverbalized understanding. All questions were answered to the best of my ability. This discharge took greater then 30 minutes in planning, reviewing documentation, counseling the patient, and discussing with other team members." ASSESSMENT ASSESSMENT Hospital Course Improved Assessment Acute hypoxic respiratory failure: Oxygen by nasal cannula, chest x-ray, consult for Chronic hypercarbic respiratory failure Dependence on home oxygen Intractable abdominal pain resolved Perforated viscus and pneumoperitoneum, with history of gastric bypass, conservative management consult by Dr. Bird appreciated Left upper quadrant abscess status post drainage, discontinued antibiotics Lactic acidosis, resolved Zenaida in the abdominal abscess aspirate: Fluconazole converted to p.o. Sepsis due to above Acute respiratory distress Diabetes with hyperglycemia AFib on Coumadin Morbid obesity Obstructive sleep apnea: CPAP Moderate malnutrition Gross obesity Date of Service: Feb 21, 2025 Billing Provider: PROMISE CASTANO MD Common Visit Codes: 11899-LLH/OBS DISCH DAY >30min PROMISE CASTANO MD Feb 21, 2025 11:47
--- NOTE | 2025-02-21 12:42 | DVHPN2 ---
Progress Note - Dictate Date Seen: Feb 21, 2025 Medical Necessity Reason Pt with a Central, PICC or Fol: No vital signs Vital Sign Date Time Temp Pulse Resp B/P (MAP) Pulse Ox O2 Delivery O2 Flow Rate FiO2 02/21/25 10:59 82 18 98 02/21/25 10:57 Nasal Cannula* 4 36 02/21/25 08:30 98.1 111/69 (83) 98.1 Total Intake and Output 02/20/25 02/20/25 02/21/25 15:00 23:00 07:00 Intake Total 1292 ml 250 ml Output Total 2300 ml 1700 ml Balance -1008 ml -1450 ml medications Current Medications Medications Dose Ordered Sig/Vincent Route Start Time Stop Time Status Last Admin Dose Admin Warfarin Sodium RX PROTOCOL PER PHARMACY PO 01/15/25 01:45 Cancel Potassium Chloride 100 ml @ 50 mls/hr Q2H IV 01/26/25 17:30 01/26/25 21:29 UNV Albuterol 2.5 mg Q4HR NEB 02/03/25 06:00 02/21/25 10:49 2.5 MG Ipratropium [place] 0.5 mg Q4HR NEB 02/03/25 06:00 02/21/25 10:49 0.5 MG Albuterol 2.5 mg Q2HPRN PRN NEB 02/04/25 12:00 Ipratropium [place] 0.5 mg Q2HPRN PRN NEB 02/04/25 12:00 Ipratropium [place] 0.5 mg Q4HR NEB 02/05/25 14:00 Cancel Megestrol Acetate 400 mg DAILY PO 02/05/25 12:00 02/21/25 08:39 400 MG Furosemide 20 mg BIDD IV 02/05/25 18:00 02/21/25 05:09 20 MG Empaglifozin 10 mg DAILY PO 02/06/25 10:00 02/21/25 08:46 10 MG Amiodarone HCl 200 mg Q12HR PO 02/09/25 22:00 02/21/25 08:47 200 MG Fluconazole 400 mg DAILY PO 02/11/25 10:00 02/21/25 08:47 400 MG Enteral Nutritional Formula 240 ml TIDWM PO 02/12/25 12:00 02/21/25 08:00 240 ML Ondansetron HCl 4 mg Q4HPRN PRN IV 02/14/25 22:45 02/21/25 08:36 4 MG Potassium Chloride 40 meq DAILY PO 02/17/25 18:00 02/21/25 08:40 40 MEQ Acetaminophen/ Hydrocodone Bitart 1 tab Q4HP PRN PO 02/17/25 14:30 02/21/25 08:48 1 TAB Alprazolam 1 mg TID PO 02/19/25 14:00 02/21/25 05:08 1 MG laboratory and microbiology Laboratory Tests 02/18/25 14:29 02/17/25 08:28 Test 02/18/25 14:29 Range/Units Serum Glucose 152 H 74-106 mg/dL Assessment/Plan Impression Acute hypoxemic respiratory failure Morbid obesity COPD- stable Pneumonia SBO Patient seen and examined Events Low oxygen requirements On 3 liters nasal cannula No acute events Labs and imaging reviewed CT of the chest reviewed Splenic/ perisplenic collection extending into the subdiaphragmatic space measuring 13.2 x 1.4 cm, previously 16.7 x 3.6 cm. Small left and tiny right pleural effusions. Left lower lobe airspace consolidation. Soft tissue edema / anasarca. Gastrojejunostomy. Moderate distention of the gastric remnant. Moderate to large volume stool in the colon. 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 Management Supplemental oxygen Titrate to maintain sats 90% or above Incentive spirometry Prn bipap to use during sleep Continue antibiotics F/u cultures Bronchodilators Monitor renal function Monitor electrolytes Supplement as needed Pain control Avoid oversedation F/u general surgery Awaiting placement DVT prophylaxis Dietary Evaluation Review Comments: 1. Advance TPN to meet at least 75% estimated needs 2. Contineu current POC Expected Outcomes/Goals: To meet >75% estimated needs Fu 2-3 days Plan discussed with: Patient MIK COLLAZO MD Feb 21, 2025 12:42
[2025-02-21 13:12] LABS: Eosinophils # (auto) 0.2 10 ^3/uL (0-0.8); Hemoglobin 9.2 g/dL (13.5-17.5); Monocytes # (auto) 1.2 10 ^3/uL (0-1.3); Neutrophils % (auto) 70.5 % (37.0-80.0); Nucleated Red Blood Cells % 0.1 %
[2025-02-21 13:13] LABS: Basophils # (auto) 0 10 ^3/uL (0-0.2); Basophils % (auto) 0.4 % (0.0-2.0); Eosinophils % (auto) 2.3 % (0.0-7.0); Hematocrit 29.8 % (41.0-53.0); Lymphocytes # (auto) 1.5 10 ^3/uL (0.4-5.4); Lymphocytes % (auto) 15.2 % (10.0-50.0); Mean Corpuscular Hemoglobin 22.3 pg (28.0-32.0); Mean Corpuscular Hgb Conc. 30.7 g/dL (32.0-36.0); Mean Corpuscular Volume 72.7 fL (80.0-100.0); Monocytes % (auto) 11.6 % (0.0-12.0); Neutrophils # (auto) 7.1 10 ^3/uL (1.6-8.6); Platelet Count (auto) 591 10^3/uL (140-450); Red Blood Cells 4.11 10^6/uL (4.5-5.90); White Blood Cell 10.1 10^3/uL (4.4-10.8)
[2025-02-21 13:22] LABS: Alanine Aminotransferase 22 U/L (7-40); Albumin 3.7 g/dL (3.2-4.8); Alkaline Phosphatase 70 U/L (46-116); Anion Gap 5 (5-15); Aspartate Aminotransferase 21 U/L (<34); BUN/Creatinine Ratio 22.7 (10.0-20.0); Blood Urea Nitrogen 17 mg/dL (9-23); Calcium 9.4 mg/dL (8.7-10.4); Carbon Dioxide 31 mmol/L (20-31); Chloride 101 mmol/L (98-107); Glucose 128 mg/dL (74-106); Potassium 4.9 mmol/L (3.5-5.1); Red Cell Distribution Width 20.1 % (11.8-14.3); Sodium 137 mmol/L (136-145); Total Protein 7.5 g/dL (5.7-8.2)
[2025-02-21 13:23] LABS: Bilirubin, Total < 0.2 mg/dL (0.2-1.0)
--- NOTE | 2025-02-21 23:17 | DVHPN2 ---
Progress Note - Dictate Date Seen: Feb 21, 2025 Medical Necessity Reason Pt with a Central, PICC or Fol: No Subjective Patient was seen and evaluated in follow up. No overnight events. Patient is on 4 LPM NC. HGB 9.2, HCT 29.8. Patient is being arranged for SNF placement. Telemetry reviewed. vital signs Vital Sign Date Time Temp Pulse Resp B/P (MAP) Pulse Ox O2 Delivery O2 Flow Rate FiO2 02/21/25 21:00 98.0 74 17 126/71 (89) 96 98.0 02/21/25 20:00 Nasal Cannula* 4 36 Total Intake and Output 02/20/25 02/20/25 02/21/25 15:00 23:00 07:00 Intake Total 1292 ml 250 ml Output Total 2300 ml 1700 ml Balance -1008 ml -1450 ml medications Current Medications Medications Dose Ordered Sig/Vincent Route Start Time Stop Time Status Last Admin Dose Admin Warfarin Sodium RX PROTOCOL PER PHARMACY PO 01/15/25 01:45 Cancel Potassium Chloride 100 ml @ 50 mls/hr Q2H IV 01/26/25 17:30 01/26/25 21:29 UNV Albuterol 2.5 mg Q4HR NEB 02/03/25 06:00 02/21/25 14:47 2.5 MG Ipratropium Mace[place] 0.5 mg Q4HR NEB 02/03/25 06:00 02/21/25 14:47 0.5 MG Albuterol 2.5 mg Q2HPRN PRN NEB 02/04/25 12:00 Ipratropium Maceo 0.5 mg Q2HPRN PRN NEB 02/04/25 12:00 Ipratropium [place]ace[place] 0.5 mg Q4HR NEB 02/05/25 14:00 Cancel Megestrol Acetate 400 mg DAILY PO 02/05/25 12:00 02/21/25 08:39 400 MG Furosemide 20 mg BIDD IV 02/05/25 18:00 02/21/25 17:32 20 MG Empaglifozin 10 mg DAILY PO 02/06/25 10:00 02/21/25 08:46 10 MG Amiodarone HCl 200 mg Q12HR PO 02/09/25 22:00 02/21/25 08:47 200 MG Fluconazole 400 mg DAILY PO 02/11/25 10:00 02/21/25 08:47 400 MG Enteral Nutritional Formula 240 ml TIDWM PO 02/12/25 12:00 02/21/25 18:00 240 ML Ondansetron HCl 4 mg Q4HPRN PRN IV 02/14/25 22:45 02/21/25 17:27 4 MG Potassium Chloride 40 meq DAILY PO 02/17/25 18:00 02/21/25 08:40 40 MEQ Acetaminophen/ Hydrocodone Bitart 1 tab Q4HP PRN PO 02/17/25 14:30 02/21/25 17:34 1 TAB Alprazolam 1 mg TID PO 02/19/25 14:00 02/21/25 14:15 1 MG objective GENERAL: Alert and oriented x 3. No acute distress. EYES: PERRL, EOMI. Anicteric. HENT: Moist mucous membranes. LUNGS: Diminished breath sounds. CARDIOVASCULAR: Regular rate and rhythm. ABDOMEN: Soft, non-tender and non-distended. EXTREMITIES: No edema. NEUROLOGIC: No focal neurological deficits. SKIN: Warm, dry. laboratory and microbiology Laboratory Tests 02/21/25 13:00 Test 02/21/25 13:00 Range/Units Serum Glucose 128 H 74-106 mg/dL Problem List Acute decompensated HFpEF, NYHA class III. Paroxysmal Atrial fibrillation, Stage 3a (on Xarelto). Hypertension. Pneumoperitoneum. Sepsis. History of abdominal aortic aneurysm. Pulmonary hypertension. Type 2 diabetes mellitus. Morbid obesity. Assessment/Plan Continued all current supportive medical care. [place] for pain management. Amiodarone. Diuretics with Lasix. Metoprolol. Additional plan as per the hospital course. Dietary Evaluation Review Comments: 1. Advance TPN to meet at least 75% estimated needs 2. Contineu current POC Expected Outcomes/Goals: To meet >75% estimated needs Fu 2-3 days Plan discussed with: Patient KRISTIN JOSEPH MD Feb 21, 2025 23:17
== END 2025-02-21 21:36 | DRG 871 ==
LOC: EDBD 23:47 → ER 23:47 → OVERFLOW 01-15 01:37 → TELE-WESTW 01-15 03:40
PROVIDERS: ADMIT Family Medicine; ATTEND Family Medicine
PROC: 0D9670Z Drainage of Stomach with Drainage Device, Via Natural or Artificial Opening (ICD-10-PCS; 2025-01-15)
PROC: 02HV33Z Insertion of Infusion Device into Superior Vena Cava, Percutaneous Approach (ICD-10-PCS; 2025-01-16)
PROC: B548ZZA Ultrasonography of Superior Vena Cava, Guidance (ICD-10-PCS; 2025-01-16)
PROC: 5A09357 Assistance with Respiratory Ventilation, Less than 24 Consecutive Hours, Continuous Positive Airway Pressure (ICD-10-PCS; 2025-01-17)
PROC: 0W9G30Z Drainage of Peritoneal Cavity with Drainage Device, Percutaneous Approach (ICD-10-PCS; principal; 2025-01-25)
PROC: 30233N1 Transfusion of Nonautologous Red Blood Cells into Peripheral Vein, Percutaneous Approach (ICD-10-PCS; 2025-02-03)
DX: A41.9 Sepsis, unspecified organism (principal); I50.33 Acute on chronic diastolic (congestive) heart failure; K63.1 Perforation of intestine (nontraumatic); K65.1 Peritoneal abscess; J96.21 Acute and chronic respiratory failure with hypoxia; J96.22 Acute and chronic respiratory failure with hypercapnia; E87.20 Acidosis, unspecified; K56.609 Unspecified intestinal obstruction, unspecified as to partial versus complete obstruction; Z68.41 Body mass index [BMI] 40.0-44.9, adult; J44.0 Chronic obstructive pulmonary disease with (acute) lower respiratory infection; E44.0 Moderate protein-calorie malnutrition; L02.211 Cutaneous abscess of abdominal wall; E11.65 Type 2 diabetes mellitus with hyperglycemia; I27.20 Pulmonary hypertension, unspecified; E66.01 Morbid (severe) obesity due to excess calories; E87.6 Hypokalemia; G47.33 Obstructive sleep apnea (adult) (pediatric); I48.0 Paroxysmal atrial fibrillation; E78.5 Hyperlipidemia, unspecified; F41.0 Panic disorder [episodic paroxysmal anxiety]; G89.29 Other chronic pain; I45.10 Unspecified right bundle-branch block; I11.0 Hypertensive heart disease with heart failure; E83.39 Other disorders of phosphorus metabolism; Z88.8 Allergy status to other drugs, medicaments and biological substances; Z79.4 Long term (current) use of insulin; Z79.84 Long term (current) use of oral hypoglycemic drugs; Z79.899 Other long term (current) drug therapy; Z98.84 Bariatric surgery status; Z96.651 Presence of right artificial knee joint; Z99.81 Dependence on supplemental oxygen; Z87.891 Personal history of nicotine dependence; Z82.49 Family history of ischemic heart disease and other diseases of the circulatory system; Z90.49 Acquired absence of other specified parts of digestive tract; Z86.79 Personal history of other diseases of the circulatory system; Z79.01 Long term (current) use of anticoagulants; Z91.119 Patient's noncompliance with dietary regimen due to unspecified reason
CPT/HCPCS: 10005; 36415; 36569; 36600; 71045; 74150; 74176; 74246; 76604; 76937; 76942; 77012; 80048; 80053; 80069; 80202; 81001; 82040; 82570; 82805; 82962; 83036; 83605; 83690; 83735; 83880; 84100; 84478; 84484; 85007; 85025; 85027; 85379; 85610; 85730; 86850; 86900; 86901; 86920; 87040; 87077; 87081; 87186; 87205; 93005; 93306; 93970; 93971; 94640; 94660; 96372; 96374; 97110; 97116; 97163; 97530; 99291; C1729; G0378; J1450; J1815; J2003; J2250; J2405; J2470; J2543; J3480; J7060; J7131

== ENCOUNTER 2025-02-22 03:00 | Emergency (ER) | payer MEDICARE ==
[~2025-02-22] VITALS: Ht 172.7 cm; Wt 111.0 kg
[~2025-02-22 03:00] MED LIST changes: +CHLO12TA PO; +EMPA1TAB PO; +FLUT1AER3 IN; +RIV20T PO
--- NOTE | 2025-02-22 03:08 | ECG ---
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
--- NOTE | 2025-02-22 03:24 | ED.PDOC ---
HPI Comments 74 year old male presents to the ED via EMS with a chief complaint of chest pain onset yesterday. Per EMS, patient is from [facility], states he was experiencing chest pain, 6/10 pain, worsens with palpation as well as shortness of breath. Patient is on 2L O2 at home. PMHx COPD, DM, A-fib, HTN, HLD. Patient is a poor historian. No other symptoms or modifying factors present at this time. Chief Complaint: Chest Pain Time Seen by MD: 03:15 Primary Care Provider: Elva Carballo Notes: Medications, Allergies Allergies: Coded Allergies: Statins (Verified Allergy, Severe, 01/01/24) Home Meds Reported Medications Rivaroxaban (Xarelto Tablet) 20 Mg Tb, 20 MG PO DAILY, TAB 01/15/25 Lisinopril (Lisinopril) 40 Mg Tab, 40 MG PO DAILY for 30 Days, MG 01/15/25 Chlorpheniramine Maleate (Chlorpheniramine Maleate) 12 Mg Tab, 12 MG PO DAILY PRN for allergy, TAB 01/15/25 Raubnfuqmyz-Jmldjomfjsgo-Silmb (Trelegy Ellipta 100-62.5-25 Mcg/INH) 1 Aer Aer, 1 AER IN DAILY, AER 01/15/25 Empagliflozin (Jardiance) 10 Mg Tab, 10 MG PO DAILY, TAB 01/15/25 Cetirizine Hcl (Kls Aller-Renetta) 10 Mg Tab, 1 TAB PO DAILY, #30 TAB 3 Refills 01/11/24 Omeprazole (Gnp Omeprazole) 20 Mg Tab, 1 TAB PO BID, #90 TAB 1 Refill 01/11/24 Polyethylene Glycol 3350 (Polyethylene Glycol) 17 Gm/Scoop Pow, 17 GM PO DAILY, POW 01/11/24 Warfarin Sodium (Warfarin Sodium) 5 Mg Tab, 15 MG PO MWFSa for 30 Days, MG 01/02/24 Diltiazem Hcl (Cardizem La) 120 Mg Tab, 1 01/01/24 Hctz (Hydrochlorothiazide) 25 Mg Tab, 12.5 MG PO DAILY 01/01/24 Lisinopril (Lisinopril) 40 Mg Tab, 1 TAB PO DAILY 01/01/24 Warfarin Sodium (Warfarin Sodium) 10 Mg Tab, 1 TAB PO TUE,BROOKE,SUN 01/01/24 Tramadol Hcl (Tramadol Hcl) 50 Mg Tab, 1 TAB PO BIDPRN PRN 01/01/24 Cyclobenzaprine HCl (Cyclobenzaprine Hydrochlo) 5 Mg Tab, 1 TAB PO BID 01/01/24 Gabapentin (Gabapentin) 300 Mg Cap, 3 CAP PO TID 01/01/24 Metoprolol Succinate (Metoprolol Succinate Er) 100 Mg Tab, 50 TAB PO DAILY 01/01/24 Metformin Hydrochloride (Metformin Hcl) 1,000 Mg Tab, 1 TAB PO BID 01/01/24 Oxycodone Hcl (OXYCODONE HCL) 5 Mg Tb, 1 TAB PO TID PRN 01/01/24 Information Source: Patient, Emergency Med Personnel Mode of Arrival: EMS Severity: Moderate Timing: Hours Duration: Since onset Prehospital treatment: None Location: Chest (L) Radiation: No Radiation Quality: Sharp Onset: At Rest Cardiac Risk Factors: Hyperlipidemia, HTN, Diabetes, None PE Risk Factors: None History of: None Modifying Factors: Nothing Associated Signs and Symptoms: SOB Past Medical History PAST MEDICAL HISTORY: AFIB, COPD, DM, High Lipids, HTN Surgical History: Denies all surgeries Family History Family History: Reviewed,noncontributory to illness Social History Smoker: Non-Smoker, Unknown Alcohol: Denies ETOH Use, Unknown Drugs: Denies Drug Use Lives In: Assisted Care Constitutional: denies: chills, diaphoresis, fatigue, fever, malaise, sweats, weakness, others EENTM: denies: blurred vision, double vision, ear bleeding, ear discharge, ear drainage, ear pain, ear ringing, eye pain, eye redness, hearing loss, mouth pain, mouth swelling, nasal discharge, nose bleeding, nose congestion, nose pain, photophobia, tearing, throat pain, throat swelling, voice changes, others Respiratory: reports: shortness of breath; denies: cough, hemoptysis, orthopnea, SOB at rest, SOB with excertion, stridor, wheezing, others Cardiovascular: reports: chest pain; denies: dizzy spells, diaphoresis, Dyspnea on exertion, edema, irregular heart beat, left arm pain, lightheadedness, palpitations, PND, syncope, others Gastrointestinal: denies: abdomen distended, abdominal pain, blood streaked bowels, constipated, diarrhea, dysphagia, difficulty swallowing, hematemesis, melena, nausea, poor appetite, poor fluid intake, rectal bleeding, rectal pain, vomiting, others Genitourinary: denies: burning, dysuria, flank pain, frequency, hematuria, incontinence, penile discharge, penile sore, pain, testicle pain, testicle swelling, urgency, others Neurological: denies: dizziness, fainting, headache, left sided numbness, left sided weakness, numbness, paresthesia, pre-existing deficit, right sided numbness, right sided weakness, seizure, speech problems, tingling, tremors, weakness, others Musculoskeletal: denies: back pain, gout, joint pain, joint swelling, muscle pain, muscle stiffness, neck pain, others Integumetry: denies: bruises, change in color, change in hair/nails, dryness, laceration, lesions, lumps, rash, wounds, others Allergic/Immunocompromised: denies: Difficulty Healing, Frequent Infections, Hives, Itching, others Hematologic/Lymphatic: denies: anemia, blood clots, easy bleeding, easy bruising, swollen glands, others Endocrine: denies: excessive hunger, excessive sweating, excessive thirst, excessive urination, flushing, intolerance to cold, intolerance to heat, unexplained weight gain, unexplained weight loss, others Psychiatric: denies: anxiety, bipolar disorder, depression, hopeless, panic disorder, schizophrenia, sleepless, suicidal, others All Other Systems: Reviewed and Negative Physical Exam General Appearance: Normal HEENT: Normal ENT Inspection, Pharynx Normal, TMs Normal Neck: Full Range of Motion, Non-Tender, Normal, Normal Inspection Respiratory: Chest Non-Tender, Lungs Clear, No Accessory Muscle Use, No Respiratory Distress, Normal Breath Sounds Cardiovascular: No Edema, No JVD, No Murmur, No Gallop, Normal Peripheral Pulses, Regular Rate/Rhythm Breast Exam: Deferred Gastrointestinal: No Organomegaly, Non Tender, No Pulsatile Mass, Normal Bowel Sounds, Soft Genitalia: Deferred Pelvic: Deferred Rectal: Deferred Extremities: No calf tenderness, Normal capillary refill, Normal inspection, Normal range of motion, Non-tender, No pedal edema Musculoskeletal : Apperance: Normal Neurologic: Alert, architectural examiner II-XII nml as Tested, No Motor Deficits, Normal Affect, Normal Mood, No Sensory Deficits Cerebellar Function: Normal Reflexes: Normal Skin: Dry, Normal Color, Warm Lymphatic: No Adenopathy EKG EKG : Pulse Rate (adult): 84 Cardiac Rhythm: NSR Was a procedure done? Was a procedure done?: No CP Differential Dx Differential Diagnosis: MAT, UT, PAC's Differential Diagnosis: HTN Essential, HTN Accelerated Differential Diagnosis: Chest Wall Pain, Gastritis, Myocardial Infarction, Pericarditis X-Ray, Labs, Meds, VS Vital Signs Date Time Temp Pulse Resp B/P (MAP) Pulse Ox O2 Delivery O2 Flow Rate FiO2 02/22/25 04:02 80 02/22/25 03:24 84 02/22/25 03:08 98.2 85 20 134/59 (84) 92 98.2 02/22/25 03:03 84 Lab Test 02/22/25 04:10 02/22/25 03:13 Range/Units Troponin I High Sensitivity Pending 5 </=54 ng/L White Blood Count 9.7 4.4-10.8 10^3/uL Red Blood Count 4.33 L 4.5-5.90 10^6/uL Hemoglobin 9.8 L 13.5-17.5 g/dL Hematocrit 31.8 L 41.0-53.0 % Mean Corpuscular Volume 73.4 L 80.0-100.0 fL Mean Corpuscular Hemoglobin 22.6 L 28.0-32.0 pg Mean Corpuscular Hemoglobin Concent 30.8 L 32.0-36.0 g/dL Red Cell Distribution Width 20.5 H 11.8-14.3 % Platelet Count 629 H 140-450 10^3/uL Mean Platelet Volume 6.6 L 6.9-10.8 fL Neutrophils (%) (Auto) 69.6 37.0-80.0 % Lymphocytes (%) (Auto) 16.9 10.0-50.0 % Monocytes (%) (Auto) 10.8 0.0-12.0 % Eosinophils (%) (Auto) 1.8 0.0-7.0 % Basophils (%) (Auto) 0.9 0.0-2.0 % Neutrophils # (Auto) 6.8 1.6-8.6 10 ^3/uL Lymphocytes # (Auto) 1.6 0.4-5.4 10 ^3/uL Monocytes # (Auto) 1.1 0-1.3 10 ^3/uL Eosinophils # (Auto) 0.2 0-0.8 10 ^3/uL Basophils # (Auto) 0.1 0-0.2 10 ^3/uL Nucleated Red Blood Cells 0.1 % Sodium Level 136 136-145 mmol/L Potassium Level 4.3 3.5-5.1 mmol/L Chloride Level 99 98-107 mmol/L Carbon Dioxide Level 29 20-31 mmol/L Anion Gap 8 5-15 Blood Urea Nitrogen 22 9-23 mg/dL Creatinine 0.75 0.700-1.30 mg/dL Glomerular Filtration Rate Calc 94 >90 mL/min BUN/Creatinine Ratio 29.3 H 10.0-20.0 Serum Glucose 158 H 74-106 mg/dL Calcium Level 9.0 8.7-10.4 mg/dL Time of 1ST Reevaluation: 03:45 Reevaluation 1ST: Unchanged Patient Education/Counseling: Diagnosis, Treatment, Prognosis Family Education/Counseling: No Family Present SEPSIS Sepsis Screen Date sepsis recognized/suspect: Feb 22, 2025 Time Sepsis recognized/suspect: 309 Recent Procedure: No On Antibiotic Therapy: No Respiratory Rate >20: No Heart Rate >90: No Temp<36 C (96.8 F) or >38.3 C: No SBP <90 or MAP <65 mmHG: No New Acute Mental Status Change: No Is the patient on CPAP, BIPAP,: No Physician Orders Urinalysis (02/22/25 03:07) Chest Portable (02/22/25 03:07) Troponin-I Hs (02/22/25 04:07) Troponin-I Hs (02/22/25 06:07) Electrocardigram (02/22/25 06:07) Vital Signs Date Time Temp Pulse Resp B/P (MAP) Pulse Ox O2 Delivery O2 Flow Rate FiO2 02/22/25 04:02 80 02/22/25 03:24 84 02/22/25 03:08 98.2 85 20 134/59 (84) 92 98.2 02/22/25 03:03 84 Laboratory Tests Test 02/22/25 03:13 White Blood Count 9.7 10^3/uL (4.4-10.8) Departure 1 Departure Time of Disposition: 04:44 (Patient presented with chest pain that was conc erning for possible STEMI, ACS, PE, Pneumonia, Muscle Strain, COPD, Dissection. Data: 1. I ordered and reviewed the result of at least 3 labs including a CBC, BMP, and Troponin. 2. I independently interpreted the following tests: EKG which shows sinus arrhythmia and Chest X-ray which shows benign chest.Risk:This patient has a high risk of morbidity due to further diagnostic testing or treatment and may suffer from an acute cardiac or respiratory disorder. Workup reveals concern for ACS and patient should be admitted for further workup and possible expert consultation. ) Impression: Primary Impression: Acute chest pain Disposition: ADMITTED INPATIENT Admit to: Med Surg Condition: Serious Critical Care Note Critical Care Time?: Yes Critical care comment: Acute chest pain Authorized and Performed by: Russ Webb MD Total critical care time: Approximately 39 minutes Due to a high probability of clinically significant, life threatening deterioration, the patient required my highest level of preparedness to intervene emergently and I personally spent this critical care time directly and personally managing the patient. This critical care time included obtaining a history; examining the patient; pulse oximetry; ordering and review of studies; arranging urgent treatment with development of a management plan; evaluation of patient's response to treatment; frequent reassessment; and, discussions with other providers. This critical care time was performed to assess and manage the high probability of imminent, life-threatening deterioration that could result in multi-organ failure. It was exclusive of separately billable procedures and treating other patients and teaching time. Please see my other sections and the rest of the note for further information on patient assessment and treatment. Stability Stability form required: No Heart Score Heart Score: Heart Score Response (Comments) Value History Moderate Suspicious 1 EKG Repolarization Disturb 1 Age >65 2 Risk Factors >3 or Hx ASHD 2 Troponin Normal limit 0 Total 6 I personally scribed for RUSS WBEB MD ([email or web address]) on 02/22/25 at 03:24. Electronically submitted by Pearl Magdaleno ([email or web address]). RUSS WEBB MD Feb 22, 2025 03:24
[2025-02-22 03:33] LABS: Basophils # (auto) 0.1 10 ^3/uL (0-0.2); Eosinophils # (auto) 0.2 10 ^3/uL (0-0.8); Monocytes # (auto) 1.1 10 ^3/uL (0-1.3); Neutrophils # (auto) 6.8 10 ^3/uL (1.6-8.6)
[2025-02-22 03:40] LABS: Basophils % (auto) 0.9 % (0.0-2.0); Eosinophils % (auto) 1.8 % (0.0-7.0); Hematocrit 31.8 % (41.0-53.0); Hemoglobin 9.8 g/dL (13.5-17.5); Lymphocytes # (auto) 1.6 10 ^3/uL (0.4-5.4); Lymphocytes % (auto) 16.9 % (10.0-50.0); Mean Corpuscular Hemoglobin 22.6 pg (28.0-32.0); Mean Corpuscular Hgb Conc. 30.8 g/dL (32.0-36.0); Mean Corpuscular Volume 73.4 fL (80.0-100.0); Monocytes % (auto) 10.8 % (0.0-12.0); Neutrophils % (auto) 69.6 % (37.0-80.0); Nucleated Red Blood Cells % 0.1 %; Platelet Count (auto) 629 10^3/uL (140-450); Red Blood Cells 4.33 10^6/uL (4.5-5.90); Red Cell Distribution Width 20.5 % (11.8-14.3); White Blood Cell 9.7 10^3/uL (4.4-10.8)
[2025-02-22 03:50] LABS: Chloride 99 mmol/L (98-107); Potassium 4.3 mmol/L (3.5-5.1); Sodium 136 mmol/L (136-145)
[2025-02-22 03:51] LABS: Anion Gap 8 (5-15); Carbon Dioxide 29 mmol/L (20-31)
[2025-02-22 03:55] VITALS: PULSE 58; RESP 16; O2SAT 96
[2025-02-22 03:56] LABS: BUN/Creatinine Ratio 29.3 (10.0-20.0); Blood Urea Nitrogen 22 mg/dL (9-23)
[2025-02-22 03:58] LABS: Glucose 158 mg/dL (74-106)
--- NOTE | 2025-02-22 04:22 | ECG ---
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
--- NOTE | 2025-02-22 05:40 | DVH ---
CHEST RADIOGRAPH Indication: cp Technique: Single frontal view of the chest was obtained COMPARISON: XY CHEST XRAY 1 VIEW on DOS: 02/05/25, XY CHEST PORTABLE on DOS: 02/01/25, XY CHEST PORTABLE on DOS: 01/22/25, XY CHEST PORTABLE on DOS: 01/21/25, XY CHEST XRAY 1 VIEW on DOS: 01/19/25 FINDINGS: Lines and Tubes: Right PICC in satisfactory position. Lungs: Mild congestion Pleura: No effusion. No pneumothorax. Cardiomediastinal contours: Unremarkable Bones: Unremarkable IMPRESSION: Mild pulmonary vascular congestion, slightly improved since 02/05/2025.
[2025-02-22] MEDS: MORPHINE SULFATE INJ 2 MG/ml SYRG ONE (05:46)
[2025-02-22] MEDS: ONDANSETRON HCL 4 MG/2 ML VIAL ONE (05:46)
--- NOTE | 2025-02-22 06:23 | ECG ---
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
[2025-02-22 06:24] LABS: Urine Bacteria None Seen /hpf (None Seen)
[2025-02-22] MEDS: ONDANSETRON HCL 4 MG/2 ML VIAL IM ONE (06:30)
[2025-02-22 06:36] LABS: Urine Blood Negative /uL (Negative); Urine Clarity Clear (Clear); Urine Color Light-Yellow (Yellow); Urine Protein, UAD TRACE (Negative); Urine Specific Gravity 1.031 (1.001-1.035); Urine Squamous Epithelial Cell None Seen /hpf (<5); Urine Urobilinogen Normal (Negative); Urine WBC 1 /HPF (0-3); Urine pH 6.5 (5.0-9.0)
[2025-02-22] MEDS: MORPHINE SULFATE INJ 2 MG/ml SYRG IV PRN (07:22)
[2025-02-22 08:00] VITALS: PULSE 63; RESP 16; O2SAT 96
[2025-02-22] MEDS ORDERED: DOCUSATE SOD 100 MG CAP PO PRN (10:00)
[2025-02-22] MEDS ORDERED: ACETAMINOPHEN 325 MG TAB PO PRN (10:00)
[2025-02-22] MEDS ORDERED: ONDANSETRON HCL 4 MG/2 ML VIAL IV PRN (10:00)
--- NOTE | 2025-02-22 10:14 | DVHHP2 ---
History of Present Illness Reason for Visit: Chest pain History of Present Illness Amrik Melendez is a 74-year-old male with past medical history of hypertension, hyperlipidemia, atrial fibrillation, diabetes, home oxygen use, and COPD, who called EMS due to chest pain. Patient was discharged from this facility last night. He states he called EMS to bring him back because he was having pain and Emiliano Perales was not bringing him his pain medicine. Cardiovascular: AFIB, HTN Pulmonary: COPD Endocrine: Diabetes Smoke: No ALCOHOL: none Drugs: None Lives: [facility] Domestic Violence: Neg Review of Systems Constitutional: No: Fever, Chills, Sweats, Weakness, Malaise, Other Eyes: No: Pain, Vision change, Conjunctivae inflammation, Eyelid inflammation, Other, Redness ENT: No: Ear pain, Ear discharge, Nose pain, Nose discharge, Nose congestion, Mouth pain, Mouth swelling, Throat pain, Throat swelling, Other Respiratory: No: Cough, Dry, Shortness of breath, SOB with excertion, Wheezing, Hemoptysis, Pleuritic Pain, Sputum, Wheezing, Other Cardiovascular: No: Chest Pain, Palpitations, Orthopnea, Paroxysmal Noc. Dyspnea, Edema, Lt Headedness, Other Gastrointestinal: No: Nausea, Vomiting, Abdominal Pain, Diarrhea, Constipation, Melena, Hematochezia, Other Genitourinary: No Dysuria, No Frequency, No Incontinence, No Hematuria, No Retention, No Other Musculoskeletal: No: other, neck pain, shoulder pain, arm pain, back pain, hand pain, leg pain, foot pain Skin: No: Rash, Lesions, Jaundice, Bruising, Other Neurological: No: Weakness, Numbness, Incoordination, Change in speech, Confusion, Seizures, Other Allergies: Coded Allergies: Statins (Verified Allergy, Severe, 01/01/24) Medications Current Medications Medications Dose Ordered Sig/Vincent Route Start Time Stop Time Status Last Admin Dose Admin Morphine Sulfate 2 mg [id number] PRN IV 02/22/25 06:30 02/22/25 07:22 2 MG Exam Vital Signs Vital Signs Date Time Temp Pulse Resp B/P (MAP) Pulse Ox O2 Delivery O2 Flow Rate FiO2 02/22/25 08:00 98.2 69 23 140/69 (92) 96 98.2 02/22/25 03:55 Nasal Cannula* 3 32 General Appearance: Alert, Oriented X3, Cooperative, No acute distress HEENT: Atraumatic, PERRLA, Mucous membr. moist/pink Respiratory: Clear to auscultation, Normal air movement Cardiovascular: Regular rate, Normal S1, Normal S2, No murmurs Abdominal: Normal bowel sounds, Soft, No tenderness, No hepatospenomegaly Extremities: No clubbing, No cyanosis, No edema, Normal pulses, No tenderness/swelling Skin: No rashes, No breakdown, No significant lesion Neuro: Normal speech Psych/Mental Status: Mental status NL, Mood NL Labs/Xrays Labs Test 02/22/25 06:44 02/22/25 06:00 02/22/25 04:10 02/22/25 03:13 Range/Units POC Glucose 129 H 70-106 mg/dl Urine Color Light-yellow Yellow Urine Clarity Clear Clear Urine pH 6.5 5.0-9.0 Urine Specific [place] 1.031 1.001-1.035 Urine Protein Trace H Negative Urine Ketones Negative Negative Urine Blood Negative Negative /uL Urine Nitrite Negative Negative Urine Bilirubin Negative Negative Urine Urobilinogen Normal Negative mg/dL Urine Leukocyte Esterase Negative Negative /uL Urine RBC 9 0 - 3 /hpf Urine Microscopic WBC 1 0-3 /HPF Urine Squamous Epithelial Cells None seen <5 /hpf Urine Bacteria None seen None Seen /hpf Urine Glucose 4+ H Normal mg/dL Troponin I High Sensitivity 5 </=54 ng/L White Blood Count 9.7 4.4-10.8 10^3/uL Red Blood Count 4.33 L 4.5-5.90 10^6/uL Hemoglobin 9.8 L 13.5-17.5 g/dL Hematocrit 31.8 L 41.0-53.0 % Mean Corpuscular Volume 73.4 L 80.0-100.0 fL Mean Corpuscular Hemoglobin 22.6 L 28.0-32.0 pg Mean Corpuscular Hemoglobin Concent 30.8 L 32.0-36.0 g/dL Red Cell Distribution Width 20.5 H 11.8-14.3 % Platelet Count 629 H 140-450 10^3/uL Mean Platelet Volume 6.6 L 6.9-10.8 fL Neutrophils (%) (Auto) 69.6 37.0-80.0 % Lymphocytes (%) (Auto) 16.9 10.0-50.0 % Monocytes (%) (Auto) 10.8 0.0-12.0 % Eosinophils (%) (Auto) 1.8 0.0-7.0 % Basophils (%) (Auto) 0.9 0.0-2.0 % Neutrophils # (Auto) 6.8 1.6-8.6 10 ^3/uL Lymphocytes # (Auto) 1.6 0.4-5.4 10 ^3/uL Monocytes # (Auto) 1.1 0-1.3 10 ^3/uL Eosinophils # (Auto) 0.2 0-0.8 10 ^3/uL Basophils # (Auto) 0.1 0-0.2 10 ^3/uL Nucleated Red Blood Cells 0.1 % Sodium Level 136 136-145 mmol/L Potassium Level 4.3 3.5-5.1 mmol/L Chloride Level 99 98-107 mmol/L Carbon Dioxide Level 29 20-31 mmol/L Anion Gap 8 5-15 Blood Urea Nitrogen 22 9-23 mg/dL Creatinine 0.75 0.700-1.30 mg/dL Glomerular Filtration Rate Calc 94 >90 mL/min BUN/Creatinine Ratio 29.3 H 10.0-20.0 Serum Glucose 158 H 74-106 mg/dL Calcium Level 9.0 8.7-10.4 mg/dL CHEST RADIOGRAPH FINDINGS: Lines and Tubes: Right PICC in satisfactory position. Lungs: Mild congestion Pleura: No effusion. No pneumothorax. Cardiomediastinal contours: Unremarkable Bones: Unremarkable IMPRESSION: Mild pulmonary vascular congestion, slightly improved since 02/05/2025. Assessment/Plan Assessment/Plan Assessment: Diabetes mellitus with hyperglycemia, COPD, Atrial fibrillation, Hypertension, Plan: Admit to Med-Surg, Social service consult, Accu checks Q AC&HS with sliding scale, Physical therapy evaluation, Plan discussed with: Patient My Orders Orders - TA KATHLEEN Procedure Category Date Status Time Admit ADMIT 02/22/25 Transmitted 09:54 Code Status CODE 02/22/25 Transmitted 09:54 Hydrocodone-Acet PHA 02/22/25 Logged 5/325mg Tab (Kersey 10:00 Ondansetron Hcl PHA 02/22/25 Logged (Zofran) 10:00 Docusate Sodium PHA 02/22/25 Logged Capsule (Colace 10:00 Complete Blood Count LAB 02/23/25 Verified 04:00 Comprehensive LAB 02/23/25 Verified Metabolic Panel 04:00 Cardiac DIET 02/22/25 Transmitted Diet-2gna,Lofat,Lochol Lunch Pt Request For Service PT 02/22/25 Logged 09:54 Condition: Serious BRINA 02/22/25 In Process 09:54 Acetaminophen Tablet PHA 02/22/25 Logged (Tylenol Tablet) 10:00 Date of Service: Feb 22, 2025 Billing Provider: TA KATHLEEN Common Visit Codes: [id number] INP/OBS CARE (MOD) TA KATHLEEN Feb 22, 2025 10:14
[2025-02-22 12:00] VITALS: BP 123/61; PULSE 70; RESP 19; TEMP 97.9; O2SAT 96
[2025-02-22] MEDS: HYDROcodone-ACET 5/325MG TAB PO PRN (13:14)
== END 2025-02-22 14:16 | disposition home or self-care (01) ==
LOC: ER 03:00 → EDBD 03:00 → UNDOADMIN 09:54 → OVERFLOW 09:54 → UNDODISIN 14:15 → ER 14:16
DX: R07.89 Other chest pain (principal); E11.65 Type 2 diabetes mellitus with hyperglycemia; J44.9 Chronic obstructive pulmonary disease, unspecified; I48.91 Unspecified atrial fibrillation; I10 Essential (primary) hypertension; E78.5 Hyperlipidemia, unspecified; Z79.84 Long term (current) use of oral hypoglycemic drugs; Z79.899 Other long term (current) drug therapy; Z88.1 Allergy status to other antibiotic agents
CPT/HCPCS: 36415; 71045; 80048; 81001; 82947; 84484; 85025; 93005; 96372; 96374; 99285; J2270; J2405; 82962; 99291; G0378